=== PATIENT | male | born 1960 | race Caucasian/White ===

== ENCOUNTER 2019-09-06 10:55 | Outpatient (CLI) | payer OTHER, SELFPAY ==
--- NOTE | ~2019-09-06 | CT_ITS ---
EXAMINATION: CT lung screening DATE: 09/06/2019 11:19 INDICATION: Personal history of tobacco dependence, current smoker with 30 pack year history TECHNIQUE: Computed tomography (CT) of the chest was performed without intravenous contrast. The dose -length product (DLP) was 171.02 mGy-cm. Automated exposure control and iterative reconstruction tech mobileo were employed. COMPARISON: None FINDINGS: There is elevation of the right hemidiaphragm. A 4 mm nodule is present in the medial aspec t of the left lower lobe on image 74. There is an area of scarring in the right lower lobe. There is no pleural effusion or pneumothorax. No pathologically enlarged thoracic lymph nodes are identified. The heart size is normal. Calcified coronary artery atherosclerosis is noted. There is moderate thora cic spondylosis. IMPRESSION: 1. Lung-RADS category 2: Benign appearance or behavior. Continue annual screening with noncontrast lo w-dose chest CT in 12 months. Reviewed, dictated and finalized at location A. IMPRESSION: 1. Lung-RADS category 2: Benign appearance or behavior. Continue annual screeni ng with noncontrast low-dose chest CT in 12 months.
== END 2019-09-06 10:56 | disposition home or self-care (01) ==
LOC: ANHIMG 11:04
PROVIDERS: PCP Physician Assistant; Visit Provider Physician Assistant
DX: Z12.2 Encounter for screening for malignant neoplasm of respiratory organs (principal); Z87.891 Personal history of nicotine dependence
CPT/HCPCS: G0297

== ENCOUNTER 2020-10-23 13:46 | Outpatient (CLI) | payer MEDICARE, SELFPAY ==
--- NOTE | ~2020-10-23 | CT_ITS ---
EXAMINATION:CT lung screening DATE: 10/23/2020 14:18 INDICATION: Tobacco use. Current smoker with 30 pack year history. TECHNIQUE: Computed tomography (CT) of the chest was performed without intravenous contrast. Automate d exposure control and iterative reconstruction technique were employed. The dose-length product (DLP ) was 174.45 mGy-cm. COMPARISON: Chest CT 09/06/2019 FINDINGS: There is chronic elevation of right hemidiaphragm. There is mild atelectasis in the lungs, worst in right lower lobe. A calcified right lung nodule is consistent with old granulomatous disease . No pleural effusion. The heart size is normal. There are coronary artery calcifications. No pericar dial effusion. There are suture anchors in left humeral head. There are bridging endplate osteophytes at multiple levels in the spine, consistent with diffuse idiopathic skeletal hyperostosis (DISH). IMPRESSION: 1. Lung-RADS category 1: Negative. Continue annual screening with noncontrast low-dose chest CT in 12 months. Reviewed, dictated and finalized at location A. IMPRESSION: 1. Lung-RADS category 1: Negative. Continue annual screening with noncontrast l ow-dose chest CT in 12 months.
== END 2020-10-23 13:47 | disposition home or self-care (01) ==
PROVIDERS: PCP Physician Assistant; Visit Provider Physician Assistant
DX: Z13.6 Encounter for screening for cardiovascular disorders (principal); Z72.0 Tobacco use
CPT/HCPCS: 71271

== ENCOUNTER → 2021-11-02 10:01 | Outpatient (CLI) | payer MEDICARE, SELFPAY ==
--- NOTE | ~2021-11-02 | XR_ITS ---
XR orbits min 4V DATE: 11/02/2021 10:28 INDICATION: Right thigh swelling TECHNIQUE: AP and bilateral oblique views COMPARISON: None FINDINGS: The frontozygomatic sutures and orbital rims and floors appear intact bilaterally. No orbit al emphysema is evident. No radiopaque foreign body is identified. The frontal, ethmoid and maxillary sinuses and mastoid air cells appear normally developed and aerate d bilaterally. IMPRESSION: Negative orbits Reviewed, dictated and finalized at location B. IMPRESSION: Negative orbits
== END ==
PROVIDERS: PCP Physician Assistant; Visit Provider Physician Assistant
DX: H57.89 Other specified disorders of eye and adnexa (principal)
CPT/HCPCS: 70200

== ENCOUNTER 2021-11-15 08:23 | Outpatient (CLI) | payer MEDICARE, SELFPAY ==
--- NOTE | ~2021-11-15 | CT_ITS ---
EXAMINATION: CT lung screening DATE: 11/15/2021 08:54 INDICATION: PERS HX OF NICOTINE DEPENDENCE TECHNIQUE: Computed tomography (CT) of the chest was performed without intravenous contrast. Addition al 3D reconstructions utilizing coronal maximum intensity projection (MIP) were performed. Automated exposure control and iterative reconstruction technique were employed. The dose-length product was 15 3.12 mGy-cm. COMPARISON: 11/19/2020 FINDINGS: Chronic elevation of the right hemidiaphragm. Unchanged small calcified nodule in the right lower lob e consistent with old granulomatous disease. No other new or enlarging pulmonary nodules Unchanged sa gittally oriented linear band of discoid atelectasis/scarring extending from the superior to inferior through the right lower lobe. No pneumonia, pulmonary edema or pleural effusion. Heart size is daryn l. Atherosclerotic coronary artery calcifications. No pericardial effusion. No pathologically enlarge d thoracic lymphadenopathy. Visualized upper abdomen is unremarkable. There are bridging osteophytes at multiple levels in the spine, consistent with diffuse idiopathic skeletal hyperostosis (DISH). Sut ure anchors at the left humeral head consistent with prior rotator cuff repair. IMPRESSION: 1. . Lung-RADS category 1: Negative. Continue annual screening with noncontrast low-dose chest CT in 12 months. Reviewed, dictated and finalized at location B.
== END 2021-11-15 08:24 | disposition home or self-care (01) ==
PROVIDERS: PCP Physician Assistant; Visit Provider Physician Assistant
DX: Z12.2 Encounter for screening for malignant neoplasm of respiratory organs (principal); Z87.891 Personal history of nicotine dependence
CPT/HCPCS: 71271

== ENCOUNTER 2022-07-15 16:17 | Outpatient (CLI) | payer MEDICARE, SELFPAY ==
--- NOTE | ~2022-07-15 | MR_ITS ---
EXAMINATION: MR brain/brain stem wo/w con DATE: 07/15/2022 17:20 INDICATION: Left-sided oculomotor nerve palsy. Diplopia. TECHNIQUE: Magnetic resonance imaging (MRI) of the brain and brainstem was performed without and with 17 mL MultiHance intravenous contrast. COMPARISON: None. FINDINGS: There are scattered areas of nonspecific increased T2-weighted signal intensity in the cere bral and cerebellar white matter and ev. There is no intracranial hemorrhage, acute infarction, or abnormal intracranial mass lesion. The ventricles are normal in size. The paranasal sinuses are clear . The orbits are normal. The mastoid air cells are normal. IMPRESSION: 1. Extensive nonspecific cerebral and cerebellar white matter disease and pontine disease, which like ly represents chronic small vessel ischemic disease. Reviewed, dictated and finalized at location A. TELLER IMPRESSION: 1. Extensive nonspecific cerebral and cerebellar white matter disease and ponti ne disease, which likely represents chronic small vessel ischemic disease.
== END 2022-07-15 16:18 | disposition home or self-care (01) ==
PROVIDERS: PCP Physician Assistant
DX: H49.02 Third [oculomotor] nerve palsy, left eye (principal); R93.0 Abnormal findings on diagnostic imaging of skull and head, not elsewhere classified
CPT/HCPCS: 70553; A9577

== ENCOUNTER 2022-11-19 09:02 | Outpatient (CLI) | payer MEDICARE, SELFPAY ==
--- NOTE | ~2022-11-19 | CT_ITS ---
CT Scan of the Chest without Contrast: Clinical Indication: Lung cancer screening, personal history of nicotine dependence Technique: Contiguous sections were acquired throughout the chest without intravenous contrast. Dose reduction technique was used on this scan by utilizing automated exposure control and iterative recon struction technique. The dose-length product (DLP) was 211.46 mGy-cm. COMPARISON: 11/15/2021, 10/23/2020 Findings: There is no evidence of any significant mediastinal, hilar or axillary lymphadenopathy. The mediastin al soft tissues appear normal. There is no evidence of pleural or pericardial effusion. Stable right lower lobe scarring noted. No pulmonary nodule seen. Images through the upper abdomen reveal no abnormalities. DISH of the thoracic spine noted. Impression: Lung RADS 2: Benign appearance. 12 month follow-up screening CT advised. Reviewed, dictated and finalized at [facility]. Impression: Lung RADS 2: Benign appearance. 12 month follow-up screening CT advised.
== END 2022-11-19 09:03 | disposition home or self-care (01) ==
PROVIDERS: PCP Physician Assistant; Visit Provider Physician Assistant
DX: Z12.2 Encounter for screening for malignant neoplasm of respiratory organs (principal); Z87.891 Personal history of nicotine dependence
CPT/HCPCS: 71271

== ENCOUNTER 2023-12-19 11:46 | Outpatient (CLI) | payer MEDICARE, SELFPAY ==
--- NOTE | ~2023-12-19 | CT_ITS ---
EXAMINATION:CT lung screening DATE: 12/19/2023 12:36 INDICATION: Personal history of nicotine dependence. Current smoker with 30 pack year history. TECHNIQUE: Computed tomography (CT) of the chest was performed without intravenous contrast. Automate d exposure control and iterative reconstruction technique were employed. The dose-length product (DLP ) was 240.67 mGy-cm. COMPARISON: Chest CT 11/19/2022 FINDINGS: The lungs demonstrate mild scarring in right lower lobe. A calcified right lung nodule is c onsistent with old granulomatous disease. No pleural effusion. There is chronic elevation of right he midiaphragm. The heart size is normal. There are coronary artery calcifications. No pericardial effus ion. There are bridging endplate osteophytes at multiple levels in the spine, consistent with diffuse idiopathic skeletal hyperostosis (DISH). There is a suture anchor in right humeral head. IMPRESSION: 1. Lung-RADS category 2: Benign appearance or behavior. Continue annual screening with noncontrast lo w-dose chest CT in 12 months. Reviewed, dictated and finalized at location E. IMPRESSION: 1. Lung-RADS category 2: Benign appearance or behavior. Continue annual screeni ng with noncontrast low-dose chest CT in 12 months.
== END 2023-12-19 11:47 | disposition home or self-care (01) ==
PROVIDERS: PCP Physician Assistant; Visit Provider Physician Assistant
DX: Z12.2 Encounter for screening for malignant neoplasm of respiratory organs (principal); Z87.891 Personal history of nicotine dependence
CPT/HCPCS: 71271

== ENCOUNTER 2024-12-16 18:33 | Emergency (ER) | payer MEDICARE, SELFPAY ==
[2024-12-16 18:34] VITALS: BP 138/99; PULSE 99; RESP 18; TEMP 36.6; O2SAT 100
[2024-12-16 19:06] LABS: Basophils Absolute Auto 0.1 K/mm3 (0.0-0.1); Basophils Percent Auto 0.7 % (0.2-1.2); Eosinophils Absolute Auto 0.4 K/mm3 (0-0.3); Eosinophils Percent Auto 4.6 % (0-4.4); Hematocrit 39.3 % (42.0-52.0); Hemoglobin 11.9 g/dL (14.0-18.0); Immature Granulocyte Absolute 0.03 K/mm3 (0.00-0.031); Immature Granulocyte Percent A 0.4 % (0-0.5); Lymphocytes Absolute Auto 2.08 K/mm3 (0.9-3.2); Lymphocytes Percent Auto 24.8 % (18.3-44.2); Mean Corpuscular HGB Conc 30.3 g/dl (32-36); Mean Corpuscular Hemoglobin 24.5 pg (26-34); Mean Corpuscular Volume 80.9 fl (80-100); Mean Platelet Volume 8.5 fl (7.4-10.4); Monocytes Absolute Auto 0.7 K/mm3 (0.1-0.6); Monocytes Percent Auto 8.6 % (2.6-8.5); Neutrophils Absolute Auto 5.1 K/mm3 (1.3-6.7); Neutrophils Percent Auto 60.9 % (45.5-73.1); Platelet Count Result 250 k/mm3 (150-375); Red Blood Count 4.86 M/mm3 (4.6-6.20); Red Cell Distribution Width 16.8 % (11.5-14.5); White Blood Count 8.4 K/mm3 (4.5-10.0)
[2024-12-16 19:13] LABS: Add Urine Microscopic? YES; Appearance Urine Cloudy (Clear); Bacteria Urine None Seen /hpf; Bilirubin Urine Negative (Negative); Blood Urine 1+ (Negative); Color Urine Yellow (Yellow); Glucose Urine UA 3+ mg/dL (Negative); Ketones Urine Negative (Negative); Leukocyte Esterase Ur 3+ LEU/UL (Negative); Nitrate Urine Negative (Negative); Non Pathogenic Casts 0-2; Protein Urine 1+ mg/dL (Negative); Specific Grav Ur 1.022 (1.001-1.035); Squamous Epithelial Cell Urine None Seen /hpf (Few); Urobilinogen Urine 0.2 mg/dL (<2.0); WBC Urine >100 /hpf (0-3)
[2024-12-16 19:16] LABS: Anion Gap 10 mmol/L (4-12); Blood Urea Nitrogen 16 mg/dL (9-20); Calcium 9.4 mg/dL (8.4-10.2); Carbon Dioxide 25 mmol/L (22-30); Chloride 101 mmol/L (98-107); Estimated CRCL calculation 130 ml/min; Estimated Glomerular Filt Rate > 60; Glucose 101 mg/dL (65-110); Potassium 4.5 mmol/L (3.4-5.0); Sodium 136 mmol/L (137-145)
--- NOTE | 2024-12-16 20:30 | ED_ITS ---
HPI - Male Genitourinary General Chief complaint: Urogenital-Male Stated complaint: urinary cath problems Time Seen by Provider: 12/16/24 18:47 Source: patient Mode of arrival: EMS Limitations: no limitations History of Present Illness HPI Narrative: Patient is a 64-year-old male who presents the ED via EMS with report of suprapubic catheter issues. Patient is a resident of [facility]. He is bed-bound at baseline. Per half-way report, suprapubic catheter has not been draining appropriately today. Patient began complaining of lower abdominal pain. Sent here for further evaluation. Related Data Home Medications ?Medication ?Instructions ?Recorded ?Confirmed ?Last Taken ?Type aspirin 81 mg tablet,delayed 81 mg PO DAILY 06/01/19 01/02/21 Unknown History release cyclobenzaprine 10 mg tablet 10 mg PO ONCE PRN 06/01/19 01/02/21 Unknown History gabapentin 300 mg capsule 600 mg PO BID 06/01/19 01/02/21 Unknown History metformin 1,000 mg tablet 1,000 mg PO BID 06/01/19 01/02/21 Unknown History insulin glargine 100 unit/mL (3 25 unit subcut BID 01/05/20 01/02/21 Unknown History mL) subcutaneous pen (Lantus Solostar U-100 Insulin) lisinopril 20 mg tablet 20 mg PO DAILY 01/02/21 01/02/21 Unknown History Allergies Allergy/AdvReac Type Severity Reaction Status Date / Time codeine Allergy Unknown Unknown Verified 12/16/24 18:40 Review of Systems 2 Review of Systems: All systems reviewed & are unremarkable except as noted in HPI. All systems reviewed & are unremarkable except as noted in HPI and below PMFSH Past Medical History Medical History History of left heart catheterization Elevated lipids Diabetes Asthma Arthritis Surgical History Surgical History History of lumbosacral spine surgery Family History Family History Mother Family history of primary malignant neoplasm of liver, Onset Age: 69 Social History Social History (Reviewed 12/16/24 @ 21:21 by SHANNON Monroy Smoking status: Current every day smoker Exam 2 Narrative: GENERAL: Chronically ill-appearing, thin, non-toxic, in no acute distress. HEAD: Normocephalic, atraumatic. RESPIRATORY: Airway patent, respirations nonlabored. CARDIOVASCULAR: Regular rate and rhythm without murmurs, rubs, or gallops. ABDOMINAL: Soft, no appreciable tenderness, nondistended. Normoactive BS. Suprapubic catheter in place in lower abdomen. No drainage from stoma. MUSCULOSKELETAL: No gross deformities. SKIN: Warm, dry, normal color. NEURO: A&O X3. Speech clear. No ataxic movements. PSYCHIATRIC: Appropriate mood and affect. Normal interaction. Course Vital Signs Vital signs: Vital Signs Temperature 97.9 F 12/16/24 18:34 Pulse Rate 99 12/16/24 18:34 Respiratory Rate 18 12/16/24 18:34 Blood Pressure 138/99 H 12/16/24 18:34 Pulse Oximetry 100 12/16/24 18:34 Oxygen Delivery Room Air 12/16/24 18:34 Temperature 97.9 F 12/16/24 18:34 Pulse Rate 88 12/16/24 20:56 Respiratory Rate 14 12/16/24 20:56 Blood Pressure 90/63 L 12/16/24 20:56 Pulse Oximetry 100 12/16/24 20:56 Oxygen Delivery Room Air 12/16/24 18:34 MDM - Male Genitourinary MDM Narrative Medical decision making narrative: Patient presented to ED from local half-way facility with concern for dysfunctional suprapubic catheter. Patient bedbound at baseline. A&O x4. Vital signs are stable upon arrival. Initial bladder scan showed at least 800 mL of urine in patient's bladder. Suprapubic catheter was replaced in the ED by Austin Yancey PRIOR AUTHORIZATION TECHNICIAN. Began draining appropriately. Nearly 1 L of urine draining. Laboratory studies were obtained and reassuring. No leukocytosis. Stable kidney function. Stable electrolytes. UA does appear infectious. No records to compare to. No previous urine cultures on record. 3+ leuk esterase, greater than 100 WBC. Sent for culture here. Will treat for infection. Given dose of Rocephin in the ED. On re-evaluation, patient is feeling significantly better. He denies any abdominal or flank pain. Denies nausea, vomiting, fevers. No signs or symptoms suggest systemic infection or need for further labs or imaging at this time. Feel patient is safe for discharge back to half-way on oral antibiotics. Return precautions discussed. Discharged in stable condition. Medical Records Attestation: I reviewed the patient's medical records. Lab Data Attestation: I reviewed the patient's lab results. 12/16/24 18:58 12/16/24 18:58 Labs: Lab Results 12/16/24 Range/Units 18:58 WBC 8.4 (4.5-10.0) K/mm3 RBC 4.86 (4.6-6.20) M/mm3 Hgb 11.9 L (14.0-18.0) g/dL Hct 39.3 L (42.0-52.0) % MCV 80.9 (80-100) fl MCH 24.5 L (26-34) pg MCHC 30.3 L (32-36) g/dl RDW 16.8 H (11.5-14.5) % Plt Count 250 (150-375) k/mm3 MPV 8.5 (7.4-10.4) fl Immature Gran % (Auto) 0.4 (0-0.5) % Neut % (Auto) 60.9 (45.5-73.1) % Lymph % (Auto) 24.8 (18.3-44.2) % Evans % (Auto) 8.6 H (2.6-8.5) % Eos % (Auto) 4.6 H (0-4.4) % Baso % (Auto) 0.7 (0.2-1.2) % Lymph # (Auto) 2.08 (0.9-3.2) K/mm3 Evans # (Auto) 0.7 H (0.1-0.6) K/mm3 Eos # (Auto) 0.4 H (0-0.3) K/mm3 Baso # (Auto) 0.1 (0.0-0.1) K/mm3 Abs Immat Gran (auto) 0.03 (0.00-0.031) K/mm3 Absolute Neuts (auto) 5.1 (1.3-6.7) K/mm3 Absolute Nucleated RBC 0.000 (0.0-0.012) K/mm3 Nucleated RBC % 0.0 (0.0-0.2) % Sodium 136 L (137-145) mmol/L Potassium 4.5 (3.4-5.0) mmol/L Chloride 101 (98-107) mmol/L Carbon Dioxide 25 (22-30) mmol/L Anion Gap 10 (4-12) mmol/L BUN 16 (9-20) mg/dL Creatinine 0.38 L (0.7-1.3) mg/dL Estim Creat Clear Calc 130 ml/min Estimated GFR > 60 (59 - ) Glucose 101 (65-110) mg/dL Calcium 9.4 (8.4-10.2) mg/dL Urine Color Yellow (Yellow) Urine Appearance Cloudy H (Clear) Urine pH 7.0 (5.0-9.0) Ur Specific Perry 1.022 (1.001-1.035) Urine Protein 1+ H (Negative) mg/dL Urine Glucose (UA) 3+ H (Negative) mg/dL Urine Ketones Negative (Negative) mg/dL Ur Blood (Man) 1+ H (Negative) Urine Nitrate Negative (Negative) Urine Bilirubin Negative (Negative) Urine Urobilinogen 0.2 (<2.0) mg/dL Leukocyte Esterase Rfl 3+ H (Negative) BERTO/UL Urine RBC 11-20 H (0-2) /hpf Urine WBC >100 H (0-3) /hpf Ur Squamous Epith Cells None seen (Few) /hpf Urine Bacteria None seen /hpf Urine Casts 0-2 Discharge Plan Discharge Clinical Impression: Blocked suprapubic catheter Qualifiers: Encounter type: initial encounter Qualified Code(s): T83.090A - Other mechanical complication of cystostomy catheter, initial encounter UTI (urinary tract infection) Qualifiers: Urinary tract infection type: catheter-associated UTI Indwelling urinary catheter type: cystostomy catheter Encounter type: initial encounter Qualified Code(s): T83.510A - Infection and inflammatory reaction due to cystostomy catheter, initial encounter Patient Disposition: [facility] Nursing Home/Asst Living Condition: Stable Instructions: Antibiotic Form, Urinary Tract Infection in Men (ED), Daniels Catheter Placement and Care (ED), How to Care for Your Suprapubic Catheter (DC) Additional Instructions: Patient's suprapubic catheter was replaced in the ED. He was diagnosed with a urinary tract infection. Take antibiotics as prescribed. Follow-up with primary care doctor for urine culture results. Return to the ED for new or worsening concerns, abdominal or flank pain, fevers, unable to keep down food or drink, or any other symptoms of concern. Patient Language: Panamanian Prescriptions: New cephalexin 500 mg capsule 500 mg PO Q6H 7 Days Qty: 28 0RF cephalexin 500 mg capsule 500 mg PO Q6H 7 Days Qty: 28 0RF No Action metformin 1,000 mg tablet 1,000 mg PO BID cyclobenzaprine 10 mg tablet 10 mg PO ONCE PRN gabapentin 300 mg capsule 600 mg PO BID aspirin 81 mg tablet,delayed release (DR/EC) 81 mg PO DAILY pravastatin 10 mg tablet 10 mg PO DAILY Qty: 30 5RF Lantus Solostar U-100 Insulin 100 unit/mL (3 mL) insulin pen 25 unit SUB-Q BID lisinopril 20 mg tablet 20 mg PO DAILY Follow-up/Referrals: Arcenio,BOBBY Ordaz [Primary Care Provider] - Time of Disposition: 21:12
[2024-12-16 20:56] VITALS: BP 90/63; PULSE 88; RESP 14; O2SAT 100
--- NOTE | 2024-12-16 21:39 | PC.NURSE ---
This RN called pts facility but received no answer.
[2024-12-16] MEDS: SODIUM CHLORIDE 0.9% IV 1,000 ML 999 ML IV CONT (21:47)
[2024-12-16 22:01] VITALS: BP 123/88; PULSE 78; RESP 14; O2SAT 100
--- NOTE | 2024-12-16 23:20 | PC.NURSE ---
This RN spoke with pts nurse at [facility]. This RN updated pts RN about antibiotics and POC
[2024-12-16 23:23] VITALS: BP 123/88; PULSE 78; RESP 14; O2SAT 100
== END 2024-12-16 23:24 ==
PROVIDERS: Emergency Provider Physician Assistant; PCP Physician Assistant
DX: T83.090A Other mechanical complication of cystostomy catheter, initial encounter (principal); T83.510A Infection and inflammatory reaction due to cystostomy catheter, initial encounter; E11.9 Type 2 diabetes mellitus without complications; J45.909 Unspecified asthma, uncomplicated; M19.90 Unspecified osteoarthritis, unspecified site; F17.200 Nicotine dependence, unspecified, uncomplicated; Z74.01 Bed confinement status; Z79.84 Long term (current) use of oral hypoglycemic drugs; Z79.82 Long term (current) use of aspirin; Z79.899 Other long term (current) drug therapy; Y83.3 Surgical operation with formation of external stoma as the cause of abnormal reaction of the patient, or of later complication, without mention of misadventure at the time of the procedure
CPT/HCPCS: 36415; 51705; 80048; 81001; 85025; 87086; 96361; 96365; 99284; 99285; J0696; J7030

== ENCOUNTER 2024-12-23 21:07 | Emergency (ER) | payer MEDICARE, SELFPAY ==
[2024-12-23 21:22] VITALS: BP 104/70; PULSE 90; RESP 25; TEMP 37.2; O2SAT 99
--- NOTE | 2024-12-23 22:49 | PC.NURSE ---
2129---Patient has indwelling suprapubic catheter draining to gravity bag
[2024-12-23 22:55] VITALS: BP 92/64; PULSE 91; RESP 25; O2SAT 97
--- NOTE | 2024-12-23 23:17 | PC.NURSE ---
Bedside report to Rhianna MONROY
[2024-12-23 23:23] VITALS: PULSE 92; RESP 22; O2SAT 99
[2024-12-23 23:30] VITALS: PULSE 93; RESP 21; O2SAT 98
[2024-12-23 23:47] VITALS: PULSE 95; RESP 16; O2SAT 100
[2024-12-24] VITALS (28 sets, daily range): BP systolic 107–131; BP diastolic 69–86; PULSE 76–87; RESP 11–22; TEMP 36.6; O2SAT 94–100
--- OUTSIDE RECORDS SUMMARY | 2024-12-24 00:03 | XMS_ITS ---
Author Organization [facility] Health Address [address] [place] [address] Care Team Providers Care [employer] Deburrer Name Role Phone Bro Hernandez MD Unavailable Dong Castillo MD Primary Care Provider [phone] Active Problems Problem Noted Date Diagnosed Date Macular edema due to type 1 diabetes mellitus Abducens nerve palsy 09/09/2024 Asthma 09/09/2024 Chronic pain 09/09/2024 Contact dermatitis 09/09/2024 Diabetes mellitus 09/09/2024 Diabetic neuropathy 09/09/2024 Diabetic macular edema 09/09/2024 Muscle pain 09/09/2024 Paralytic strabismus 09/09/2024 Hyperlipidemia 09/09/2024 Essential hypertension 09/09/2024 Hypertensive disorder 09/09/2024 Impotence 09/09/2024 Male erectile dysfunction, unspecified Cervical spinal stenosis 08/24/2024 Benign essential HTN 08/24/2024 Acute hypoxic respiratory failure 08/24/2024 Infection of penile implant 08/24/2024 Anemia of chronic disease 08/24/2024 Cervical myopathy 08/20/2024 Severe protein-calorie malnutrition 08/20/2024 Type 2 diabetes mellitus, wi th long-term current use of insulin 08/19/2024 Renal cell carcinoma of left kidney 08/19/2024 Right leg numbness 08/19/2024 Neuropathy 08/19/2024 Restless leg syndrome 08/19/2024 Displacement of implanted pe nile prosthesis, initial encounter 08/18/2024 Bilateral carpal tunnel syndrome 06/10/2024 History of colonic polyps 03/26/2024 Falls frequently 02/02/2024 Fatigue 02/02/2024 PVD (peripheral vascular disease) 02/02/2024 Neuropathy 02/02/2024 Diabetes mellitus due to und erlying condition with diabetic nephropathy, with long-term current use of insulin 02/02/2024 Annual physical exam 12/07/2023 Cubital tunnel syndrome, bilateral 12/07/2023 Other dysphagia 12/07/2023 Chronic constipation 11/15/2022 History of colonoscopy with polypectomy 11/16/19 23 Cigarette smoker 11/04/2022 Tobacco abuse 11/04/2022 Myalgia 06/18/2022 Abnormal EKG 03/24/2022 Irregular heart beat 03/24/2022 Sensorineural hearing loss (SNHL) of both ears 0 11/26/2021 Tinnitus of both ears 11/26/2021 Rectal polyp 10/18/2020 Type 2 diabetes mellitus wit h established diabetic nephropathy 09/19/2020 HLD (hyperlipidemia) 09/19/2020 Vitamin D deficiency 09/19/2020 Microalbuminuria 09/27/2019 Chronic low back pain 09/05/2019 Personal history of nicotine dependence 09/05/19 Personal history of renal cell carcinoma 020 Overview (09/09/2024): 09/2018 left partial nephrectomy with Urologist Dr.Zachary Hernandez Primary hypertension 09/05/2019 Cigar smoker 08/19/2019 Overview (09/09/2024): 20 years (3-7 per day) and cigarettes beforex 10 years at 2ppd. Seasonal allergies 08/19/2019 RLS (restless legs syndrome) 08/19/2019 Type 2 diabetes mellitus wit h hypoglycemia without coma, with long-term current use of insulin 08/19/2019 Impotence due to erectile dysfunction 03/01/2019 GUEVARA (obstructive sleep apnea) 04/09/2018 Overview (09/09/2024): Mild Renal mass, left Current Treatment and Therapy Plans No current plan information found. Past Treatment and Therapy Plans No past plan information found. Lifetime Dose Tracking * Chemical Lifetime Dose Automatic Entry Manual Entr y Dose Length Product 3,127 mGy-cm 3,127 mGy-cm 0 mGy-cm
--- OUTSIDE RECORDS SUMMARY | 2024-12-24 00:03 | XMS_ITS | Clinical Summary ---
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 Name Role Phone Cassie Rg Primary Care Provider [phone]- [phone] Essence Mccloud MD Unavailable To Dominguez MD Unavailable [phone] Allergies Active Allergy Reactions Criticality Noted Date Comments Hema Cueva Medium 12/01/2017 Medications aspirin-calcium carbonate 81 mg-300 mg calcium(777 mg) tablet Take 81 mg by mouth daily Active lancets misc Use to test blood sugar 3 time per day DX E11.65 100 each 11 06/02/20 21 Active ergocalciferol (VITAMIN D) 50,000 unit capsule Take 1 capsule (50,000 Units total) by mouth once a week 12 capsule 3 11/02/19 22 Active blood pressure monitor kit 1 Device daily Check blood pressure daily after sitting for 5 minutes with both feet on the ground and the arm supports at the waist. 1 kit 1 04/17/20 22 Active senna-docusate (PERICOLACE) 8.6-50 mg Take 1-2 tabs nightly for constipation management. 60 tablet 3 11/16/19 23 Active albuterol HFA (PROVENTIL HFA,VENTOLIN HFA,PROAIR HFA) 90 mcg/actuation inhaler Inhale 2 puffs every 6 (six) hours as needed for wheezing 1 each 3 05/27/20 23 Active fluticasone propionate (FLONASE) 50 mcg/actuation nasal sprayIndications:S easonal allergies SHAKE LIQUID AND USE 2 SPRAYS IN EACH NOSTRIL DAILY 48 g 1 07/14/19 24 Active gabapentin (NEURONTIN) 600 mg tabletIndications: Type 2 diabetes mellitus with hyperglycemia, with long-term current use of insulin (HCC) TAKE 1 TABLET(600 MG) BY MOUTH THREE TIMES DAILY 270 tablet 1 08/28/19 24 Active insulin glargine-lixisenat silas (Soliqua 100/33) 100 unit-33 mcg/mL insulin penIndications:typ e 2 diabetes mellitus Inject 40 Units under the skin daily E11.65. receives from patient assistance program. Active blood-glucose meter kit Use to test blood sugar 3 time per day DX E11.65 1 kit 1 10/29/19 24 Active blood-glucose meter misc 1 Application as needed (as needed to check glucose) 1 each 02/09/20 24 Active blood glucose diagnostic (OneTouch Ultra Test) strip USE TO TEST THREE TIMES DAILY e11.65 300 strip 3 02/10/20 24 Active lisinopriL (PRINIVIL,ZESTRIL) 20 mg tablet Take 1 tablet (20 mg total) by mouth daily 04/05/20 24 Active rOPINIRole (REQUIP) 2 mg tablet Take 1 tablet (2 mg total) by mouth nightly 90 tablet 1 06/10/20 24 Active pen needle, diabetic 32 gauge x 5/32 needle Use with insulin pen nightly. (Dispense what is in formulary with the patients insurance) 100 each 3 07/09/19 25 Active atorvastatin (LIPITOR) 40 mg tabletIndications: Type 2 diabetes mellitus with hyperlipidemia (HCC) TAKE 1 TABLET BY MOUTH EVERY DAY AT NIGHT 90 tablet 1 08/02/19 25 Active metFORMIN (GLUCOPHAGE) 1,000 mg tabletIndications: Type 2 diabetes mellitus with hyperglycemia, with long-term current use of insulin (HCC) TAKE 1 TABLET BY MOUTH TWICE A DAY WITH MEALS 180 tablet 3 08/17/19 25 Active Active Problems Problem Noted Date Diagnosed Date Bilateral carpal tunnel syndrome 06/10/2024 Need for influenza vaccination 04/05/2024 Assessment & Plan (04/05/2024 5:28 AM CDT): Flu vaccine updated in the office today Encounter for screening colonoscopy 03/26/2024 History of colonic polyps 03/26/2024 PVD (peripheral vascular disease) 02/02/2024 Assessment & Plan (05/14/2024 10:17 AM ALARM ADJUSTER): ABIs falsely elevated due to noncompressibility vessels however has triphasic waveforms throughout. This would not be the cause of his pain, I suspect this is due to his history of lumbosacral spine disease and surgical intervention, recommend further evaluation by his PCP or spine surgery. Assessment & Plan (04/23/2024 10:38 AM CDT): ABIs falsely elevated due to noncompressibility of vessels, likely has underlying PVD, formal Doppler ordered for further evaluation. Overall I suspect majority of his claudication type symptoms may be neurogenic in nature or due to deconditioning as he has been minimally ambulatory since his spine procedure. Continue risk factor modification with ASA statin therapy and good blood sugar control. Assessment & Plan (04/05/2024 5:27 AM CDT): Patient has claudication symptoms. ABIs showed noncompressible vessels secondary to dense atherosclerotic plaque. Have referred to Dr. Howard. Appointment on 04/21. Will await recommendations Assessment & Plan (02/02/2024 8:01 PM CDT): Patient has providing symptoms that sound consistent with claudication. This could be vascular and or neurogenic. Will get ABIs to see if is vascular. If it is not may consider MRI lumbar spine for further evaluation. Falls frequently 02/02/2024 Assessment & Plan (02/02/2024 8:02 PM CDT): Patient is continuing to have frequent falls. Will look into claudication and try to determine the underlying cause. Offered physical therapy. Reviewed fall risk safety aspects. Continue to monitor closely Neuropathy 02/02/2024 Assessment & Plan (02/02/2024 8:02 PM CDT): Patient with known neuropathy. Continue gabapentin 600 t.i.d.. Reminded patient that this medicine can contribute to dizziness and fall risk. Vitamin D deficiency 02/02/2024 Assessment & Plan (02/02/2024 8:02 PM CDT): Supplement Fatigue 02/02/2024 Assessment & Plan (02/02/2024 8:02 PM CDT): Probably multifactorial. Check labs and followup to re-evaluate Diabetes mellitus due to und erlying condition with diabetic nephropathy, with long-term current use of insulin 02/02/2024 Assessment & Plan (04/05/2024 5:28 AM CDT): Continue diabetes management with Sakina Ramesh nurse practitioner. Has neuropathy symptoms. Is currently on gabapentin 600 mg t.i.d.. Will await recommendations from Dr. Howard as his claudication symptoms may be also contributing to leg pain. If persists may need to follow-up with radicular aspect with pain management Assessment & Plan (02/02/2024 8:02 PM CDT): Patient with known diabetes Other dysphagia 12/07/2023 Assessment & Plan (12/07/2023 9:37 PM CDT): Patient has history of dysphagia. He is also due for his colonoscopy. He is to contact GI Dr. Vee's office. He was scheduled in June but the procedure had to be canceled because he did not do the prep correctly. My staff reached out to Dr. Vee's office and was told to put a new referral and they will work on getting him scheduled promptly. I made patient aware of this Cubital tunnel syndrome, bilateral 12/07/2023 Assessment & Plan (12/07/2023 9:36 PM CDT): Patient has already worked with Dr. Bueno, in [place] and has had the hand numbness worked up. He was scheduled for surgery but had to cancel because his A1c was too high. Encouraged him to contact Dr. Ba as his A1c has improved and hopefully he can get surgery scheduled to address his symptoms. He is currently using gabapentin 1200 mg b.i.d.. Advised he should not increase this dose as he is getting close to the max dose Annual physical exam 12/07/2023 Assessment & Plan (12/07/2023 9:44 PM CDT): Encouraged healthy lifestyle, good nutrition and exercise. Encouraged Calcium and Vitamin D and weight bearing exercise for bone health. Reviewed immunizations Reviewed age appropirate screenings. Colon cancer screening 2023 Assessment & Plan (04/05/2024 5:28 AM CDT): Refer back to Dr. Vee for continued colon cancer monitoring Assessment & Plan (12/07/2023 9:41 PM CDT): Past due for colon cancer screening. Referral back to Dr. Vee as he did not prep correctly the 1st time Assessment & Plan (2023 12:24 AM ALARM ADJUSTER): Encouraged healthy lifestyle, good nutrition and exercise. Encouraged Calcium and Vitamin D and weight bearing exercise for bone health. Reviewed immunizations. Reviewed age appropirate screenings. Medicare Wellness Documentation is completed within the chart Chronic midline low back pain without sciatica 1 Assessment & Plan (12/07/2023 9:42 PM CDT): Patient with persistent low back pain. Advised him he needs to complete therapy to be able to order the MRI. Order provided Assessment & Plan (2023 12:24 AM ALARM ADJUSTER): Patient notes lower extremity weakness. Had back surgery in 1992 and 1994 at [facility] -- he isn't sure what was done. He has full control bowel and bladder. Using a cane as feeling like it could fall. Difficulty getting to therapy. Will provide order for physical therapy to see if we can assist with his symptoms History of colonoscopy with polypectomy 11/16/19 Assessment & Plan (2023 12:24 AM ALARM ADJUSTER): 06/2022 EGD and colonoscopy was scheduled but it was cancelled because he didn't prep correctly. Will need to reschedule. Chronic constipation 11/15/2022 Cigarette smoker 11/04/2022 Assessment & Plan (11/04/2022 10:40 AM CDT): Encouraged smoking cessation. Discussed 3 minutes. Reviewed options for assistance with cessation. 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 Pt declines assistance at this time but may contact the office at anytime for further help as they desire. Low-dose CT is due. Will place order at [facility]. Prostate cancer screening 11/04/2022 Assessment & Plan (11/04/2022 10:42 AM CDT): Check PSA Tobacco abuse 11/04/2022 Assessment & Plan (12/07/2023 9:37 PM CDT): Encouraged smoking cessation. Discussed 3 minutes. Reviewed options for assistance with cessation. Reviewed assisted sequela associated with smoking. Pt declines assistance at this time but may contact the office at anytime for further help as they desire. Mostly smoking cigars but still recommend cessation Assessment & Plan (2023 12:23 AM ALARM ADJUSTER): Patient continues to smoke primarily cigars Myalgia 06/18/2022 Assessment & Plan (06/19/2022 12:02 AM ALARM ADJUSTER): Patient has had acute cough and cold symptoms for the last week. Will check flu and COVID test. These were negative in the office so encouraged to continue to treat symptoms with attr-een-yhymkmq cough and cold medication. If symptoms worsen or do not resolve he is to follow up immediately. BMI 26.0-26.9,adult 03/24/2022 Assessment & Plan (04/05/2024 5:28 AM CDT): Weight/BMI is in healthy range. Continue healthy lifestyle to maintain. Assessment & Plan (02/02/2024 7:55 PM CDT): Weight/BMI is in healthy range. Continue healthy lifestyle to maintain. Assessment & Plan (03/24/2022 5:52 PM CDT): Weight/BMI is in healthy range. Continue healthy lifestyle to maintain. Irregular heart beat 03/24/2022 Assessment & Plan (03/24/2022 5:55 PM CDT): This is a significant, separately identifiable problem that was evaluated and managed on the same day as the wellness exam Irregular heartbeat was noted today on exam. EKG in the office was abnormal showing 84bpm Sinus rhythm with Premature supraventricular complexes Left axis deviation Possible inferior infarct, age undetermined. He denies any history of unknown heart attack. But with his diabetic history and hyperlipidemia hypertension and sleep apnea, recommend cardiology referral. Prefers to be seen in [place]. Will place the referral. Reminded patient if he was to have any type of chest pain intensifying chest pain shortness of breath with activity that is increasing or any syncopal activity he is to immediately go to the ER. He voices understanding. Abnormal EKG 03/24/2022 Assessment & Plan (03/24/2022 5:55 PM CDT): This is a significant, separately identifiable problem that was evaluated and managed on the same day as the wellness exam Irregular heartbeat was noted today on exam. EKG in the office was abnormal showing 84bpm Sinus rhythm with Premature supraventricular complexes Left axis deviation Possible inferior infarct, age undetermined. He denies any history of unknown heart attack. But with his diabetic history and hyperlipidemia hypertension and sleep apnea, recommend cardiology referral. Prefers to be seen in [place]. Will place the referral. Reminded patient if he was to have any type of chest pain intensifying chest pain shortness of breath with activity that is increasing or any syncopal activity he is to immediately go to the ER. He voices understanding. Sensorineural hearing loss (SNHL) of both ears 0 11/26/2021 Tinnitus of both ears 11/26/2021 Rectal polyp 10/18/2020 Assessment & Plan (04/05/2024 5:28 AM CDT): Refer back to Dr. Vee for continued colon cancer monitoring Assessment & Plan (11/13/2021 4:36 PM CDT): Patient with history of rectal polyp. He is due for repeat colonoscopy. Prefers to go to Dr. Vee up in [place]. Assessment & Plan (06/01/2021 11:11 PM ALARM ADJUSTER): Patient with history of rectal polyp per colonoscopy done in September of 2017 at [facility].. Due to have repeat colonoscopy for follow-up. Refer to Dr. Matthews Assessment & Plan (10/18/2020 10:39 PM CDT): Due to repeat colonoscopy. Will refer to Dr. Gates GUEVARA (obstructive sleep apnea) 09/27/2019 Assessment & Plan (04/05/2024 5:27 AM CDT): Patient needs to follow up with Dr. Mccloud, sleep Medicine. Provided his phone number again so he can get in and discuss his sleep apnea and difficulty with his CPAP machine Assessment & Plan (12/07/2023 9:41 PM CDT): Continue CPAP. Managed by Dr. Mccloud Assessment & Plan (2023 12:23 AM ALARM ADJUSTER): Continue per Dr. Sher sleep Medicine. Patient admits he has not seen him in awhile. He stopped the Nuvigil as he could not sleep with it but I am not sure if he was taking correctly. He also does not have his GUEVARA supplies Strongly encouraged him to follow-up as untreated undertreated sleep apnea and other sleep issues can lead to long-term sequela Assessment & Plan (11/04/2022 10:35 AM CDT): Patient with GUEVARA. States he has not been using his machine regular because he is getting a message stating he needs a filter and a mask. Dr. Mccloud, in [place], is who manages his sleep issues. His last note mentions orders for supplies provided but I can not tell where this was sent. Encouraged patient to contact Dr. Mccloud's office for further assistance so that we can get him going back on his CPAP machine. He is in agreement with the plan. If he has trouble contacting his office he is to call back to my office so I can assist him. Assessment & Plan (03/24/2022 5:50 PM CDT): Continue per Dr. Mccloud. Has CPAP and is trying to use nightly Assessment & Plan (06/01/2021 11:10 PM ALARM ADJUSTER): Patient has not been using his CPAP regularly he is unsure if the machine is working correctly. Dr. Blackburn his previous PCP is who ordered the last sleep study. Will refer to Dr. Mccloud sleep specialist in [place] for further evaluation so we can get him going with the CPAP again. Assessment & Plan (04/19/2020 9:17 PM CDT): Continue with CPAP. Will refer to Pulmonary for management assistance. Assessment & Plan (12/14/2019 10:25 PM CDT): This is a significant, separately identifiable problem that was evaluated and managed on the same day as the wellness exam Reviewed Sleep Apnea with patient including pathology, risk of untreated GUEVARA, Sleep study results and treatment options (Weight loss/CPAP/Dental Device). Encouraged weight loss. Will order CPAP device. Order to [facility] Home care Assessment & Plan (09/27/2019 10:38 AM CDT): Reviewed Sleep Apnea with patient including pathology, risk of untreated GUEVARA, Sleep study results and treatment options (Weight loss/CPAP/Dental Device). Encouraged weight loss. Will order CPAP device. SNAP study was done in Dr. Gómez office and they did not include a neck circumference so unable to get the recommended pressures. Will try to obtain so CPAP can be ordered. Pt is ok with [facility] Home Care. Microalbuminuria 09/27/2019 Assessment & Plan (04/19/2020 9:18 PM CDT): Avoid nephrotoxic drugs including NSAIDs. Monitor labs. Manage DM tightly. If continues to elevate may need to see nephrology Assessment & Plan (09/27/2019 10:39 AM CDT): Encouraged tighter control of DM to avoid assisted renal problems. Primary hypertension 09/05/2019 Assessment & Plan (05/14/2024 10:17 AM ALARM ADJUSTER): Stable continue lisinopril Assessment & Plan (04/23/2024 10:38 AM CDT): Stable continue lisinopril Assessment & Plan (04/05/2024 5:26 AM CDT): Stressed importance of continued A1c control to minimize the assisted effects of diabetes. Bring accuchecks to office when instructed to do so. Check A1c about every 3-6 months. Take medication as prescribed. Get annual eye exam. Encouraged ROSARIO/Statin if able to tolerate. Encouraged weight control and encouraged diabetic diet and exercise. Bp is stable/in acceptable range for any co-morbidities. Encouraged to limit sodium intake and exercise for weight control. Diabetes is managed by a nurse practitioner Sakina Ramesh Continue lisinopril 20 Assessment & Plan (01/01/2024 12:19 PM CDT): This is a chronic condition which is at goal. Goal is less than 140/90 Personally reviewed labs. Continue lisinopril Encouraged to monitor weight and B/P at home. Encouraged to take medications as prescribed. Assessment & Plan (12/07/2023 9:39 PM CDT): Bp is stable/in acceptable range for any co-morbidities. Encouraged to limit sodium intake and exercise for weight control. Continue lisinopril 20 Assessment & Plan (09/19/2023 10:42 AM CDT): This is a chronic condition which is at goal of less than 140/90 Personally reviewed labs. Continue lisinopril Encouraged to monitor weight and B/P at home Encouraged to take medications as prescribed. Assessment & Plan (2023 12:23 AM ALARM ADJUSTER): Bp is stable/in acceptable range for any co-morbidities. Encouraged to limit sodium intake and exercise for weight control. Continue lisinopril 20 Assessment & Plan (05/30/2023 2:26 PM ALARM ADJUSTER): This is a chronic condition which is at goal of less than 140/90 Personally reviewed labs. Continue lisinopril Encouraged to monitor weight and B/P at home Encouraged to take medications as prescribed. Explained correct way to take blood pressure. - After 5 minutes of sitting calmly with arm supported. Encouraged to void caffeine and excessive alcohol consumption as this will elevate B/P Assessment & Plan (12/02/2022 9:28 AM CDT): This is a chronic condition which is at goal of less than 140/90 Personally reviewed labs. Continue lisinopril Encouraged to void caffeine and excessive alcohol consumption as this will elevate B/P Encouraged to monitor weight and B/P at home Encouraged to take medications as prescribed. Assessment & Plan (11/04/2022 10:34 AM CDT): Bp is stable/in acceptable range for any co-morbidities. Encouraged to limit sodium intake and exercise for weight control. Continue lisinopril 20 Assessment & Plan (08/29/2022 12:54 PM ALARM ADJUSTER): This is a chronic condition which is not at goal . Personally reviewed labs. Continue lisinopril Encouraged to void caffeine and excessive alcohol consumption as this will elevate B/P Encouraged to monitor weight and B/P at home Explained correct way to take blood pressure. - After 5 minutes of sitting calmly with arm supported. Encouraged to take medications as prescribed. Assessment & Plan (05/31/2022 4:13 PM ALARM ADJUSTER): This is a chronic condition which is at goal after 5 minutes of rest. Personally reviewed labs. Continue lisinopril Encouraged to void caffeine and excessive alcohol consumption as this will elevate B/P Encouraged to monitor weight and B/P at home Explained correct way to take blood pressure. - After 5 minutes of sitting calmly with arm supported. Encouraged to take medications as prescribed. Assessment & Plan (04/17/2022 10:33 AM CDT): This is a chronic condition which is at goal Personally reviewed labs. Continue on lisinopril Encouraged to void caffeine and excessive alcohol consumption as this will elevate B/P Encouraged to monitor weight and B/P at home Explained correct way to take blood pressure. - After 5 minutes of sitting calmly with arm supported. Encouraged to take medications as prescribed. Assessment & Plan (03/24/2022 5:49 PM CDT): Bp is stable/in acceptable range for any co-morbidities. Encouraged to limit sodium intake and exercise for weight control. Continue lisinopril 20 Assessment & Plan (11/13/2021 4:35 PM CDT): Bp is stable/in acceptable range for any co-morbidities. Encouraged to limit sodium intake and exercise for weight control. Continue with lisinopril 20 Assessment & Plan (06/01/2021 11:09 PM ALARM ADJUSTER): Bp is stable/in acceptable range for any co-morbidities. Encouraged to limit sodium intake and exercise for weight control. Continue lisinopril Assessment & Plan (10/18/2020 10:39 PM CDT): Bp is stable/in acceptable range for any co-morbidities. Encouraged to limit sodium intake and exercise for weight control. Continue lisinopril Assessment & Plan (04/19/2020 9:17 PM CDT): Bp is stable/in acceptable range for any co-morbidities. Encouraged to limit sodium intake and exercise for weight control. Control DM Assessment & Plan (12/14/2019 10:22 PM CDT): Bp is stable/in acceptable range for any co-morbidities. Encouraged to limit sodium intake and exercise for weight control. Continue lisinopril Assessment & Plan (09/27/2019 10:38 AM CDT): Bp is stable/in acceptable range for any co-morbidities. Encouraged to limit sodium intake and exercise for weight control. Assessment & Plan (09/05/2019 4:37 PM CDT): Bp is stable/in acceptable range for any co-morbidities. Encouraged to limit sodium intake and exercise for weight control. Continue lisinopril. Chronic bilateral low back pain 09/05/2019 Assessment & Plan (09/05/2019 4:38 PM CDT): This is a significant, separately identifiable problem that was evaluated and managed on the same day as the wellness exam Pt has had multiple back surgeries. Requestinghydrocodone but it does look like he has been on this on a regular basis. Recommend finding alternatives to daily narcotic use. Has been on Flexeril. Offered PT and consider pain management. Personal history of renal cell carcinoma 020 Overview (09/05/2019): 09/2018 left partial nephrectomy with Urologist Dr.Zachary Hernandez Assessment & Plan (09/05/2019 4:49 PM CDT): 09/2018 left partial nephrectomy with Urologist Dr.Zachary Hernandez Personal history of nicotine dependence 09/05/19 20 Assessment & Plan (12/07/2023 9:40 PM CDT): Patient due for low-dose CT. Order placed. Assessment & Plan (11/13/2021 4:36 PM CDT): Due to repeat low-dose CT for lung cancer screening. Will place order Assessment & Plan (10/18/2020 10:41 PM CDT): Encouraged smoking cessation. Discussed 3 minutes. Reviewed options for assistance with cessation. 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 Pt declines assistance at this time but may contact the office at anytime for further help as they desire. Assessment & Plan (09/05/2019 4:51 PM CDT): Discussed with patient Lung Cancer screening options with the patient. Encouraged LowDose CT Patient is between 55 - 77 yo. Is a current smoker or quit in the last 15 years. Has a 30+pack years smoking history. Is currently without any signs or symptoms of lung cancer. Is willing to consider curative lung surgery if needed. G0296 Type 2 diabetes mellitus wit h hypoglycemia without coma, with long-term current use of insulin 08/19/2019 Assessment & Plan (05/04/2024 10:45 AM ALARM ADJUSTER): This is a chronic condition which is at goal with severe hypoglycemia . Goal is less than 7%. Personally reviewed most recent A1c - Lab Results Component Value Date HGBA1C 5.5 05/04/2024 Personally reviewed POC blood sugar- at goal of 80-180 Lab Results Component Value Date POCGLU 144 05/04/2024 Medication- decrease Soliqua 40 units daily in the am, stop glimeperide 4mg daily, continue metformin 1000mg twice daily. Monitor blood sugar continuously with rossy 3 cgm. Add a Rossy 3 reader was using his phone now he can not get back into the steven. we will order a reader for him Encouraged annual eye exam. Monofilament foot exam completed. Protective senses - not intact Continue gabapentin eGFR- greater than 90 Kidney function-at goal Urine microalbumin/creatinine ratio - elevated, not at goal. Goal is <30 Continue lisinopril Assessment & Plan (01/01/2024 12:18 PM CDT): This is a chronic condition which is improving and almost at goal . Goal is less than 7%. Personally reviewed most recent A1c - Lab Results Component Value Date HGBA1C 7.1 01/01/2024 Personally reviewed POC blood sugar- at goal of 80-180 Lab Results Component Value Date POCGLU 131 01/01/2024 Medication- continue Soliqua 50 units daily, glimeperide 4mg daily, metformin 1000mg twice daily. Monitor blood sugar 2 times a day. Encouraged annual eye exam. last dilated eye exam was [facility]. Monofilament foot exam completed. 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 Goal is <30 Continue lisinopril Assessment & Plan (12/07/2023 9:38 PM CDT): Stressed importance of continued A1c control to minimize the assisted effects of diabetes. Bring accuchecks to office when instructed to do so. Check A1c about every 3-6 months. Take medication as prescribed. Get annual eye exam. Encouraged ROSARIO/Statin if able to tolerate. Encouraged weight control and encouraged diabetic diet and exercise. Patient's A1c is beginning to improve. It was as high as 10.6. Sat down to 8.2. Still not at goal but still much better. Continue per Sakina Ramesh nurse practitioner. On insulin as well as metformin. He is out of his metformin so I will send a refill so he will not miss any doses Assessment & Plan (09/19/2023 10:48 AM CDT): This is a chronic condition which is improving but not at goal of less than 8%. Personally reviewed most recent A1c - Lab Results Component Value Date HGBA1C 8.2 09/19/2023 Personally reviewed POC blood sugar- at goal 80-180 Lab Results Component Value Date POCGLU 170 09/19/2023 Medication- continue Soliqua 50 units daily, glimeperide 4mg daily, metformin 1000mg twice daily. Monitor blood sugar 2 times a day. Encouraged annual eye exam. last dilated eye exam was [facility] in [place] Monofilament foot exam completed. loss of protective senses. Treated with Gabapentin- has ordered but has not filled due to copay. Personally reviewed CMP eGFR- 105 Kidney function- normal Urine microalbumin/creatinine ratio - not at goal <30 treated with lisinopril B/P today- at goal of <140/90. continue lisinopril Personally reviewed lipid panel. at Goal of less than 70. Continue atorvastatin. Assessment & Plan (2023 12:22 AM ALARM ADJUSTER): Stressed importance of continued A1c control to minimize the terminal system operator effects of diabetes. Bring accuchecks to office when instructed to do so. Check A1c about every 3-6 months. Take medication as prescribed. Get annual eye exam. Encouraged ROSARIO/Statin if able to tolerate. Encouraged weight control and encouraged diabetic diet and exercise. DM Follows with Sakina Ramesh NP Has been of his insulin for a week -- hasn't check his sugars since he has been off. I afraid to check my sugars. The insulin is avaiable as a partial order but hasn't wanted to fill it till it is all available. Stressed the importance of getting it ANDRÉS. A1c 05/31/2022 -- 10.6 08/29/2022 -- 8.9 11/2022 - 9.1 Lantus -- increased to 45units Metformin bid DM eye -- 06/2022 I do not have any samples of insulin to provide but strongly encouraged him to call Sakina Ramesh for assistance. Also stressed even if he can not fill full order at the pharmacy to get what he can so he can take his medication as instructed so that he can get control of his diabetes. Goal is closer to 7 and he has been at 9.1. Assessment & Plan (05/30/2023 2:25 PM ALARM ADJUSTER): This is a chronic condition which is out of control , worsening not at goal of less than 7%. Personally reviewed most recent A1c - Lab Results Component Value Date HGBA1C 10.7 05/30/2023 Personally reviewed POC blood sugar- not at goal 80-180 Lab Results Component Value Date POCGLU 198 05/30/2023 Medication- increase Lantus 52 units daily, restart glimeperide 4mg daily, continue metformin 1000mg twice daily. Was on Jardiance but could not afford copay - applied for [employer] patient assistance Was on soliqua but could not afford copay- applied for [employer] patient assistance for Soliqua Monitor blood sugar 3 times a day. Encouraged annual eye exam. Monofilament foot exam completed. protective senses intact Treated With gabapentin Has new diabetes shoes which he is really proud of care girlfriend Personally reviewed CMP eGFR- 105 Kidney function- normal Urine microalbumin/creatinine ratio - not at goal <30 treated with lisinopril B/P today- at goal of <140/90. continue lisinopril Personally reviewed lipid panel. at Goal of less than 70. Continue atorvastatin Assessment & Plan (12/02/2022 10:17 AM CDT): This is a chronic condition which is poorly controlled not at goal of less than 8%. Personally reviewed most recent A1c - Lab Results Component Value Date HGBA1C 9.1 12/02/2022 Personally reviewed POC blood sugar- not at goal 80-180 Lab Results Component Value Date POCGLU 155 12/02/2022 Medication- Continue tresiba u200 40 units daily, continue metformin 1000mg twice daily. Have tried to get him enrolled in [employer] patient assistance program but we have had complications receiving the right paperwork. Today I was able to access his security account and print off his most recent so security statement Monitor blood sugar 2x times a day. Encouraged annual eye exam. last dilated eye exam was [facility] in [place] Monofilament foot exam completed. loss of protective senses. Treated with Gabapentin but has not been taking due to increase in co-pay Personally reviewed CMP eGFR- 104 Kidney function- normal, abnormal Urine microalbumin/creatinine ratio - not at goal <30 treated with lisinopril B/P today-at goal of <140/90. continue lisinopril Personally reviewed lipid panel. at Goal of less than 70. Continue atorvastatin Assessment & Plan (11/04/2022 10:34 AM CDT): Stressed importance of continued A1c control to minimize the assisted effects of diabetes. Bring accuchecks to office when instructed to do so. Check A1c about every 3-6 months. Take medication as prescribed. Get annual eye exam. Encouraged ROSARIO/Statin if able to tolerate. Encouraged weight control and encouraged diabetic diet and exercise. Continue per Sakina Ramesh Assessment & Plan (08/29/2022 12:55 PM ALARM ADJUSTER): This is a chronic condition which is improving but not at goal of less than 7% due to not being able to afford his insulin co-pay. Insulin has been being provided per office samples so he has been getting it more consistently. He reports he has been out the last couple of days. Six samples of Tresiba were provided Personally reviewed A1c -8.9% Forms provided for [email or web address] patient assistance program . Personally reviewed blood sugar -359, not at goal 80-180 Medication- Continue Tresiba u200 46units daily. Continue metformin 1000mg twice daily. Monitor blood sugar 2 times a day. Encouraged annual eye exam. last dilated eye exam was [facility] in [place] Monofilament foot exam completed. loss of protective senses. Treated with Gabapentin has not been taking this either, the co-pay cost has risen Urine microalbumin/creatinine ratio -500, continue lisinopril , not at goal <30 Personally reviewed labs: CMP, GFR-104 Kidney function- normal B/P today-not at goal blood pressure is <140/90. Continue lisinopril Personally reviewed at goal of less than 70. continue atorvastatin . No history of macrovascular disease - CVA, MD. Assessment & Plan (05/31/2022 4:15 PM ALARM ADJUSTER): This is a chronic condition which is improving but not at goal due to not being able to afford his insulin co-pay Personally reviewed A1c -10.6 %, not at goal less than 7% Forms provided for [email or web address] patient assistance program. Personally reviewed blood sugar -295, not at goal 80-180 Medication- Continue Tresiba u200 46units daily. 5 samples of Toujeo max provided. Sampled of glucerna provided Continue metformin 1000mg twice daily. Monitor blood sugar 2 times a day. Encouraged annual eye exam. last dilated eye exam was [facility] in [place] Monofilament foot exam completed. loss of protective senses. Treated with Gabapentin has not been taking this either, the co-pay cost has risen Urine microalbumin/creatinine ratio -500, continue lisinopril , not at goal <30 Personally reviewed labs: CMP, GFR-96 Kidney function- normal B/P today- At goal blood pressure is <140/90. Continue lisinopril Personally reviewed at goal of less than 70. continue atorvastatin . No history of macrovascular disease - CVA, MD. Assessment & Plan (04/17/2022 11:05 AM CDT): This is a chronic condition which is improving but not at goal due to not being able to afford his insulin co-pay Personally reviewed A1c -11.2 %, not at goal less than 7% Personally reviewed blood sugar -203, not at goal 80-180 Medication- Continue Lantus 40 units daily- 4 samples of Tresiba u200 provided. Sampled of glucerna provided Continue metformin 1000mg twice daily. Monitor blood sugar 2 times a day. Encouraged annual eye exam. last dilated eye exam was [facility] in [place] Monofilament foot exam completed. loss of protective senses. Treated with Gabapentin has not been taking this either, the co-pay cost has risen Urine microalbumin/creatinine ratio -999, currently on lisinopril , not at goal <30 Personally reviewed labs: CMP, GFR-96 Kidney function- normal B/P today- 104/60 currently on lisinopril. At goal blood pressure is <140/90. Personally reviewed LDL -56 continue atorvastatin 40mg high intensity. at goal of less than 70 No history of macrovascular disease - CVA, MD. Assessment & Plan (03/24/2022 5:49 PM CDT): Stressed importance of continued A1c control to minimize the assisted effects of diabetes. Bring accuchecks to office when instructed to do so. Check A1c about every 3-6 months. Take medication as prescribed. Get annual eye exam. Encouraged ROSARIO/Statin if able to tolerate. Encouraged weight control and encouraged diabetic diet and exercise. He follows with Sakina Ramesh nurse practitioner in [place]. Currently states sugars have been a little high. Strongly encouraged him to get back in with her so he can have his tight control of his diabetes. Assessment & Plan (03/06/2022 9:42 AM CDT): This is a chronic condition which is worsening and not at goal due to not being able to afford his insulin co-pay Personally reviewed A1c -11.2 %, not at goal less than 7% Personally reviewed blood sugar -331, not at goal 80-180 Medication- stop Soliqua, Start Lantus 40 units daily- Hopefully this will decrease co-pay cost. For samples of Basaglar provided. Encouraged to check with insurance company for most economical option. Continue metformin 1000mg twice daily. Monitor blood sugar 2 times a day. Encouraged annual eye exam. last dilated eye exam was [facility] in [place] Monofilament foot exam completed. loss of protective senses. Treated with Gabapentin has not been taking this either due to the co-pay cost has risen Urine microalbumin/creatinine ratio -999, currently on lisinopril , not at goal <30 Personally reviewed labs: BUN- 11 , creatinine- 0.81 GFR-96 Kidney function- normal B/P today- 126/70 , currently on lisinopril. At goal blood pressure is <140/90 and as close to 120/80 as possible. Personally reviewed LDL - 91 continue atorvastatin 40mg high intensity. Repeat lipid panel. Not at goal of less than 70 No history of macrovascular disease - CVA, MD. Assessment & Plan (12/04/2021 10:49 AM CDT): This is a chronic condition which is not at goal. Personally reviewed A1c -9.6%, not at goal less than 7% Personally reviewed blood sugar -224, not at goal 80-180 Medication- Soliqua 36 units daily- did not increase as ordered due to co-pay cost. 6 samples provided. Will check with pharmacy for most economical option. Continue metformin 1000mg twice daily. Monitor blood sugar 2 times a day. Encouraged annual eye exam. last dilated eye exam was [facility] in [place] Monofilament foot exam completed. loss of protective senses. Treated with Gabapentin Urine microalbumin/creatinine ratio -999, currently on lisinopril , not at goal <30 Personally reviewed labs: BUN- 11 , creatinine- 0.81 GFR-96 Kidney function- normal B/P today- 126/70 , currently on lisinopril. At goal blood pressure is <140/90 and as close to 120/80 as possible. Personally reviewed LDL - 91 continue atorvastatin 40mg high intensity. Not at goal of less than 70 No history of macrovascular disease - CVA, MD. 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 Bring accuchecks to office when instructed to do so. Check A1c about every 3-6 months. Take medication as prescribed. Get annual eye exam. Encouraged ROSARIO/Statin if able to tolerate. Encouraged weight control and encouraged diabetic diet and exercise. Continue per Sakina Ramesh nurse practitioner in [place]. Unsure if the syncopal type event could have been a hypoglycemic event so will continue to work with her closely and work on tight control of his diabetes. Assessment & Plan (08/30/2021 1:26 PM ALARM ADJUSTER): This is a chronic condition which is not at goal. Personally reviewed A1c -9.5%, not at goal less than 7% Personally reviewed blood sugar -259 goal 80-180 Medication- Soliqua 30 units daily- increased to 34 units daily am- increase by 2 units every 4 days until at 50 units daily am. Continue metformin 1000mg twice daily. Covered on insurance plan. Monitor blood sugar 2 times a day. Encouraged annual eye exam. last dilated eye exam was [facility] in [place] Monofilament foot exam completed. loss of protective senses. Treated with Gabapentin Urine microalbumin/creatinine ratio -999, currently on lisinopril , not at goal <30 Personally reviewed labs: BUN- 11 , creatinine- 0.81 GFR-96 Kidney function- normal B/P today- 126/70 , currently on lisinopril. At goal blood pressure is <140/90 and as close to 120/80 as possible. Personally reviewed LDL - 91 changed to atorvastatin 40mg high intensity. Not at goal of less than 70 No history of macrovascular disease - CVA, MD. Assessment & Plan (06/01/2021 11:07 PM ALARM ADJUSTER): Stressed importance of continued A1c control to minimize the assisted effects of diabetes. Bring accuchecks to office when instructed to do so. Check A1c about every 3-6 months. Take medication as prescribed. Get annual eye exam. Encouraged ROSARIO/Statin if able to tolerate. Encouraged weight control and encouraged diabetic diet and exercise. Continue per Sakina Ramesh nurse practitioner Assessment & Plan (05/31/2021 2:36 PM ALARM ADJUSTER): This is a chronic condition which is not at goal. Personally reviewed A1c -8.6, not at goal less than 7% Personally reviewed blood sugar -275 goal 80-180 Medication- stop Lantus and glimeperide. Start Soliqua 30 units and will titrate up. Covered on insurance plan. Monitor blood sugar 2 times a day. Encouraged annual eye exam. last dilated eye exam was [facility] in [place] Monofilament foot exam completed. loss of protective senses. Treated with Gabapentin Urine microalbumin/creatinine ratio -1602 Currently on lisinopril , not at goal <30 Personally reviewed labs: BUN- 17 , creatinine- 0.71 GFR-101 Kidney function- normal B/P today- 138/78 , currently on lisinopril. At goal blood pressure is <140/90 and as close to 120/80 as possible. Personally reviewed LDL - 109 currently on pravastatin. Not at goal of less than 70 No history of macrovascular disease - CVA, MD. Assessment & Plan (10/18/2020 10:38 PM CDT): Stressed importance of continued A1c control to minimize the assisted effects of diabetes. Bring accuchecks to office when instructed to do so. Check A1c about every 3-6 months. Take medication as prescribed. Get annual eye exam. Encouraged ROSARIO/Statin if able to tolerate. Encouraged weight control and encouraged diabetic diet and exercise. Continue per endocrinology Mixed hyperlipidemia 08/19/2019 Assessment & Plan (05/14/2024 10:17 AM ALARM ADJUSTER): Stable continue Lipitor Assessment & Plan (05/04/2024 10:47 AM ALARM ADJUSTER): >>ASSESSMENT AND PLAN FOR MIXED HYPERLIPIDEMIA WRITTEN ON 04/23/2024 10:38 AM BY RADHA HOWARD MD Stable continue Lipitor Assessment & Plan (05/04/2024 10:45 AM ALARM ADJUSTER): This is a chronic condition which is not at goal . Goal is LDL less than 70 Continue atorvastatin Encouraged to eat healthy, include fresh fruits and vegetables daily and avoid eating fried foods more than once per week. Assessment & Plan (01/01/2024 12:18 PM CDT): This is a chronic condition which is not At goal . Goal is LDL less than 70 Continue atorvastatin Encouraged to eat healthy, include fresh fruits and vegetables daily and avoid eating fried foods more than once per week. Encouraged to take medications as prescribed. Assessment & Plan (12/07/2023 9:38 PM CDT): Encouraged patient to follow low fat/low chol diet like the Mediterranean diet. Increase good fats in the diet. Increase exercise. Monitor labs as needed. Continue statin Assessment & Plan (09/19/2023 10:41 AM CDT): This is a chronic condition which is at goal of LDL less than 70 Continue atorvastatin Encouraged to eat healthy, include fresh fruits and vegetables daily and avoid eating fried foods more than once per week. Encouraged to take medications as prescribed. Assessment & Plan (2023 12:22 AM ALARM ADJUSTER): Encouraged patient to follow low fat/low chol diet like the Mediterranean diet. Increase good fats in the diet. Increase exercise. Monitor labs as needed. Continue atorvastatin Assessment & Plan (05/30/2023 2:25 PM ALARM ADJUSTER): This is a chronic condition which is at goal of LDL less than 70 Continue atorvastatin Encouraged to eat healthy, include fresh fruits and vegetables daily and avoid eating fried foods more than once per week. Encouraged to take medications as prescribed. Assessment & Plan (12/02/2022 9:29 AM CDT): This is a chronic condition which is at goal of LDL less than 70 Continue atorvastatin Encouraged to eat healthy, include fresh fruits and vegetables daily and avoid eating fried foods more than once per week. Encouraged to take medications as prescribed. Assessment & Plan (05/04/2024 10:47 AM ALARM ADJUSTER): >>ASSESSMENT AND PLAN FOR HYPERLIPIDEMIA ASSOCIATED WITH TYPE 2 DIABETES MELLITUS (HCC) WRITTEN ON 11/04/2022 10:34 AM BY CASSIE RG, PA Encouraged patient to follow low fat/low chol diet like the Mediterranean diet. Increase good fats in the diet. Increase exercise. Monitor labs as needed. Continue atorvastatin >>ASSESSMENT AND PLAN FOR MIXED HYPERLIPIDEMIA WRITTEN ON 11/04/2022 10:42 AM BY CASSIE RG PA Encouraged patient to follow low fat/low chol diet like the Mediterranean diet. Increase good fats in the diet. Increase exercise. Monitor labs as needed. Continue atorvastatin Assessment & Plan (08/29/2022 12:54 PM ALARM ADJUSTER): This is a chronic condition which is at goal. Goal is less than 70. Personally reviewed lipid panel. continue atorvastatin Encouraged to eat healthy, include fresh fruits and vegetables daily and avoid eating fried foods more than once per week. Encouraged to take medications as prescribed. Assessment & Plan (05/31/2022 4:14 PM ALARM ADJUSTER): This is a chronic condition which is at goal. Goal is less than 70. Personally reviewed lipid panel. continue atorvastatin Encouraged to eat healthy, include fresh fruits and vegetables daily and avoid eating fried foods more than once per week. Encouraged to take medications as prescribed. Assessment & Plan (04/17/2022 11:06 AM CDT): This is a chronic condition which is at goal. Goal is less than 70. Personally reviewed lipid panel. LDL-56 continue atorvastatin Encouraged to eat healthy, include fresh fruits and vegetables daily and avoid eating fried foods more than once per week. Encouraged to take medications as prescribed. Assessment & Plan (03/24/2022 5:49 PM CDT): Encouraged patient to follow low fat/low chol diet like the Mediterranean diet. Increase good fats in the diet. Increase exercise. Monitor labs as needed. Continue pravastatin Assessment & Plan (03/06/2022 9:42 AM CDT): This is a chronic condition which is not at goal. Goal is less than 70. Lipid panel repeatedPersonally reviewed lipid panel. LDL- 91- continue atorvastatin Encouraged to eat healthy, include fresh fruits and vegetables daily and avoid eating fried foods more than once per week. Encouraged to take medications as prescribed. Assessment & Plan (12/04/2021 10:50 AM CDT): This is a chronic condition which is not at goal. Goal is less than 70. Personally reviewed lipid panel. LDL- 91- changed to atorvastatin 40mg (high intensity) Encouraged to eat healthy, include fresh fruits and vegetables daily and avoid eating fried foods more than once per week. Encouraged to take medications as prescribed. Assessment & Plan (08/30/2021 1:10 PM ALARM ADJUSTER): This is a chronic condition which is not at goal. Goal is less than 70. Personally reviewed lipid panel. LDL- 91- changed to atorvastatin 40mg (high intensity) Encouraged to eat healthy, include fresh fruits and vegetables daily and avoid eating fried foods more than once per week. Encouraged to take medications as prescribed. Assessment & Plan (06/01/2021 11:08 PM ALARM ADJUSTER): Encouraged patient to follow fat/low chol diet like the Mediterranean diet. Increase good fats in the diet. Increase exercise. Monitor labs as needed. Assessment & Plan (05/31/2021 2:29 PM ALARM ADJUSTER): This is a chronic condition which is not at goal. Goal is less than 70. Personally reviewed lipid panel. LDL- 109- continue pravastatin. Encouraged to eat healthy, include fresh fruits and vegetables daily and avoid eating fried foods more than once per week. Encouraged to take medications as prescribed. Assessment & Plan (10/18/2020 10:40 PM CDT): Encouraged patient to follow fat/low chol diet like the Mediterranean diet. Increase good fats in the diet. Increase exercise. Monitor labs as needed. Continue statin Assessment & Plan (04/19/2020 9:17 PM CDT): Encouraged patient to follow fat/low chol diet like the Mediterranean diet. Increase good fats in the diet. Increase exercise. Monitor labs as needed. Assessment & Plan (12/14/2019 10:23 PM CDT): Encouraged patient to continue low fat/low chol diet. Continue exercise. Increase good fats in the diet. Monitor labs as needed. D Continue statin Assessment & Plan (09/27/2019 10:38 AM CDT): Increase Pravastatin to 40mg daily. New rx sent Assessment & Plan (09/05/2019 4:35 PM CDT): Encouraged patient to continue low fat/low chol diet. Continue exercise. Increase good fats in the diet. Monitor labs as needed. Continue statin RLS (restless legs syndrome) 08/19/2019 Assessment & Plan (2023 12:23 AM ALARM ADJUSTER): Continue per Dr. Sher sleep Medicine. Patient admits he has not seen him in awhile. He stopped the Nuvigil as he could not sleep with it but I am not sure if he was taking correctly. He also does not have his GUEVARA supplies Strongly encouraged him to follow-up as untreated undertreated sleep apnea and other sleep issues can lead to long-term sequela Assessment & Plan (03/24/2022 5:49 PM CDT): Continue Requip Assessment & Plan (06/01/2021 11:08 PM ALARM ADJUSTER): Continue Requip Assessment & Plan (10/18/2020 10:39 PM CDT): Continue rope renal Assessment & Plan (12/14/2019 10:23 PM CDT): Stable with requip Assessment & Plan (09/27/2019 10:38 AM CDT): Continue Ropinrole Assessment & Plan (09/05/2019 4:49 PM CDT): Continue requip Cigar smoker 08/19/2019 Overview (08/19/2019): 20 years (3-7 per day) and cigarettes beforex 10 years at 2ppd. Assessment & Plan (12/07/2023 9:39 PM CDT): Encouraged complete smoking cessation. He smokes mostly cigars now Assessment & Plan (10/18/2020 10:41 PM CDT): Encouraged smoking cessation. Discussed 3 minutes. Reviewed options for assistance with cessation. Reviewed assisted sequela associated with smoking. Pt declines assistance at this time but may contact the office at anytime for further help as they desire. Assessment & Plan (12/14/2019 10:24 PM CDT): Encouraged cessation Assessment & Plan (09/27/2019 10:40 AM CDT): Encouraged smoking cessation. Discussed 3 minutes. Reviewed options for assistance with cessation. 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 Pt declines assistance at this time but may contact the office at anytime for further help as they desire. Assessment & Plan (09/05/2019 4:35 PM CDT): Encouraged smoking cessation. Discussed 3 minutes. Reviewed options for assistance with cessation. 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 Pt declines assistance at this time but may contact the office at anytime for further help as they desire. Seasonal allergies 08/19/2019 Assessment & Plan (10/18/2020 10:41 PM CDT): Continue current regimen Assessment & Plan (12/14/2019 10:24 PM CDT): contine current regimen Assessment & Plan (09/05/2019 4:36 PM CDT): Continue current regimen. Resolved Problems Problem Noted Date Diagnosed Date Resolved Date Encounter for screening colonoscopy 03/26/2024 04/05/2024 History of colonic polyps 03/26/2024 Class 1 obesity due to exces s calories with serious comorbidity and body mass index (BMI) of 30.0 to 30.9 in adult 05/27/2023 11/24/2023 Assessment & Plan (09/19/2023 10:44 AM CDT): This is a chronic condition which is worsening 10 lb weight gain since last office visit visit Encouraged healthy eating and activity as tolerate Exercise is limited due to his inability to ambulate well Assessment & Plan (05/27/2023 9:29 AM ALARM ADJUSTER): Weight/BMI is in healthy range. Continue healthy lifestyle to maintain. BMI 30.0-30.9,adult 11/04/2022 05/27/20 Assessment & Plan (11/04/2022 8:07 AM CDT): Discussed the patient's BMI. The BMI is above average. BMI management plan is completed. BMI Follow-up includes: nutrition counseling, exercise counseling and education provided. Obesity (BMI 30-39.9) 11/04/20222022 Assessment & Plan (11/04/2022 8:07 AM CDT): Discussed the patient's BMI. The BMI is above average. BMI management plan is completed. BMI Follow-up includes: nutrition counseling, exercise counseling and education provided. Fatigue 11/04/2022 11/24/2023 Assessment & Plan (11/04/2022 10:42 AM CDT): Probably multifactorial. Check labs and followup to re-evaluate Body mass index (BMI) 30.0-30.9, adult 11/04/2022 05/27/2023 Assessment & Plan (11/04/2022 10:43 AM CDT): Discussed the patient's BMI. The BMI is above average. BMI management plan is completed. BMI Follow-up includes: nutrition counseling, exercise counseling and education provided. Neck pain 06/18/2022 11/24/2023 Assessment & Plan (06/19/2022 12:01 AM ALARM ADJUSTER): This is a significant, separately identifiable problem that was evaluated and managed on the same day as the wellness exam Persistent neck pain with movement. Does have some numbness down the arm. Has EMG with Dr. Campbell in [place] and the results are still pending. He still has not done physical therapy. Recommend starting physical therapy. Will await the EMG report and if these are normal then may need an MRI of the neck C-spine to rule out radicular symptoms. Reviewed with patient that most insurances will require physical therapy before the MRI can be covered so recommend getting started with it to see if we can get him some improvement. He voices understanding. Order given to patient as he can schedule on his own Dysphagia 06/18/2022 11/24/2023 Assessment & Plan (06/19/2022 12:01 AM ALARM ADJUSTER): This is a significant, separately identifiable problem that was evaluated and managed on the same day as the wellness exam Patient is noting that food is getting stuck. He notes it especially with breads and meats. He has to drink more water to try to get it to go down. Recommend follow- up with GI. He is already seen Dr. Vee for colonoscopy. Recommend talking with him for further evaluation. Will place a referral just in case the GI prefers to have this available to do further evaluation Acute cough 06/18/2022 11/24/2023 Assessment & Plan (06/19/2022 12:02 AM ALARM ADJUSTER): Patient has had acute cough and cold symptoms for the last week. Will check flu and COVID test. These were negative in the office so encouraged to continue to treat symptoms with [id number] cough and cold medication. If symptoms worsen or do not resolve he is to follow up immediately. Cough 06/18/2022 11/24/2023 Assessment & Plan (06/19/2022 12:02 AM ALARM ADJUSTER): Patient has had acute cough and cold symptoms for the last week. Will check flu and COVID test. These were negative in the office so encouraged to continue to treat symptoms with [id number] cough and cold medication. If symptoms worsen or do not resolve he is to follow up immediately. Chest congestion 06/18/2022 11/24/2023 Assessment & Plan (06/19/2022 12:02 AM ALARM ADJUSTER): Patient has had acute cough and cold symptoms for the last week. Will check flu and COVID test. These were negative in the office so encouraged to continue to treat symptoms with [id number]-[id number] cough and cold medication. If symptoms worsen or do not resolve he is to follow up immediately. Body aches 06/18/2022 11/24/2023 Assessment & Plan (06/19/2022 12:02 AM ALARM ADJUSTER): Patient has had acute cough and cold symptoms for the last week. Will check flu and COVID test. These were negative in the office so encouraged to continue to treat symptoms with [id number] cough and cold medication. If symptoms worsen or do not resolve he is to follow up immediately. Medicare annual wellness visit, subsequent 06/18/2022 11/03/2022 Assessment & Plan (06/19/2022 12:02 AM ALARM ADJUSTER): Encouraged healthy lifestyle, good nutrition and exercise. Encouraged Calcium and Vitamin D and weight bearing exercise for bone health. Reviewed immunizations. Reviewed age appropirate screenings. Medicare Wellness Documentation is completed within the chart Annual physical exam 03/24/2022 024 Assessment & Plan (11/04/2022 10:35 AM CDT): Encouraged healthy lifestyle, good nutrition and exercise. Encouraged Calcium and Vitamin D and weight bearing exercise for bone health. Reviewed immunizations Reviewed age appropirate screenings. Assessment & Plan (03/24/2022 5:50 PM CDT): Encouraged healthy lifestyle, good nutrition and exercise. Encouraged Calcium and Vitamin D and weight bearing exercise for bone health. Reviewed immunizations Reviewed age appropirate screenings. Numbness and tingling of hand 03/21/2022 11/24/2023 Syncope 11/13/2021 11/24/2023 Assessment & Plan (11/13/2021 4:37 PM CDT): Patient with a syncopal event that occurred a few days ago. His eye is quite bruised so will get an x-ray of the orbits to rule out any type of fracture. He does not seem to have any neurologic signs that would necessitate imaging of the brain but of reviewed these with him and if they do occur he is to follow-up in the ER immediately. Reviewed with patient this could be a hypoglycemic event a cardiac related event verses vertigo versus other etiologies. Strongly encouraged him to eat and drink regularly. Monitor sugars closely. He is to follow-up with the his manager emergency department in [place] soon as possible to review his control. If this occurs again he is to go to the ER as may need a cardiac workup and he voices understanding and agreement with this plan. Swelling of right eye 11/13/20212023 Assessment & Plan (11/13/2021 4:38 PM CDT): Check or x-rays BMI 28.0-28.9,adult 11/01/2021 01/20/20 24 Assessment & Plan (12/07/2023 9:41 PM CDT): Weight/BMI is in healthy range. Continue healthy lifestyle to maintain. Assessment & Plan (11/01/2021 9:42 AM CDT): Weight/BMI is in healthy range. Continue healthy lifestyle to maintain. Obesity (BMI 30-39.9) 06/01/20212021 Assessment & Plan (06/01/2021 10:52 AM ALARM ADJUSTER): Obesity is unchanged. Discussed the patient's BMI. The BMI is above average. BMI management plan is completed. BMI Follow-up includes: nutrition counseling, exercise counseling and education provided. BMI 30.0-30.9,adult 06/01/2021 11/02/19 Assessment & Plan (06/01/2021 10:52 AM ALARM ADJUSTER): Obesity is unchanged. Discussed the patient's BMI. The BMI is above average. BMI management plan is completed. BMI Follow-up includes: nutrition counseling, exercise counseling and education provided. Medicare annual wellness visit, subsequent 06/01/2021 03/24/2022 Assessment & Plan (06/01/2021 11:12 PM ALARM ADJUSTER): Encouraged healthy lifestyle, good nutrition and exercise. Encouraged Calcium and Vitamin D and weight bearing exercise for bone health. Reviewed immunizations. Reviewed age appropirate screenings. Medicare Wellness Documentation is completed within the chart Decreased hearing of both ears 06/01/2021 11/24/2023 Assessment & Plan (11/13/2021 4:36 PM CDT): Patient has noted decreased hearing. There is open referral for Dr. Moran Assessment & Plan (06/01/2021 11:12 PM ALARM ADJUSTER): Patient has noticed decreased hearing. His ear canals are clear. Will refer to ENT/audiology for further evaluation Close exposure to COVID-19 virus 05/20/2021 06/01/2021 Assessment & Plan (05/20/2021 5:45 PM ALARM ADJUSTER): Patient to presume positive COVID until results are available and self isolate for 10 days from the onset of sxs. Check COVID test thru [facility] collection site in [place]. If positive, complete quarantine and consider monoclonal antibodies. If negative, treat sxs and observe. Currently no symptoms but if has sxs, may useTylenol, Cough/cold medication otc and add VitD 5,000IU daily and Zinc 50mg daily. Monitor sxs and call or go to the ER if has any of the following: --trouble breathing --persistent pain or pressure in the chest --new confusion --inability to wake or stay awake -- bluish lips or face If patient has been in close contact with anyone, they should be notified and instructed to quarantine per CDC guidelines for 14 days after last exposure to the positive COVID patient and monitor closely for symptoms of COVID. If they appear they should be tested. Close contact includes: --You were within 6 feet of someone who has COVID-19 for a total of 15 minutes or more --You provided care at home to someone who is sick with COVID-19 --You had direct physical contact with the person (hugged or kissed them) --You shared eating or drinking utensils --They sneezed, coughed, or somehow got respiratory droplets on you Additional Steps to avoid exposure/spread include: Avoid crowded places where close contact with others may occur, such as shopping centers, movie theaters, dormitories, or stadiums. Avoid transit where close contact with others may occur, such as planes, trains, and buses. Maintain a distance of approximately 6 feet from other people whenever possible (spacing out if you are in a line, leaving 2 seats in between others at a waiting room when possible). Wash your hands with soap and water often. If needed, use a hand drying machine tender that contains at least 60% alcohol. Clean and disinfect frequently touched surfaces such as tables, doorknobs, countertops, etc daily. Avoid touching your eyes, nose, and mouth when possible. Annual physical exam 10/18/2020 021 Assessment & Plan (10/18/2020 10:41 PM CDT): Encouraged healthy lifestyle, good nutrition and exercise. Encouraged Calcium and Vitamin D and weight bearing exercise for bone health. Reviewed immunizations Reviewed age appropirate screenings. Tobacco abuse 10/18/2020 11/04/2022 Assessment & Plan (06/01/2021 11:12 PM ALARM ADJUSTER): Encouraged smoking cessation. Discussed 3 minutes. Reviewed options for assistance with cessation. Reviewed assisted sequela associated with smoking. Pt declines assistance at this time but may contact the office at anytime for further help as they desire. Assessment & Plan (10/18/2020 10:41 PM CDT): Encouraged smoking cessation. Discussed 3 minutes. Reviewed options for assistance with cessation. Reviewed assisted sequela associated with smoking. Pt declines assistance at this time but may contact the office at anytime for further help as they desire. Encouraged to followup on LDCT Microalbuminuria 04/19/2020 04/19/2020 BMI 29.0-29.9,adult 12/14/2019 06/01/20 21 Assessment & Plan (10/18/2020 10:41 PM CDT): Weight/BMI is in healthy range. Continue healthy lifestyle to maintain. Assessment & Plan (12/14/2019 7:20 AM CDT): Obesity is unchanged. Discussed the patient's BMI. The BMI is above average. BMI management plan is completed. BMI Follow-up includes: nutrition counseling, exercise counseling and education provided. Obesity (BMI 30-39.9) 12/14/20192019 Assessment & Plan (12/14/2019 7:20 AM CDT): Obesity is unchanged. Discussed the patient's BMI. The BMI is above average. BMI management plan is completed. BMI Follow-up includes: nutrition counseling, exercise counseling and education provided. Medicare annual wellness visit, subsequent 12/14/2019 04/19/2020 Assessment & Plan (04/18/2020 10:31 PM CDT): Encouraged healthy lifestyle, good nutrition and exercise. Encouraged Calcium and Vitamin D and weight bearing exercise for bone health. Reviewed immunizations. Reviewed age appropirate screenings. Medicare Wellness Documentation is completed within the chart Type 2 diabetes mellitus wit h microalbuminuria, with long-term current use of insulin ([facility]) 09/27/2019 05/31/2021 Assessment & Plan (10/18/2020 10:39 PM CDT): Stressed importance of continued A1c control to minimize the assisted effects of diabetes. Bring accuchecks to office when instructed to do so. Check A1c about every 3-6 months. Take medication as prescribed. Get annual eye exam. Encouraged ROSARIO/Statin if able to tolerate. Encouraged weight control and encouraged diabetic diet and exercise. Continue per endocrinology Assessment & Plan (04/19/2020 9:18 PM CDT): Avoid nephrotoxic drugs including NSAIDs. Monitor labs. 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 Bring accuchecks to office when instructed to do so. Check A1c about every 3-6 months. Take medication as prescribed. Get annual eye exam. Encouraged ROSARIO/Statin if able to tolerate. Encouraged weight control and encouraged diabetic diet and exercise. Control tightly. If continues to elevate, may need nephrology referral. Assessment & Plan (12/14/2019 10:24 PM CDT): Improve DM control Continue to monitor Assessment & Plan (09/27/2019 10:41 AM CDT): Stressed importance of continued A1c control to minimize the assisted effects of diabetes. Bring accuchecks to office when instructed to do so. Check A1c about every 3-6 months. Take medication as prescribed. Get annual eye exam. Encouraged ROSARIO/Statin if able to tolerate. Encouraged weight control and encouraged diabetic diet and exercise. Encouraged tighter control. Send new glucometer to monitor readings and adjust insulin. On ROSARIO. Monitor. Erectile dysfunction due to diabetes mellitus 09/05/19 20 10/18/2020 Overview (09/05/2019): Penile prosthesis placed 2018 Assessment & Plan (09/05/2019 4:48 PM CDT): Follows with Urology Penile prosthesis placed 2018 Prostate cancer screening 09/05/2019 Assessment & Plan (09/05/2019 4:50 PM CDT): Check PSA Other fatigue 09/05/2019 09/27/2019 Assessment & Plan (09/05/2019 4:51 PM CDT): Probably multifactorial. Check labs and followup to re-evaluate Insulin use (long-term) in type 2 diabetes 08/19/2019 05/31/2021 Assessment & Plan (10/18/2020 10:40 PM CDT): Continue per endocrinology Assessment & Plan (12/14/2019 10:23 PM CDT): See DM Assessment & Plan (09/27/2019 10:39 AM CDT): Continue with insulin. Assessment & Plan (09/05/2019 4:35 PM CDT): Continue insulin use per Endocrine Annual physical exam 08/19/2019 020 Assessment & Plan (09/05/2019 4:35 PM CDT): Encouraged healthy lifestyle, good nutrition and exercise. Encouraged Calcium and Vitamin D and weight bearing exercise for bone health. Reviewed immunizations Reviewed age appropirate screenings. 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 Bring accuchecks to office when instructed to do so. Check A1c about every 3-6 months. Take medication as prescribed. Get annual eye exam. Encouraged ROSARIO/Statin if able to tolerate. Encouraged weight control and encouraged diabetic diet and exercise. Continue per endocrinology Assessment & Plan (12/14/2019 10:22 PM CDT): Stressed importance of continued A1c control to minimize the assisted effects of diabetes. Bring accuchecks to office when instructed to do so. Check A1c about every 3-6 months. Take medication as prescribed. Get annual eye exam. Encouraged ROSARIO/Statin if able to tolerate. Encouraged weight control and encouraged diabetic diet and exercise. Continue with the metformin, glimepiride, Lantus and gabapentin and requip. Assessment & Plan (09/27/2019 10:34 AM CDT): Continue with Gabapentin. Has been off the Hydrocodone and hasn't noted much change in the pain. Admits to continued sleepiness during the day. Could be GUEVARA vs gabapentin. Will start CPAP. Could try to hold am Gabapentin to see if fatigue improves but still has control of the neuropathy pain. Assessment & Plan (09/05/2019 4:33 PM CDT): This is a significant, separately identifiable problem that was evaluated and managed on the same day as the wellness exam Not well controlled. 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 Bring accuchecks to office when instructed to do so. Check A1c about every 3-6 months. Take medication as prescribed. Get annual eye exam. Encouraged ROSARIO/Statin if able to tolerate. Encouraged weight control and encouraged diabetic diet and exercise. 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 He is on Gabapentin 60mg bid for neuropathy. Encounters Date Type Department Care Team Description 12/16/2024 Orders Only [facility] Health Information Management [address] [place] [address] Scanning, Provider 12/06/2024 Telephone [facility] Accountable Care Organization [address] [place] [address] Lizabeth Loza MA Unsuccessful Phone Call 1 ([employer] DM eye exam ) 12/06/2024 Telephone [facility] [address] [place] [phone] To Dominguez MD 12/06/2024 Telephone [facility] [address] [place] [phone] To Dominguez MD 11/16/2024 Hospital Encounter [facility] [address] [place] [address] Margi Vee MD 11/03/2024 Telephone [facility] Gastroenterology at [address] [place] [address] Miley Pereyra Colonoscopy Cancel 10/25/2024 Telephone [facility] Family Medicine [address] [place] [address] Rhianna Harrington Chart Review ([employer] med adherence) 10/07/2024 Telephone [facility] Diabetes [facility] [place] [address] [place] [address] [address] [place] [address] Sakina Ramesh, VASHTI from Last 3 Months Immunizations Immunization Administration Dates Next Due Influenza, Quadrivalent, Spl it, Intramuscular 04/04/2016,04/17/2015 Influenza, Quadrivalent, Spl it, Preservative Free, Intramuscular 04/01/2023,04/03/2022,03/04/2020,03/10 Influenza, Trivalent, IM (MDV) 07/19/2014 Influenza, Trivalent, Preser vative Free, Intramuscular 03/25/2024 Influenza, Unspecified 07/24/2022(Deferr ed: Patient Refused),04/20/2021,02/29/2020, 019 Pneumococcal Conjugate, Unspecified 05/05/2019 Surgical History Surgery Date Site/Laterality Comments PARTIAL NEPHRECTOMY Left BACK SURGERY KNEE ARTHROSCOPY Bilateral SHOULDER OPEN ROTATOR CUFF REPAIR Bilater al KNEE ARTHROSCOPY W/ LATERAL RELEASE 12/05/1996 ABDOMINAL SURGERY 12/05/1972 CHOLECYSTECTOMY COLONOSCOPY 09/21/2017 - 10/20/2017 COLONOSCOPY 11/26/2022 Medical History Medical History Date Comments Diabetes mellitus (HCC) Hypertension Hyperlipidemia Arthritis Neuropathy Cancer (HCC) Insulin use (long-term) in type 2 diabetes (HCC) 08/19/2019 Type 2 diabetes mellitus wit h microalbuminuria, with long-term current use of insulin (HCC) 09/27/2019 HL (hearing loss) Tinnitus BMI 27.0-27.9,adult 03/24/2022 Neuromuscular disorder (HCC) 10/10/18 Sleep apnea 09/04/18 Poor circulation Family History Medical History Relation Name Comments Hypertension Mother Jose Gates Liver cancer Mother Jose Gates Arthritis Other Cancer Other Diabetes Other Stroke Other Relation Name Status Comments Mother Jose Gates Other Social History Tobacco Use Types Packs/Day Years Used Date Smoking Tobacco: Every Day Cigars Smokeless Tobacco: Never Tobacco Cessation:Ready to Q uit: Not Asked; Counseling Given: Not Answered Comments:4 cigars a day Alcohol Use Standard Drinks/Week Comments Never 0 (1 standard drink = 0.6 oz pur e alcohol) AUDIT-C Answer Date Recorded Q1: How often do you have a drink containing alcohol? Never 11/15/2022 Q2: How many drinks containi ng alcohol do you have on a typical day when you are drinking? Patient does not drink Q3: How often do you have si x or more drinks on one occasion? Never 11/15/2022 PHQ-2 Answer Date Recorded PHQ-2 Total Score (If total score is 3 or more points, staff should administer the PHQ-9) 0 03/25/2024 Personal Safety Answer Date Recorded Have you ever been in or are you currently in a harmful physical or emotional relationship or is someone making you feel afraid or unsafe? Denies 02/09/2024 Sex and Gender Information Value Date Recorded Sex Assigned at Not on file Legal Sex Male 1:19 PM ALARM ADJUSTER Gender Identity Not on file Sexual Orientation Not on file Occupation Industry Job Start Date Job End Date Disabled Not on file Not on file Not on file Obstetrics History Last Filed Vital Signs Vital Sign Reading Time Taken Comments Blood Pressure 150/95 06/10/2024 10:27 AM ALARM ADJUSTER Pulse 94 06/10/2024 10:27 AM ALARM ADJUSTER Temperature 36.9 C (98.5 F) 03/25/2024 11:00 AM CDT Respiratory Rate 18 02/09/2024 9:00 PM CDT Oxygen Saturation 100% 06/10/2024 10:27 AM ALARM ADJUSTER Inhaled Oxygen Concentration - - Weight 75.3 kg (166 lb) 05/12/2024 10:11 AM ALARM ADJUSTER Height 170.2 cm (5' 7.01) 06/10/2024 10:[address] Body Mass Index 26 05/12/2024 10:11 AM ALARM ADJUSTER Plan of Treatment Health Maintenance Due Date Last Done Comments DTaP/Tdap/Td Vaccine (1 - Tdap) 1970 Hepatitis B Screening 1977 Zoster Vaccine (1 of 2) 2009 Colon Cancer Screening-Colonoscopy 10/10/2020 10/10/2017 Pneumococcal vaccine 65+ (3 of 3 - PCV20 or PCV21) 05/05/2024 05/05/2019, 03/25/2019 Abdominal Aortic Aneurysm (A AA) Screen 2024 06/19/2022, 04/23/2021, 07/24/2017, Additional history exists Albumin Creatinine Ratio, Urine 09/18/2024 09/19/2023, 12/02/2022, 03/06/2022, Additional history exists Lipid Panel 09/18/2024 09/19/2023, 11/21, 03/06/2022, Additional history exists Well Visit 65+ 11/23/2024 11/24/2023, 10/2022, 11/04/2022, Additional history exists Prostate Cancer Screening-PSA 12/02/2024, 08/24/2019, 07/24/2017, Additional history exists Lung Cancer Screening 12/21/2024 12/22/2023 , 11/19/2022, 11/15/2021, Additional history exists eGFR 02/08/2025 02/09/2024, 08/22, 12/02/2022, Additional history exists Hemoglobin A1C 02/16/2025 08/19/2024, 04/23, 01/01/2024, Additional history exists Influenza Vaccine (#1) 2025 , 04/01/2023, 04/03/2022, Additional history exists Dilated Eye Exam 03/04/2025 03/04/2024, , 07/18/2022, Additional history exists Depression Screening 03/25/2025 03/25/2024, 01/20/2024, 11/24/2023, Additional history exists Fall Risk Assessment 03/25/2025 03/25/2024, 01/20/2024, 11/24/2023, Additional history exists Foot Exam 05/04/2025 05/04/2024, 12/21, 09/19/2023, Additional history exists Colon Cancer Screening-CT Colonography Discontinued 10/10/2017 Colon Cancer Screening-DNA Stool Discontinued 10/11/19 18 Colon Cancer Screening-FIT Discontinued 10/10/2017 Colon Cancer Screening-Sigmoidoscopy Discontinued 10/10/2017 Hepatitis C Screening Completed 04/08/2024 Procedures Procedure Name Priority Date/Time Associated Diagnosis Comments SCAN - LABS 12/16/2024 POCT HEMOGLOBIN A1C Routine 05/04/2024 10:28 AM ALARM ADJUSTER Type 2 diabetes mellitus with hypoglycemia without coma, with long-term current use of insulin (HCC) HEPATITIS PANEL, ACUTE Routine 04/08/2024 10:12 AM CDT Neuropathy DIABETES EYE EXAM Routine 03/04/2024 3:17 PM CDT EGFR STAT 02/09/2024 4:[address] LUNG CANCER SCREENING Schedule Routine, Read Routine (OP Routine) 12/22/2023 3:43 PM CDT Personal history of nicotine dependence LIPID PANEL Routine 09/19/2023 10:24 AM CDT Type 2 diabetes mellitus with hyperglycemia, with long-term current use of insulin (HCC) ALBUMIN CREATININE RATIO, URINE Routine 09/19/2023 10:24 AM CDT Type 2 diabetes mellitus with hyperglycemia, with long-term current use of insulin (HCC) PSA SCREEN Routine 12/02/2022 9:00 AM CDT Prostate cancer screening COLONOSCOPY Routine 10/10/2017 CT ABDOMEN PELVIS W WO CONTRAST Routine 07/24/2017 6:00 PM ALARM ADJUSTER from Last 3 Months or Most Recently Relevant to Health Maintenance Results * SCAN - LABS (12/16/2024) us Provider Scanning Final Result * POCT hemoglobin A1c (05/04/2024 10:28 AM ALARM ADJUSTER) Hemoglobin A1C, POC 5.5 4.0 - 5.6 % Blood 05/04/2024 10:2 8 AM ALARM ADJUSTER us Sakina Ramesh NP POINT OF CARE TEST ORDERABLES F inal Result * Hepatitis panel, acute Blood (04/08/2024 10:12 AM CDT) Hep A IgM Nonreactive Nonreactive Comment: Interpretive Data: If Hep A IgM Ab is reported as Equivocal, a new sample should be drawn in two weeks for testing. Current interpretive data was last revised on 19. Testing performed by: [address] [address] Hep B core IgM Nonreactive Nonreactive Naomy MEMBRENO ([place]) Comment: Interpretive Data If HepB Core IgM Ab is reported as Equivocal, a new sample should be drawn in two weeks for testing. Current interpretive data was last revised on 19. Testing performed by: [facility], [address] [place] [address]., [id number] Hep C Ab Nonreactive Nonreactive KATHY MEMBRENO ([place]) Comment: Interpretive Data Nonreactive: Antibodies to HCV not detected. Does NOT exclude the possibility of recent exposure to HCV. Equivocal: Equivocal for HCV antibodies. Supplemental molecular testing will be automatically performed to determine infection status in accordance with current CDC screening recommendations. Reactive: Positive for HCV antibodies. This may represent current or past HCV infection. Supplemental molecular testing will be automatically performed to determine current infection status in accordance with current CDC screening recommendations. Interpretive data was last revised on 2019. Testing performed by: [facility], [address] [place] [address]., [id number] HepBsAg Nonreactive Nonreactive KATHY MEMBRENO ([place]) Comment:Testing performed by : [address] [address] Blood 04/08/2024 10:1 2 AM CDT 04/08/2024 7:02 PM CDT us Cassie ROSALES LAB MICROBIOLOGY - GENERAL ORDERABLES Final Result KATHY MEMBRENO ([place]) 1 [facility] Department [place] [address] * (ABNORMAL) DIABETES EYE EXAM (03/04/2024 3:17 PM CDT) SCRIBED DIABETIC DILATED EYE EXAM Abnormal us Historical Provider HEALTH MAINTENANCE Edited Result - Final * eGFR (02/09/2024 4:13 PM CDT) eGFR >90 >=60 mL/min/1. 73 m2 Comment: Interpretive Data Reference Interval Normal >/= 90 mL/min/1.73m2 Mildly decreased* 60 - 89 mL/min/1.73m2 Mildly to moderately decreased 45 - 59 mL/min/1.73m2 Moderately to severely decreased 30 - 44 mL/min/1.73m2 Severely decreased 15 - 29 mL/min/1.73m2 Kidney Failure < 15 mL/min/1.73m2 *Relative to young adult level Estimated glomerular filtration rate is determined by the 2020 CKD-EPI equation recommended by the National Kidney Foundation (A Unifying Approach to GFR Estimation: Recommendations of the NKF-ASK Task Force on Reassessing the Inclusion of Race in Diagnosing Kidney Disease, JASN 2020). The CKD-EPI equation should not be used for patients with unstable renal function and has not been validated in children and those over 70. Current interpretive data was last reviewed 2021. Blood 02/09/2024 4:13 PM CDT 02/09/2024 5:00 PM CDT us Cornel Garcia MD LAB BLOOD ORDERABLE S Final Result KATHY [address] [facility] Department [place] [address] * CT Lung Cancer Screening (12/22/2023 3:43 PM CDT) Anatomical Region Laterality Modality Chest N/A Computed Tomogra phy us Cassie ROSALES IMG CT PROCEDURES Final Re sult * (ABNORMAL) Albumin Creatinine Ratio, Urine (09/19/2023 10:24 AM CDT) Albumin Ur 2,321.8 mg/L Comment: Interpretive Data No reference range established. Current interpretive data was last revised 2018. Testing performed by: [facility], [address] [place] [address]., [address] Creatinine Ur 301.4 mg/dL KATHY MEMBRENO ([place]) Comment: Interpretive Data No reference range established. Current interpretive data was last revised 2018. Testing performed by: [facility], [address] [place] [address]., [address] Albumin Creatinine Ratio, Ur 770(H) 1 - 29 mg/g KATHY MEMBRENO ([place]) Comment:Testing performed by : [facility], [address] [place] [address]., [id number] Urine 09/19/2023 10:2 4 AM CDT 09/19/2023 4:00 PM CDT us Sakina Ramesh CLINICAL PROJECT LEADER LAB URINE ORDERABLES Final Resu lt KATHY MEMBRENO ([place]) 1 [facility] Department of Laboratories [place], [place] [id number] * (ABNORMAL) Lipid panel (09/19/2023 10:24 AM CDT) Cholesterol 193 30 - 199 mg/dL Comment: Interpretive Data Ages < or = 19 years Acceptable: <170 mg/dL Borderline high: 170-199 mg/dL High: >or= 200 mg/dL Ages > or = 20 years Desirable: <200 mg/dL Borderline high: 200-239 mg/dL High: >or= 240 mg/dL Literature References: 1. Expert Panel on Integrated Guidelines for Cardiovascular Health and Risk Reduction in Children and Adolescents. Pediatrics 2011;128:S213 2. NCEP Expert Panel. Circulation 2004;110:227 Current Interpretive Data was last revised on 2018. Triglycerides 192(H) <=149 mg/dL KATHY MEMBRENO ([place]) Comment: Interpretive Data Ages < or = 9 years Acceptable: <75 mg/dL Borderline high: 75-99 mg/dL High: >or= 100 mg/dL Ages 10 to 20 years Acceptable: <90 mg/dL Borderline high: 90-129 mg/dL High: >or= 130 mg/dL Ages > or = 20 years Desirable: <150 mg/dL Borderline high: 150-199 mg/dL High: 200-499 mg/dL Very high: >or= 499 mg/dL Literature References: 1. Expert Panel on Integrated Guidelines for Cardiovascular Health and Risk Reduction in Children and Adolescents. Pediatrics 2011;128:S213 2. NCEP Expert Panel. Circulation 2004;110:227 Current Interpretive Data was last revised on 2018. HDL 54 >=40 mg/dL KATHY MEMBRENO ([place]) Comment: Interpretive Data Ages < or = 19 years Acceptable: >45 mg/dL Borderline low: 40-45 mg/dL Low: <40 mg/dL Ages > or = 20 years Desirable: >or= 60 mg/dL Low: <40 mg/dL Literature References: 1. Expert Panel on Integrated Guidelines for Cardiovascular Health and Risk Reduction in Children and Adolescents. Pediatrics 2011;128:S213 2. NCEP Expert Panel. Circulation 2004;110:227 Current Interpretive Data was last revised on 2018. LDL, calculated 101 <=129 mg/dL KATHY MEMBRENO ([place]) Comment: Interpretive Data Ages < or = 19 years Acceptable: <110 mg/dL Borderline high: 110-129 mg/dL High: >or= 130 mg/dL Ages > or = 20 years Optimal: <100 mg/dL Near optimal: 100-129 mg/dL Borderline high: 130-159 mg/dL High: >160 mg/dL Literature References: 1. Expert Panel on Integrated Guidelines for Cardiovascular Health and Risk Reduction in Children and Adolescents. Pediatrics 2011;128:S213 2. NCEP Expert Panel. Circulation 2004;110:227 Current Interpretive Data was last revised on 2018. Non-HDL Cholesterol 139 mg/dL KATHY MEMBRENO ([place]) Comment: Interpretive Data Ages < or = 19 years Acceptable: <120 mg/dL Borderline high: 120-144 mg/dL High: >145 mg/dL Ages > or = 20 years When triglycerides are >200 mg/dL, Non-HDL cholesterol is a secondary target of therapy with treatment goals that are 30 mg/dL greater than the LDL cholesterol target. Literature References: 1. Expert Panel on Integrated Guidelines for Cardiovascular Health and Risk Reduction in Children and Adolescents. Pediatrics 2011;128:S213 2. NCEP Expert Panel. Circulation 2004;110:227 Current Interpretive Data was last revised on 2018. Chol/HDL ratio 4 NEL MEMBRENO ([place]) Blood 09/19/2023 10:2 4 AM CDT 09/19/2023 1:29 PM CDT Narrative KATHY TEMI ([place]) - 09/19/2023 2:01 PM CDT These lab test should be done fasting. This means do not eat or drink for at least 12 hours prior to getting your blood drawn. Sakina Ramesh CLINICAL PROJECT LEADER LAB BLOOD ORDERABLES Final Resu lt Performing Organization Address City/[facility]/ZIP Co de Phone Number KATHY MEMBRENO ([place]) 1 [facility] [place] [place] [address] * PSA screen (12/02/2022 9:00 AM CDT) PSA-Total 1.09 <=5.40 ng/mL KATHY TEMI ([place]) Comment: Interpretive Data AGE SEX REFERENCE INTERVAL 0 minutes-150 years Female None 0 minutes-49 years Male None 50-59 years Male 0-3.90 60-69 years Male 0-5.40 70-79 years Male 0-6.20 80-150 years Male 0-6.20 The Lisa PSA Total assay procedure was used. Results from different manufacturers or methods may not be comparable. Serial testing should be performed using the same method. Current interpretive data last revised 21. Blood 12/02/2022 9:00 AM CDT 12/02/2022 1:16 PM CDT us Cassie ROSALES LAB BLOOD ORDERABLES Final Result KATHY MEMBRENO ([place]) 1 [facility] [place] [place] [address] * HM COLONOSCOPY (10/10/2017) HM Colonoscopy Abnormal Comment:rectal polyp us Historical Provider HEALTH MAINTENANCE Final Result * CT Abdomen Pelvis W WO Contrast (07/24/2017 6:00 PM ALARM ADJUSTER) Anatomical Region Laterality Modality Body N/A Computed Tomogra phy 07/24/2017 6:00 PM ALARM ADJUSTER Narrative 07/24/2017 6:33 PM ALARM ADJUSTER JOSE CARVALHO M.D. FINAL REPORT ACC# Date Time Exam [id number] Jul 24, 2017 12:00:[id number] Abd & Pelvis wwo cont EXAMINATION: Computed tomography of the abdomen and pelvis without and with intravenous contrast HISTORY: 57-year-old man with renal mass. TECHNIQUE: Transaxial computed tomographic images of the abdomen and pelvis were obtained without and with intravenous contrast according to the renal protocol after the uneventful administration of 125 mL Opti-Ray 350 intravenous contrast. COMPARISON: No prior study is available for comparison. FINDINGS: Right kidney: A 1.4 cm exophytic cyst is present in the right kidney interpolar region posteriorly. A 6 mm hypoattenuating lesion in the right kidney inferior pole is too small to accurately characterize. There is no hydronephrosis. No calculi are seen in the right kidney. Left kidney: A 1.9 x 2.0 cm partially exophytic enhancing mass is present in the left kidney inferior pole (image 240 series 4). A 9 mm cyst is present in the left kidney inferior pole. A 9 mm simple cyst is present in the left kidney superior pole. There is no nephrolithiasis in the left kidney. No hydronephrosis is seen. Both ureters are nondilated. The urinary bladder is distended with fluid. The prostate gland is enlarged measuring 5.5 cm in transverse dimension, and indents the base of the urinary bladder. Other findings: The liver enhances homogeneously without focal intrahepatic lesions. There is no intrahepatic or extrahepatic bile duct dilatation. The gallbladder is surgically absent. A calcified granuloma is present in the spleen. Both adrenal glands and pancreas are normal. The distal esophagus is normal. The stomach is distended with ingested material. The small and large bowel loops are normal without evidence of wall thickening or obstruction. Sigmoid diverticulosis is seen without evidence of acute diverticulitis. No ascites is seen. There is no free intraperitoneal air. The abdominal aorta is atherosclerotic and normal in course and caliber. No abdominal or pelvic lymphadenopathy is seen. Bone windows show no suspicious lytic or blastic lesions. Degenerative changes are seen in the visible spine and both hip joints. IMPRESSION: 1. Partially exophytic enhancing mass in the left kidney inferior pole concerning for renal cell carcinoma likely clear cell type. 2. Prostatomegaly. Electronically signed by: Jose Carvalho M.D. Requested By: IRWIN BOWMAN M.D. Dictated By: JOSE CARVALHO M.D. on Jul 24 2017 12:31P This document has been electronically signed by: JOSE CARVALHO M.D. on Jul 24 2017 12:31P [id number] CARVALHO M.D. FINAL REPORT Attending: BONNIE REGAN Requesting: IRWIN BOWMAN Requesting Fax: Attending Fax: Attending ID: [id number] Requesting ID: [id number] Report To 1 ID: [id number] Report To 1 Name: , Report To 1 FAX: NextGen Order #: Procedure Note Miscellaneous, Not In File - 07/24/2017 JOSE CARVALHO M.D. FINAL REPORT ACC# Date Time Exam [id number] Jul 24, 2017 12:00:[id number] Abd & Pelvis wwo cont EXAMINATION: Computed tomography of the abdomen and pelvis without and with intravenous contrast HISTORY: 57-year-old man with renal mass. TECHNIQUE: Transaxial computed tomographic images of the abdomen and pelvis were obtained without and with intravenous contrast according to the renal protocol after the uneventful administration of 125 mL Opti-Ray 350 intravenous contrast. COMPARISON: No prior study is available for comparison. FINDINGS: Right kidney: A 1.4 cm exophytic cyst is present in the right kidney interpolar region posteriorly. A 6 mm hypoattenuating lesion in the right kidney inferior pole is too small to accurately characterize. There is no hydronephrosis. No calculi are seen in the right kidney. Left kidney: A 1.9 x 2.0 cm partially exophytic enhancing mass is present in the left kidney inferior pole (image 240 series 4). A 9 mm cyst is present in the left kidney inferior pole. A 9 mm simple cyst is present in the left kidney superior pole. There is no nephrolithiasis in the left kidney. No hydronephrosis is seen. Both ureters are nondilated. The urinary bladder is distended with fluid. The prostate gland is enlarged measuring 5.5 cm in transverse dimension, and indents the base of the urinary bladder. Other findings: The liver enhances homogeneously without focal intrahepatic lesions. There is no intrahepatic or extrahepatic bile duct dilatation. The gallbladder is surgically absent. A calcified granuloma is present in the spleen. Both adrenal glands and pancreas are normal. The distal esophagus is normal. The stomach is distended with ingested material. The small and large bowel loops are normal without evidence of wall thickening or obstruction. Sigmoid diverticulosis is seen without evidence of acute diverticulitis. No ascites is seen. There is no free intraperitoneal air. The abdominal aorta is atherosclerotic and normal in course and caliber. No abdominal or pelvic lymphadenopathy is seen. Bone windows show no suspicious lytic or blastic lesions. Degenerative changes are seen in the visible spine and both hip joints. IMPRESSION: 1. Partially exophytic enhancing mass in the left kidney inferior pole concerning for renal cell carcinoma likely clear cell type. 2. Prostatomegaly. Electronically signed by: Jose Carvalho M.D. Requested By: IRWIN BOWMAN M.D. Dictated By: JOSE CARVALHO M.D. on Jul 24 2017 12:31P This document has been electronically signed by: JOSE CARVALHO M.D. on Jul 24 2017 12:31P [id number] CARVALHO M.D. FINAL REPORT Attending: BONNIE REGAN Requesting: IRWIN BOWMAN Requesting Fax: Attending Fax: Attending ID: [id number] Requesting ID: [id number] Report To 1 ID: [id number] Report To 1 Name: , Report To 1 FAX: NextGen Order #: Irwin Bowman MD IMG CT PROCEDURES Final Re sult from Last 3 Months or Most Recently Relevant to Health Maintenance Insurance [facility] MDCR HMO REF [employer] MEDICARE [facility] MEDICARE Address: [address] [place] [address] MEDICARE Advance Directives For more information, please contact: [phone] * Full Code (Latest Code Status on File) Date Activated Date Inactivated Comments 11/26/2022 10:28 AM 12/02/2022 1:56 PM * Full Code Date Activated Date Inactivated Comments 11/26/2022 10:28 AM 11/26/2022 10:28 AM Care Teams Pin Feather Machine Operator Relationship Specialty Start Date End Date Cassie Rg PA [address] [place] [address] PCP - General Internal Medicine 08/17/21 Essence Mccloud MD [address] [place] [address] Consulting Physician Neurology 11/04/22 To Dominguez MD [address] [place] [address] [address] [place] [address] Consulting Physician Neurology 11/24/23
--- OUTSIDE RECORDS SUMMARY | 2024-12-24 00:03 | XMS_ITS | Encounter Summary ---
Author Organization [facility] Healthcare Address [address] [place] [address] Care Team Providers Care Script Manager Name Role Phone Sushma Rg Primary Care Provider [phone] Essence Mccloud MD Unavailable To Dominguez MD Unavailable [phone] Encounter Details Date Type Department Care Team (Late st Contact Info) Description 07/23/2024 Orders Only [facility] Health Information Management [address] [place] [id number] Scanning, Provider Social History Tobacco Use Types Packs/Day Years Used Date Smoking Tobacco: Every Day Cigars Smokeless Tobacco: Never Comments:4 cigars a day Alcohol Use Standard [...] on file Legal Sex Male 1:19 PM [employer]LEX[employer]ANNY Gender Identity Not on file Sexual Orientation Not on file Occupation Industry Job Start Date Job End Date Disabled Not on file Not on file Not on file documented as of this encounter Plan of Treatment Not on file documented as of this encounter Procedures Procedure Name Priority Date/Time Associated Diagnosis Comments SCAN - RADIOLOGY/IMAGING 07/23/2024 documented in this encounter Results * SCAN - RADIOLOGY/IMAGING (07/23/2024) Anatomical Region Laterality Modality Other us Provider Scanning Final Result documented in this encounter Visit Diagnoses Not on filedocumented in this encounter Care Teams Script Manager Relationship Specialty Start Date End Date Sushma Rg PA [address] [facility] [address] [place] [address] PCP - General Internal Medicine 08/17/21 Essence Mccloud MD [address] [facility] [address] [place] [address] Consulting Physician Neurology 11/04/22 To Dominguez MD [address] [facility] [address] [place] [address] Consulting Physician Neurology 11/24/23 documented as of this encounter
--- OUTSIDE RECORDS SUMMARY | 2024-12-24 00:03 | XMS_ITS | Referral Summary ---
Author Organization [facility] [address] Address [address] [place] [address] Care Team Providers Care Scroll Machine Operator Name Role Phone Cassie Rg Primary Care Provider + [phone] Essence Mccloud MD Unavailable To Dominguez MD Unavailable [phone] Encounters Date Type Department Care Team Description 12/16/[address] [facility] Health Information Management [address] [place] [address] Scanning, Provider 12/06/2024 Telephone [facility] Accountable Care Organization [address] [place] [address] Lizabeth Loza MA Unsuccessful Phone Call 1 ([employer] DM eye exam ) 12/06/[address] [facility] [address] [place] [phone] To Dominguez MD 12/06/[address] [facility] [address] [place] [phone] To Dominguez MD 11/16/2024 Hospital Encounter [facility] [address] [place] [address] Margi Vee MD 11/03/2024 Telephone [facility] Gastroenterology at [address] [place] [address] Miley Pereyra Colonoscopy Cancel 10/25/2024 Telephone [facility] Family Medicine [address] [place] [address] Rhianna Harrington Chart Review ([employer] med adherence) 10/07/2024 Telephone [facility] Diabetes Endocrine [facility] at [place] [address] [place] [address] Sakina Ramesh, VASHTI from Last 3 Months Allergies Active Allergy Reactions Criticality Noted Date Comments Hema Wright 12/01/2017 Medications aspirin-calcium carbonate 81 mg-300 mg [...] 02/02/2024 Assessment & Plan (05/14/2024 10:17 AM ADULT PROBATION OFFICER): 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 Bueno, in [place] and has had the hand numbness worked [...] time Assessment & Plan (2023 12:24 AM ADULT PROBATION OFFICER): Encouraged healthy lifestyle, good nutrition and exercise. [...] provided Assessment & Plan (2023 12:24 AM ADULT PROBATION OFFICER): Patient notes lower extremity weakness. Had back [...] 11/16/19 Assessment & Plan (2023 12:24 AM ADULT PROBATION OFFICER): 06/2022 EGD and colonoscopy was scheduled but it was cancelled because he didn't prep correctly. Will need to reschedule. Chronic constipation 11/15/2022 Cigarette smoker 11/04/2022 Assessment & Plan (11/04/2022 10:40 AM CDT): Encouraged smoking cessation. Discussed 3 minutes. Reviewed options for assistance with cessation. Reviewed keno terminal operator sequela associated with smoking. Pt declines assistance at this time but may contact the office at anytime for further help as they desire. Low-dose CT is due. Will place order at [facility]. Prostate cancer screening 11/04/2022 Assessment & Plan (11/04/2022 10:42 AM CDT): Check PSA Tobacco abuse 11/04/2022 Assessment & Plan (12/07/2023 9:37 PM CDT): Encouraged smoking cessation. Discussed 3 minutes. Reviewed options for assistance with cessation. Reviewed keno terminal operator sequela associated with smoking. Pt declines assistance at this time but may contact the office at anytime for further help as they desire. Mostly smoking cigars but still recommend cessation Assessment & Plan (2023 12:23 AM ADULT PROBATION OFFICER): Patient continues to smoke primarily cigars Myalgia 06/18/2022 Assessment & Plan (06/19/2022 12:02 AM ADULT PROBATION OFFICER): Patient has had acute cough and cold symptoms for the last week. Will check flu and COVID test. These were negative in the office so encouraged to continue to treat symptoms with djqm-piq-skskfna cough and cold medication. If symptoms worsen [...] cardiology referral. Prefers to be seen in [place]. Will place the referral. Reminded patient if [...] cardiology referral. Prefers to be seen in [place]. Will place the referral. Reminded patient if [...] to go to Dr. Vee up in [place]. Assessment & Plan (06/01/2021 11:11 PM ADULT PROBATION OFFICER): Patient with history of rectal polyp per colonoscopy done in September of 2017 at [facility].. Due to have repeat colonoscopy for follow-up. [...] Mccloud Assessment & Plan (2023 12:23 AM ADULT PROBATION OFFICER): Continue per Dr. Sher sleep Medicine. Patient [...] filter and a mask. Dr. Mccloud, in [place], is who manages his sleep issues. His [...] nightly Assessment & Plan (06/01/2021 11:10 PM ADULT PROBATION OFFICER): Patient has not been using his CPAP regularly he is unsure if the machine is working correctly. Dr. Blackburn his previous PCP is who ordered the last sleep study. Will refer to Dr. Mccloud sleep specialist in [place] for further evaluation so we can get [...] loss. Will order CPAP device. Order to [facility] Home care Assessment & Plan (09/27/2019 10:38 [...] can be ordered. Pt is ok with [facility] Home Care. Microalbuminuria 09/27/2019 Assessment & Plan (04/19/2020 9:18 PM CDT): Avoid nephrotoxic drugs including NSAIDs. Monitor labs. Manage DM tightly. If continues to elevate may need to see nephrology Assessment & Plan (09/27/2019 10:39 AM CDT): Encouraged tighter control of DM to avoid keno terminal operator renal problems. Primary hypertension 09/05/2019 Assessment & Plan (05/14/2024 10:17 AM ADULT PROBATION OFFICER): Stable continue lisinopril Assessment & Plan (04/23/2024 10:38 AM CDT): Stable continue lisinopril Assessment & Plan (04/05/2024 5:26 AM CDT): Stressed importance of continued A1c control to minimize the detention effects of diabetes. Bring accuchecks to office [...] prescribed. Assessment & Plan (2023 12:23 AM ADULT PROBATION OFFICER): Bp is stable/in acceptable range for any co-morbidities. Encouraged to limit sodium intake and exercise for weight control. Continue lisinopril 20 Assessment & Plan (05/30/2023 2:26 PM ADULT PROBATION OFFICER): This is a chronic condition which is [...] 20 Assessment & Plan (08/29/2022 12:54 PM ADULT PROBATION OFFICER): This is a chronic condition which is [...] prescribed. Assessment & Plan (05/31/2022 4:13 PM ADULT PROBATION OFFICER): This is a chronic condition which is [...] 20 Assessment & Plan (06/01/2021 11:09 PM ADULT PROBATION OFFICER): Bp is stable/in acceptable range for any [...] Reviewed options for assistance with cessation. Reviewed keno terminal operator sequela associated with smoking. Pt declines [...] 08/19/2019 Assessment & Plan (05/04/2024 10:45 AM ADULT PROBATION OFFICER): This is a chronic condition which is [...] eye exam. last dilated eye exam was [facility]. Monofilament foot exam completed. 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 Goal is <30 Continue lisinopril Assessment & Plan (12/07/2023 9:38 PM CDT): Stressed importance of continued A1c control to minimize the keno terminal operator effects of diabetes. Bring accuchecks to [...] last dilated eye exam was [facility] in [place] Monofilament foot exam completed. loss of protective [...] atorvastatin. Assessment & Plan (2023 12:22 AM ADULT PROBATION OFFICER): Stressed importance of continued A1c control to minimize the keno terminal operator effects of diabetes. Bring accuchecks to [...] 9.1. Assessment & Plan (05/30/2023 2:25 PM ADULT PROBATION OFFICER): This is a chronic condition which is [...] but could not afford copay- applied for [employer] patient assistance for Soliqua Monitor blood sugar [...] Have tried to get him enrolled in [employer] patient assistance program but we have had complications receiving the right paperwork. Today I was able to access his security account and print off his most recent so security statement Monitor blood sugar 2x times a day. Encouraged annual eye exam. last dilated eye exam was [facility] in [place] Monofilament foot exam completed. loss of protective [...] of continued A1c control to minimize the keno terminal operator effects of diabetes. Bring accuchecks to office when instructed to do so. Check A1c about every 3-6 months. Take medication as prescribed. Get annual eye exam. Encouraged ROSARIO/Statin if able to tolerate. Encouraged weight control and encouraged diabetic diet and exercise. Continue per Sakina Ramesh Assessment & Plan (08/29/2022 12:55 PM ADULT PROBATION OFFICER): This is a chronic condition which is [...] Personally reviewed A1c -8.9% Forms provided for [employer] patient assistance program . Personally reviewed blood sugar -359, not at goal 80-180 Medication- Continue Tresiba u200 46units daily. Continue metformin 1000mg twice daily. Monitor blood sugar 2 times a day. Encouraged annual eye exam. last dilated eye exam was [facility] in [place] Monofilament foot exam completed. loss of protective [...] MD. Assessment & Plan (05/31/2022 4:15 PM ADULT PROBATION OFFICER): This is a chronic condition which is improving but not at goal due to not being able to afford his insulin co-pay Personally reviewed A1c -10.6 %, not at goal less than 7% Forms provided for [employer] patient assistance program. Personally reviewed blood sugar -295, not at goal 80-180 Medication- Continue Tresiba u200 46units daily. 5 samples of Toujeo max provided. Sampled of glucerna provided Continue metformin 1000mg twice daily. Monitor blood sugar 2 times a day. Encouraged annual eye exam. last dilated eye exam was [facility] in [place] Monofilament foot exam completed. loss of protective [...] last dilated eye exam was [facility] in [place] Monofilament foot exam completed. loss of protective [...] of continued A1c control to minimize the detention effects of diabetes. Bring accuchecks to office when instructed to do so. Check A1c about every 3-6 months. Take medication as prescribed. Get annual eye exam. Encouraged ROSARIO/Statin if able to tolerate. Encouraged weight control and encouraged diabetic diet and exercise. He follows with Sakina Ramesh nurse practitioner in [place]. Currently states sugars have been a little [...] last dilated eye exam was [facility] in [place] Monofilament foot exam completed. loss of protective [...] last dilated eye exam was [facility] in [place] Monofilament foot exam completed. loss of protective [...] of continued A1c control to minimize the keno terminal operator effects of diabetes. Bring accuchecks to office when instructed to do so. Check A1c about every 3-6 months. Take medication as prescribed. Get annual eye exam. Encouraged ROSARIO/Statin if able to tolerate. Encouraged weight control and encouraged diabetic diet and exercise. Continue per Sakina Ramesh nurse practitioner in [place]. Unsure if the syncopal type event could have been a hypoglycemic event so will continue to work with her closely and work on tight control of his diabetes. Assessment & Plan (08/30/2021 1:26 PM ADULT PROBATION OFFICER): This is a chronic condition which is [...] last dilated eye exam was [facility] in [place] Monofilament foot exam completed. loss of protective [...] MD. Assessment & Plan (06/01/2021 11:07 PM ADULT PROBATION OFFICER): Stressed importance of continued A1c control to minimize the detention effects of diabetes. Bring accuchecks to office when instructed to do so. Check A1c about every 3-6 months. Take medication as prescribed. Get annual eye exam. Encouraged ROSARIO/Statin if able to tolerate. Encouraged weight control and encouraged diabetic diet and exercise. Continue per Sakina Ramesh nurse practitioner Assessment & Plan (05/31/2021 2:36 PM ADULT PROBATION OFFICER): This is a chronic condition which is not at goal. Personally reviewed A1c -8.6, not at goal less than 7% Personally reviewed blood sugar -275 goal 80-180 Medication- stop Lantus and glimeperide. Start Soliqua 30 units and will titrate up. Covered on insurance plan. Monitor blood sugar 2 times a day. Encouraged annual eye exam. last dilated eye exam was [facility] in [place] Monofilament foot exam completed. loss of protective [...] of continued A1c control to minimize the keno terminal operator effects of diabetes. Bring accuchecks to office when instructed to do so. Check A1c about every 3-6 months. Take medication as prescribed. Get annual eye exam. Encouraged ROSARIO/Statin if able to tolerate. Encouraged weight control and encouraged diabetic diet and exercise. Continue per endocrinology Mixed hyperlipidemia 08/19/2019 Assessment & Plan (05/14/2024 10:17 AM ADULT PROBATION OFFICER): Stable continue Lipitor Assessment & Plan (05/04/2024 10:47 AM ADULT PROBATION OFFICER): >>ASSESSMENT AND PLAN FOR MIXED HYPERLIPIDEMIA WRITTEN ON 04/23/2024 10:38 AM BY RADHA HOWARD MD Stable continue Lipitor Assessment & Plan (05/04/2024 10:45 AM ADULT PROBATION OFFICER): This is a chronic condition which is [...] prescribed. Assessment & Plan (2023 12:22 AM ADULT PROBATION OFFICER): Encouraged patient to follow low fat/low chol diet like the Mediterranean diet. Increase good fats in the diet. Increase exercise. Monitor labs as needed. Continue atorvastatin Assessment & Plan (05/30/2023 2:25 PM ADULT PROBATION OFFICER): This is a chronic condition which is [...] prescribed. Assessment & Plan (05/04/2024 10:47 AM ADULT PROBATION OFFICER): >>ASSESSMENT AND PLAN FOR HYPERLIPIDEMIA ASSOCIATED WITH TYPE 2 DIABETES MELLITUS (HCC) WRITTEN ON 11/04/2022 10:34 AM BY CASSIE RG PA Encouraged patient [...] atorvastatin Assessment & Plan (08/29/2022 12:54 PM ADULT PROBATION OFFICER): This is a chronic condition which is at goal. Goal is less than 70. Personally reviewed lipid panel. continue atorvastatin Encouraged to eat healthy, include fresh fruits and vegetables daily and avoid eating fried foods more than once per week. Encouraged to take medications as prescribed. Assessment & Plan (05/31/2022 4:14 PM ADULT PROBATION OFFICER): This is a chronic condition which is [...] prescribed. Assessment & Plan (08/30/2021 1:10 PM ADULT PROBATION OFFICER): This is a chronic condition which is not at goal. Goal is less than 70. Personally reviewed lipid panel. LDL- 91- changed to atorvastatin 40mg (high intensity) Encouraged to eat healthy, include fresh fruits and vegetables daily and avoid eating fried foods more than once per week. Encouraged to take medications as prescribed. Assessment & Plan (06/01/2021 11:08 PM ADULT PROBATION OFFICER): Encouraged patient to follow fat/low chol diet like the Mediterranean diet. Increase good fats in the diet. Increase exercise. Monitor labs as needed. Assessment & Plan (05/31/2021 2:29 PM ADULT PROBATION OFFICER): This is a chronic condition which is [...] 08/19/2019 Assessment & Plan (2023 12:23 AM ADULT PROBATION OFFICER): Continue per Dr. Sher sleep Medicine. Patient [...] Requip Assessment & Plan (06/01/2021 11:08 PM ADULT PROBATION OFFICER): Continue Requip Assessment & Plan (10/18/2020 10:39 [...] Reviewed options for assistance with cessation. Reviewed detention sequela associated with smoking. Pt declines assistance at this time but may contact the office at anytime for further help as they desire. Assessment & Plan (12/14/2019 10:24 PM CDT): Encouraged cessation Assessment & Plan (09/27/2019 10:40 AM CDT): Encouraged smoking cessation. Discussed 3 minutes. Reviewed options for assistance with cessation. Reviewed keno terminal operator sequela associated with smoking. Pt declines assistance at this time but may contact the office at anytime for further help as they desire. Assessment & Plan (09/05/2019 4:35 PM CDT): Encouraged smoking cessation. Discussed 3 minutes. Reviewed options for assistance with cessation. Reviewed keno terminal operator sequela associated with smoking. Pt declines [...] well Assessment & Plan (05/27/2023 9:29 AM ADULT PROBATION OFFICER): Weight/BMI is in healthy range. Continue healthy [...] 11/24/2023 Assessment & Plan (06/19/2022 12:01 AM ADULT PROBATION OFFICER): This is a significant, separately identifiable problem that was evaluated and managed on the same day as the wellness exam Persistent neck pain with movement. Does have some numbness down the arm. Has EMG with Dr. Campbell in [place] and the results are still pending. He [...] 11/24/2023 Assessment & Plan (06/19/2022 12:01 AM ADULT PROBATION OFFICER): This is a significant, separately identifiable problem [...] 11/24/2023 Assessment & Plan (06/19/2022 12:02 AM ADULT PROBATION OFFICER): Patient has had acute cough and cold symptoms for the last week. Will check flu and COVID test. These were negative in the office so encouraged to continue to treat symptoms with czoo-zjg-uiotgdb cough and cold medication. If symptoms worsen or do not resolve he is to follow up immediately. Cough 06/18/2022 11/24/2023 Assessment & Plan (06/19/2022 12:02 AM ADULT PROBATION OFFICER): Patient has had acute cough and cold symptoms for the last week. Will check flu and COVID test. These were negative in the office so encouraged to continue to treat symptoms with acix-mum-vwlyjiu cough and cold medication. If symptoms worsen or do not resolve he is to follow up immediately. Chest congestion 06/18/2022 11/24/2023 Assessment & Plan (06/19/2022 12:02 AM ADULT PROBATION OFFICER): Patient has had acute cough and cold symptoms for the last week. Will check flu and COVID test. These were negative in the office so encouraged to continue to treat symptoms with anqt-wxb-cywxina cough and cold medication. If symptoms worsen or do not resolve he is to follow up immediately. Body aches 06/18/2022 11/24/2023 Assessment & Plan (06/19/2022 12:02 AM ADULT PROBATION OFFICER): Patient has had acute cough and cold symptoms for the last week. Will check flu and COVID test. These were negative in the office so encouraged to continue to treat symptoms with bdol-mhc-jsnauth cough and cold medication. If symptoms worsen or do not resolve he is to follow up immediately. Medicare annual wellness visit, subsequent 06/18/2022 11/03/2022 Assessment & Plan (06/19/2022 12:02 AM ADULT PROBATION OFFICER): Encouraged healthy lifestyle, good nutrition and exercise. [...] He is to follow-up with the his cement patcher in [place] soon as possible to review his control. [...] 06/01/20212021 Assessment & Plan (06/01/2021 10:52 AM ADULT PROBATION OFFICER): Obesity is unchanged. Discussed the patient's BMI. The BMI is above average. BMI management plan is completed. BMI Follow-up includes: nutrition counseling, exercise counseling and education provided. BMI 30.0-30.9,adult 06/01/2021 11/02/19 Assessment & Plan (06/01/2021 10:52 AM ADULT PROBATION OFFICER): Obesity is unchanged. Discussed the patient's BMI. The BMI is above average. BMI management plan is completed. BMI Follow-up includes: nutrition counseling, exercise counseling and education provided. Medicare annual wellness visit, subsequent 06/01/2021 03/24/2022 Assessment & Plan (06/01/2021 11:12 PM ADULT PROBATION OFFICER): Encouraged healthy lifestyle, good nutrition and exercise. [...] Moran Assessment & Plan (06/01/2021 11:12 PM ADULT PROBATION OFFICER): Patient has noticed decreased hearing. His ear canals are clear. Will refer to ENT/audiology for further evaluation Close exposure to COVID-19 virus 05/20/2021 06/01/2021 Assessment & Plan (05/20/2021 5:45 PM ADULT PROBATION OFFICER): Patient to presume positive COVID until results are available and self isolate for 10 days from the onset of sxs. Check COVID test thru [facility] collection site in [place]. If positive, complete quarantine and consider monoclonal [...] water often. If needed, use a hand rides supervisor that contains at least 60% alcohol. Clean [...] 11/04/2022 Assessment & Plan (06/01/2021 11:12 PM ADULT PROBATION OFFICER): Encouraged smoking cessation. Discussed 3 minutes. Reviewed options for assistance with cessation. Reviewed detention sequela associated with smoking. Pt declines assistance at this time but may contact the office at anytime for further help as they desire. Assessment & Plan (10/18/2020 10:41 PM CDT): Encouraged smoking cessation. Discussed 3 minutes. Reviewed options for assistance with cessation. Reviewed keno terminal operator sequela associated with smoking. Pt declines assistance at this time but may contact the office at anytime for further help as they desire. Encouraged to followup on LDCT Microalbuminuria 04/19/2020 04/19/2020 BMI 29.0-29.9,adult 12/14/2019 06/01/20 Assessment & Plan (10/18/2020 10:41 PM CDT): [...] microalbuminuria, with long-term current use of insulin ([facility]) 09/27/2019 05/31/2021 Assessment & Plan (10/18/2020 10:39 PM CDT): Stressed importance of continued A1c control to minimize the detention effects of diabetes. Bring accuchecks to office [...] of continued A1c control to minimize the keno terminal operator effects of diabetes. Bring accuchecks to [...] of continued A1c control to minimize the keno terminal operator effects of diabetes. Bring accuchecks to [...] of continued A1c control to minimize the keno terminal operator effects of diabetes. Bring accuchecks to office when instructed to do so. Check A1c about every 3-6 months. Take medication as prescribed. Get annual eye exam. Encouraged ROSARIO/Statin if able to tolerate. Encouraged weight control and encouraged diabetic diet and exercise. Continue per endocrinology Assessment & Plan (12/14/2019 10:22 PM CDT): Stressed importance of continued A1c control to minimize the keno terminal operator effects of diabetes. Bring accuchecks to [...] of continued A1c control to minimize the detention effects of diabetes. Bring accuchecks to office when instructed to do so. Check A1c about every 3-6 months. Take medication as prescribed. Get annual eye exam. Encouraged ROSARIO/Statin if able to tolerate. Encouraged weight control and encouraged diabetic diet and exercise. Refer back to Brokerage Office Manager to manage his DM. He is on Gabapentin 60mg bid for neuropathy. Immunizations Immunization Administration Dates Next Due Influenza, Quadrivalent, Spl it, Intramuscular 04/04/2016,04/17/2015 Influenza, Quadrivalent, Spl it, Preservative Free, Intramuscular 04/01/2023,04/03/2022,03/04/2020,03/10 Influenza, Trivalent, IM (MDV) 07/19/2014 Influenza, Trivalent, Preser vative Free, Intramuscular 03/25/2024 Influenza, Unspecified 07/24/2022(Deferr ed: Patient Refused),04/20/2021,02/29/2020, 019 Pneumococcal Conjugate, Unspecified 05/05/2019 Social History Tobacco Use Types Packs/Day Years [...] on file Legal Sex Male 1:19 PM ADULT PROBATION OFFICER Gender Identity Not on file Sexual Orientation Not on file Occupation Industry Job Start Date Job End Date Disabled Not on file Not on file Not on file Last Filed Vital Signs Vital Sign Reading Time Taken Comments Blood Pressure 150/95 06/10/2024 10:27 AM ADULT PROBATION OFFICER Pulse 94 06/10/2024 10:27 AM ADULT PROBATION OFFICER Temperature 36.9 C (98.5 F) 03/25/2024 11:00 AM CDT Respiratory Rate 18 02/09/2024 9:00 PM CDT Oxygen Saturation 100% 06/10/2024 10:27 AM ADULT PROBATION OFFICER Inhaled Oxygen Concentration - - Weight 75.3 kg (166 lb) 05/12/2024 10:11 AM ADULT PROBATION OFFICER Height 170.2 cm (5' 7.01) 06/10/2024 10:[address] Body Mass Index 26 05/12/2024 10:11 AM ADULT PROBATION OFFICER Plan of Treatment Not on file Procedures Procedure Name Priority Date/Time Associated Diagnosis Comments SCAN - LABS 12/16/2024 POCT HEMOGLOBIN A1C Routine 05/04/2024 10:28 AM ADULT PROBATION OFFICER Type 2 diabetes mellitus with hypoglycemia without coma, with long-term current use of insulin (HCC) HEPATITIS PANEL, ACUTE Routine 04/08/2024 10:12 AM CDT Neuropathy HM DIABETES EYE EXAM Routine 03/04/2024 3:17 PM [...] 12/02/2022 9:00 AM CDT Prostate cancer screening HM COLONOSCOPY Routine 10/10/2017 CT ABDOMEN PELVIS W WO CONTRAST Routine 07/24/2017 6:00 PM ADULT PROBATION OFFICER from Last 3 Months or Most Recently Relevant to Health Maintenance Results * SCAN - LABS (12/16/2024) us Provider Scanning Final Result * POCT hemoglobin A1c (05/04/2024 10:28 AM ADULT PROBATION OFFICER) Hemoglobin A1C, POC 5.5 4.0 - 5.6 % Blood 05/04/2024 10:2 8 AM ADULT PROBATION OFFICER Sakina Ramesh NP POINT OF CARE TEST ORDERABLES F inal Result * Hepatitis panel, acute Blood (04/08/2024 10:12 AM CDT) Hep A IgM Nonreactive Nonreactive Comment: Interpretive Data: If Hep A IgM Ab is reported as Equivocal, a new sample should be drawn in two weeks for testing. Current interpretive data was last revised on 19. Testing performed by: [address] [address] Hep B core IgM Nonreactive Nonreactive [facility] ([place]) Comment: Interpretive Data If HepB Core IgM Ab is reported as Equivocal, a new sample should be drawn in two weeks for testing. Current interpretive data was last revised on 19. Testing performed by: [facility], [address] [place] [address]., [id number] Hep C Ab Nonreactive Nonreactive [facility] ([place]) Comment: Interpretive Data Nonreactive: Antibodies to [...] last revised on 2019. Testing performed by: [facility], [address] [place] [address]., [address] HepBsAg Nonreactive Nonreactive KATHY MEMBR[facility] ([place]) Comment:Testing performed by : [facility], [address] [place] [address]., [id number] Blood 04/08/2024 10:1 2 AM CDT 04/08/2024 7:02 PM CDT Cassie ROSALES LAB MICROBIOLOGY - GENERAL ORDERABLES Final Result KATHY MEMBRENO ([place]) 1 [facility] [place] [address] * (ABNORMAL) DIABETES EYE EXAM (03/04/2024 3:17 PM CDT) SCRIBED DIABETIC DILATED EYE EXAM Abnormal Historical Provider HEALTH MAINTENANCE Edited Result - [...] 4:13 PM CDT 02/09/2024 5:00 PM CDT Cornel Garcia MD LAB BLOOD ORDERABLE S Final Result Performing Organization Address [facility]/ZIP Co de Phone Number KATHY [address] [facility] [place] [address] * CT Lung Cancer Screening (12/22/2023 3:43 PM CDT) Anatomical Region Laterality Modality Chest N/A Computed Tomogra phy Cassie ROSALES IMG CT PROCEDURES Final Re sult * (ABNORMAL) Albumin Creatinine Ratio, Urine (09/19/2023 10:24 AM CDT) Albumin Ur 2,321.8 mg/L Comment: Interpretive Data No reference range established. Current interpretive data was last revised 2018. Testing performed by: [address] [address] Creatinine Ur 301.4 mg/dL KATHY [facility] ([place]) Comment: Interpretive Data No reference range established. Current interpretive data was last revised 2018. Testing performed by: [address] [address] Albumin Creatinine Ratio, Ur 770(H) 1 - 29 mg/g KATHY [facility] ([place]) Comment:Testing performed by : [address] [address] Urine 09/19/2023 10:2 4 AM CDT 09/19/2023 4:00 PM CDT Sakina Ramesh NP LAB URINE ORDERABLES Final Resu lt Performing Organization Address City/[facility]/ZIP Co de Phone Number KATHY [facility] ([place]) 1 [facility] [place] [address] * (ABNORMAL) Lipid panel (09/19/2023 10:24 AM [...] CDT 09/19/2023 1:29 PM CDT Narrative KATHY MEMBRENO ([place]) - 09/19/2023 2:01 PM CDT These lab test should be done fasting. This means do not eat or drink for at least 12 hours prior to getting your blood drawn. us Sakina Ramesh NP LAB BLOOD ORDERABLES Final Resu lt KATHY [facility] ([place]) 1 [facility] [place] [address] * PSA screen (12/02/2022 9:00 AM CDT) PSA-Total 1.09 <=5.40 ng/mL KATHY MEMBR[facility] ([place]) Comment: Interpretive Data AGE SEX REFERENCE INTERVAL [...] 9:00 AM CDT 12/02/2022 1:16 PM CDT Cassie ROSALES LAB BLOOD ORDERABLES Final Result KATHY MEMBR[facility] ([place]) 1 [facility] [place] [address] * COLONOSCOPY (10/10/2017) Colonoscopy Abnormal Comment:rectal polyp Historical Provider [facility] MAINTENANCE Final Result * CT Abdomen Pelvis W WO Contrast (07/24/2017 6:00 PM ADULT PROBATION OFFICER) Anatomical Region Laterality Modality Body N/A Computed Tomogra phy 07/24/2017 6:00 PM ADULT PROBATION OFFICER Narrative 07/24/2017 6:33 PM ADULT PROBATION OFFICER JOSE CARVALHO M.D. FINAL REPORT ACC# Date Time Exam [id number] Jul 24, 2017 12:00:[id number] Abd & Pelvis wwo cont EXAMINATION: [...] CARVALHO M.D. on Jul 24 2017 12:31P [id number] CARVALHO M.D. FINAL REPORT Attending: BONNIE REGAN Requesting: IRWIN BOWMAN Requesting Fax: Attending Fax: Attending ID: [id number] Requesting ID: [id number] Report To 1 ID: [id number] Report To 1 Name: , Report To 1 FAX: NextGen Order #: Procedure Note Miscellaneous, Not In File - 07/24/2017 JOSE CARVALHO M.D. FINAL REPORT ACC# Date Time Exam [id number] Jul 24, 2017 12:00:[id number] Abd & Pelvis wwo cont EXAMINATION: [...] CARVALHO M.D. on Jul 24 2017 12:31P [id number] CARVALHO M.D. FINAL REPORT Attending: BONNIE REGAN Requesting: IRWIN BOWMAN Requesting Fax: Attending Fax: Attending ID: [id number] Requesting ID: [id number] Report To 1 ID: [id number] Report To 1 Name: , Report To 1 FAX: NextGen Order #: Irwin Bowman MD IMG CT PROCEDURES Final Re sult from Last 3 Months or Most Recently Relevant to [place] [address] [facility] Address: [facility] [address] [place] [address] [employer] MEDICARE [facility] MEDIC[facility] Address: [address] [place] [address] [place] [address] [place] [address] Advance Directives For more information, please contact: [phone] * Full Code (Latest Code Status on File) Date Activated Date Inactivated Comments 11/26/2022 10:28 AM 12/02/2022 1:56 PM * Full Code Date Activated Date Inactivated Comments 11/26/2022 10:28 AM 11/26/2022 10:28 AM Care Teams 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
--- OUTSIDE RECORDS SUMMARY | 2024-12-24 00:03 | XMS_ITS | Encounter Summary ---
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 [employer] Gender Identity Not on file Sexual Orientation Not on file Occupation Industry Job Start Date Job End Date Disabled Not on file Not on file Not on file documented as of this encounter Plan of Treatment Not on file documented as of this encounter Procedures Procedure Name Priority Date/Time Associated Diagnosis Comments SCAN - LABS 12/16/2024 documented in this encounter Results * SCAN - LABS (12/16/2024) us Provider Scanning Final Result documented in this encounter Visit Diagnoses Not on filedocumented in this encounter Care Teams Housemaid Relationship Specialty Start Date End Date Sushma Rg PA [address] [place] [address] PCP - General Internal Medicine 08/17/21 Essence Mccloud MD [address] [place] [address] Consulting Physician Neurology 11/04/22 To Dominguez MD [address] [facility] [address] [place] [address] Consulting Physician Neurology 11/24/23 documented as of this encounter
--- OUTSIDE RECORDS SUMMARY | 2024-12-24 00:03 | XMS_ITS | Clinical Summary ---
Author Organization [facility] Address [address] [place] [address] Care Team Providers Care Paymaster Of Purses Name Role Phone Bro Hernandez MD Unavailable [phone] Dong Castillo MD Primary Care Provider [phone] Source Comments [facility],non-owned Affiliates and Associated Physician Practices is amultiple site organization consisting of ambulatory clinics and hospital sitesin [place], [place], [place] and [place]. This disclosure is being madepursuant to the Care Everywhere program and may not contain all information available regarding this patient. Last updated 18.[facility] Allergies Active Allergy Reactions Criticality Noted Date Comments Codeine Urticaria,Anaphylaxis High 12/01/2017 Medications * Be aware that medications may not be up to date on this document. Alwaysverify current medications with the patient. Blood Glucose Monitoring Suppl (ONETOUCH VERIO) W/DEVICE KIT 05/27/20 18 Active ONETOUCH VERIO test strip 05/27/20 18 Active ONETOUCH DELICA LANCETS 33G MISC 05/27/20 18 Active rOPINIRole (REQUIP) 1 MG tablet Take 1 (one) tablet by mouth once daily 08/25/19 19 Active aspirin (ASPIRIN) 81 MG tablet Take 1 (one) tablet by mouth once daily Active albuterol HFA (PROVENTIL;VENT BROOKS;PROAIR) 108 (90 Base) MCG/ACT inhaler Inhale 2 (two) puffs by mouth every 6 hours as needed Active polyethylene glycol 3350 (MIRALAX) powder Take 17 g by mouth once daily as needed for Constipation 1 capful dissolved in 4-8 oz water or juice daily 1 bottles 03/02/20 19 Active fluticasone propionate (FLONASE) 50 MCG/ACT nasal spray Angie 2 (two) sprays into each nostril once daily 11/01/19 20 Active Alcohol Swabs (ALCOHOL WIPES) 70 % as directed Active empagliflozin (JARDIANCE) 25 MG tablet Take 1 (one) tablet by mouth once daily 30 tablet 4 09/20/19 21 Active insulin pen needle (BD UF III) 31G X 8 MM needle 1 (one) Each 2 times daily 100 Each 3 10/07/19 21 Active insulin lispro (HumaLOG) 100 UNIT/ML vial Inject subcutaneously 3 times daily before meals SSI 70-150 0 151-200 2 .201-250 4 251-300 6 301-350 8 351-400 10 Active Nutritional Supplement LIQD Take 1 container by mouth 3 times daily Low Calorie High Protein Supplement Examples: Ensure High Protein/Boost High Protein/Premier Protein High Calorie High Protein Supplement Examples: Ensure Enlive/Ensure Plus/Boost Plus/Equate Plus Diabetic Supplement Examples: Ensure High Protein/Glucerna/B oost Glucose Control/Enterex Diabetic 08/20/19 25 Active acetaminophen (Tylenol) 500 MG tablet Take 2 (two) tablets by mouth every 6 hours as needed for Fever or Pain Maximum allowable Acetaminophen amount = 4 Grams (4000 mg) / 24 hours. 08/31/19 25 Active Additional Information Patient taking differently: 500-1,000 mgOral EVERY 6 HOURS PRN,Fever, Pain, Headache, Maximum allowable Acetaminophen amount = 4 Grams (4000 mg) / 24 hours., Reported on 09/09/2024 pravastatin (Pravachol) 40 MG tablet Take 1 (one) tablet by mouth at bedtime for 30 days 30 tablet 08/31/19 25 Active lisinopril (Prinivil; Zestril) 30 MG tablet Take 1 (one) tablet by mouth once daily for 30 days 30 tablet 09/01/19 25 Active pantoprazole EC (Protonix) 40 MG tablet Take 1 (one) tablet by mouth once daily for 30 days 30 tablet 09/01/19 25 Active insulin glargine (Lantus/Semglee ) 100 units/mL pen Inject 20 (twenty) Units subcutaneously at bedtime for 30 days 6 mL 08/31/19 25 Active DropSafe Safety Pen [place] 31G X 6 MM MISC as directed 08/04/19 25 Active BD Pen Needle Irma 2nd Gen 32G X 4 MM MISC 1 Each as directed 24 Active metFORMIN (Glucophage) 1000 MG tablet Take 1 (one) tablet by mouth 2 times daily with morning and evening meal 08/17/19 25 Active NIFEdipine CR osmotic 24hr (Procardia-XL) 30 MG tablet Take 1 (one) tablet by mouth once daily 08/20/19 25 Active Glucagon (Baqsimi One Pack) 3 MG/DOSE POWD Angie 3 mg into the nose as directed Active amoxicillin-cla vulanate (Augmentin) 500-125 MG tablet Take 1 (one) tablet by mouth 2 times daily 09/28/19 25 Active HYDROcodone-libby taminophen (Seligman) 5-325 MG tablet 09/28/19 25 Active Santyl 250 UNIT/GM ointment 09/21/19 25 Active ciprofloxacin (Cipro) 500 MG tablet Take 1 (one) tablet by mouth 2 times daily 10/16/19 25 Active doxycycline monohydrate 100 MG capsule Take 1 (one) capsule by mouth every 12 hours 10/07/19 25 Active fluconazole (Diflucan) 100 MG tablet Take 1 (one) tablet by mouth once daily 10/19/19 25 Active Active Problems Problem Noted Date [...] 04/09/2018 Overview (09/09/2024): Mild Renal mass, left Encounters Date Type Department Care Team Description 12/09/2024 12:00 PM CDT Office Visit [facility] - Orthopedics [address] [place] [address], [place] [address] Dennis Robert MD S/P cervical spinal fusion (Primary Dx) 12/09/2024 11:57 AM CDT - 12/09/2024 11:59 PM CDT Hospital Encounter [facility] [address] [place] [address] Dennis Robert MD Discharge Disposition: Home or Self Care 11/25/2024 Orders Only [facility] - Orthopedics [address] [place] [address], [place] [address] Dennis Robert MD S/P cervical spinal fusion 09/29/2024 1:45 PM CDT Office Visit [facility] - Urology [address] [place] [address] Bro Hernandez MD Personal history of renal cell carcinoma (Primary Dx); Penile implant failure, sequela from Last 3 Months Immunizations Immunization Administration Dates Next Due INFLUENZA VACCINE, TRIV. (AF LURIA, FLUZONE TRIVALENT; 6MO+) (IIV3) 07/19/2014 FLU VACCINE QUAD IIV4 SPLIT 0.25 ML IM 04/04/2016,04/17/2015 FLU VACCINE TRI IIV3 SPLIT P F IM (FLUVIRIN) 03/25/2024 INFLUENZA VACCINE 04/20/2021,02/29/2020,05/05/20 INFLUENZA VACCINE, QUADR. (A FLURIA, FLUZONE QUADRIVALENT; 6MO+) (IIV4) 03/25/2019 INFLUENZA VACCINE, QUADR. (F LUZONE; FLULAVAL; FLUARIX; AFLURIA QUADRIVALENT; 6MO+), 0.5 ML (IIV4) 04/01/2023,04/03/2022,03/04/2020,2017 PNEUMOCOCCAL PCV VACCINE 05/05/2019 PNEUMOCOCCAL PPSV23 03/25/2019 Family History Medical History Relation Name Comments Cancer - Other Mother Relation Name Status Comments Brother 1 Alive Brother 2 Alive Brother 3 Brother 4 Father Maternal Grandfather Maternal Grandmother Mother Paternal Grandfather Paternal Grandmother Sister 1 Alive Sister 2 Alive Son 1 Alive Son 2 Alive Social History Tobacco Use Types Packs/Day Years Used Date Smoking Tobacco: Former Cigarettes Passive Smoke Exposure: Current Smokeless Tobacco: Never Comments:6- 10 cigars/day wh ile at retirement. Alcohol Use Standard Drinks/Week Comments No 0 (1 standard drink = 0.6 oz pur e alcohol) AUDIT-C Answer Date Recorded Q1: How often do you have a drink containing alcohol? Never 08/18/2024 Q2: How many drinks containi ng alcohol do you have on a typical day when you are drinking? Patient does not drink Q3: How often do you have si x or more drinks on one occasion? Never 08/18/2024 Overall Financial Resource Strain (CARDIA) Answe r Date Recorded How hard is it for you to pa y for the very basics like food, housing, medical care, and heating? Not very hard 08/19/2024 PHQ-2 Answer Date Recorded Patient Health Questionnaire-2 Score 1 12/09/2024 [facility] - Occupational Stress Questionnaire Answer Date Recorded Do you feel stress - tense, restless, nervous, or anxious, or unable to sleep at night because your mind is troubled all the time - these days? Only a little 08/19/2024 Hunger Vital Sign Answer Date Recorded Within the past 12 months, y ou worried that your food would run out before you got the money to buy more. Never true 08/19/19 25 Within the past 12 months, t he food you bought just didn't last and you didn't have money to get more. Never true 08/19/2024 PRAPARE - Transportation Answer Date Re corded In the past 12 months, has l ack of transportation kept you from medical appointments or from getting medications? No 07/25 In the past 12 months, has l ack of transportation kept you from meetings, work, or from getting things needed for daily living? No 08/19/2024 Housing Stability Vital Sign Answer Gray e Recorded In the last 12 months, was t here a time when you were not able to pay the mortgage or rent on time? No 08/19/2024 In the past 12 months, how m any times have you moved where you were living? 1 08/19/2024 At any time in the past 12 m [facility], were you homeless or living in a long term (including now)? No 08/19/2024 Sex and Gender Information Value Date Recorded Sex Assigned at Not on file Legal Sex Male 7:58 AM CDT Gender Identity Not on file Sexual Orientation Not on file Last Filed Vital Signs Vital Sign Reading Time Taken Comments Blood Pressure 98/66 09/29/2024 1:11 PM CDT Pulse 104 09/29/2024 1:11 PM CDT Temperature 36.6 C (97.9 F) 09/29/2024 1:11 PM CDT Respiratory Rate 16 08/30/2024 4:34 PM CDT Oxygen Saturation 99% 09/29/2024 1:11 PM CDT Inhaled Oxygen Concentration - - Weight 65.3 kg (144 lb) 09/29/2024 1:11 PM CDT Height 170.2 cm (5' 7) 09/29/2024 1:11 PM CDT Body Mass Index 22.55 09/29/2024 1:11 PM CDT Plan of Treatment Upcoming Encounters Date Type Department Care Team (Late st Contact Info) Description 02/23/2025 12:30 PM CDT Appointment [facility] [address] [place] [phone] Blank Javier APRN-MANUFACTURING PROJECT ENGINEER [address] [place] [address] 02/23/2025 2:45 PM CDT Office Visit [facility] - Urology [address] [place] [address] Bro Hernandez MD [address] [facility] [address] [place] [address] 03/03/2025 12:00 PM CDT Office Visit [facility] - Orthopedics [facility] [facility] [place] [phone] Dennis Robert MD [address] [facility] [place] [address] Health Maintenance Due Date Last Done Comments COLOGUARD (AGES 45-75) - COLON CA SCREENING 1959 COLON MONITORING 1959 COLONOSCOPY - COLON CA SCREENING 1959 CT COLONOGRAPHY - COLON CA SCREENING 1959 Colorectal Cancer Screening 1959 FIT - COLON CA SCREENING 1959 FLEX SIG - COLON CA SCREENING 1959 MEDICARE AWV 12 MONTHS 1959 Opioid Medication Agreement - Annual 1959 DTAP/TDAP/TD VACCINES (1 - Tdap) 1978 DIABETES-STATIN 1999 ZOSTER VACCINE (1 of 2) 2009 Respiratory Syncytial Virus (RSV) Vaccine Pt: or over 60 yrs (1 - Risk 60-74 years 1-dose series) 2019 DIABETES-FOOT EXAM WITH MONOFILAMENT 09/19/2020 DIABETES RETINOPATHY SCREENING 03/21/2021 03/21/2020, 03/09/2020, 09/26/2017, Additional history exists COVID-19 VACCINE (1 - 2023- season) 2024 PNEUMOCOCCAL VACCINE 50+ (3 of 3 - PCV20 or PCV21) 05/05/2024 05/05/2019, 03/25/2019 AAA SCREENING 2024 DIABETES - URINE PROTEIN SCREENING 06/23/2024 09/20/2020, 02/21/2020, 01/13/2019 DIABETES-HGB A1C 02/16/2025 08/19/2024, 05/2024, 01/01/2024, Additional history exists INFLUENZA VACCINE (#1) 2025 , 04/01/2023, 04/03/2022, Additional history exists DIABETES-SERUM CREATININE 08/30/20252024, 08/29/2024, 08/28/2024, Additional history exists HEPATITIS C SCREENING Completed 08/21/2024 HIV SCREENING Completed 08/21/2024 DEPRESSION SCREENING Completed 12/09/2024 HEPATITIS B VACCINE Aged Out No longe r eligible based on patient's age to complete this topic HIB VACCINE Aged Out No longer eligi ble based on patient's age to complete this topic HPV VACCINE Aged Out No longer eligi ble based on patient's age to complete this topic MENINGOCOCCAL (Group B) VACCINE SHARED DECISION-MAKING Aged Out No longer eligible based on patient's age to complete this topic MENINGOCOCCAL GROUPS A/C/Y/W VACCINE Aged Out No longer eligible based on patient's age to complete this topic Medical Devices Implanted Type Area Director Of Patient Financial Services Device Identifier Shelf Expiration Date Model / Serial / Lot Screw 4mm 18mm Ma Spne Bone Implanted:Qty: 1 on 08/24/2024 by Dennis Robert MD at [facility] N/A: Spine Cervical [employer] Inc [id number] / / Screw Set M6 Spne Oc Upr Thor Infnt Implanted:Qty: 12 on 08/24/2024 by Dennis Robert MD at [facility] N/A: Spine Cervical Medtronic Sofamor Danek Spine [id number] / / Screw 3.5mm 18mm Ma Spne Bone Implanted:Qty: 5 on 08/24/2024 by Dennis Robert MD at [facility] N/A: Spine Cervical [employer] Inc [id number] / / Screw 3.5mm 26mm Ma Spne Oc Upr Thor Implanted:Qty: 2 on 08/24/2024 by Dennis Robert MD at [facility] N/A: Spine Cervical [employer] Inc [id number] / / Screw 3.5mm 30mm Ma Spne Oc Upr Thor Implanted:Qty: 2 on 08/24/2024 by Dennis Robert MD at [facility] N/A: Spine Cervical [employer] Inc [id number] / / Screw 4mm 28mm Ma Spne Infnt Nonster Implanted:Qty: 2 on 08/24/2024 by Dennis Robert MD at [facility] N/A: Spine Cervical [employer] Inc [id number] / / Magdiel Spnl 240mm 3.5mm Std Implanted:Qty: 1 on 08/24/2024 by Dennis Robert MD at [facility] N/A: Spine Cervical [employer] Inc [id number] / / Explanted Type Area Director Of Patient Financial Services Device Identifier Shelf Expiration Date Model / Serial / Lot Kit Acc Ams 700 Penl Pros Implanted:Qty: 1 on 03/01/2019 by Reggie Gore MD at [facility] Lang-8 Scimed 01/29/2024 [id number] / / [id number] Description:PART OF TOTAL Pros Penl Ams Spctr 1cm 12mm 14mm Mlbl Implanted:Qty: 1 on 03/01/2019 by Reggie Gore MD at [facility] Lang-8 Scimed 11/24/2023 [id number] / / [id number] Pros Penl Ams 700 Ms Information Clerk Brokerage Ams Conceal Implanted:Qty: 1 on 03/01/2019 by Reggie Gore MD at [facility] Lang-8 Scimed 01/03/2021 [id number] / / [id number] Description:PART OF TOTAL Ams 700 Lgx, Ms Pump, Iz Implanted:Qty: 1 on 03/01/2019 by Reggie Gore MD at [facility] 12/26/2020 [id number] / / [id number] Description:TOTAL COST Procedures Procedure Name Priority Date/Time Associated Diagnosis Comments XR CERVICAL SPINE 2 OR 3VW Routine 12/09/2024 12:03 PM CDT S/P cervical spinal fusion BASIC METABOLIC PANEL (CALCIUM TOTAL) Routine 08/30/2024 4:50 AM CDT Displacement of implanted penile prosthesis, initial encounter HEPATITIS C AB SCREEN RFLX NAAT QUANT Routine 08/21/2024 12:06 AM NIPPLE MAKER HIV-1 HIV-2 ANTIBODY + HIV P24 AG PANEL Routine 08/21/2024 12:06 AM NIPPLE MAKER HEMOGLOBIN A1C Routine 08/19/2024 12:22 AM NIPPLE MAKER Displacement of implanted penile prosthesis, initial encounter MICROALB/CREAT RATIO URINE RANDOM PANEL 09/20/2020 6:35 AM CDT from Last 3 Months or Most Recently Relevant to Health Maintenance Results * XR Cervical Spine 2 or 3Vw (12/09/2024 12:03 PM CDT) Anatomical Region Laterality Modality Spine Computed Radiogr aphy 12/10/2024 8:21 AM CDT Impressions 12/10/2024 8:35 AM CDT IMPRESSION: Redemonstrated postsurgical changes of C2-T1 posterior instrumented spinal fusion, unchanged in alignment compared to prior exam. Report dictated by Austin Groves MD (radiology transcriptionist). I, Santhosh Lee MD have personally reviewed and interpreted this examination/study. > Interpreting Provider: Santhosh Lee MD on 12/10/2024 8:35 AM Narrative 12/10/2024 8:35 AM CDT PROCEDURE: XR CERVICAL SPINE 2 OR 3VW, DATE/TIME OF EXAM: 12/09/2024 12:03 PM, LOCATION [facility] INDICATION: Z98.1: S/P cervical spinal fusion COMPARISON: Cervical spine radiographs dated 09/16/2024 FINDINGS: Redemonstrated postsurgical changes of C2-T1 posterior instrumented spinal fusion. Orthopedic hardware is intact and osseous alignment is unchanged compared to prior exam. Unchanged mild focal kyphosis centered on C2-C3. No acute fracture. 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 The predental interval and prevertebral soft tissues are normal. Procedure Note Santhosh Lee MD - 12/10/2024 PROCEDURE: XR CERVICAL SPINE 2 OR 3VW, DATE/TIME OF EXAM: 2:03 PM, LOCATION [facility] INDICATION: Z98.1: S/P cervical spinal fusion COMPARISON: Cervical spine radiographs dated 09/16/2024 FINDINGS: Redemonstrated postsurgical changes of C2-T1 posterior instrumentedspinal fusion. Orthopedic hardware is intact and osseous alignment is unchanged compared to prior exam. Unchanged mild focal kyphosis centered on C2-C3.No acute fracture. Unchanged multilevel degenerative changes of thecervical spine with severe atlantoaxial arthritis. The predental interval and prevertebral soft tissues are normal. IMPRESSION: Redemonstrated postsurgical changes of C2-T1 posterior instrumentedspinal fusion, unchanged in alignment compared to prior exam. Report dictated by Austin Groves MD (radiology transcriptionist). I, Santhosh Lee MD have personally reviewed and interpreted this examination/study. > Interpreting Provider: Santhosh Lee MD on 12/10/2024 8:35 AM Dennis Robert MD DIAGNOSTIC IMAGING ORDERABLES Fi nal Result * (ABNORMAL) BASIC METABOLIC PANEL (CALCIUM TOTAL) (08/30/2024 4:50 AM CDT) BUN 19 7 - 26 mg/dL 08/30/2024 7:11 AM [facility] Creatinine 0.42(L) 0.71 - 1.16 mg/dL 08/30/2024 7:11 AM [facility] Sodium 138 136 - 145 mmol/L 08/30/2024 7:11 AM [facility] Potassium 3.9 3.5 - 4.5 mmol/L 08/30/2024 7:11 AM [facility] Chloride 106 98 - 107 mmol/L 08/30/2024 7:11 AM [facility] CO2 25 22 - 29 mmol/L 08/30/2024 7:11 AM [facility] Glucose 65(L) 70 - 99 mg/dL 08/30/2024 7:11 AM [facility] Calcium 9.0 8.4 - 10.2 mg/dL 08/30/2024 7:11 AM [facility] Anion Gap 7 6 - 16 08/30/2024 7:11 AM [facility] BUN/Creatinine Ratio 45(H) 7 - 23 08/30/2024 7:11 AM [facility] Osmolality Calculated 286 275 - 295 mOsm/kg 08/30/2024 7:11 AM CDT [facility] eGFR by CKD-EPI >90 >=90 mL/min/1.7 3 m2 08/30/2024 7:11 AM T [facility] Blood BLOOD SPECIMEN / Unknown Lab Venipuncture / Unknown 08/30/2024 4:50 AM CDT 08/30/2024 6:46 AM CDT Bro Hernandez MD LAB - CHEMISTRY ORDERABLES Final Result Performing Organization Address [facility] Co de Phone Number [address] [address], [facility] [phone] * HEPATITIS C AB SCREEN RFLX NAAT QUANT (08/21/2024 12:06 AM NIPPLE MAKER) Pathologist [facility] Hepatitis C Antibody Non-react sharmin Non-reac tive 08/21/2024 1:24 AM NIPPLE MAKER [facility] Comment:Hepatitis C Antibody screen indicates no serologic evidence of past or current infection with Hepatitis C Virus. Patients with unexplained liver disease who are immunocompromised or suspected of having acute Hepatitis C infection may benefit from Nucleic Acid Test (MIKE) for Hepatitis C Viral RNA to confirm Hepatitis C status. Blood BLOOD SPECIMEN / Unknown Lab Venipuncture / Unknown 08/21/2024 12:06 AM NIPPLE MAKER 08/21/2024 12:38 AM NIPPLE MAKER Jnaes Mcmillan II, MD LAB - CHEMISTRY ORDERABL ES Final Result Performing Organization Address [facility] Co de Phone Number [address] [address], [place] [phone] * HIV-1 HIV-2 ANTIBODY + HIV P24 AG PANEL (08/21/2024 12:06 AM NIPPLE MAKER) HIV Antigen/Antibod y 1 & 2 Non-reacti ve Non-react sharmin 08/21/2024 1:24 AM NIPPLE MAKER [facility] Comment:No Laboratory eviden ce of HIV infection. Blood BLOOD SPECIMEN / Unknown Lab Venipuncture / Unknown 08/21/2024 12:06 AM NIPPLE MAKER 08/21/2024 12:38 AM NIPPLE MAKER Janes Mcmillan II, MD LAB - CHEMISTRY ORDERABL ES Final Result Performing Organization Address [facility] Co de Phone Number [facility] [address] [place] [address], [facility] [phone] * (ABNORMAL) HEMOGLOBIN A1C (08/19/2024 12:22 AM NIPPLE MAKER) Hemoglobin A1c 7.2(H) <=5.6 % 08/19/2024 9:24 AM [facility] Estimated Average Glucose 160 mg/dL 08/19/2024 9:24 AM [facility] Comment: HbA1c Interpretation: Normal : < 5.7% Pre-diabetes: 5.7-6.4% Diabetes: Equal to or greater than 6.5% Test results diagnostic of diabetes should be repeated for confirmation. Treatment target values recommended by ADA and other clinical organizations should be used to evaluate metabolic control in patients. Reference: [place] [employer], Standards of Care in Diabetes -2020 In patients 70 years and older consider HbA1c target range of 7.0-7.5% (Reference: Jamison Krishnamurthy et al. JAMDA. 2012) The Sebia assay for the measurement of HbA1c is a National Glycohemoglobin Standardization Program (NGSP) certified method. Blood BLOOD SPECIMEN / Unknown Lab Venipuncture / Unknown 08/19/2024 12:22 AM NIPPLE MAKER 08/19/2024 12:37 AM NIPPLE MAKER us Bro Hernandez MD LAB - CHEMISTRY ORDERABLES Final Result Performing Organization Address City/[facility]/ZIP Co de Phone Number [facility] [address] [place] [address], [place] [phone] * (ABNORMAL) MICROALB/CREAT RATIO URINE RANDOM PANEL (09/20/2020 6:35 AM CDT) Creatinine Urine 62 20 - 320 mg/dL [facility] Microalbumin Urine 99.3 mg/dL [facility] Comment: Verified by repeat analysis. Reference Range Not established Microalbumin/Creat inine Ratio 1602(H) <30 mcg/mg creat [facility] Comment: The ADA defines abnormalities in albumin excretion as follows: Category Result (mcg/mg creatinine) Normal <30 Microalbuminuria 30-299 Clinical albuminuria > OR = 300 The ADA recommends that at least two of three specimens collected within a 3-6 month period be abnormal before considering a patient to be within a diagnostic category. 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 08/18/2024 Insurance MEDICARE Advance Directives * Full Code (Latest Code Status on File) Date Activated Date Inactivated Comments 08/18/2024 5:00 PM 08/30/2024 6:39 PM * Full Code Date Activated Date Inactivated Comments 03/01/2019 9:32 AM 03/02/2019 5:26 PM * Full Code Date Activated Date Inactivated Comments 03/01/2019 6:19 AM 03/01/2019 9:32 AM * Full Code Date Activated Date Inactivated Comments 10/01/2018 6:52 PM 10/02/2018 7:14 PM Care Teams Paymaster Of Purses Relationship Specialty Start Date End Date Dong Castillo MD [address] [address] PCP - General Family Medicine 03/07/20 Bro Hernandez MD [address] [address] Urology 01/07/19
--- OUTSIDE RECORDS SUMMARY | 2024-12-24 00:03 | XMS_ITS | Data Portability ---
Author Organization [facility] Mahamed BROWN Address [address] [place] [address] Care Team Providers Care Sock Mender Name Role Phone XENIASHANTAL Primary Care Provider Assessment Encounter Date Assessment Date Assessment LastModified by Organization Details LastModified Time 12/10/2017 12/10/2017 57 yo male with diabetes, htn, and chronic back pain is here for medication refills. NAD Vitals are stable Continue current regimen [email or web address] Not available 12/24/2017 23:19:30 01/30/2018 01/30/2018 57 yo male here w/ c/o worsening daytime sleepiness mmanderson Not available 01/30/2018 18:05:10 03/10/2018 03/10/2018 57 yo male NAD BP 140/90 Diabetes regimen: Glimepiride 4mg BID Metformin 1000mg BID Basaglar insulin 20 units at bedtime Routine labs ordered. RTC in one month mmanderson Not available 03/10/2018 13:04:11 04/09/2018 04/09/2018 57 yo male here to discuss sleep study results NAD mmanderson Not available 04/09/2018 11:52:33 05/12/2018 05/12/2018 medication refills [email or web address] Not available 05/25/2018 09:13:59 Plan of Treatment Reminders Order Date Submit Date Provider Last Modified By Organization Details Last Modified Time Details Appointments None recorded. Lab BMP, serum or plasma 2017 018 DC [facility], [address] [facility], [place], [address], 8 05:11:10 iron + total iron-bind ing capacity (TIBC), serum 2017 018 DC [facility], [address], [address], [place], [address], 8 05:11:09 ferritin, serum or plasma 2017 018 DC [facility], [address], [address], [place], [address], 8 05:11:10 PSA, total, serum or plasma 2017 018 walker [facility], [address], [address], [place], [address], 8 12:06:10 CBC w/ auto diff 2017 018 [email or web address] [facility], [address], [address], [place], [address], 8 10:28:47 CMP, serum or plasma 2017 018 DC [facility], [address], [address], [place], [address], 8 02:00:15 unlisted lab - TSH w/reflex 2017 018 walker [facility], [address], [address], [place], [address], 8 12:06:10 lipid panel, serum 2017 018 DC [facility], [address], [address], [place], [address], 8 02:00:14 HbA1c (hemoglob in A1c), blood 2017 018 walker In-Office Order, Internal Use Only DO Not Attach Compendium DO Not Attach Compendium, Do Not Delete/merge, [id number] 8 16:00:12 Referral pulmonolo gist referral 2017 018 walker Haider MD, [address] [facility], [place], [address], 8 11:16:11 sleep study referral - Reports worsening daytime sleepines s with normal sleep pattern/d uration at night 2017 [email or web address] Not available 8 17:24:45 Procedures None recorded. Surgeries None recorded. Imaging None recorded. Medication Orders Basaglar KwikPen U-100 Insulin 100 unit/mL (3 mL) subcutane ous 2017 018 [facility] [address], [address], 8 15:49:41 lisinopri l 20 mg tablet 2017 018 [facility] [address], [address], 8 10:16:16 Basaglar KwikPen U-100 Insulin 100 unit/mL (3 mL) subcutane ous 2017 018 [facility] [address], [address], 8 12:01:47 glimepiri de 4 mg tablet 2017 018 [facility] [address], [address], 8 12:01:47 lisinopri l 20 mg tablet 2017 018 [facility] [address] [place], [address], 8 12:02:45 hydrochlo rothiazid e 12.5 mg capsule 2017 018 [facility] [address], [address], 8 12:02:45 Viagra 100 mg tablet 2017 018 [facility] [address] [place] [address], [place], [id number], 8 12:03:50 glimepiri de 4 mg tablet 2017 018 [facility] [address], [address], 8 16:00:15 lisinopri l 20 mg tablet 2017 018 [facility] [address], [address], 8 16:00:14 metformin 1,000 mg tablet 2017 018 [facility] [address], [address], 8 16:00:14 Viagra 100 mg tablet 2017 018 [facility], [address] [place] [address], [place], [id number], 8 16:02:06 tramadol 50 mg tablet 2017 018 mmanderson [facility] [address], [address], 8 13:07:56 Robaxin 500 mg tablet 2017 018 [facility] [place], [address] [place], [address], 8 13:06:42 Viagra 100 mg tablet 2017 018 [facility], [address], [id number], 8 13:11:29 gabapenti n 300 mg capsule 2017 018 [facility] In [facility], [address] [place], [address], 8 13:09:26 Patient TargetsNo targets recorded. Patient Instructions Encounter Date Encounter Id Patient Instructions Last Modified By Organization Details Last Modified Time 12/10/2017 [id number] back care and preventing injuries: care instructions [email or web address] Not available 12/24/2017 23:19:04 Erection Problems: Care Instructions [email or web address] Not available 12/24/2017 23:19:04 01/30/2018 [id number] Erection Problems: Care Instructions [email or web address] Not available 01/30/2018 18:08:24 03/10/2018 [id number] influenza (flu) vaccine: care instructions [email or web address] Not available 03/10/2018 12:03:08 When You Want to Lose Weight: Care Instructions [email or web address] Not available 03/10/2018 13:04:51 high blood pressure: care instructions mmanderson Not available 03/10/2018 13:04:19 04/09/2018 [id number] sleep apnea: care instructions mmanderson Not available 04/09/2018 11:13:54 type 2 diabetes: care instructions mmanderson Not available 04/09/2018 11:15:47 learning about high blood pressure mmanderson Not available 04/09/2018 11:15:47 asthma in adults: care instructions mmanderson Not available 04/09/2018 11:52:42 Reason for Referral Sleep Study Referral for Exc essive daytime sleepiness - normal night sleep Sleep study referral Reports worsening daytime sleepiness with normal sleep pattern/duration at night Referring Physician: Shantal Cano, Family Medicine, Encounter Date: 01/30/2018 [employer] Referral for S leep apnea Mild Sleep apnea Referring Physician: Shantal Cano, Family Medicine, Encounter Date: 04/09/2018 Results Created Date Observation Date Name Description Value Unit Range Abnormal Flag Note LastModifiedBy Organization Detail LastModifiedTime 01/31/20 18 01/30/2018 HbA1c (hemo globi n A1c), blood HbA1c 8.3 Not Available In-Office Order Internal Use Only DO Not Attach Compendium DO Not Attach Compendium, Do Not Delete/merge, [id number] 01/30/2018 15:51:50 04/01/2004/02/2018 lipid panel , serum cholesterol, total 160 mg/dL <200 normal Not Available [facility] [employer]) [address], [address], 04/02/2018 03:22:38 04/01/2004/02/2018 lipid panel , serum HDL cholesterol 58 mg/dL >40 normal Not Available [facility] [address] [place], [address], 04/02/2018 03:22:38 04/01/2004/02/2018 lipid panel , serum triglyceride s 87 mg/dL <150 normal Not Available [facility] [address] [place] [address], [address], 04/02/2018 03:22:38 04/01/2004/02/2018 lipid panel , serum LDL-choleste rol 84 mg/dL _(jake c) normal Refer ence range : <100 Nirmal able range <100 mg/dL for prima ry preve ntion ; <70 mg/dL for patie nts with CHD or diabe tic patie nts with > or = 2 CHD risk facto rs. LDL-C is now calcu lated using the Tootie juares-Hop kins pop baldwin n, which is a valid ated novel lawrence garcia acy than the Fried maria fernanda equat ion in the estim ation of LDL-C . Tootie juares SS et al. ASCENCION. 2013; 310(1 9): 2061- 2068 (http ://ed ucati on.Qu estDi Rebellion Photonicss. com/f aq/FA Q164) Not Available [address] [address] [place], [address], 04/02/2018 03:22:38 04/01/20 18 04/02/2018 lipid panel , serum chol/HDLC ratio 2.8 (calc ) <5.0 normal Not Available [facility] [address] [address] [place], [address], 04/02/2018 03:22:38 04/01/20 18 04/02/2018 lipid panel , serum non HDL cholesterol 102 mg/dL _(jake c) <130 normal For patie nts with diabe sammie plus 1 major ASCVD risk facto r, treat ing to a non-H DL-C goal of <100 mg/dL (LDL- C of <70 mg/dL ) is consi arield a thera peuti c optio n. Not Available [facility] [address] [address] [place], [address], 04/02/2018 03:22:38 04/01/2004/02/2018 CMP, serum or plasm a glucose 168 mg/dL 65-99 high Fasti ng refer ence inter beena For someo ne witho ut known diabe sammie, a gluco se value >125 mg/dL indic ates that they may have diabe sammie and this shoul d be confi rmed with a follo w-up test. Not Available [address] [address] [place], [address], 04/02/2018 03:22:39 04/01/2004/02/2018 CMP, serum or plasm a urea nitrogen (BUN) 8 mg/dL 7-25 normal Not Available [address] [place], [address], 04/02/2018 03:22:39 04/01/2004/02/2018 CMP, serum or plasm a creatinine 0.70 mg/dL 0.70-1 .33 normal For patie nts >49 years of age, the refer ence limit for Creat inine is appro ximat davonte 13% highe r for peopl e ident ified as Afric an-Am faby n. Not Available [address] [address] [place], [address], 04/02/2018 03:22:39 04/01/20 18 04/02/2018 CMP, serum or plasm a eGFR non-afr. paraguayan 104 mL/mi n/1.7 3m2 > or = 60 normal Not Available [address] [address] [place], [address], 04/02/2018 03:22:39 04/01/2004/02/2018 CMP, serum or plasm a eGFR 121 mL/mi n/1.7 3m2 > or = 60 normal Not Available [address], [address], 04/02/2018 03:22:39 04/01/2004/02/2018 CMP, serum or plasm a BUN/creatini ne ratio NOT APPLIC ABLE (calc ) 6-22 Not Available [address] [address] [place], [address], 04/02/2018 03:22:39 04/01/2004/02/2018 CMP, serum or plasm a sodium 141 mmol/ L 135-14 6 normal Not Available [address] [address] [place], [address], 04/02/2018 03:22:39 04/01/2004/02/2018 CMP, serum or plasm a potassium 4.1 mmol/ L 3.5-5. 3 normal Not Available [facility] [address] [address] [place], [address], 04/02/2018 03:22:39 04/01/2004/02/2018 CMP, serum or plasm a chloride 105 mmol/ L 98-110 normal Not Available [facility] [address] [address] [place], [address], 04/02/2018 03:22:39 04/01/20 18 04/02/2018 CMP, serum or plasm a carbon dioxide 26 mmol/ L 20-32 normal Not Available [address], [address], 04/02/2018 03:22:39 04/01/20 18 04/02/2018 CMP, serum or plasm a calcium 9.8 mg/dL 8.6-10 .3 normal Not Available [address], [address], 04/02/2018 03:22:39 04/01/20 18 04/02/2018 CMP, serum or plasm a protein, total 7.6 g/dL 6.1-8. 1 normal Not Available [address], [address], 04/02/2018 03:22:39 04/01/20 18 04/02/2018 CMP, serum or plasm a albumin 4.7 g/dL 3.6-5. 1 normal Not Available [address], [address], 04/02/2018 03:22:39 04/01/20 18 04/02/2018 CMP, serum or plasm a globulin 2.9 g/dL_ (calc ) 1.9-3. 7 normal Not Available [address], [address], 04/02/2018 03:22:39 04/01/20 18 04/02/2018 CMP, serum or plasm a albumin/glob ulin ratio 1.6 (calc ) 1.0-2. 5 normal Not Available [address], [address], 04/02/2018 03:22:39 04/01/20 18 04/02/2018 CMP, serum or plasm a bilirubin, total 0.5 mg/dL 0.2-1. 2 normal Not Available [address] [place], [address], 04/02/2018 03:22:39 04/01/20 18 04/02/2018 CMP, serum or plasm a alkaline phosphatase 95 U/L 40-115 normal Not Available [facility] [address], [address], 04/02/2018 03:22:39 04/01/20 18 04/02/2018 CMP, serum or plasm a AST 28 U/L 10-35 normal Not Available [address], [address], 04/02/2018 03:22:39 04/01/2004/02/2018 CMP, serum or plasm a ALT 31 U/L 9-46 normal Not Available [address], [address], 04/02/2018 03:22:39 04/01/2004/02/2018 CBC w/ auto diff white blood cell count 5.5 thous and/u L 3.8-10 .8 normal Not Available [address], [address], 04/02/2018 02:00:15 04/01/20 18 04/02/2018 CBC w/ auto diff red blood cell count 5.42 prince on/uL 4.20-5 .80 normal Not Available [address], [address], 04/02/2018 02:00:15 04/01/20 18 04/02/2018 CBC w/ auto diff hemoglobin 16.1 g/dL 13.2-1 7.1 normal Not Available [address], [address], 04/02/2018 02:00:15 04/01/20 18 04/02/2018 CBC w/ auto diff hematocrit 46.8 % 38.5-5 0.0 normal Not Available [address] [place], [address], 04/02/2018 02:00:15 04/01/20 18 04/02/2018 CBC w/ auto diff MCV 86.3 fL 80.0-1 00.0 normal Not Available [address], [address], 04/02/2018 02:00:15 04/01/20 18 04/02/2018 CBC w/ auto diff MCH 29.7 pg 27.0-3 3.0 normal Not Available [address], [address], 04/02/2018 02:00:15 04/01/2004/02/2018 CBC w/ auto diff MCHC 34.4 g/dL 32.0-3 6.0 normal Not Available [address], [address], 04/02/2018 02:00:15 04/01/20 18 04/02/2018 CBC w/ auto diff RDW 13.1 % 11.0-1 5.0 normal Not Available [address], [address], 04/02/2018 02:00:15 04/01/20 18 04/02/2018 CBC w/ auto diff platelet count 189 thous and/u L 140-40 0 normal Not Available [address], [address], 04/02/2018 02:00:15 04/01/20 18 04/02/2018 CBC w/ auto diff MPV 10.3 fL 7.5-12 .5 normal Not Available [address], [address], 04/02/2018 02:00:15 04/01/20 18 04/02/2018 CBC w/ auto diff absolute neutrophils 2954 cells /uL 1500-7 800 normal Not Available [address], [address], 04/02/2018 02:00:15 04/01/20 18 04/02/2018 CBC w/ auto diff absolute lymphocytes 1799 cells /uL 850-39 00 normal Not Available [address] [place], [address], 04/02/2018 02:00:15 04/01/20 18 04/02/2018 CBC w/ auto diff absolute monocytes 567 cells /uL 200-95 0 normal Not Available [address] [address] [place], [address], 04/02/2018 02:00:15 04/01/2004/02/2018 CBC w/ auto diff absolute eosinophils 121 cells /uL 15-500 normal Not Available [address] [place], [address], 04/02/2018 02:00:15 04/01/20 18 04/02/2018 CBC w/ auto diff absolute basophils 61 cells /uL 0-200 normal Not Available [facility] [address] [place], [address], 04/02/2018 02:00:15 04/01/20 18 04/02/2018 CBC w/ auto diff neutrophils 53.7 % normal Not Available [address], [address], 04/02/2018 02:00:15 04/01/2004/02/2018 CBC w/ auto diff lymphocytes 32.7 % normal Not Available [facility] [address] [address] [place], [address], 04/02/2018 02:00:15 04/01/2004/02/2018 CBC w/ auto diff monocytes 10.3 % normal Not Available [facility] [address] [address] [place], [address], 04/02/2018 02:00:15 04/01/2004/02/2018 CBC w/ auto diff eosinophils 2.2 % normal Not Available [address] [address] [place], [address], 04/02/2018 02:00:15 04/01/20 18 04/02/2018 CBC w/ auto diff basophils 1.1 % normal Not Available [facility] [address] [place], [address], 04/02/2018 02:00:15 04/01/20 18 04/02/2018 PSA, serum or plasm a PSA, total 0.7 NG/mL < or = 4.0 normal The total PSA value from this assay syste m is stand ardiz ed again st the WHO stand rachel. The test resul t will be appro ximat davonte 20% lower when kashif red to the equim olar- stand ardiz ed total PSA (Haddad man Coult er). Kashif rison of seria l PSA resul ts shoul d be inter prete d with this fact in mind. This test was perfo rmed using the [employer] chemi lumin escen t metho d. Value s obtai nataly from diffe rent assay metho ds canno t be used inter parker eably . PSA level s, regar dless of value , shoul d not be inter prete d as absol homer evide nce of the prese nce or absen ce of disea se. Not Available [address], [address], 04/02/2018 03:33:20 04/01/2004/02/2018 TSH, serum or plasm a TSH w/reflex to FT4 2.46 mIU/L 0.40-4 .50 normal Not Available [facility] [address], [address], 04/02/2018 03:17:50 04/13/20 18 04/14/2018 iron + total iron- jersey ng capac ity (TIBC ), serum iron, total 75 mcg/d L 50-180 normal Not Available [facility] [place], [address], 04/14/2018 05:11:09 04/13/20 18 04/14/2018 iron + total iron- jersey ng capac ity (TIBC ), serum iron binding capacity 251 mcg/d L_(ca lc) 250-42 5 normal Not Available [address], [address], 04/14/2018 05:11:09 04/13/20 18 04/14/2018 iron + total iron- jersey ng capac ity (TIBC ), serum % saturation 30 %_(ca lc) 15-60 normal Not Available [address], [address], 04/14/2018 05:11:09 04/13/20 18 04/14/2018 BMP, serum or plasm a glucose 224 mg/dL 65-99 high Fasti ng refer ence inter beena For someo ne witho ut known diabe sammie, a gluco se value >125 mg/dL indic ates that they may have diabe sammie and this shoul d be confi rmed with a follo w-up test. Not Available [address], [address], 04/14/2018 05:11:10 04/13/20 18 04/14/2018 BMP, serum or plasm a urea nitrogen (BUN) 12 mg/dL 7-25 normal Not Available [address], [address], 04/14/2018 05:11:10 04/13/20 18 04/14/2018 BMP, serum or plasm a creatinine 0.75 mg/dL 0.70-1 .33 normal For patie nts >49 years of age, the refer ence limit for Creat inine is appro ximat davonte 13% highe r for peopl e ident ified as Afric an-Am faby n. Not Available [address], [address], 04/14/2018 05:11:10 04/13/20 18 04/14/2018 BMP, serum or plasm a eGFR non-afr. paraguayan 101 mL/mi n/1.7 3m2 > or = 60 normal Not Available [address], [address], 04/14/2018 05:11:10 04/13/20 18 04/14/2018 BMP, serum or plasm a eGFR 117 mL/mi n/1.7 3m2 > or = 60 normal Not Available [address], [address], 04/14/2018 05:11:10 04/13/20 18 04/14/2018 BMP, serum or plasm a BUN/creatini ne ratio NOT APPLIC ABLE (calc ) 6-22 Not Available [address], [address], 04/14/2018 05:11:10 04/13/20 18 04/14/2018 BMP, serum or plasm a sodium 137 mmol/ L 135-14 6 normal Not Available [address], [address], 04/14/2018 05:11:10 04/13/20 18 04/14/2018 BMP, serum or plasm a potassium 4.1 mmol/ L 3.5-5. 3 normal Not Available [address], [address], 04/14/2018 05:11:10 04/13/20 18 04/14/2018 BMP, serum or plasm a chloride 101 mmol/ L 98-110 normal Not Available [address], [address], 04/14/2018 05:11:10 04/13/20 18 04/14/2018 BMP, serum or plasm a carbon dioxide 28 mmol/ L 20-32 normal Not Available [address], [address], 04/14/2018 05:11:10 04/13/20 18 04/14/2018 BMP, serum or plasm a calcium 9.7 mg/dL 8.6-10 .3 normal Not Available [facility] [address] [place], [address], 04/14/2018 05:11:10 04/13/20 18 04/14/2018 queenie tin, serum or plasm a ferritin 362 NG/mL 20-380 normal Not Available [facility] [address] [place], [address], 04/14/2018 06:42:48 02/19/20 18 02/11/2018 sleep study , basel ine diagn ostic polys omnog hamzah* No observ ation record ed. [address] [place], [address], 03/27/2018 14:44:07 03/05/20 18 03/04/2018 CT, abdom en + pelvi s, w/ contr ast No observ ation record ed. [facility] (Imaging) [address], [place], [address], 03/23/2018 10:34:27 Result Notes None recorded. Problems Name Problem SNOMED Code Status Onset Date Resolution Date Notes Provider Name and Address Organization Details Recorded Time Sleep apnea 28861241 Active 2017 Mild AYESHA Fofana Attn: Jada lawrence,[address] [place], [address], [place] [facility] 8 11:14:25 Diabetes mellitus 25611389 Active AYESHA Fofana Attn: Jada g,[address] [place], [address], [place] [facility] 6 00:08:43 Hypertensive disorder 73690258 Active AYESHA Fofana Attn: Jada lawrence,[address] [place], [address], [place] [facility] 6 00:04:30 Asthma 231163784 Active AYESHA Fofana Attn: Accountin g,[address] [facility], [place], [address], [place] [facility] 6 00:04:30 Muscle pain 86257150 Active RITIKA FofanaC Attn: Accountin g,[address] [facility], [place], [address], [place] [facility] 6 00:04:30 Essential hypertension 88209881 Active AYESHA Fofana Attn: Accountin g,[address] [facility], [place], [address], [place] [facility] 6 00:04:30 Hyperlipidemia 64939067 AYESHA Keller Attn: Accountin g,[address] [facility], [place], [address], [place] [facility] 6 00:04:30 Chronic pain 68686607 Active AYESHA Fofana Attn: Accountin g,[address] [facility], [place], [address], [place] [facility] 6 00:08:43 Neuropathy due to diabetes mellitus 140665126 AYESHA Keller Attn: Accountin g,[address] [facility], [place], [address], [place] [facility] 6 00:04:30 Impotence Active AYESHA Fofana Attn: Accountin g,[address] 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 Procedures Surgical History Date Name Laterality Status Provider Name and Address Organization Details Recorded Time 06/23/19 03 Arthroscopic Surgery completed Mayuri Domínguez MA [facility] 04/17/2015 12:12:21 06/23/18 93 Back Surgery completed Mayuri Domínguez MA [facility] 04/17/2015 12:12:21 06/23/18 75 Cholecystectomy completed Mayuri Domínguez MA [facility] 04/17/2015 12:12:21 Imaging Results None recorded. Procedure Notes None recorded. Medical Equipment None Reported. Allergies Allergen ID Allergen Name Allergen Category Reaction Reaction Severity Criticality Documentation Date Start Date Code Code System Note Provider Name and Address Organization Details Recorded Time 96627 codeine medicatio n hives Not available Not available 04/17/2015 2670 RxNorm LILIYA Fenton, [facility] 5 12:10:59 Medications Name Sig Start Date Stop Date Status Note LastModified by Organization Details LastModified Time Singulair 10 mg tablet Take 1 tablet every day by oral route in the morning for 30 days. 05/28 completed Not Available Not Available Not Available cyclobenz aprine 10 mg tablet TAKE 1 TABLET BY MOUTH AT BEDTIME FOR MUSCLE SPASMS 09/24 completed Not Available Not Available Not Available Miralax 17 gram/dose oral powder Take 17 g every day by oral route in the morning for 30 days. 05/28 completed Not Available Not Available Not Available atorvasta tin 20 mg tablet TAKE ONE TABLET BY MOUTH AT BEDTIME TO LOWER CHOLESTE ROL active Not Available Not Available No t Available ropinirol e 1 mg tablet active Not Available Not Available Not Available ibuprofen 800 mg tablet Take 1 tablet 3 times a day by oral route as needed. 2015 active Not Available Not Available Not Avai lable hydrocodo ne 5 mg-acetam inophen 325 mg tablet Take 1 tablet twice a day by oral route as needed for 30 days. active Not Available Not Available No t Available lisinopri l 20 mg tablet TAKE ONE TABLET BY MOUTH ONCE DAILY FOR BLOOD PRESSURE active Not Available Not Available No t Available Doc-Q-Lac e 100 mg capsule Take 1 capsule twice a day by oral route as directed for 30 days. 07/25 completed Not Available Not Available Not Available metformin 850 mg tablet TAKE ONE TABLET BY MOUTH TWICE A DAY WITH MORNING AND EVENING MEALS 2014 active Not Available Not Available Not Avhannah young Lanqamarus U-100 Insulin 100 unit/mL subcutane ous solution INJECT 20 UNITS AT BEDTIME FOR DIABETES 01/30 completed Not Available Not Available Not Available tramadol 50 mg tablet Take 1 tablet(s ) 3 times a day by oral route as needed for 30 days. active Not Available Not Available No t Available glimepiri de 2 mg tablet Take 1 tablet every day by oral route. 01/30 completed Not Available Not Available Not Available tamsulosi n 0.4 mg capsule active Not Available Not Available Not Available Robaxin 500 mg tablet Take 2 tablets 3 times a day by oral route. 2017 active Not Available Not Available Not Avai lable hydrocodo ne 7.5 mg-acetam inophen 325 mg tablet active Not Available Not Available Not Available metformin 1,000 mg tablet TAKE ONE TABLET BY MOUTH TWICE A DAY FOR DIABETES active Not Available Not Available No t Available ropinirol e 0.5 mg tablet 05/28 completed Not Available Not Available Not Available glimepiri de 4 mg tablet TAKE ONE TABLET BY MOUTH TWICE A DAY FOR DIABETES active Not Available Not Available No t Available hydrochlo rothiazid e 12.5 mg capsule TAKE 1 CAPSULE BY MOUTH DAILY (FOR FLUID RETENTIO N) active Not Available Not Available No t Available nystatin- triamcino lone 100,000 unit/g-0. 1 % topical cream APPLY TO left forearm 2 TIMES PER DAY IN THE MORNING AND EVENING 2015 active Not Available Not Available Not Avai lable gabapenti n 300 mg capsule TAKE ONE CAPSULE BY MOUTH TWICE A DAY AND MAY TAKE 2 ADDITION AL CAPSULES AT BEDTIME, ONLY IF NEEDED active Not Available Not Available No t Available Alcohol Prep Swabs Apply 1 pad twice a day by topical route before meals for 30 days. 2014 active Not Available Not Available Not Avai lable hydroxyzi ne HCl 25 mg tablet Take 1 tablet 3 times a day by oral route as needed for 30 days. 2015 active Not Available Not Available Not Avai lable Viagra 100 mg tablet TAKE 1 TABLET 1 HOUR PRIOR TO ACTIVITY DIRECTED ,MUST LAST 30 DAYS 2017 active Not Available Not Available Not Avai lable fluticaso ne propionat e 50 mcg/actua tion nasal spray,asya pension USE 2 SPRAYS EACH NOSTRIL AT BEDTIME DIRECTED active Not Available Not Available No t Available naproxen 500 mg tablet Take 1 tablet twice a day by oral route with meals for 30 days. active Not Available Not Available No t Available Ventolin HFA 90 mcg/actua tion aerosol inhaler Inhale 2 puffs every 4 hours PRN for breathin g 2017 active Not Available Not Available Not Avai lable clindamyc in phosphate 1 % topical solution active Not Available Not Available Not Available Benadryl Allergy 25 mg tablet Take 1 tablet twice a day by oral route as needed for 30 days. 09/24 completed Not Available Not Available Not Available cyclobenz aprine 5 mg tablet active Not Available Not Available No t Available Lyrica 50 mg capsule Take 1 capsule 3 times a day by oral route. 12/10 completed Not Available Not Available Not Available hydrochlo rothiazid e 12.5 mg tablet Take 1 tablet every day by oral route in the morning for 30 days. 2014 active Not Available Not Available Not Avai lable OneTouch Delica Lancets 33 gauge active Not Available Not Available Not Available psyllium husk (bulk) 100 % powder Take 3.5 g every day by miscell. route in the morning. 05/28 completed Not Available Not Available Not Available Duexis 800 mg-26.6 mg tablet Take 1 tablet 3 times a day by oral route. 2015 active Dispense Qty: 18. Samples; Pt. advised not to be taken at the same time as ibuprofe n. Not Available Not Available Not Available OneTouch Verio test strips Take 1 strip 3 times a day by miscell. route as directed for 30 days. active Not Available Not Available No t Available BD Insulin Syringe Ultra-Fin e 0.5 mL 31 gauge x 5/16 DIRECTED active Not Available Not Available No t Available Safety Seal Lancets 28 gauge TEST TWO TIMES A DAY DIRECTED 2015 active Not Available Not Available Not Avai lable 1st Tier Unifine Pentips Plus 32 gauge x 5/32 needle USE ONE NEEDLE INTO THE SKIN AT BEDTIME active Not Available Not Available No t Available OneTouch Verio Meter active Not Available Not Available Not Available Basaglar KwikPen U-100 Insulin 100 unit/mL (3 mL) subcutane ous Inject 20 units every day by subcutan eous route at bedtime for 30 days. active Not Available Not Available No t Available Vitals Date Recorded Body height Body mass index (BMI) Body weight Oxygen saturation Oxygen saturation in Arterial blood by Pulse oximetry Heart rate Respiratory rate Systolic And Diastolic Provider Name and Address Organization Details Last Updated DateTime 8 172.72 cm 29.6 kg/m2 90243.5 1 g 98 % 98 % 100 /min 18 /min 120/80 mm[Hg] Mayuri Domínguez [place] [facility] 8 13:01:42 Date Recorded Body height Body mass index (BMI) Body weight Oxygen saturation Oxygen saturation in Arterial blood by Pulse oximetry Heart rate Respiratory rate Systolic And Diastolic Provider Name and Address Organization Details Last Updated DateTime 8 172.72 cm 29.3 kg/m2 61670.3 3 g 98 % 98 % 110 /min 18 /min 120/70 mm[Hg] Mayuri Domínguez MA [facility] 8 15:39:22 Date Recorded Body height Body mass index (BMI) Body weight Oxygen saturation Oxygen saturation in Arterial blood by Pulse oximetry Heart rate Respiratory rate Systolic And Diastolic Provider Name and Address Organization Details Last Updated DateTime 8 172.72 cm 29.3 kg/m2 31634.6 1 g 98 % 98 % 98 /min 18 /min 140/90 mm[Hg] Mayuri Domínguez MA [facility] 8 11:27:50 Date Recorded Body height Body mass index (BMI) Body weight Oxygen saturation Oxygen saturation in Arterial blood by Pulse oximetry Heart rate Respiratory rate Systolic And Diastolic Provider Name and Address Organization Details Last Updated DateTime 8 172.72 cm 29.2 kg/m2 79197.4 5 g 98 % 98 % 104 /min 18 /min 100/70 mm[Hg] Mayuri Domínguez MA [facility] 8 10:59:41 Date Recorded Body height Body mass index (BMI) Body weight Oxygen saturation Oxygen saturation in Arterial blood by Pulse oximetry Heart rate Respiratory rate Systolic And Diastolic Provider Name and Address Organization Details Last Updated DateTime 8 172.72 cm 29.5 kg/m2 37580.2 g 98 % 98 % 88 /min 18 /min 110/80 mm[Hg] AYESHA Fofana Attn: Jada lawrence,[address] [place], [address], [facility] 8 15:34:04 Social History Question Answer Notes LastModified by Organizat ion Details LastModified Time Tobacco Smoking Status Never Smoker Mayuri Domínguez MA null, [facility] 04/17/2015 12:10:59 Which Illicit Or Recreational Drugs Have You Used? None Information not available 09/26/2017 What Was The Date Of Your Most Recent Tobacco Screening? 09/26/2017 Information not available 01/14/2019 Difficulty Reading? No Wear Glasses (see Double From A Far) Information not available 08/29/2015 How Much Tobacco Do You Smoke? No [email or web address] Information not available 04/17/2015 Difficulty Watching TV? Yes Information not available 08/29/2015 Sex: Unknown Functional Status Question Answer Note LastModified by Organization D etails LastModified Time What is your level of alcohol consumption? None Information not available 09/26/2017 Difficulty driving at night? Yes Information not available 08/29/2015 Mental Status None recorded. Family History Nothing Reported. Medical History Condition Response Coronary Artery Disease N Other N Atrial Fibrillation N High Blood Pressure Y Depression N COPD N Blood Clots N Anxiety Disorder N Muscle, Joint, or Bone Problems Y Acid Reflux (GERD) N Cancer N Stroke N Headaches N Kidney or Bladder Problems N Skin Problems N Asthma Y Allergies N Hepatitis N High Cholesterol N Liver Disease N Thyroid Problems N GI Problems N Anemia N Heart Attack (AK) N Diabetes Y Seizures/Epilepsy N Hypertension Y Osteoporosis N Heart Failure N Immunizations Vaccine Type Date Status Note Provider Nam e and Address Organization Details Recorded Time Influenza, split virus, quadrivalent, preservative 6 completed Not Available [facility] 07/10/2019 02:32:32 Influenza, split virus, quadrivalent, PF 8 completed Not Available [facility] 07/10/2019 02:40:52 Influenza, split virus, quadrivalent, preservative 5 completed Not Available [facility] 07/10/2019 02:39:22 Past Encounters Encounter ID Performer Location Encounter Start Date Encounter Closed Date Diagnosis/Indication Diagnosis SNOMED-CT Code Diagnosis ICD10 Code Diagnosis Note [id number] Rip Beaulieu MD [address] [address] 04/17/2015 11:55:35 04/18/2015 09:37:53 Diabetes mellitus 80534087 E11.9 FS 516. NAD. Refilled meds and increased metformin Muscle pain 59617613 M79 .1 As per HPI shoulders, neck, and back...chr onic Active or passive immunization 471169992 Z23 [id number] AYESHA Fofana [address] [address] 05/29/2015 16:17:39 05/30/2015 12:16:10 Diabetes mellitus 96119031 E11.9 FS 165... Pt check BS BID...cont inue therapy... labs today w/ follow-up Asthma 226528169 J45.90 9 Muscle pain 67456300 M79 .1 As per HPI shoulders, neck, and back...chr onic...con tinue pain mgmt Essential hypertension 23774168 I10 140/84... reinforcem ent r/t medication adherence, limiting sodium, and increasing physical activity. Adult heal th examination 096150513 Z00.00 [id number] AYESHA Fofana [address] [address] 05/30/2015 10:29:41 06/08/2015 20:17:00 Adult health examination 059755347 Z00.00 [id number] AYESHA Fofana [address] [address] 06/19/2015 11:13:55 06/19/2015 15:10:40 Essential hypertension 26077175 I10 140/84... reinforcem ent r/t medication adherence, limiting sodium, and increasing physical activity. Diabetes mellitus 614686 09 E11.9 Postprandi al FS 366... Pt check BS BID...cont inue therapy... labs today w/ follow-up Hyperlipidemia 36219131 E78.5 UMX=662... discussed starting therapy, with close FU. Chronic pain 49799237 G8 9.29 Back and neck...Rep orts relief...O k to continue therapy. Screening for malignant neoplasm of colon 661707016 Z12.11 [id number] Rip Beaulieu MD [address] [address] 08/01/2015 11:13:51 08/03/2015 10:02:53 Diabetes mellitus 96178911 E11.9 BP=689...c ontinue therapy. Home fasting sugars in am per pt. meter 170-280... discussed bedtime insulin. Pt agrees to POC. Essential hypertension 39889654 I10 120/80 today. NAD...cont inue therapy. Diabetic c are education 676212893 Z46.81 Instructed pt. on new insulin regimen of lantus with demonstrat ion using stomach model and had pt. return demonstrat ion. Pt.able to verbalized understand ing on bedtime insulin regimen to include potential adverse effects, including S/S of hypoglycem ia. [id number] Rip Beaulieu MD [address] [address] 08/15/2015 10:47:56 08/18/2015 12:13:11 Diabetes mellitus 42390170 E11.9 Continue current therapy. Last A1C 10.4 will repeat in August/next visit Assisted pt. to make an appt. w. Dr. Barajas for 08/29/15 @ 1pm Essential hypertension 83613181 I10 130/80 today. NAD...cont inue therapy. Neuropathy due to diabetes mellitus 936298094 E11.41 Bilateral feet... Impotence 123109181 N52. 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 Reiterated action plan Hyperlipidemia 57892059 E78.5 Continue therapy Essential hypertension 90399381 I10 116/80. NAD...cont inue therapy. He is doing well today. Colonoscop y scheduled for 10/19. Uncontroll ed type 2 diabetes mellitus 050375932 E11.65 KF=182 Repeat A1C today [id number] AYESHA Fofana [address] [address] 11/15/2015 11:42:15 11/21/2015 17:02:59 Essential hypertension 52092809 I10 160/80 NAD...cont inue therapy. No meds yet today. Reiterated medication regimen Q AM Diabetes mellitus 529910 09 E11.9 FS= 261...Cont inue current therapy. Last A1C 8.1 down from 10.4 Noncomplia nce with treatment 6959463 Z91.19 Per pt. -Occasiona l missed med dose -Not following diabetic diet Chronic pain 44576884 G8 9.29 Back and neck...Rep orts relief...O k to continue therapy. Obtain consent for records to determine prior therapy/im aging and refer appropriat davonte [id number] AYESHA Fofana [place] [address] 3 11/24/2015 10:42:16 11/27/2015 16:23:04 Essential hypertension 82066709 I10 110/80 NAD...cont inue therapy. Diabetes mellitus 152727 E11.9 FS= 192...Cont inue current therapy. Last A1C 8.1 down from 10.4 Chronic pain 54562696 G8 9.29 Back and neck...Rep orts relief...O k to continue therapy. Obtain consent for records to determine prior therapy/im aging and refer appropriat davonte [id number] Rip Beaulieu MD [place] [address] 3 12/26/2015 10:34:57 01/03/2016 15:18:03 Essential hypertension 60186297 I10 130/70...N AD...karuan nue therapy. Diabetes mellitus 482154 E11.9 FS= 211...Cont inue current therapy. Last A1C 8.1 down from 10.4 Chronic pain 54199659 G8 9.29 Back and neck...Rep orts relief...O k to continue therapy. Obtain consent for records to determine prior therapy/im aging and refer appropriat davonte Contact dermatitis [address] forearm. Plaque...u nknown etitolgy.. .fungal appearance . [id number] AYESHA Fofana [place] [address] 02/02/2016 10:35:06 02/02/2016 11:43:47 Essential hypertension 87864965 I10 140/60...N AD...karuna nue therapy. Diabetes mellitus 032793 09 E11.9 Stable on current therapy. post prandial XN=984. Last A1C 8.1. -Repeat A1C today Chronic pain 19239815 G8 9.29 Back and neck...Rep orts relief...O k to continue therapy. Pain mgmt referral pending. Consent to secure records from Dr. Dean in [place] -Plan is continue pain mgmt until he can get into PM clinic [id number] Shantal Cano [address] [address] 03/05/2016 10:41:56 03/05/2016 13:37:50 Diabetes mellitus 65487682 E11.9 Stable on current therapy. post prandial SE=719. Last A1C 9.1. -Repeat A1C today Chronic pain 35724941 G8 9.29 Back and neck...Rep orts relief...O k to continue therapy. Pain mgmt referral pending. Consent to secure records from Dr. Dean in [place] -Plan is continue pain mgmt until he can get into PM clinic Hyperlipidemia 37425559 E78.5 No med for 1 month due to finances. Refill and routine FU Impotence 282135333 N52. 8 [id number] Shantal Harrah, [address] [address] 04/04/2016 10:00:52 04/09/2016 00:10:41 Diabetes mellitus 56692729 E11.9 Stable on current therapy. post prandial NN=144. Last A1C 9.1. Continue current treat with reinforcem ent r/t diet adherence Chronic pain 19015289 G8 9.29 Has an an appt. with Dr. [facility] on 04/18/16 hoping to explore alternativ e pain mgmt. modality, so that he can wean off of narcotics. Consent to secure records from Dr. Dean in [place] (previous Orthopedic MD) -Plan is continue pain mgmt until he can get into PM clinic Impotence 853625567 N52. 8 Stable with current therapy. Denies adverse effects Active or passive immunization 002835467 Z23 Tolerated well. VIS given. [id number] AYESHA Fofana [address] [address] 05/02/2016 11:37:58 05/02/2016 14:30:30 Diabetes mellitus 81090026 E11.9 Stable on current therapy. post prandial OX=050. Last A1C 9.1. Repeat A1C ordered today. Chronic low back pain 27 3292203 M54.5 Continue current therapy. Discussed exercise for strengthen ing. Hyperlipidemia 91640516 E78.5 Continue Screening for malignant neoplasm of colon 878372694 Z12.11 He has failed to get previous two. Constipation 69833224 K5 9.00 intermitte nt. [id number] Rip Beaulieu MD [place] [address] 3 05/31/2016 10:47:54 06/10/2016 01:22:43 Diabetes mellitus 89163772 E11.9 UU=796. Stable on current therapy. Last A1C 8.3 down from 9.1. Chronic pain 86086153 G8 9.29 Low back...Pretty n is continue pain mgmt until he can get into PM clinic Screening for disorder 511593286 Z13.9 Routine labs today Screening for malignant neoplasm of colon 627643406 Z12.11 He has failed to get previous two. [id number] Rip Beaulieu MD [address] [address] 06/26/2016 12:01:34 07/03/2016 12:27:28 Uncontrolled type 2 diabetes mellitus 477083070 E11.65 RE=834 Repeat A1C today Essential hypertension 08374887 I10 110/70-sta ble. Continue. medication Chronic low back pain 27 3375567 M54.5 Continue current therapy. Discussed exercise for strengthen ing. Reduced libido 9633200 R 68.82 Screening for disorder 107412092 Z13.9 Routine labs today [id number] Rip Beaulieu MD [address] [address] 07/12/2016 09:57:06 07/17/2016 12:39:10 Essential hypertension 85353479 I10 110/70-sta ble. Continue. medication Uncontroll ed type 2 diabetes mellitus 638714798 E11.65 UA=437 Repeat A1C today Reduced libido 3161705 R 68.82 Screening for disorder 984867971 Z13.9 Routine labs today [id number] Rip Beaulieu MD [address] [address] 07/25/2016 14:57:15 07/26/2016 17:56:34 Diabetes mellitus 77334974 E11.9 PD=859. Stable on current therapy. Last A1C 8.3 down from 9.1. Chronic low back pain 27 8826082 M54.5 Continue current therapy. Discussed exercise for strengthen ing. Drug-induc ed constipation 24562556 K59.03 Decreased pain medication with goal of weaning. Also discussed increasing fiber and drinking 8-8oz glasses of water daily. [id number] Rip Beaulieu MD [address] [address] 08/22/2016 09:50:57 08/22/2016 12:43:34 Essential hypertension 89953654 I10 100/70-sta ble. Continue. medication Hyperlipidemia 55741639 E78.5 Continue Uncontroll ed type 2 diabetes mellitus 898657341 E11.65 EU=547 Last A1C 8.0 Chronic pain 02743796 G8 9.29 Low back...Pretty n is continue pain mgmt until he can get into PM clinic Depression screening 171 540324 Z13.89 PHQ9=6...Aileen guzmán was just told that he has a cyst on his left kidney and admits to being a little worried about prognosis. Discussed coping skills and he appears to have good family support. [id number] Rip Beaulieu MD [address] [address] 09/24/2016 11:33:43 09/25/2016 09:40:52 Diabetes mellitus 74256261 E11.9 JU=691. Stable on current therapy. Last A1C 8.0 down from 9.1. Drug-induc ed constipation 74371600 K59.03 NArcotics D/C 1 month ago. Also discussed increasing fiber and drinking 8-8oz glasses of water daily. Hyperlipidemia 12565106 E78.5 Continue Chronic pain 34428092 G8 9.29 Low back...Pretty n is continue pain mgmt until he can get into PM clinic [id number] Rip Beaulieu MD [address] [address] 11/01/2016 13:33:59 11/01/2016 15:00:04 Diabetes mellitus 63206244 E11.9 JZ=187. Stable on current therapy. Last A1C 8.0 down from 9.1. Chronic pain 64678401 G8 9.29 Low back...Pretty n is continue pain mgmt until he can get into PM clinic Chronic rhinitis 8112033 6 J31.0 [id number] Rip Beaulieu MD [address] [address] 02/04/2017 10:28:12 02/04/2017 12:09:10 Diabetes mellitus 66290921 E11.9 ZS=000, post prandial. Stable on current therapy. Last A1C 8.0 down from 9.1. Essential hypertension 79826223 I10 120/70, stable. 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 using a cane that he borrowed from his friend. [id number] Rip Beaulieu MD [address] [address] 05/28/2017 09:48:21 06/02/2017 08:20:59 Drug-induced constipation 58662853 K59.03 Chronic rhinitis 8128407 6 J31.0 Diabetes mellitus 694681 09 E11.9 Chronic pain 93488812 G8 9.29 Chronic/st able, refills today Screening colonoscopy 44 9741729 Z12.11 Neuropathy due to diabetes mellitus 922449676 E11.41 Hyperlipidemia 07918509 E78.5 Continue Essential hypertension 86373210 I10 120/70, stable. Refilled medication Impotence 492159457 N52. 9 [id number] Rip Beaulieu MD [address] [address] 07/25/2017 09:39:08 07/25/2017 10:54:27 Neuropathy 794528279 G62.9 Worse at night. Increased medication to 2-300mg caps at HS PRN Chronic pain 37417723 G8 9.29 Chronic/st able, refills today Diabetes mellitus 324906 09 E11.9 Essential hypertension 17758443 I10 120/70, stable. Refilled medication Hyperlipidemia 71745103 E78.5 Continue Allergic rhinitis 083043 04 J30.9 exacerbati on. Discussed symptom treatment. [id number] Rip Beaulieu MD [address] [address] 08/26/2017 09:40:26 10/24/2017 13:02:57 Depression screening 661160924 Z13.89 Negative Neuropathy 860024260 G62 .9 Stable, continue current therapy Chronic pain 82989269 G8 9.29 Chronic/st able, refills today Diabetes mellitus 184516 09 E11.9 Sytable, continue current therapy. Essential hypertension 32521037 I10 130/80, stable. No refills needed. Continue current medication s which are working well for him. Hyperlipidemia 16952873 E78.5 Continue Impotence 630631011 N52. 9 Good symptom control with PRN use. [id number] Lion Barajas MD [facility] [address] [place] [address] 09/26/2017 10:36:27 09/29/2017 10:56:47 Macular edema due to diabetes mellitus 913661127 E11.3213 Nuclear sc lerotic cataract 899715489 H25.13 [id number] Rip Beaulieu MD [address] [address] 10/31/2017 15:08:19 11/13/2017 10:49:00 Neuropathy due to diabetes mellitus 994516423 E11.41 D/C Gabapentin . Discussed trial of lyrica with close FU. Last A1C 8.0, discussed goal of <7.0 will also help with symptom control. Essential hypertension 14187879 I10 100/70, stable. No refills needed. Continue current medication s which are working well for him. Diabetes mellitus 615305 09 E11.9 Last a1c 8.0 up from 6.3... discussed goal of <7.0 attained through medication and adherence to ADA diet. Continue current therapy, no refills needed today. Overweight 623276244 E66 .3 BMI 29.4, discussed increasing physical activity as tolerated. [id number] Rip Beaulieu MD [address] [address] 12/10/2017 12:39:55 12/25/2017 19:47:11 Chronic low back pain 225798760 M54.5 Continue current therapy. Discussed exercise for strengthen ing. Neuropathy 940062148 G62 .9 Stable, continue current therapy Impotence 416825206 N52. 9 Good symptom control with PRN use. Diabetes mellitus 051548 09 E11.9 Last a1c 8.0 up from 6.3... discussed goal of <7.0 attained through medication and adherence to ADA diet. Continue current therapy, no refills needed today. [id number] Rip Beaulieu MD [address] [address] 01/30/2018 15:24:08 02/02/2018 09:16:20 Impotence 465418967 N52.9 Good symptom control with PRN use. Uncontroll ed type 2 diabetes mellitus 260663670 E11.65 ZS=387 Last A1C 8.0, discussed continuing to follow ADA diet and increase physical activity to achieve a goal A1C of 7.5 Excessive daytime sleepiness - normal night sleep 583700873 G47.19 Normal nighttime sleep. Discussed sleep referral/w orkup [id number] Rip Beaulieu MD [address] [address] 03/10/2018 10:41:41 03/12/2018 10:26:02 Uncontrolled type 2 diabetes mellitus 927751204 E11.65 OY=370 Last A1C 8.3, postprandi al fingerstic k 202. Discussed continuing to follow ADA diet and increase physical activity to achieve a goal A1C of 7.5 Impotence 390771743 N52. 9 Good symptom control with PRN use. Essential hypertension 08145691 I10 140/90, stable. No refills needed. Continue current medication s which are working well for him. Administra tion of influenza vaccine 82734420 Z23 Informed consent obtained and VIS reviewed. Body mass index 25-29 - overweight 667492897 Z68.29 29.3 Screening for malignant neoplasm of prostate 393766097 Z12.5 [id number] Rip Beaulieu MD [address] [address] 04/09/2018 10:45:14 04/10/2018 09:41:08 Mild intermittent asthma 927691851 J45.20 -infrequen t PRN inhaler use-Smokes cigars. Discussed that still has nicotine. Sleep apnea 81061305 G47 .30 Chronic sleep disturbanc eSleep study done: Dx mild w/ recommenda tions for titration of CPAPR/o underline uremia and iron deficiency ans recommende d on sleep study report.Dis cussed pulmonolog ist referral for further evaluation Essential hypertension 62636413 I10 100/70, stable. No refills needed. Continue current medication s which are working well for him. Uncontroll ed type 2 diabetes mellitus 016399494 E11.65 OQ=553 Last A1C 8.3, postprandi al fingerstic k 155. Discussed continuing to follow ADA diet and increase physical activity to achieve a goal A1C of <7.5 [id number] Rip Beaulieu MD [address] [address] 05/12/2018 15:03:51 05/26/2018 11:55:49 Uncontrolled type 2 diabetes mellitus 683879196 E11.65 QU=210 Last A1C 8.3, postprandi al fingerstic k 155. Discussed continuing to follow ADA diet and increase physical activity to achieve a goal A1C of <7.5 Essential hypertension 72263908 I10 110/80, stable. No refills needed. Continue current medication s which are working well for him. Health Concerns Section Related Observation LastModified by Organization Detai ls LastModified Time None Recorded Concern Status LastModified by Organization Details LastModified Time None Recorded Advance Directives Directive None Recorded Payers Insurance Date Sequence Insurance Name Policy Number Policy Aparicio Covered Member ID Aparicio Member ID Guarantor Name 05/02/2016 SLIDING FEE SCHEDULE - DISCOUNT Toni Gates 05/16/2018 1 [employer] (MEDICARE REPLACEMENT/AD VANTAGE - HMO) Toni Gates [id number] Toni Gates 06/29/2017 3 [place]PPO) [id number] Toni Gates [id number] Toni Gates 07/22/2016 2 [place] Toni Gates [id number] Toni Gates 08/22/2016 1 [facility]D - CARE MANAGEMENT RESOURCES - LOCAL 5 (PPO) [id number] Toni Gates [id number] Toni Gates 07/22/2016 1 [facility] - DOS PRIOR TO 2020 (MEDICAID REPLACEMENT - HMO) Toni Gates [id number] Toni Gates 06/29/2017 1 [facility] - DOS PRIOR TO 2020 (MEDICAID REPLACEMENT - HMO) Toni Gates [id number] Toni Gates 05/02/2016 SLIDING FEE SCHEDULE - DISCOUNT Toni Gates 05/09/2018 2 [place] Toni Gates [id number] Toni Gates 08/25/2015 1 [place] [id number] Toni Gates [id number] Toni Gates 02/02/2018 3 *SELF PAY* Dunia Gates 01/28/2016 PAYMENT PLAN Toni Gates 04/13/2016 1 *SELF PAY* Dunia Gates 06/29/2017 2 [place] [id number] Toni Gates [id number] Toni Gates 04/13/2016 1 *SELF PAY* Dunia Gates 09/08/2017 1 [place] [facility] Toni Gates [id number] Toni Gates 05/02/2016 1 [facility] - CARE MANAGEMENT RESOURCES - LOCAL 655 (PPO) Toni Gates [id number] Toni Gates 07/22/2016 2 [facility] - CARE MANAGEMENT RESOURCES - LOCAL 655 (PPO) [id number] Toni Gates [id number] Toni Gates 02/06/2018 [place] Toni Gates [id number] Toni Gates 05/09/2018 [place]: [facility] Toni Gates [id number] Toni Gates 02/06/2018 2 [place] WHEN MEDICARE OR MEDICARE REPLACEMENT PRIMARY) Toni Gates [id number] Toni Gates 09/08/2017 [place] [facility] Toni Gates [id number] Toni Gates 02/06/2018 3 [place]STIT[place]AL [place] Toni Gates [id number] Toni Gates Notes Date Note Type Note Provider Name and Address Organization Details Recorded Time 01/30/2018 text/html Sleep ProblemsRe ported bypatient.General Sleep:excessive sleepiness during the day (daytime somnolence) Onset/Timing:progressi vely worse over last 3months Severity:limits daily activities Pain disturbing sleep:lower back Prescribed sleep medications:not taking medication to help sleep Reports excessive daytime sleepiness. AYESHA Fofana Attn: Accounting,[address] [place], [address], [facility] 01/30/2018 18:09:22 03/10/2018 text/html Diabetes F/URepo rted bypatient.Review finger sticks:fastins Labs:last A1C result: 8.3 Context:normal range of home blood sugars (in the low 100s); seeing eye doctor regularly; checking feet regularly Associated Symptoms:no weight gain; no weight loss; no dizziness; no sweats; no headaches; no confusion; no increased thirst; no increased appetite; no increased urination; no blurred vision; no numbness of feet; no calluses on feetHypertension F/UReported bypatient.Associated Symptoms:no dizziness; no lightheadedness; no chest pain; no shortness of breath; no palpitations; no edema; no calf pain with exertion Lifestyle:limiting/gayathri iding salt;not exercising regularly Medications:taking medications as directed; no side effects from medication AYESHA Fofana Attn: Accounting[address] [facility], [place], [address], [facility] [place] 03/10/2018 13:05:18 04/09/2018 text/html Discuss sleep st udy results AYESHA Fofana Attn: Accounting[address] [place], [address], [facility] [place] 04/09/2018 11:55:14 05/12/2018 text/html Diabetes F/URepo rted bypatient.Review finger sticks:fastin Labs:last A1C result: 8.3; down from 8.0 Context:normal range of home blood sugars (in the low 100s); seeing eye doctor regularly; checking feet regularly Associated Symptoms:no weight gain; no weight loss; no dizziness; no sweats; no headaches; no confusion; no increased thirst; no increased appetite; no increased urination; no blurred vision; no numbness of feet; no calluses on feet Seen by Dr. Hernandez at [facility] to plan removal of renal tumor. AYESHA Fofana Attn: Accounting[address] [facility], [place], [address], [facility] 05/25/2018 09:14:22
--- OUTSIDE RECORDS SUMMARY | 2024-12-24 00:04 | XMS_ITS | Encounter Summary ---
Author Organization [facility] Healthcare Address [address] [place] [address] Care Team Providers Care Odd Piece Checker Name Role Phone Sushma Rg Primary Care Provider [phone] Essence Mccloud MD Unavailable To Dominguez MD Unavailable [phone] Reason for Visit * Auth/Cert (Routine) Specialty Diagnoses / Procedures Referred By Rahul foote Referred To Contact Diagnoses Encounter for screening colonoscopy History of colonic polyps Encounter for screening colonoscopy [Z12.11] History of colonic polyps [Z86.0100] Procedures [place] COLONOSCOPY FLX DX W/COLLJ SPEC WHEN PFRMD COLONOSCOPY Referral ID Status Reason Start Date Expiration Date Visits Re quested Visits Authorized [id number] 1 1 Encounter Details Date Type Department Care Team (Late st Contact Info) Description 11/16/2024 Hospital Encounter [facility] [address] [place] [address] Margi Vee MD [address] [place] [address] Social History Tobacco Use Types Packs/Day Years [...] on file Legal Sex 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 Gender Identity Not on file Sexual Orientation Not on file Occupation Industry Job Start Date Job End Date Disabled Not on file Not on file Not on file documented as of this encounter Plan of Treatment Not on file documented as of this encounter Visit Diagnoses Diagnosis Encounter for screening colonoscopy History of colonic polyps Personal history of colonic polyps documented in this encounter Admitting Diagnoses Diagnosis Encounter for screening colonoscopy History of colonic polyps Personal history of colonic polyps documented in this encounter Care Teams Odd Piece Checker Relationship Specialty Start Date End Date Sushma Rg PA [address] [facility] [address] [place] [address] PCP - General Internal Medicine 08/17/21 Essence Mccloud MD [address] [facility] [address] [place] [address] Consulting Physician Neurology 11/04/22 To Dominguez MD [address] [place] [address] [address] [place] [address] Consulting Physician Neurology 11/24/23 documented as of this encounter
--- NOTE | 2024-12-24 00:38 | PC.NURSE ---
pt rolled for edp torossian to assess wound. wound covered with same mepilex
--- NOTE | 2024-12-24 01:02 | ED_ITS ---
HPI - Wound/Laceration General Chief Complaint: Wound/Laceration Stated Complaint: Infected wound Time Seen by Provider: 12/23/24 23:57 History of Present Illness HPI narrative: 64-year-old male presenting from intermediate facility for evaluating his sacral wounds. Patient is bedbound and has a history of coronary disease, hypertension, hyperlipidemia, diabetes. He is at [facility]. Per EMS staff they are not sure how long his sacral ulcers and bedsores are present but on chart review it appears these wounds are chronic and have been treated since September and October. Patient is not any acute distress and has no complaints. He is awake alert oriented has no complaints at this time. Was seen here recently for an indwelling Daniels catheter exchange. Wearing pressure boots on bilateral lower extremities. Denies any fever, chills, back pain, new neuropathy or weakness. He does state that the nursing staff did not change his sacral dressings often. No reported drainage or bleeding. Related Data Home Medications ?Medication ?Instructions ?Recorded ?Confirmed ?Last Taken ?Type aspirin 81 mg tablet,delayed 81 mg PO DAILY 06/01/19 01/02/21 Unknown History release cyclobenzaprine 10 mg tablet 10 mg PO ONCE PRN 06/01/19 01/02/21 Unknown History gabapentin 300 mg capsule 600 mg PO BID 06/01/19 01/02/21 Unknown History metformin 1,000 mg tablet 1,000 mg PO BID 06/01/19 01/02/21 Unknown History insulin glargine 100 unit/mL (3 25 unit subcut BID 01/05/20 01/02/21 Unknown History mL) subcutaneous pen (Lantus Solostar U-100 Insulin) lisinopril 20 mg tablet 20 mg PO DAILY 01/02/21 01/02/21 Unknown History Allergies Allergy/AdvReac Type Severity Reaction Status Date / Time codeine Allergy Unknown Unknown Verified 12/16/24 18:40 Review of Systems Review of Systems: As [facility] Past Medical History Medical History History of left heart catheterization Elevated lipids Diabetes Asthma Arthritis Surgical History Surgical History History of lumbosacral spine surgery Family History Family History Mother Family history of primary malignant neoplasm of liver, Onset Age: 69 Social History Social History Smoking status: Current every day smoker Exam Narrative: GENERAL: Chronically ill-appearing, thin, non-toxic, in no acute distress. HEAD: Normocephalic, atraumatic. RESPIRATORY: Airway patent, respirations nonlabored. CARDIOVASCULAR: Regular rate and rhythm without murmurs, rubs, or gallops. ABDOMINAL: Soft, no appreciable tenderness, nondistended. Normoactive BS. Suprapubic catheter in place in lower abdomen. No drainage from stoma. MUSCULOSKELETAL: No gross deformities. SKIN: Sacral wounds without any bleeding, purulent drainage or signs of infection. Granulation tissue in the wound margins, no exposed sacrum or bones. No pain with palpation, no purulence or fluctuance. NEURO: A&O X3. Speech clear. No new deficits. PSYCHIATRIC: Appropriate mood and affect. Course Vital Signs Vital signs: Vital Signs Temperature 37.2 C 12/23/24 21:22 Pulse Rate 90 12/23/24 21:22 Respiratory Rate 25 H 12/23/24 21:22 Blood Pressure 104/70 12/23/24 21:22 Pulse Oximetry 99 12/23/24 21:22 Oxygen Delivery Room Air 12/23/24 21:22 Temperature 37.2 C 12/23/24 21:22 Pulse Rate 79 12/24/24 05:01 Respiratory Rate 18 12/24/24 05:01 Blood Pressure 128/85 12/24/24 05:00 Pulse Oximetry 100 12/24/24 05:01 Oxygen Delivery Room Air 12/23/24 21:22 MDM - Wound/Laceration MDM Narrative Medical decision making narrative: 64-year-old male presenting from intermediate facility for evaluating his sacral wounds. Patient is bedbound and has a history of coronary disease, hypertension, hyperlipidemia, diabetes. He is at [facility]. Per EMS staff they are not sure how long his sacral ulcers and bedsores are present but on chart review it appears these wounds are chronic and have been treated since September and October. Patient is not any acute distress and has no complaints. He is awake alert oriented has no complaints at this time. Was seen here recently for an indwelling Daniels catheter exchange. Wearing pressure boots on bilateral lower extremities. Denies any fever, chills, back pain, new neuropathy or weakness. He does state that the nursing staff did not change his sacral dressings often. No reported drainage or bleeding. His sacral wounds appear well healing, no signs of any purulent drainage or foul odor, no bleeding. Good granulation tissue on the wound margins, no foreign bodies or exposed bone. He is afebrile with normal vital signs without any tachycardia, fever or significant blood pressure concerns and he is asymptomatic. No signs of infection his wound and he can be safely discharged back to his skilled nurse facility with wound care instructions. Patient comfortable with the plan as he has no concerns or symptoms. Nursing report was given to his care facility and transportation was arranged BLS. Discharge Plan Discharge Clinical Impression: Chronic ulcer of sacral region Patient Disposition: Home Condition: Stable Instructions: Antibiotic Form, Chronic Wounds (ED) Additional Instructions: Your chronic sacral wounds are well healing and do not appear infected. Follow- up with regular doctors and have your nursing staff change the dressings on them daily. Have the nursing staff change of positions frequently to avoid further pressure ulcerations on the sacral region. If you start developing purulent drainage, fevers, feeling unwell, nauseousness, abdominal pain or any developing symptoms follow-up with regular primary care provider or return to the emergency department. Patient Language: German Prescriptions: No Action metformin 1,000 mg tablet 1,000 mg PO BID cyclobenzaprine 10 mg tablet 10 mg PO ONCE PRN gabapentin 300 mg capsule 600 mg PO BID aspirin 81 mg tablet,delayed release (DR/EC) 81 mg PO DAILY pravastatin 10 mg tablet 10 mg PO DAILY Qty: 30 5RF Lantus Solostar U-100 Insulin 100 unit/mL (3 mL) insulin pen 25 unit SUB-Q BID lisinopril 20 mg tablet 20 mg PO DAILY cephalexin 500 mg capsule 500 mg PO Q6H 7 Days Qty: 28 0RF cephalexin 500 mg capsule 500 mg PO Q6H 7 Days Qty: 28 0RF Follow-up/Referrals: UNKNOWN,DOCTOR [Primary Care Provider] - Time of Disposition: 00:49
--- NOTE | 2024-12-24 07:10 | PC.NURSE ---
report to steffen hall
--- NOTE | 2024-12-24 07:12 | PC.NURSE ---
meghana at [facility] aware of patient return - nurse report given
== END 2024-12-24 07:25 ==
PROVIDERS: Emergency Provider Student in an Organized Health Care Education/Training Program
DX: L89.159 Pressure ulcer of sacral region, unspecified stage (principal); I25.10 Atherosclerotic heart disease of native coronary artery without angina pectoris; E78.5 Hyperlipidemia, unspecified; E11.9 Type 2 diabetes mellitus without complications; I10 Essential (primary) hypertension; F17.200 Nicotine dependence, unspecified, uncomplicated
CPT/HCPCS: 99282

== ENCOUNTER 2025-02-01 06:15 | Emergency (ER) | payer MEDICARE, SELFPAY ==
[2025-02-01 06:18] VITALS: BP 128/83; PULSE 87; RESP 16; TEMP 36.6; O2SAT 100
--- NOTE | 2025-02-01 06:24 | ED_ITS ---
HPI - Male Genitourinary General Chief complaint: Urogenital-Male Stated complaint: urinary catheter obstructed Time Seen by Provider: 02/01/25 06:23 History of Present Illness HPI Narrative: 64-year-old male who is a resident at a local rehab in-situ. Bed ridden at baseline with suprapubic catheter that is long indwelling. States he has not been able to urinate and the catheters block per care home that tried to flush it. Presents via EMS. He has no complaints aside from not able to urinate. No pain or back pain, no fever, chills, nausea, vomiting. Is not sure if he has an infection. Related Data Home Medications ?Medication ?Instructions ?Recorded ?Confirmed ?Last Taken ?Type aspirin 81 mg tablet,delayed 81 mg PO DAILY 06/01/19 01/02/21 Unknown History release cyclobenzaprine 10 mg tablet 10 mg PO ONCE PRN 06/01/19 01/02/21 Unknown History gabapentin 300 mg capsule 600 mg PO BID 06/01/19 01/02/21 Unknown History metformin 1,000 mg tablet 1,000 mg PO BID 06/01/19 01/02/21 Unknown History insulin glargine 100 unit/mL (3 25 unit subcut BID 01/05/20 01/02/21 Unknown History mL) subcutaneous pen (Lantus Solostar U-100 Insulin) lisinopril 20 mg tablet 20 mg PO DAILY 01/02/21 01/02/21 Unknown History Allergies Allergy/AdvReac Type Severity Reaction Status Date / Time codeine Allergy Unknown Unknown Verified 12/16/24 18:40 [facility] Past Medical History Medical History History of left heart catheterization Elevated lipids Diabetes Asthma Arthritis Surgical History Surgical History History of lumbosacral spine surgery Family History Family History Mother Family history of primary malignant neoplasm of liver, Onset Age: 69 Social History Social History Smoking status: Current every day smoker Exam Narrative: GENERAL: Chronically ill-appearing, thin, non-toxic, in no acute distress. HEAD: Normocephalic, atraumatic. RESPIRATORY: Airway patent, respirations nonlabored. CARDIOVASCULAR: Regular rate and rhythm without murmurs, rubs, or gallops. ABDOMINAL: Soft, no appreciable tenderness, nondistended. Normoactive BS. Suprapubic catheter in place in lower abdomen. Removed due to obstruction with significant drainage from the stoma site. Relief of patient's symptoms and exchanged without difficulty MUSCULOSKELETAL: No gross deformities. SKIN: Warm, dry, normal color. NEURO: A&O X3. Speech clear. No ataxic movements. PSYCHIATRIC: Appropriate mood and affect. Normal interaction. Course Vital Signs Vital signs: Vital Signs Temperature 36.6 C 02/01/25 06:18 Pulse Rate 87 02/01/25 06:18 Respiratory Rate 16 02/01/25 06:18 Blood Pressure 128/83 02/01/25 06:18 Pulse Oximetry 100 02/01/25 06:18 Oxygen Delivery Room Air 02/01/25 06:18 Temperature 36.6 C 02/01/25 06:18 Pulse Rate 87 02/01/25 06:18 Respiratory Rate 16 02/01/25 06:18 Blood Pressure 128/83 02/01/25 06:18 Pulse Oximetry 100 02/01/25 06:18 Oxygen Delivery Room Air 02/01/25 06:18 Procedures Catheter Insertion (Urinary) Urinary Catheter 1: Date of insertion: 02/01/25 Time of insertion: 06:26 Reason for placing: Yes (Obstructing suprapubic catheter) Reason for placing indwelling catheter: Urinary obstruction Patient has the following: history of catheter associated urinary tract infection Bladder scan/ultrasound used before catheterization: No Antiseptic solution prep: Povidone-Iodine Topical anesthesia used: No Catheter type/location: Suprapubic Size (American): 18 Catheter balloon size (mL): 10 Catheter balloon amount: 10 Results: successfully catheterized-immediate flow Procedure performed: without complications MDM - Male Genitourinary MDM Narrative Medical decision making narrative: 64-year-old male who is a resident at a local rehab in-situ. Bed ridden at baseline with suprapubic catheter that is long indwelling. States he has not been able to urinate and the catheters block per care home that tried to flush it. Presents via EMS. He has no complaints aside from not able to urinate. No pain or back pain, no fever, chills, nausea, vomiting. Is not sure if he has an infection. No appreciable tenderness, nondistended. Normoactive BS. Suprapubic catheter in place in lower abdomen. Removed due to obstruction with subsequent significant urinary drainage from the stoma site. Relief of patient's symptoms and exchanged without difficulty. Suprapubic cath successfully placed with drainage of clear urine. Urinalysis sent and patient will be discharged back to skilled rehab facility plus/minus antibiotics for infection based on UA. UA positive for infection. Patient started on cefdinir with prescriptions sent. We discharged back to senior living facility via BLS ambulance. Medical Records Attestation: I reviewed the patient's medical records. Lab Data Attestation: I reviewed the patient's lab results. Labs: Lab Results 02/01/25 Range/Units 06:27 Urine Color Yellow (Yellow) Urine Appearance Turbid H (Clear) Urine pH 7.5 (5.0-9.0) Ur Specific [place] 1.022 (1.001-1.035) Urine Protein 2+ H (Negative) mg/dL Urine Glucose (UA) 1+ H (Negative) mg/dL Urine Ketones Negative (Negative) mg/dL Ur Blood (Man) 3+ H (Negative) Urine Nitrate Positive H (Negative) Urine Bilirubin Negative (Negative) Urine Urobilinogen 1.0 (<2.0) mg/dL Add Ur Microanalysis Reviewed Leukocyte Esterase Rfl 3+ H (Negative) BERTO/UL Urine RBC >100 H (0-2) /hpf Urine WBC >100 H (0-3) /hpf Ur Squamous Epith Cells Moderate (Few) /hpf Urine Bacteria 4+ /hpf Urine Casts >20 Discharge Plan Discharge Clinical Impression: Blocked suprapubic catheter, Acute UTI Patient Disposition: NH Long-Term/Asst Living Condition: Stable Instructions: Antibiotic Form, Urinary Tract Infection in Men (ED) Patient Language: Chadian Prescriptions: New cefdinir 300 mg capsule 300 mg PO Q12H 7 Days Qty: 14 0RF cefdinir 300 mg capsule 300 mg PO Q12H 7 Days Qty: 14 0RF No Action metformin 1,000 mg tablet 1,000 mg PO BID cyclobenzaprine 10 mg tablet 10 mg PO ONCE PRN gabapentin 300 mg capsule 600 mg PO BID aspirin 81 mg tablet,delayed release (DR/EC) 81 mg PO DAILY pravastatin 10 mg tablet 10 mg PO DAILY Qty: 30 5RF Lantus Solostar U-100 Insulin 100 unit/mL (3 mL) insulin pen 25 unit SUB-Q BID lisinopril 20 mg tablet 20 mg PO DAILY cephalexin 500 mg capsule 500 mg PO Q6H 7 Days Qty: 28 0RF cephalexin 500 mg capsule 500 mg PO Q6H 7 Days Qty: 28 0RF Follow-up/Referrals: UNKNOWN,DOCTOR [Primary Care Provider] - Stand Alone Forms: [facility] Discharge Time of Disposition: 06:52
--- OUTSIDE RECORDS SUMMARY | 2025-02-01 06:38 | XMS_ITS | Continuity of Care Document ---
Author Organization [facility] Address [address] [place] [address] [place] [address] Phone Care Team Providers Care Spring Former Hand Name Role Phone Al Pedraza MD Unavailable Unavailable Allergies, Adverse Reactions, Alerts Substance Reaction Status Criticality codeine Active No Information Medications Medication Instructions Dosage Effective Dates (start - stop) Status Comments Valerie Hilario U-100 Insulin 100 unit/mL (3 mL) subcutaneous inject by subcutaneous route as per insulin protocol 0.00 - Active 40 units SC at night [place] 7.5 mg-325 mg tablet take 1 tablet by oral route 2 times every day as needed for pain as needed 1 tablet - Active PRN for pain, avoid driving or operate machines metformin 1,000 mg tablet take 1 tablet by oral route 2 times every day with morning and evening meals 1000 MG - Active glimepiride 4 mg tablet take 1 tablet by oral route 2 times every day 4 MG - Active Pen Needle 31 gauge x 5/16 once per day - Active e11.9 fluticasone propionate 50 mcg/actuation nasal spray,suspension inhale [...] on Encounter PREV VISIT, EST, AGE 40-64 [facility], [address] [place], [place], [address], tel:[phone] [facility] Medicine physical (chief complaint) Encounter for general adult medical exam w abnormal findingsType 2 diabetes mellitus w/ diabetic neuropathySleep apneaRestless legs syndromeEssential (primary) hypertensionCoronar y artery disease of [place] coronary artery without angina pectorisChronic pain syndrome 0 Milo Melendez. [address] [facility] [place], [address] , [place]. tel:[phone] Referring Provider: Al Pedraza, [address] [place], [address]. tel:[phone] OFFICE/OUTPA TIENT VISIT, [facility], [address] [place], [place], [address], [place] tel:[phone] [facility] Medicine DM (chief complaint) chronic pain1 (chief complaint) sleep apnea1 (chief complaint) Type 2 diabetes mellitus w/ diabetic neuropathyChronic pain syndromeSleep apnea 9 Milo Melendez. [address], [place], [place], [address] , [place]. tel:[phone] Referring Provider: Jenny [address], [place], [place], [address]. tel:[phone] OFFICE/OUTPA TIENT VISIT, [facility], [address], [place], [place], [address], [place] tel:[phone] [facility] sleep apnea1 (chief complaint) chronic pain1 (chief complaint) pain (chief complaint) RLS (chief complaint) sinus1 (chief complaint) Sleep apneaChronic pain syndromeType 2 diabetes mellitus w/ diabetic neuropathyAllergic rhinitisRestless legs syndrome 9 Milo Melendez. [address], [place], [place], [address] , [place]. tel:[phone] Referring Provider: Jenny Roblero [address], [place], [place], [address]. tel:[phone] OFFICE/OUTPA TIENT VISIT, [facility], [address], [place], [place], [address], [place] tel:[phone] [facility] DM (chief complaint) back pain1 (chief complaint) sleep apnea1 (chief complaint) Chronic pain syndromeSleep apneaType 2 diabetes mellitus w/ diabetic neuropathy 9 Milo Melendez. [address], [place], [place], [address] , [place]. tel:[phone] Referring Provider: Jenny [address], [place], [place], [address]. tel:[phone] OFFICE/OUTPA TIENT VISIT, [facility], [address], [place], [place], [address], [place] tel:[phone] [facility] Medicine CAD (chief complaint) pain1 (chief complaint) sleep apnea1 (chief complaint) colon1 (chief complaint) HTN (chief complaint) Coronary artery disease of [place] coronary artery without angina pectorisEssential (primary) hypertensionChronic pain syndromeSleep apneaPolyp of colon 9 Milo Melendez. [address], [place], [place], [address] , [place]. [phone] Referring Provider: Jenny [address], [place], [place], [address]. tel:[phone] OFFICE/OUTPA TIENT VISIT, [facility], [address] [place], [address], [place] tel:[phone] [facility] chronic pain1 (chief complaint) CAD1 (chief complaint) Coronary artery disease of [place] coronary artery without angina pectorisChronic pain syndrome 9 Milo Melendez. [address], [place], [place], [address] , [place]. [phone] Referring Provider: Jenny Roblero [address] [facility] A, [place], [place], [address]. tel:[phone] OFFICE/OUTPA TIENT VISIT, [facility], [address], [place], [place], [address], [place] tel:[phone] [facility] HTN (chief complaint) HLP (chief complaint) back pain1 (chief complaint) CAD1 (chief complaint) DM (chief complaint) Chronic pain syndromeCoronary artery disease of [place] coronary artery without angina pectorisEssential (primary) hypertensionHyperli pidemiaType 2 diabetes mellitus w/ diabetic neuropathy 9 Milo Dejesus [address], [place], [place], [address] , [place]. [phone] OFFICE/OUTPA TIENT VISIT, [facility], [address], [place], [place], [address], [place] tel:[phone] [facility] lung nodule1 (chief complaint) CAD1 (chief complaint) fatty liver1 (chief complaint) pain1 (chief complaint) Solitary lung noduleRestless legs syndromeFatty liverChronic pain syndromeCoronary artery disease of [place] coronary artery without angina pectoris 9 Milo Melendez. [address], [place], [place], [address] , [place]. tel:[phone] OFFICE/OUTPA TIENT VISIT, [facility], [address], [place], [place], [address], [place] tel:[phone] [facility] lung nodule1 (chief complaint) bakc pain1 (chief complaint) Solitary lung noduleChronic pain syndrome 9 Milo Melendez. [address], [place], [place], [address] , [place]. [phone] Referring Provider: Jenny [address], [place], [place], [address]. tel:[phone] OFFICE/OUTPA TIENT VISIT, [facility], [address], [place], [place], [address], [place] tel:[phone] [facility] chronic pain1 (chief complaint) lung nodule (chief complaint) Solitary lung noduleChronic pain syndrome 9 Milo Melendez. [address], [place], [place], [address] , [place]. [phone] Referring Provider: Jneny [address], [place], [place], [address]. tel:[phone] OFFICE/OUTPA TIENT VISIT, [facility], [address], [place], [place], [address], [place] tel:[phone] [facility] lung nodule1 (chief complaint) back pain1 (chief complaint) renal mass (chief complaint) ferritin (chief complaint) Solitary lung noduleOther spondylosis, lumbar regionKidney disorderDisorder of iron metabolism, unspecified 9 Milo Melendez. [address], [place], [place], [address] , [place]. tel:[phone] Referring Provider: Jenny [address], [place], [place], [address]. tel:[phone] OFFICE/OUTPA TIENT VISIT, [facility], [address], [place], [place], [address], [place] tel:[phone] [facility] DM (chief complaint) back pain1 (chief complaint) renal mass1 (chief complaint) HTN (chief complaint) Chronic pain syndromeType 2 diabetes mellitus with diabetic nephropathyEssentia l (primary) hypertensionKidney disorder 9 Milo Melendez. [address], [place], [place], [address] , [place]. [phone] Referring Provider: Jenny Robler[address], [place], [place], [address]. tel:[phone] OFFICE/OUTPA TIENT VISIT, [facility], [address], [place], [place], [address], [place] tel:[phone] [facility] DM (chief complaint) proteinuri a1 (chief complaint) restless leg (chief complaint) back pain1 (chief complaint) Type 2 diabetes mellitus with diabetic nephropathyRestless legs syndromeDisorder of iron metabolism, unspecifiedChronic pain syndrome 9 Milo Melendez. [address], [place], [place], [address] , [place]. [phone] Referring Provider: Jenny Rob[address], [place], [place], [address]. tel:[phone] OFFICE/OUTPA TIENT VISIT, [facility], [address], [place], [place], [address], [place] tel:[phone] [facility] DM (chief complaint) back pain1 (chief complaint) restless leg1 (chief complaint) renal CA1 (chief complaint) Type 2 diabetes mellitus w/ diabetic neuropathyRestless legs syndromeChronic pain syndromeKidney disorderEssential (primary) hypertension 9 Milo Melendez. [address], [place], [place], [address] , [place]. [phone] Referring Provider: Jenny [address], [place], [place], [address]. tel:[phone] PREV VISIT, NEW, AGE 40-64 [facility], [address], [place], [place], [address], [place] tel:[phone] [facility] Family Medicine Physical (chief complaint) Encounter for general adult medical exam w abnormal findingsEssential (primary) hypertensionType 2 diabetes mellitus w/ diabetic neuropathyChronic pain syndromeKidney disorder 8 Milo Melendez. [address], [place], [place], [address] , [place]. tel:[phone] Referring Provider: Al Pedraza, [address] [facility] [address], [place], [place], [address]. tel:[phone] Family History Family Member Type Diagnosis Age At Onset Brother Problem (finding) unknown Mother Problem (finding) of liver CA at 65 Father Problem (finding) of unknow n cause in [place] unknown age Payers Payer name Insurance type Covered libertarian ID Authoriza tion(s) No Information Social History [...] again missed his steven with endo at [facility] and he needs insulin refill. his [...] Disease (related to Coronary artery disease of [place] coronary artery without angina pectoris) ordered Referral Referred To: Reji Roberts [address] [place], [place] [id number] Ordered: Referrals: Allopathic & Osteopathic Physicians : [...] Moris Rowley [address] [place], [place] [id number] Ordered: Referrals: Allopathic & Osteopathic Physicians : [...] again missed his steven with endo at [facility] and he needs insulin refill. his BG is around 170s. pt denies any hypoglycemia pt denies any polyuria, polydipsia. Pt has CAD, Pt takes pravastatin. Pt sees cardiology Pt takes lisinopril He denies any chest pain, Pt has RLS Pt doing ok with requip pt has mild sleep apnea, pt does have fatigue Pt denies any other complaints chronic pain1 Pt has chronic l ow back pain Pt has mild sciatica and leg numbness pt failed NSAID and ultram Pt takes norco and Neurontin and doing ok. Pt denies any loss of bladder control DM Pt is on metform in and amaryl and basaglar. 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 Pt had positive sleep study one year ago. 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 Pt supposes to do split night study but he was told by sleep lab that insurance denied it. 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 his Bp is borderline colon1 pt had benign co lonoscopy last year with benign polyp. 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 Pt feels tired in the morning and rest of the day Pt had positive sleep study last year but no cpap was done?? pain1 Pt has chronic l ow back pain Pt denies any worsening pain Pt denies any loss of bladder control pt ambulate with cane pt failed NSAID and ultram CAD Pt has CAD Pt lewis s LAD occlusion. Pt denies any chest pain. Pt told me licensing specialist changed his statin from lipitor to pravastatin? Pt denies any myalgia. pt states that no stent or angioplasty was done chronic pain1 Pt has chronic l ow back pain Pt takes norco PRN for pain and neurontin and doing ok. Pt does walk with cane. Pt denies any worsening pain. Pt denies any loss of bladder control CAD1 Pt has CAD and h e will angioplasty in two days. Pt denies any chest pain. DM Pt has DM Pt taras es metformin and amaryl and basaglar. Pt states that his BG is around 150s Pt denies any polyuria, polydipsia. Pt still has not made steven with endo yet CAD1 Pt denies any ch est pain Pt has signs of CAD on CT scan. pt has not heard from cariology back pain1 Pt has chronic l ow back pain pt denies any worsening pain. pt denies any loss of bladder control. Pt takes norco PRN for pain, Pt failed NSAID and ultram HLP Pt takes lipitor . Pt denies any myalgia. Pt needs refilled His lipid profile is ok HTN Pt has HTn pt ta kes lisinopril. Pt needs refilled Pt denies any cough, chest pain, headache lung nodule1 Pt does not have any [...] so b, hemoptysis or cough .CT pending ferritin Pt has high ferr itin, liver appears ok on CT scan back pain1 Pt has chronic l ow back pain. Pt has multiple level of DDD. Pt denies any worsening pain. Pt feels stiffness around lumbar spine. Pt denies any loss of bladder control lung nodule1 Pt is a long soniya e smoker. Pt has lung nodule on chest x ray. Pt denies any sob .Pt denies any chest pain renal mass Pertinent negati ves include abdominal pain, dysuria, fever, headache, hematuria, irreg. heartbeat/palpitations, muscle weakness, nausea, visual changes, vomiting and weight loss. Additional information: Pt has left renal mass suspecting for renal carcinoma. Pt is seeing urology and he will have robotic left partial nephrectomy soon. HTN Pt takes lisinop ril and his BP is borderline today. pt denies any chest pain or headache renal mass1 Pt has renal mas s left side but unsure the nature of it. Pt denies any flank pain Pt is seeing urology and he will have CT of abdomen tomorrow back pain1 Pt has chronic l ow back pain Pt has sciatica and bilateral leg numbness and tingling. Pt walks with cane. Pt failed NSAID and ultram Pt takes norco PRN for pain and doing ok DM Pt takes basagla r 25 units and metformin and amaryl and his BG is around 200 now. Pt has not heard from endo yet. Pt has neuropathy Pt sees podiatry. Pt is on neurontin now DM Pt takes metform in and basaglar [...] l mass. Pt is seeing urology at [facility]. Pt is waiting for either partial [...] unknown nature. Pt is seeing urology at [facility]. Pt has chronic low back pain [...] bladder control Instructions Date Instruction Additional Infor mation Special diet education Related t o Body mass index (BMI) 29.0-29.9, adult Weight management Related to Ciera ruiz for [...] Related to Cor onary artery disease of [place] coronary artery without angina pectoris Special diet education Related t o Body mass index (BMI) 29.0-29.9, adult Special diet education Related t o Body mass index (BMI) 29.0-29.9, adult Increase physical activity Relat ed to Coronary artery disease of [place] coronary artery without angina pectoris Weight management Related to Cor onary artery disease of [place] coronary artery without angina pectoris Follow a low sodium diet. Relate d [...] with diabetic nephropathy Increase physical activity. Rela rubi to Type [...] hypertension assessment Coronary artery dise ase of [place] coronary artery without angina pectoris assessment Chronic pain syndrome 0 Mental Status Date Cognitive Assessment Orientation - [place] ed to time, place, person, situation.
--- OUTSIDE RECORDS SUMMARY | 2025-02-01 06:38 | XMS_ITS | Encounter Summary ---
Author Organization [facility] Healthcare Address [address] [place] [address] Care Team Providers Care Slitter Scorer Name Role Phone Sushma Rg Primary Care Provider [phone] Essence Mccloud MD Unavailable To Dominguez MD Unavailable [phone] Reason for Visit * Auth/Cert (Routine) Specialty Diagnoses / Procedures Referred By Rahul t Referred To Contact Diagnoses Encounter for screening colonoscopy History of colonic polyps Encounter for screening colonoscopy [Z12.11] History of colonic polyps [Z86.0100] Procedures WA COLONOSCOPY FLX DX W/COLLJ SPEC WHEN PFRMD COLONOSCOPY Referral ID Status Reason Start Date Expiration Date Visits Re quested Visits Authorized [id number] 1 1 Encounter Details Date Type Department Care Team (Late st Contact Info) Description 11/16/2024 Hospital Encounter [facility] [address] [place] [address] Margi Vee MD [address] [place] [id number] Social History Tobacco Use Types Packs/Day Years [...] on file 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 Gender Identity Not on file Sexual Orientation [...] polyps documented in this encounter Care Teams Slitter Scorer Relationship Specialty Start Date End Date Sushma Rg PA [address] [facility] [address] [place] [address] PCP - General Internal Medicine 08/17/21 Essence Mccloud MD [address] [facility] [address] [place] [address] Consulting Physician Neurology 11/04/22 To Dominguez MD [address] [place] [address] [address] [place] [address] Consulting Physician Neurology 11/24/23 documented as of this encounter
--- OUTSIDE RECORDS SUMMARY | 2025-02-01 06:38 | XMS_ITS | Clinical Summary ---
Author Organization [facility] [employer] Address [address] [facility] [place] [address] Care Team Providers Care Associate Relations Specialist Name Role Phone Bro Hernandez MD Unavailable [phone] Dong Castillo MD Primary Care Provider [phone] [facility],non-owned Affiliates and Associated Physician Practices is amultiple site organization consisting of ambulatory clinics and hospital sitesin [place], [place], [place] and [place]. This disclosure is being madepursuant to the Care Everywhere program and may not contain all information available regarding this patient. Last updated 18.[facility] [employer] Allergies Active Allergy Reactions Criticality Noted Date [...] fluticasone propionate (FLONASE) 50 MCG/ACT nasal spray Slaton 2 (two) sprays into each nostril once [...] mL 08/31/19 25 Active DropSafe Safety Pen Hayden 31G X 6 MM MISC as directed [...] Glucagon (Baqsimi One Pack) 3 MG/DOSE POWD Slaton 3 mg into the nose as directed Active amoxicillin-cla vulanate (Augmentin) 500-125 MG tablet Take 1 (one) tablet by mouth 2 times daily 09/28/19 25 Active HYDROcodone-libby taminophen ([place]) 5-325 MG tablet 09/28/19 25 Active Santyl [...] Description 12/09/2024 12:00 PM CDT Office Visit [facility] [facility], [place] [address] Dennis Robert MD S/P cervical spinal fusion (Primary Dx) 12/09/2024 11:57 AM CDT - 12/09/2024 11:59 PM CDT Hospital Encounter [facility] DIAGNOSTIC RAD [facility] [address]L [address] [facility]. [facility] [place] [address] Dennis Robert MD Discharge Disposition: Home or Self Care 11/25/2024 Orders Only [facility] - Orthopedics [address] [place] [address], [place] [address] Dennis Robert MD S/P cervical spinal fusion from Last 3 Months Immunizations Immunization Administration [...] Never Comments:6- 10 cigars/day wh ile at long-term. Alcohol Use Standard Drinks/Week Comments No 0 [...] Recorded Patient Health Questionnaire-2 Score 1 12/09/2024 [facility] [place] of Occupat ional Health - Occupational Stress [...] any time in the past [address] [facility], were you homeless or living in a long-term (including now)? No 08/19/2024 Sex and Gender [...] Info) Description 02/23/2025 12:30 PM CDT Appointment [facility] MRI [address] [place] [id number] Blank Javier, BRAKES INSPECTOR-ELECTRONIC SCALE ASSEMBLER AND TESTER [address] [place] [phone] 02/23/2025 2:45 PM CDT Office Visit [facility] [address] [place] [phone] Bro Hernandez MD [address] [phone] 03/03/2025 12:00 PM CDT Office Visit [facility] [address] [facility] [place] [address] Dennis Robert MD [address] [place] [address] [place] [address] Health Maintenance Due Date Last Done Comments [...] 03/09/2020, 09/26/2017, Additional history exists COVID-19 VACCINE ( - 2023- season) 2024 PNEUMOCOCCAL VACCINE 50+ [...] this topic Medical Devices Implanted Type Area Sixth Grade Teacher Device Identifier Shelf Expiration Date Model / Serial / Lot Screw 4mm 18mm Ma Spne Bone Implanted:Qty: 1 on 08/24/2024 by Dennis Robert MD at [facility] N/A: Spine Cervical [employer] Inc [id number] / / Screw Set M6 Spne Oc Upr Thor Infnt Implanted:Qty: 12 on 08/24/2024 by Dennis Robert MD at [facility] N/A: Spine Cervical Medtronic Sofamor Danek Spine [id number] / / Screw 3.5mm 18mm Ma Spne Bone Implanted:Qty: 5 on 08/24/2024 by Dennis Robert MD at [facility] N/A: Spine Cervical [employer] Inc [id number] / / Screw 3.5mm 26mm Ma Spne Oc Upr Thor Implanted:Qty: 2 on 08/24/2024 by Dennis Robert MD at [facility] N/A: Spine Cervical [employer] Inc [id number] / / Screw 3.5mm 30mm Ma Spne Oc Upr Thor Implanted:Qty: 2 on 08/24/2024 by Dennis Robert MD at [facility] N/A: Spine Cervical [employer] Inc [id number] / / Screw 4mm 28mm Ma Spne Infnt Nonster Implanted:Qty: 2 on 08/24/2024 by Dennis Robert MD at [facility] N/A: Spine Cervical Med[employer]onic Inc [id number] / / Magdile Spnl 240mm 3.5mm Std Implanted:Qty: 1 on 08/24/2024 by Dennis Robert MD at [facility] N/A: Spine Cervical Med[employer]onic Inc [id number] / / Explanted Type Area Sixth Grade Teacher Device Identifier Shelf Expiration Date Model / Serial / Lot Kit Acc Ams 700 Penl Pros Implanted:Qty: 1 on 03/01/2019 by Reggie Gore MD at [facility] [employer] 01/29/2024 [id number] / / [id number] Description:PART OF TOTAL Pros Penl Ams Spctr 1cm 12mm 14mm Mlbl Implanted:Qty: 1 on 03/01/2019 by Reggie Gore MD at [facility] [employer] 11/24/2023 [id number] / / [id number] Pros Penl Ams 700 Ms Teller Head Ams Conceal Implanted:Qty: 1 on 03/01/2019 by Reggie Gore MD at [facility] [employer] Scimed 01/03/2021 [id number] / / [id number] Description:PART OF TOTAL Ams 700 Lgx, Ms Pump, Iz Implanted:Qty: 1 on 03/01/2019 by Rgegie Gore MD at [facility] 12/26/2020 [id number] / / [id number] Description:TOTAL COST Procedures Procedure Name Priority Date/Time Associated Diagnosis Comments XR CERVICAL SPINE 2 OR 3VW Routine 12/09/2024 12:03 PM CDT S/P cervical spinal fusion BASIC METABOLIC PANEL (CALCIUM TOTAL) Routine 08/30/2024 4:50 AM CDT Displacement of implanted penile prosthesis, initial encounter HEPATITIS C AB SCREEN RFLX NAAT QUANT Routine 08/21/2024 12:06 AM THERMOSTAT MECHANIC HIV-1 HIV-2 ANTIBODY + HIV P24 AG PANEL Routine 08/21/2024 12:06 AM THERMOSTAT MECHANIC HEMOGLOBIN A1C Routine 08/19/2024 12:22 AM THERMOSTAT MECHANIC Displacement of implanted penile prosthesis, initial encounter [...] exam. Report dictated by Austin Groves MD (president ergonomic consulting). I, Santhosh Lee MD have personally reviewed and interpreted this examination/study. > Interpreting Provider: Santhosh Lee MD on 12/10/2024 8:35 AM Narrative 12/10/2024 8:35 AM CDT PROCEDURE: XR CERVICAL SPINE 2 OR 3VW, DATE/TIME OF EXAM: 12/09/2024 12:03 PM, LOCATION [facility] INDICATION: Z98.1: S/P cervical spinal [...] 3VW, DATE/TIME OF EXAM: 2:03 PM, LOCATION [facility] INDICATION: Z98.1: S/P cervical spinal [...] exam. Report dictated by Austin Groves MD (president ergonomic consulting). I, Santhosh Lee MD have personally reviewed and interpreted this examination/study. > Interpreting Provider: Santhosh Lee MD on 12/10/2024 8:35 AM Dennis Robert MD DIAGNOSTIC IMAGING ORDERABLES Fi nal Result * (ABNORMAL) BASIC METABOLIC PANEL (CALCIUM TOTAL) (08/30/2024 4:50 AM CDT) BUN 19 7 - 26 mg/dL 08/30/2024 7:11 AM [facility] Creatinine 0.42(L) 0.71 - 1.16 mg/dL 08/30/2024 7:11 AM [facility] Sodium 138 136 - 145 mmol/L 08/30/2024 7:11 AM [facility] Potassium 3.9 3.5 - 4.5 mmol/L 08/30/2024 7:11 AM [facility] Chloride 106 98 - 107 mmol/L 08/30/2024 7:11 AM [facility] CO2 25 22 - 29 mmol/L 08/30/2024 7:11 AM [facility] Glucose 65(L) 70 - 99 mg/dL 08/30/2024 7:11 AM [facility] Calcium 9.0 8.4 - 10.2 mg/dL 08/30/2024 7:11 AM [facility] Anion Gap 7 6 - 16 08/30/2024 7:11 AM [facility] BUN/Creatinine Ratio 45(H) 7 - 23 08/30/2024 7:11 AM [facility] Osmolality Calculated 286 275 - 295 mOsm/kg 08/30/2024 7:11 AM [facility] eGFR by CKD-EPI >90 >=90 mL/min/1.7 3 m2 08/30/2024 7:11 AM [facility] Blood BLOOD SPECIMEN / Unknown Lab Venipuncture / Unknown 08/30/2024 4:50 AM CDT 08/30/2024 6:46 AM CDT Bro Hernandez MD LAB - CHEMISTRY ORDERABLES Final Result Performing Organization Address [facility]/ZIP Co de Phone Number [address] [address], [place] [phone] * HEPATITIS C AB SCREEN RFLX NAAT QUANT (08/21/2024 12:06 AM THERMOSTAT MECHANIC) Hepatitis C Antibody Non-react sharmin Non-reac tive 08/21/2024 1:24 AM THERMOSTAT MECHANIC [facility] Comment:Hepatitis C Antibody screen indicates no serologic evidence of past or current infection with Hepatitis C Virus. Patients with unexplained liver disease who are immunocompromised or suspected of having acute Hepatitis C infection may benefit from Nucleic Acid Test (MIKE) for Hepatitis C Viral RNA to confirm Hepatitis C status. Blood BLOOD SPECIMEN / Unknown Lab Venipuncture / Unknown 08/21/2024 12:06 AM THERMOSTAT MECHANIC 08/21/2024 12:38 AM THERMOSTAT MECHANIC Janes Mcmillan II, MD LAB - CHEMISTRY ORDERABL ES Final Result Performing Organization Address [facility] Co de Phone Number [address] [address], [place] [phone] * HIV-1 HIV-2 ANTIBODY + HIV P24 AG PANEL (08/21/2024 12:06 AM THERMOSTAT MECHANIC) Pathologist [facility] HIV Antigen/Antibod y 1 & 2 Non-reacti ve Non-react sharmin 08/21/2024 1:24 AM THERMOSTAT MECHANIC [facility] Comment:No Laboratory eviden ce of HIV infection. Blood BLOOD SPECIMEN / Unknown Lab Venipuncture / Unknown 08/21/2024 12:06 AM THERMOSTAT MECHANIC 08/21/2024 12:38 AM THERMOSTAT MECHANIC Janes Mcmillan II, MD LAB - CHEMISTRY ORDERABL ES Final Result Performing Organization Address City/[facility]/ZIP Co de Phone Number [address] [address], [facility] [phone] * (ABNORMAL) HEMOGLOBIN A1C (08/19/2024 12:22 AM THERMOSTAT MECHANIC) Hemoglobin A1c 7.2(H) <=5.6 % 08/19/2024 9:24 AM [facility] Estimated Average Glucose 160 mg/dL 08/19/2024 9:24 AM [facility] Comment: HbA1c Interpretation: Normal : < 5.7% Pre-diabetes: 5.7-6.4% Diabetes: Equal to or greater than 6.5% Test results diagnostic of diabetes should be repeated for confirmation. Treatment target values recommended by ADA and other clinical organizations should be used to evaluate metabolic control in patients. Reference: [place] [employer], Standards of Care in Diabetes -2020 In patients 70 years and older consider HbA1c target range of 7.0-7.5% (Reference: Jamison Krishnamurthy et al. JAMDA. 2012) The Sebia assay for the measurement of HbA1c is a National Glycohemoglobin Standardization Program (NGSP) certified method. Blood BLOOD SPECIMEN / Unknown Lab Venipuncture / Unknown 08/19/2024 12:22 AM THERMOSTAT MECHANIC 08/19/2024 12:37 AM THERMOSTAT MECHANIC Bro Hernandez MD LAB - CHEMISTRY ORDERABLES Final Result [facility] [address] [place] [address], [facility] [phone] * (ABNORMAL) MICROALB/CREAT RATIO URINE RANDOM PANEL (09/20/2020 6:35 AM CDT) Creatinine Urine 62 20 - 320 mg/dL [facility] Microalbumin Urine 99.3 mg/dL [facility] Comment: Verified by repeat analysis. Reference Range Not established Microalbumin/Creat inine Ratio 1602(H) <30 mcg/mg creat [facility] Comment: The ADA defines abnormalities in albumin excretion as follows: Category Result (mcg/mg creatinine) Normal <30 Microalbuminuria 30-299 Clinical albuminuria > OR = 300 The ADA recommends that at least two of three specimens collected within a 3-6 month period be abnormal before considering a patient to be within a diagnostic category. 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
--- OUTSIDE RECORDS SUMMARY | 2025-02-01 06:38 | XMS_ITS | Encounter Summary ---
Author Organization [facility] Healthcare Address [address] [place] [address] Care Team Providers Care Hide Buyer Name Role Phone Sushma Rg Primary Care Provider [phone] Essence Mccloud MD Unavailable To Dominguez MD Unavailable [phone] Encounter Details Date Type Department Care Team (Late st Contact Info) Description 07/23/2024 Orders Only [facility] Health Information Management [address] [place] [id number] Scanning, Provider Social History Tobacco Use Types [...] on file Legal Sex Male 1:19 PM PROVIDER SCRIBE Gender Identity Not on file Sexual Orientation [...] on filedocumented in this encounter Care Teams Hide Buyer Relationship Specialty Start Date End Date Sushma Rg PA [address] [facility] [address] [place] [address] PCP - General Internal Medicine 08/17/21 Essence Mccloud MD [address] [facility] [address] [place] [address] Consulting Physician Neurology 11/04/22 To Dominguez MD [address] [facility] [address] [place] [address] Consulting Physician Neurology 11/24/23 documented as of this encounter
--- OUTSIDE RECORDS SUMMARY | 2025-02-01 06:38 | XMS_ITS | Clinical Summary ---
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 Bueno, in [place] and has had the hand numbness worked [...] time Assessment & Plan (2023 12:24 AM EDUCATIONAL DIAGNOSTICIAN): Encouraged healthy lifestyle, good nutrition and exercise. [...] provided Assessment & Plan (2023 12:24 AM EDUCATIONAL DIAGNOSTICIAN): Patient notes lower extremity weakness. Had back [...] 11/16/19 Assessment & Plan (2023 12:24 AM EDUCATIONAL DIAGNOSTICIAN): 06/2022 EGD and colonoscopy was scheduled but it was cancelled because he didn't prep correctly. Will need to reschedule. Chronic constipation 11/15/2022 Cigarette smoker 11/04/2022 Assessment & Plan (11/04/2022 10:40 AM CDT): Encouraged smoking cessation. Discussed 3 minutes. Reviewed options for assistance with cessation. Reviewed mcfp sequela associated with smoking. Pt declines assistance at this time but may contact the office at anytime for further help as they desire. Low-dose CT is due. Will place order at [facility]. Prostate cancer screening 11/04/2022 Assessment & Plan (11/04/2022 10:42 AM CDT): Check PSA Tobacco abuse 11/04/2022 Assessment & Plan (12/07/2023 9:37 PM CDT): Encouraged smoking cessation. Discussed 3 minutes. Reviewed options for assistance with cessation. Reviewed mcfp sequela associated with smoking. Pt declines assistance at this time but may contact the office at anytime for further help as they desire. Mostly smoking cigars but still recommend cessation Assessment & Plan (2023 12:23 AM EDUCATIONAL DIAGNOSTICIAN): Patient continues to smoke primarily cigars Myalgia 06/18/2022 Assessment & Plan (06/19/2022 12:02 AM EDUCATIONAL DIAGNOSTICIAN): Patient has had acute cough and cold symptoms for the last week. Will check flu and COVID test. These were negative in the office so encouraged to continue to treat symptoms with ccaw-kyi-aakinqf cough and cold medication. If symptoms worsen [...] cardiology referral. Prefers to be seen in [place]. Will place the referral. Reminded patient if [...] cardiology referral. Prefers to be seen in [place]. Will place the referral. Reminded patient if [...] to go to Dr. Vee up in [place]. Assessment & Plan (06/01/2021 11:11 PM EDUCATIONAL DIAGNOSTICIAN): Patient with history of rectal polyp per colonoscopy done in September of 2017 at [facility].. Due to have repeat colonoscopy for [...] Mccloud Assessment & Plan (2023 12:23 AM EDUCATIONAL DIAGNOSTICIAN): Continue per Dr. Sher sleep Medicine. Patient [...] filter and a mask. Dr. Mccloud, in [place], is who manages his sleep issues. His [...] nightly Assessment & Plan (06/01/2021 11:10 PM EDUCATIONAL DIAGNOSTICIAN): Patient has not been using his CPAP regularly he is unsure if the machine is working correctly. Dr. Blackburn his previous PCP is who ordered the last sleep study. Will refer to Dr. Mccloud sleep specialist in [place] for further evaluation so we can get [...] loss. Will order CPAP device. Order to [facility] Home care Assessment & Plan (09/27/2019 [...] can be ordered. Pt is ok with [facility] Home Care. Microalbuminuria 09/27/2019 Assessment & Plan (04/19/2020 9:18 PM CDT): Avoid nephrotoxic drugs including NSAIDs. Monitor labs. Manage DM tightly. If continues to elevate may need to see nephrology Assessment & Plan (09/27/2019 10:39 AM CDT): Encouraged tighter control of DM to avoid mcfp renal problems. Primary hypertension 09/05/2019 Assessment & Plan (05/14/2024 10:17 AM EDUCATIONAL DIAGNOSTICIAN): Stable continue lisinopril Assessment & Plan (04/23/2024 10:38 AM CDT): Stable continue lisinopril Assessment & Plan (04/05/2024 5:26 AM CDT): Stressed importance of continued A1c control to minimize the mcfp effects of diabetes. Bring accuchecks to office [...] prescribed. Assessment & Plan (2023 12:23 AM EDUCATIONAL DIAGNOSTICIAN): Bp is stable/in acceptable range for any co-morbidities. Encouraged to limit sodium intake and exercise for weight control. Continue lisinopril 20 Assessment & Plan (05/30/2023 2:26 PM EDUCATIONAL DIAGNOSTICIAN): This is a chronic condition which is [...] 20 Assessment & Plan (08/29/2022 12:54 PM EDUCATIONAL DIAGNOSTICIAN): This is a chronic condition which is [...] prescribed. Assessment & Plan (05/31/2022 4:13 PM EDUCATIONAL DIAGNOSTICIAN): This is a chronic condition which is [...] 20 Assessment & Plan (06/01/2021 11:09 PM EDUCATIONAL DIAGNOSTICIAN): Bp is stable/in acceptable range for any [...] Reviewed options for assistance with cessation. 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 Pt declines assistance [...] 08/19/2019 Assessment & Plan (05/04/2024 10:45 AM EDUCATIONAL DIAGNOSTICIAN): This is a chronic condition which is [...] eye exam. last dilated eye exam was [facility]. Monofilament foot exam completed. 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 Goal is <30 Continue lisinopril Assessment & Plan (12/07/2023 9:38 PM CDT): Stressed importance of continued A1c control to minimize the mcfp effects of diabetes. Bring accuchecks to office [...] last dilated eye exam was [facility] in [place] Monofilament foot exam completed. loss of protective [...] atorvastatin. Assessment & Plan (2023 12:22 AM EDUCATIONAL DIAGNOSTICIAN): Stressed importance of continued A1c control to minimize the mcfp effects of diabetes. Bring accuchecks to office [...] 9.1. Assessment & Plan (05/30/2023 2:25 PM EDUCATIONAL DIAGNOSTICIAN): This is a chronic condition which is [...] but could not afford copay- applied for [employer] patient assistance for Soliqua Monitor blood sugar [...] Have tried to get him enrolled in [employer] patient assistance program but we have had complications receiving the right paperwork. Today I was able to access his security account and print off his most recent so security statement Monitor blood sugar 2x times a day. Encouraged annual eye exam. last dilated eye exam was [facility] in [place] Monofilament foot exam completed. loss of protective [...] of continued A1c control to minimize the mcfp effects of diabetes. Bring accuchecks to office when instructed to do so. Check A1c about every 3-6 months. Take medication as prescribed. Get annual eye exam. Encouraged ROSARIO/Statin if able to tolerate. Encouraged weight control and encouraged diabetic diet and exercise. Continue per Sakina Ramesh Assessment & Plan (08/29/2022 12:55 PM EDUCATIONAL DIAGNOSTICIAN): This is a chronic condition which is [...] Personally reviewed A1c -8.9% Forms provided for [employer] patient assistance program . Personally reviewed blood sugar -359, not at goal 80-180 Medication- Continue Tresiba u200 46units daily. Continue metformin 1000mg twice daily. Monitor blood sugar 2 times a day. Encouraged annual eye exam. last dilated eye exam was [facility] in [place] Monofilament foot exam completed. loss of protective [...] No history of macrovascular disease - CVA, [place]. Assessment & Plan (05/31/2022 4:15 PM EDUCATIONAL DIAGNOSTICIAN): This is a chronic condition which is improving but not at goal due to not being able to afford his insulin co-pay Personally reviewed A1c -10.6 %, not at goal less than 7% Forms provided for [employer] patient assistance program. Personally reviewed blood sugar -295, not at goal 80-180 Medication- Continue Tresiba u200 46units daily. 5 samples of Toujeo max provided. Sampled of glucerna provided Continue metformin 1000mg twice daily. Monitor blood sugar 2 times a day. Encouraged annual eye exam. last dilated eye exam was [facility] in [place] Monofilament foot exam completed. loss of protective [...] No history of macrovascular disease - CVA, HI. Assessment & Plan (04/17/2022 11:05 AM CDT): [...] last dilated eye exam was [facility] in [place] Monofilament foot exam completed. loss of protective [...] No history of macrovascular disease - CVA, HI. Assessment & Plan (03/24/2022 5:49 PM CDT): Stressed importance of continued A1c control to minimize the mcfp effects of diabetes. Bring accuchecks to office when instructed to do so. Check A1c about every 3-6 months. Take medication as prescribed. Get annual eye exam. Encouraged ROSARIO/Statin if able to tolerate. Encouraged weight control and encouraged diabetic diet and exercise. He follows with Sakina Ramesh nurse practitioner in [place]. Currently states sugars have been a little [...] last dilated eye exam was [facility] in [place] Monofilament foot exam completed. loss of protective [...] No history of macrovascular disease - CVA, HI. Assessment & Plan (12/04/2021 10:49 AM CDT): [...] last dilated eye exam was [facility] in [place] Monofilament foot exam completed. loss of protective [...] No history of macrovascular disease - CVA, [place]. 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 Bring accuchecks to office when instructed to do so. Check A1c about every 3-6 months. Take medication as prescribed. Get annual eye exam. Encouraged ROSARIO/Statin if able to tolerate. Encouraged weight control and encouraged diabetic diet and exercise. Continue per Sakina Ramesh nurse practitioner in [place]. Unsure if the syncopal type event could have been a hypoglycemic event so will continue to work with her closely and work on tight control of his diabetes. Assessment & Plan (08/30/2021 1:26 PM EDUCATIONAL DIAGNOSTICIAN): This is a chronic condition which is [...] last dilated eye exam was [facility] in [place] Monofilament foot exam completed. loss of protective [...] No history of macrovascular disease - CVA, HI. 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 Bring accuchecks to office when instructed to do so. Check A1c about every 3-6 months. Take medication as prescribed. Get annual eye exam. Encouraged ROSARIO/Statin if able to tolerate. Encouraged weight control and encouraged diabetic diet and exercise. Continue per Sakina Ramesh nurse practitioner Assessment & Plan (05/31/2021 2:36 PM EDUCATIONAL DIAGNOSTICIAN): This is a chronic condition which is not at goal. Personally reviewed A1c -8.6, not at goal less than 7% Personally reviewed blood sugar -275 goal 80-180 Medication- stop Lantus and glimeperide. Start Soliqua 30 units and will titrate up. Covered on insurance plan. Monitor blood sugar 2 times a day. Encouraged annual eye exam. last dilated eye exam was [facility] in [place] Monofilament foot exam completed. loss of protective [...] No history of macrovascular disease - CVA, HI. Assessment & Plan (10/18/2020 10:38 PM CDT): Stressed importance of continued A1c control to minimize the mcfp effects of diabetes. Bring accuchecks to office when instructed to do so. Check A1c about every 3-6 months. Take medication as prescribed. Get annual eye exam. Encouraged ROSARIO/Statin if able to tolerate. Encouraged weight control and encouraged diabetic diet and exercise. Continue per endocrinology Mixed hyperlipidemia 08/19/2019 Assessment & Plan (05/14/2024 10:17 AM EDUCATIONAL DIAGNOSTICIAN): Stable continue Lipitor Assessment & Plan (05/04/2024 10:47 AM EDUCATIONAL DIAGNOSTICIAN): >>ASSESSMENT AND PLAN FOR MIXED HYPERLIPIDEMIA WRITTEN ON 04/23/2024 10:38 AM BY RADHA HOWARD MD Stable continue Lipitor Assessment & Plan (05/04/2024 10:45 AM EDUCATIONAL DIAGNOSTICIAN): This is a chronic condition which is [...] prescribed. Assessment & Plan (2023 12:22 AM EDUCATIONAL DIAGNOSTICIAN): Encouraged patient to follow low fat/low chol diet like the Mediterranean diet. Increase good fats in the diet. Increase exercise. Monitor labs as needed. Continue atorvastatin Assessment & Plan (05/30/2023 2:25 PM EDUCATIONAL DIAGNOSTICIAN): This is a chronic condition which is [...] prescribed. Assessment & Plan (05/04/2024 10:47 AM EDUCATIONAL DIAGNOSTICIAN): >>ASSESSMENT AND PLAN FOR HYPERLIPIDEMIA ASSOCIATED WITH [...] atorvastatin Assessment & Plan (08/29/2022 12:54 PM EDUCATIONAL DIAGNOSTICIAN): This is a chronic condition which is at goal. Goal is less than 70. Personally reviewed lipid panel. continue atorvastatin Encouraged to eat healthy, include fresh fruits and vegetables daily and avoid eating fried foods more than once per week. Encouraged to take medications as prescribed. Assessment & Plan (05/31/2022 4:14 PM EDUCATIONAL DIAGNOSTICIAN): This is a chronic condition which is [...] prescribed. Assessment & Plan (08/30/2021 1:10 PM EDUCATIONAL DIAGNOSTICIAN): This is a chronic condition which is not at goal. Goal is less than 70. Personally reviewed lipid panel. LDL- 91- changed to atorvastatin 40mg (high intensity) Encouraged to eat healthy, include fresh fruits and vegetables daily and avoid eating fried foods more than once per week. Encouraged to take medications as prescribed. Assessment & Plan (06/01/2021 11:08 PM EDUCATIONAL DIAGNOSTICIAN): Encouraged patient to follow fat/low chol diet like the Mediterranean diet. Increase good fats in the diet. Increase exercise. Monitor labs as needed. Assessment & Plan (05/31/2021 2:29 PM EDUCATIONAL DIAGNOSTICIAN): This is a chronic condition which is [...] 08/19/2019 Assessment & Plan (2023 12:23 AM EDUCATIONAL DIAGNOSTICIAN): Continue per Dr. Sher sleep Medicine. Patient [...] Requip Assessment & Plan (06/01/2021 11:08 PM EDUCATIONAL DIAGNOSTICIAN): Continue Requip Assessment & Plan (10/18/2020 10:39 [...] Reviewed options for assistance with cessation. 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 Pt declines assistance at this time but may contact the office at anytime for further help as they desire. Assessment & Plan (12/14/2019 10:24 PM CDT): Encouraged cessation Assessment & Plan (09/27/2019 10:40 AM CDT): Encouraged smoking cessation. Discussed 3 minutes. Reviewed options for assistance with cessation. 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 Pt declines assistance at this time but may contact the office at anytime for further help as they desire. Assessment & Plan (09/05/2019 4:35 PM CDT): Encouraged smoking cessation. Discussed 3 minutes. Reviewed options for assistance with cessation. Reviewed mcfp sequela associated with smoking. Pt declines assistance [...] well Assessment & Plan (05/27/2023 9:29 AM EDUCATIONAL DIAGNOSTICIAN): Weight/BMI is in healthy range. Continue healthy [...] 11/24/2023 Assessment & Plan (06/19/2022 12:01 AM EDUCATIONAL DIAGNOSTICIAN): This is a significant, separately identifiable problem that was evaluated and managed on the same day as the wellness exam Persistent neck pain with movement. Does have some numbness down the arm. Has EMG with Dr. Campbell in [place] and the results are still pending. He [...] 11/24/2023 Assessment & Plan (06/19/2022 12:01 AM EDUCATIONAL DIAGNOSTICIAN): This is a significant, separately identifiable problem [...] 11/24/2023 Assessment & Plan (06/19/2022 12:02 AM EDUCATIONAL DIAGNOSTICIAN): Patient has had acute cough and cold symptoms for the last week. Will check flu and COVID test. These were negative in the office so encouraged to continue to treat symptoms with ypon-qsw-khwufyq cough and cold medication. If symptoms worsen or do not resolve he is to follow up immediately. Cough 06/18/2022 11/24/2023 Assessment & Plan (06/19/2022 12:02 AM EDUCATIONAL DIAGNOSTICIAN): Patient has had acute cough and cold symptoms for the last week. Will check flu and COVID test. These were negative in the office so encouraged to continue to treat symptoms with hegv-qja-svmaduc cough and cold medication. If symptoms worsen or do not resolve he is to follow up immediately. Chest congestion 06/18/2022 11/24/2023 Assessment & Plan (06/19/2022 12:02 AM EDUCATIONAL DIAGNOSTICIAN): Patient has had acute cough and cold symptoms for the last week. Will check flu and COVID test. These were negative in the office so encouraged to continue to treat symptoms with ldhv-pqm-fxdgdnd cough and cold medication. If symptoms worsen or do not resolve he is to follow up immediately. Body aches 06/18/2022 11/24/2023 Assessment & Plan (06/19/2022 12:02 AM EDUCATIONAL DIAGNOSTICIAN): Patient has had acute cough and cold symptoms for the last week. Will check flu and COVID test. These were negative in the office so encouraged to continue to treat symptoms with hbhk-muz-tumgltf cough and cold medication. If symptoms worsen or do not resolve he is to follow up immediately. Medicare annual wellness visit, subsequent 06/18/2022 11/03/2022 Assessment & Plan (06/19/2022 12:02 AM EDUCATIONAL DIAGNOSTICIAN): Encouraged healthy lifestyle, good nutrition and exercise. [...] He is to follow-up with the his manufacturing software engineer in [place] soon as possible to review his control. [...] 06/01/20212021 Assessment & Plan (06/01/2021 10:52 AM EDUCATIONAL DIAGNOSTICIAN): Obesity is unchanged. Discussed the patient's BMI. The BMI is above average. BMI management plan is completed. BMI Follow-up includes: nutrition counseling, exercise counseling and education provided. BMI 30.0-30.9,adult 06/01/2021 11/02/19 Assessment & Plan (06/01/2021 10:52 AM EDUCATIONAL DIAGNOSTICIAN): Obesity is unchanged. Discussed the patient's BMI. The BMI is above average. BMI management plan is completed. BMI Follow-up includes: nutrition counseling, exercise counseling and education provided. Medicare annual wellness visit, subsequent 06/01/2021 03/24/2022 Assessment & Plan (06/01/2021 11:12 PM EDUCATIONAL DIAGNOSTICIAN): Encouraged healthy lifestyle, good nutrition and exercise. [...] Moran Assessment & Plan (06/01/2021 11:12 PM EDUCATIONAL DIAGNOSTICIAN): Patient has noticed decreased hearing. His ear canals are clear. Will refer to ENT/audiology for further evaluation Close exposure to COVID-19 virus 05/20/2021 06/01/2021 Assessment & Plan (05/20/2021 5:45 PM EDUCATIONAL DIAGNOSTICIAN): Patient to presume positive COVID until results are available and self isolate for 10 days from the onset of sxs. Check COVID test thru [facility] collection site in [place]. If positive, complete quarantine and consider monoclonal [...] water often. If needed, use a hand justice of the peace that contains at least 60% alcohol. Clean [...] 11/04/2022 Assessment & Plan (06/01/2021 11:12 PM EDUCATIONAL DIAGNOSTICIAN): Encouraged smoking cessation. Discussed 3 minutes. Reviewed options for assistance with cessation. Reviewed mcfp sequela associated with smoking. Pt declines assistance at this time but may contact the office at anytime for further help as they desire. Assessment & Plan (10/18/2020 10:41 PM CDT): Encouraged smoking cessation. Discussed 3 minutes. Reviewed options for assistance with cessation. 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 Bring accuchecks to office [...] of continued A1c control to minimize the longwall machine operator helper effects of diabetes. Bring accuchecks to office [...] of continued A1c control to minimize the longwall machine operator helper effects of diabetes. Bring accuchecks to office [...] of continued A1c control to minimize the longwall machine operator helper effects of diabetes. Bring accuchecks to office when instructed to do so. Check A1c about every 3-6 months. Take medication as prescribed. Get annual eye exam. Encouraged ROSARIO/Statin if able to tolerate. Encouraged weight control and encouraged diabetic diet and exercise. Continue per endocrinology Assessment & Plan (12/14/2019 10:22 PM CDT): Stressed importance of continued A1c control to minimize the longwall machine operator helper effects of diabetes. Bring accuchecks to office [...] of continued A1c control to minimize the mcfp effects of diabetes. Bring accuchecks to office when instructed to do so. Check A1c about every 3-6 months. Take medication as prescribed. Get annual eye exam. Encouraged ROSARIO/Statin if able to tolerate. Encouraged weight control and encouraged diabetic diet and exercise. Refer back to [facility] to manage his DM. He is on Gabapentin 60mg bid for neuropathy. Encounters Date Type Department Care Team Description 01/21/2025 Telephone [facility] Family Medicine [address] [place] [address] Cassie Rg PA 01/07/2025 Telephone [facility] [place] [address] [place] [address] [address] [place] [address] Sakina Ramesh NP 12/16/2024 Orders Only [facility] [address] [place] [address] Scanning, Provider 12/06/2024 Telephone [facility] Accountable Care Organization [address] [place] [address] Lizabeth Loza MA Unsuccessful Phone Call 1 ([employer] DM eye exam ) 12/06/2024 Telephone [facility] [address], [place] [address] To Dominguez MD 12/06/2024 Telephone [facility] [address] [place] [address] To Dominguez MD 11/16/2024 Hospital Encounter [facility] [address] [place] [address] Margi Vee MD 11/03/2024 Telephone [facility] Medical Group Gastroenterology at [address] [place] [address] Miley Pereyra Colonoscopy Cancel from Last 3 Months Immunizations Immunization Administration [...] loss) Tinnitus BMI 27.0-27.9,adult 03/24/2022 Neuromuscular disorder 10/10/18 Sleep apnea 09/04/18 Poor circulation Family [...] on file Legal Sex Male 1:19 PM EDUCATIONAL DIAGNOSTICIAN Gender Identity Not on file Sexual Orientation Not on file Occupation Industry Job Start Date Job End Date Disabled Not on file Not on file Not on file Obstetrics History Last Filed Vital Signs Vital Sign Reading Time Taken Comments Blood Pressure 150/95 06/10/2024 10:27 AM EDUCATIONAL DIAGNOSTICIAN Pulse 94 06/10/2024 10:27 AM EDUCATIONAL DIAGNOSTICIAN Temperature 36.9 C (98.5 F) 03/25/2024 11:00 AM CDT Respiratory Rate 18 02/09/2024 9:00 PM CDT Oxygen Saturation 100% 06/10/2024 10:27 AM EDUCATIONAL DIAGNOSTICIAN Inhaled Oxygen Concentration - - Weight 75.3 kg (166 lb) 05/12/2024 10:11 AM EDUCATIONAL DIAGNOSTICIAN Height 170.2 cm (5' 7.01) 06/10/2024 10:[address] Body Mass Index 26 05/12/2024 10:11 AM EDUCATIONAL DIAGNOSTICIAN Plan of Treatment Health Maintenance Due Date [...] Discontinued 10/10/2017 Colon Cancer Screening-DNA Stool Discontinued 04/20/20 18 Colon Cancer Screening-FIT Discontinued 10/10/2017 Colon Cancer Screening-Sigmoidoscopy Discontinued 10/10/2017 Hepatitis C Screening Completed 04/08/2024 Procedures Procedure Name Priority Date/Time Associated Diagnosis Comments SCAN - LABS 12/16/2024 POCT HEMOGLOBIN A1C Routine 05/04/2024 10:28 AM EDUCATIONAL DIAGNOSTICIAN Type 2 diabetes mellitus with hypoglycemia without [...] W WO CONTRAST Routine 07/24/2017 6:00 PM EDUCATIONAL DIAGNOSTICIAN from Last 3 Months or Most Recently Relevant to Health Maintenance Results * SCAN - LABS (12/16/2024) us Provider Scanning Edited Result - Final * POCT hemoglobin A1c (05/04/2024 10:28 AM EDUCATIONAL DIAGNOSTICIAN) Hemoglobin A1C, POC 5.5 4.0 - 5.6 % Blood 05/04/2024 10:2 8 AM EDUCATIONAL DIAGNOSTICIAN us Sakina Ramesh NP POINT OF CARE TEST ORDERABLES F inal Result * Hepatitis panel, acute Blood (04/08/2024 10:12 AM CDT) Hep A IgM Nonreactive Nonreactive Comment: Interpretive Data: If Hep A IgM Ab is reported as Equivocal, a new sample should be drawn in two weeks for testing. Current interpretive data was last revised on 19. Testing performed by: [address] [id number] Hep B core IgM Nonreactive Nonreactive Naomy MEMBRENO (FA[place]IO) Comment: Interpretive Data If HepB Core IgM Ab is reported as Equivocal, a new sample should be drawn in two weeks for testing. Current interpretive data was last revised on 19. Testing performed by: [facility], [address] [place] [address]., [id number] Hep C Ab Nonreactive Nonreactive KATHY MEMBRENO [...] last revised on 2019. Testing performed by: [facility], [address] [place] [address]., [id number] HepBsAg Nonreactive Nonreactive KATHY MEMBRENO ([place]) Comment:Testing performed by : [address] [id number] Blood 04/08/2024 10:1 2 AM CDT 04/08/2024 7:02 PM CDT us Cassie ROSALES LAB MICROBIOLOGY - GENERAL ORDERABLES Final Result KATHY MEMBRENO ([place]) 1 [facility] Department [place] [address] * (ABNORMAL) DIABETES EYE EXAM (03/04/2024 3:17 [...] LAB BLOOD ORDERABLE S Final Result KATHY [address] [facility] Department [place] [address] * CT Lung Cancer Screening (12/22/2023 3:43 PM CDT) Anatomical Region Laterality Modality Chest N/A Computed Tomogra phy us Cassie ROSALES IMG CT PROCEDURES Final Re sult * (ABNORMAL) Albumin Creatinine Ratio, Urine (09/19/2023 10:24 AM CDT) Albumin Ur 2,321.8 mg/L Comment: Interpretive Data No reference range established. Current interpretive data was last revised 2018. Testing performed by: [facility], [address] [place] [address]., [id number] Creatinine Ur 301.4 mg/dL KATHY MEMBRENO ([place]) Comment: Interpretive Data No reference range established. Current interpretive data was last revised 2018. Testing performed by: [facility], [address] [place] [address]., [id number] Albumin Creatinine Ratio, Ur 770(H) 1 - 29 mg/g KATHY MEMBRENO ([place]) Comment:Testing performed by : [facility], [address] [place] [address]., [address] Urine 09/19/2023 10:2 4 AM CDT 09/19/2023 4:00 PM CDT us Sakina Ramesh NP LAB URINE ORDERABLES Final Resu lt KATHY MEMBRENO ([place]) 1 [facility] Department of Laboratories [place], [place] [id number] * (ABNORMAL) Lipid panel (09/19/2023 10:24 AM [...] 09/19/2023 1:29 PM CDT Narrative KATHY MEMBRENO ([place]ANDIA) - 09/19/2023 2:01 PM CDT These lab test should be done fasting. This means do not eat or drink for at least 12 hours prior to getting your blood drawn. Sakina Ramesh PICK UP WORKER LAB BLOOD ORDERABLES Final Resu lt KATHY MEMBRENO ([place]ANDIA) 1 [facility] [employer] [place] [address] * PSA screen (12/02/2022 9:00 AM CDT) PSA-Total 1.09 <=5.40 ng/mL KATHY MEMBRENO ([place]) Comment: Interpretive Data AGE SEX REFERENCE INTERVAL [...] CDT 12/02/2022 1:16 PM CDT us Cassie Rg PA LAB BLOOD ORDERABLES Final Result KATHY MEMBRENO ([place]) 1 [facility] Department [place] [address] * HM COLONOSCOPY (10/10/2017) Colonoscopy Abnormal Comment:rectal polyp us Historical Provider HEALTH MAINTENANCE Final Result * CT Abdomen Pelvis W WO Contrast (07/24/2017 6:00 PM EDUCATIONAL DIAGNOSTICIAN) Anatomical Region Laterality Modality Body N/A Computed Tomogra phy 07/24/2017 6:00 PM EDUCATIONAL DIAGNOSTICIAN Narrative 07/24/2017 6:33 PM EDUCATIONAL DIAGNOSTICIAN JOSE CARVALHO M.D. FINAL REPORT ACC# Date Time Exam [id number] Jul 24, 2017 12:00:[id number] Abd & Pelvis wwo cont EXAMINATION: [...] CARVALHO M.D. on Jul 24 2017 12:31P [id number] CARVALHO M.D. FINAL REPORT Attending: BONNIE REGAN Requesting: IRWIN BOWMAN Requesting Fax: Attending Fax: Attending ID: [id number] Requesting ID: [id number] Report To 1 ID: [id number] Report To 1 Name: , Report To 1 FAX: NextGen Order #: Procedure Note Miscellaneous, Not In File - 07/24/2017 JOSE CARVALHO M.D. FINAL REPORT ACC# Date Time Exam [id number] Jul 24, 2017 12:00:[id number] Abd & Pelvis wwo cont EXAMINATION: [...] CARVALHO M.D. on Jul 24 2017 12:31P [id number] CARVALHO M.D. FINAL REPORT Attending: BONNIE REGAN Requesting: IRWIN BOWMAN Requesting Fax: Attending Fax: Attending ID: [id number] Requesting ID: [id number] Report To 1 ID: [id number] Report To 1 Name: , Report To 1 FAX: NextGen Order #: Irwin Bowman MD IMG CT PROCEDURES Final Re sult from Last 3 Months or Most Recently Relevant to Health [place] [id number] [facility] MDCR HMO [facility] Address: [address] [address] [place] [address] [employer] MED[employer]ARE GOLD MEDICARE Advance Directives For more information, please contact: [phone] * Full Code (Latest Code Status on File) Date Activated Date Inactivated Comments 11/26/2022 10:28 AM 12/02/2022 1:56 PM * Full Code Date Activated Date Inactivated Comments 11/26/2022 10:28 AM 11/26/2022 10:28 AM Care Teams Yeast Maker Relationship Specialty Start Date End Date Cassie Rg PA [address] [place] [address] PCP - General Internal Medicine 08/17/21 Essence Mccloud MD [address] [place] [address] Consulting Physician Neurology 11/04/22 To Dominguez MD [address] [place] [address] [address] [place] [address] Consulting Physician Neurology 11/24/23
--- OUTSIDE RECORDS SUMMARY | 2025-02-01 06:38 | XMS_ITS ---
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
[2025-02-01 06:48] LABS: Add Urine Microscopic? YES; Appearance Urine Turbid (Clear); Glucose Urine UA 1+ mg/dL (Negative); Leukocyte Esterase Ur 3+ LEU/UL (Negative); Need Manual Microscopic Reviewed; Nitrate Urine Positive (Negative); Non Pathogenic Casts >20; Specific Grav Ur 1.022 (1.001-1.035)
[2025-02-01 07:34] VITALS: BP 105/74; PULSE 87; RESP 16; O2SAT 100
== END 2025-02-01 08:41 ==
PROVIDERS: Emergency Provider Student in an Organized Health Care Education/Training Program
DX: T83.098A Other mechanical complication of other urinary catheter, initial encounter (principal); N39.0 Urinary tract infection, site not specified; E11.9 Type 2 diabetes mellitus without complications; F17.200 Nicotine dependence, unspecified, uncomplicated
CPT/HCPCS: 51705; 81001; 99283

== ENCOUNTER 2025-02-17 14:23 | Inpatient (IN) | payer MEDICARE, SELFPAY ==
--- OUTSIDE RECORDS SUMMARY | 2019-06-30 08:45 | XMS_ITS | Continuity of Care Document ---
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 Role Phone Al Pedraza MD Unavailable Unavailable Allergies, Adverse Reactions, Alerts Substance Reaction Status Criticality codeine Active No Information Medications Medication Instructions Dosage Effective Dates (start - stop) Status Comments [place] 7.5 mg-325 mg tablet take 1 tablet by oral route 2 times every day as needed for pain as needed 1 tablet - Active PRN for pain, avoid driving or operate machines Valerie Hilario U-100 Insulin 100 unit/mL (3 mL) subcutaneous inject by subcutaneous route as per insulin protocol 0.00 - Active 40 units SC at night Pen Needle 31 gauge x 5/16 once per day - Active e11.9 glimepiride 4 mg tablet take 1 tablet by oral route 2 times every day 4 MG - Active metformin 1,000 mg tablet take 1 tablet by oral route 2 times every day with morning and evening meals 1000 MG - Active fluticasone propionate 50 mcg/actuation nasal spray,suspension inhale 2 spray by intranasal route every day in each nostril 100 MCG - Active Neurontin 300 mg capsule take 1 capsule by oral route 3 times every day 300 MG - Active avoid driving or operate machines pravastatin 10 mg tablet take 1 tablet by oral route every day 10 MG - Active lisinopril 20 mg tablet take 1 tablet by oral route every day 20 MG - Active ropinirole 1 mg tablet take 1 tablet by oral route every bedtime 1 MG - Active cyclobenzaprine 10 mg tablet take 1 tablet by oral route every day as needed 10 MG - Active Procedures Procedure Date PREV VISIT, EST, AGE 40-64 OFFICE/OUTPATIENT VISIT, EST OFFICE/OUTPATIENT VISIT, EST OFFICE/OUTPATIENT VISIT, EST OFFICE/OUTPATIENT VISIT, EST OFFICE/OUTPATIENT VISIT, EST OFFICE/OUTPATIENT VISIT, EST OFFICE/OUTPATIENT VISIT, EST OFFICE/OUTPATIENT VISIT, EST OFFICE/OUTPATIENT VISIT, EST OFFICE/OUTPATIENT VISIT, EST OFFICE/OUTPATIENT VISIT, EST OFFICE/OUTPATIENT VISIT, EST OFFICE/OUTPATIENT VISIT, EST OFFICE/OUTPATIENT VISIT, EST PREV VISIT, NEW, AGE 40-64 OFFICE/OUTPATIENT VISIT, NEW Advance Directives Directive Yes / No Effective Date File Name No Information Encounters Encounter Description Practice Location Reason(s) For Visit Diagnoses Date Provider Providers Copied on Encounter PREV VISIT, EST, AGE 40-64 [facility], [address] [place], [place], [id number], tel:[phone] [facility] physical (chief complaint) Encounter for general adult medical exam w abnormal findingsType 2 diabetes mellitus w/ diabetic neuropathySleep apneaRestless legs syndromeEssential (primary) hypertensionCoronar y artery disease of [place] coronary artery without angina pectorisChronic pain syndrome 0 Milo Melendez. [address] [facility] [place], [address] , [place]. tel:[phone] Referring Provider: Al Pedraza, [address] [place], [address]. tel:[phone] OFFICE/OUTPA TIENT VISIT, [facility], [address] [place], [address], [place] tel:[phone] [facility] DM (chief complaint) chronic pain1 (chief complaint) sleep apnea1 (chief complaint) Type 2 diabetes mellitus w/ diabetic neuropathyChronic pain syndromeSleep apnea 9 Milo Melendez. [address], [place], [place], [address] , [place]. tel:[phone] Referring Provider: Jenny Roblero [address], [place], [place], [address]. tel:[phone] OFFICE/OUTPA TIENT VISIT, [facility], [address], [place], [place], [address], [place] tel:[phone] [facility] sleep apnea1 (chief complaint) chronic pain1 (chief complaint) pain (chief complaint) RLS (chief complaint) sinus1 (chief complaint) Sleep apneaChronic pain syndromeType 2 diabetes mellitus w/ diabetic neuropathyAllergic rhinitisRestless legs syndrome 9 Milo Melendez. [address], [place], [place], [address] , [place]. tel:[phone] Referring Provider: Jenny Rob[address], [place], [place], [address]. tel:[phone] OFFICE/OUTPA TIENT VISIT, [facility], [address], [place], [place], [address], [place] tel:[phone] [facility] DM (chief complaint) back pain1 (chief complaint) sleep apnea1 (chief complaint) Chronic pain syndromeSleep apneaType 2 diabetes mellitus w/ diabetic neuropathy 9 Milo Melendez. [address], [place], [place], [address] , [place]. tel:[phone] Referring Provider: Jenny Rob[address], [place], [place], [address]. tel:[phone] OFFICE/OUTPA TIENT VISIT, [facility], [address], [place], [place], [address], [place] tel:[phone] [facility] CAD (chief complaint) pain1 (chief complaint) sleep apnea1 (chief complaint) colon1 (chief complaint) HTN (chief complaint) Coronary artery disease of [place] coronary artery without angina pectorisEssential (primary) hypertensionChronic pain syndromeSleep apneaPolyp of colon 9 Milo Melendez. [address], [place], [place], [address] , [place]. [phone] Referring Provider: Jenny Robler[address], [place], [place], [address]. tel:[phone] OFFICE/OUTPA TIENT VISIT, [facility], [address] [place], [address], [place] tel:[phone] [facility] chronic pain1 (chief complaint) CAD1 (chief complaint) Coronary artery disease of [place] coronary artery without angina pectorisChronic pain syndrome 9 Milo Melendez. [address], [place], [place], [address] , [place]. [phone] Referring Provider: Jenny Roblero [address] [facility] A, [place], [place], [address]. tel:[phone] OFFICE/OUTPA TIENT VISIT, [facility], [address], [place], [place], [address], [place] tel:[phone] [facility] HTN (chief complaint) HLP (chief complaint) back pain1 (chief complaint) CAD1 (chief complaint) DM (chief complaint) Chronic pain syndromeCoronary artery disease of [place] coronary artery without angina pectorisEssential (primary) hypertensionHyperli pidemiaType 2 diabetes mellitus w/ diabetic neuropathy 9 Milo Dejesus [address], [place], [place], [address] , [place]. [phone] OFFICE/OUTPA TIENT VISIT, [facility], [address], [place], [place], [address], [place] tel:[phone] [facility] lung nodule1 (chief complaint) CAD1 (chief complaint) fatty liver1 (chief complaint) pain1 (chief complaint) Solitary lung noduleRestless legs syndromeFatty liverChronic pain syndromeCoronary artery disease of cocop[place] coronary artery without angina pectoris 9 Milo Melendez. [address], [place], [place], [address] , [place]. tel:[phone] OFFICE/OUTPA TIENT VISIT, [facility], [address], [place], [place], [address], [place] tel:[phone] [facility] lung nodule1 (chief complaint) bakc pain1 (chief complaint) Solitary lung noduleChronic pain syndrome 9 Milo Melendez. [address], [place], [place], [address] , [place]. [phone] Referring Provider: Jenny Rob[address], [place], [place], [address]. tel:[phone] OFFICE/OUTPA TIENT VISIT, [facility], [address], [place], [place], [address], [place] tel:[phone] [facility] chronic pain1 (chief complaint) lung nodule (chief complaint) Solitary lung noduleChronic pain syndrome 9 Milo Melendez. [address], [place], [place], [address] , [place]. [phone] Referring Provider: Jenny [address], [place], [place], [address]. tel:[phone] OFFICE/OUTPA TIENT VISIT, [facility], [address], [place], [place], [address], [place] tel:[phone] [facility] lung nodule1 (chief complaint) back pain1 (chief complaint) renal mass (chief complaint) ferritin (chief complaint) Solitary lung noduleOther spondylosis, lumbar regionKidney disorderDisorder of iron metabolism, unspecified 9 Milo Melendez. [address], [place], [place], [address] , [place]. tel:[phone] Referring Provider: Jenny Rob[address], [place], [place], [address]. tel:[phone] OFFICE/OUTPA TIENT VISIT, [facility], [address], [place], [place], [address], [place] tel:[phone] [facility] DM (chief complaint) back pain1 (chief complaint) renal mass1 (chief complaint) HTN (chief complaint) Chronic pain syndromeType 2 diabetes mellitus with diabetic nephropathyEssentia l (primary) hypertensionKidney disorder 9 Milo Melnedez. [address], [place], [place], [address] , [place]. [phone] Referring Provider: Jenny [address], [place], [place], [address]. tel:[phone] OFFICE/OUTPA TIENT VISIT, [facility], [address], [place], [place], [address], [place] tel:[phone] [facility] DM (chief complaint) proteinuri a1 (chief complaint) restless leg (chief complaint) back pain1 (chief complaint) Type 2 diabetes mellitus with diabetic nephropathyRestless legs syndromeDisorder of iron metabolism, unspecifiedChronic pain syndrome 9 Milo Melendez. [address], [place], [place], [address] , [place]. [phone] Referring Provider: Jenny Rob[address], [place], [place], [address]. tel:[phone] OFFICE/OUTPA TIENT VISIT, [facility], [address], [place], [address], [place] tel:[phone] [facility] DM (chief complaint) back pain1 (chief complaint) restless leg1 (chief complaint) renal CA1 (chief complaint) Type 2 diabetes mellitus w/ diabetic neuropathyRestless legs syndromeChronic pain syndromeKidney disorderEssential (primary) hypertension 9 Milo Melendez. [address], [place], [place], [address] , [place]. [phone] Referring Provider: Jenny Rob[address], [place], [place], [address]. tel:[phone] PREV VISIT, NEW, AGE 40-64 [facility], [address], [place], [place], [address], [place] tel:[phone] [facility] Physical (chief complaint) Encounter for general adult medical exam w abnormal findingsEssential (primary) hypertensionType 2 diabetes mellitus w/ diabetic neuropathyChronic pain syndromeKidney disorder 8 Milo Melendez. [address], [place], [address] , [place]. tel:[phone] Referring Provider: Al Pedraza, [address] [facility] [address], [place], [place], [address]. tel:[phone] Family History Family Member Type Diagnosis Age At Onset Brother Problem (finding) unknown Mother Problem (finding) of liver CA at 65 Father Problem (finding) of unknow n cause in [place] unknown age Payers Payer name Insurance type Covered alliance party ID Authoriza tion(s) No Information Social History Type Description Quantity Date Captured Comments Alcohol Use Details No Caffeine Use Details Unknown Tobacco Use Status Ex-cigarette smoker 020 Smoking Status Heavy tobacco smoker Smoking Tobacco Use Details Cigarette: Age Started: 27, Age Stopped: 37, Years Used 10
Cigar: Age Started: 39, Years Used 18 Cigarette: 1 Packs per day, Pack Year: 10
Cigar: 5 Cigars per day, Pack Year: 18 Sex Male Vital Signs Date / Time: Height Weight BMI Pulse Rate Blood Pressure Temperature Respiratory Rate Body Surface Area Head Circumference BMI percentile Pulse Ox Inhaled Ox 3:31 PM 68.00 in 192.40 lbs 29.2 5 kg/m eter (2) 70 /min 117/75 mm[Hg] 98.0 F 16 /min Chief Complaint And Reason For Visit From encounter dated '06/30/2019 13:45'. physical (chief complaint). Description: Pt needs annual physical pt has chronic low back pain withsciatica and leg numbness, Pt takes norco and neurontin. Pt has neuropathy symptoms Pt has DM. Pt takes metformin, amaryl and also basaglar. pt again missed his steven with endo at [facility] and he needs insulin refill. his BG is around 170s. pt denies any hypoglycemia pt denies any polyuria, polydipsia. Pt has CAD, Pt takes pravastatin. Pt sees cardiology Pt takes lisinopril He denies any chest pain, Pt has RLS Pt doing ok with requip pt has mild sleep apnea, pt does have fatigue Pt denies any other complaints Plan Of Treatment Date Type Action Status Goal Tobacco cessation counseling completed Goal Special diet education compl eted Goal Tobacco cessation counseling completed Goal Special diet education compl eted Goal Tobacco cessation counseling completed Goal Special diet education compl eted Goal Tobacco cessation counseling completed Goal Special diet education compl eted Goal Special diet education compl eted Goal Tobacco cessation counseling completed Goal Tobacco cessation counseling completed Goal Special diet education compl eted Goal Special diet education compl eted Goal Tobacco cessation counseling completed Goal Tobacco cessation counseling completed Goal Special diet education compl eted Goal Tobacco cessation counseling completed Goal Special diet education compl eted Goal Tobacco cessation counseling completed Goal Special diet education compl eted Goal Special diet education compl eted Goal Tobacco cessation counseling completed Goal Tobacco cessation counseling completed Goal Special diet education compl eted Goal Tobacco cessation counseling completed Goal Special diet education compl eted Goal Special diet education compl eted Goal Tobacco cessation counseling completed Goal Special diet education compl eted Goal Tobacco cessation counseling completed Referral Ordered: SLEEP STUDY, ATTENDED ordered Referral Ordered: Reji Roberts -[facility]opathic Physicians : Internal Medicine : Cardiovascular Disease (related to Coronary artery disease of [place] coronary artery without angina pectoris) ordered Referral Referred To: Reji Roberts [address] [place], [place] [address] Ordered: Referrals: Allopathic & Osteopathic Physicians : Internal Medicine : Cardiovascular Disease. Reji Roberts. Evaluate and treat ordered Referral Ordered: CT THORAX W/DYE ordered Referral Ordered: LUMBAR XRAY AP AND LAT ONLY ordered Referral Ordered: Moris Rowley -[facility] : Internal Medicine : Endocrinology, Diabetes & Metabolism (related to Type 2 diabetes mellitus with diabetic nephropathy) ordered Referral Referred To: Moris Rowley [address] [place], [place] [id number] Ordered: Referrals: Allopathic & Osteopathic Physicians : Internal Medicine : Endocrinology, Diabetes & Metabolism. Moris Rowley. Evaluate and treat ordered Referral Ordered: CHEST X-RAY PA/LAT TWO-VIEWS ordered History Of Present Illness Encounter Date Complaint History Of Prese nt Illness physical Pt needs annual physical pt has chronic low back pain with sciatica and leg numbness, Pt takes norco and neurontin. Pt has neuropathy symptoms Pt has DM. Pt takes metformin, amaryl and also basaglar. pt again missed his steven with endo at [facility] and he needs insulin refill. his BG is around 170s. pt denies any hypoglycemia pt denies any polyuria, polydipsia. Pt has CAD, Pt takes pravastatin. Pt sees cardiology Pt takes lisinopril He denies any chest pain, Pt has RLS Pt doing ok with requip pt has mild sleep apnea, pt does have fatigue Pt denies any other complaints sleep apnea1 Pt has sleep paper inspector ea and chronic fatigue. Pt had positive sleep study one year ago. his cpap was denied by insurance Pt does feel fatigue and epworth score is 12 DM Pt is on metform in and amaryl and basaglar. pt is on 40 units basaglar nightly now his BG is around 150s Pt denies any hypoglycemia Pt denies any polyuria, polydipsia Pt does have neuropathy and he takes neurontin chronic pain1 Pt has chronic l ow back pain Pt has mild sciatica and leg numbness pt failed NSAID and ultram Pt takes norco and Neurontin and doing ok. 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 Pt supposes to do split night study but he was told by sleep lab that insurance denied it. RLS Pt has RLs Pt ta kes requip and doing ok pt denies any leg pain at night sinus1 Pt has sinus all ergy and he uses flonase daily Pt needs refill pt denies any drainage DM Pt has DM Pt taras es metformin, amaryl and basaglar. Pt states his Bg is around 150s. Pt denies any polyuria, polydipsia. Pt takes Neurontin for neuropathy symptoms. pt has steven with endo in 3 weeks. back pain1 Pt has chronic b ack pain pt denies any worsening pain Pt denies any loss of bladder control Pt failed NSAID and ultram sleep apnea1 Pt has sleep paper inspector ea Pt has steven for cpap tonight at [place] CAD Pt has CAD Pt lewis s LAD occlusion. Pt denies any chest pain. 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 Pt denies any myalgia. pt states that no stent or angioplasty was done pain1 Pt has chronic l ow back pain Pt denies any worsening pain Pt denies any loss of bladder control pt ambulate with cane pt failed NSAID and ultram sleep apnea1 Pt has sleep paper inspector ea pt does snore and he feels tired Pt sometimes has difficulty with breathing at night. Pt feels tired in the morning and rest of the day Pt had positive sleep study last year but no cpap was done?? colon1 pt had benign co lonoscopy last year with benign polyp. Pt denies any Gi issue HTN Pt takes lisinop ril. his Bp is borderline chronic pain1 Pt has chronic l ow back pain Pt takes norco PRN for pain and neurontin and doing ok. Pt does walk with cane. Pt denies any worsening pain. Pt denies any loss of bladder control CAD1 Pt has CAD and h e will angioplasty in two days. Pt denies any chest pain. HTN Pt has HTn pt ta kes lisinopril. Pt needs refilled Pt denies any cough, chest pain, headache HLP Pt takes lipitor . Pt denies any myalgia. Pt needs refilled His lipid profile is ok back pain1 Pt has chronic l ow back pain pt denies any worsening pain. pt denies any loss of bladder control. Pt takes norco PRN for pain, Pt failed NSAID and ultram CAD1 Pt denies any ch est pain Pt has signs of CAD on CT scan. pt has not heard from cariology DM Pt has DM Pt taras es metformin and amaryl and basaglar. Pt states that his BG is around 150s Pt denies any polyuria, polydipsia. Pt still has not made steven with endo yet lung nodule1 Pt does not have any suspicious lung nodule on CT scan Pt has atelectasis vs scarring. Pt denies any hemoptysis, sob or cough CAD1 Pt has signs of coronary artery disease on Ct scan. Pt denies any chest pain fatty liver1 pt has fatty flower er on CT scan. Pt denies any abd pain or jaundice pain1 Pt has chronic l ow back pain. Pt denies any worsening pain Pt denies any loss of bladder control Pt has 6/10 pain, Pt failed NSAID and ultram lung nodule1 Pt denies any he moptysis, chest leticia, coughing, or sob. His chest CT is approved. bakc pain1 Pt has chronic l ow back pain Pt has sciatica and leg numbness pt denies any worsening pain. Pt failed NSAID and ultram chronic pain1 Pt has low back pain, pt has DDD Pt denies any sciatica or any loss of bladder control. Pt denies any worsening pain lung nodule Pt denies any so b, hemoptysis or cough .CT pending lung nodule1 Pt is a long soniya e smoker. Pt has lung nodule on chest x ray. Pt denies any sob .Pt denies any chest pain back pain1 Pt has chronic l ow back pain. Pt has multiple level of DDD. Pt denies any worsening pain. Pt feels stiffness around lumbar spine. Pt denies any loss of bladder control ferritin Pt has high ferr itin, liver appears ok on CT scan renal mass Pertinent negati ves include abdominal pain, dysuria, fever, headache, hematuria, irreg. heartbeat/palpitations, muscle weakness, nausea, visual changes, vomiting and weight loss. Additional information: Pt has left renal mass suspecting for renal carcinoma. Pt is seeing urology and he will have robotic left partial nephrectomy soon. DM Pt takes basagla r 25 units and metformin and amaryl and his BG is around 200 now. Pt has not heard from endo yet. Pt has neuropathy Pt sees podiatry. Pt is on neurontin now back pain1 Pt has chronic l ow back pain Pt has sciatica and bilateral leg numbness and tingling. Pt walks with cane. Pt failed NSAID and ultram Pt takes norco PRN for pain and doing ok renal mass1 Pt has renal mas s left side but unsure the nature of it. Pt denies any flank pain Pt is seeing urology and he will have CT of abdomen tomorrow HTN Pt takes lisinop ril and his BP is borderline today. pt denies any chest pain or headache DM Pt takes metform in and basaglar and also amaryl. his A1c is around 8.0. His BG is around 200 per patient. pt denies any polyuria polydipsia proteinuria1 Pt has proteinur ia. His renal function is ok restless leg Pt has restless leg syndrome. Pt doing ok with requip. He does not have any low iron. his ferritin is borderline high back pain1 Pt has chronic l ow back pain. Pt denies any worsening pain. Pt has right sciatica and some leg numbness. Pt walks with cane. Pt has bilateral leg weakness DM pt has DM. . Pt takes metformin, basaglar and amaryl. His BG is around 200. Pt denies any polyuria polydipsia. pt has mild neuropathy symptoms. back pain1 Pt has chronic s evere low back pain Pt has history of back surgery x 2 due to disc disease. Pt has mild sciatica and leg numbness. Pt denies any loss of bladder control. Pt states that norco helps but he has to take two at a time to help. pt also takes flexeril restless leg1 Pt has restless leg syndrome. Pt states that he has the urge to move his leg all the time. Pt told me he had negative sleep study last year. Pt used to take medication and see sleep MD but he could not anymore due to insurance change. renal CA1 Pt has left quinn l mass. Pt is seeing urology at [facility]. Pt is waiting for either partial nephrectomy or biopsy soon. Pt denies any flank pain Physical Pt needs annual physical. Pt has DM. pt takes basaglar, metformin and amaryl. Pt does not check BG. Pt told me insurance does not approve for glucometer. Pt denies any hypoglycemia. Pt takes lisinopril Pt has neuropathy. Pt takes neurontin Pt has tumor left kidney of unknown nature. Pt is seeing urology at [facility]. Pt has chronic low back pain with left sciatica and left leg numbness. pt uses cane. pt states that sometimes he fall due to left leg weakness. Pt also has left flank pain due to renal issue per pt. Pt is on ultram but does not help. her previous MD will not give him anything stronger for pain. Pt states that his pain is not well controlled. Pt denies any loss of bladder control Instructions Date Instruction Additional Infor siddharthion Weight management Related to Ciera ruiz for general adult medical exam w abnormal findings Special diet education Related t o Body mass index (BMI) 29.0-29.9, adult Special diet education Related t o Body mass index (BMI) 29.0-29.9, adult Increase physical activity. Rela rubi to Type 2 diabetes mellitus w/ diabetic neuropathy Special diet education Related t o Body mass index (BMI) 29.0-29.9, adult Weight management Related to Sle ep apnea Special diet education Related t o Body mass index (BMI) 28.0-28.9, adult Weight management Related to Sle ep apnea Weight management Related to Cor onary artery disease of [place] coronary artery without angina pectoris Special diet education Related t o Body mass index (BMI) 29.0-29.9, adult Increase physical activity Relat ed to Coronary artery disease of [place] coronary artery without angina pectoris Weight management Related to Cor onary artery disease of [place] coronary artery without angina pectoris Special diet education Related t o Body mass index (BMI) 29.0-29.9, adult Follow a low sodium diet. Relate d to Essential (primary) hypertension Special diet education Related t o Body mass index (BMI) 29.0-29.9, adult Follow a low sodium diet. Relate d to Essential (primary) hypertension Special diet education Related t o Body mass index (BMI) 29.0-29.9, adult Increase physical activity Relat ed to Restless legs syndrome Weight management Related to Res tless legs syndrome Special diet education Related t o Body mass index (BMI) 28.0-28.9, adult Increase physical activity Relat ed to Solitary lung nodule Special diet education Related t o Body mass index (BMI) 29.0-29.9, adult Increase physical activity Relat ed to Solitary lung nodule Weight management Related to Melony itary lung nodule Quit smoking Related to Solit corey lung nodule Increase physical activity Relat ed to Solitary lung nodule Special diet education Related t o Body mass index (BMI) 29.0-29.9, adult Special diet education Related t o Body mass index (BMI) 29.0-29.9, adult Increase physical activity Relat ed to Chronic pain syndrome Weight management Related to Chr onic pain syndrome Special diet education Related t o Body mass index (BMI) 29.0-29.9, adult Weight management Related to 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 Rela rbui to Type 2 diabetes mellitus w/ diabetic neuropathy Check blood sugar twice a day. 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
[2025-02-17] VITALS (32 sets, daily range): BP systolic 82–130; BP diastolic 63–78; PULSE 88–137; RESP 20–36; TEMP 36.5–37.8; O2SAT 70–100; BMI 17.9
--- NOTE | ~2025-02-17 | XR_ITS ---
XR chest port-a-cath/central 02/18/2025 08:36 Indication: Right IJ placement Procedure: AP portable chest Comparison: Comparison to multiple prior studies sequentially, with oldest reviewed study dated 02/17/2025. Findings: Persistent patchy bilateral airspace disease, compatible with pneumonia. No significant effusion. No pneumothorax. Right IJ central line tip in the SVC. Endotracheal tube tip 4 cm above the jacobo. NG tube in the stomach. Impression: 1: Right IJ central line tip in the SVC. No pneumothorax. 2: Patchy bilateral airspace disease unchanged, compatible with pneumonia. Reviewed, dictated and finalized at location O. Impression: 1: Right IJ central line tip in the SVC. No pneumothorax. 2: Patchy bilateral airspace disease unchanged, compatible with pneumonia.
--- NOTE | ~2025-02-17 | XR_ITS ---
EXAMINATION: XR chest 1V portable 02/17/2025 15:31 INDICATION: AMS TECHNIQUE:A single portable AP upright supine image of the chest was obtained. COMPARISON: CT lung screening 12/11/2023 FINDINGS: Lung volumes are low. Cervical hardware is noted. No pneumothorax. No pleural effusion. No free air under the diaphragm. Small to moderate-sized patchy opacities in the medial aspects of both lungs. IMPRESSION: 1: Small to moderate-sized patchy opacities in the medial aspects of both lungs. Differential includes but is not limited to pulmonary edema, pneumonia, atelectasis or possibly artifact from overlapping structures from low lung volumes. Correlate clinically. Consider frontal and lateral images of the chest or a chest CT for further assessment. Reviewed, dictated and finalized at location Q. IMPRESSION: 1: Small to moderate-sized patchy opacities in the medial aspects of both lung s. Differential includes but is not limited to pulmonary edema, pneumonia, atel ectasis or possibly artifact from overlapping structures from low lung volumes. Correlate clinically. Consider frontal and lateral images of the chest or a ch est CT for further assessment.
--- NOTE | ~2025-02-17 | US_ITS ---
US abdomen limited Indication: elevated LFTs Comparison: None Technique: Farias-scale and color Doppler images were obtained. Findings: LIVER: Liver limited by bowel gas. . GALLBLADDER/BILIARY: Gallbladder not visualized. CBD 3.2 mm. PANCREAS: Pancreas limited by bowel gas. Right Kidney: The right kidney was not demonstrated. Impression: Limited study. No acute process Reviewed, dictated and finalized at location A. Impression: Limited study. No acute process
--- NOTE | ~2025-02-17 | CT_ITS ---
EXAMINATION: CT chest abdomen pelvis w con DATE: 02/17/2025 17:11 CDT INDICATION: Sepsis. TECHNIQUE: Computed tomography (CT) of the chest, abdomen, and pelvis was performed with intravenous contrast. The dose-length product was 668.41 mGy-cm. COMPARISON: CT chest 12/19/2023 FINDINGS: CHEST CT: Cervical hardware is noted. No enlarged mediastinal or hilar lymph nodes. There are a few nonenlarged, nonspecific hilar and mediastinal lymph nodes. Heart is not enlarged. There are a few coronary artery calcifications. Thoracic aorta is not aneurysmal. Tracheobronchial tree is grossly patent. No pleural effusion. No pneumothorax. Moderate sized groundglass opacities scattered throughout both lungs most prominent in the lower lobes. In addition, there are small to moderate sized patchy consolidations scattered throughout both lungs most prominent in the lower lobes. Bones appear osteopenic. Multilevel degenerative change in the visualized spine. Moderate elevation of the right hemidiaphragm. ABDOMEN/PELVIS CT: Liver, spleen, adrenal glands, pancreas and gallbladder are unremarkable. Stomach is distended. Abdominal aorta is not aneurysmal. There is a Daniels catheter in the bladder. Mild concentric thickening of the calvo of the bladder. Small amount of nondependent air in the bladder which may be due to recent instrumentation or cystitis. Large amount of stool in the rectal vault. No enlarged lymph nodes identified in the abdomen and pelvis. Evaluation for lymphadenopathy is limited due to the lack of and perineal fat. Bones appear osteopenic. Extensive degenerative change throughout the visualized spine. Bones appear osteopenic. There are a few too small to characterize low-attenuation lesions in the kidneys. No hydronephrosis. Small amount of fat stranding with a few locules of air about the posterior aspect of the mid and distal sacrum. No obvious loculated fluid collection identified.. No convincing CT evidence for sacral osteomyelitis at this time. IMPRESSION: 1. Moderate sized groundglass opacities scattered throughout both lungs most prominent in the lower lobes. In addition, there are small to moderate sized patchy consolidations scattered throughout both lungs most prominent in the lower lobes. The findings are concerning for multilobar pneumonia. Other etiologies are possible but are felt to be less likely. Recommend follow-up to resolution. 2.There is a Daniels catheter in the bladder. Mild concentric thickening of the calvo of the bladder. Small amount of nondependent air in the bladder which may be due to recent instrumentation or cystitis. 3. Large amount of stool in the rectum. 4. The stomach is distended and filled with air. 5. Small amount of fat stranding with a few locules of air about the posterior aspect of the mid and distal sacrum. No obvious loculated fluid collection identified. No convincing CT evidence for sacral osteomyelitis at this time. Reviewed, dictated and finalized at location Q. IMPRESSION: 1. Moderate sized groundglass opacities scattered throughout both lungs most pr ominent in the lower lobes. In addition, there are small to moderate sized patc hy consolidations scattered throughout both lungs most prominent in the lower l obes. The findings are concerning for multilobar pneumonia. Other etiologies a re possible but are felt to be less likely. Recommend follow-up to resolution. 2.There is a Daniels catheter in the bladder. Mild concentric thickening of the w alls of the bladder. Small amount of nondependent air in the bladder which may be due to recent instrumentation or cystitis. 3. Large amount of stool in the rectum. 4. The stomach is distended and filled with air. 5. Small amount of fat stranding with a few locules of air about the posterior aspect of the mid and distal sacrum. No obvious loculated fluid collection iden tified. No convincing CT evidence for sacral osteomyelitis at this time.
--- NOTE | ~2025-02-17 | XR_ITS ---
EXAMINATION: XR chest 1V portable DATE: 02/21/2025 05:48 INDICATION: Intubated TECHNIQUE: frontal view of the chest was obtained. COMPARISON: Chest radiograph dated 02/20/2025 FINDINGS: Endotracheal tube tip 6.3 cm above the jacobo. Nasogastric tube tip in proximal side port in the body the stomach. Right internal jugular central venous catheter with distal tip at the high right atrium. Skinfolds project over the bilateral mid to lower lung zones. Pulmonary vascular congestion and increased interstitial opacities in the perihilar and lower lung zones. More patchy airspace opacities in the bilateral lower lung zones particularly on the left. No pleural effusion or pneumothorax. Heart size is normal. Partially visualized bilateral vertical beatriz and screw fixation for posterior spinal fusion in the region of the cervicothoracic junction. Suture anchors at the right humeral head likely related to prior rotator cuff repair. IMPRESSION: 1. Endotracheal tube tip 6.3 cm above the jacobo. Consider advancement by 4 cm. 2. Opacities in bilateral lower lung zones which could represent pneumonia, pulmonary edema, atelectasis or some combination thereof. Reviewed, dictated and finalized at location A. IMPRESSION: 1. Endotracheal tube tip 6.3 cm above the jacobo. Consider advancement by 4 cm. 2. Opacities in bilateral lower lung zones which could represent pneumonia, pul monary edema, atelectasis or some combination thereof.
--- NOTE | ~2025-02-17 | XR_ITS ---
EXAMINATION: XR chest 1V portable DATE: 02/26/2025 05:42 INDICATION: Respiratory failure TECHNIQUE: frontal view of the chest was obtained. COMPARISON: Chest radiograph dated 02/25/25 FINDINGS: Endotracheal tube tip 6.0 cm above the jacobo. Nasogastric tube tip in proximal side port in the body of the stomach. Right internal jugular central venous catheter with distal tip near the superior cavoatrial junction. No significant change in airspace opacities in the left lower lung zone. No pulmonary edema, pleural effusion or pneumothorax. Skinfold projects of the right mid to upper lung. Heart size is normal. Instrumented lower cervical anterior spinal fusion. IMPRESSION: 1. Persistent opacity left lower lung zone which could represent atelectasis and/or pneumonia. 2. Endotracheal tube tip 6.0 cm above the jacobo. Consider advancement by 4 cm. Reviewed, dictated and finalized at location A. IMPRESSION: 1. Persistent opacity left lower lung zone which could represent atelectasis an d/or pneumonia. 2. Endotracheal tube tip 6.0 cm above the jacobo. Consider advancement by 4 cm.
--- NOTE | ~2025-02-17 | XR_ITS ---
EXAMINATION: XR chest 1V portable, 02/19/2025 5:08 CDT HISTORY: intubated COMPARISON: No comparisons available. Technique: Single view. Findings: Scattered small airspace opacities. No pneumothorax. Heart is normal size. Mediastinal and hilar contours are within normal limits. Bony thorax no acute abnormality. ET tube terminates 3 cm above the jacobo, nasogastric tube and the tumor, right central line in the SVC. Impression: Bilateral pneumonia Reviewed, dictated and finalized at location A. Impression: Bilateral pneumonia
--- NOTE | ~2025-02-17 | XR_ITS ---
EXAMINATION: XR abdomen obstructive series DATE: 02/20/2025 09:04 INDICATION: Evaluate for obstruction TECHNIQUE: Supine and upright views of the abdomen. FINDINGS: No prior studies for comparison. The visualized lung parenchyma is normal.. There is a nonobstructive bowel gas pattern. Gas and stool are seen throughout the colon to the level of the rectum. There is no free air. NG tube in the stomach. Moderate rectal fecal loading. There is severe lumbar spondylosis. There are bibasilar infiltrates which may represent edema or pneumonia. IMPRESSION: 1. No acute abdominal abnormality. 2: Bibasilar infiltrates may represent edema or pneumonia. Reviewed, dictated and finalized at location O.
--- NOTE | ~2025-02-17 | CT_ITS ---
EXAMINATION: CT brain wo con DATE: 02/17/2025 16:54 INDICATION: Altered mental status TECHNIQUE: Computed tomography (CT) of the head was performed without intravenous contrast. The dose-length product was 681.00 mGy-cm. COMPARISON: None FINDINGS: No acute intracranial. No mass effect. No midline shift. No hydrocephalus. There are several low density regions scattered throughout the periventricular and deep white matter which are favored to represent chronic ischemic white matter change. No skull fracture. Paranasal sinuses and mastoid air cells are clear. IMPRESSION: 1. No acute intracranial hemorrhage. No mass effect. 2. Probable chronic ischemic white matter change. Reviewed, dictated and finalized at location Q.
--- NOTE | ~2025-02-17 | XR_ITS ---
XR chest 1V portable 02/20/2025 05:43 Indication: Respiratory distress Procedure: AP portable chest Comparison: Comparison to multiple prior studies sequentially, with oldest reviewed study dated 02/17/2025. Findings: Heart size normal. Right IJ central line tip in the SVC. Patchy bilateral airspace disease unchanged, compatible with pneumonia. No pneumothorax. No acute osseous abnormality. Tubes and lines in stable position. Impression: 1: Stable patchy bilateral airspace disease, compatible with pneumonia. Reviewed, dictated and finalized at location O. Impression: 1: Stable patchy bilateral airspace disease, compatible with pneumonia.
--- NOTE | ~2025-02-17 | XR_ITS ---
EXAMINATION: XR chest 1V portable DATE: 02/22/2025 05:26 INDICATION: Pneumonia. Respiratory failure. TECHNIQUE: frontal view of the chest was obtained. COMPARISON: Chest radiograph dated 02/21/25 FINDINGS: Endotracheal tube tip 5.2 cm above the jacobo. Nasogastric tube tip in proximal side port in the body the stomach. Right internal jugular central venous catheter tip at the superior cavoatrial junction. The airspace opacities in bilateral lower lung zones, left greater than right and which appear slightly improved. No pleural effusion or pneumothorax. Heart size is normal. IMPRESSION: 1. Slight decrease in opacities in the bilateral lower lung zones, left greater than right, which could represent improving pneumonia and/or atelectasis. Reviewed, dictated and finalized at location A.
--- NOTE | ~2025-02-17 | XR_ITS ---
EXAMINATION: XR chest 1V portable DATE: 02/25/2025 06:06 INDICATION: Respiratory failure TECHNIQUE: frontal view of the chest was obtained. COMPARISON: Chest radiograph dated 02/24/25 FINDINGS: Endotracheal tube tip 4 cm above the jacobo. Nasogastric tube tip in proximal side port in the body of the stomach. Right internal jugular central venous catheter with distal tip at the superior cavoatrial junction. Persistent opacities in the left lower lung zone. No new airspace opacities, pulmonary edema, pleural effusion or pneumothorax. Heart size is normal. Partially visualized beatriz and lateral mass screw fixation for lower cervical posterior spinal fusion. IMPRESSION: 1. Persistent opacity left lower lung zone which could represent atelectasis and/or pneumonia. Reviewed, dictated and finalized at location A. IMPRESSION: 1. Persistent opacity left lower lung zone which could represent atelectasis an d/or pneumonia.
--- NOTE | ~2025-02-17 | XR_ITS ---
EXAMINATION: XR chest ET placement, XR abdomen gastric tube insert DATE: 02/17/2025 20:16 INDICATION: Endotracheal tube and nasogastric tube placement TECHNIQUE: 1. Frontal view of the chest was obtained. 2. Frontal view of the abdomen was obtained. COMPARISON: Chest CT dated 02/17/2025 FINDINGS: Chest: Endotracheal tube tip 3.5 cm above the jacobo. Patchy airspace opacities in bilateral lower lungs and in the medial right mid and upper lung zones consistent with multifocal pneumonia. No pleural effusion or pneumothorax. Heart size is normal. Abdomen: Nasogastric tube tip in proximal side port in the body the stomach which is significantly distended with gas IMPRESSION: 1. Endotracheal tube and nasogastric tubes in expected position. 2. Patchy bilateral airspace opacities consistent with multifocal pneumonia. Reviewed, dictated and finalized at location A. IMPRESSION: 1. Endotracheal tube and nasogastric tubes in expected position. 2. Patchy bilateral airspace opacities consistent with multifocal pneumonia.
--- NOTE | ~2025-02-17 | US_ITS ---
EXAMINATION: US renal BI DATE: 02/20/2025 14:36 INDICATION: Elevated creatinine TECHNIQUE: Multiple ultrasound grayscale images of the kidneys were obtained. COMPARISON: CT dated 02/17/2025 FINDINGS: The right kidney measures 11.2 x 8.8 x 6.4 cm. The left kidney measures 12.1 x 6.4 x 9.3 cm. The kidneys demonstrate normal echogenicity. There is no hydronephrosis in either kidney. No stones identified. Daniels catheter within the bladder which demonstrates wall thickening with trabeculated mucosal surface suggestive of sequela chronic outlet obstruction. There is mild scattered echogenic debris within the bladder. IMPRESSION: 1. Normal kidneys without hydronephrosis. 2. Diffuse trabeculated bladder wall thickening suggestive of sequela of chronic outlet obstruction. Reviewed, dictated and finalized at location A. IMPRESSION: 1. Normal kidneys without hydronephrosis. 2. Diffuse trabeculated bladder wall thickening suggestive of sequela of chroni c outlet obstruction.
--- NOTE | ~2025-02-17 | XR_ITS ---
EXAMINATION: XR chest 1V portable DATE: 03/03/2025 05:43 INDICATION: Mechanical ventilation TECHNIQUE: frontal view of the chest was obtained. COMPARISON: Chest radiograph dated 02/28/25 FINDINGS: Endotracheal tube has been replaced with tracheostomy tube which is in expected position at the thoracic inlet. Right internal jugular central venous catheter with distal tip at the superior cavoatrial junction. Skinfolds project over the lateral aspect of the bilateral mid and lower lungs. Interval improvement in opacities at the left lung base which could represent atelectasis and/or resolving pneumonia. No new airspace opacities, pulmonary edema, pleural effusion or pneumothorax. The cardiomediastinal silhouette is normal. Lower cervical instrumented posterior spinal fusion. IMPRESSION: 1. Improving opacity left lower lung zone which could represent atelectasis and/or resolving pneumonia. Reviewed, dictated and finalized at location A. IMPRESSION: 1. Improving opacity left lower lung zone which could represent atelectasis and /or resolving pneumonia.
--- NOTE | ~2025-02-17 | XR_ITS ---
XR chest 1V portable 02/18/2025 06:04 Indication: Respiratory distress. Intubation. Procedure: AP portable chest Comparison: Comparison to multiple prior studies sequentially, with oldest reviewed study dated 02/17/2025. Findings: Endotracheal tube tip 6.2 cm above the jacobo. NG tube in the stomach. Persistent bibasilar airspace disease, compatible with pneumonia. No significant effusion. No pneumothorax. Impression: 1: Bibasilar airspace disease without significant change, compatible with pneumonia. Reviewed, dictated and finalized at location O. Impression: 1: Bibasilar airspace disease without significant change, compatible with pneum onia.
--- NOTE | ~2025-02-17 | XR_ITS ---
EXAMINATION: XR chest 1V portable DATE: 02/24/2025 05:34 INDICATION: Respiratory failure TECHNIQUE: frontal view of the chest was obtained. COMPARISON: Chest radiograph dated 02/22/2025 FINDINGS: Endotracheal tube tip 2.3 cm above the jacobo. Nasogastric tube tip in proximal side port in the body the stomach. Right internal jugular central venous catheter with distal tip near the superior cavoatrial junction. Skinfold projects over the lateral aspect of the lungs. Persistent airspace opacities in the left lower lung zone. No pleural effusion or pneumothorax. Heart size is normal. Suture anchor at the left humeral head likely for prior rotator cuff repair. Partially visualized vertical beatriz and lateral mass screw fixation for lower cervical posterior spinal fusion. IMPRESSION: 1. Persistent patchy airspace opacities in the left lower lung zone consistent with atelectasis or pneumonia. Reviewed, dictated and finalized at location A.
--- NOTE | ~2025-02-17 | XR_ITS ---
EXAMINATION: XR chest 1V portable DATE: 02/27/2025 05:43 INDICATION: Respiratory failure TECHNIQUE: frontal view of the chest was obtained. COMPARISON: Chest radiograph dated 02/26/25 FINDINGS: Endotracheal tube tip 6.4 cm above the jacobo. Nasogastric tube tip in proximal side port in the body the stomach. Right internal jugular central venous catheter with distal tip at the superior cavoatrial junction. No change in airspace opacities in the left lower lung zone. Skinfold projects over the lateral right lower lung. No pulmonary edema, pleural effusion or pneumothorax. The cardiomediastinal silhouette is normal. Partially visualized instrumented lower cervical anterior spinal fusion. She drinks of the left humeral head consistent with prior rotator cuff repair. IMPRESSION: 1. Endotracheal tube tip 6.4 cm above the jacobo. Recommend 4 cm advancement. 2. No change in airspace opacity left lower lung zone which could represent atelectasis or pneumonia. Reviewed, dictated and finalized at location A. IMPRESSION: 1. Endotracheal tube tip 6.4 cm above the jacobo. Recommend 4 cm advancement. 2. No change in airspace opacity left lower lung zone which could represent ate lectasis or pneumonia.
--- NOTE | ~2025-02-17 | XR_ITS ---
EXAMINATION: XR chest 1V portable DATE: 02/28/2025 05:27 INDICATION: Respiratory failure TECHNIQUE: frontal view of the chest was obtained. COMPARISON: Chest radiograph dated 02/27/25 FINDINGS: Endotracheal tube tip 2.6 cm above the jacobo. Nasogastric tube tip in proximal side port in the body the stomach. Right internal jugular central venous catheter with distal tip near the superior cavoatrial junction. Persistent opacities in the left lower lung zone which could represent atelectasis or pneumonia. Right lung remains clear. No pulmonary edema, pleural effusion or pneumothorax. The cardiomediastinal silhouette is normal. Partially visualized lateral mass screws for incompletely visualized lower cervical posterior spinal fusion. Suture anchors at the left humeral head consistent with prior rotator cuff repair. IMPRESSION: 1. Lines and tubes in expected positions. 2. Persistent opacity left lower lung zone which could represent atelectasis or pneumonia. Reviewed, dictated and finalized at location A.
--- NOTE | 2025-02-17 14:42 | ECG_ITS ---
Test Date: 2025-02-17 14:47:53 Measurements Intervals [place] Rate: 123 P: 73 UT: 148 QRS: 148 QRSD: 93 T: 55 QT: 320 QTc: 459 Interpretive Statements SINUS TACHYCARDIA RIGHT AXIS DEVIATION INCOMPLETE RIGHT BUNDLE BRANCH BLOCK LOW QRS VOLTAGE IN LIMB LEADS BORDERLINE R WAVE PROGRESSION, ANTERIOR LEADS BORDERLINE ST-T WAVE ABNORMALITY- INFERIOR LEADS BASELINE ARTIFACT- II, III, AVL, AVF, V1-V6 ABNORMAL ECG No previous ECG available for comparison Electronically Signed On 02-17-2025 16:05:26 CDT by Reji Roberts D.O.
--- OUTSIDE RECORDS SUMMARY | 2025-02-17 14:54 | XMS_ITS | Clinical Summary ---
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 Bueno, in [place] and has had the hand numbness worked [...] time Assessment & Plan (2023 12:24 AM VIRTUAL ASSISTANT): Encouraged healthy lifestyle, good nutrition and exercise. [...] provided Assessment & Plan (2023 12:24 AM VIRTUAL ASSISTANT): Patient notes lower extremity weakness. Had back [...] 11/16/19 Assessment & Plan (2023 12:24 AM VIRTUAL ASSISTANT): 06/2022 EGD and colonoscopy was scheduled but it was cancelled because he didn't prep correctly. Will need to reschedule. Chronic constipation 11/15/2022 Cigarette smoker 11/04/2022 Assessment & Plan (11/04/2022 10:40 AM CDT): Encouraged smoking cessation. Discussed 3 minutes. Reviewed options for assistance with cessation. Reviewed halfway sequela associated with smoking. Pt declines assistance at this time but may contact the office at anytime for further help as they desire. Low-dose CT is due. Will place order at [facility]. Prostate cancer screening 11/04/2022 Assessment & Plan (11/04/2022 10:42 AM CDT): Check PSA Tobacco abuse 11/04/2022 Assessment & Plan (12/07/2023 9:37 PM CDT): Encouraged smoking cessation. Discussed 3 minutes. Reviewed options for assistance with cessation. Reviewed halfway sequela associated with smoking. Pt declines assistance at this time but may contact the office at anytime for further help as they desire. Mostly smoking cigars but still recommend cessation Assessment & Plan (2023 12:23 AM VIRTUAL ASSISTANT): Patient continues to smoke primarily cigars Myalgia 06/18/2022 Assessment & Plan (06/19/2022 12:02 AM VIRTUAL ASSISTANT): Patient has had acute cough and cold symptoms for the last week. Will check flu and COVID test. These were negative in the office so encouraged to continue to treat symptoms with [id number] cough and cold medication. If symptoms worsen [...] cardiology referral. Prefers to be seen in [place]. Will place the referral. Reminded patient if [...] cardiology referral. Prefers to be seen in [place]. Will place the referral. Reminded patient if [...] to go to Dr. Vee up in [place]. Assessment & Plan (06/01/2021 11:11 PM VIRTUAL ASSISTANT): Patient with history of rectal polyp per colonoscopy done in September of 2017 at [facility].. Due to have repeat colonoscopy for follow-up. [...] Mccloud Assessment & Plan (2023 12:23 AM VIRTUAL ASSISTANT): Continue per Dr. Sher sleep Medicine. Patient [...] filter and a mask. Dr. Mccloud, in [place], is who manages his sleep issues. His [...] nightly Assessment & Plan (06/01/2021 11:10 PM VIRTUAL ASSISTANT): Patient has not been using his CPAP regularly he is unsure if the machine is working correctly. Dr. Blackburn his previous PCP is who ordered the last sleep study. Will refer to Dr. Mccloud sleep specialist in [place] for further evaluation so we can get [...] loss. Will order CPAP device. Order to [facility] Home care Assessment & Plan (09/27/2019 [...] can be ordered. Pt is ok with [facility] Home Care. Microalbuminuria 09/27/2019 Assessment & Plan (04/19/2020 9:18 PM CDT): Avoid nephrotoxic drugs including NSAIDs. Monitor labs. Manage DM tightly. If continues to elevate may need to see nephrology Assessment & Plan (09/27/2019 10:39 AM CDT): Encouraged tighter control of DM to avoid halfway renal problems. Primary hypertension 09/05/2019 Assessment & Plan (05/14/2024 10:17 AM VIRTUAL ASSISTANT): Stable continue lisinopril Assessment & Plan (04/23/2024 10:38 AM CDT): Stable continue lisinopril Assessment & Plan (04/05/2024 5:26 AM CDT): Stressed importance of continued A1c control to minimize the halfway effects of diabetes. Bring accuchecks to office [...] prescribed. Assessment & Plan (2023 12:23 AM VIRTUAL ASSISTANT): Bp is stable/in acceptable range for any co-morbidities. Encouraged to limit sodium intake and exercise for weight control. Continue lisinopril 20 Assessment & Plan (05/30/2023 2:26 PM VIRTUAL ASSISTANT): This is a chronic condition which is [...] 20 Assessment & Plan (08/29/2022 12:54 PM VIRTUAL ASSISTANT): This is a chronic condition which is [...] prescribed. Assessment & Plan (05/31/2022 4:13 PM VIRTUAL ASSISTANT): This is a chronic condition which is [...] 20 Assessment & Plan (06/01/2021 11:09 PM VIRTUAL ASSISTANT): Bp is stable/in acceptable range for any [...] Reviewed options for assistance with cessation. Reviewed predatory animal exterminator sequela associated with smoking. Pt declines assistance [...] 08/19/2019 Assessment & Plan (05/04/2024 10:45 AM VIRTUAL ASSISTANT): This is a chronic condition which is [...] eye exam. last dilated eye exam was [facility]. Monofilament foot exam completed. 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 Goal is <30 Continue lisinopril Assessment & Plan (12/07/2023 9:38 PM CDT): Stressed importance of continued A1c control to minimize the halfway effects of diabetes. Bring accuchecks to office [...] last dilated eye exam was [facility] in [place] Monofilament foot exam completed. loss of protective [...] atorvastatin. Assessment & Plan (2023 12:22 AM VIRTUAL ASSISTANT): Stressed importance of continued A1c control to minimize the halfway effects of diabetes. Bring accuchecks to office [...] 9.1. Assessment & Plan (05/30/2023 2:25 PM VIRTUAL ASSISTANT): This is a chronic condition which is [...] but could not afford copay- applied for [employer] patient assistance for Soliqua Monitor blood sugar [...] Have tried to get him enrolled in [employer] patient assistance program but we have had complications receiving the right paperwork. Today I was able to access his security account and print off his most recent so security statement Monitor blood sugar 2x times a day. Encouraged annual eye exam. last dilated eye exam was [facility] in [place] Monofilament foot exam completed. loss of protective [...] of continued A1c control to minimize the halfway effects of diabetes. Bring accuchecks to office when instructed to do so. Check A1c about every 3-6 months. Take medication as prescribed. Get annual eye exam. Encouraged ROSARIO/Statin if able to tolerate. Encouraged weight control and encouraged diabetic diet and exercise. Continue per Sakina Ramesh Assessment & Plan (08/29/2022 12:55 PM VIRTUAL ASSISTANT): This is a chronic condition which is [...] Personally reviewed A1c -8.9% Forms provided for [employer] patient assistance program . Personally reviewed blood sugar -359, not at goal 80-180 Medication- Continue Tresiba u200 46units daily. Continue metformin 1000mg twice daily. Monitor blood sugar 2 times a day. Encouraged annual eye exam. last dilated eye exam was [facility] in [place] Monofilament foot exam completed. loss of protective [...] No history of macrovascular disease - [place]. Assessment & Plan (05/31/2022 4:15 PM VIRTUAL ASSISTANT): This is a chronic condition which is improving but not at goal due to not being able to afford his insulin co-pay Personally reviewed A1c -10.6 %, not at goal less than 7% Forms provided for [employer] patient assistance program. Personally reviewed blood sugar -295, not at goal 80-180 Medication- Continue Tresiba u200 46units daily. 5 samples of Toujeo max provided. Sampled of glucerna provided Continue metformin 1000mg twice daily. Monitor blood sugar 2 times a day. Encouraged annual eye exam. last dilated eye exam was [facility] in [place] Monofilament foot exam completed. loss of protective [...] No history of macrovascular disease - [place]. Assessment & Plan (04/17/2022 11:05 AM CDT): [...] last dilated eye exam was [facility] in [place] Monofilament foot exam completed. loss of protective [...] No history of macrovascular disease - [place]. Assessment & Plan (03/24/2022 5:49 PM CDT): Stressed importance of continued A1c control to minimize the halfway effects of diabetes. Bring accuchecks to office when instructed to do so. Check A1c about every 3-6 months. Take medication as prescribed. Get annual eye exam. Encouraged ROSARIO/Statin if able to tolerate. Encouraged weight control and encouraged diabetic diet and exercise. He follows with Sakina Ramesh nurse practitioner in [place]. Currently states sugars have been a little [...] last dilated eye exam was [facility] in [place] Monofilament foot exam completed. loss of protective [...] No history of macrovascular disease - [place]. Assessment & Plan (12/04/2021 10:49 AM CDT): [...] last dilated eye exam was [facility] in [place] Monofilament foot exam completed. loss of protective [...] No history of macrovascular disease - [place]. Assessment & Plan (11/13/2021 4:35 PM CDT): Stressed importance of continued A1c control to minimize the predatory animal exterminator effects of diabetes. Bring accuchecks to office when instructed to do so. Check A1c about every 3-6 months. Take medication as prescribed. Get annual eye exam. Encouraged ROSARIO/Statin if able to tolerate. Encouraged weight control and encouraged diabetic diet and exercise. Continue per Sakina Ramesh nurse practitioner in [place]. Unsure if the syncopal type event could have been a hypoglycemic event so will continue to work with her closely and work on tight control of his diabetes. Assessment & Plan (08/30/2021 1:26 PM VIRTUAL ASSISTANT): This is a chronic condition which is [...] last dilated eye exam was [facility] in [place] Monofilament foot exam completed. loss of protective [...] No history of macrovascular disease - [place]. Assessment & Plan (06/01/2021 11:07 PM VIRTUAL ASSISTANT): Stressed importance of continued A1c control to minimize the predatory animal exterminator effects of diabetes. Bring accuchecks to office when instructed to do so. Check A1c about every 3-6 months. Take medication as prescribed. Get annual eye exam. Encouraged ROSARIO/Statin if able to tolerate. Encouraged weight control and encouraged diabetic diet and exercise. Continue per Sakina Ramesh nurse practitioner Assessment & Plan (05/31/2021 2:36 PM VIRTUAL ASSISTANT): This is a chronic condition which is not at goal. Personally reviewed A1c -8.6, not at goal less than 7% Personally reviewed blood sugar -275 goal 80-180 Medication- stop Lantus and glimeperide. Start Soliqua 30 units and will titrate up. Covered on insurance plan. Monitor blood sugar 2 times a day. Encouraged annual eye exam. last dilated eye exam was [facility] in [place] Monofilament foot exam completed. loss of protective [...] No history of macrovascular disease - [place]. Assessment & Plan (10/18/2020 10:38 PM CDT): Stressed importance of continued A1c control to minimize the halfway effects of diabetes. Bring accuchecks to office when instructed to do so. Check A1c about every 3-6 months. Take medication as prescribed. Get annual eye exam. Encouraged ROSARIO/Statin if able to tolerate. Encouraged weight control and encouraged diabetic diet and exercise. Continue per endocrinology Mixed hyperlipidemia 08/19/2019 Assessment & Plan (05/14/2024 10:17 AM VIRTUAL ASSISTANT): Stable continue Lipitor Assessment & Plan (05/04/2024 10:47 AM VIRTUAL ASSISTANT): >>ASSESSMENT AND PLAN FOR MIXED HYPERLIPIDEMIA WRITTEN ON 04/23/2024 10:38 AM BY RADHA HOWARD MD Stable continue Lipitor Assessment & Plan (05/04/2024 10:45 AM VIRTUAL ASSISTANT): This is a chronic condition which is [...] prescribed. Assessment & Plan (2023 12:22 AM VIRTUAL ASSISTANT): Encouraged patient to follow low fat/low chol diet like the Mediterranean diet. Increase good fats in the diet. Increase exercise. Monitor labs as needed. Continue atorvastatin Assessment & Plan (05/30/2023 2:25 PM VIRTUAL ASSISTANT): This is a chronic condition which is [...] prescribed. Assessment & Plan (05/04/2024 10:47 AM VIRTUAL ASSISTANT): >>ASSESSMENT AND PLAN FOR HYPERLIPIDEMIA ASSOCIATED WITH [...] atorvastatin Assessment & Plan (08/29/2022 12:54 PM VIRTUAL ASSISTANT): This is a chronic condition which is at goal. Goal is less than 70. Personally reviewed lipid panel. continue atorvastatin Encouraged to eat healthy, include fresh fruits and vegetables daily and avoid eating fried foods more than once per week. Encouraged to take medications as prescribed. Assessment & Plan (05/31/2022 4:14 PM VIRTUAL ASSISTANT): This is a chronic condition which is [...] prescribed. Assessment & Plan (08/30/2021 1:10 PM VIRTUAL ASSISTANT): This is a chronic condition which is not at goal. Goal is less than 70. Personally reviewed lipid panel. LDL- 91- changed to atorvastatin 40mg (high intensity) Encouraged to eat healthy, include fresh fruits and vegetables daily and avoid eating fried foods more than once per week. Encouraged to take medications as prescribed. Assessment & Plan (06/01/2021 11:08 PM VIRTUAL ASSISTANT): Encouraged patient to follow fat/low chol diet like the Mediterranean diet. Increase good fats in the diet. Increase exercise. Monitor labs as needed. Assessment & Plan (05/31/2021 2:29 PM VIRTUAL ASSISTANT): This is a chronic condition which is [...] 08/19/2019 Assessment & Plan (2023 12:23 AM VIRTUAL ASSISTANT): Continue per Dr. Sher sleep Medicine. Patient [...] Requip Assessment & Plan (06/01/2021 11:08 PM VIRTUAL ASSISTANT): Continue Requip Assessment & Plan (10/18/2020 10:39 [...] Reviewed options for assistance with cessation. Reviewed predatory animal exterminator sequela associated with smoking. Pt declines assistance at this time but may contact the office at anytime for further help as they desire. Assessment & Plan (12/14/2019 10:24 PM CDT): Encouraged cessation Assessment & Plan (09/27/2019 10:40 AM CDT): Encouraged smoking cessation. Discussed 3 minutes. Reviewed options for assistance with cessation. Reviewed predatory animal exterminator sequela associated with smoking. Pt declines assistance at this time but may contact the office at anytime for further help as they desire. Assessment & Plan (09/05/2019 4:35 PM CDT): Encouraged smoking cessation. Discussed 3 minutes. Reviewed options for assistance with cessation. Reviewed halfway sequela associated with smoking. Pt declines assistance [...] well Assessment & Plan (05/27/2023 9:29 AM VIRTUAL ASSISTANT): Weight/BMI is in healthy range. Continue healthy [...] 11/24/2023 Assessment & Plan (06/19/2022 12:01 AM VIRTUAL ASSISTANT): This is a significant, separately identifiable problem that was evaluated and managed on the same day as the wellness exam Persistent neck pain with movement. Does have some numbness down the arm. Has EMG with Dr. Campbell in [place] and the results are still pending. He [...] 11/24/2023 Assessment & Plan (06/19/2022 12:01 AM VIRTUAL ASSISTANT): This is a significant, separately identifiable problem [...] 11/24/2023 Assessment & Plan (06/19/2022 12:02 AM VIRTUAL ASSISTANT): Patient has had acute cough and cold symptoms for the last week. Will check flu and COVID test. These were negative in the office so encouraged to continue to treat symptoms with [id number]-lewadcx cough and cold medication. If symptoms worsen or do not resolve he is to follow up immediately. Cough 06/18/2022 11/24/2023 Assessment & Plan (06/19/2022 12:02 AM VIRTUAL ASSISTANT): Patient has had acute cough and cold symptoms for the last week. Will check flu and COVID test. These were negative in the office so encouraged to continue to treat symptoms with [id number]-[id number] cough and cold medication. If symptoms worsen or do not resolve he is to follow up immediately. Chest congestion 06/18/2022 11/24/2023 Assessment & Plan (06/19/2022 12:02 AM VIRTUAL ASSISTANT): Patient has had acute cough and cold symptoms for the last week. Will check flu and COVID test. These were negative in the office so encouraged to continue to treat symptoms with fhen-zyk-egykyaj cough and cold medication. If symptoms worsen or do not resolve he is to follow up immediately. Body aches 06/18/2022 11/24/2023 Assessment & Plan (06/19/2022 12:02 AM VIRTUAL ASSISTANT): Patient has had acute cough and cold symptoms for the last week. Will check flu and COVID test. These were negative in the office so encouraged to continue to treat symptoms with jpqi-rpr-bcqtfor cough and cold medication. If symptoms worsen or do not resolve he is to follow up immediately. Medicare annual wellness visit, subsequent 06/18/2022 11/03/2022 Assessment & Plan (06/19/2022 12:02 AM VIRTUAL ASSISTANT): Encouraged healthy lifestyle, good nutrition and exercise. [...] He is to follow-up with the his rn gyn in [place] soon as possible to review his control. [...] 06/01/20212021 Assessment & Plan (06/01/2021 10:52 AM VIRTUAL ASSISTANT): Obesity is unchanged. Discussed the patient's BMI. The BMI is above average. BMI management plan is completed. BMI Follow-up includes: nutrition counseling, exercise counseling and education provided. BMI 30.0-30.9,adult 06/01/2021 11/02/19 Assessment & Plan (06/01/2021 10:52 AM VIRTUAL ASSISTANT): Obesity is unchanged. Discussed the patient's BMI. The BMI is above average. BMI management plan is completed. BMI Follow-up includes: nutrition counseling, exercise counseling and education provided. Medicare annual wellness visit, subsequent 06/01/2021 03/24/2022 Assessment & Plan (06/01/2021 11:12 PM VIRTUAL ASSISTANT): Encouraged healthy lifestyle, good nutrition and exercise. [...] Moran Assessment & Plan (06/01/2021 11:12 PM VIRTUAL ASSISTANT): Patient has noticed decreased hearing. His ear canals are clear. Will refer to ENT/audiology for further evaluation Close exposure to COVID-19 virus 05/20/2021 06/01/2021 Assessment & Plan (05/20/2021 5:45 PM VIRTUAL ASSISTANT): Patient to presume positive COVID until results are available and self isolate for 10 days from the onset of sxs. Check COVID test thru [facility] collection site in [place]. If positive, complete quarantine and consider monoclonal [...] water often. If needed, use a hand flat bed knitter that contains at least 60% alcohol. Clean [...] 11/04/2022 Assessment & Plan (06/01/2021 11:12 PM VIRTUAL ASSISTANT): Encouraged smoking cessation. Discussed 3 minutes. Reviewed options for assistance with cessation. Reviewed halfway sequela associated with smoking. Pt declines assistance at this time but may contact the office at anytime for further help as they desire. Assessment & Plan (10/18/2020 10:41 PM CDT): Encouraged smoking cessation. Discussed 3 minutes. Reviewed options for assistance with cessation. Reviewed predatory animal exterminator sequela associated with smoking. Pt declines assistance [...] microalbuminuria, with long-term current use of insulin ([facility]) 09/27/2019 05/31/2021 Assessment & Plan (10/18/2020 10:39 PM CDT): Stressed importance of continued A1c control to minimize the predatory animal exterminator effects of diabetes. Bring accuchecks to office [...] of continued A1c control to minimize the predatory animal exterminator effects of diabetes. Bring accuchecks to office [...] of continued A1c control to minimize the predatory animal exterminator effects of diabetes. Bring accuchecks to office [...] of continued A1c control to minimize the predatory animal exterminator effects of diabetes. Bring accuchecks to office when instructed to do so. Check A1c about every 3-6 months. Take medication as prescribed. Get annual eye exam. Encouraged ROSARIO/Statin if able to tolerate. Encouraged weight control and encouraged diabetic diet and exercise. Continue per endocrinology Assessment & Plan (12/14/2019 10:22 PM CDT): Stressed importance of continued A1c control to minimize the predatory animal exterminator effects of diabetes. Bring accuchecks to office [...] of continued A1c control to minimize the halfway effects of diabetes. Bring accuchecks to office when instructed to do so. Check A1c about every 3-6 months. Take medication as prescribed. Get annual eye exam. Encouraged ROSARIO/Statin if able to tolerate. Encouraged weight control and encouraged diabetic diet and exercise. Refer back to [employer] to manage his DM. He is on Gabapentin 60mg bid for neuropathy. Encounters Date Type Department Care Team Description 01/21/2025 Telephone [facility] Family Medicine [address] [place] [address] Cassie Rg PA 01/07/2025 Telephone [facility] [place] [address] [place] [address] [address] [place] [address] Sakina Ramesh NP 12/16/2024 Orders Only [facility] Health Information Management [address] [place] [address] Scanning, Provider 12/06/2024 Telephone [facility] Accountable Care Organization [address] [place] [address] Lizabeth Loza MA Unsuccessful Phone Call 1 ([employer] DM eye exam ) 12/06/2024 Telephone [facility] [address] [address] To Dominguez MD 12/06/2024 Telephone [facility] [address] [place] [address] To Dominguez MD from Last 3 Months Immunizations Immunization Administration [...] on file Legal Sex Male 1:19 PM VIRTUAL ASSISTANT Gender Identity Not on file Sexual Orientation Not on file Occupation Industry Job Start Date Job End Date Disabled Not on file Not on file Not on file Obstetrics History Last Filed Vital Signs Vital Sign Reading Time Taken Comments Blood Pressure 150/95 06/10/2024 10:27 AM VIRTUAL ASSISTANT Pulse 94 06/10/2024 10:27 AM VIRTUAL ASSISTANT Temperature 36.9 C (98.5 F) 03/25/2024 11:00 AM CDT Respiratory Rate 18 02/09/2024 9:00 PM CDT Oxygen Saturation 100% 06/10/2024 10:27 AM VIRTUAL ASSISTANT Inhaled Oxygen Concentration - - Weight 75.3 kg (166 lb) 05/12/2024 10:11 AM VIRTUAL ASSISTANT Height 170.2 cm (5' 7.01) 06/10/2024 10:[address] Body Mass Index 26 05/12/2024 10:11 AM VIRTUAL ASSISTANT Plan of Treatment Health Maintenance Due Date [...] history exists Well Visit 65+ 11/23/2024 11/24/2023, 12/10/2022, 11/04/2022, Additional history exists Prostate Cancer Screening-PSA [...] POCT HEMOGLOBIN A1C Routine 05/04/2024 10:28 AM VIRTUAL ASSISTANT Type 2 diabetes mellitus with hypoglycemia without [...] W WO CONTRAST Routine 07/24/2017 6:00 PM VIRTUAL ASSISTANT from Last 3 Months or Most Recently Relevant to Health Maintenance Results * SCAN - LABS (12/16/2024) us Provider Scanning Edited Result - Final * POCT hemoglobin A1c (05/04/2024 10:28 AM VIRTUAL ASSISTANT) Hemoglobin A1C, POC 5.5 4.0 - 5.6 % Blood 05/04/2024 10:2 8 AM VIRTUAL ASSISTANT us Sakina Ramesh NP POINT OF CARE TEST ORDERABLES F inal Result * Hepatitis panel, acute Blood (04/08/2024 10:12 AM CDT) Hep A IgM Nonreactive Nonreactive Comment: Interpretive Data: If Hep A IgM Ab is reported as Equivocal, a new sample should be drawn in two weeks for testing. Current interpretive data was last revised on 19. Testing performed by: [facility], [address] [place] [address]., [id number] Hep B core IgM Nonreactive Nonreactive Naomy MEMBRENO (FAVIO) Comment: Interpretive Data If HepB Core IgM Ab is reported as Equivocal, a new sample should be drawn in two weeks for testing. Current interpretive data was last revised on 19. Testing performed by: [facility], [address] [place] [address]., [id number] Hep C Ab Nonreactive Nonreactive KATHY MEMBRENO [...] last revised on 2019. Testing performed [facility]: [facility] [facility], [address] [place] [address]., [address] HepBsAg Nonreactive Nonreactive KATHY MEMBRENO (FAVIO) Comment:Testing performed by : [address] [address] Blood 04/08/2024 10:1 2 AM CDT 04/08/2024 7:02 PM CDT Cassie ROSALES LAB MICROBIOLOGY - GENERAL ORDERABLES Final Result KATHY MEMBRENO (FAVIO) 1 [facility] Department of Laboratories [place], [place] [id number] * (ABNORMAL) DIABETES EYE EXAM (03/04/2024 3:17 PM CDT) SCRIBED DIABETIC DILATED EYE EXAM Abnormal Historical Provider MD HEALTH MAINTENANCE Edited Result - Final * [...] MD LAB BLOOD ORDERABLE S Final Result [facility] [address] [facility] Department [place] [address] * CT Lung Cancer Screening (12/22/2023 3:43 PM CDT) Anatomical Region Laterality Modality Chest N/A Computed Tomogra phy Cassie ROSALES IMG CT PROCEDURES Final Re sult * (ABNORMAL) Albumin Creatinine Ratio, Urine (09/19/2023 10:24 AM CDT) Albumin Ur 2,321.8 mg/L Comment: Interpretive Data No reference range established. Current interpretive data was last revised 2018. Testing performed by: [facility], [address] [place] [address]., [address] Creatinine Ur 301.4 mg/dL KATHY MEMBRENO (FAVIO) Comment: Interpretive Data No reference range established. Current interpretive data was last revised 2018. Testing performed by: [facility], [address] [place] [address]., [address] Albumin Creatinine Ratio, Ur 770(H) 1 - 29 mg/g KATHY MEMBRENO (FAVIO) Comment:Testing performed by : [facility], [address] [place] [address]., [address] Urine 09/19/2023 10:2 4 AM CDT 09/19/2023 4:00 PM CDT us Sakina Ramesh NP LAB URINE ORDERABLES Final Resu lt KATHY MEMBRENO (FAVIO) 1 [facility] Department [place] [address] * (ABNORMAL) Lipid panel (09/19/2023 10:24 AM [...] last revised on 2018. Chol/HDL ratio 4 YOHANNE María Elena MEMBRENO (FAVIO) Blood 09/19/2023 10:2 4 AM CDT 09/19/2023 1:29 PM CDT Narrative KATHY MEMBRENO (PEORIA) - 09/19/2023 2:01 PM CDT These lab test should be done fasting. This means do not eat or drink for at least 12 hours prior to getting your blood drawn. Sakina Ramesh HOUSECLEANER FLOOR LAB BLOOD ORDERABLES Final Resu lt Performing Organization Address City/[facility]/ZIP Co de Phone Number KATHY MEMBRENO (PEORIA) 1 [facility] [place] [address] * PSA screen (12/02/2022 9:00 AM CDT) PSA-Total 1.09 <=5.40 ng/mL KATHY MEMBRENO (PEORIA) Comment: Interpretive Data AGE SEX REFERENCE INTERVAL [...] Cassie ROSALES LAB BLOOD ORDERABLES Final Result Performing Organization Address City/[facility] Co de Phone Number KATHY MEMBRENO ([place]ORIA) 1 [place] [address] * HM COLONOSCOPY (10/10/2017) Colonoscopy Abnormal Comment:rectal polyp Historical Provider HEALTH MAINTENANCE Final Result * CT Abdomen Pelvis W WO Contrast (07/24/2017 6:00 PM VIRTUAL ASSISTANT) Anatomical Region Laterality Modality Body N/A Computed Tomogra phy 07/24/2017 6:00 PM VIRTUAL ASSISTANT Narrative 07/24/2017 6:33 PM VIRTUAL ASSISTANT JOSE CARVALHO M.D. FINAL REPORT ACC# Date Time Exam [id number] Jul 24, 2017 12:00:[id number] Abd & Pelvis wwo cont EXAMINATION: [...] CARVALHO M.D. on Jul 24 2017 12:31P [id number] CARVALHO M.D. FINAL REPORT Attending: BONNIE REGAN Requesting: IRWIN BOWMAN Requesting Fax: Attending Fax: Attending ID: [id number] Requesting ID: [id number] Report To 1 ID: [id number] Report To 1 Name: , Report To 1 FAX: NextGen Order #: Procedure Note Miscellaneous, Not In File - 07/24/2017 JOSE CARVALHO M.D. FINAL REPORT ACC# Date Time Exam [id number] Jul 24, 2017 12:00:[id number] Abd & Pelvis wwo cont EXAMINATION: [...] CARVALHO M.D. on Jul 24 2017 12:31P [id number] CARVALHO M.D. FINAL REPORT Attending: BONNIE REGAN Requesting: IRWIN BOWMAN Requesting Fax: Attending Fax: Attending ID: [id number] Requesting ID: [id number] Report To 1 ID: [id number] Report To 1 Name: , Report To 1 FAX: NextGen Order #: Irwin Bowman MD IMG CT PROCEDURES Final Re sult from Last 3 Months or Most Recently Relevant to Health [place] [address] [facility] MDCR HMO REF [employer] MEDICARE GOLD MEDICARE Advance Directives For more information, please contact: [phone] * Full Code (Latest Code Status on File) Date Activated Date Inactivated Comments 11/26/2022 10:28 AM 12/02/2022 1:56 PM * Full Code Date Activated Date Inactivated Comments 11/26/2022 10:28 AM 11/26/2022 10:28 AM Care Teams Footwear Sales Leader Relationship Specialty Start Date End Date Cassie Rg PA [address] [place] [address] PCP - General Internal Medicine 08/17/21 [place] [address] [place] [address] JO-ANN COREY [address] [place] [address] Consulting Physician Neurology 11/04/22 To Dominguez MD [address] [place] [address] [address] [place] [address] Consulting Physician Neurology 11/24/23
--- OUTSIDE RECORDS SUMMARY | 2025-02-17 14:55 | XMS_ITS | Encounter Summary ---
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
--- OUTSIDE RECORDS SUMMARY | 2025-02-17 14:55 | XMS_ITS | Encounter Summary ---
Author Organization [facility] Healthcare Address [address] [place] [address] Care Team Providers Care Flat Locker Name Role Phone Sushma Rg Primary Care Provider [phone] Essence Mccloud MD Unavailable To Dominguez MD Unavailable [phone] Reason for Visit * Auth/Cert (Routine) Specialty Diagnoses / Procedures Referred By Rahul t Referred To Contact Diagnoses Encounter for screening colonoscopy History of colonic polyps Encounter for screening colonoscopy [Z12.11] History of colonic polyps [Z86.0100] Procedures CT COLONOSCOPY FLX DX W/COLLJ SPEC WHEN PFRMD COLONOSCOPY Referral ID Status Reason Start Date Expiration Date Visits Re quested Visits Authorized [id number] 1 1 Encounter Details Date Type Department Care Team (Late st Contact Info) Description 11/16/2024 Hospital Encounter [facility] 1 [place] [address] Margi Vee MD [address] [place] [address] Social History Tobacco Use Types Packs/Day Years [...] on file 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
--- OUTSIDE RECORDS SUMMARY | 2025-02-17 14:55 | XMS_ITS | Clinical Summary ---
Author Organization [facility] Address [address] [place] [place] [address] Care Team Providers Care Purchasing Specialist Name Role Phone Bro Hernandez MD Unavailable [phone] David Saucedo MD Primary Care Provider [phone] Source Comments [facility],non-owned Affiliates and Associated Physician Practices is amultiple site organization consisting of ambulatory clinics and hospital sitesin [place], [place], [place] and [place]. This disclosure is being madepursuant to the Care Everywhere program and may not contain all information available regarding this patient. Last updated 18.[facility] Allergies Active Allergy Reactions Criticality Noted Date [...] fluticasone propionate (FLONASE) 50 MCG/ACT nasal spray [place] 2 (two) sprays into each nostril once [...] mL 08/31/19 25 Active DropSafe Safety Pen [place] 31G X 6 MM MISC as directed [...] Glucagon (Baqsimi One Pack) 3 MG/DOSE POWD [place] 3 mg into the nose as directed Active amoxicillin-cla vulanate (Augmentin) 500-125 MG tablet Take 1 (one) tablet by mouth 2 times daily 09/28/19 25 Active HYDROcodone-libby taminophen (Tuscarora) 5-325 MG tablet 09/28/19 25 Active Santyl [...] 08/19/2019 Impotence due to erectile dysfunction 03/01/2019 GUEVAAR (obstructive sleep apnea) 04/09/2018 Overview (09/09/2024): Mild Renal mass, left Encounters Date Type Department Care Team Description 12/09/2024 12:00 PM CDT Office Visit [facility] - Orthopedics [address] [place] [address], [place] [address] Dennis Robert MD S/P cervical spinal fusion (Primary Dx) 12/09/2024 11:57 AM CDT - 12/09/2024 11:59 PM CDT Hospital Encounter [facility] DIAGNOSTIC RAD CSM [address] [facility]. [facility] [place] [address] Dennis Robert MD Discharge Disposition: Home or Self Care 11/25/2024 Orders Only [facility] [address] [place] [address], [place] [address] Dennis Robert MD S/P cervical spinal fusion from Last 3 Months Immunizations Immunization Administration Dates Next Due INFLUENZA VACCINE, TRIV. (AF LURIA, FLUZONE TRIVALENT; 6MO+) (IIV3) 07/19/2014 FLU VACCINE QUAD IIV4 SPLIT 0.25 ML IM 04/04/2016,04/17/2015 FLU VACCINE TRI IIV3 SPLIT P F IM (FLUVIRIN) 03/25/2024 INFLUENZA VACCINE 04/20/2021,02/29/2020,05/05/20 19 INFLUENZA VACCINE, QUADR. (A FLURIA, FLUZONE QUADRIVALENT; [...] Never Comments:6- 10 cigars/day wh ile at [facility]. Alcohol Use Standard Drinks/Week Comments No 0 [...] Recorded Patient Health Questionnaire-2 Score 1 12/09/2024 [facility] - Occupational [...] any time in the past [address] [facility], were you homeless or living in a [facility] (including now)? No 08/19/2024 Sex and Gender [...] Care Team (Late st Contact Info) Description 03/02/2025 7:30 AM CDT Appointment [facility] [address] [place] [phone] Blank Javier, KRANTHI-CERAMIC CHEMIST [address] [place] [address] 03/03/2025 12:00 PM CDT Office Visit [facility] - Orthopedics [address] [facility], [place] [address] Dennis Robert MD [address] [facility] [place] [address] 06/03/2025 8:15 AM HEAD BANQUET WAITER/WAITRESS Office Visit [facility] - Urology [address] [place] [address] [address] [place] [address] Blank Javier, SUBSTANCE ABUSE CLINICIAN-CERAMIC CHEMIST [address] [place] [address] Bro Hernandez MD [address] [place] [address] Health Maintenance Due Date Last Done Comments [...] this topic Medical Devices Implanted Type Area Entry Level Machine Operator Device Identifier Shelf Expiration Date Model / Serial / Lot Screw 4mm 18mm Ma Spne Bone Implanted:Qty: 1 on 08/24/2024 by Dennis Robert MD at [facility] N/A: Spine Cervical [employer] [id number] / / Screw Set M6 Spne Oc Upr Thor Infnt Implanted:Qty: 12 on 08/24/2024 by Dennis Robert MD at [facility] N/A: Spine Cervical Medtronic Sofamor Danek Spine [id number] / / Screw 3.5mm 18mm Ma Spne Bone Implanted:Qty: 5 on 08/24/2024 by Dennis Robert MD at [facility] N/A: Spine Cervical [employer] Inc [id number] / / Screw 3.5mm 26mm Ma Spne Oc Upr Thor Implanted:Qty: 2 on 08/24/2024 by Dennis Robert MD at [facility] N/A: Spine Cervical [employer] Inc [id number] / / Screw 3.5mm 30mm Ma Spne Oc Upr Thor Implanted:Qty: 2 on 08/24/2024 by Dennis Robert MD at [facility] N/A: Spine Cervical [employer] Inc [id number] / / Screw 4mm 28mm Ma Spne Infnt Nonster Implanted:Qty: 2 on 08/24/2024 by Dennis Robert MD at [facility] N/A: Spine Cervical [employer] Inc [id number] / / Magdiel Spnl 240mm 3.5mm Std Implanted:Qty: 1 on 08/24/2024 by Dennis Robert MD at [facility] N/A: Spine Cervical [employer] Inc [id number] / / Explanted Type Area Entry Level Machine Operator Device Identifier Shelf Expiration Date Model / Serial / Lot Kit Acc Ams 700 Penl Pros Implanted:Qty: 1 on 03/01/2019 by Reggie Gore MD at [facility] [employer] 01/29/2024 [id number] / / [id number] Description:PART OF TOTAL Pros Penl Ams Spctr 1cm 12mm 14mm Mlbl Implanted:Qty: 1 on 03/01/2019 by Reggie Gore MD at [facility] [employer] 11/24/2023 [id number] / / [id number] Pros Penl Ams 700 Ms Social Sciences Instructor Ams Conceal Implanted:Qty: 1 on 03/01/2019 by Reggie Gore MD at [facility] [employer] 01/03/2021 [id number] / / [id number] Description:PART OF TOTAL Ams 700 Lgx, Ms Pump, Iz Implanted:Qty: 1 on 03/01/2019 by Reggie Gore MD at [facility] 12/26/2020 [id number] / / [id number] Description:TOTAL COST Procedures Procedure Name Priority Date/Time Associated Diagnosis Comments XR CERVICAL SPINE 2 OR 3VW Routine 12/09/2024 12:03 PM CDT S/P cervical spinal fusion BASIC METABOLIC PANEL (CALCIUM TOTAL) Routine 08/30/2024 4:50 AM CDT Displacement of implanted penile prosthesis, initial encounter HEPATITIS C AB SCREEN RFLX NAAT QUANT Routine 08/21/2024 12:06 AM HEAD BANQUET WAITER/WAITRESS HIV-1 HIV-2 ANTIBODY + HIV P24 AG PANEL Routine 08/21/2024 12:06 AM HEAD BANQUET WAITER/WAITRESS HEMOGLOBIN A1C Routine 08/19/2024 12:22 AM HEAD BANQUET WAITER/WAITRESS Displacement of implanted penile prosthesis, initial encounter [...] exam. Report dictated by Austin Groves MD (international affairs vice president). I, Santhosh Lee MD have personally reviewed and interpreted this examination/study. > Interpreting Provider: Santhosh Lee MD on 12/10/2024 8:35 AM Narrative 12/10/2024 8:35 AM CDT PROCEDURE: XR CERVICAL SPINE 2 OR 3VW, DATE/TIME OF EXAM: 12/09/2024 12:03 PM, LOCATION [facility] INDICATION: Z98.1: S/P cervical spinal fusion COMPARISON: [...] 3VW, DATE/TIME OF EXAM: 2:03 PM, LOCATION [facility] INDICATION: Z98.1: S/P cervical spinal fusion COMPARISON: [...] exam. Report dictated by [place] Groves MD (international affairs vice president). I, Santhosh Lee MD have personally reviewed and interpreted this examination/study. > Interpreting Provider: Santhosh Lee MD on 12/10/2024 8:35 AM us Dennis Robert MD DIAGNOSTIC IMAGING ORDERABLES Fi nal Result * (ABNORMAL) BASIC METABOLIC PANEL (CALCIUM TOTAL) (08/30/2024 4:50 AM T) BUN 19 7 - 26 mg/dL 08/30/2024 7:11 AM [facility] Creatinine 0.42(L) 0.71 - 1.16 mg/dL 08/30/2024 7:11 AM [facility] Sodium 138 136 - 145 mmol/L 08/30/2024 7:11 AM [facility] Potassium 3.9 3.5 - 4.5 mmol/L 08/30/2024 7:11 AM [facility] Chloride 106 98 - 107 mmol/L 08/30/2024 7:11 AM [facility] CO2 25 22 - 29 mmol/L 08/30/2024 7:11 AM [facility] Glucose 65(L) 70 - 99 mg/dL 08/30/2024 7:11 AM [facility] Calcium 9.0 8.4 - 10.2 mg/dL 08/30/2024 7:11 AM [facility] Anion Gap 7 6 - 16 08/30/2024 7:11 AM [facility] BUN/Creatinine Ratio 45(H) 7 - 23 08/30/2024 7:11 AM [facility] Osmolality Calculated 286 275 - 295 mOsm/kg 08/30/2024 7:11 AM [facility] eGFR by CKD-EPI >90 >=90 mL/min/1.7 3 m2 08/30/2024 7:11 AM CDT [facility] Blood BLOOD SPECIMEN / Unknown Lab Venipuncture / Unknown 08/30/2024 4:50 AM CDT 08/30/2024 6:46 AM CDT Bro Hernandez MD LAB - CHEMISTRY ORDERABLES Final Result Performing Organization Address [facility] Co de Phone Number [address] [address], [facility] [phone] * HEPATITIS C AB SCREEN RFLX NAAT QUANT (08/21/2024 12:06 AM HEAD BANQUET WAITER/WAITRESS) Hepatitis C Antibody Non-react sharmin Non-reac tive 08/21/2024 1:24 AM HEAD BANQUET WAITER/WAITRESS [facility] Comment:Hepatitis C Antibody screen indicates no serologic evidence of past or current infection with Hepatitis C Virus. Patients with unexplained liver disease who are immunocompromised or suspected of having acute Hepatitis C infection may benefit from Nucleic Acid Test (MIKE) for Hepatitis C Viral RNA to confirm Hepatitis C status. Blood BLOOD SPECIMEN / Unknown Lab Venipuncture / Unknown 08/21/2024 12:06 AM HEAD BANQUET WAITER/WAITRESS 08/21/2024 12:38 AM HEAD BANQUET WAITER/WAITRESS Result [facility] Janes Mcmillan II, MD LAB - CHEMISTRY ORDERABL ES Final Result Performing Organization Address [facility] Co de Phone Number [address] [address], [facility] [phone] * HIV-1 HIV-2 ANTIBODY + HIV P24 AG PANEL (08/21/2024 12:06 AM HEAD BANQUET WAITER/WAITRESS) HIV Antigen/Antibod y 1 & 2 Non-reacti ve Non-react sharmin 08/21/2024 1:24 AM HEAD BANQUET WAITER/WAITRESS [facility] Comment:No Laboratory eviden ce of HIV infection. Blood BLOOD SPECIMEN / Unknown Lab Venipuncture / Unknown 08/21/2024 12:06 AM HEAD BANQUET WAITER/WAITRESS 08/21/2024 12:38 AM HEAD BANQUET WAITER/WAITRESS Result [facility] us Janes Mcmillan II, MD LAB - CHEMISTRY ORDERABL ES Final Result Performing Organization Address [facility]/ZIP Co de Phone Number [address] [address], [facility] [phone] * (ABNORMAL) HEMOGLOBIN A1C (08/19/2024 12:22 AM HEAD BANQUET WAITER/WAITRESS) Hemoglobin A1c 7.2(H) <=5.6 % 08/19/2024 9:24 AM [facility] Estimated Average Glucose 160 mg/dL 08/19/2024 9:24 AM [facility] Comment: HbA1c Interpretation: Normal : < 5.7% Pre-diabetes: 5.7-6.4% Diabetes: Equal to or greater than 6.5% Test results diagnostic of diabetes should be repeated for confirmation. Treatment target values recommended by ADA and other clinical organizations should be used to evaluate metabolic control in patients. Reference: [place] Diabetes Association, Standards of Care in Diabetes -2020 In patients 70 years and older consider HbA1c target range of 7.0-7.5% (Reference: Jamison Krishnamurthy et al. JAMDA. 2012) The Sebia assay for the measurement of HbA1c is a National Glycohemoglobin Standardization Program (NGSP) certified method. Blood BLOOD SPECIMEN / Unknown Lab Venipuncture / Unknown 08/19/2024 12:22 AM HEAD BANQUET WAITER/WAITRESS 08/19/2024 12:37 AM HEAD BANQUET WAITER/WAITRESS Bro Hernandez MD LAB - CHEMISTRY ORDERABLES Final Result Performing Organization Address [facility]/ZIP Co de Phone Number [address] [address], [facility] [phone] * (ABNORMAL) MICROALB/CREAT RATIO URINE RANDOM PANEL [...] category. REPORT COMMENT: FASTING:YES Test Performed at: [employer] 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
--- OUTSIDE RECORDS SUMMARY | 2025-02-17 14:55 | XMS_ITS ---
Author Organization [facility] Address [address] [facility] [address] Care Team Providers Care Real Estate Salesperson Name Role Phone Bro Hernandez MD Unavailable David Saucedo MD Primary Care Provider [phone] Active Problems Problem Noted Date Diagnosed Date [...]
[2025-02-17 15:18] LABS: Hematocrit 40.9 % (42.0-52.0); Hemoglobin 12.9 g/dL (14.0-18.0); Immature Granulocyte Percent A 0.5 % (0-0.5); Lymphocytes Absolute Auto 0.42 K/mm3 (0.9-3.2); Mean Corpuscular HGB Conc 31.5 g/dl (32-36); Mean Corpuscular Hemoglobin 26.1 pg (26-34); Mean Corpuscular Volume 82.6 fl (80-100); Nucleated Red Blood Cells Absolute Auto 0.000 K/mm3 (0.0-0.012); Nucleated Red Blood Cells Perc 0.0 % (0.0-0.2); Platelet Count Result 351 k/mm3 (150-375); Red Blood Count 4.95 M/mm3 (4.6-6.20); White Blood Count 17.2 K/mm3 (4.5-10.0)
[2025-02-17] MEDS: SODIUM CHLORIDE 0.9% IV 1,000 ML 999 ML IV CONT ×2 (15:32→19:51)
[2025-02-17 15:36] LABS: Alanine Aminotransferase 19 U/L (6-50); Albumin Level 4.0 g/dL (3.5-5.1); Alkaline Phosphatase 136 U/L (38-126); Anion Gap 28 mmol/L (4-12); Aspartate Amino Transferase 30 U/L (17-59); Bilirubin,Total 0.6 mg/dL (0.2-1.3); Blood Urea Nitrogen 53 mg/dL (9-20); Calcium 9.7 mg/dL (8.4-10.2); Carbon Dioxide 7 mmol/L (22-30); Chloride 107 mmol/L (98-107); Estimated CRCL calculation 40 ml/min; Estimated Glomerular Filt Rate 56; Glucose 284 mg/dL (65-110); INR 1.0; Potassium 4.1 mmol/L (3.4-5.0); Prothrombin Time 13.6 Seconds (11.1-14.7); Sodium 142 mmol/L (137-145); Total Protein 8.1 g/dL (6.3-8.2)
[2025-02-17 15:37] LABS: Partial Thromboplastin Time 28.9 Seconds (22.3-36.8)
[2025-02-17 15:42] LABS: Add Urine Microscopic? YES; Appearance Urine Turbid (Clear); Glucose Urine UA 3+ mg/dL (Negative); Leukocyte Esterase Ur 3+ LEU/UL (Negative); Need Manual Microscopic Reviewed; Nitrate Urine Negative (Negative); Specific Grav Ur 1.024 (1.001-1.035)
--- NOTE | 2025-02-17 16:01 | ECG_ITS ---
Test Date: 2025-02-17 16:03:45 Measurements Intervals Bryant Rate: 130 P: 16 MT: 107 QRS: 36 QRSD: 92 T: 92 QT: 357 QTc: 525 Interpretive Statements SINUS TACHYCARDIA WITH SHORT MT INTERVAL WITH OCCASIONAL ECTOPIC PREMATURE COMPLEXES LOW QRS VOLTAGE - DIFFUSE LEADS BORDERLINE R WAVE PROGRESSION, ANTERIOR LEADS BASELINE ARTIFACT- I, II, III, AVR, AVL, AVF, V1-V6 ABNORMAL ECG Compared to ECG 02/17/2025 14:47:53 NO SIGNIFICANT CHANGE Electronically Signed On 02-17-2025 16:07:22 CDT by Reji Roberts D.O.
[2025-02-17] MEDS: CEFEPIME 1 GM in SODIUM CHLORIDE 0.9% IV 50 ML 100 ML IVPB (16:27)
--- NOTE | 2025-02-17 17:16 | P.HP_ITS ---
H&P: HPI History of Present Illness Date/Time: 02/17/25 17:16 Chief Complaint: Altered mental status Narrative: 64-year-old male with history hyperlipidemia, diabetes, presents with altered mental status and hypoxia from his shelter. Rapid response called once patient arrives to floor for being hypoxic. HPI is limited as patient is in distress. Patient states that he wishes to be intubated if needed. Patient tachypneic and tachycardia with hypoxia. Lab work in the ED shows leukocytosis at 17.2, hemoglobin of 12.9, carbon dioxide is 7, anion gap of 28, BUN of 53, creatinine of 1.29 with previous creatinine being around 1.8, GFR 56 glucose 284, lactic acid 2.8 UA is turbid with 3+ leukocyte esterase over 100 RBCs over 100 WBCs 4+ bacteria. Head CT shows no acute process. CT chest abdomen pelvis show ground-glass opacities throughout both lungs, thickening of bladder wall, large stool ball, distended stomach, and small amount of fat stranding with a few locules of air in the mid and distal sacrum. EKG shows sinus tachycardia 130. Review of Systems Review of Systems: ROS unobtainable: Yes unobtainable due to mental status [facility] Past Medical History Medical History (Updated 02/17/25 @ 23:27 by Deb Rodriguez APRN) History of left heart catheterization Elevated lipids Diabetes Asthma Arthritis Surgical History Surgical History History of lumbosacral spine surgery Family History Family History Mother Family history of primary malignant neoplasm of liver, Onset Age: 69 Social History Social History Smoking status: Current every day smoker Meds Home Medications and Allergies Home Medications ?Medication ?Instructions ?Recorded ?Confirmed ?Type aspirin 81 mg tablet,delayed 81 mg PO DAILY 06/01/19 0 01/02/21 History release cyclobenzaprine 10 mg tablet 10 mg PO ONCE PRN 9 01/02/21 History gabapentin 300 mg capsule 600 mg PO BID 06/01/1901/02 History metformin 1,000 mg tablet 1,000 mg PO BID 06/01/19 History pravastatin 10 mg tablet 10 mg PO DAILY #30 tabs 05/2301/02/21 Rx insulin glargine 100 unit/mL (3 25 unit subcut BID 01/02/21 History mL) subcutaneous pen (Lantus Solostar U-100 Insulin) lisinopril 20 mg tablet 20 mg PO DAILY 01/02/2112/21 History cephalexin 500 mg capsule 500 mg PO Q6H 7 days #28 cap s 12/16/24 Rx cephalexin 500 mg capsule 500 mg PO Q6H 7 days #28 cap s 12/16/24 Rx cefdinir 300 mg capsule 300 mg PO Q12H 7 days #14 ca ps 02/01/25 Rx cefdinir 300 mg capsule 300 mg PO Q12H 7 days #14 ca ps 02/01/25 Rx Allergies Allergy/AdvReac Type Severity Reaction Status Date / Time codeine Allergy Unknown Unknown Verified 12/16/24 18:40 Vital Signs Vital Signs - 24 hr 02/17/25 14:28 02/17/25 14:31 02/17/25 15:07 Temperature 100.1 F H Pulse Rate 136 H 129 H Respiratory Rate 33 H 35 H Blood Pressure 111/70 Pulse Oximetry 84 L 93 90 Oxygen Delivery Nasal Cannula Nasal Cannula Oxygen Flow Rate 4 4 02/17/25 15:34 02/17/25 16:00 02/17/25 16:01 Temperature Pulse Rate 126 H 134 H Respiratory Rate 28 H 30 H 28 H Blood Pressure 106/64 105/71 Pulse Oximetry 90 87 L 86 L Oxygen Delivery Oxygen Flow Rate 02/17/25 16:06 Temperature Pulse Rate Respiratory Rate Blood Pressure Pulse Oximetry 87 L Oxygen Delivery Nasal Cannula Oxygen Flow Rate 6 Exam Narrative: General: Respiratory distress, cachectic HEENT: normocephalic, atraumatic. Mucous membranes moist. EOMI, PERRLA, bilateral sclera anicteric, no conjunctival injection. Neck supple without JVD, lymphadenopathy, or bruit. Respiratory: clear to ascultation bilaterally. Tachypneic Cardiovascular: Regular rate and rhythm, normal S1-S2 upon ascultation. No murmurs, rubs, or clicks. PMI is nondisplaced, capillary refill less than 3 second. Abdomen: Soft, round, no pulsatile masses, nondistended and nontender. No rebound, no guarding. No CVA tenderness, no hepatosplenomegaly. Bowel sounds present to all four quadrants. No high pitch or tinkling sounds, resonant to percussion. Extremities: No cyanosis, clubbing, or edema present. Pulses are palpable 2/2. Active ROM to all four extremities. Neuro: Alert and orientated x 4. PERRLA. Cranial nerves 2-12 intact without focal deficit. Skin: Warm, dry, and intact, without rash, erythema, or lesion. Psych: pleasant, cooperative, normal speech, normal affect, no hallucinations, no dysarthia H&P: Results Labs Labs: Short CBC 02/17/25 Range/Units 15:08 WBC 17.2 H (4.5-10.0) K/mm3 Hgb 12.9 L (14.0-18.0) g/dL Hct 40.9 L (42.0-52.0) % Plt Count 351 (150-375) k/mm3 BMP 02/17/25 15:08 Sodium 142 Potassium 4.1 Chloride 107 Carbon Dioxide 7 L BUN 53 H D Creatinine 1.29 Glucose 284 H Calcium 9.7 Liver Function 02/17/25 Range/Units 15:08 Total Bilirubin 0.6 (0.2-1.3) mg/dL AST 30 (17-59) U/L ALT 19 (6-50) U/L Alkaline Phosphatase 136 H (38-126) U/L Albumin 4.0 (3.5-5.1) g/dL Urine 02/17/25 Range/Units 15:08 Urine Color Yellow (Yellow) Urine Appearance Turbid H (Clear) Urine pH 7.5 (5.0-9.0) Ur Specific [place] 1.024 (1.001-1.035) Urine Protein 1+ H (Negative) mg/dL Urine Glucose (UA) 3+ H (Negative) mg/dL Assessment and Plan Assessment and plan (1) Acute respiratory distress: Code(s): R06.03 - Acute respiratory distress Status: Acute Assessment and Plan: Patient arrives to the floor in respiratory distress ABG and BiPAP ordered Code status verified with family the patient would want to be intubated will take patient to ICU for intubation ICU consulted NG tube to lower intermittent suction Fentanyl Versed for sedation ABG in a.m. (2) Pneumonia: Code(s): J18.9 - Pneumonia, unspecified organism Status: Acute Assessment and Plan: Cefepime Vancomycin added IVF (3) UTI (urinary tract infection): Qualifiers: Encounter type: initial encounter Indwelling urinary catheter type: cystostomy catheter Urinary tract infection type: catheter-associated UTI Qualified Code(s): T83.510A - Infection and inflammatory reaction due to cystostomy catheter, initial encounter; N39.0 - Urinary tract infection, site not specified Code(s): N39.0 - Urinary tract infection, site not specified Status: Acute Assessment and Plan: IV cefepime and vancomycin Culture and sensitivity pending (4) Sacral ulcer: Code(s): L98.429 - Non-pressure chronic ulcer of back with unspecified severity Status: Acute Assessment and Plan: Wound care consult (5) Lactic acid acidosis: Code(s): E87.20 - Acidosis, unspecified Status: Acute Assessment and Plan: Severe sepsis due to pneumonia, UTI and sacral ulcer 2 L fluid bolus Repeat lactic in the morning (6) NAN (acute kidney injury): Code(s): N17.9 - Acute kidney failure, unspecified Status: Acute Assessment and Plan: IVF Renally dose medications BMP in the morning (7) Fecal impaction: Code(s): K56.41 - Fecal impaction Status: Acute Assessment and Plan: Stool ball Suppository Senna as per tube (8) Diabetes: Code(s): E11.9 - Type 2 diabetes mellitus without complications Status: Acute Assessment and Plan: NPO Accu-Cheks q.4 SSI Hypoglycemia protocol (9) CAD (coronary artery disease): Code(s): I25.10 - Atherosclerotic heart disease of [place] coronary artery without angina pectoris Status: Acute Assessment and Plan: Waiting for medications to be verified (10) Hypertension: Code(s): I10 - Essential (primary) hypertension Status: Acute Assessment and Plan: Patient's blood pressure is currently soft will hold antihypertensives Plan Waiting on nursing to verify medications with shelter Quality VTE Prophylaxis VTE prophylaxis: mechanical ordered Hospitalist MIPS Advance Care Plan I have confirmed that the patient's Advanced Care Plan is present, code status is documented, or surrogate decision maker is listed in patient medical record.: Yes
--- NOTE | 2025-02-17 17:42 | ED.AMS ---
HPI - Altered Mental Status General Chief Complaint: Altered Mental Status Stated Complaint: SOB AMS Time Seen by Provider: 02/17/25 14:44 Source: EMS Mode of arrival: EMS History of Present Illness HPI narrative: 64-year-old with a history of hypertension, type 2 diabetes, pressure ulcer in the sacral area stage 3 , protein calorie malnourishment was brought in from care home with the complaints of altered mental status. Since this afternoon and shortness of breath. Patient upon arrival denies having any headache, chest pain or abdominal pain. As per the nursing staff at the care home patient was alert in the morning when they went to check on him this afternoon he was found to be altered and he was having shortness of breath.., complaint: altered mental status Onset (ago): hour(s) Severity: moderate Associated symptoms: denies other symptoms Related Data Home Medications ?Medication ?Instructions ?Recorded ?Confirmed ?Last Taken ?Type aspirin 81 mg tablet,delayed 81 mg PO DAILY 06/01/19 01/02/21 Unknown History release cyclobenzaprine 10 mg tablet 10 mg PO ONCE PRN 06/01/19 01/02/21 Unknown History gabapentin 300 mg capsule 600 mg PO BID 06/01/19 01/02/21 Unknown History metformin 1,000 mg tablet 1,000 mg PO BID 06/01/19 01/02/21 Unknown History insulin glargine 100 unit/mL (3 25 unit subcut BID 01/05/20 01/02/21 Unknown History mL) subcutaneous pen (Lantus Solostar U-100 Insulin) lisinopril 20 mg tablet 20 mg PO DAILY 01/02/21 01/02/21 Unknown History Allergies Allergy/AdvReac Type Severity Reaction Status Date / Time codeine Allergy Unknown Unknown Verified 12/16/24 18:40 Review of Systems Review of Systems: All systems reviewed & are unremarkable except as noted in HPI and below Constitutional: Constitutional: Reports no additional constitutional complaints Eyes: Eyes: Reports no additional eye complaints ENT: Reports system reviewed and no additional complaints, except as documented Cardiovascular: Cardiovascular: Reports no additional cardiovascular complaints Respiratory: Respiratory: Reports no additional respiratory complaints Genitourinary: Genitourinary: Reports no additional male genitourinary complaints [facility] Past Medical History Medical History (Updated 02/17/25 @ 17:45 by Olu Gavin MD) History of left heart catheterization Elevated lipids Diabetes Asthma Arthritis Surgical History Surgical History History of lumbosacral spine surgery Family History Family History Mother Family history of primary malignant neoplasm of liver, Onset Age: 69 Social History Social History Smoking status: Current every day smoker Exam Narrative: GENERAL: ill appearing, thin and frail , and in no acute distress. HEAD: Normocephalic, atraumatic. EYES: PERRLA and EOMI. ENT: Nares clear, no rhinorrhea. Mucous membranes moist. NECK: Supple. CHEST: Tachypneic poor respiratory effort. HEART: Tachycardic No murmur heard. Normal peripheral pulses. ABDOMEN: Soft, nontender, nondistended, normal active bowel sounds. EXTREMITIES: Normal range of motion. No edema. SKIN: Warm, dry, no rash. Decubitus ulcer in the sacral area NEURO: No focal deficits. Alert .. PSYCH: Normal mood and affect. Course Course Emergency Course: Patient was given 2 L of normal saline, labs and CT were obtained IV antibiotic was started he still remained tachycardic. CT scan shows multifocal pneumonia. He is still tachycardic ,requiring 6 lts of oxygen. Patient stated that he does not want to be intubated ,but wants CPR done , i did ntify RT to start on Airvo . Vital Signs Vital signs: Vital Signs Temperature 37.8 C H 02/17/25 14:28 Pulse Rate 136 H 02/17/25 14:28 Respiratory Rate 33 H 02/17/25 14:28 Blood Pressure 111/70 02/17/25 14:28 Pulse Oximetry 84 L 02/17/25 14:28 Oxygen Delivery Nasal Cannula 02/17/25 14:28 Oxygen Flow Rate 4 02/17/25 14:28 Temperature 37.8 C H 02/17/25 14:28 Pulse Rate 134 H 02/17/25 16:00 Respiratory Rate 28 H 02/17/25 16:01 Blood Pressure 105/71 02/17/25 16:01 Pulse Oximetry 87 L 02/17/25 16:06 Oxygen Delivery Nasal Cannula 02/17/25 16:06 Oxygen Flow Rate 6 02/17/25 16:06 MDM - Altered Mental Status Differential Diagnosis Differential diagnosis: Likely altered mental status, sepsis and other (Pneumonia, CHF) Medical Records Attestation: I reviewed the patient's medical records. Lab Data Attestation: I reviewed the patient's lab results. 02/17/25 15:08 02/17/25 15:08 Labs: Lab Results 02/17/25 Range/Units 15:08 WBC 17.2 H (4.5-10.0) K/mm3 RBC 4.95 (4.6-6.20) M/mm3 Hgb 12.9 L (14.0-18.0) g/dL Hct 40.9 L (42.0-52.0) % MCV 82.6 (80-100) fl MCH 26.1 (26-34) pg MCHC 31.5 L (32-36) g/dl RDW 16.0 H (11.5-14.5) % Plt Count 351 (150-375) k/mm3 MPV 9.1 (7.4-10.4) fl Immature Gran % (Auto) 0.5 (0-0.5) % Neut % (Auto) 92.1 H (45.5-73.1) % Lymph % (Auto) 2.4 L (18.3-44.2) % [place] % (Auto) 4.4 (2.6-8.5) % Eos % (Auto) 0.4 (0-4.4) % Baso % (Auto) 0.2 (0.2-1.2) % Lymph # (Auto) 0.42 L (0.9-3.2) K/mm3 [place] # (Auto) 0.8 H (0.1-0.6) K/mm3 Eos # (Auto) 0.1 (0-0.3) K/mm3 Baso # (Auto) 0.0 (0.0-0.1) K/mm3 Abs Immat Gran (auto) 0.09 H (0.00-0.031) K/mm3 Absolute Neuts (auto) 15.8 H (1.3-6.7) K/mm3 Absolute Nucleated RBC 0.000 (0.0-0.012) K/mm3 Nucleated RBC % 0.0 (0.0-0.2) % PT 13.6 (11.1-14.7) Seconds INR 1.0 APTT 28.9 (22.3-36.8) Seconds Sodium 142 (137-145) mmol/L Potassium 4.1 (3.4-5.0) mmol/L Chloride 107 (98-107) mmol/L Carbon Dioxide 7 L (22-30) mmol/L Anion Gap 28 H (4-12) mmol/L BUN 53 H D (9-20) mg/dL Creatinine 1.29 (0.7-1.3) mg/dL Estim Creat Clear Calc 40 ml/min Estimated GFR 56 L (59 - ) Glucose 284 H (65-110) mg/dL Lactic Acid 2.8 H (0.7-2.0) mmol/L Calcium 9.7 (8.4-10.2) mg/dL Total Bilirubin 0.6 (0.2-1.3) mg/dL AST 30 (17-59) U/L ALT 19 (6-50) U/L Alkaline Phosphatase 136 H (38-126) U/L Total Protein 8.1 (6.3-8.2) g/dL Albumin 4.0 (3.5-5.1) g/dL Urine Color Yellow (Yellow) Urine Appearance Turbid H (Clear) Urine pH 7.5 (5.0-9.0) Ur Specific [place] 1.024 (1.001-1.035) Urine Protein 1+ H (Negative) mg/dL Urine Glucose (UA) 3+ H (Negative) mg/dL Urine Ketones 3+ H (Negative) mg/dL Ur Blood (Man) 3+ H (Negative) Urine Nitrate Negative (Negative) Urine Bilirubin Negative (Negative) Urine Urobilinogen 1.0 (<2.0) mg/dL Add Ur Microanalysis Reviewed Leukocyte Esterase Rfl 3+ H (Negative) BERTO/UL Urine RBC >100 H (0-2) /hpf Urine WBC >100 H (0-3) /hpf Ur Squamous Epith Cells None seen (Few) /hpf Urine Bacteria 4+ H /hpf Urine Casts 11-20 Imaging Data My impression: ITS Impressions Chest X-Ray 02/17/25 15:35 IMPRESSION: 1: Small to moderate-sized patchy opacities in the medial aspects of both lungs. Differential includes but is not limited to pulmonary edema, pneumonia, atelectasis or possibly artifact from overlapping structures from low lung volumes. Correlate clinically. Consider frontal and lateral images of the chest or a chest CT for further assessment. Head CT 02/17/25 16:55 IMPRESSION: 1. No acute intracranial hemorrhage. No mass effect. 2. Probable chronic ischemic white matter change. Chest/Abdomen/Pelvis CT 02/17/25 17:11 IMPRESSION: 1. Moderate sized groundglass opacities scattered throughout both lungs most prominent in the lower lobes. In addition, there are small to moderate sized patchy consolidations scattered throughout both lungs most prominent in the lower lobes. The findings are concerning for multilobar pneumonia. Other etiologies are possible but are felt to be less likely. Recommend follow-up to resolution. 2.There is a Daniels catheter in the bladder. Mild concentric thickening of the [place] of the bladder. Small amount of nondependent air in the bladder which may be due to recent instrumentation or cystitis. 3. Large amount of stool in the rectum. 4. The stomach is distended and filled with air. 5. Small amount of fat stranding with a few locules of air about the posterior aspect of the mid and distal sacrum. No obvious loculated fluid collection identified. No convincing CT evidence for sacral osteomyelitis at this time. ECG Data EKG #1: ECG completion date: 02/17/25 ECG completion time: 14:47 EKG Interpretation: tachycardia (123), no ectopy, normal QRS and NL axis EKG #2: ECG completion date: 02/17/25 ECG completion time: 16:03 EKG Interpretation: tachycardia (123), no ectopy, normal QRS and no acute changes Critical Care Time Critical Care Time Total Critical Care Time: 45 Discharge Plan Discharge Clinical Impression: Multifocal pneumonia, Acute UTI, Metabolic acidosis Patient Disposition: Still a Patient Condition: Stable Patient Language: Uzbek Prescriptions: No Action metformin 1,000 mg tablet 1,000 mg PO BID cyclobenzaprine 10 mg tablet 10 mg PO ONCE PRN gabapentin 300 mg capsule 600 mg PO BID aspirin 81 mg tablet,delayed release (DR/EC) 81 mg PO DAILY pravastatin 10 mg tablet 10 mg PO DAILY Qty: 30 5RF Lantus Solostar U-100 Insulin 100 unit/mL (3 mL) insulin pen 25 unit SUB-Q BID lisinopril 20 mg tablet 20 mg PO DAILY cefdinir 300 mg capsule 300 mg PO Q12H 7 Days Qty: 14 0RF cefdinir 300 mg capsule 300 mg PO Q12H 7 Days Qty: 14 0RF cephalexin 500 mg capsule 500 mg PO Q6H 7 Days Qty: 28 0RF cephalexin 500 mg capsule 500 mg PO Q6H 7 Days Qty: 28 0RF Follow-up/Referrals: UNKNOWN,DOCTOR [Primary Care Provider] Time of Disposition: 17:45
[2025-02-17] MEDS: SODIUM CHLORIDE 0.9% IV 1,000 ML 125 ML IV CONT ×2 (18:05→20:46)
--- NOTE | 2025-02-17 19:10 | ECG_ITS ---
Test Date: 2025-02-17 19:16:21 Measurements Intervals [place] Rate: 131 P: 75 RI: 147 QRS: 56 QRSD: 97 T: 67 QT: 345 QTc: 511 Interpretive Statements SINUS TACHYCARDIA WITH OCCASIONAL SUPRAVENTRICULAR PREMATURE COMPLEXES LOW QRS VOLTAGE IN LIMB LEADS PATTERN CONSISTENT WITH PULMONARY DISEASE BASELINE ARTIFACT- I, II, III, AVR, AVL, AVF, V1-V6 ABNORMAL ECG Compared to ECG 02/17/2025 16:03:45 Short RI interval no longer present Electronically Signed On 02-18-2025 09:50:16 CDT by Reji Roberts D.O.
[2025-02-17 19:23] LABS: Alveolar/Arterial O2 Gradient 562.1 mmHg; Carboxyhemoglobin 0.2 % THb (0-2.0); Fractional Inspired Oxygen 90 %; HCO3 ABG 10.9 mEq/l (22.0-26.0); Methemoglobin ABG 0.1 %THb (0-1.5); Oxygen Content ABG 16.7 %vol (16.0-22.0); PO2 ABG 56.4 mmHg (80.0-100.0); PO2 FiO2 Ratio Arterial Blood 0.63 %; Reduced Hemoglobin 14.4 %THb (0-5.0)
[2025-02-17 19:28] LABS: PCO2 ABG 22.6 mmHg (35.0-45.0)
[2025-02-17 19:29] LABS: Modified Allen's Test Pass; Oxygen Saturation ABG 87.3 % (95.0-100.0); Site Drawn RIGHT RADIAL
[2025-02-17 19:30] LABS: Liters per Minute 60.0 LPM
[2025-02-17] MEDS: MIDAZOLAM 100MG/NS 100ML(*CRX) 100 MG/100 ML BAG IV CONT (20:15)
[2025-02-17] MEDS: FENTANYL 2,500MCG/NS250ML(*CRX 2,500 MCG/250 ML BAG IV CONT (20:15)
[2025-02-17] MEDS: VANCOMYCIN 750 MG/NS 250 ML 750 MG/250 ML BAG 250 MG IVPB (20:38)
[2025-02-17] MEDS: MINERAL OIL/WHITE PETROLATUM OINTMENT 1 APPLIC EACH EYE (20:46)
[2025-02-17 21:25] LABS: Alveolar/Arterial O2 Gradient 530.5 mmHg; Fractional Inspired Oxygen 100 %; HCO3 ABG 11.8 mEq/l (22.0-26.0); Oxygen Content ABG 18.6 %vol (16.0-22.0); Oxygen Saturation ABG 98.8 % (95.0-100.0); PCO2 ABG 27.1 mmHg (35.0-45.0); PO2 ABG 155.4 mmHg (80.0-100.0); PO2 FiO2 Ratio Arterial Blood 1.55 %
[2025-02-17 21:28] LABS: Site Drawn RIGHT BRACHIAL
[2025-02-17 21:29] LABS: Arterial Blood Gas Tidal Volume 450 ml; Arterial Blood Gas Ventilator rate 18 /MIN
[2025-02-17] MEDS: SODIUM BICARBONATE 8.4% 50 MEQ/50 ML SYRINGE 100 MEQ IV PUSH (21:50)
[2025-02-17] MEDS: SENNA/DOCUSATE SODIUM TABLET 1 TAB FEED TUBE (21:55)
[2025-02-17] MEDS: SODIUM BICARBONATE 8.4% 150 MEQ in WATER, STERILE FOR INJECTION 950 ML 100 MEQ IV CONT (22:23)
[2025-02-17 23:33] LABS: MRSA (PCR) DETECTED (NOT DETECTE)
--- NOTE | 2025-02-17 23:35 | ADMGEN ---
This patient, Toni Gates, was admitted to IMU room 200 at 1855. Patient/family oriented to hospital policies and general routines including ID bracelet, bed and alarms, visiting hours, pain management, procedures, bathroom and other care routines, personal items, smoking policy, room service/diet, and visiting hours. Information on how to activate the Rapid Response Team has been discussed. Patient/Family are encouraged to report perceived risks to care and to ask questions if they do not understand what they are told or what they should do.
--- NOTE | 2025-02-17 23:44 | ADMGEN ---
This patient, Toni Gates, was admitted to Intensive Care Unit-1. Patient/family oriented to hospital policies and general routines including ID bracelet, bed and alarms, visiting hours, pain management, procedures, bathroom and other care routines, personal items, smoking policy, room service/diet, and visiting hours. Information on how to activate the Rapid Response Team has been discussed. Patient/Family are encouraged to report perceived risks to care and to ask questions if they do not understand what they are told or what they should do. Rapid Response from room 200 at 1905. Patient transferred to ICU 1 via bed and intubated at bedside per Dr. Gavin x 2 attempts. Report received from DARIEL Herbert Rn.
[2025-02-18] VITALS (72 sets, daily range): BP systolic 71–113; BP diastolic 52–77; PULSE 109–144; RESP 22–35; TEMP 35.9–38.8; O2SAT 90–98; BMI 18.2
--- NOTE | 2025-02-18 | ECHO_ITS ---
Patient Info Name: Toni Gates Age: 64 years : 1960 Gender: Male Ht: 69 in Wt: 123 lbs BSA: 1.64 m2 HR: 122 bpm BP: 75 / 57 mmHg Technical Quality: Fair Exam Date: 02/18/2025 11:33 AM Patient Status: I Admit Date: 02/17/2025 Exam Type: CA echo doppler color flow Complete two-dimensional, color flow and Doppler transthoracic echocardiogram is performed. Staff Referring Physician: David Naylor MD Sheriffs Officer: Jesus Garza III Attending Provider: Omari Peterson MD Summary 1. Pt. sedated, unable to lay in left lateral decubitus position, off-axis views, no SSN views due to bandage. 2. Complete two-dimensional, color flow and Doppler transthoracic echocardiogram is performed. 3. Left ventricular chamber dimension is normal. 4. Left ventricular systolic function is normal, estimated at 55-60. 5. Left ventricular septal wall motion is abnormal with septal motion related to bundle branch block. 6. The left ventricular diastolic function is grade I diastolic dysfunction. 7. E/e' 8 is minimally elevated. 8. Right ventricular chamber dimension is moderately enlarged. 9. Right ventricular systolic function is severely reduced and with abnormal TAPSE 1.3 cm. 10. There is mild tricuspid valve regurgitation. 11. No pulmonary hypertension, estimated pulmonary arterial systolic pressure is 33 mmHg. Left Ventricle Left ventricular chamber dimension is normal. Left ventricular systolic function is normal, estimated at 55-60. Left ventricular septal wall motion is abnormal with septal motion related to bundle branch block. The left ventricular diastolic function is grade I diastolic dysfunction. E/e' 8 is minimally elevated. Right Ventricle Right ventricular chamber dimension is moderately enlarged. Right ventricular systolic function is severely reduced and with abnormal TAPSE 1.3 cm. Left Atria Left atrial chamber dimension is normal. Right Atria Right atrial chamber dimension is normal. Aortic Valve The aortic valve is trileaflet. There is no aortic valve stenosis. There is no aortic valve regurgitation. Pulmonic Valve There is no pulmonic regurgitation. Mitral Valve There is no mitral valve stenosis. There is no mitral valve regurgitation. Tricuspid Valve There is mild tricuspid valve regurgitation. No pulmonary hypertension, estimated pulmonary arterial systolic pressure is 33 mmHg. Pericardium/Pleural There is no pericardial effusion. Inferior Vena Cava Normal inferior vena cava with >50% collapse upon inspiration consistent with normal right atrial pressure, 5 mmHg. Aorta The aortic root size at the sinus of Valsalva is normal. Left Ventricular Outflow Tract Name Value Normal LVOT 2D LVOT Diameter 2.1 cm LVOT Doppler LVOT Peak Velocity 57 cm/s LVOT Peak Gradient 1 mmHg LVOT Mean Gradient 1 mmHg LVOT VTI 8 cm LVOT VTI/AV VTI Ratio 0.9 LVOT Stroke Volume 27 ml LVOT CO 9.1 l/min LVOT CI 5.6 l/min/m2 Mitral Valve Name Value Normal MV Doppler MV Peak Gradient 3 mmHg MV Mean Gradient 1 mmHg MV Area (Cont Eq VTI) 2.2 cm2 MV Diastolic Function MV E Peak Velocity 51 cm/s MV A Peak Velocity 74 cm/s MV E/A 0.7 MV Decel Time (PW) 242 ms MV Annular TDI MV E/e' (Septal) 10.0 MV E/e' (Lateral) 7.1 MV E/e' (Average) 8.6 Tricuspid Valve Name Value Normal TV Regurgitation Doppler TR Peak Velocity 266 cm/s TR Peak Gradient 28 mmHg Estimated PAP/RSVP RA Pressure 5 mmHg <=5 PA Systolic Pressure 33 mmHg <36 RV Systolic Pressure 33 mmHg <36 TV Annular TDI TV Lateral Alina s' Velocity 9.3 cm/s >=9.5 Aortic Valve Name Value Normal AV Doppler AV Peak Velocity 74 cm/s AV Peak Gradient 2 mmHg AV Mean Gradient 1 mmHg AV VTI 8 cm AV Area (Cont Eq VTI) 3.3 cm2 >=3.0 AV Area (Cont Eq Byron) 2.7 cm2 AV DI (Byron) 0.77 AV Regurgitation 2D LVOT Area 3.5 cm2 Ventricles Name Value Normal LV Dimensions 2D/MM IVS Diastolic Thickness (2D) 0.8 cm 0.6-1.0 LVID Diastole (2D) 4.0 cm 4.2-5.8 LVIW Diastolic Thickness (2D) 0.7 cm 0.6-1.0 LVID Systole (2D) 2.9 cm 2.5-4.0 LVOT Diameter 2.1 cm LV Mass (2D Cubed) 91.62 g 88.00-224.00 LV Mass Index (2D Cubed) 56 g/m2 49-115 Relative Wall Thickness (2D) 0.37 <=0.42 LV Fractional Shortening/Ejection Fraction 2D/MM LV Fractional Shortening (2D) 29 % 25-43 LV EF (2D Teichholz) 56 % LV Diastolic Volume (4C MOD) 59 ml LV EF (4C MOD) 55 % LV Diastolic Length (4C) 6.9 cm LV Systolic Length (4C) 6.3 cm LV Stroke Volume (4C MOD) 32 ml Atria Name Value Normal RA Dimensions RA Systolic Major [place] Length (4C) 4.7 cm 2.1-2.7 RA Area (4C) 13.6 cm2 <=18.0 Report Signatures
--- NOTE | 2025-02-18 00:37 | WNDPHOTO ---
PHOTO ONLY - See Nursing Notes and/ or assessments for documentation.
--- NOTE | 2025-02-18 00:38 | WNDPHOTO ---
PHOTO ONLY - See Nursing Notes and/ or assessments for documentation.
[2025-02-18] MEDS: ALBUMIN HUMAN 25% 25 GM/100 ML 100 ML IVPB ×4 (03:28→17:32)
[2025-02-18] MEDS: PANTOPRAZOLE SODIUM IV 40 MG VIAL IV PUSH ×2 (03:31→21:13)
[2025-02-18 04:30] LABS: Hematocrit 39.0 % (42.0-52.0); Hemoglobin 12.4 g/dL (14.0-18.0); Immature Granulocyte Percent A 0.3 % (0-0.5); Lymphocytes Absolute Auto 0.36 K/mm3 (0.9-3.2); Mean Corpuscular HGB Conc 31.8 g/dl (32-36); Mean Corpuscular Hemoglobin 26.2 pg (26-34); Mean Corpuscular Volume 82.5 fl (80-100); Nucleated Red Blood Cells Absolute Auto 0.000 K/mm3 (0.0-0.012); Nucleated Red Blood Cells Perc 0.0 % (0.0-0.2); Platelet Count Result 263 k/mm3 (150-375); Red Blood Count 4.73 M/mm3 (4.6-6.20); White Blood Count 3.8 K/mm3 (4.5-10.0)
[2025-02-18 04:41] LABS: Alanine Aminotransferase 18 U/L (6-50); Albumin Level 3.3 g/dL (3.5-5.1); Alkaline Phosphatase 101 U/L (38-126); Anion Gap 15 mmol/L (4-12); Aspartate Amino Transferase 33 U/L (17-59); Bilirubin,Total 0.8 mg/dL (0.2-1.3); Blood Urea Nitrogen 47 mg/dL (9-20); Calcium 9.0 mg/dL (8.4-10.2); Carbon Dioxide 21 mmol/L (22-30); Chloride 113 mmol/L (98-107); Estimated CRCL calculation 60 ml/min; Estimated Glomerular Filt Rate > 60; Glucose 153 mg/dL (65-110); Magnesium 2.1 mg/dL (1.6-2.3); Potassium 2.9 mmol/L (3.4-5.0); Sodium 149 mmol/L (137-145); Total Protein 6.6 g/dL (6.3-8.2)
[2025-02-18] MEDS: PHENYLEPHRINE HCL INJ 50 MG in SODIUM CHLORIDE 0.9% IV 245 ML 12 ML IV CONT (05:20)
[2025-02-18 05:21] LABS: Alveolar/Arterial O2 Gradient 340.2 mmHg; Carboxyhemoglobin 0.3 % THb (0-2.0); Fractional Inspired Oxygen 60 %; HCO3 ABG 19.1 mEq/l (22.0-26.0); Methemoglobin ABG 0.0 %THb (0-1.5); Oxygen Content ABG 15.2 %vol (16.0-22.0); Oxygen Saturation ABG 90.4 % (95.0-100.0); PCO2 ABG 29.1 mmHg (35.0-45.0); PO2 ABG 55.6 mmHg (80.0-100.0); PO2 FiO2 Ratio Arterial Blood 0.93 %; Reduced Hemoglobin 10.2 %THb (0-5.0)
[2025-02-18 05:27] LABS: Band Neutrophils Percent 0 % (0-6)
[2025-02-18 05:28] LABS: Burr Cells 1+; Schistocytes None Seen
[2025-02-18 05:30] LABS: Arterial Blood Gas Tidal Volume 450 ml; Arterial Blood Gas Ventilator rate 22 /MIN; Site Drawn RIGHT BRACHIAL
[2025-02-18] MEDS: POTASSIUM CHLORIDE INJ 40 MEQ in SODIUM CHLORIDE 0.9% IV 500 ML 130 MEQ IVPB (05:31)
[2025-02-18] MEDS: POTASSIUM CHLORIDE 20 MEQ PACKET (FOR LIQUID) 40 MEQ FEED TUBE (05:42)
[2025-02-18] MEDS: CEFEPIME 2 GM in SODIUM CHLORIDE 0.9% IV 50 ML 100 ML IVPB ×2 (05:52→17:32)
[2025-02-18] MEDS: MIDAZOLAM HCL (*CRX) 2 MG/2 ML VIAL IV PUSH (08:05)
[2025-02-18] MEDS: LACTATED RINGERS 1,000 ML 999 ML IV CONT ×2 (08:35→10:24)
[2025-02-18] MEDS: NOREPINEPHRINE 8 MG/D5W 250 ML 8 MG/250 ML BAG 9.38 MG IV CONT (08:35)
[2025-02-18] MEDS: SODIUM BICARBONATE 8.4% 150 MEQ in WATER, STERILE FOR INJECTION 950 ML 100 MEQ IV CONT (09:09)
--- NOTE | 2025-02-18 09:10 | P.PCNBED_ITS ---
Procedures Central Line Placement Right IJ: Central Line Date: 02/18/25 Central Line Time: 09:10 Performed Emergently - Given emergent patient condition, temporal constraints may have precluded informed consent.: Yes Time Out Performed: Yes Patient Position: supine Patient placed on monitor/pulse ox: Yes Provider Prep: mask, sterile gown, sterile gloves, Max. sterile barrier precautions, cap and hand hygiene with conventional soap/water or alcohol based hand rub Central line prep: 2% Chlorhexidine scrub Local anesthesia used: lidocaine 1% Amount of anesthesia used (ml): 3 Sterile US Technique with sterile gel/sterile probe covers: Yes Central line lumen inserted: triple Macedonian: 7 Length (cm): 16 Depth of Insertion (cm): 16 Post Procedure: sutured in place, good blood return, all ports aspirated, flushed, capped, transparent dressing, hemostatic product, antimicrobial product, securement product and aseptic technique maintained throughout procedure Post procedure x-ray: tip of catheter in good position and no pneumothorax seen Patient tolerated procedure: well and no complications Complications: none
--- NOTE | 2025-02-18 09:11 | WPDCNINT ---
Assessment and Plan Assessment and plan (1) Septic shock: Code(s): A41.9 - Sepsis, unspecified organism; R65.21 - Severe sepsis with septic shock Status: Acute Assessment and Plan: 02/17: Patient presented from a residential with altered mental status, shortness of breath. Initially had Leukocytosis. Patient did receive 2 L IV fluid bolus in the ER, was transferred to the intermediate Unit and immediately upon arrival to the IMU, rapid response was called due to hypoxia, tachypnea, tachycardia. Patient was transferred to of the ICU -likely etiology pneumonia and UTI -lactic acid remains elevated, -will give additional 1000 mL IV LR bolus -continue Toan-Synephrine, will add Levophed, maintain MAP > 65 mm Hg or SBP > 100 mmHg -central line was inserted this morning, patient looked dry as the was literally no blood flow in the ports. -may require more IV fluids -will check echocardiogram -overnight started on albumin for intravascular volume expansion -02/17: Blood cultures obtained and pending -02/17: Urine cultures obtained and pending -02/18: Sputum culture ordered -started on cefepime and vancomycin (02/17), will add doxycycline (02/18) (2) Acute respiratory failure: Code(s): J96.00 - Acute respiratory failure, unspecified whether with hypoxia or hypercapnia Status: Acute Assessment and Plan: Patient was transferred to the ICU from intermediate Unit, 02/17: emergently intubated by ER physician likely cause multifocal pneumonia -patient is on CMV mode of ventilation, peep of 8, 60% FiO2 -chest x-ray and ABGs reviewed, remains hypoxemic, increased PEEP to 10 with improvement in O2 sats -add bronchodilators -Xopenex and Atrovent -sedated with fentanyl and Versed, will maintain RASS of 0 to -2 -daily SBT and SAT 02/17: CT chest, abdomen and pelvis IMPRESSION: 1. Moderate sized groundglass opacities scattered throughout both lungs most prominent in the lower lobes. In addition, there are small to moderate sized patchy consolidations scattered throughout both lungs most prominent in the lower lobes. The findings are concerning for multilobar pneumonia. Other etiologies are possible but are felt to be less likely. Recommend follow-up to resolution. 2.There is a Daniels catheter in the bladder. Mild concentric thickening of the calvo of the bladder. Small amount of nondependent air in the bladder which may be due to recent instrumentation or cystitis. 3. Large amount of stool in the rectum. 4. The stomach is distended and filled with air. 5. Small amount of fat stranding with a few locules of air about the posterior aspect of the mid and distal sacrum. No obvious loculated fluid collection identified. No convincing CT evidence for sacral osteomyelitis at this time. (3) Multifocal pneumonia: Code(s): J18.8 - Other pneumonia, unspecified organism Status: Acute Assessment and Plan: Multifocal pneumonia -continue treatment as above -ordered sputum cultures (4) Acute UTI: Code(s): N39.0 - Urinary tract infection, site not specified Status: Acute Assessment and Plan: UA was positive for UTI -continue antibiotics as above (5) Diabetes: Code(s): E11.9 - Type 2 diabetes mellitus without complications Status: Acute Assessment and Plan: Accu-Cheks and sliding scale insulin (6) Sacral ulcer: Code(s): L98.429 - Non-pressure chronic ulcer of back with unspecified severity Status: Acute Assessment and Plan: Patient has a sacral ulcer -will have Wound Care evaluate the patient -will discuss with wound care if surgery is required on the case 02/17: CT abdomen and pelvis: Small amount of fat stranding with a few locules of air about the posterior aspect of the mid and distal sacrum. No obvious loculated fluid collection identified. No convincing CT evidence for sacral osteomyelitis at this time. Plan DVT prophylaxis: Heparin subQ Stress ulcer prophylaxis: Protonix Nutrition: NPO Code Status: Full code Critical Care Time Spent: 55 minutes Due to a high probability of clinically significant, life threatening deterioration, the patient required my highest level of preparedness to intervene emergently and I personally spent this critical care time directly and personally managing the patient. This critical care time included obtaining a history; examining the patient; pulse oximetry; ordering and review of studies; arranging urgent treatment with development of a management plan; evaluation of patient's response to treatment; frequent reassessment; and discussions with other providers. It was exclusive of separately billable procedures and treating other patients and teaching time. Please see Assessment and Plan section and the rest of the note for further information on patient assessment and treatment This dictation may have been done utilizing a voice recognition system. Attempts have been made to correct errors. However, there may be uncorrected grammatical, spelling, and recognitions errors present. 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 Patient was awake when he arrived to the ER, was denying any headaches, chest pain, abdominal pain. According the records and nursing staff at the residential stated that the patient was alert on the morning of admission but when they went to check in the afternoon he was found to be altered and was having difficulty breathing. In the ED patient was given 2 L IV fluid bolus of normal saline, started on cefepime and vancomycin and was transferred to the intermediate Unit for further management. Upon arrival to the intermediate unit patient was tachypneic, tachycardic, hypoxic in the 80s on 15 L non-rebreather mask, rapid response was called and patient was emergently intubated by ER physician. Sedated with fentanyl and Versed infusion. Overnight patient's blood pressures dropped, started him on peripheral Toan-Synephrine. Centralized was inserted by myself morning of 02/18/2025. Patient was significantly dry upon placing the central line, I have ordered 1 L LR bolus. Patient has been maxed out on Toan-Synephrine at 180 mcg/min. Have ordered Levophed to be started to maintain a MAP> 65 mmHg. Patient this morning is on 60% FiO2 and hypoxic on the ABGs. White count dropped to 3.8 from 17.2 yesterday. Hemoglobin remains stable, potassium of 2.9 and sodium of 149. BUN is 47 creatinine 0.83. CO2 21, patient remains on sodium bicarb infusion. Lactic acid was 2.8 and repeat was 2.1. UA was positive, patient was positive for MRSA screen CT brain on admission did not show any acute intracranial hemorrhage or mass effect. Possible chronic ischemic white matter changes CT T chest abdomen and pelvis on admission: Moderate-sized down denies opacities scattered throughout both lungs most prominent lower lobes patchy consolidation scattered throughout both lungs most prominent in the lower lobe, findings are concerning for multilobar pneumonia. Large amount of stool in the rectum, Daniels catheterization and a bladder, mild concentric thickening of the calvo of the bladder small amount of nondependent air in the bladder which may be due to recent instrumentation or cystitis. The stomach is distended and filled with air. Small amount of fat stranding with few locules of a around the posterior aspect of mid and distal sacrum no obvious loculated fluid collection identified no convincing CT evidence of sacral osteomyelitis at this time Patient seen and examined this morning in the ICU, remains intubated on CMV mode of ventilation, peep of 8 and 60% FiO2, I increase the PEEP to 10 with improved O2 sats. Patient is sedated with fentanyl and Versed infusion, does not open his eyes or follow simple commands, does withdraw to pain. He remains tachypneic and tachycardic. Urine output has been good, febrile with T-max of 100? point. Remains on Toan-Synephrine at 180 mcg/min Review of Systems Review of Systems: ROS unobtainable: Yes unobtainable due to endotracheal tube, unobtainable due to medical condition and unobtainable due to mental status PMFSH Past Medical History Medical History (Updated 02/18/25 @ 09:25 by David Naylor MD) History of left heart catheterization Elevated lipids Diabetes Asthma Arthritis Surgical History Surgical History History of lumbosacral spine surgery Family History Family History Mother Family history of primary malignant neoplasm of liver, Onset Age: 69 Social History Social History Smoking status: Former smoker Meds Home Medications and Allergies Home Medications ?Medication ?Instructions ?Recorded ?Confirmed ?Type aspirin 81 mg tablet,delayed 81 mg PO DAILY 06/01/19 02/18/25 History release cyclobenzaprine 10 mg tablet 10 mg PO Q8H 06/01/19 02/18/25 History metformin 1,000 mg tablet 1,000 mg PO BID 06/01/19 02/18/25 History insulin glargine 100 unit/mL (3 20 unit subcut HS 01/05/20 02/18/25 History mL) subcutaneous pen (Lantus Solostar U-100 Insulin) acetaminophen 500 mg tablet 1,000 mg PO Q6H PRN pain 02/18/25 02/18/25 History albuterol sulfate 90 mcg/actuation 2 inh inhalation Q6H PRN shortness 02/18/25 02/18/25 History breath activated powder of breath inhaler,sensor (Proair Digihaler) ascorbic acid (vitamin C) 500 mg 500 mg PO DAILY 02/18/25 02/18/25 History tablet docusate sodium 100 mg tablet 100 mg PO BID 02/18/25 02/18/25 History docusate sodium 100 mg tablet 100 mg PO Q12H PRN constipation 02/18/25 02/18/25 History empagliflozin 25 mg tablet 25 mg PO DAILY 02/18/25 02/18/25 History (Jardiance) ergocalciferol (vitamin D2) 50 mcg 50 mcg PO DAILY 02/18/25 02/18/25 History (2,000 unit) tablet ferrous sulfate 325 mg (65 mg 325 mg PO DAILY 02/18/25 02/18/25 History iron) tablet (Xiomy-Time) fluticasone propionate 50 2 spray intranasal DAILY 02/18/25 02/18/25 History mcg/actuation nasal spray,suspension melatonin 3 mg tablet 3 mg PO HS PRN insomnia 02/18/25 02/18/25 History multivitamin with iron-mineral 1 tablet PO DAILY 02/18/25 02/18/25 History nifedipine 30 mg tablet,extended 30 mg PO .qday 02/18/25 02/18/25 History release 24 hr ropinirole 1 mg tablet 1 mg PO DAILY 02/18/25 02/18/25 History Allergies Allergy/AdvReac Type Severity Reaction Status Date / Time codeine Allergy Unknown Unknown Verified 12/16/24 18:40 Vital Signs Vital Signs - 24 hr 02/17/25 14:28 02/17/25 14:31 02/17/25 15:07 Temperature 100.1 F H Pulse Rate 136 H 129 H Respiratory Rate 33 H 35 H Blood Pressure 111/70 Pulse Oximetry 84 L 93 90 Oxygen Delivery Nasal Cannula Nasal Cannula Oxygen Flow Rate 4 4 Fraction of Inspired Oxygen 02/17/25 15:34 02/17/25 16:00 02/17/25 16:01 Temperature Pulse Rate 126 H 134 H Respiratory Rate 28 H 30 H 28 H Blood Pressure 106/64 105/71 Pulse Oximetry 90 87 L 86 L Oxygen Delivery Oxygen Flow Rate Fraction of Inspired Oxygen 02/17/25 16:06 02/17/25 16:16 02/17/25 16:31 Temperature Pulse Rate 119 H 122 H Respiratory Rate 30 H 27 H Blood Pressure 107/71 113/69 Pulse Oximetry 87 L 96 99 Oxygen Delivery Nasal Cannula Oxygen Flow Rate 6 Fraction of Inspired Oxygen 02/17/25 17:04 02/17/25 17:16 02/17/25 17:31 Temperature Pulse Rate 122 H 120 H 115 H Respiratory Rate 32 H 31 H 35 H Blood Pressure 121/72 109/67 130/69 Pulse Oximetry 95 93 90 Oxygen Delivery Oxygen Flow Rate Fraction of Inspired Oxygen 02/17/25 17:45 02/17/25 17:46 02/17/25 18:01 Temperature 97.8 F Pulse Rate 122 H 122 H 123 H Respiratory Rate 33 H 30 H 32 H Blood Pressure 106/74 110/75 Pulse Oximetry 92 Oxygen Delivery Oxygen Flow Rate Fraction of Inspired Oxygen 02/17/25 18:28 02/17/25 18:31 02/17/25 18:46 Temperature 98.5 F 97.7 F Pulse Rate 88 126 H 124 H Respiratory Rate 20 35 H 32 H Blood Pressure 110/74 106/71 Pulse Oximetry 98 92 90 Oxygen Delivery Oxygen Flow Rate Fraction of Inspired Oxygen 02/17/25 19:00 02/17/25 19:05 02/17/25 19:43 Temperature Pulse Rate 137 H 131 H 136 H Respiratory Rate 36 H Blood Pressure 103/66 Pulse Oximetry 90 70 L Oxygen Delivery High Flow Therapy with Na Nasal Cannula Oxygen Flow Rate 60 6 Fraction of Inspired Oxygen 90 02/17/25 19:45 02/17/25 20:00 02/17/25 20:00 Temperature 98.6 F 98.6 F Pulse Rate 135 H 127 H 126 H Respiratory Rate 25 H 30 H Blood Pressure 110/73 107/78 Pulse Oximetry 91 97 87 L Oxygen Delivery Mechanical Ventilation Oxygen Flow Rate Fraction of Inspired Oxygen 100 02/17/25 20:00 02/17/25 20:00 02/17/25 20:05 Temperature Pulse Rate 124 H 129 H Respiratory Rate 22 H Blood Pressure Pulse Oximetry 100 Oxygen Delivery Mechanical Ventilation Oxygen Flow Rate Fraction of Inspired Oxygen 100 100 02/17/25 20:15 02/17/25 20:15 02/17/25 20:15 Temperature Pulse Rate 120 H 120 H 128 H Respiratory Rate 33 H 33 H 34 H Blood Pressure 112/78 Pulse Oximetry 98 Oxygen Delivery Oxygen Flow Rate Fraction of Inspired Oxygen 02/17/25 20:30 02/17/25 20:49 02/17/25 20:49 Temperature Pulse Rate 123 H 120 H 120 H Respiratory Rate 29 H 25 H 25 H Blood Pressure 107/77 Pulse Oximetry 100 Oxygen Delivery Oxygen Flow Rate Fraction of Inspired Oxygen 02/17/25 21:00 02/17/25 21:15 02/17/25 21:15 Temperature Pulse Rate 119 H 118 H 118 H Respiratory Rate 26 H 27 H 27 H Blood Pressure 93/67 L Pulse Oximetry 100 Oxygen Delivery Oxygen Flow Rate Fraction of Inspired Oxygen 02/17/25 21:30 02/17/25 22:00 02/17/25 22:00 Temperature Pulse Rate 123 H 123 H Respiratory Rate 24 H 24 H Blood Pressure Pulse Oximetry Oxygen Delivery Oxygen Flow Rate Fraction of Inspired Oxygen 60 02/17/25 22:00 02/17/25 22:00 02/17/25 23:00 Temperature Pulse Rate 123 H 123 H 117 H Respiratory Rate 26 H 24 H Blood Pressure 101/70 82/63 L Pulse Oximetry 96 93 Oxygen Delivery Oxygen Flow Rate Fraction of Inspired Oxygen 02/17/25 23:10 02/18/25 00:00 02/18/25 00:00 Temperature 97.7 F Pulse Rate 117 H 117 H 118 H Respiratory Rate 22 H Blood Pressure 86/63 L Pulse Oximetry 92 93 Oxygen Delivery Mechanical Ventilation Oxygen Flow Rate Fraction of Inspired Oxygen 60 02/18/25 00:00 02/18/25 00:00 02/18/25 00:00 Temperature Pulse Rate 118 H 118 H Respiratory Rate 22 H 22 H Blood Pressure Pulse Oximetry 94 Oxygen Delivery Mechanical Ventilation Oxygen Flow Rate Fraction of Inspired Oxygen 60 02/18/25 00:00 02/18/25 01:00 02/18/25 01:00 Temperature Pulse Rate 121 H 121 H Respiratory Rate 22 H 22 H Blood Pressure 88/55 L Pulse Oximetry 94 Oxygen Delivery Oxygen Flow Rate Fraction of Inspired Oxygen 60 02/18/25 01:00 02/18/25 01:20 02/18/25 01:20 Temperature Pulse Rate 121 H 123 H 123 H Respiratory Rate 22 H 29 H 22 H Blood Pressure Pulse Oximetry Oxygen Delivery Oxygen Flow Rate Fraction of Inspired Oxygen 02/18/25 02:00 02/18/25 02:00 02/18/25 02:00 Temperature Pulse Rate 133 H 133 H 142 H Respiratory Rate 29 H 29 H Blood Pressure 108/71 Pulse Oximetry 91 Oxygen Delivery Oxygen Flow Rate Fraction of Inspired Oxygen 02/18/25 02:00 02/18/25 02:15 02/18/25 03:00 Temperature Pulse Rate 142 H 141 H 144 H Respiratory Rate 22 H Blood Pressure 74/52 L Pulse Oximetry 91 Oxygen Delivery Mechanical Ventilation Oxygen Flow Rate Fraction of Inspired Oxygen 60 02/18/25 03:00 02/18/25 03:15 02/18/25 03:15 Temperature Pulse Rate 136 H 128 H 128 H Respiratory Rate 22 H Blood Pressure 74/52 L 85/53 L 85/53 L Pulse Oximetry 94 Oxygen Delivery Oxygen Flow Rate Fraction of Inspired Oxygen 02/18/25 03:30 02/18/25 03:30 02/18/25 04:00 Temperature Pulse Rate 128 H 128 H Respiratory Rate 22 H 22 H Blood Pressure Pulse Oximetry Oxygen Delivery Oxygen Flow Rate Fraction of Inspired Oxygen 60 02/18/25 04:00 02/18/25 04:00 02/18/25 04:00 Temperature 96.6 F L Pulse Rate 127 H 127 H Respiratory Rate 31 H Blood Pressure 84/57 L Pulse Oximetry 90 91 Oxygen Delivery Mechanical Ventilation Oxygen Flow Rate Fraction of Inspired Oxygen 60 02/18/25 04:00 02/18/25 04:00 02/18/25 04:00 Temperature Pulse Rate 127 H 127 H 127 H Respiratory Rate 31 H 31 H Blood Pressure 84/57 L Pulse Oximetry Oxygen Delivery Oxygen Flow Rate Fraction of Inspired Oxygen 02/18/25 04:29 02/18/25 04:30 02/18/25 04:55 Temperature Pulse Rate 126 H 126 H 123 H Respiratory Rate 35 H 35 H Blood Pressure Pulse Oximetry 92 Oxygen Delivery Mechanical Ventilation Oxygen Flow Rate Fraction of Inspired Oxygen 60 02/18/25 05:00 02/18/25 05:20 02/18/25 05:46 Temperature Pulse Rate 121 H 122 H 118 H Respiratory Rate 30 H Blood Pressure 80/62 L 75/54 L 71/55 L Pulse Oximetry 91 Oxygen Delivery Oxygen Flow Rate Fraction of Inspired Oxygen 02/18/25 06:00 02/18/25 06:00 02/18/25 06:00 Temperature Pulse Rate 117 H 117 H 118 H Respiratory Rate 28 H 28 H Blood Pressure 76/55 L Pulse Oximetry Oxygen Delivery Oxygen Flow Rate Fraction of Inspired Oxygen 02/18/25 06:00 02/18/25 06:00 02/18/25 06:00 Temperature Pulse Rate 118 H 117 H 117 H Respiratory Rate 27 H Blood Pressure 76/55 L 81/60 L Pulse Oximetry 93 Oxygen Delivery Oxygen Flow Rate Fraction of Inspired Oxygen 02/18/25 06:15 02/18/25 07:00 02/18/25 07:24 Temperature Pulse Rate 118 H 121 H 122 H Respiratory Rate 28 H Blood Pressure 81/60 L 89/58 L 75/57 L Pulse Oximetry 95 Oxygen Delivery Oxygen Flow Rate Fraction of Inspired Oxygen 02/18/25 07:33 02/18/25 07:34 02/18/25 07:48 Temperature 100.6 F H Pulse Rate 123 H 120 H Respiratory Rate Blood Pressure 92/66 L Pulse Oximetry 93 Oxygen Delivery Mechanical Ventilation Oxygen Flow Rate Fraction of Inspired Oxygen 60 02/18/25 08:00 02/18/25 08:05 02/18/25 08:05 Temperature Pulse Rate 122 H 122 H 122 H Respiratory Rate 32 H 32 H 32 H Blood Pressure 98/65 L Pulse Oximetry 91 Oxygen Delivery Oxygen Flow Rate Fraction of Inspired Oxygen 02/18/25 09:00 Temperature 99.7 F H Pulse Rate 121 H Respiratory Rate 29 H Blood Pressure 101/71 Pulse Oximetry 95 Oxygen Delivery Oxygen Flow Rate Fraction of Inspired Oxygen Exam Narrative: General: Her intubated and sedated, in no acute distress HEENT:? Pupils equal and reactive, sclera is clear Neck:? Supple Respiratory:? Coarse breath sounds bilaterally, decreased at bases, no wheezing, adequate air entry Cardiac:? S1-S2 is normal, sinus tachycardia Abdomen:? Scaphoid abdomen, soft, nontender, hypoactive bowel sounds, patient cachectic and malnourished Extremities:? No edema, decreased pedal pulses but dopplerable Neuro:? Patient is intubated, sedated, does not open his eyes or follow simple commands, withdraws to pain Skin:? old healing ulcers on the foot bilateral Psych:? Unable to assess at this time Results Labs 02/18/25 03:48 02/18/25 03:48 Labs: Short CBC 02/17/25 02/18/25 Range/Units 15:08 03:48 WBC 17.2 H 3.8 L (4.5-10.0) K/mm3 Hgb 12.9 L 12.4 L (14.0-18.0) g/dL Hct 40.9 L 39.0 L (42.0-52.0) % Plt Count 351 263 (150-375) k/mm3 BMP 02/17/25 02/18/25 15:08 03:48 Sodium 142 149 H Potassium 4.1 2.9 L Chloride 107 113 H Carbon Dioxide 7 L 21 L BUN 53 H D 47 H Creatinine 1.29 0.83 Glucose 284 H 153 H Calcium 9.7 9.0 Liver Function 02/17/25 02/18/25 Range/Units 15:08 03:48 Total Bilirubin 0.6 0.8 (0.2-1.3) mg/dL AST 30 33 (17-59) U/L ALT 19 18 (6-50) U/L Alkaline Phosphatase 136 H 101 (38-126) U/L Albumin 4.0 3.3 L (3.5-5.1) g/dL Urine 02/17/25 Range/Units 15:08 Urine Color Yellow (Yellow) Urine Appearance Turbid H (Clear) Urine pH 7.5 (5.0-9.0) Ur Specific [place] 1.024 (1.001-1.035) Urine Protein 1+ H (Negative) mg/dL Urine Glucose (UA) 3+ H (Negative) mg/dL Quality VTE Prophylaxis VTE prophylaxis: pharmacologic ordered Hospitalist MIPS Advance Care Plan I have confirmed that the patient's Advanced Care Plan is present, code status is documented, or surrogate decision maker is listed in patient medical record.: Yes Medication Reconciliation I have utilized all available resources to obtain, update and review the patients current medications (includes all prescriptions, OTC, herbals, cannabis, and nutritional supplements).: Yes
[2025-02-18] MEDS: DOXYCYCLINE IV 100 MG in SODIUM CHLORIDE 0.9% IV 100 ML IVPB ×2 (09:19→21:13)
[2025-02-18] MEDS: MINERAL OIL/WHITE PETROLATUM OINTMENT 1 APPLIC EACH EYE ×2 (09:23→21:13)
[2025-02-18 09:50] LABS: Influenza A QL RT-PCR Negative (Negative); Influenza B QL RT-PCR Negative (Negative); RSV RNA, RT-PCR Negative (Negative); SARS-CoV-2 RNA PCR Negative (Negative)
[2025-02-18] MEDS: PHENYLEPHRINE HCL INJ 50 MG in SODIUM CHLORIDE 0.9% IV 245 ML 54 ML IV CONT ×3 (10:24→20:00)
[2025-02-18] MEDS: IPRATROPIUM BR 0.02% INH SOLN 0.5 MG/2.5 ML VIAL INHALATION ×3 (10:51→20:31)
[2025-02-18] MEDS: FOLIC ACID 1 MG/0.2 ML INJ IV PUSH (14:21)
[2025-02-18] MEDS: THIAMINE HCL 200 MG/2 ML VIAL 100 MG IV PUSH (14:21)
[2025-02-18] MEDS: VANCOMYCIN 750 MG/NS 250 ML 750 MG/250 ML BAG 250 MG IVPB (14:26)
[2025-02-18] MEDS: ACETAMINOPHEN 325 MG TABLET 650 MG FEED TUBE (14:31)
[2025-02-18 16:14] LABS: Anion Gap 15 mmol/L (4-12); Blood Urea Nitrogen 33 mg/dL (9-20); Calcium 8.5 mg/dL (8.4-10.2); Carbon Dioxide 22 mmol/L (22-30); Chloride 111 mmol/L (98-107); Estimated CRCL calculation 75 ml/min; Estimated Glomerular Filt Rate > 60; Glucose 114 mg/dL (65-110); Potassium 3.1 mmol/L (3.4-5.0); Sodium 148 mmol/L (137-145)
--- NOTE | 2025-02-18 16:45 | PC.NURSE ---
This RN notified Dr. Naylor of pt's lab results. Wendy entered
--- NOTE | 2025-02-18 17:14 | PM.IMPN ---
Progress Note: A&P Assessment and Plan (1) Septic shock: Code(s): A41.9 - Sepsis, unspecified organism; R65.21 - Severe sepsis with septic shock Status: Acute Assessment and Plan: 02/17: Patient presented from a [facility]cc with AMS and SOB. WBC 17K. Bicarb 7 (AG 28). UA consistent with UTI CT Ch/A/P showing ground-glass opacities throughout both lungs, thickening of bladder wall, large stool ball, distended stomach, and small amount of fat stranding with a few locules of air in the mid and distal sacrum. Sepsis with lactic acidosis, leukocytosis, resp failure, tachycardia, fever felt related to pneumonia and UTI +/- sacral decub Received 2L IV fluid bolus in ER and started on cefepime and vancomycin (02/17) Admitted to IMU but he decompensated and rapid response was called Patient intubated 02/17 and started on Phenylephrine for hypoxia and hypotension. BCx 02/17 - NGTD UCx 02/17 - pending Sputum Cx 02/18 - pending. Central line placed today. He is maxed on phenylephrine. Fluid bolus 1L given and Levophed added. Doxy added today (2) Acute respiratory failure: Code(s): J96.00 - Acute respiratory failure, unspecified whether with hypoxia or hypercapnia Status: Acute Assessment and Plan: Patient was transferred to the ICU from IMU for acute respiratory failure and emergently intubated (02/17) Probably related to multifocal pneumonia CXR today showing bibasilar airspace disease. ABG 7.44/ on MV Intensivsit consulted and appreciate their input Vent management per battery vent plug inserter (3) Multifocal pneumonia: Code(s): J18.8 - Other pneumonia, unspecified organism Status: Acute Assessment and Plan: Multifocal pneumonia by imaging. Abx as above. Followed on culture results (4) Acute UTI: Code(s): N39.0 - Urinary tract infection, site not specified Status: Acute Assessment and Plan: UA was positive for UTI Complicated UTI with SP catheter Continue Abx as above (5) Diabetes: Code(s): E11.9 - Type 2 diabetes mellitus without complications Status: Acute Assessment and Plan: The patient's blood glucose was reviewed on 02/18 Glucose remains well controlled. Continue AccuCheks covering with sliding scale. Hypoglycemia protocol available as needed. Continue to monitor (6) Sacral ulcer: Code(s): L98.429 - Non-pressure chronic ulcer of back with unspecified severity Status: Acute Assessment and Plan: Patient has a sacral ulcer noted present on admission. CT Abd/Pelvis showing small amount of fat stranding with a few locules of air about the posterior aspect of the mid and distal sacrum. No obvious loculated fluid collection identified. No convincing CT evidence for sacral osteomyelitis at this time. Wound Care to evaluate Plan DVT prophylaxis: Heparin subQ Stress ulcer prophylaxis: Protonix Nutrition: NPO Code Status: Full code Subjective Date/time seen: 02/18/25 17:14 Interval history: 64yo male with HLD, DM and Asthma who presents with altered mental status and hypoxia from his mcc. Rapid response called once patient arrived to floor for being hypoxic. Assuming care. Chart reviewed. Patint is intubated and sedated. Central line placed. Coccyx wound noted on admission. Amiodarone was started overnight for tachycardia but felt to be sinus mechanism so this ws stopped. Sedation increased this morning. Fluid bolus add Levophed added. Exam Narrative: Tm 101.9 98.9 101/63 112 22 97% MV Gen - intubated and sedated HEENT - NGT right nares. ETT secured. Neck - TLC right IJ Chest - coarse BS anteriorly. right flank crackles. CV - tachycardic. Tele showing sinus tachycardia Abd - Soft, scaphoid. Suprapubic site clean and dry. SP catheter secured draining clear yellow urine Ext - No pedal edema. cap refill 3-4 sec Neuro - sedated Psych - unable to assess Skin - Warm and dry Objective Data Vital Signs Vital Signs: Vital Signs - 24 hr 02/17/25 17:16 02/17/25 17:31 02/17/25 17:45 Temperature Pulse Rate 120 H 115 H 122 H Respiratory Rate 31 H 35 H 33 H Blood Pressure 109/67 130/69 Pulse Oximetry 93 90 Oxygen Delivery Oxygen Flow Rate Fraction of Inspired Oxygen 02/17/25 17:46 02/17/25 18:01 02/17/25 18:28 Temperature 97.8 F 98.5 F Pulse Rate 122 H 123 H 88 Respiratory Rate 30 H 32 H 20 Blood Pressure 106/74 110/75 Pulse Oximetry 92 98 Oxygen Delivery Oxygen Flow Rate Fraction of Inspired Oxygen 02/17/25 18:31 02/17/25 18:46 02/17/25 19:00 Temperature 97.7 F Pulse Rate 126 H 124 H 137 H Respiratory Rate 35 H 32 H 36 H Blood Pressure 110/74 106/71 Pulse Oximetry 92 90 90 Oxygen Delivery High Flow Therapy with Na Oxygen Flow Rate 60 Fraction of Inspired Oxygen 90 02/17/25 19:05 02/17/25 19:43 02/17/25 19:45 Temperature 98.6 F Pulse Rate 131 H 136 H 135 H Respiratory Rate 25 H Blood Pressure 103/66 110/73 Pulse Oximetry 70 L 91 Oxygen Delivery Nasal Cannula Oxygen Flow Rate 6 Fraction of Inspired Oxygen 02/17/25 20:00 02/17/25 20:00 02/17/25 20:00 Temperature 98.6 F Pulse Rate 127 H 126 H 124 H Respiratory Rate 30 H 22 H Blood Pressure 107/78 Pulse Oximetry 97 87 L 100 Oxygen Delivery Mechanical Ventilation Mechanical Ventilation Oxygen Flow Rate Fraction of Inspired Oxygen 100 100 02/17/25 20:00 02/17/25 20:05 02/17/25 20:15 Temperature Pulse Rate 129 H 120 H Respiratory Rate 33 H Blood Pressure Pulse Oximetry Oxygen Delivery Oxygen Flow Rate Fraction of Inspired Oxygen 100 02/17/25 20:15 02/17/25 20:15 02/17/25 20:30 Temperature Pulse Rate 120 H 128 H 123 H Respiratory Rate 33 H 34 H 29 H Blood Pressure 112/78 107/77 Pulse Oximetry 98 100 Oxygen Delivery Oxygen Flow Rate Fraction of Inspired Oxygen 02/17/25 20:49 02/17/25 20:49 02/17/25 21:00 Temperature Pulse Rate 120 H 120 H 119 H Respiratory Rate 25 H 25 H 26 H Blood Pressure 93/67 L Pulse Oximetry 100 Oxygen Delivery Oxygen Flow Rate Fraction of Inspired Oxygen 02/17/25 21:15 02/17/25 21:15 02/17/25 21:30 Temperature Pulse Rate 118 H 118 H Respiratory Rate 27 H 27 H Blood Pressure Pulse Oximetry Oxygen Delivery Oxygen Flow Rate Fraction of Inspired Oxygen 60 02/17/25 22:00 02/17/25 22:00 02/17/25 22:00 Temperature Pulse Rate 123 H 123 H 123 H Respiratory Rate 24 H 24 H 26 H Blood Pressure 101/70 Pulse Oximetry 96 Oxygen Delivery Oxygen Flow Rate Fraction of Inspired Oxygen 02/17/25 22:00 02/17/25 23:00 02/17/25 23:10 Temperature Pulse Rate 123 H 117 H 117 H Respiratory Rate 24 H Blood Pressure 82/63 L Pulse Oximetry 93 92 Oxygen Delivery Mechanical Ventilation Oxygen Flow Rate Fraction of Inspired Oxygen 60 02/18/25 00:00 02/18/25 00:00 02/18/25 00:00 Temperature 97.7 F Pulse Rate 117 H 118 H 118 H Respiratory Rate 22 H 22 H Blood Pressure 86/63 L Pulse Oximetry 93 Oxygen Delivery Oxygen Flow Rate Fraction of Inspired Oxygen 02/18/25 00:00 02/18/25 00:00 02/18/25 00:00 Temperature Pulse Rate 118 H Respiratory Rate 22 H Blood Pressure Pulse Oximetry 94 Oxygen Delivery Mechanical Ventilation Oxygen Flow Rate Fraction of Inspired Oxygen 60 60 02/18/25 01:00 02/18/25 01:00 02/18/25 01:00 Temperature Pulse Rate 121 H 121 H 121 H Respiratory Rate 22 H 22 H 22 H Blood Pressure 88/55 L Pulse Oximetry 94 Oxygen Delivery Oxygen Flow Rate Fraction of Inspired Oxygen 02/18/25 01:20 02/18/25 01:20 02/18/25 02:00 Temperature Pulse Rate 123 H 123 H 133 H Respiratory Rate 29 H 22 H 29 H Blood Pressure 108/71 Pulse Oximetry 91 Oxygen Delivery Oxygen Flow Rate Fraction of Inspired Oxygen 02/18/25 02:00 02/18/25 02:00 02/18/25 02:00 Temperature Pulse Rate 133 H 142 H 142 H Respiratory Rate 29 H 22 H Blood Pressure Pulse Oximetry Oxygen Delivery Oxygen Flow Rate Fraction of Inspired Oxygen 02/18/25 02:15 02/18/25 03:00 02/18/25 03:00 Temperature Pulse Rate 141 H 144 H 136 H Respiratory Rate 22 H Blood Pressure 74/52 L 74/52 L Pulse Oximetry 91 94 Oxygen Delivery Mechanical Ventilation Oxygen Flow Rate Fraction of Inspired Oxygen 60 02/18/25 03:15 02/18/25 03:15 02/18/25 03:30 Temperature Pulse Rate 128 H 128 H 128 H Respiratory Rate 22 H Blood Pressure 85/53 L 85/53 L Pulse Oximetry Oxygen Delivery Oxygen Flow Rate Fraction of Inspired Oxygen 02/18/25 03:30 02/18/25 04:00 02/18/25 04:00 Temperature Pulse Rate 128 H Respiratory Rate 22 H Blood Pressure Pulse Oximetry 90 Oxygen Delivery Mechanical Ventilation Oxygen Flow Rate Fraction of Inspired Oxygen 60 60 02/18/25 04:00 02/18/25 04:00 02/18/25 04:00 Temperature 96.6 F L Pulse Rate 127 H 127 H 127 H Respiratory Rate 31 H Blood Pressure 84/57 L 84/57 L Pulse Oximetry 91 Oxygen Delivery Oxygen Flow Rate Fraction of Inspired Oxygen 02/18/25 04:00 02/18/25 04:00 02/18/25 04:29 Temperature Pulse Rate 127 H 127 H 126 H Respiratory Rate 31 H 31 H 35 H Blood Pressure Pulse Oximetry Oxygen Delivery Oxygen Flow Rate Fraction of Inspired Oxygen 02/18/25 04:30 02/18/25 04:55 02/18/25 05:00 Temperature Pulse Rate 126 H 123 H 121 H Respiratory Rate 35 H 30 H Blood Pressure 80/62 L Pulse Oximetry 92 91 Oxygen Delivery Mechanical Ventilation Oxygen Flow Rate Fraction of Inspired Oxygen 60 02/18/25 05:20 02/18/25 05:46 02/18/25 06:00 Temperature Pulse Rate 122 H 118 H 117 H Respiratory Rate Blood Pressure 75/54 L 71/55 L 76/55 L Pulse Oximetry Oxygen Delivery Oxygen Flow Rate Fraction of Inspired Oxygen 02/18/25 06:00 02/18/25 06:00 02/18/25 06:00 Temperature Pulse Rate 117 H 118 H 118 H Respiratory Rate 28 H 28 H Blood Pressure 76/55 L Pulse Oximetry Oxygen Delivery Oxygen Flow Rate Fraction of Inspired Oxygen 02/18/25 06:00 02/18/25 06:00 02/18/25 06:15 Temperature Pulse Rate 117 H 117 H 118 H Respiratory Rate 27 H Blood Pressure 81/60 L 81/60 L Pulse Oximetry 93 Oxygen Delivery Oxygen Flow Rate Fraction of Inspired Oxygen 02/18/25 07:00 02/18/25 07:24 02/18/25 07:33 Temperature Pulse Rate 121 H 122 H 123 H Respiratory Rate 28 H Blood Pressure 89/58 L 75/57 L Pulse Oximetry 95 93 Oxygen Delivery Mechanical Ventilation Oxygen Flow Rate Fraction of Inspired Oxygen 60 02/18/25 07:34 02/18/25 07:48 02/18/25 08:00 Temperature 100.6 F H Pulse Rate 120 H 122 H Respiratory Rate 32 H Blood Pressure 92/66 L 98/65 L Pulse Oximetry 91 Oxygen Delivery Oxygen Flow Rate Fraction of Inspired Oxygen 02/18/25 08:00 02/18/25 08:00 02/18/25 08:00 Temperature Pulse Rate 120 H 120 H Respiratory Rate 27 H Blood Pressure 98/65 L Pulse Oximetry 96 Oxygen Delivery Mechanical Ventilation Oxygen Flow Rate Fraction of Inspired Oxygen 60 60 02/18/25 08:00 02/18/25 08:05 02/18/25 08:05 Temperature Pulse Rate 117 H 122 H 122 H Respiratory Rate 32 H 32 H Blood Pressure Pulse Oximetry Oxygen Delivery Oxygen Flow Rate Fraction of Inspired Oxygen 02/18/25 08:30 02/18/25 08:30 02/18/25 08:30 Temperature Pulse Rate 120 H 120 H Respiratory Rate 28 H 28 H Blood Pressure Pulse Oximetry Oxygen Delivery Oxygen Flow Rate Fraction of Inspired Oxygen 60 02/18/25 08:35 02/18/25 08:45 02/18/25 09:00 Temperature 99.7 F H Pulse Rate 120 H 121 H 121 H Respiratory Rate 29 H Blood Pressure 85/63 L 93/67 L 101/71 Pulse Oximetry 95 Oxygen Delivery Oxygen Flow Rate Fraction of Inspired Oxygen 02/18/25 09:00 02/18/25 09:24 02/18/25 09:30 Temperature Pulse Rate 122 H 119 H 118 H Respiratory Rate Blood Pressure 101/71 93/71 L 90/66 L Pulse Oximetry Oxygen Delivery Oxygen Flow Rate Fraction of Inspired Oxygen 02/18/25 09:46 02/18/25 10:00 02/18/25 10:00 Temperature 99.8 F H Pulse Rate 117 H 120 H 120 H Respiratory Rate 27 H Blood Pressure 91/69 L 108/75 108/75 Pulse Oximetry 96 Oxygen Delivery Oxygen Flow Rate Fraction of Inspired Oxygen 02/18/25 10:00 02/18/25 10:00 02/18/25 10:00 Temperature Pulse Rate 120 H 122 H 122 H Respiratory Rate 26 H 26 H Blood Pressure 108/75 Pulse Oximetry Oxygen Delivery Oxygen Flow Rate Fraction of Inspired Oxygen 02/18/25 10:00 02/18/25 10:24 02/18/25 10:50 Temperature Pulse Rate 120 H 121 H 119 H Respiratory Rate 26 H Blood Pressure 102/73 Pulse Oximetry Oxygen Delivery Oxygen Flow Rate Fraction of Inspired Oxygen 02/18/25 10:57 02/18/25 11:00 02/18/25 11:03 Temperature 100.1 F H Pulse Rate 118 H 118 H 118 H Respiratory Rate 24 H 26 H Blood Pressure 113/77 Pulse Oximetry 97 98 Oxygen Delivery Mechanical Ventilation Oxygen Flow Rate Fraction of Inspired Oxygen 60 02/18/25 12:00 02/18/25 12:00 02/18/25 12:00 Temperature Pulse Rate 118 H 118 H 118 H Respiratory Rate 24 H Blood Pressure 109/75 109/75 109/75 Pulse Oximetry 97 Oxygen Delivery Oxygen Flow Rate Fraction of Inspired Oxygen 02/18/25 12:00 02/18/25 12:00 02/18/25 12:00 Temperature Pulse Rate 118 H 118 H 118 H Respiratory Rate 25 H 25 H 25 H Blood Pressure Pulse Oximetry 97 Oxygen Delivery Mechanical Ventilation Oxygen Flow Rate Fraction of Inspired Oxygen 60 02/18/25 12:00 02/18/25 12:00 02/18/25 12:15 Temperature Pulse Rate 118 H 118 H Respiratory Rate Blood Pressure 107/74 Pulse Oximetry Oxygen Delivery Oxygen Flow Rate Fraction of Inspired Oxygen 60 02/18/25 12:40 02/18/25 13:00 02/18/25 13:57 Temperature 100.6 F H Pulse Rate 116 H 118 H Respiratory Rate 25 H 24 H Blood Pressure 104/75 Pulse Oximetry 96 Oxygen Delivery Oxygen Flow Rate Fraction of Inspired Oxygen 02/18/25 14:00 02/18/25 14:00 02/18/25 14:00 Temperature 101.1 F H Pulse Rate 118 H 118 H 118 H Respiratory Rate 23 H Blood Pressure 106/71 106/71 106/71 Pulse Oximetry 98 Oxygen Delivery Oxygen Flow Rate Fraction of Inspired Oxygen 02/18/25 14:00 02/18/25 14:00 02/18/25 14:00 Temperature Pulse Rate 118 H 118 H 118 H Respiratory Rate 24 H 24 H Blood Pressure Pulse Oximetry Oxygen Delivery Oxygen Flow Rate Fraction of Inspired Oxygen 02/18/25 14:05 02/18/25 14:05 02/18/25 14:05 Temperature Pulse Rate 121 H 113 H Respiratory Rate 22 H Blood Pressure Pulse Oximetry 97 97 Oxygen Delivery Mechanical Ventilation Mechanical Ventilation Oxygen Flow Rate Fraction of Inspired Oxygen 50 50 50 02/18/25 14:10 02/18/25 14:15 02/18/25 14:30 Temperature Pulse Rate 120 H 120 H 122 H Respiratory Rate 25 H Blood Pressure 102/69 102/71 Pulse Oximetry Oxygen Delivery Oxygen Flow Rate Fraction of Inspired Oxygen 02/18/25 14:31 02/18/25 14:45 02/18/25 14:57 Temperature 101.1 F H Pulse Rate 121 H 119 H Respiratory Rate Blood Pressure 98/67 L 98/67 L Pulse Oximetry Oxygen Delivery Oxygen Flow Rate Fraction of Inspired Oxygen 02/18/25 14:57 02/18/25 15:00 02/18/25 15:00 Temperature 101.9 F H Pulse Rate 119 H 119 H 119 H Respiratory Rate 23 H Blood Pressure 98/67 L 100/69 100/69 Pulse Oximetry 97 Oxygen Delivery Oxygen Flow Rate Fraction of Inspired Oxygen 02/18/25 15:15 02/18/25 15:30 02/18/25 15:31 Temperature 100.9 F H Pulse Rate 119 H 118 H Respiratory Rate Blood Pressure 88/59 L 105/65 Pulse Oximetry Oxygen Delivery Oxygen Flow Rate Fraction of Inspired Oxygen 02/18/25 15:46 02/18/25 16:00 02/18/25 16:00 Temperature Pulse Rate 116 H 113 H 113 H Respiratory Rate Blood Pressure 100/63 98/61 L 98/61 L Pulse Oximetry Oxygen Delivery Oxygen Flow Rate Fraction of Inspired Oxygen 02/18/25 16:00 02/18/25 16:01 02/18/25 16:01 Temperature 98.9 F Pulse Rate 112 H 113 H 113 H Respiratory Rate 23 H 22 H 22 H Blood Pressure 98/61 L Pulse Oximetry 98 Oxygen Delivery Oxygen Flow Rate Fraction of Inspired Oxygen 02/18/25 16:05 02/18/25 16:05 02/18/25 16:33 Temperature Pulse Rate 114 H 112 H Respiratory Rate 22 H Blood Pressure 94/62 L Pulse Oximetry 96 Oxygen Delivery Mechanical Ventilation Oxygen Flow Rate Fraction of Inspired Oxygen 50 50 02/18/25 16:33 02/18/25 16:47 Temperature Pulse Rate 111 H 112 H Respiratory Rate Blood Pressure 101/63 Pulse Oximetry 97 Oxygen Delivery Mechanical Ventilation Oxygen Flow Rate Fraction of Inspired Oxygen 50 Intake/Output Intake/Output: Intake & Output 02/15/25 02/16/25 02/17/25 02/18/25 23:59 23:59 23:59 23:59 Intake Total 2839.6 4137.7 Output Total 500 650 Balance 2339.6 3487.7 Meds/Results Medications: Active Medications Generic Name Dose Route Start Last Admin Trade Name Freq PRN Reason Stop Dose Admin Acetaminophen 650 mg 02/17/25 20:19 02/18/25 14:31 Acetaminophen 325 Mg Tablet FEED TUBE 650 mg Q4H PRN Administration Mild Pain (1-3) or Fever Bisacodyl 10 mg 02/17/25 17:48 Bisacodyl 10 Mg Suppository RECTAL ONCE PRN Constipation Dextrose 12.5 gm 02/17/25 21:35 Dextrose 50% 25 Gm/50 Ml Syringe IV PUSH PRN PRN Hypoglycemia Protocol Folic Acid 1 mg 02/19/25 09:00 Folic Acid 1 Mg/0.2 Ml Inj IV PUSH QAM KENNETH Glucagon 1 mg 02/17/25 21:35 Glucagon For Inj 1 Mg Vial IM PRN PRN Hypoglycemia Protocol Glucose 15 gm 02/17/25 21:35 Glucose Oral Gel 15 Gm Of Glucse In 37.5 Gm Tube PO PRN PRN Hypoglycemia Protocol Heparin Sodium (Porcine) 5,000 units 02/18/25 14:00 02/18/25 14:21 Heparin Sodium 5,000 Units/Ml Vial SUB-Q 5,000 units Q8HR KENNETH Administration Cefepime HCl 2 gm/ Sodium 50 mls @ 100 mls/hr 02/18/25 06:00 02/18/25 06:25 Chloride IVPB Infused Q12H KENNETH Infusion Fentanyl Citrate 2,500 mcg in 250 mls @ 7.5 mls/hr 02/17/25 20:10 02/18/25 16:01 Fentanyl 2,500 Mcg/Ns 250 Ml IV CONT 75 mcg/hr .[id number] KENNETH 7.5 mls/hr Protocol Titration 75 MCG/HR Midazolam HCl 100 mg in 100 mls @ 3 mls/hr 02/17/25 20:10 02/18/25 16:01 Versed 100 Mg/Ns 100 Ml IV CONT 3 mg/hr .[id number] KENNETH 3 mls/hr Protocol Titration 3 MG/HR Dextrose 1,000 mls @ 100 mls/hr 02/17/25 21:35 Dextrose 5% 1,000 Ml IVPB PRN PRN Hypoglycemia Protocol Albumin Human 100 mls @ 60 mls/hr 02/18/25 02:45 02/18/25 14:17 Albutein IVPB 02/18/25 19:39 Infused Q6HR KENNETH Infusion Phenylephrine HCl 50 mg/ 250 mls @ 54 mls/hr 02/18/25 05:10 02/18/25 16:00 Sodium Chloride IV CONT 180 mcg/min .[id number] KENNETH 54 mls/hr Protocol Titration 180 MCG/MIN Vancomycin HCl 750 mg in 250 mls @ 250 mls/hr 02/18/25 15:00 02/18/25 16:01 Vancomycin 750 Mg/Ns 250 Ml IVPB Infused Q18H KENNETH Infusion Doxycycline Hyclate 100 mg/ 100 mls @ 100 mls/hr 02/18/25 08:00 02/18/25 10:25 Sodium Chloride IVPB Infused Q12H KENNETH Infusion Norepinephrine Bitartrate 8 mg in 250 mls @ 5.625 mls/hr 02/18/25 08:30 02/18/25 16:47 Levophed 8 Mg/D5w 250 Ml IV CONT 3 mcg/min .Q24H KENNETH 5.63 mls/hr Protocol Titration 3 MCG/MIN Lactated Ringer's 1,000 mls @ 75 mls/hr 02/18/25 16:45 Lr - Lactated Ringers Iv IV CONT .[id number] KENNETH Potassium Chloride 100 mls @ 25 mls/hr 02/18/25 16:45 Kcl 40 Meq/Water 100 Ml IVPB 02/18/25 20:44 ONCE ONE Insulin Aspart 3 - 6 units 02/18/25 00:00 02/18/25 16:23 Insulin Aspart (*Bkc) 100 Units/Ml SUB-Q Not Given Q4HR [facility] Protocol Ipratropium [place] 0.5 mg 02/18/25 09:35 02/18/25 13:56 Ipratropium Br 0.02% Inh Soln 0.5 Mg/2.5 Ml Vial INHALATION 0.5 mg Q6HRT [facility] Administration Levalbuterol HCl 0.63 mg 02/18/25 09:35 02/18/25 13:56 Levalbuterol Neb 1.25 Mg/3 Ml INHALATION 0.63 mg Q6HRT [facility] Administration Multi-Ingred Cream/Lotion/Oil/Oint 1 applic 02/17/25 21:00 02/18/25 09:23 Mineral Oil/White Petrolatum Ointment EACH EYE 1 applic Q12HR [facility] Administration Pantoprazole Sodium 40 mg 02/18/25 09:00 02/18/25 03:31 Pantoprazole Sodium Iv 40 Mg Vial IV PUSH 40 mg Q12HR KENNETH Administration Perflutren Lipid Microsphere 0 ml 02/18/25 07:28 Perflutren Lipid Microspheres 1.5 Ml Vial Diluted To 10 Ml Total Volume IV PUSH 02/21/25 07:28 ONCE PRN adequate visualization Protocol Senna/Docusate Sodium 1 tab 02/17/25 21:00 02/17/25 21:55 Senna/Docusate Sodium Tablet FEED TUBE 1 tab HS KENNETH Administration Sodium Chloride 10 ml 02/18/25 22:00 Central Line Flush IV PUSH Q8HR KENNETH Sodium Chloride 20 ml 02/18/25 16:07 Central Line Flush IV PUSH PRN PRN after blood draws Thiamine HCl 100 mg 02/19/25 09:00 Thiamine Hcl 200 Mg/2 Ml Vial IV PUSH QAM [facility] Radiology Results: ITS Impressions Head CT 02/17/25 16:55 IMPRESSION: 1. No acute intracranial hemorrhage. No mass effect. 2. Probable chronic ischemic white matter change. Chest/Abdomen/Pelvis CT 02/17/25 17:11 IMPRESSION: 1. Moderate sized groundglass opacities scattered throughout both lungs most prominent in the lower lobes. In addition, there are small to moderate sized patchy consolidations scattered throughout both lungs most prominent in the lower lobes. The findings are concerning for multilobar pneumonia. Other etiologies are possible but are felt to be less likely. Recommend follow-up to resolution. 2.There is a Daniels catheter in the bladder. Mild concentric thickening of the calvo of the bladder. Small amount of nondependent air in the bladder which may be due to recent instrumentation or cystitis. 3. Large amount of stool in the rectum. 4. The stomach is distended and filled with air. 5. Small amount of fat stranding with a few locules of air about the posterior aspect of the mid and distal sacrum. No obvious loculated fluid collection identified. No convincing CT evidence for sacral osteomyelitis at this time. Abdomen X-Ray 02/17/25 20:22 IMPRESSION: 1. Endotracheal tube and nasogastric tubes in expected position. 2. Patchy bilateral airspace opacities consistent with multifocal pneumonia. Chest X-Ray 02/18/25 08:39 Impression: 1: Right IJ central line tip in the SVC. No pneumothorax. 2: Patchy bilateral airspace disease unchanged, compatible with pneumonia. Labs Labs: Laboratory Results - last 24 hr 02/17/25 02/17/25 02/17/25 17:41 19:08 19:18 WBC RBC Hgb Hct MCV MCH MCHC RDW Plt Count MPV Immature Gran % (Auto) Neut % (Auto) Lymph % (Auto) [place] % (Auto) Eos % (Auto) Baso % (Auto) Lymph # (Auto) [place] # (Auto) Eos # (Auto) Baso # (Auto) Abs Immat Gran (auto) Absolute Neuts (auto) Absolute Nucleated RBC Band Neutrophils % Nucleated RBC % Platelet Estimate Rishi Cells Schistocytes Puncture Site Right radial ABG pH 7.302 L ABG pCO2 22.6 L* ABG pO2 56.4 L ABG PO2/FiO2 Ratio 0.63 ABG HCO3 10.9 L ABG O2 Saturation 87.3 L* ABG O2 Content 16.7 ABG Base Excess -13.4 A-a Gradient 562.1 Oxyhemoglobin 85.3 L* Carboxyhemoglobin 0.2 Methemoglobin 0.1 Reduced Hemoglobin 14.4 H Total Hemoglobin 13.9 O2 Delivery Device High flow therapy O2 Liters/Min 60.0 Minute Volume Vent Rate Vent Mode FiO2 90 Tidal Volume PEEP Peak Inspir Pressure Pressure Support Sodium Potassium Chloride Carbon Dioxide Anion Gap BUN Creatinine Estim Creat Clear Calc Estimated GFR Glucose POC Capillary Glucose 218 H Lactic Acid 2.1 H Calcium Phosphorus Magnesium Total Bilirubin AST ALT Alkaline Phosphatase Total Protein Albumin Nasal MRSA (PCR) Influenza A (RT-PCR) Influenza B (RT-PCR) RSV (RT-PCR) SARS-CoV-2 RNA (RT-PCR) 02/17/25 02/17/25 02/18/25 21:17 22:15 00:15 WBC RBC Hgb Hct MCV MCH MCHC RDW Plt Count MPV Immature Gran % (Auto) Neut % (Auto) Lymph % (Auto) [place] % (Auto) Eos % (Auto) Baso % (Auto) Lymph # (Auto) [place] # (Auto) Eos # (Auto) Baso # (Auto) Abs Immat Gran (auto) Absolute Neuts (auto) Absolute Nucleated RBC Band Neutrophils % Nucleated RBC % Platelet Estimate Rishi Cells Schistocytes Puncture Site Right brachial ABG pH 7.256 L* ABG pCO2 27.1 L ABG pO2 155.4 H ABG PO2/FiO2 Ratio 1.55 ABG HCO3 11.8 L ABG O2 Saturation 98.8 ABG O2 Content 18.6 ABG Base Excess -13.7 A-a Gradient 530.5 Oxyhemoglobin 98.2 Carboxyhemoglobin Methemoglobin Reduced Hemoglobin Total Hemoglobin 13.3 O2 Delivery Device Ventilator O2 Liters/Min Not Reportable Minute Volume Not Reportable Vent Rate 18 Vent Mode Cmv FiO2 100 Tidal Volume 450 PEEP 8 Peak Inspir Pressure Not Reportable Pressure Support Not Reportable Sodium Potassium Chloride Carbon Dioxide Anion Gap BUN Creatinine Estim Creat Clear Calc Estimated GFR Glucose POC Capillary Glucose 160 H Lactic Acid Calcium Phosphorus Magnesium Total Bilirubin AST ALT Alkaline Phosphatase Total Protein Albumin Nasal MRSA (PCR) Detected A* Influenza A (RT-PCR) Influenza B (RT-PCR) RSV (RT-PCR) SARS-CoV-2 RNA (RT-PCR) 02/18/25 02/18/25 02/18/25 03:48 04:57 07:25 WBC 3.8 L RBC 4.73 Hgb 12.4 L Hct 39.0 L MCV 82.5 MCH 26.2 MCHC 31.8 L RDW 15.7 H Plt Count 263 MPV 9.0 Immature Gran % (Auto) 0.3 Neut % (Auto) 87.2 H Lymph % (Auto) 9.4 L [place] % (Auto) 2.6 Eos % (Auto) 0.0 Baso % (Auto) 0.5 Lymph # (Auto) 0.36 L [place] # (Auto) 0.1 Eos # (Auto) 0.0 Baso # (Auto) 0.0 Abs Immat Gran (auto) 0.01 Absolute Neuts (auto) 3.3 Absolute Nucleated RBC 0.000 Band Neutrophils % 0 Nucleated RBC % 0.0 Platelet Estimate Adequate Rishi Cells 1+ Schistocytes None seen Puncture Site Right brachial ABG pH 7.436 ABG pCO2 29.1 L ABG pO2 55.6 L ABG PO2/FiO2 Ratio 0.93 ABG HCO3 19.1 L ABG O2 Saturation 90.4 L ABG O2 Content 15.2 L ABG Base Excess -4.0 A-a Gradient 340.2 Oxyhemoglobin 89.5 L Carboxyhemoglobin 0.3 Methemoglobin 0.0 Reduced Hemoglobin 10.2 H Total Hemoglobin 12.1 O2 Delivery Device Ventilator O2 Liters/Min Not Reportable Minute Volume Not Reportable Vent Rate 22 Vent Mode Cmv FiO2 60 Tidal Volume 450 PEEP 8 Peak Inspir Pressure Not Reportable Pressure Support Not Reportable Sodium 149 H Potassium 2.9 L Chloride 113 H Carbon Dioxide 21 L Anion Gap 15 H BUN 47 H Creatinine 0.83 Estim Creat Clear Calc 60 Estimated GFR > 60 Glucose 153 H POC Capillary Glucose 149 H Lactic Acid Calcium 9.0 Phosphorus 3.1 Magnesium 2.1 Total Bilirubin 0.8 AST 33 ALT 18 Alkaline Phosphatase 101 Total Protein 6.6 Albumin 3.3 L Nasal MRSA (PCR) Influenza A (RT-PCR) Influenza B (RT-PCR) RSV (RT-PCR) SARS-CoV-2 RNA (RT-PCR) 02/18/25 02/18/25 02/18/25 07:49 09:06 10:29 WBC RBC Hgb Hct MCV MCH MCHC RDW Plt Count MPV Immature Gran % (Auto) Neut % (Auto) Lymph % (Auto) [place] % (Auto) Eos % (Auto) Baso % (Auto) Lymph # (Auto) [place] # (Auto) Eos # (Auto) Baso # (Auto) Abs Immat Gran (auto) Absolute Neuts (auto) Absolute Nucleated RBC Band Neutrophils % Nucleated RBC % Platelet Estimate Rishi Cells Schistocytes Puncture Site ABG pH ABG pCO2 ABG pO2 ABG PO2/FiO2 Ratio ABG HCO3 ABG O2 Saturation ABG O2 Content ABG Base Excess A-a Gradient Oxyhemoglobin Carboxyhemoglobin Methemoglobin Reduced Hemoglobin Total Hemoglobin O2 Delivery Device O2 Liters/Min Minute Volume Vent Rate Vent Mode FiO2 Tidal Volume PEEP Peak Inspir Pressure Pressure Support Sodium Potassium Chloride Carbon Dioxide Anion Gap BUN Creatinine Estim Creat Clear Calc Estimated GFR Glucose POC Capillary Glucose Lactic Acid 3.6 H 2.8 H Calcium Phosphorus Magnesium Total Bilirubin AST ALT Alkaline Phosphatase Total Protein Albumin Nasal MRSA (PCR) Influenza A (RT-PCR) Negative Influenza B (RT-PCR) Negative RSV (RT-PCR) Negative SARS-CoV-2 RNA (RT-PCR) Negative 02/18/25 02/18/25 02/18/25 11:30 15:52 16:15 WBC RBC Hgb Hct MCV MCH MCHC RDW Plt Count MPV Immature Gran % (Auto) Neut % (Auto) Lymph % (Auto) [place] % (Auto) Eos % (Auto) Baso % (Auto) Lymph # (Auto) [place] # (Auto) Eos # (Auto) Baso # (Auto) Abs Immat Gran (auto) Absolute Neuts (auto) Absolute Nucleated RBC Band Neutrophils % Nucleated RBC % Platelet Estimate [place] Cells Schistocytes Puncture Site ABG pH ABG pCO2 ABG pO2 ABG PO2/FiO2 Ratio ABG HCO3 ABG O2 Saturation ABG O2 Content ABG Base Excess A-a Gradient Oxyhemoglobin Carboxyhemoglobin Methemoglobin Reduced Hemoglobin Total Hemoglobin O2 Delivery Device O2 Liters/Min Minute Volume Vent Rate Vent Mode FiO2 Tidal Volume PEEP Peak Inspir Pressure Pressure Support Sodium 148 H Potassium 3.1 L Chloride 111 H Carbon Dioxide 22 Anion Gap 15 H BUN 33 H D Creatinine 0.67 L Estim Creat Clear Calc 75 Estimated GFR > 60 Glucose 114 H POC Capillary Glucose 129 H 113 H Lactic Acid 2.4 H Calcium 8.5 Phosphorus Magnesium Total Bilirubin AST ALT Alkaline Phosphatase Total Protein Albumin Nasal MRSA (PCR) Influenza A (RT-PCR) Influenza B (RT-PCR) RSV (RT-PCR) SARS-CoV-2 RNA (RT-PCR)
[2025-02-18] MEDS: KCL 40 MEQ/WATER 100 ML 100 ML 25 ML IVPB (17:30)
[2025-02-18] MEDS: LACTATED RINGERS 1,000 ML 75 ML IV CONT (17:32)
[2025-02-18] MEDS: SENNA/DOCUSATE SODIUM TABLET 1 TAB FEED TUBE (21:11)
[2025-02-18] MEDS: CENTRAL LINE FLUSH 10 ML IV PUSH (21:12)
[2025-02-19] VITALS (83 sets, daily range): BP systolic 85–125; BP diastolic 62–79; PULSE 76–124; RESP 17–26; TEMP 35.9–37.9; O2SAT 96–100
[2025-02-19] MEDS: PHENYLEPHRINE HCL INJ 50 MG in SODIUM CHLORIDE 0.9% IV 245 ML 54 ML IV CONT ×5 (00:56→20:34)
[2025-02-19] MEDS: IPRATROPIUM BR 0.02% INH SOLN 0.5 MG/2.5 ML VIAL INHALATION ×4 (02:19→19:52)
[2025-02-19 03:55] LABS: Hematocrit 29.9 % (42.0-52.0); Hemoglobin 9.6 g/dL (14.0-18.0); Mean Corpuscular HGB Conc 32.1 g/dl (32-36); Mean Corpuscular Hemoglobin 26.1 pg (26-34); Mean Corpuscular Volume 81.3 fl (80-100); Platelet Count Result 249 k/mm3 (150-375); Red Blood Count 3.68 M/mm3 (4.6-6.20); White Blood Count 23.0 K/mm3 (4.5-10.0)
[2025-02-19 04:07] LABS: INR 1.7; Prothrombin Time 20.2 Seconds (11.1-14.7)
[2025-02-19 04:08] LABS: Partial Thromboplastin Time 53.2 Seconds (22.3-36.8)
[2025-02-19 04:10] LABS: Alanine Aminotransferase 294 U/L (6-50); Albumin Level 3.4 g/dL (3.5-5.1); Alkaline Phosphatase 156 U/L (38-126); Anion Gap 17 mmol/L (4-12); Aspartate Amino Transferase 544 U/L (17-59); Bilirubin,Total 1.0 mg/dL (0.2-1.3); Blood Urea Nitrogen 26 mg/dL (9-20); Calcium 8.9 mg/dL (8.4-10.2); Carbon Dioxide 19 mmol/L (22-30); Chloride 115 mmol/L (98-107); Creatine Kinase 99 U/L (55-170); Estimated CRCL calculation 84 ml/min; Estimated Glomerular Filt Rate > 60; Glucose 93 mg/dL (65-110); Lipase 16 U/L (23-300); Magnesium 2.0 mg/dL (1.6-2.3); Potassium 3.0 mmol/L (3.4-5.0); Sodium 151 mmol/L (137-145); Total Protein 6.1 g/dL (6.3-8.2)
[2025-02-19 04:17] LABS: Anisocytosis 1+; Band Neutrophils Percent 9 % (0-6); Burr Cells 1+; Lymphocytes Absolute Manual 1.15 K/mm3 (1.1-4.5); Lymphocytes Percent Manual 5.0 % (18-44); Monocytes Absolute Manual 1.15 K/mm3 (0.1-0.90); Monocytes Percent Manual 5 % (3-9); Neutrophils Absolute Manual 20.70 K/mm3 (1.3-6.7); Neutrophils Percent Manual 81 % (46-73); Ovalocytes 1+; Schistocytes None Seen; Smudge Cells PRESENT; Total Cells Counted 100
[2025-02-19 05:22] LABS: Alveolar/Arterial O2 Gradient 248.4 mmHg; Arterial Blood Gas Ventilator rate 22 /MIN; Carboxyhemoglobin 0.3 % THb (0-2.0); Fractional Inspired Oxygen 50 %; HCO3 ABG 17.7 mEq/l (22.0-26.0); Methemoglobin ABG 0.1 %THb (0-1.5); Oxygen Content ABG 14.1 %vol (16.0-22.0); Oxygen Saturation ABG 93.5 % (95.0-100.0); PCO2 ABG 33.5 mmHg (35.0-45.0); PO2 ABG 70.4 mmHg (80.0-100.0); PO2 FiO2 Ratio Arterial Blood 1.41 %; Reduced Hemoglobin 6.4 %THb (0-5.0); Site Drawn RIGHT BRACHIAL
[2025-02-19 05:23] LABS: Arterial Blood Gas Tidal Volume 450 ml
[2025-02-19] MEDS: CEFEPIME 2 GM in SODIUM CHLORIDE 0.9% IV 50 ML 100 ML IVPB ×2 (06:13→17:14)
[2025-02-19] MEDS: CENTRAL LINE FLUSH 10 ML IV PUSH ×3 (06:14→21:10)
[2025-02-19] MEDS: LACTATED RINGERS 1,000 ML 75 ML IV CONT ×2 (07:08→21:06)
[2025-02-19] MEDS: THIAMINE HCL 200 MG/2 ML VIAL 100 MG IV PUSH (08:29)
[2025-02-19] MEDS: PANTOPRAZOLE SODIUM IV 40 MG VIAL IV PUSH ×2 (08:29→21:07)
[2025-02-19] MEDS: MINERAL OIL/WHITE PETROLATUM OINTMENT 1 APPLIC EACH EYE ×2 (08:29→21:13)
[2025-02-19] MEDS: POTASSIUM/PHOSPHORUS/SODIUM 1.5 GM PACKET 1 PACKET PO (08:30)
[2025-02-19] MEDS: FOLIC ACID 1 MG/0.2 ML INJ IV PUSH (08:30)
[2025-02-19] MEDS: DOXYCYCLINE IV 100 MG in SODIUM CHLORIDE 0.9% IV 100 ML IVPB ×2 (08:30→21:12)
[2025-02-19] MEDS: KCL 40 MEQ/WATER 100 ML 100 ML 25 ML IVPB (08:31)
[2025-02-19] MEDS: BISACODYL 10 MG SUPPOSITORY RECTAL (09:45)
[2025-02-19] MEDS: VANCOMYCIN HCL 1,000 MG in SODIUM CHLORIDE 0.9% IV 250 ML 250 MG IVPB ×2 (09:54→21:35)
[2025-02-19 10:19] LABS: Hepatitis B Surface Antigen Negative (Negative)
[2025-02-19 10:25] LABS: HAV RESULT Negative (Negative); Hepatitis B Core IgM Result Negative (Negative)
[2025-02-19] MEDS: FENTANYL 2,500MCG/NS250ML(*CRX 2,500 MCG/250 ML BAG 7.5 MCG IV CONT (11:02)
[2025-02-19] MEDS: MIDAZOLAM 100MG/NS 100ML(*CRX) 100 MG/100 ML BAG IV CONT (11:04)
--- NOTE | 2025-02-19 11:37 | WPDINTPN ---
Progress Note: A&P Assessment and Plan (1) Septic shock: Code(s): A41.9 - Sepsis, unspecified organism; R65.21 - Severe sepsis with septic shock Status: Acute Assessment and Plan: 02/17: Patient presented from a snf with altered mental status, shortness of breath. Initially had Leukocytosis. Patient did receive 2 L IV fluid bolus in the ER, was transferred to the intermediate Unit and immediately upon arrival to the IMU, rapid response was called due to hypoxia, tachypnea, tachycardia. Patient was transferred to of the ICU -likely etiology pneumonia and UTI -lactic acid normalized -adequately fluid-resuscitated in the ICU -continue Toan-Synephrine, , maintain MAP > 65 mm Hg or SBP > 100 mmHg to achieve adequate end organ perfusion -OFF Levophed -status post albumin for intravascular volume expansion -02/17: Preliminary blood cultures are negative x2 -02/17: Urine cultures growing Gram-negative bacilli -02/18: Sputum culture pending -continue cefepime, doxycycline and vancomycin (02/17), (2) Acute respiratory failure: Code(s): J96.00 - Acute respiratory failure, unspecified whether with hypoxia or hypercapnia Status: Acute Assessment and Plan: 02/17: Patient was transferred to the ICU from intermediate Unit, 02/17: emergently intubated by ER physician likely cause multifocal pneumonia -patient is on CMV mode of ventilation, peep of 10, 50% FiO2 -chest x-ray and ABGs reviewed, -continue bronchodilators - Xopenex and Atrovent -sedated with fentanyl and Versed, will maintain RASS of 0 to -2 -daily SBT and SAT 02/17: CT chest, abdomen and pelvis IMPRESSION: 1. Moderate sized groundglass opacities scattered throughout both lungs most prominent in the lower lobes. In addition, there are small to moderate sized patchy consolidations scattered throughout both lungs most prominent in the lower lobes. The findings are concerning for multilobar pneumonia. Other etiologies are possible but are felt to be less likely. Recommend follow-up to resolution. 2.There is a Daniels catheter in the bladder. Mild concentric thickening of the calvo of the bladder. Small amount of nondependent air in the bladder which may be due to recent instrumentation or cystitis. 3. Large amount of stool in the rectum. 4. The stomach is distended and filled with air. 5. Small amount of fat stranding with a few locules of air about the posterior aspect of the mid and distal sacrum. No obvious loculated fluid collection identified. No convincing CT evidence for sacral osteomyelitis at this time. (3) Multifocal pneumonia: Code(s): J18.8 - Other pneumonia, unspecified organism Status: Acute Assessment and Plan: Multifocal pneumonia -continue treatment as above -sputum cultures pending (4) Acute UTI: Code(s): N39.0 - Urinary tract infection, site not specified Status: Acute Assessment and Plan: UA was positive for UTI, urine cultures GNR -continue antibiotics as above (5) Diabetes: Code(s): E11.9 - Type 2 diabetes mellitus without complications Status: Acute Assessment and Plan: Accu-Cheks and sliding scale insulin (6) Sacral ulcer: Code(s): L98.429 - Non-pressure chronic ulcer of back with unspecified severity Status: Acute Assessment and Plan: Patient has a sacral ulcer -appreciate wound care evaluation and recommendations 02/17: CT abdomen and pelvis: Small amount of fat stranding with a few locules of air about the posterior aspect of the mid and distal sacrum. No obvious loculated fluid collection identified. No convincing CT evidence for sacral osteomyelitis at this time. (7) Severe protein-calorie malnutrition: Code(s): E43 - Unspecified severe protein-calorie malnutrition Status: Acute Assessment and Plan: According to the niece patient has lost lot of weight since August 2024, initially she stated he unable to feed himself due to his neuropathy and was not being adequately fed at the snf, after this surgery and when he was able to move his arms he stated he was not eating well because he was not hungry. -patient's BMI is 18.3, given his height, age, gender he does classify into severe protein calorie malnutrition -appreciate dietitian evaluation recommendations -will start tube feeds at 10 mL/hour with a goal of 10 mL/hour for today to avoid refeeding syndrome, will gradually increase tube feeds daily, and continue to monitor closely until we reach goal, -will also add thiamine and folic acid (8) Electrolyte imbalance: Code(s): E87.8 - Other disorders of electrolyte and fluid balance, not elsewhere classified Status: Acute Assessment and Plan: Hypernatremia: Will increase tube feed free water flushes to 100 mL /hr Hypokalemia and hypophosphatemia: Will replace potassium and phosphorus Plan DVT prophylaxis: Heparin subQ Stress ulcer prophylaxis: Protonix Nutrition: Maintain tube feeds at 10 mL/hour for now to avoid refeeding syndrome, elevated tube feed residuals, added Reglan Code Status: Full code Critical Care Time Spent: 33 minutes Discussed with patient's niece, Jocelyn who also is one of the decision makers along with patient's sister Sarah. I updated her regarding patient's condition and plan of care. She is aware of the multifocal pneumonia, urinary tract infection. She is aware that he is requiring higher support from the breathing machine at this time, that he is on antibiotics. I answered all her questions Due to a high probability of clinically significant, life threatening deterioration, the patient required my highest level of preparedness to intervene emergently and I personally spent this critical care time directly and personally managing the patient. This critical care time included obtaining a history; examining the patient; pulse oximetry; ordering and review of studies; arranging urgent treatment with development of a management plan; evaluation of patient's response to treatment; frequent reassessment; and discussions with other providers. It was exclusive of separately billable procedures and treating other patients and teaching time. Please see Assessment and Plan section and the rest of the note for further information on patient assessment and treatment This dictation may have been done utilizing a voice recognition system. Attempts have been made to correct errors. However, there may be uncorrected grammatical, spelling, and recognitions errors present. Subjective Date/time seen: 02/19/25 11:37 Interval history: Reason for consult: Septic shock, acute respiratory failure, pneumonia, UTI, lactic acidosis, altered mental status 64yo male with HLD, DM and Asthma who presents with altered mental status and hypoxia from his snf. Rapid response called once patient arrived to IMU for being hypoxic. 02/19/2025: Patient seen and examined the ICU, remains intubated on CMV mode of ventilation peep of 10, 50% FiO2. Sedated with fentanyl and Versed infusion, patient does not open his eyes or follow simple commands. Urine output has been adequate, patient is afebrile. Remains on Toan-Synephrine at 180 mcg/min. Off Levophed. Review of Systems Review of Systems: ROS unobtainable: Yes unobtainable due to endotracheal tube, unobtainable due to medical condition and unobtainable due to mental status Exam Narrative: General: Her intubated and sedated, in no acute distress HEENT:? Pupils equal and reactive, sclera is clear Neck:? Supple Respiratory:? Coarse breath sounds bilaterally, decreased at bases, no wheezing, adequate air entry Cardiac:? S1-S2 is normal, sinus tachycardia Abdomen:? Scaphoid abdomen, soft, nontender, hypoactive bowel sounds, patient cachectic and malnourished Extremities:? No edema, decreased pedal pulses but dopplerable Neuro:? Patient is intubated, sedated, does not open his eyes or follow simple commands, withdraws to pain Skin:? old healing ulcers on the foot bilateral Psych:? Unable to assess at this time Objective Data Vital Signs Vital Signs: Vital Signs - 24 hr 02/18/25 12:00 02/18/25 12:00 02/18/25 12:00 Temperature Pulse Rate 118 H 118 H 118 H Respiratory Rate 24 H Blood Pressure 109/75 109/75 109/75 Pulse Oximetry 97 Oxygen Delivery Fraction of Inspired Oxygen 02/18/25 12:00 02/18/25 12:00 02/18/25 12:00 Temperature Pulse Rate 118 H 118 H 118 H Respiratory Rate 25 H 25 H 25 H Blood Pressure Pulse Oximetry 97 Oxygen Delivery Mechanical Ventilation Fraction of Inspired Oxygen 60 02/18/25 12:00 02/18/25 12:00 02/18/25 12:15 Temperature Pulse Rate 118 H 118 H Respiratory Rate Blood Pressure 107/74 Pulse Oximetry Oxygen Delivery Fraction of Inspired Oxygen 60 02/18/25 12:40 02/18/25 13:00 02/18/25 13:57 Temperature 100.6 F H Pulse Rate 116 H 118 H Respiratory Rate 25 H 24 H Blood Pressure 104/75 Pulse Oximetry 96 Oxygen Delivery Fraction of Inspired Oxygen 02/18/25 14:00 02/18/25 14:00 02/18/25 14:00 Temperature 101.1 F H Pulse Rate 118 H 118 H 118 H Respiratory Rate 23 H Blood Pressure 106/71 106/71 106/71 Pulse Oximetry 98 Oxygen Delivery Fraction of Inspired Oxygen 02/18/25 14:00 02/18/25 14:00 02/18/25 14:00 Temperature Pulse Rate 118 H 118 H 118 H Respiratory Rate 24 H 24 H Blood Pressure Pulse Oximetry Oxygen Delivery Fraction of Inspired Oxygen 02/18/25 14:05 02/18/25 14:05 02/18/25 14:05 Temperature Pulse Rate 121 H 113 H Respiratory Rate 22 H Blood Pressure Pulse Oximetry 97 97 Oxygen Delivery Mechanical Ventilation Mechanical Ventilation Fraction of Inspired Oxygen 50 50 50 02/18/25 14:10 02/18/25 14:15 02/18/25 14:30 Temperature Pulse Rate 120 H 120 H 122 H Respiratory Rate 25 H Blood Pressure 102/69 102/71 Pulse Oximetry Oxygen Delivery Fraction of Inspired Oxygen 02/18/25 14:31 02/18/25 14:45 02/18/25 14:57 Temperature 101.1 F H Pulse Rate 121 H 119 H Respiratory Rate Blood Pressure 98/67 L 98/67 L Pulse Oximetry Oxygen Delivery Fraction of Inspired Oxygen 02/18/25 14:57 02/18/25 15:00 02/18/25 15:00 Temperature 101.9 F H Pulse Rate 119 H 119 H 119 H Respiratory Rate 23 H Blood Pressure 98/67 L 100/69 100/69 Pulse Oximetry 97 Oxygen Delivery Fraction of Inspired Oxygen 02/18/25 15:15 02/18/25 15:30 02/18/25 15:31 Temperature 100.9 F H Pulse Rate 119 H 118 H Respiratory Rate Blood Pressure 88/59 L 105/65 Pulse Oximetry Oxygen Delivery Fraction of Inspired Oxygen 02/18/25 15:46 02/18/25 16:00 02/18/25 16:00 Temperature Pulse Rate 116 H 113 H 113 H Respiratory Rate Blood Pressure 100/63 98/61 L 98/61 L Pulse Oximetry Oxygen Delivery Fraction of Inspired Oxygen 02/18/25 16:00 02/18/25 16:00 02/18/25 16:01 Temperature 98.9 F Pulse Rate 112 H 113 H 113 H Respiratory Rate 23 H 22 H Blood Pressure 98/61 L Pulse Oximetry 98 Oxygen Delivery Fraction of Inspired Oxygen 02/18/25 16:01 02/18/25 16:05 02/18/25 16:05 Temperature Pulse Rate 113 H 114 H Respiratory Rate 22 H 22 H Blood Pressure Pulse Oximetry 96 Oxygen Delivery Mechanical Ventilation Fraction of Inspired Oxygen 50 50 02/18/25 16:33 02/18/25 16:33 02/18/25 16:47 Temperature Pulse Rate 112 H 111 H 112 H Respiratory Rate Blood Pressure 94/62 L 101/63 Pulse Oximetry 97 Oxygen Delivery Mechanical Ventilation Fraction of Inspired Oxygen 50 02/18/25 17:00 02/18/25 17:00 02/18/25 18:00 Temperature Pulse Rate 111 H 111 H 109 H Respiratory Rate 22 H Blood Pressure 101/63 101/63 101/66 Pulse Oximetry 97 Oxygen Delivery Fraction of Inspired Oxygen 02/18/25 18:00 02/18/25 18:00 02/18/25 18:00 Temperature Pulse Rate 109 H 109 H 109 H Respiratory Rate 22 H 22 H Blood Pressure 101/66 Pulse Oximetry Oxygen Delivery Fraction of Inspired Oxygen 02/18/25 18:00 02/18/25 18:00 02/18/25 19:00 Temperature 99.8 F H 99.5 F Pulse Rate 109 H 109 H 109 H Respiratory Rate 22 H 22 H Blood Pressure 101/66 98/69 L Pulse Oximetry 97 97 Oxygen Delivery Fraction of Inspired Oxygen 02/18/25 20:00 02/18/25 20:00 02/18/25 20:00 Temperature 98.3 F Pulse Rate 111 H 111 H 111 H Respiratory Rate 22 H Blood Pressure 107/75 107/75 107/75 Pulse Oximetry 97 Oxygen Delivery Fraction of Inspired Oxygen 02/18/25 20:00 02/18/25 20:00 02/18/25 20:00 Temperature Pulse Rate 111 H 111 H Respiratory Rate 22 H Blood Pressure Pulse Oximetry 97 Oxygen Delivery Mechanical Ventilation Fraction of Inspired Oxygen 50 50 02/18/25 20:00 02/18/25 20:00 02/18/25 20:00 Temperature Pulse Rate 111 H 111 H 111 H Respiratory Rate 22 H 22 H Blood Pressure 107/75 Pulse Oximetry Oxygen Delivery Fraction of Inspired Oxygen 02/18/25 20:06 02/18/25 20:32 02/18/25 20:40 Temperature Pulse Rate 111 H 110 H 110 H Respiratory Rate 22 H 22 H Blood Pressure Pulse Oximetry 97 Oxygen Delivery Mechanical Ventilation Fraction of Inspired Oxygen 50 02/18/25 21:00 02/18/25 22:00 02/18/25 22:00 Temperature 98.7 F Pulse Rate 115 H 117 H 117 H Respiratory Rate 22 H 22 H Blood Pressure 100/70 113/70 Pulse Oximetry 98 98 Oxygen Delivery Fraction of Inspired Oxygen 02/18/25 22:00 02/18/25 22:00 02/18/25 22:00 Temperature Pulse Rate 117 H 117 H 117 H Respiratory Rate 22 H Blood Pressure 113/70 113/70 Pulse Oximetry Oxygen Delivery Fraction of Inspired Oxygen 02/18/25 22:00 02/18/25 23:00 02/18/25 23:12 Temperature 99.4 F Pulse Rate 117 H 113 H 113 H Respiratory Rate 22 H 22 H Blood Pressure 112/75 Pulse Oximetry 98 98 Oxygen Delivery Mechanical Ventilation Fraction of Inspired Oxygen 50 02/19/25 00:00 02/19/25 00:00 02/19/25 00:00 Temperature Pulse Rate 113 H 113 H 113 H Respiratory Rate 22 H Blood Pressure 113/69 113/69 Pulse Oximetry Oxygen Delivery Fraction of Inspired Oxygen 02/19/25 00:00 02/19/25 00:00 02/19/25 00:00 Temperature 99.4 F Pulse Rate 113 H 113 H Respiratory Rate 22 H 22 H Blood Pressure 113/69 Pulse Oximetry 97 Oxygen Delivery Fraction of Inspired Oxygen 50 02/19/25 00:00 02/19/25 00:00 02/19/25 00:15 Temperature Pulse Rate 113 H 114 H 115 H Respiratory Rate 22 H Blood Pressure 125/79 Pulse Oximetry 97 Oxygen Delivery Mechanical Ventilation Fraction of Inspired Oxygen 50 02/19/25 00:30 02/19/25 00:56 02/19/25 00:56 Temperature Pulse Rate 115 H 113 H 113 H Respiratory Rate Blood Pressure 113/72 105/71 105/71 Pulse Oximetry Oxygen Delivery Fraction of Inspired Oxygen 02/19/25 01:00 02/19/25 02:00 02/19/25 02:00 Temperature 99.4 F Pulse Rate 113 H 114 H 114 H Respiratory Rate 22 H 22 H Blood Pressure 101/69 105/69 Pulse Oximetry 96 Oxygen Delivery Fraction of Inspired Oxygen 02/19/25 02:00 02/19/25 02:00 02/19/25 02:00 Temperature Pulse Rate 114 H 114 H 114 H Respiratory Rate 22 H Blood Pressure 105/69 Pulse Oximetry Oxygen Delivery Fraction of Inspired Oxygen 02/19/25 02:00 02/19/25 02:20 02/19/25 02:20 Temperature 99.1 F Pulse Rate 114 H 116 H 116 H Respiratory Rate 22 H 23 H Blood Pressure 105/69 Pulse Oximetry 96 97 Oxygen Delivery Mechanical Ventilation Fraction of Inspired Oxygen 50 02/19/25 02:35 02/19/25 03:00 02/19/25 04:00 Temperature Pulse Rate 114 H 118 H 119 H Respiratory Rate 22 H 22 H Blood Pressure 106/68 116/72 Pulse Oximetry 97 Oxygen Delivery Fraction of Inspired Oxygen 02/19/25 04:00 02/19/25 04:00 02/19/25 04:00 Temperature Pulse Rate 119 H 119 H 114 H Respiratory Rate 22 H 22 H Blood Pressure 116/72 Pulse Oximetry Oxygen Delivery Fraction of Inspired Oxygen 02/19/25 04:00 02/19/25 04:00 02/19/25 04:00 Temperature 99.0 F Pulse Rate 119 H 118 H Respiratory Rate 22 H Blood Pressure 116/72 Pulse Oximetry 98 Oxygen Delivery Fraction of Inspired Oxygen 50 02/19/25 04:00 02/19/25 05:00 02/19/25 05:05 Temperature Pulse Rate 118 H 112 H 111 H Respiratory Rate 22 H 22 H Blood Pressure 102/66 Pulse Oximetry 97 97 96 Oxygen Delivery Mechanical Ventilation Mechanical Ventilation Fraction of Inspired Oxygen 50 50 02/19/25 06:00 02/19/25 06:00 02/19/25 06:00 Temperature Pulse Rate 111 H 111 H 111 H Respiratory Rate 22 H Blood Pressure 107/68 107/68 Pulse Oximetry Oxygen Delivery Fraction of Inspired Oxygen 02/19/25 06:00 02/19/25 06:00 02/19/25 06:00 Temperature 99 F Pulse Rate 111 H 111 H 111 H Respiratory Rate 22 H 22 H Blood Pressure 107/68 107/68 Pulse Oximetry 97 Oxygen Delivery Fraction of Inspired Oxygen 02/19/25 06:00 02/19/25 07:00 02/19/25 08:00 Temperature Pulse Rate 111 H 109 H Respiratory Rate 23 H Blood Pressure 106/66 Pulse Oximetry 97 Oxygen Delivery Fraction of Inspired Oxygen 50 02/19/25 08:00 02/19/25 08:00 02/19/25 08:00 Temperature 98.9 F Pulse Rate 111 H 111 H 111 H Respiratory Rate 23 H 23 H Blood Pressure 119/73 119/73 Pulse Oximetry 97 Oxygen Delivery Fraction of Inspired Oxygen 02/19/25 08:00 02/19/25 08:00 02/19/25 08:00 Temperature Pulse Rate 111 H 111 H Respiratory Rate 23 H Blood Pressure 119/73 Pulse Oximetry 97 Oxygen Delivery Mechanical Ventilation Fraction of Inspired Oxygen 50 02/19/25 08:00 02/19/25 08:03 02/19/25 08:07 Temperature Pulse Rate 114 H 114 H 113 H Respiratory Rate 24 H Blood Pressure Pulse Oximetry 97 Oxygen Delivery Mechanical Ventilation Fraction of Inspired Oxygen 50 02/19/25 08:12 02/19/25 08:45 02/19/25 09:00 Temperature Pulse Rate 113 H 110 H 107 H Respiratory Rate 23 H Blood Pressure 112/68 102/65 Pulse Oximetry Oxygen Delivery Fraction of Inspired Oxygen 02/19/25 09:00 02/19/25 10:00 02/19/25 10:00 Temperature 96.7 F L 98.4 F Pulse Rate 76 109 H 109 H Respiratory Rate 24 H 22 H Blood Pressure 109/66 97/62 L 97/62 L Pulse Oximetry 100 96 Oxygen Delivery Fraction of Inspired Oxygen 02/19/25 10:00 02/19/25 10:00 02/19/25 10:00 Temperature Pulse Rate 109 H 111 H 109 H Respiratory Rate 22 H Blood Pressure 97/62 L Pulse Oximetry Oxygen Delivery Fraction of Inspired Oxygen 02/19/25 10:56 02/19/25 10:58 02/19/25 11:00 Temperature Pulse Rate 106 H 106 H 106 H Respiratory Rate Blood Pressure 94/69 L 94/69 L Pulse Oximetry 97 Oxygen Delivery Mechanical Ventilation Fraction of Inspired Oxygen 50 02/19/25 11:00 02/19/25 11:02 02/19/25 11:02 Temperature Pulse Rate 106 H 106 H 106 H Respiratory Rate 22 H 22 H 22 H Blood Pressure 85/66 L Pulse Oximetry 98 Oxygen Delivery Fraction of Inspired Oxygen 02/19/25 11:04 02/19/25 11:04 02/19/25 11:15 Temperature Pulse Rate 106 H 106 H 108 H Respiratory Rate 22 H 22 H Blood Pressure 100/69 Pulse Oximetry Oxygen Delivery Fraction of Inspired Oxygen Intake/Output Intake/Output: Intake & Output 02/16/25 02/17/25 02/18/25 02/19/25 23:59 23:59 23:59 23:59 Intake Total 2839.6 7304.2 2441.1 Output Total 500 1750 800 Balance 2339.6 5554.2 1641.1 Meds/Results Medications: Active Medications Generic Name Dose Route Start Last Admin Trade Name Freq PRN Reason Stop Dose Admin Acetaminophen 650 mg 02/17/25 20:19 02/18/25 14:31 Acetaminophen 325 Mg Tablet FEED TUBE 650 mg Q4H PRN Administration Mild Pain (1-3) or Fever Bisacodyl 10 mg 02/17/25 17:48 Bisacodyl 10 Mg Suppository RECTAL ONCE PRN Constipation Dextrose 12.5 gm 02/17/25 21:35 Dextrose 50% 25 Gm/50 Ml Syringe IV PUSH PRN PRN Hypoglycemia Protocol Folic Acid 1 mg 02/19/25 09:00 02/19/25 08:30 Folic Acid 1 Mg/0.2 Ml Inj IV PUSH 1 mg QAM KENNETH Administration Glucagon 1 mg 02/17/25 21:35 Glucagon For Inj 1 Mg Vial IM PRN PRN Hypoglycemia Protocol Glucose 15 gm 02/17/25 21:35 Glucose Oral Gel 15 Gm Of Glucse In 37.5 Gm Tube PO PRN PRN Hypoglycemia Protocol Heparin Sodium (Porcine) 5,000 units 02/18/25 14:00 02/19/25 06:13 Heparin Sodium 5,000 Units/Ml Vial SUB-Q 5,000 units Q8HR KENNETH Administration Cefepime HCl 2 gm/ Sodium 50 mls @ 100 mls/hr 02/18/25 06:00 02/19/25 06:45 Chloride IVPB Infused Q12H KENNETH Infusion Fentanyl Citrate 2,500 mcg in 250 mls @ 7.5 mls/hr 02/17/25 20:10 02/19/25 11:02 Fentanyl 2,500 Mcg/Ns 250 Ml IV CONT 75 mcg/hr .[id number] KENNETH 7.5 mls/hr Protocol Administration 75 MCG/HR Midazolam HCl 100 mg in 100 mls @ 3 mls/hr 02/17/25 20:10 02/19/25 11:04 Versed 100 Mg/Ns 100 Ml IV CONT 2 mg/hr .[id number] KENNETH 2 mls/hr Protocol Administration 3 MG/HR Dextrose 1,000 mls @ 100 mls/hr 02/17/25 21:35 Dextrose 5% 1,000 Ml IVPB PRN PRN Hypoglycemia Protocol Phenylephrine HCl 50 mg/ 250 mls @ 54 mls/hr 02/18/25 05:10 02/19/25 11:15 Sodium Chloride IV CONT 180 mcg/min .[id number] KENNETH 54 mls/hr Protocol Titration 180 MCG/MIN Doxycycline Hyclate 100 mg/ 100 mls @ 100 mls/hr 02/18/25 08:00 02/19/25 09:30 Sodium Chloride IVPB Infused Q12H KENNETH Infusion Norepinephrine Bitartrate 8 mg in 250 mls @ 0 mls/hr 02/18/25 08:30 02/19/25 10:00 Levophed 8 Mg/D5w 250 Ml IV CONT 0 mcg/min .Q0M KENNETH 0 mls/hr Protocol Titration Lactated Ringer's 1,000 mls @ 75 mls/hr 02/18/25 16:45 02/19/25 07:08 Lr - Lactated Ringers Iv IV CONT 75 mls/hr .[id number] KENNETH Administration Potassium Phosphate 20 mmol/ 256.6667 mls @ 64.167 mls/hr 02/19/25 12:00 Sodium Chloride IVPB 02/19/25 15:59 ONCE ONE Vancomycin HCl 1,000 mg/ 250 mls @ 250 mls/hr 02/19/25 10:00 02/19/25 10:55 Sodium Chloride IVPB Infused Q12H KENNETH Infusion Insulin Aspart 3 - 6 units 02/18/25 00:00 02/19/25 08:30 Insulin Aspart (*Bkc) 100 Units/Ml SUB-Q Not Given Q4HR [facility] Protocol Ipratropium [place] 0.5 mg 02/18/25 09:35 02/19/25 08:01 Ipratropium Br 0.02% Inh Soln 0.5 Mg/2.5 Ml Vial INHALATION 0.5 mg Q6HRT [facility] Administration Levalbuterol HCl 0.63 mg 02/18/25 09:35 02/19/25 08:00 Levalbuterol Neb 1.25 Mg/3 Ml INHALATION 0.63 mg Q6HRT [facility] Administration Metoclopramide HCl 10 mg 02/19/25 12:00 Metoclopramide Hcl Inj 10 Mg/2 Ml Vial IV PUSH Q6HR [facility] Multi-Ingred Cream/Lotion/Oil/Oint 1 applic 02/17/25 21:00 02/19/25 08:29 Mineral Oil/White Petrolatum Ointment EACH EYE 1 applic Q12HR [facility] Administration Pantoprazole Sodium 40 mg 02/18/25 09:00 02/19/25 08:29 Pantoprazole Sodium Iv 40 Mg Vial IV PUSH 40 mg Q12HR [facility]ENNET[facility] Administration Perflutren Lipid Microsphere 0 ml 02/18/25 07:28 Perflutren Lipid Microspheres 1.5 Ml Vial Diluted To 10 Ml Total Volume IV PUSH 02/21/25 07:28 ONCE PRN adequate visualization Protocol Senna/Docusate Sodium 1 tab 02/17/25 21:00 02/18/25 21:11 Senna/Docusate Sodium Tablet FEED TUBE 1 tab HS KENNETH Administration Sodium Chloride 10 ml 02/18/25 22:00 02/19/25 06:14 Central Line Flush IV PUSH 10 ml Q8HR KENNETH Administration Sodium Chloride 20 ml 02/18/25 16:07 Central Line Flush IV PUSH PRN PRN after blood draws Thiamine HCl 100 mg 02/19/25 09:00 02/19/25 08:29 Thiamine Hcl 200 Mg/2 Ml Vial IV PUSH 100 mg QAM KENNETH Administration Radiology Results: ITS Impressions Head CT 02/17/25 16:55 IMPRESSION: 1. No acute intracranial hemorrhage. No mass effect. 2. Probable chronic ischemic white matter change. Chest/Abdomen/Pelvis CT 02/17/25 17:11 IMPRESSION: 1. Moderate sized groundglass opacities scattered throughout both lungs most prominent in the lower lobes. In addition, there are small to moderate sized patchy consolidations scattered throughout both lungs most prominent in the lower lobes. The findings are concerning for multilobar pneumonia. Other etiologies are possible but are felt to be less likely. Recommend follow-up to resolution. 2.There is a Daniels catheter in the bladder. Mild concentric thickening of the calvo of the bladder. Small amount of nondependent air in the bladder which may be due to recent instrumentation or cystitis. 3. Large amount of stool in the rectum. 4. The stomach is distended and filled with air. 5. Small amount of fat stranding with a few locules of air about the posterior aspect of the mid and distal sacrum. No obvious loculated fluid collection identified. No convincing CT evidence for sacral osteomyelitis at this time. Abdomen X-Ray 02/17/25 20:22 IMPRESSION: 1. Endotracheal tube and nasogastric tubes in expected position. 2. Patchy bilateral airspace opacities consistent with multifocal pneumonia. Labs Labs: Laboratory Results - last 24 hr 02/18/25 02/18/25 02/18/25 15:52 16:15 21:27 WBC RBC Hgb Hct MCV MCH MCHC RDW Plt Count MPV Immature Gran % (Auto) Neut % (Auto) Lymph % (Auto) [place] % (Auto) Eos % (Auto) Baso % (Auto) Lymph # (Auto) [place] # (Auto) Eos # (Auto) Baso # (Auto) Abs Immat Gran (auto) Absolute Neuts (auto) Absolute Nucleated RBC Total Counted Neutrophils % (Manual) Band Neutrophils % Lymphocytes % (Manual) Monocytes % (Manual) Nucleated RBC % Abs Neuts (Manual) Abs Lymphs (Manual) Abs Monocytes (Manual) Smudge Cells Platelet Estimate Anisocytosis Ovalocytes Rishi Cells Schistocytes PT INR APTT Puncture Site ABG pH ABG pCO2 ABG pO2 ABG PO2/FiO2 Ratio ABG HCO3 ABG O2 Saturation ABG O2 Content ABG Base Excess A-a Gradient Oxyhemoglobin Carboxyhemoglobin Methemoglobin Reduced Hemoglobin Total Hemoglobin O2 Delivery Device O2 Liters/Min Minute Volume Vent Rate Vent Mode FiO2 Tidal Volume PEEP Peak Inspir Pressure Pressure Support Sodium 148 H Potassium 3.1 L Chloride 111 H Carbon Dioxide 22 Anion Gap 15 H BUN 33 H D Creatinine 0.67 L Estim Creat Clear Calc 75 Estimated GFR > 60 Glucose 114 H POC Capillary Glucose 113 H 102 Lactic Acid 2.4 H Calcium 8.5 Phosphorus Magnesium Total Bilirubin AST ALT Alkaline Phosphatase Total Creatine Kinase Total Protein Albumin Lipase Random Vancomycin Hepatitis A IgM Ab Hep Bs Antigen Hep B Core IgM Ab Hepatitis C Ab Screen 02/19/25 02/19/25 02/19/25 00:10 03:50 05:11 WBC 23.0 H RBC 3.68 L Hgb 9.6 L Hct 29.9 L MCV 81.3 MCH 26.1 MCHC 32.1 RDW 16.3 H Plt Count 249 MPV 9.1 Immature Gran % (Auto) Not Reportable Neut % (Auto) Not Reportable Lymph % (Auto) Not Reportable [place] % (Auto) Not Reportable Eos % (Auto) Not Reportable Baso % (Auto) Not Reportable Lymph # (Auto) Not Reportable [place] # (Auto) Not Reportable Eos # (Auto) Not Reportable Baso # (Auto) Not Reportable Abs Immat Gran (auto) Not Reportable Absolute Neuts (auto) Not Reportable Absolute Nucleated RBC Not Reportable Total Counted 100 Neutrophils % (Manual) 81 H Band Neutrophils % 9 H Lymphocytes % (Manual) 5.0 L Monocytes % (Manual) 5 Nucleated RBC % Not Reportable Abs Neuts (Manual) 20.70 H Abs Lymphs (Manual) 1.15 Abs Monocytes (Manual) 1.15 H Smudge Cells Present Platelet Estimate Adequate Anisocytosis 1+ Ovalocytes 1+ Rishi Cells 1+ Schistocytes None seen PT 20.2 H D INR 1.7 APTT 53.2 H Puncture Site Right brachial ABG pH 7.341 L ABG pCO2 33.5 L ABG pO2 70.4 L ABG PO2/FiO2 Ratio 1.41 ABG HCO3 17.7 L ABG O2 Saturation 93.5 L ABG O2 Content 14.1 L ABG Base Excess -7.2 A-a Gradient 248.4 Oxyhemoglobin 93.2 Carboxyhemoglobin 0.3 Methemoglobin 0.1 Reduced Hemoglobin 6.4 H Total Hemoglobin 10.7 L O2 Delivery Device Ventilator O2 Liters/Min Not Reportable Minute Volume Not Reportable Vent Rate 22 Vent Mode Cmv FiO2 50 Tidal Volume 450 PEEP 10 Peak Inspir Pressure Not Reportable Pressure Support Not Reportable Sodium 151 H Potassium 3.0 L Chloride 115 H Carbon Dioxide 19 L Anion Gap 17 H BUN 26 H Creatinine 0.59 L Estim Creat Clear Calc 84 Estimated GFR > 60 Glucose 93 POC Capillary Glucose 91 Lactic Acid 2.0 Calcium 8.9 Phosphorus 1.3 L Magnesium 2.0 Total Bilirubin 1.0 AST 544 H ALT 294 H Alkaline Phosphatase 156 H Total Creatine Kinase 99 Total Protein 6.1 L Albumin 3.4 L Lipase 16 L Random Vancomycin Hepatitis A IgM Ab Hep Bs Antigen Hep B Core IgM Ab Hepatitis C Ab Screen 02/19/25 02/19/25 07:51 07:56 WBC RBC Hgb Hct MCV MCH MCHC RDW Plt Count MPV Immature Gran % (Auto) Neut % (Auto) Lymph % (Auto) [place] % (Auto) Eos % (Auto) Baso % (Auto) Lymph # (Auto) [place] # (Auto) Eos # (Auto) Baso # (Auto) Abs Immat Gran (auto) Absolute Neuts (auto) Absolute Nucleated RBC Total Counted Neutrophils % (Manual) Band Neutrophils % Lymphocytes % (Manual) Monocytes % (Manual) Nucleated RBC % Abs Neuts (Manual) Abs Lymphs (Manual) Abs Monocytes (Manual) Smudge Cells Platelet Estimate Anisocytosis Ovalocytes Rishi Cells Schistocytes PT INR APTT Puncture Site ABG pH ABG pCO2 ABG pO2 ABG PO2/FiO2 Ratio ABG HCO3 ABG O2 Saturation ABG O2 Content ABG Base Excess A-a Gradient Oxyhemoglobin Carboxyhemoglobin Methemoglobin Reduced Hemoglobin Total Hemoglobin O2 Delivery Device O2 Liters/Min Minute Volume Vent Rate Vent Mode FiO2 Tidal Volume PEEP Peak Inspir Pressure Pressure Support Sodium Potassium Chloride Carbon Dioxide Anion Gap BUN Creatinine Estim Creat Clear Calc Estimated GFR Glucose POC Capillary Glucose 80 Lactic Acid Calcium Phosphorus Magnesium Total Bilirubin AST ALT Alkaline Phosphatase Total Creatine Kinase Total Protein Albumin Lipase Random Vancomycin < 5.0 L Hepatitis A IgM Ab Negative Hep Bs Antigen Negative Hep B Core IgM Ab Negative Hepatitis C Ab Screen Negative Quality VTE Prophylaxis VTE prophylaxis: pharmacologic ordered
[2025-02-19] MEDS: METOCLOPRAMIDE HCL INJ 10 MG/2 ML VIAL IV PUSH ×2 (11:40→17:14)
[2025-02-19] MEDS: POTASSIUM PHOS,M-BASIC-D-BASIC 20 MMOL in SODIUM CHLORIDE 0.9% IV 250 ML 64.17 MMOL IVPB (11:40)
--- NOTE | 2025-02-19 12:12 | PCFNICU ---
ICU Rounding Note: Pt current nutrition is Vital 1.2 @ 10ml/hr. Nutrition recommendation: add reglan, continue at 10ml/hr today, will possibly increase rate tomorrow depending on tolerance Last recorded weight is 60.1 kg. Bowel Motility: No BM recorded at this time Labs Reviewed: Hgb:9.6, HCt:29.9, Alb:3.4, NA:151, K:3.0, BUN:26, Cr:0.59, Phos:1.3 Meds Noted: thiamin, folic acid, reglan, fentanyl, versed, vanc Skin: pressure ulcer to coccyx Additional Notes: Pt started on tube feedings: Vital 1.2 @ 10ml/hr, noted residuals of 170ml this AM. Reglan added and tube feedings to continue at 10ml/hr at this time. May advance as tolerated tomorrow. Following daily in ICU rounds. Will monitor weight, labs, skin, diet orders, meds every Friday and Friday. .
--- NOTE | 2025-02-19 14:48 | P.PNIM_ITS ---
Progress Note: A&P Assessment and Plan (1) Septic shock: Code(s): A41.9 - Sepsis, unspecified organism; R65.21 - Severe sepsis with septic shock Status: Acute Assessment and Plan: 02/17: Patient presented from a detention with AMS and SOB. WBC 17K. Bicarb 7 (AG 28). UA consistent with UTI CT Ch/A/P showing ground-glass opacities throughout both lungs, thickening of bladder wall, large stool ball, distended stomach, and small amount of fat stranding with a few locules of air in the mid and distal sacrum. Sepsis with lactic acidosis, leukocytosis, resp failure, tachycardia, fever felt related to pneumonia and UTI +/- sacral decub Received 2L IV fluid bolus in ER and started on cefepime and vancomycin (02/17); Doxy added 02/18 Admitted to IMU but he decompensated and rapid response was called Patient intubated 02/17 and started on Phenylephrine for hypoxia and hypotension. BCx 02/17 - NGTD UCx 02/17 - growing GNB Sputum Cx 02/18 - pending. Central line placed and Levophed added 02/18 but weaned off today. WBC higher at 23K wiht 9% bands, Remains on phenylephrine; wean off to keep MAP>65 (2) Acute respiratory failure: Code(s): J96.00 - Acute respiratory failure, unspecified whether with hypoxia or hypercapnia Status: Acute Assessment and Plan: Patient was transferred to the ICU from IMU for acute respiratory failure and emergently intubated (02/17) Probably related to multifocal pneumonia CXR today showing multifocal airspace disease. ABG 7.34/33/70 on MV Senior Staff Consultant consulted and appreciate their input Vent management per home appliance tech (3) Multifocal pneumonia: Code(s): J18.8 - Other pneumonia, unspecified organism Status: Acute Assessment and Plan: Multifocal pneumonia by imaging. Abx as above. Follow-up on culture results (4) Acute UTI: Code(s): N39.0 - Urinary tract infection, site not specified Status: Acute Assessment and Plan: UA was positive for UTI Complicated UTI with SP catheter Continue Abx as above (5) Diabetes: Code(s): E11.9 - Type 2 diabetes mellitus without complications Status: Acute Assessment and Plan: The patient's blood glucose was reviewed on 02/19 Glucose remains well controlled. Continue AccuCheks covering with sliding scale. Hypoglycemia protocol available as needed. Continue to monitor (6) Sacral ulcer: Code(s): L98.429 - Non-pressure chronic ulcer of back with unspecified severity Status: Acute Assessment and Plan: Patient has a sacral ulcer noted present on admission. CT Abd/Pelvis showing small amount of fat stranding with a few locules of air about the posterior aspect of the mid and distal sacrum. No obvious loculated fluid collection identified. No convincing CT evidence for sacral osteomyelitis at this time. Wound Care to evaluate Plan DVT prophylaxis: Heparin subQ Stress ulcer prophylaxis: Protonix Nutrition: NPO Code Status: Full code Subjective Date/time seen: 02/19/25 14:48 Interval history: 64yo male with HLD, DM and Asthma who presents with altered mental status and hypoxia from his detention. Rapid response called once patient arrived to floor for being hypoxic. Patint is intubated and sedated. Tolerating low volume TF. Weaned off Levophed around midnight. Review of Systems Review of Systems: ROS unobtainable: Yes unobtainable due to endotracheal tube Exam Narrative: Tm 101.9 98.8 117/79 116 22 97% MV Gen - intubated and sedated HEENT - NGT right nares. ETT secured. Neck - TLC right IJ Chest - coarse BS anteriorly CV - tachycardic. Tele showing sinus tachycardia Abd - Soft, scaphoid. Suprapubic site clean and dry. SP catheter secured draining clear yellow urine Ext - No pedal edema. cap refill 2-3 sec Neuro - sedated Psych - unable to assess Skin - Warm and dry Objective Data Vital Signs Vital Signs: Vital Signs - 24 hr 02/18/25 14:57 02/18/25 14:57 02/18/25 15:00 Temperature Pulse Rate 119 H 119 H 119 H Respiratory Rate Blood Pressure 98/67 L 98/67 L 100/69 Pulse Oximetry Oxygen Delivery Fraction of Inspired Oxygen 02/18/25 15:00 02/18/25 15:15 02/18/25 15:30 Temperature 101.9 F H Pulse Rate 119 H 119 H 118 H Respiratory Rate 23 H Blood Pressure 100/69 88/59 L 105/65 Pulse Oximetry 97 Oxygen Delivery Fraction of Inspired Oxygen 02/18/25 15:31 02/18/25 15:46 02/18/25 16:00 Temperature 100.9 F H Pulse Rate 116 H 113 H Respiratory Rate Blood Pressure 100/63 98/61 L Pulse Oximetry Oxygen Delivery Fraction of Inspired Oxygen 02/18/25 16:00 02/18/25 16:00 02/18/25 16:00 Temperature 98.9 F Pulse Rate 113 H 112 H 113 H Respiratory Rate 23 H Blood Pressure 98/61 L 98/61 L Pulse Oximetry 98 Oxygen Delivery Fraction of Inspired Oxygen 02/18/25 16:01 02/18/25 16:01 02/18/25 16:05 Temperature Pulse Rate 113 H 113 H 114 H Respiratory Rate 22 H 22 H 22 H Blood Pressure Pulse Oximetry 96 Oxygen Delivery Mechanical Ventilation Fraction of Inspired Oxygen 50 02/18/25 16:05 02/18/25 16:33 02/18/25 16:33 Temperature Pulse Rate 112 H 111 H Respiratory Rate Blood Pressure 94/62 L Pulse Oximetry 97 Oxygen Delivery Mechanical Ventilation Fraction of Inspired Oxygen 50 50 02/18/25 16:47 02/18/25 17:00 02/18/25 17:00 Temperature Pulse Rate 112 H 111 H 111 H Respiratory Rate 22 H Blood Pressure 101/63 101/63 101/63 Pulse Oximetry 97 Oxygen Delivery Fraction of Inspired Oxygen 02/18/25 18:00 02/18/25 18:00 02/18/25 18:00 Temperature Pulse Rate 109 H 109 H 109 H Respiratory Rate 22 H Blood Pressure 101/66 101/66 Pulse Oximetry Oxygen Delivery Fraction of Inspired Oxygen 02/18/25 18:00 02/18/25 18:00 02/18/25 18:00 Temperature 99.8 F H Pulse Rate 109 H 109 H 109 H Respiratory Rate 22 H 22 H Blood Pressure 101/66 Pulse Oximetry 97 Oxygen Delivery Fraction of Inspired Oxygen 02/18/25 19:00 02/18/25 20:00 02/18/25 20:00 Temperature 99.5 F Pulse Rate 109 H 111 H 111 H Respiratory Rate 22 H Blood Pressure 98/69 L 107/75 107/75 Pulse Oximetry 97 Oxygen Delivery Fraction of Inspired Oxygen 02/18/25 20:00 02/18/25 20:00 02/18/25 20:00 Temperature 98.3 F Pulse Rate 111 H 111 H Respiratory Rate 22 H Blood Pressure 107/75 Pulse Oximetry 97 Oxygen Delivery Fraction of Inspired Oxygen 50 02/18/25 20:00 02/18/25 20:00 02/18/25 20:00 Temperature Pulse Rate 111 H 111 H 111 H Respiratory Rate 22 H 22 H Blood Pressure 107/75 Pulse Oximetry 97 Oxygen Delivery Mechanical Ventilation Fraction of Inspired Oxygen 50 02/18/25 20:00 02/18/25 20:06 02/18/25 20:32 Temperature Pulse Rate 111 H 111 H 110 H Respiratory Rate 22 H 22 H Blood Pressure Pulse Oximetry 97 Oxygen Delivery Mechanical Ventilation Fraction of Inspired Oxygen 50 02/18/25 20:40 02/18/25 21:00 02/18/25 22:00 Temperature 98.7 F Pulse Rate 110 H 115 H 117 H Respiratory Rate 22 H 22 H 22 H Blood Pressure 100/70 113/70 Pulse Oximetry 98 98 Oxygen Delivery Fraction of Inspired Oxygen 02/18/25 22:00 02/18/25 22:00 02/18/25 22:00 Temperature Pulse Rate 117 H 117 H 117 H Respiratory Rate Blood Pressure 113/70 113/70 Pulse Oximetry Oxygen Delivery Fraction of Inspired Oxygen 02/18/25 22:00 02/18/25 22:00 02/18/25 23:00 Temperature 99.4 F Pulse Rate 117 H 117 H 113 H Respiratory Rate 22 H 22 H 22 H Blood Pressure 112/75 Pulse Oximetry 98 Oxygen Delivery Fraction of Inspired Oxygen 02/18/25 23:12 02/19/25 00:00 02/19/25 00:00 Temperature Pulse Rate 113 H 113 H 113 H Respiratory Rate Blood Pressure 113/69 113/69 Pulse Oximetry 98 Oxygen Delivery Mechanical Ventilation Fraction of Inspired Oxygen 50 02/19/25 00:00 02/19/25 00:00 02/19/25 00:00 Temperature 99.4 F Pulse Rate 113 H 113 H 113 H Respiratory Rate 22 H 22 H 22 H Blood Pressure 113/69 Pulse Oximetry 97 Oxygen Delivery Fraction of Inspired Oxygen 02/19/25 00:00 02/19/25 00:00 02/19/25 00:00 Temperature Pulse Rate 113 H 114 H Respiratory Rate 22 H Blood Pressure Pulse Oximetry 97 Oxygen Delivery Mechanical Ventilation Fraction of Inspired Oxygen 50 50 02/19/25 00:15 02/19/25 00:30 02/19/25 00:56 Temperature Pulse Rate 115 H 115 H 113 H Respiratory Rate Blood Pressure 125/79 113/72 105/71 Pulse Oximetry Oxygen Delivery Fraction of Inspired Oxygen 02/19/25 00:56 02/19/25 01:00 02/19/25 02:00 Temperature 99.4 F Pulse Rate 113 H 113 H 114 H Respiratory Rate 22 H Blood Pressure 105/71 101/69 105/69 Pulse Oximetry 96 Oxygen Delivery Fraction of Inspired Oxygen 02/19/25 02:00 02/19/25 02:00 02/19/25 02:00 Temperature Pulse Rate 114 H 114 H 114 H Respiratory Rate 22 H 22 H Blood Pressure 105/69 Pulse Oximetry Oxygen Delivery Fraction of Inspired Oxygen 02/19/25 02:00 02/19/25 02:00 02/19/25 02:20 Temperature 99.1 F Pulse Rate 114 H 114 H 116 H Respiratory Rate 22 H 23 H Blood Pressure 105/69 Pulse Oximetry 96 Oxygen Delivery Fraction of Inspired Oxygen 02/19/25 02:20 02/19/25 02:35 02/19/25 03:00 Temperature Pulse Rate 116 H 114 H 118 H Respiratory Rate 22 H 22 H Blood Pressure 106/68 Pulse Oximetry 97 97 Oxygen Delivery Mechanical Ventilation Fraction of Inspired Oxygen 50 02/19/25 04:00 02/19/25 04:00 02/19/25 04:00 Temperature Pulse Rate 119 H 119 H 119 H Respiratory Rate 22 H 22 H Blood Pressure 116/72 Pulse Oximetry Oxygen Delivery Fraction of Inspired Oxygen 02/19/25 04:00 02/19/25 04:00 02/19/25 04:00 Temperature 99.0 F Pulse Rate 114 H 119 H Respiratory Rate 22 H Blood Pressure 116/72 116/72 Pulse Oximetry 98 Oxygen Delivery Fraction of Inspired Oxygen 50 02/19/25 04:00 02/19/25 04:00 02/19/25 05:00 Temperature Pulse Rate 118 H 118 H 112 H Respiratory Rate 22 H 22 H Blood Pressure 102/66 Pulse Oximetry 97 97 Oxygen Delivery Mechanical Ventilation Fraction of Inspired Oxygen 50 02/19/25 05:05 02/19/25 06:00 02/19/25 06:00 Temperature Pulse Rate 111 H 111 H 111 H Respiratory Rate Blood Pressure 107/68 107/68 Pulse Oximetry 96 Oxygen Delivery Mechanical Ventilation Fraction of Inspired Oxygen 50 02/19/25 06:00 02/19/25 06:00 02/19/25 06:00 Temperature Pulse Rate 111 H 111 H 111 H Respiratory Rate 22 H 22 H Blood Pressure 107/68 Pulse Oximetry Oxygen Delivery Fraction of Inspired Oxygen 02/19/25 06:00 02/19/25 06:00 02/19/25 07:00 Temperature 99 F Pulse Rate 111 H 111 H 109 H Respiratory Rate 22 H 23 H Blood Pressure 107/68 106/66 Pulse Oximetry 97 97 Oxygen Delivery Fraction of Inspired Oxygen 02/19/25 08:00 02/19/25 08:00 02/19/25 08:00 Temperature 98.9 F Pulse Rate 111 H 111 H Respiratory Rate 23 H Blood Pressure 119/73 119/73 Pulse Oximetry 97 Oxygen Delivery Fraction of Inspired Oxygen 50 02/19/25 08:00 02/19/25 08:00 02/19/25 08:00 Temperature Pulse Rate 111 H 111 H 111 H Respiratory Rate 23 H 23 H Blood Pressure 119/73 Pulse Oximetry Oxygen Delivery Fraction of Inspired Oxygen 02/19/25 08:00 02/19/25 08:00 02/19/25 08:03 Temperature Pulse Rate 114 H 114 H Respiratory Rate 24 H Blood Pressure Pulse Oximetry 97 Oxygen Delivery Mechanical Ventilation Fraction of Inspired Oxygen 50 02/19/25 08:07 02/19/25 08:12 02/19/25 08:45 Temperature Pulse Rate 113 H 113 H 110 H Respiratory Rate 23 H Blood Pressure 112/68 Pulse Oximetry 97 Oxygen Delivery Mechanical Ventilation Fraction of Inspired Oxygen 50 02/19/25 09:00 02/19/25 09:00 02/19/25 10:00 Temperature 96.7 F L 98.4 F Pulse Rate 107 H 76 109 H Respiratory Rate 24 H 22 H Blood Pressure 102/65 109/66 97/62 L Pulse Oximetry 100 96 Oxygen Delivery Fraction of Inspired Oxygen 02/19/25 10:00 02/19/25 10:00 02/19/25 10:00 Temperature Pulse Rate 109 H 109 H 111 H Respiratory Rate 22 H Blood Pressure 97/62 L Pulse Oximetry Oxygen Delivery Fraction of Inspired Oxygen 02/19/25 10:00 02/19/25 10:56 02/19/25 10:58 Temperature Pulse Rate 109 H 106 H 106 H Respiratory Rate Blood Pressure 97/62 L 94/69 L Pulse Oximetry 97 Oxygen Delivery Mechanical Ventilation Fraction of Inspired Oxygen 50 02/19/25 11:00 02/19/25 11:00 02/19/25 11:02 Temperature Pulse Rate 106 H 106 H 106 H Respiratory Rate 22 H 22 H Blood Pressure 94/69 L 85/66 L Pulse Oximetry 98 Oxygen Delivery Fraction of Inspired Oxygen 02/19/25 11:02 02/19/25 11:04 02/19/25 11:04 Temperature Pulse Rate 106 H 106 H 106 H Respiratory Rate 22 H 22 H 22 H Blood Pressure Pulse Oximetry Oxygen Delivery Fraction of Inspired Oxygen 02/19/25 11:15 02/19/25 12:00 02/19/25 12:00 Temperature 98.1 F Pulse Rate 108 H 114 H Respiratory Rate 22 H Blood Pressure 100/69 98/69 L Pulse Oximetry 98 Oxygen Delivery Fraction of Inspired Oxygen 50 02/19/25 12:00 02/19/25 12:00 02/19/25 12:00 Temperature Pulse Rate 114 H 114 H Respiratory Rate 22 H Blood Pressure 98/69 L Pulse Oximetry 98 Oxygen Delivery Mechanical Ventilation Fraction of Inspired Oxygen 50 02/19/25 12:00 02/19/25 12:00 02/19/25 12:00 Temperature Pulse Rate 114 H 114 H 112 H Respiratory Rate 22 H Blood Pressure 98/69 L Pulse Oximetry Oxygen Delivery Fraction of Inspired Oxygen 02/19/25 13:00 02/19/25 13:54 02/19/25 13:58 Temperature 98.8 F Pulse Rate 116 H 114 H 119 H Respiratory Rate 21 H 22 H Blood Pressure 103/70 Pulse Oximetry 96 98 Oxygen Delivery Mechanical Ventilation Fraction of Inspired Oxygen 50 02/19/25 14:00 02/19/25 14:00 02/19/25 14:00 Temperature Pulse Rate 116 H 116 H 116 H Respiratory Rate 22 H Blood Pressure 117/79 117/79 Pulse Oximetry 97 Oxygen Delivery Fraction of Inspired Oxygen 02/19/25 14:00 02/19/25 14:03 02/19/25 14:25 Temperature Pulse Rate 116 H 119 H 116 H Respiratory Rate 22 H 23 H 22 H Blood Pressure Pulse Oximetry Oxygen Delivery Fraction of Inspired Oxygen Intake/Output Intake/Output: Intake & Output 02/16/25 02/17/25 02/18/25 02/19/25 23:59 23:59 23:59 23:59 Intake Total 2839.6 7304.2 2831.2 Output Total 500 1750 800 Balance 2339.6 5554.2 2031.2 Meds/Results Medications: Active Medications Generic Name Dose Route Start Last Admin Trade Name Freq PRN Reason Stop Dose Admin Acetaminophen 650 mg 02/17/25 20:19 02/18/25 14:31 Acetaminophen 325 Mg Tablet FEED TUBE 650 mg Q4H PRN Administration Mild Pain (1-3) or Fever Dextrose 12.5 gm 02/17/25 21:35 Dextrose 50% 25 Gm/50 Ml Syringe IV PUSH PRN PRN Hypoglycemia Protocol Folic Acid 1 mg 02/19/25 09:00 02/19/25 08:30 Folic Acid 1 Mg/0.2 Ml Inj IV PUSH 1 mg QAM KENNETH Administration Glucagon 1 mg 02/17/25 21:35 Glucagon For Inj 1 Mg Vial IM PRN PRN Hypoglycemia Protocol Glucose 15 gm 02/17/25 21:35 Glucose Oral Gel 15 Gm Of Glucse In 37.5 Gm Tube PO PRN PRN Hypoglycemia Protocol Heparin Sodium (Porcine) 5,000 units 02/18/25 14:00 02/19/25 14:14 Heparin Sodium 5,000 Units/Ml Vial SUB-Q 5,000 units Q8HR KENNETH Administration Cefepime HCl 2 gm/ Sodium 50 mls @ 100 mls/hr 02/18/25 06:00 02/19/25 06:45 Chloride IVPB Infused Q12H KENNETH Infusion Fentanyl Citrate 2,500 mcg in 250 mls @ 7.5 mls/hr 02/17/25 20:10 02/19/25 14:00 Fentanyl 2,500 Mcg/Ns 250 Ml IV CONT 75 mcg/hr .[id number] KENNETH 7.5 mls/hr Protocol Titration 75 MCG/HR Midazolam HCl 100 mg in 100 mls @ 3 mls/hr 02/17/25 20:10 02/19/25 14:25 Versed 100 Mg/Ns 100 Ml IV CONT 2 mg/hr .[id number] KENNETH 2 mls/hr Protocol Titration 3 MG/HR Dextrose 1,000 mls @ 100 mls/hr 02/17/25 21:35 Dextrose 5% 1,000 Ml IVPB PRN PRN Hypoglycemia Protocol Phenylephrine HCl 50 mg/ 250 mls @ 54 mls/hr 02/18/25 05:10 02/19/25 14:00 Sodium Chloride IV CONT 180 mcg/min .[id number] KENNETH 54 mls/hr Protocol Titration 180 MCG/MIN Doxycycline Hyclate 100 mg/ 100 mls @ 100 mls/hr 02/18/25 08:00 02/19/25 09:30 Sodium Chloride IVPB 02/23/25 07:59 Infused Q12H KENNETH Infusion Norepinephrine Bitartrate 8 mg in 250 mls @ 0 mls/hr 02/18/25 08:30 02/19/25 12:00 Levophed 8 Mg/D5w 250 Ml IV CONT Infused .Q0M KENNETH Titration Protocol Lactated Ringer's 1,000 mls @ 75 mls/hr 02/18/25 16:45 02/19/25 07:08 Lr - Lactated Ringers Iv IV CONT 75 mls/hr .[id number] KENNETH Administration Potassium Phosphate 20 mmol/ 256.6667 mls @ 64.167 mls/hr 02/19/25 12:00 02/19/25 14:00 Sodium Chloride IVPB 02/19/25 15:59 64.17 mls/hr ONCE ONE Infusion Vancomycin HCl 1,000 mg/ 250 mls @ 250 mls/hr 02/19/25 10:00 02/19/25 10:55 Sodium Chloride IVPB Infused Q12H KENNETH Infusion Insulin Aspart 3 - 6 units 02/18/25 00:00 02/19/25 12:18 Insulin Aspart (*Bkc) 100 Units/Ml SUB-Q Not Given Q4HR KENNETH Protocol Ipratropium [place] 0.5 mg 02/18/25 09:35 02/19/25 13:54 Ipratropium Br 0.02% Inh Soln 0.5 Mg/2.5 Ml Vial INHALATION 0.5 mg Q6HRT KENNETH Administration Levalbuterol HCl 0.63 mg 02/18/25 09:35 02/19/25 13:54 Levalbuterol Neb 1.25 Mg/3 Ml INHALATION 0.63 mg Q6HRT KENNETH Administration Metoclopramide HCl 10 mg 02/19/25 12:00 02/19/25 11:40 Metoclopramide Hcl Inj 10 Mg/2 Ml Vial IV PUSH 10 mg Q6HR KENNETH Administration Multi-Ingred Cream/Lotion/Oil/Oint 1 applic 02/17/25 21:00 02/19/25 08:29 Mineral Oil/White Petrolatum Ointment EACH EYE 1 applic Q12HR KENNETH Administration Pantoprazole Sodium 40 mg 02/18/25 09:00 02/19/25 08:29 Pantoprazole Sodium Iv 40 Mg Vial IV PUSH 40 mg Q12HR KENNETH Administration Perflutren Lipid Microsphere 0 ml 02/18/25 07:28 Perflutren Lipid Microspheres 1.5 Ml Vial Diluted To 10 Ml Total Volume IV PUSH 02/21/25 07:28 ONCE PRN adequate visualization Protocol Senna/Docusate Sodium 1 tab 02/17/25 21:00 02/18/25 21:11 Senna/Docusate Sodium Tablet FEED TUBE 1 tab HS KENNETH Administration Sodium Chloride 10 ml 02/18/25 22:00 02/19/25 14:14 Central Line Flush IV PUSH 10 ml Q8HR KENNETH Administration Sodium Chloride 20 ml 02/18/25 16:07 Central Line Flush IV PUSH PRN PRN after blood draws Thiamine HCl 100 mg 02/19/25 09:00 02/19/25 08:29 Thiamine Hcl 200 Mg/2 Ml Vial IV PUSH 100 mg QAM KENNETH Administration Radiology Results: ITS Impressions Head CT 02/17/25 16:55 IMPRESSION: 1. No acute intracranial hemorrhage. No mass effect. 2. Probable chronic ischemic white matter change. Chest/Abdomen/Pelvis CT 02/17/25 17:11 IMPRESSION: 1. Moderate sized groundglass opacities scattered throughout both lungs most prominent in the lower lobes. In addition, there are small to moderate sized patchy consolidations scattered throughout both lungs most prominent in the lower lobes. The findings are concerning for multilobar pneumonia. Other etiologies are possible but are felt to be less likely. Recommend follow-up to resolution. 2.There is a Daniels catheter in the bladder. Mild concentric thickening of the calvo of the bladder. Small amount of nondependent air in the bladder which may be due to recent instrumentation or cystitis. 3. Large amount of stool in the rectum. 4. The stomach is distended and filled with air. 5. Small amount of fat stranding with a few locules of air about the posterior aspect of the mid and distal sacrum. No obvious loculated fluid collection identified. No convincing CT evidence for sacral osteomyelitis at this time. Abdomen X-Ray 02/17/25 20:22 IMPRESSION: 1. Endotracheal tube and nasogastric tubes in expected position. 2. Patchy bilateral airspace opacities consistent with multifocal pneumonia. Abdomen Ultrasound 02/19/25 13:00 Impression: Limited study. No acute process Labs Labs: Laboratory Results - last 24 hr 02/18/25 02/18/25 02/18/25 15:52 16:15 21:27 WBC RBC Hgb Hct MCV MCH MCHC RDW Plt Count MPV Immature Gran % (Auto) Neut % (Auto) Lymph % (Auto) [place] % (Auto) Eos % (Auto) Baso % (Auto) Lymph # (Auto) [place] # (Auto) Eos # (Auto) Baso # (Auto) Abs Immat Gran (auto) Absolute Neuts (auto) Absolute Nucleated RBC Total Counted Neutrophils % (Manual) Band Neutrophils % Lymphocytes % (Manual) Monocytes % (Manual) Nucleated RBC % Abs Neuts (Manual) Abs Lymphs (Manual) Abs Monocytes (Manual) Smudge Cells Platelet Estimate Anisocytosis Ovalocytes [place] Cells Schistocytes PT INR APTT Puncture Site ABG pH ABG pCO2 ABG pO2 ABG PO2/FiO2 Ratio ABG HCO3 ABG O2 Saturation ABG O2 Content ABG Base Excess A-a Gradient Oxyhemoglobin Carboxyhemoglobin Methemoglobin Reduced Hemoglobin Total Hemoglobin O2 Delivery Device O2 Liters/Min Minute Volume Vent Rate Vent Mode FiO2 Tidal Volume PEEP Peak Inspir Pressure Pressure Support Sodium 148 H Potassium 3.1 L Chloride 111 H Carbon Dioxide 22 Anion Gap 15 H BUN 33 H D Creatinine 0.67 L Estim Creat Clear Calc 75 Estimated GFR > 60 Glucose 114 H POC Capillary Glucose 113 H 102 Lactic Acid 2.4 H Calcium 8.5 Phosphorus Magnesium Total Bilirubin AST ALT Alkaline Phosphatase Total Creatine Kinase Total Protein Albumin Lipase Random Vancomycin Hepatitis A IgM Ab Hep Bs Antigen Hep B Core IgM Ab Hepatitis C Ab Screen 02/19/25 02/19/25 02/19/25 00:10 03:50 05:11 WBC 23.0 H RBC 3.68 L Hgb 9.6 L Hct 29.9 L MCV 81.3 MCH 26.1 MCHC 32.1 RDW 16.3 H Plt Count 249 MPV 9.1 Immature Gran % (Auto) Not Reportable Neut % (Auto) Not Reportable Lymph % (Auto) Not Reportable [place] % (Auto) Not Reportable Eos % (Auto) Not Reportable Baso % (Auto) Not Reportable Lymph # (Auto) Not Reportable [place] # (Auto) Not Reportable Eos # (Auto) Not Reportable Baso # (Auto) Not Reportable Abs Immat Gran (auto) Not Reportable Absolute Neuts (auto) Not Reportable Absolute Nucleated RBC Not Reportable Total Counted 100 Neutrophils % (Manual) 81 H Band Neutrophils % 9 H Lymphocytes % (Manual) 5.0 L Monocytes % (Manual) 5 Nucleated RBC % Not Reportable Abs Neuts (Manual) 20.70 H Abs Lymphs (Manual) 1.15 Abs Monocytes (Manual) 1.15 H Smudge Cells Present Platelet Estimate Adequate Anisocytosis 1+ Ovalocytes 1+ [place] Cells 1+ Schistocytes None seen PT 20.2 H D INR 1.7 APTT 53.2 H Puncture Site Right brachial ABG pH 7.341 L ABG pCO2 33.5 L ABG pO2 70.4 L ABG PO2/FiO2 Ratio 1.41 ABG HCO3 17.7 L ABG O2 Saturation 93.5 L ABG O2 Content 14.1 L ABG Base Excess -7.2 A-a Gradient 248.4 Oxyhemoglobin 93.2 Carboxyhemoglobin 0.3 Methemoglobin 0.1 Reduced Hemoglobin 6.4 H Total Hemoglobin 10.7 L O2 Delivery Device Ventilator O2 Liters/Min Not Reportable Minute Volume Not Reportable Vent Rate 22 Vent Mode Cmv FiO2 50 Tidal Volume 450 PEEP 10 Peak Inspir Pressure Not Reportable Pressure Support Not Reportable Sodium 151 H Potassium 3.0 L Chloride 115 H Carbon Dioxide 19 L Anion Gap 17 H BUN 26 H Creatinine 0.59 L Estim Creat Clear Calc 84 Estimated GFR > 60 Glucose 93 POC Capillary Glucose 91 Lactic Acid 2.0 Calcium 8.9 Phosphorus 1.3 L Magnesium 2.0 Total Bilirubin 1.0 AST 544 H ALT 294 H Alkaline Phosphatase 156 H Total Creatine Kinase 99 Total Protein 6.1 L Albumin 3.4 L Lipase 16 L Random Vancomycin Hepatitis A IgM Ab Hep Bs Antigen Hep B Core IgM Ab Hepatitis C Ab Screen 02/19/25 02/19/25 02/19/25 07:51 07:56 12:17 WBC RBC Hgb Hct MCV MCH MCHC RDW Plt Count MPV Immature Gran % (Auto) Neut % (Auto) Lymph % (Auto) [place] % (Auto) Eos % (Auto) Baso % (Auto) Lymph # (Auto) [place] # (Auto) Eos # (Auto) Baso # (Auto) Abs Immat Gran (auto) Absolute Neuts (auto) Absolute Nucleated RBC Total Counted Neutrophils % (Manual) Band Neutrophils % Lymphocytes % (Manual) Monocytes % (Manual) Nucleated RBC % Abs Neuts (Manual) Abs Lymphs (Manual) Abs Monocytes (Manual) Smudge Cells Platelet Estimate Anisocytosis Ovalocytes [place] Cells Schistocytes PT INR APTT Puncture Site ABG pH ABG pCO2 ABG pO2 ABG PO2/FiO2 Ratio ABG HCO3 ABG O2 Saturation ABG O2 Content ABG Base Excess A-a Gradient Oxyhemoglobin Carboxyhemoglobin Methemoglobin Reduced Hemoglobin Total Hemoglobin O2 Delivery Device O2 Liters/Min Minute Volume Vent Rate Vent Mode FiO2 Tidal Volume PEEP Peak Inspir Pressure Pressure Support Sodium Potassium Chloride Carbon Dioxide Anion Gap BUN Creatinine Estim Creat Clear Calc Estimated GFR Glucose POC Capillary Glucose 80 82 Lactic Acid Calcium Phosphorus Magnesium Total Bilirubin AST ALT Alkaline Phosphatase Total Creatine Kinase Total Protein Albumin Lipase Random Vancomycin < 5.0 L Hepatitis A IgM Ab Negative Hep Bs Antigen Negative Hep B Core IgM Ab Negative Hepatitis C Ab Screen Negative
[2025-02-19] MEDS: SENNA/DOCUSATE SODIUM TABLET 1 TAB FEED TUBE (21:12)
[2025-02-20] VITALS (65 sets, daily range): BP systolic 89–128; BP diastolic 64–82; PULSE 84–130; RESP 16–24; TEMP 36.6–37.7; O2SAT 99–100
[2025-02-20] MEDS: METOCLOPRAMIDE HCL INJ 10 MG/2 ML VIAL IV PUSH ×4 (00:10→18:07)
[2025-02-20] MEDS: IPRATROPIUM BR 0.02% INH SOLN 0.5 MG/2.5 ML VIAL INHALATION ×4 (01:00→20:22)
[2025-02-20] MEDS: PHENYLEPHRINE HCL INJ 50 MG in SODIUM CHLORIDE 0.9% IV 245 ML 39 ML IV CONT (01:51)
[2025-02-20 05:22] LABS: Hematocrit 30.2 % (42.0-52.0); Hemoglobin 9.6 g/dL (14.0-18.0); Immature Granulocyte Percent A 1.0 % (0-0.5); Lymphocytes Absolute Auto 0.67 K/mm3 (0.9-3.2); Mean Corpuscular HGB Conc 31.8 g/dl (32-36); Mean Corpuscular Hemoglobin 26.4 pg (26-34); Mean Corpuscular Volume 83.2 fl (80-100); Nucleated Red Blood Cells Absolute Auto 0.040 K/mm3 (0.0-0.012); Nucleated Red Blood Cells Perc 0.2 % (0.0-0.2); Platelet Count Result 227 k/mm3 (150-375); Red Blood Count 3.63 M/mm3 (4.6-6.20); White Blood Count 22.8 K/mm3 (4.5-10.0)
[2025-02-20] MEDS: CEFEPIME 2 GM in SODIUM CHLORIDE 0.9% IV 50 ML 100 ML IVPB ×2 (05:31→18:07)
[2025-02-20 05:33] LABS: Alveolar/Arterial O2 Gradient 220.2 mmHg; Carboxyhemoglobin 0.0 % THb (0-2.0); Fractional Inspired Oxygen 50 %; HCO3 ABG 14.5 mEq/l (22.0-26.0); Methemoglobin ABG 0.2 %THb (0-1.5); Oxygen Content ABG 14.2 %vol (16.0-22.0); Oxygen Saturation ABG 97.1 % (95.0-100.0); PCO2 ABG 31.1 mmHg (35.0-45.0); PO2 ABG 101.3 mmHg (80.0-100.0); PO2 FiO2 Ratio Arterial Blood 2.03 %; Reduced Hemoglobin 2.5 %THb (0-5.0)
[2025-02-20] MEDS: CENTRAL LINE FLUSH 20 ML IV PUSH (05:33)
[2025-02-20] MEDS: CENTRAL LINE FLUSH 10 ML IV PUSH ×3 (05:33→22:09)
[2025-02-20 05:39] LABS: Modified Allen's Test Pass; Site Drawn RIGHT RADIAL
[2025-02-20 05:40] LABS: Arterial Blood Gas Tidal Volume 450 ml; Arterial Blood Gas Ventilator rate 22 /MIN
[2025-02-20 05:53] LABS: Alanine Aminotransferase 225 U/L (6-50); Albumin Level 3.1 g/dL (3.5-5.1); Alkaline Phosphatase 269 U/L (38-126); Anion Gap 17 mmol/L (4-12); Aspartate Amino Transferase 187 U/L (17-59); Bilirubin,Total 0.9 mg/dL (0.2-1.3); Blood Urea Nitrogen 21 mg/dL (9-20); Calcium 9.1 mg/dL (8.4-10.2); Carbon Dioxide 17 mmol/L (22-30); Chloride 120 mmol/L (98-107); Estimated CRCL calculation 87 ml/min; Estimated Glomerular Filt Rate > 60; Glucose 114 mg/dL (65-110); Magnesium 1.9 mg/dL (1.6-2.3); Potassium 2.9 mmol/L (3.4-5.0); Sodium 154 mmol/L (137-145); Total Protein 5.9 g/dL (6.3-8.2)
[2025-02-20] MEDS: SODIUM BICARBONATE 8.4% 50 MEQ/50 ML SYRINGE 100 MEQ IV PUSH (06:27)
[2025-02-20] MEDS: THIAMINE HCL 200 MG/2 ML VIAL 100 MG IV PUSH (07:44)
[2025-02-20] MEDS: PANTOPRAZOLE SODIUM IV 40 MG VIAL IV PUSH ×2 (07:44→20:16)
[2025-02-20] MEDS: POTASSIUM CHLORIDE 20 MEQ PACKET (FOR LIQUID) 40 MEQ PO (07:44)
[2025-02-20 07:46] LABS: Creatine Kinase 99 U/L (55-170)
[2025-02-20] MEDS: DOXYCYCLINE IV 100 MG in SODIUM CHLORIDE 0.9% IV 100 ML IVPB ×2 (08:12→20:15)
[2025-02-20] MEDS: MAGNESIUM SULF 2 GM/WATER 50ML 2 GM/50 ML BAG IVPB (08:13)
[2025-02-20 08:22] LABS: Urine Eos QC 2nd Tech Confirmed
--- NOTE | 2025-02-20 08:24 | WPDINTPN ---
Progress Note: A&P Assessment and Plan (1) Septic shock: Code(s): A41.9 - Sepsis, unspecified organism; R65.21 - Severe sepsis with septic shock Status: Acute Assessment and Plan: 02/17: Patient presented from a long term with altered mental status, shortness of breath. Initially had Leukocytosis. Patient did receive 2 L IV fluid bolus in the ER, was transferred to the intermediate Unit and immediately upon arrival to the IMU, rapid response was called due to hypoxia, tachypnea, tachycardia. Patient was transferred to of the ICU -likely etiology pneumonia and UTI -lactic acid normalized -adequately fluid-resuscitated in the ICU -continue Toan-Synephrine, , maintain MAP > 65 mm Hg or SBP > 100 mmHg to achieve adequate end organ perfusion -OFF Levophed -status post albumin for intravascular volume expansion -02/17: Preliminary blood cultures are negative x2 -02/17: Urine cultures growing Gram-negative bacilli -02/18: Sputum culture pending 02/17: Nasal MRSA screen is positive -continue cefepime, doxycycline and vancomycin (02/17), -DC IV fluids (2) Acute respiratory failure: Code(s): J96.00 - Acute respiratory failure, unspecified whether with hypoxia or hypercapnia Status: Acute Assessment and Plan: 02/17: Patient was transferred to the ICU from intermediate Unit, 02/17: emergently intubated by ER physician likely cause multifocal pneumonia -patient is on CMV mode of ventilation, peep of 10, 50% FiO2 -chest x-ray and ABGs reviewed, -continue bronchodilators - Xopenex and Atrovent -sedated with fentanyl and Versed, will maintain RASS of 0 to -2 -daily SBT and SAT 02/17: CT chest, abdomen and pelvis IMPRESSION: 1. Moderate sized groundglass opacities scattered throughout both lungs most prominent in the lower lobes. In addition, there are small to moderate sized patchy consolidations scattered throughout both lungs most prominent in the lower lobes. The findings are concerning for multilobar pneumonia. Other etiologies are possible but are felt to be less likely. Recommend follow-up to resolution. 2.There is a Daniels catheter in the bladder. Mild concentric thickening of the calvo of the bladder. Small amount of nondependent air in the bladder which may be due to recent instrumentation or cystitis. 3. Large amount of stool in the rectum. 4. The stomach is distended and filled with air. 5. Small amount of fat stranding with a few locules of air about the posterior aspect of the mid and distal sacrum. No obvious loculated fluid collection identified. No convincing CT evidence for sacral osteomyelitis at this time. (3) Multifocal pneumonia: Code(s): J18.8 - Other pneumonia, unspecified organism Status: Acute Assessment and Plan: Multifocal pneumonia -continue treatment as above -sputum cultures pending (4) Acute UTI: Code(s): N39.0 - Urinary tract infection, site not specified Status: Acute Assessment and Plan: UA was positive for UTI, urine cultures GNR -continue antibiotics as above (5) Diabetes: Code(s): E11.9 - Type 2 diabetes mellitus without complications Status: Acute Assessment and Plan: Accu-Cheks and sliding scale insulin (6) Sacral ulcer: Code(s): L98.429 - Non-pressure chronic ulcer of back with unspecified severity Status: Acute Assessment and Plan: Patient has a sacral ulcer -appreciate wound care evaluation and recommendations 02/17: CT abdomen and pelvis: Small amount of fat stranding with a few locules of air about the posterior aspect of the mid and distal sacrum. No obvious loculated fluid collection identified. No convincing CT evidence for sacral osteomyelitis at this time. (7) Severe protein-calorie malnutrition: Code(s): E43 - Unspecified severe protein-calorie malnutrition Status: Acute Assessment and Plan: According to the niece patient has lost lot of weight since August 2024, initially she stated he unable to feed himself due to his neuropathy and was not being adequately fed at the long term, after this surgery and when he was able to move his arms he stated he was not eating well because he was not hungry. -patient's BMI is 18.3, given his height, age, gender he does classify into severe protein calorie malnutrition -appreciate dietitian evaluation recommendations -continue tube feeds at 10 mL/hour with a goal of 10 mL/hour as patient continues to have low phosphorus, potassium and magnesium, hypernatremia. -could thiamine and folic acid (8) Electrolyte imbalance: Code(s): E87.8 - Other disorders of electrolyte and fluid balance, not elsewhere classified Status: Acute Assessment and Plan: Hypernatremia: Will increase tube feed free water flushes to 200 mL /hr -Nephrology has been consulted for anion gap metabolic acidosis and hypernatremia -discussed with Nephrology, started patient on D5 water, check serial labs Hypokalemia and hypophosphatemia: Will replace potassium and phosphorus -will also replace magnesium Plan DVT prophylaxis: Heparin subQ Stress ulcer prophylaxis: Protonix Nutrition: Maintain tube feeds at 10 mL/hour for now to avoid refeeding syndrome, continue Reglan Code Status: Full code Critical Care Time Spent: 33 minutes Discussed with patient's niece, Jocelyn who also is one of the decision makers along with patient's sister Sarah. I updated her regarding patient's condition and plan of care. She is aware of the multifocal pneumonia, urinary tract infection. She is aware that he is requiring higher support from the breathing machine at this time, that he is on antibiotics. I answered all her questions Due to a high probability of clinically significant, life threatening deterioration, the patient required my highest level of preparedness to intervene emergently and I personally spent this critical care time directly and personally managing the patient. This critical care time included obtaining a history; examining the patient; pulse oximetry; ordering and review of studies; arranging urgent treatment with development of a management plan; evaluation of patient's response to treatment; frequent reassessment; and discussions with other providers. It was exclusive of separately billable procedures and treating other patients and teaching time. Please see Assessment and Plan section and the rest of the note for further information on patient assessment and treatment This dictation may have been done utilizing a voice recognition system. Attempts have been made to correct errors. However, there may be uncorrected grammatical, spelling, and recognitions errors present. Subjective Date/time seen: 02/20/25 08:24 Interval history: Reason for consult: Septic shock, acute respiratory failure, pneumonia, UTI, lactic acidosis, altered mental status 64yo male with HLD, DM and Asthma who presents with altered mental status and hypoxia from his long term. Rapid response called once patient arrived to IMU for being hypoxic. Transferred to the ICU and emergently intubated by ER physician 02/20/2025: Patient seen examined the ICU, remains intubated on CMV mode of ventilation, peep of 10, 50% FiO2, sedated with fentanyl and Versed infusion. Does not open his eyes or follow simple commands. Urine output has been good, urine has been leaking around has suprapubic catheter. Remains on Toan-Synephrine and 80 mcg/min. Patient has been afebrile T-max of 100.3? Review of Systems Review of Systems: ROS unobtainable: Yes unobtainable due to endotracheal tube, unobtainable due to medical condition and unobtainable due to mental status Exam Narrative: General: intubated and sedated, in no acute distress HEENT:? Pupils equal and reactive, sclera is clear, ETT in place Neck:? Supple Respiratory:? Coarse breath sounds bilaterally, decreased at bases, no wheezing, adequate air entry Cardiac:? S1-S2 is normal, sinus tachycardia Abdomen:? Scaphoid abdomen, soft, nontender, hypoactive bowel sounds, patient cachectic and malnourished, patient has a sacral decubitus ulcer Extremities:? No edema, decreased pedal pulses Neuro:? Patient is intubated, sedated, does not open his eyes or follow simple commands, withdraws to pain Skin:? old healing ulcers on the foot bilateral Psych:? Unable to assess at this time Objective Data Vital Signs Vital Signs: Vital Signs - 24 hr 02/19/25 08:45 02/19/25 09:00 02/19/25 09:00 Temperature 96.7 F L Pulse Rate 110 H 107 H 76 Respiratory Rate 24 H Blood Pressure 112/68 102/65 109/66 Pulse Oximetry 100 Oxygen Delivery Fraction of Inspired Oxygen 02/19/25 10:00 02/19/25 10:00 02/19/25 10:00 Temperature 98.4 F Pulse Rate 109 H 109 H 109 H Respiratory Rate 22 H 22 H Blood Pressure 97/62 L 97/62 L Pulse Oximetry 96 Oxygen Delivery Fraction of Inspired Oxygen 02/19/25 10:00 02/19/25 10:00 02/19/25 10:56 Temperature Pulse Rate 111 H 109 H 106 H Respiratory Rate Blood Pressure 97/62 L 94/69 L Pulse Oximetry Oxygen Delivery Fraction of Inspired Oxygen 02/19/25 10:58 02/19/25 11:00 02/19/25 11:00 Temperature Pulse Rate 106 H 106 H 106 H Respiratory Rate 22 H Blood Pressure 94/69 L 85/66 L Pulse Oximetry 97 98 Oxygen Delivery Mechanical Ventilation Fraction of Inspired Oxygen 50 02/19/25 11:02 02/19/25 11:02 02/19/25 11:04 Temperature Pulse Rate 106 H 106 H 106 H Respiratory Rate 22 H 22 H 22 H Blood Pressure Pulse Oximetry Oxygen Delivery Fraction of Inspired Oxygen 02/19/25 11:04 02/19/25 11:15 02/19/25 12:00 Temperature 98.1 F Pulse Rate 106 H 108 H 114 H Respiratory Rate 22 H 22 H Blood Pressure 100/69 98/69 L Pulse Oximetry 98 Oxygen Delivery Fraction of Inspired Oxygen 02/19/25 12:00 02/19/25 12:00 02/19/25 12:00 Temperature Pulse Rate 114 H Respiratory Rate Blood Pressure 98/69 L Pulse Oximetry 98 Oxygen Delivery Mechanical Ventilation Fraction of Inspired Oxygen 50 50 02/19/25 12:00 02/19/25 12:00 02/19/25 12:00 Temperature Pulse Rate 114 H 114 H 114 H Respiratory Rate 22 H 22 H Blood Pressure 98/69 L Pulse Oximetry Oxygen Delivery Fraction of Inspired Oxygen 02/19/25 12:00 02/19/25 13:00 02/19/25 13:54 Temperature 98.8 F Pulse Rate 112 H 116 H 114 H Respiratory Rate 21 H 22 H Blood Pressure 103/70 Pulse Oximetry 96 Oxygen Delivery Fraction of Inspired Oxygen 02/19/25 13:58 02/19/25 14:00 02/19/25 14:00 Temperature Pulse Rate 119 H 116 H 116 H Respiratory Rate 22 H Blood Pressure 117/79 Pulse Oximetry 98 97 Oxygen Delivery Mechanical Ventilation Fraction of Inspired Oxygen 50 02/19/25 14:00 02/19/25 14:00 02/19/25 14:03 Temperature Pulse Rate 116 H 116 H 119 H Respiratory Rate 22 H 23 H Blood Pressure 117/79 Pulse Oximetry Oxygen Delivery Fraction of Inspired Oxygen 02/19/25 14:25 02/19/25 15:00 02/19/25 15:38 Temperature Pulse Rate 116 H 116 H 115 H Respiratory Rate 22 H 22 H Blood Pressure 102/67 101/68 Pulse Oximetry 98 Oxygen Delivery Fraction of Inspired Oxygen 02/19/25 15:50 02/19/25 15:58 02/19/25 16:00 Temperature 98.4 F Pulse Rate 115 H 115 H Respiratory Rate 23 H Blood Pressure 101/68 111/77 Pulse Oximetry 98 Oxygen Delivery Fraction of Inspired Oxygen 50 02/19/25 16:00 02/19/25 16:00 02/19/25 16:00 Temperature Pulse Rate 115 H 115 H 115 H Respiratory Rate 22 H 22 H Blood Pressure 111/77 Pulse Oximetry Oxygen Delivery Fraction of Inspired Oxygen 02/19/25 16:00 02/19/25 16:00 02/19/25 16:30 Temperature Pulse Rate 120 H 117 H Respiratory Rate Blood Pressure Pulse Oximetry 98 97 Oxygen Delivery Mechanical Ventilation Mechanical Ventilation Fraction of Inspired Oxygen 50 50 02/19/25 17:00 02/19/25 18:00 02/19/25 18:00 Temperature Pulse Rate 116 H 116 H 116 H Respiratory Rate 22 H Blood Pressure 108/72 104/65 Pulse Oximetry 98 Oxygen Delivery Fraction of Inspired Oxygen 02/19/25 18:00 02/19/25 18:00 02/19/25 18:00 Temperature Pulse Rate 116 H 116 H 116 H Respiratory Rate 24 H 24 H 23 H Blood Pressure 104/65 Pulse Oximetry 98 Oxygen Delivery Fraction of Inspired Oxygen 02/19/25 19:00 02/19/25 19:15 02/19/25 19:16 Temperature 98.6 F Pulse Rate 120 H 118 H 118 H Respiratory Rate 24 H 22 H 23 H Blood Pressure 109/77 105/72 Pulse Oximetry 98 99 99 Oxygen Delivery Fraction of Inspired Oxygen 02/19/25 19:30 02/19/25 19:31 02/19/25 19:45 Temperature Pulse Rate 117 H 117 H 119 H Respiratory Rate 23 H 24 H 25 H Blood Pressure 108/71 114/78 Pulse Oximetry 98 98 98 Oxygen Delivery Fraction of Inspired Oxygen 02/19/25 19:46 02/19/25 19:53 02/19/25 19:53 Temperature Pulse Rate 119 H 117 H 117 H Respiratory Rate 24 H 23 H Blood Pressure Pulse Oximetry 99 100 Oxygen Delivery Mechanical Ventilation Fraction of Inspired Oxygen 50 02/19/25 19:58 02/19/25 20:00 02/19/25 20:00 Temperature Pulse Rate 119 H 117 H 118 H Respiratory Rate 23 H Blood Pressure 108/69 Pulse Oximetry Oxygen Delivery Fraction of Inspired Oxygen 02/19/25 20:00 02/19/25 20:00 02/19/25 20:00 Temperature 100.3 F H Pulse Rate 117 H 117 H Respiratory Rate 22 H 25 H Blood Pressure 108/69 Pulse Oximetry 100 Oxygen Delivery Fraction of Inspired Oxygen 50 02/19/25 20:00 02/19/25 20:00 02/19/25 20:01 Temperature Pulse Rate 117 H 117 H 117 H Respiratory Rate 25 H 22 H 25 H Blood Pressure 108/69 Pulse Oximetry 99 99 Oxygen Delivery Fraction of Inspired Oxygen 02/19/25 20:15 02/19/25 20:16 02/19/25 20:28 Temperature Pulse Rate 119 H 120 H 120 H Respiratory Rate 26 H 23 H Blood Pressure 106/73 106/70 Pulse Oximetry 98 98 Oxygen Delivery Fraction of Inspired Oxygen 02/19/25 20:31 02/19/25 20:34 02/19/25 20:45 Temperature Pulse Rate 121 H 120 H 124 H Respiratory Rate 22 H 20 Blood Pressure 106/70 115/70 Pulse Oximetry 99 99 Oxygen Delivery Fraction of Inspired Oxygen 02/19/25 20:46 02/19/25 21:00 02/19/25 21:00 Temperature Pulse Rate 124 H 123 H 123 H Respiratory Rate 21 H 22 H 23 H Blood Pressure 111/72 Pulse Oximetry 99 99 99 Oxygen Delivery Mechanical Ventilation Fraction of Inspired Oxygen 50 02/19/25 21:00 02/19/25 21:01 02/19/25 21:15 Temperature Pulse Rate 123 H 122 H 124 H Respiratory Rate 21 H 26 H 26 H Blood Pressure 111/72 120/78 Pulse Oximetry 98 98 99 Oxygen Delivery Fraction of Inspired Oxygen 02/19/25 21:16 02/19/25 21:30 02/19/25 21:31 Temperature Pulse Rate 124 H 122 H 122 H Respiratory Rate 23 H 22 H 23 H Blood Pressure 111/68 Pulse Oximetry 99 99 99 Oxygen Delivery Fraction of Inspired Oxygen 02/19/25 21:45 02/19/25 21:46 02/19/25 22:00 Temperature Pulse Rate 119 H 119 H 118 H Respiratory Rate 23 H 23 H Blood Pressure 110/71 109/75 Pulse Oximetry 99 99 Oxygen Delivery Fraction of Inspired Oxygen 02/19/25 22:00 02/19/25 22:00 02/19/25 22:00 Temperature Pulse Rate 118 H 121 H 118 H Respiratory Rate 22 H 23 H Blood Pressure 117/73 Pulse Oximetry 100 Oxygen Delivery Fraction of Inspired Oxygen 02/19/25 22:00 02/19/25 22:00 02/19/25 22:01 Temperature Pulse Rate 118 H 118 H 118 H Respiratory Rate 23 H 23 H 23 H Blood Pressure 109/75 Pulse Oximetry 99 99 Oxygen Delivery Fraction of Inspired Oxygen 02/19/25 22:15 02/19/25 22:16 02/19/25 22:30 Temperature Pulse Rate 123 H 123 H 121 H Respiratory Rate 21 H 25 H Blood Pressure 125/77 117/73 Pulse Oximetry 100 100 Oxygen Delivery Fraction of Inspired Oxygen 02/19/25 22:38 02/19/25 22:45 02/19/25 22:46 Temperature Pulse Rate 121 H 119 H 119 H Respiratory Rate 26 H 22 H 23 H Blood Pressure 103/64 Pulse Oximetry 99 99 99 Oxygen Delivery Fraction of Inspired Oxygen 02/19/25 23:00 02/19/25 23:00 02/19/25 23:00 Temperature Pulse Rate 118 H 118 H 117 H Respiratory Rate 22 H 18 Blood Pressure 97/69 L 97/69 L Pulse Oximetry 99 98 99 Oxygen Delivery Mechanical Ventilation Fraction of Inspired Oxygen 50 02/19/25 23:01 02/19/25 23:17 02/19/25 23:30 Temperature Pulse Rate 117 H 116 H 116 H Respiratory Rate 17 18 18 Blood Pressure 103/69 Pulse Oximetry 99 99 99 Oxygen Delivery Fraction of Inspired Oxygen 02/19/25 23:31 02/19/25 23:45 02/19/25 23:46 Temperature Pulse Rate 116 H 115 H 115 H Respiratory Rate 17 23 H 21 H Blood Pressure 102/69 Pulse Oximetry 99 99 99 Oxygen Delivery Fraction of Inspired Oxygen 02/19/25 23:48 02/20/25 00:00 02/20/25 00:00 Temperature Pulse Rate 115 H 120 H 118 H Respiratory Rate 23 H 23 H 23 H Blood Pressure Pulse Oximetry 100 Oxygen Delivery Mechanical Ventilation Fraction of Inspired Oxygen 50 02/20/25 00:00 02/20/25 00:00 02/20/25 00:00 Temperature 98.4 F Pulse Rate 130 H 120 H Respiratory Rate 23 H Blood Pressure 118/77 Pulse Oximetry 100 Oxygen Delivery Fraction of Inspired Oxygen 50 02/20/25 00:09 02/20/25 00:15 02/20/25 00:16 Temperature Pulse Rate 118 H 117 H 117 H Respiratory Rate 16 18 17 Blood Pressure 109/68 Pulse Oximetry 100 100 100 Oxygen Delivery Fraction of Inspired Oxygen 02/20/25 00:30 02/20/25 00:31 02/20/25 00:45 Temperature Pulse Rate 115 H 114 H 114 H Respiratory Rate 18 17 17 Blood Pressure 102/69 103/69 Pulse Oximetry 100 99 100 Oxygen Delivery Fraction of Inspired Oxygen 02/20/25 00:47 02/20/25 01:00 02/20/25 01:00 Temperature Pulse Rate 114 H 113 H 113 H Respiratory Rate 16 22 H Blood Pressure 105/67 Pulse Oximetry 100 100 100 Oxygen Delivery Mechanical Ventilation Fraction of Inspired Oxygen 50 02/20/25 01:00 02/20/25 01:00 02/20/25 01:01 Temperature Pulse Rate 113 H 113 H 113 H Respiratory Rate 16 23 H 16 Blood Pressure 105/67 Pulse Oximetry 100 100 Oxygen Delivery Fraction of Inspired Oxygen 02/20/25 01:06 02/20/25 01:15 02/20/25 01:16 Temperature Pulse Rate 107 H 114 H 114 H Respiratory Rate 23 H 17 18 Blood Pressure 99/68 L Pulse Oximetry 99 99 Oxygen Delivery Fraction of Inspired Oxygen 02/20/25 01:30 02/20/25 01:31 02/20/25 01:38 Temperature Pulse Rate 115 H 115 H 120 H Respiratory Rate 16 16 Blood Pressure 104/67 118/74 Pulse Oximetry 100 100 Oxygen Delivery Fraction of Inspired Oxygen 02/20/25 01:46 02/20/25 01:51 02/20/25 02:00 Temperature Pulse Rate 119 H 120 H 117 H Respiratory Rate 18 Blood Pressure 118/74 Pulse Oximetry 100 Oxygen Delivery Fraction of Inspired Oxygen 02/20/25 02:00 02/20/25 02:02 02/20/25 02:05 Temperature Pulse Rate 117 H 118 H 118 H Respiratory Rate 23 H 18 23 H Blood Pressure 107/82 Pulse Oximetry 99 99 Oxygen Delivery Fraction of Inspired Oxygen 02/20/25 02:06 02/20/25 03:00 02/20/25 04:00 Temperature Pulse Rate 117 H 114 H 113 H Respiratory Rate 23 H 22 H Blood Pressure 104/68 Pulse Oximetry 100 Oxygen Delivery Fraction of Inspired Oxygen 02/20/25 04:00 02/20/25 04:00 02/20/25 04:00 Temperature Pulse Rate 113 H 113 H 113 H Respiratory Rate 22 H 22 H Blood Pressure 103/69 103/69 Pulse Oximetry 100 Oxygen Delivery Fraction of Inspired Oxygen 02/20/25 04:00 02/20/25 04:00 02/20/25 04:00 Temperature Pulse Rate 113 H Respiratory Rate 22 H Blood Pressure Pulse Oximetry 100 Oxygen Delivery Mechanical Ventilation Fraction of Inspired Oxygen 50 50 02/20/25 05:00 02/20/25 05:02 02/20/25 05:35 Temperature 98.3 F Pulse Rate 117 H 117 H 115 H Respiratory Rate 23 H Blood Pressure 116/74 116/74 Pulse Oximetry 100 100 Oxygen Delivery Mechanical Ventilation Fraction of Inspired Oxygen 50 02/20/25 06:00 02/20/25 06:00 02/20/25 06:00 Temperature Pulse Rate 111 H 111 H 111 H Respiratory Rate 22 H 22 H Blood Pressure 104/66 Pulse Oximetry 100 Oxygen Delivery Fraction of Inspired Oxygen 02/20/25 06:00 02/20/25 06:23 02/20/25 06:32 Temperature Pulse Rate 111 H 110 H 118 H Respiratory Rate 22 H Blood Pressure 104/66 113/77 Pulse Oximetry Oxygen Delivery Fraction of Inspired Oxygen 02/20/25 08:17 Temperature Pulse Rate 106 H Respiratory Rate 24 H Blood Pressure Pulse Oximetry Oxygen Delivery Fraction of Inspired Oxygen Intake/Output Intake/Output: Intake & Output 02/17/25 02/18/25 02/19/25 02/20/25 23:59 23:59 23:59 23:59 Intake Total 2839.6 7304.2 5459.3667 1446.3 Output Total 500 1750 1900 650 Balance 2339.6 5554.2 3559.3667 796.3 Meds/Results Medications: Active Medications Generic Name Dose Route Start Last Admin Trade Name Freq PRN Reason Stop Dose Admin Acetaminophen 650 mg 02/17/25 20:19 02/18/25 14:31 Acetaminophen 325 Mg Tablet FEED TUBE 650 mg Q4H PRN Administration Mild Pain (1-3) or Fever Dextrose 12.5 gm 02/17/25 21:35 Dextrose 50% 25 Gm/50 Ml Syringe IV PUSH PRN PRN Hypoglycemia Protocol Folic Acid 1 mg 02/19/25 09:00 02/19/25 08:30 Folic Acid 1 Mg/0.2 Ml Inj IV PUSH 1 mg QAM KENNETH Administration Glucagon 1 mg 02/17/25 21:35 Glucagon For Inj 1 Mg Vial IM PRN PRN Hypoglycemia Protocol Glucose 15 gm 02/17/25 21:35 Glucose Oral Gel 15 Gm Of Glucse In 37.5 Gm Tube PO PRN PRN Hypoglycemia Protocol Heparin Sodium (Porcine) 5,000 units 02/18/25 14:00 02/20/25 05:33 Heparin Sodium 5,000 Units/Ml Vial SUB-Q 5,000 units Q8HR KENNETH Administration Cefepime HCl 2 gm/ Sodium 50 mls @ 100 mls/hr 02/18/25 06:00 02/20/25 06:23 Chloride IVPB Infused Q12H KENNETH Infusion Fentanyl Citrate 2,500 mcg in 250 mls @ 7.5 mls/hr 02/17/25 20:10 02/20/25 06:00 Fentanyl 2,500 Mcg/Ns 250 Ml IV CONT 75 mcg/hr .[id number] KENNETH 7.5 mls/hr Protocol Titration 75 MCG/HR Midazolam HCl 100 mg in 100 mls @ 1 mls/hr 02/17/25 20:10 02/20/25 06:00 Versed 100 Mg/Ns 100 Ml IV CONT 2 mg/hr .Q72H KENNETH 2 mls/hr Protocol Titration 1 MG/HR Dextrose 1,000 mls @ 100 mls/hr 02/17/25 21:35 Dextrose 5% 1,000 Ml IVPB PRN PRN Hypoglycemia Protocol Phenylephrine HCl 50 mg/ 250 mls @ 24 mls/hr 02/18/25 05:10 02/20/25 06:32 Sodium Chloride IV CONT 80 mcg/min .[id number] KENNETH 24 mls/hr Protocol Titration 80 MCG/MIN Doxycycline Hyclate 100 mg/ 100 mls @ 100 mls/hr 02/18/25 08:00 02/20/25 08:12 Sodium Chloride IVPB 02/23/25 07:59 100 mls/hr Q12H KENNETH Administration Norepinephrine Bitartrate 8 mg in 250 mls @ 0 mls/hr 02/18/25 08:30 02/19/25 12:00 Levophed 8 Mg/D5w 250 Ml IV CONT Infused .Q0M KENNETH Titration Protocol Vancomycin HCl 1,000 mg/ 250 mls @ 250 mls/hr 02/19/25 10:00 02/19/25 23:49 Sodium Chloride IVPB Infused Q12H KENNETH Infusion Potassium Phosphate 40 mmol/ 263.3333 mls @ 43.889 mls/hr 02/20/25 07:18 Sodium Chloride IVPB 02/20/25 13:17 ONCE ONE Insulin Aspart 3 - 6 units 02/18/25 00:00 02/20/25 05:31 Insulin Aspart (*Bkc) 100 Units/Ml SUB-Q Not Given Q4HR KENNETH Protocol Ipratropium [place] 0.5 mg 02/18/25 09:35 02/20/25 08:16 Ipratropium Br 0.02% Inh Soln 0.5 Mg/2.5 Ml Vial INHALATION 0.5 mg Q6HRT KENNETH Administration Levalbuterol HCl 0.63 mg 02/18/25 09:35 02/20/25 08:17 Levalbuterol Neb 1.25 Mg/3 Ml INHALATION 0.63 mg Q6HRT KENNETH Administration Metoclopramide HCl 10 mg 02/19/25 12:00 02/20/25 05:33 Metoclopramide Hcl Inj 10 Mg/2 Ml Vial IV PUSH 10 mg Q6HR KENNETH Administration Multi-Ingred Cream/Lotion/Oil/Oint 1 applic 02/17/25 21:00 02/19/25 21:13 Mineral Oil/White Petrolatum Ointment EACH EYE 1 applic Q12HR KENNETH Administration Pantoprazole Sodium 40 mg 02/18/25 09:00 02/20/25 07:44 Pantoprazole Sodium Iv 40 Mg Vial IV PUSH 40 mg Q12HR KENNETH Administration Perflutren Lipid Microsphere 0 ml 02/18/25 07:28 Perflutren Lipid Microspheres 1.5 Ml Vial Diluted To 10 Ml Total Volume IV PUSH 02/21/25 07:28 ONCE PRN adequate visualization Protocol Senna/Docusate Sodium 1 tab 02/17/25 21:00 02/19/25 21:12 Senna/Docusate Sodium Tablet FEED TUBE 1 tab HS KENNETH Administration Sodium Chloride 10 ml 02/18/25 22:00 02/20/25 05:33 Central Line Flush IV PUSH 10 ml Q8HR KENNETH Administration Sodium Chloride 20 ml 02/18/25 16:07 02/20/25 05:33 Central Line Flush IV PUSH 20 ml PRN PRN Administration after blood draws Thiamine HCl 100 mg 02/19/25 09:00 02/20/25 07:44 Thiamine Hcl 200 Mg/2 Ml Vial IV PUSH 100 mg QAM KENNETH Administration Radiology Results: ITS Impressions Head CT 02/17/25 16:55 IMPRESSION: 1. No acute intracranial hemorrhage. No mass effect. 2. Probable chronic ischemic white matter change. Chest/Abdomen/Pelvis CT 02/17/25 17:11 IMPRESSION: 1. Moderate sized groundglass opacities scattered throughout both lungs most prominent in the lower lobes. In addition, there are small to moderate sized patchy consolidations scattered throughout both lungs most prominent in the lower lobes. The findings are concerning for multilobar pneumonia. Other etiologies are possible but are felt to be less likely. Recommend follow-up to resolution. 2.There is a Daniels catheter in the bladder. Mild concentric thickening of the calvo of the bladder. Small amount of nondependent air in the bladder which may be due to recent instrumentation or cystitis. 3. Large amount of stool in the rectum. 4. The stomach is distended and filled with air. 5. Small amount of fat stranding with a few locules of air about the posterior aspect of the mid and distal sacrum. No obvious loculated fluid collection identified. No convincing CT evidence for sacral osteomyelitis at this time. Abdomen X-Ray 02/17/25 20:22 IMPRESSION: 1. Endotracheal tube and nasogastric tubes in expected position. 2. Patchy bilateral airspace opacities consistent with multifocal pneumonia. Abdomen Ultrasound 02/19/25 13:00 Impression: Limited study. No acute process Labs Labs: Laboratory Results - last 24 hr 02/19/25 02/19/25 02/19/25 07:51 12:17 16:16 WBC RBC Hgb Hct MCV MCH MCHC RDW Plt Count MPV Immature Gran % (Auto) Neut % (Auto) Lymph % (Auto) [place] % (Auto) Eos % (Auto) Baso % (Auto) Lymph # (Auto) [place] # (Auto) Eos # (Auto) Baso # (Auto) Abs Immat Gran (auto) Absolute Neuts (auto) Absolute Nucleated RBC Nucleated RBC % Puncture Site ABG pH ABG pCO2 ABG pO2 ABG PO2/FiO2 Ratio ABG HCO3 ABG O2 Saturation ABG O2 Content ABG Base Excess A-a Gradient Oxyhemoglobin Carboxyhemoglobin Methemoglobin Reduced Hemoglobin Total Hemoglobin O2 Delivery Device O2 Liters/Min Minute Volume Vent Rate Vent Mode FiO2 Tidal Volume PEEP Peak Inspir Pressure Pressure Support Sodium Potassium Chloride Carbon Dioxide Anion Gap BUN Creatinine Estim Creat Clear Calc Estimated GFR Glucose POC Capillary Glucose 82 113 H Lactic Acid Calcium Phosphorus Magnesium Total Bilirubin AST ALT Alkaline Phosphatase Total Creatine Kinase Total Protein Albumin Urine Eosinophils Random Vancomycin < 5.0 L Hepatitis A IgM Ab Negative Hep Bs Antigen Negative Hep B Core IgM Ab Negative Hepatitis C Ab Screen Negative 02/19/25 02/20/25 02/20/25 22:07 00:09 04:41 WBC RBC Hgb Hct MCV MCH MCHC RDW Plt Count MPV Immature Gran % (Auto) Neut % (Auto) Lymph % (Auto) [place] % (Auto) Eos % (Auto) Baso % (Auto) Lymph # (Auto) [place] # (Auto) Eos # (Auto) Baso # (Auto) Abs Immat Gran (auto) Absolute Neuts (auto) Absolute Nucleated RBC Nucleated RBC % Puncture Site ABG pH ABG pCO2 ABG pO2 ABG PO2/FiO2 Ratio ABG HCO3 ABG O2 Saturation ABG O2 Content ABG Base Excess A-a Gradient Oxyhemoglobin Carboxyhemoglobin Methemoglobin Reduced Hemoglobin Total Hemoglobin O2 Delivery Device O2 Liters/Min Minute Volume Vent Rate Vent Mode FiO2 Tidal Volume PEEP Peak Inspir Pressure Pressure Support Sodium Potassium Chloride Carbon Dioxide Anion Gap BUN Creatinine Estim Creat Clear Calc Estimated GFR Glucose POC Capillary Glucose 118 H 119 H 100 Lactic Acid Calcium Phosphorus Magnesium Total Bilirubin AST ALT Alkaline Phosphatase Total Creatine Kinase Total Protein Albumin Urine Eosinophils Random Vancomycin Hepatitis A IgM Ab Hep Bs Antigen Hep B Core IgM Ab Hepatitis C Ab Screen 02/20/25 02/20/25 02/20/25 05:12 05:23 07:58 WBC 22.8 H RBC 3.63 L Hgb 9.6 L Hct 30.2 L MCV 83.2 MCH 26.4 MCHC 31.8 L RDW 17.0 H Plt Count 227 MPV 9.2 Immature Gran % (Auto) 1.0 H Neut % (Auto) 92.6 H Lymph % (Auto) 2.9 L [place] % (Auto) 2.9 Eos % (Auto) 0.0 Baso % (Auto) 0.6 Lymph # (Auto) 0.67 L [place] # (Auto) 0.7 H Eos # (Auto) 0.0 Baso # (Auto) 0.1 Abs Immat Gran (auto) 0.23 H Absolute Neuts (auto) 21.0 H Absolute Nucleated RBC 0.040 H Nucleated RBC % 0.2 Puncture Site Right radial ABG pH 7.287 L* ABG pCO2 31.1 L ABG pO2 101.3 H ABG PO2/FiO2 Ratio 2.03 ABG HCO3 14.5 L ABG O2 Saturation 97.1 ABG O2 Content 14.2 L ABG Base Excess -11.0 A-a Gradient 220.2 Oxyhemoglobin 97.3 Carboxyhemoglobin 0.0 Methemoglobin 0.2 Reduced Hemoglobin 2.5 Total Hemoglobin 10.3 L O2 Delivery Device Ventilator O2 Liters/Min Not Reportable Minute Volume Not Reportable Vent Rate 22 Vent Mode Cmv FiO2 50 Tidal Volume 450 PEEP 10 Peak Inspir Pressure Not Reportable Pressure Support Not Reportable Sodium 154 H Potassium 2.9 L Chloride 120 H Carbon Dioxide 17 L Anion Gap 17 H BUN 21 H Creatinine 0.65 L Estim Creat Clear Calc 87 Estimated GFR > 60 Glucose 114 H POC Capillary Glucose Lactic Acid 1.1 Calcium 9.1 Phosphorus 1.6 L Magnesium 1.9 Total Bilirubin 0.9 AST 187 H ALT 225 H Alkaline Phosphatase 269 H Total Creatine Kinase 99 Total Protein 5.9 L Albumin 3.1 L Urine Eosinophils Rare Random Vancomycin Hepatitis A IgM Ab Hep Bs Antigen Hep B Core IgM Ab Hepatitis C Ab Screen Quality VTE Prophylaxis VTE prophylaxis: pharmacologic ordered
[2025-02-20] MEDS: POTASSIUM PHOS,M-BASIC-D-BASIC 40 MMOL in SODIUM CHLORIDE 0.9% IV 250 ML 43.89 MMOL IVPB ×2 (08:25→18:46)
[2025-02-20] MEDS: MINERAL OIL/WHITE PETROLATUM OINTMENT 1 APPLIC EACH EYE ×2 (09:29→20:16)
[2025-02-20] MEDS: FOLIC ACID 1 MG/0.2 ML INJ IV PUSH (09:55)
[2025-02-20] MEDS: VANCOMYCIN HCL 1,000 MG in SODIUM CHLORIDE 0.9% IV 250 ML 250 MG IVPB (09:55)
--- NOTE | 2025-02-20 10:07 | WPDURCON ---
Assessment and Plan Assessment and plan (1) Suprapubic catheter: Code(s): Z93.59 - Other cystostomy status Status: Acute Assessment and Plan: Chronic s/p cahteter - changed in ER. Currently draining well and irrigates normally. I've placed more fluid in balloon put catheter on traction to see if that helps with drainage around insertion site. Urology Consult Note HPI Date Seen: 02/20/25 Requesting Physician: Remington Peterson MD Primary Care Provider: UNKNOWN,DOCTOR Consult Narrative Narrative: Toni Gates is a 64 year old male unknown to our practice, resident of long-term with apparent chronic indwelling suprapubic catheter. Now leaking urine around catheter insertion site. Admitted with mental status changes and required emergent intubation. Review of Systems Review of Systems: ROS unobtainable: Yes unobtainable due to medical condition PMFSH Past Medical History Medical History (Updated 02/20/25 @ 10:11 by José Miguel Eaton MD) History of left heart catheterization Elevated lipids Diabetes Asthma Arthritis Surgical History Surgical History History of lumbosacral spine surgery Family History Family History Mother Family history of primary malignant neoplasm of liver, Onset Age: 69 Social History Social History Smoking status: Former smoker Alcohol intake: never Substance use: never Lack of Transportation: No Lack of Food: Never True Current Housing: I Have Housing Concerned About Future Housing: No Difficulty Paying Gas/Electric Bills: No Difficulty Paying for Meds: No Currently Unemployed: No Education: Grade School Difficulty w/ Childcare or Family Care: No Spiritual care concerns: No Meds Home Medications and Allergies Home Medications ?Medication ?Instructions ?Recorded ?Confirmed ?Type aspirin 81 mg tablet,delayed 81 mg PO DAILY 06/01/19 02/18/25 History release cyclobenzaprine 10 mg tablet 10 mg PO Q8H 06/01/19 02/18/25 History metformin 1,000 mg tablet 1,000 mg PO BID 06/01/19 02/18/25 History insulin glargine 100 unit/mL (3 20 unit subcut HS 01/05/20 02/18/25 History mL) subcutaneous pen (Lantus Solostar U-100 Insulin) acetaminophen 500 mg tablet 1,000 mg PO Q6H PRN pain 02/18/25 02/18/25 History albuterol sulfate 90 mcg/actuation 2 inh inhalation Q6H PRN shortness 02/18/25 02/18/25 History breath activated powder of breath inhaler,sensor (Proair Digihaler) ascorbic acid (vitamin C) 500 mg 500 mg PO DAILY 02/18/25 02/18/25 History tablet docusate sodium 100 mg tablet 100 mg PO BID 02/18/25 02/18/25 History docusate sodium 100 mg tablet 100 mg PO Q12H PRN constipation 02/18/25 02/18/25 History empagliflozin 25 mg tablet 25 mg PO DAILY 02/18/25 02/18/25 History (Jardiance) ergocalciferol (vitamin D2) 50 mcg 50 mcg PO DAILY 02/18/25 02/18/25 History (2,000 unit) tablet ferrous sulfate 325 mg (65 mg 325 mg PO DAILY 02/18/25 02/18/25 History iron) tablet (Xiomy-Time) fluticasone propionate 50 2 spray intranasal DAILY 02/18/25 02/18/25 History mcg/actuation nasal spray,suspension melatonin 3 mg tablet 3 mg PO HS PRN insomnia 02/18/25 02/18/25 History multivitamin with iron-mineral 1 tablet PO DAILY 02/18/25 02/18/25 History nifedipine 30 mg tablet,extended 30 mg PO .qday 02/18/25 02/18/25 History release 24 hr ropinirole 1 mg tablet 1 mg PO DAILY 02/18/25 02/18/25 History Allergies Allergy/AdvReac Type Severity Reaction Status Date / Time codeine Allergy Unknown Unknown Verified 12/16/24 18:40 Vital Signs Vital Signs - 24 hr 02/19/25 10:56 02/19/25 10:58 02/19/25 11:00 Temperature Pulse Rate 106 H 106 H 106 H Respiratory Rate Blood Pressure 94/69 L 94/69 L Pulse Oximetry 97 Oxygen Delivery Mechanical Ventilation Fraction of Inspired Oxygen 50 02/19/25 11:00 02/19/25 11:02 02/19/25 11:02 Temperature Pulse Rate 106 H 106 H 106 H Respiratory Rate 22 H 22 H 22 H Blood Pressure 85/66 L Pulse Oximetry 98 Oxygen Delivery Fraction of Inspired Oxygen 02/19/25 11:04 02/19/25 11:04 02/19/25 11:15 Temperature Pulse Rate 106 H 106 H 108 H Respiratory Rate 22 H 22 H Blood Pressure 100/69 Pulse Oximetry Oxygen Delivery Fraction of Inspired Oxygen 02/19/25 12:00 02/19/25 12:00 02/19/25 12:00 Temperature 98.1 F Pulse Rate 114 H Respiratory Rate 22 H Blood Pressure 98/69 L Pulse Oximetry 98 98 Oxygen Delivery Mechanical Ventilation Fraction of Inspired Oxygen 50 50 02/19/25 12:00 02/19/25 12:00 02/19/25 12:00 Temperature Pulse Rate 114 H 114 H 114 H Respiratory Rate 22 H 22 H Blood Pressure 98/69 L Pulse Oximetry Oxygen Delivery Fraction of Inspired Oxygen 02/19/25 12:00 02/19/25 12:00 02/19/25 13:00 Temperature 98.8 F Pulse Rate 114 H 112 H 116 H Respiratory Rate 21 H Blood Pressure 98/69 L 103/70 Pulse Oximetry 96 Oxygen Delivery Fraction of Inspired Oxygen 02/19/25 13:54 02/19/25 13:58 02/19/25 14:00 Temperature Pulse Rate 114 H 119 H 116 H Respiratory Rate 22 H Blood Pressure Pulse Oximetry 98 Oxygen Delivery Mechanical Ventilation Fraction of Inspired Oxygen 50 02/19/25 14:00 02/19/25 14:00 02/19/25 14:00 Temperature Pulse Rate 116 H 116 H 116 H Respiratory Rate 22 H 22 H Blood Pressure 117/79 117/79 Pulse Oximetry 97 Oxygen Delivery Fraction of Inspired Oxygen 02/19/25 14:03 02/19/25 14:25 02/19/25 15:00 Temperature Pulse Rate 119 H 116 H 116 H Respiratory Rate 23 H 22 H 22 H Blood Pressure 102/67 Pulse Oximetry 98 Oxygen Delivery Fraction of Inspired Oxygen 02/19/25 15:38 02/19/25 15:50 02/19/25 15:58 Temperature Pulse Rate 115 H 115 H Respiratory Rate Blood Pressure 101/68 101/68 Pulse Oximetry Oxygen Delivery Fraction of Inspired Oxygen 50 02/19/25 16:00 02/19/25 16:00 02/19/25 16:00 Temperature 98.4 F Pulse Rate 115 H 115 H 115 H Respiratory Rate 23 H 22 H Blood Pressure 111/77 111/77 Pulse Oximetry 98 Oxygen Delivery Fraction of Inspired Oxygen 02/19/25 16:00 02/19/25 16:00 02/19/25 16:00 Temperature Pulse Rate 115 H 120 H Respiratory Rate 22 H Blood Pressure Pulse Oximetry 98 Oxygen Delivery Mechanical Ventilation Fraction of Inspired Oxygen 50 02/19/25 16:30 02/19/25 17:00 02/19/25 18:00 Temperature Pulse Rate 117 H 116 H 116 H Respiratory Rate 22 H Blood Pressure 108/72 Pulse Oximetry 97 98 Oxygen Delivery Mechanical Ventilation Fraction of Inspired Oxygen 50 02/19/25 18:00 02/19/25 18:00 02/19/25 18:00 Temperature Pulse Rate 116 H 116 H 116 H Respiratory Rate 24 H 24 H Blood Pressure 104/65 Pulse Oximetry Oxygen Delivery Fraction of Inspired Oxygen 02/19/25 18:00 02/19/25 19:00 02/19/25 19:15 Temperature 98.6 F Pulse Rate 116 H 120 H 118 H Respiratory Rate 23 H 24 H 22 H Blood Pressure 104/65 109/77 105/72 Pulse Oximetry 98 98 99 Oxygen Delivery Fraction of Inspired Oxygen 02/19/25 19:16 02/19/25 19:30 02/19/25 19:31 Temperature Pulse Rate 118 H 117 H 117 H Respiratory Rate 23 H 23 H 24 H Blood Pressure 108/71 Pulse Oximetry 99 98 98 Oxygen Delivery Fraction of Inspired Oxygen 02/19/25 19:45 02/19/25 19:46 02/19/25 19:53 Temperature Pulse Rate 119 H 119 H 117 H Respiratory Rate 25 H 24 H Blood Pressure 114/78 Pulse Oximetry 98 99 100 Oxygen Delivery Mechanical Ventilation Fraction of Inspired Oxygen 50 02/19/25 19:53 02/19/25 19:58 02/19/25 20:00 Temperature Pulse Rate 117 H 119 H 117 H Respiratory Rate 23 H 23 H Blood Pressure 108/69 Pulse Oximetry Oxygen Delivery Fraction of Inspired Oxygen 02/19/25 20:00 02/19/25 20:00 02/19/25 20:00 Temperature 100.3 F H Pulse Rate 118 H 117 H Respiratory Rate 22 H Blood Pressure 108/69 Pulse Oximetry 100 Oxygen Delivery Fraction of Inspired Oxygen 50 02/19/25 20:00 02/19/25 20:00 02/19/25 20:00 Temperature Pulse Rate 117 H 117 H 117 H Respiratory Rate 25 H 25 H 22 H Blood Pressure 108/69 Pulse Oximetry 99 Oxygen Delivery Fraction of Inspired Oxygen 02/19/25 20:01 02/19/25 20:15 02/19/25 20:16 Temperature Pulse Rate 117 H 119 H 120 H Respiratory Rate 25 H 26 H 23 H Blood Pressure 106/73 Pulse Oximetry 99 98 98 Oxygen Delivery Fraction of Inspired Oxygen 02/19/25 20:28 02/19/25 20:31 02/19/25 20:34 Temperature Pulse Rate 120 H 121 H 120 H Respiratory Rate 22 H Blood Pressure 106/70 106/70 Pulse Oximetry 99 Oxygen Delivery Fraction of Inspired Oxygen 02/19/25 20:45 02/19/25 20:46 02/19/25 21:00 Temperature Pulse Rate 124 H 124 H 123 H Respiratory Rate 20 21 H 22 H Blood Pressure 115/70 111/72 Pulse Oximetry 99 99 99 Oxygen Delivery Fraction of Inspired Oxygen 02/19/25 21:00 02/19/25 21:00 02/19/25 21:01 Temperature Pulse Rate 123 H 123 H 122 H Respiratory Rate 23 H 21 H 26 H Blood Pressure 111/72 Pulse Oximetry 99 98 98 Oxygen Delivery Mechanical Ventilation Fraction of Inspired Oxygen 50 02/19/25 21:15 02/19/25 21:16 02/19/25 21:30 Temperature Pulse Rate 124 H 124 H 122 H Respiratory Rate 26 H 23 H 22 H Blood Pressure 120/78 111/68 Pulse Oximetry 99 99 99 Oxygen Delivery Fraction of Inspired Oxygen 02/19/25 21:31 02/19/25 21:45 02/19/25 21:46 Temperature Pulse Rate 122 H 119 H 119 H Respiratory Rate 23 H 23 H 23 H Blood Pressure 110/71 Pulse Oximetry 99 99 99 Oxygen Delivery Fraction of Inspired Oxygen 02/19/25 22:00 02/19/25 22:00 02/19/25 22:00 Temperature Pulse Rate 118 H 118 H 121 H Respiratory Rate 22 H Blood Pressure 109/75 117/73 Pulse Oximetry 100 Oxygen Delivery Fraction of Inspired Oxygen 02/19/25 22:00 02/19/25 22:00 02/19/25 22:00 Temperature Pulse Rate 118 H 118 H 118 H Respiratory Rate 23 H 23 H 23 H Blood Pressure 109/75 Pulse Oximetry 99 Oxygen Delivery Fraction of Inspired Oxygen 02/19/25 22:01 02/19/25 22:15 02/19/25 22:16 Temperature Pulse Rate 118 H 123 H 123 H Respiratory Rate 23 H 21 H 25 H Blood Pressure 125/77 Pulse Oximetry 99 100 100 Oxygen Delivery Fraction of Inspired Oxygen 02/19/25 22:30 02/19/25 22:38 02/19/25 22:45 Temperature Pulse Rate 121 H 121 H 119 H Respiratory Rate 26 H 22 H Blood Pressure 117/73 103/64 Pulse Oximetry 99 99 Oxygen Delivery Fraction of Inspired Oxygen 02/19/25 22:46 02/19/25 23:00 02/19/25 23:00 Temperature Pulse Rate 119 H 118 H 118 H Respiratory Rate 23 H 22 H Blood Pressure 97/69 L Pulse Oximetry 99 99 98 Oxygen Delivery Mechanical Ventilation Fraction of Inspired Oxygen 50 02/19/25 23:00 02/19/25 23:01 02/19/25 23:17 Temperature Pulse Rate 117 H 117 H 116 H Respiratory Rate 18 17 18 Blood Pressure 97/69 L Pulse Oximetry 99 99 99 Oxygen Delivery Fraction of Inspired Oxygen 02/19/25 23:30 02/19/25 23:31 02/19/25 23:45 Temperature Pulse Rate 116 H 116 H 115 H Respiratory Rate 18 17 23 H Blood Pressure 103/69 102/69 Pulse Oximetry 99 99 99 Oxygen Delivery Fraction of Inspired Oxygen 02/19/25 23:46 02/19/25 23:48 02/20/25 00:00 Temperature Pulse Rate 115 H 115 H 120 H Respiratory Rate 21 H 23 H 23 H Blood Pressure Pulse Oximetry 99 Oxygen Delivery Fraction of Inspired Oxygen 02/20/25 00:00 02/20/25 00:00 02/20/25 00:00 Temperature Pulse Rate 118 H 130 H Respiratory Rate 23 H Blood Pressure Pulse Oximetry 100 Oxygen Delivery Mechanical Ventilation Fraction of Inspired Oxygen 50 50 02/20/25 00:00 02/20/25 00:09 02/20/25 00:15 Temperature 98.4 F Pulse Rate 120 H 118 H 117 H Respiratory Rate 23 H 16 18 Blood Pressure 118/77 109/68 Pulse Oximetry 100 100 100 Oxygen Delivery Fraction of Inspired Oxygen 02/20/25 00:16 02/20/25 00:30 02/20/25 00:31 Temperature Pulse Rate 117 H 115 H 114 H Respiratory Rate 17 18 17 Blood Pressure 102/69 Pulse Oximetry 100 100 99 Oxygen Delivery Fraction of Inspired Oxygen 02/20/25 00:45 02/20/25 00:47 02/20/25 01:00 Temperature Pulse Rate 114 H 114 H 113 H Respiratory Rate 17 16 22 H Blood Pressure 103/69 105/67 Pulse Oximetry 100 100 100 Oxygen Delivery Fraction of Inspired Oxygen 02/20/25 01:00 02/20/25 01:00 02/20/25 01:00 Temperature Pulse Rate 113 H 113 H 113 H Respiratory Rate 16 23 H Blood Pressure 105/67 Pulse Oximetry 100 100 Oxygen Delivery Mechanical Ventilation Fraction of Inspired Oxygen 50 02/20/25 01:01 02/20/25 01:06 02/20/25 01:15 Temperature Pulse Rate 113 H 107 H 114 H Respiratory Rate 16 23 H 17 Blood Pressure 99/68 L Pulse Oximetry 100 99 Oxygen Delivery Fraction of Inspired Oxygen 02/20/25 01:16 02/20/25 01:30 02/20/25 01:31 Temperature Pulse Rate 114 H 115 H 115 H Respiratory Rate 18 16 16 Blood Pressure 104/67 Pulse Oximetry 99 100 100 Oxygen Delivery Fraction of Inspired Oxygen 02/20/25 01:38 02/20/25 01:46 02/20/25 01:51 Temperature Pulse Rate 120 H 119 H 120 H Respiratory Rate 18 Blood Pressure 118/74 118/74 Pulse Oximetry 100 Oxygen Delivery Fraction of Inspired Oxygen 02/20/25 02:00 02/20/25 02:00 02/20/25 02:02 Temperature Pulse Rate 117 H 117 H 118 H Respiratory Rate 23 H 18 Blood Pressure 107/82 Pulse Oximetry 99 99 Oxygen Delivery Fraction of Inspired Oxygen 02/20/25 02:05 02/20/25 02:06 02/20/25 03:00 Temperature Pulse Rate 118 H 117 H 114 H Respiratory Rate 23 H 23 H 22 H Blood Pressure 104/68 Pulse Oximetry 100 Oxygen Delivery Fraction of Inspired Oxygen 02/20/25 04:00 02/20/25 04:00 02/20/25 04:00 Temperature Pulse Rate 113 H 113 H 113 H Respiratory Rate 22 H 22 H Blood Pressure 103/69 Pulse Oximetry 100 Oxygen Delivery Fraction of Inspired Oxygen 02/20/25 04:00 02/20/25 04:00 02/20/25 04:00 Temperature Pulse Rate 113 H 113 H Respiratory Rate 22 H Blood Pressure 103/69 Pulse Oximetry 100 Oxygen Delivery Mechanical Ventilation Fraction of Inspired Oxygen 50 02/20/25 04:00 02/20/25 05:00 02/20/25 05:02 Temperature 98.3 F Pulse Rate 117 H 117 H Respiratory Rate 23 H Blood Pressure 116/74 116/74 Pulse Oximetry 100 Oxygen Delivery Fraction of Inspired Oxygen 50 02/20/25 05:35 02/20/25 06:00 02/20/25 06:00 Temperature Pulse Rate 115 H 111 H 111 H Respiratory Rate 22 H Blood Pressure 104/66 Pulse Oximetry 100 100 Oxygen Delivery Mechanical Ventilation Fraction of Inspired Oxygen 50 02/20/25 06:00 02/20/25 06:00 02/20/25 06:23 Temperature Pulse Rate 111 H 111 H 110 H Respiratory Rate 22 H 22 H Blood Pressure 104/66 Pulse Oximetry Oxygen Delivery Fraction of Inspired Oxygen 02/20/25 06:32 02/20/25 08:00 02/20/25 08:00 Temperature Pulse Rate 118 H 107 H 107 H Respiratory Rate 24 H Blood Pressure 113/77 Pulse Oximetry 99 Oxygen Delivery Mechanical Ventilation Fraction of Inspired Oxygen 45 02/20/25 08:00 02/20/25 08:00 02/20/25 08:00 Temperature Pulse Rate 106 H 106 H Respiratory Rate 24 H Blood Pressure 97/65 L Pulse Oximetry Oxygen Delivery Fraction of Inspired Oxygen 45 02/20/25 08:00 02/20/25 08:17 02/20/25 08:26 Temperature Pulse Rate 106 H 106 H 107 H Respiratory Rate 24 H 24 H Blood Pressure Pulse Oximetry 99 Oxygen Delivery Mechanical Ventilation Fraction of Inspired Oxygen 40 Exam Const: General: no acute distress Resp: Effort & Inspection: normal respiratory effort GI: Inspection: non-distended GI Palp: No abdominal tenderness and No Guarding due to palpation present (GI) Auscultation: normal bowel sounds Urinary Catheter: Urinary Catheter: patent and draining and urine clear Results Labs 02/20/25 05:12 02/20/25 05:12 Labs: Short CBC 02/20/25 Range/Units 05:12 WBC 22.8 H (4.5-10.0) K/mm3 Hgb 9.6 L (14.0-18.0) g/dL Hct 30.2 L (42.0-52.0) % Plt Count 227 (150-375) k/mm3 BMP 02/20/25 05:12 Sodium 154 H Potassium 2.9 L Chloride 120 H Carbon Dioxide 17 L BUN 21 H Creatinine 0.65 L Glucose 114 H Calcium 9.1 Cardiac Enzymes 02/20/25 Range/Units 05:12 Total Creatine Kinase 99 (55-170) U/L Liver Function 02/20/25 Range/Units 05:12 Total Bilirubin 0.9 (0.2-1.3) mg/dL AST 187 H (17-59) U/L ALT 225 H (6-50) U/L Alkaline Phosphatase 269 H (38-126) U/L Albumin 3.1 L (3.5-5.1) g/dL
[2025-02-20] MEDS: DEXTROSE 5% 1,000 ML 1,000 ML 125 ML IV CONT ×2 (10:18→18:34)
--- NOTE | 2025-02-20 10:24 | PM.CNNEP ---
Assessment and Plan Assessment and plan (1) Polyuria: Code(s): R35.89 - Other polyuria Status: Acute Assessment and Plan: the patient has polyuria. Typically 1 would expect urine output to be low and hypotensive. The fact that he maintain his large urine output suggests some sort of diuretic affect. Osmolar diuresis would be included in the differential. However his BUN is okay, and patient is not getting TPN. He is getting some tube feedings but these are at very low levels. He was on empagliflozin before admission and his urine had glucose in it and he may have had high sugars before admission which all could contribute to polyuria but the medicine was stopped and his sugars have been well controlled in the hospital so I doubt if he still has sugar in the urine. We can recheck a UA just to be sure. diabetes insipidus could be the case. It could be central if he had a very strategic small stroke ( he already had a head CT really get a larger stroke or large mass) and an MRI of the brain would be indicated when he is in better shape. We can check a urine sodium and osmolality now to look at this once these have been drawn then consider a trial of vasopressin. I want to be sure that the urinalysis is negative first. if he responded to the vasopressin then that would make us lean toward central diabetes insipidus. in the meantime his sodium level is quite high. So will give him D5W to bring the sodium level down. He a has a 3.8L free water deficit so will give him 125cc an hour. Because he does have a high urine output he may need a higher rate but just because he is somewhat delicate right now will start with 125 an hour. long discussion with his nurse and with Dr. Naylor (2) Metabolic acidosis: Code(s): E87.20 - Acidosis, unspecified Status: Acute Assessment and Plan: The patient has metabolic acidosis. His anion gap is 17. Back in November his anion gap was 10 which I assume is his baseline. He started out with a very high anion gap of 28 and therefor a delta anion gap of 18, and at that point his lactic acid level was 2 point so that I explained to some not all of the delta anion gap. his lactic acid level has improved to normal but his anion gap still is at 17, far above his baseline anion gap. His bicarbonate level was 7 on admission for a delta bicarb of 18 which was the same as his anion gap so this was a pure high anion gap metabolic acidosis now his bicarb level is 17 and so the delta anion gap is still equal to the delta bicarb. His blood gases show an appropriate response of his ventilation the anion gap as the last 2 digits of his pH is about equal to the pCO2 ( whether he is driving this or if it is the vent settings is unclear but at least it is appropriate.) The cause of the anion gap is unclear. It is unlikely he has a toxic alcohol and obviously did not receive paraldahyde. Lactic acid is now normal. we can check a beta hydroxybutyrate but I think this is going to be normal as well. Notably he did have 3+ ketones in his urine on admission but this was more likely starvation ketosis rather than DKA, because his sugars were not very high. Starvation ketosis generally only contributes a small amount to the anion gap). I think it is possible that he had renal failure. His baseline creatinine is only 0.39. His muscle mass is very poor and so his serum creatinine probably far underestimates his kidney function. On admission his creatinine was quadruple his baseline and so he might have had an anion gap of from his renal insufficiency. This has improved management of his sepsis hypotension and dehydration. will check a 24hour urine creatinine to evaluate this. (3) Hypernatremia: Code(s): E87.0 - Hyperosmolality and hypernatremia Status: Acute Assessment and Plan: Sodium level has crept up during the hospital stay. It is possible that he has diabetes insipidus as above. Sometimes people can have a mild form of this for a long period of time and they just drink water to keep their sodium level normal, thirst threshold. Then when sick the free water intake decreases in the sodium rises. (4) Septic shock: Code(s): A41.9 - Sepsis, unspecified organism; R65.21 - Severe sepsis with septic shock Status: Acute (5) Hypokalemia: Code(s): E87.6 - Hypokalemia Status: Acute Assessment and Plan: Patient's potassium and phosphorus are both low. I agree that this is likely from refeeding. These need to be corrected before we actively correct the metabolic acidosis as the latter issue is less important at this point. Once they are corrected we can add some bicarbonate to the mix. (6) Glucosuria: Code(s): R81 - Glycosuria Status: Acute Assessment and Plan: he was on empagliflozin. Will see if his urinary sugars are better off of this medicine. (7) Diabetes: Code(s): E11.9 - Type 2 diabetes mellitus without complications Status: Acute Assessment and Plan: control per cancer genetic counselor/hospitalist. It might be prudent to stay off of metformin going forward (8) Elevated lipids: Code(s): E78.5 - Hyperlipidemia, unspecified Status: Acute Assessment and Plan: the patient is not on a statin (9) Hypertension: Code(s): I10 - Essential (primary) hypertension Status: Acute Assessment and Plan: blood pressure meds have been held (10) Anemia: Code(s): D64.9 - Anemia, unspecified Status: Acute Assessment and Plan: Will follow this. Consider Epogen if his hemoglobin drops too much History of Present Illness Reason for Consult Consult date: 02/20/25 Chief Complaint Chief complaint: Multifocal Pneumonia History of Present Illness Narrative: Toni is a unfortunate 64-year-old gentleman who lives in a nursing, and has multiple medical issues including hyperlipidemia, diabetes, asthma, arthritis, COPD, vitamin-D deficiency, anemia, hypertension, and restless legs. The patient came into the hospital because of altered mental status. He was found by [facility] staff to have change in mental status but also to be short of breath. He was sent to the ER. In the ER he was evaluated and found to be more short of breath. He was intubated and sent to the ICU. His blood pressure was low. He did not have IV access so he was placed on Toan-Synephrine peripheral and then when a central line was placed this was continued. he was also given IV fluid such that his intake/ output was positive.His blood pressure has been better since then , and his Toan-Synephrine dose has been gradually reduced. he is assumed to have sepsis. He did have a temperature of a 101.9 at one point. His white cell count was high on admission and has improved. His blood cultures are negative. His urine culture did show Gram-negative bacilli but he has a suprapubic catheter and so this could be colonization. Sputum cultures are pending. He is on antibiotics. His fever has come down, his white cell count has improved and hemodynamically he is better. He has been making lots of urine. He has a suprapubic catheter which sometimes is labeled Daniels and sometimes abdominal drain but certainly all of the urine comes from the bladder. His urine output was 2400 3 days ago, 5L 2 days ago, 3500 yesterday and 913 today so far. That is all without diuretics. He was also while he was hypotensive and on pressors. his sugars have been okay. His BUN has not been very high. He is not getting any mannitol or TPN. He has no history of lithium intake. He was on Jardiance before admission but this has not been continued. He had 3+ glucose in his urine on admission and his blood sugar was 284 but it has been well controlled since then. He has no history of lithium use in the past documented in the records. His creatinine In 2020 was 0.87. However he has lost a massive amount of weight and is severely malnourished. In November of this year his creatinine was down to 0.38. On admission this time his creatinine was 1.29 and has improved to 0.65. his bicarbonate was very low and he was admitted at 7. It improved to the mid teens and has stalled there. His anion gap was very high at admission as well. His lactic acid level was high on admit at 2.8. His sodium level has risen. It was normal on admission at 1:40 a.m. to in his gradually increased over the last 3 days Review of Systems Review of Systems: ROS unobtainable: Yes unobtainable due to endotracheal tube, unobtainable due to medical condition and unobtainable due to mental status [facility] Past Medical History Medical History History of left heart catheterization Elevated lipids Diabetes Asthma Arthritis Surgical History Surgical History History of lumbosacral spine surgery Family History Family History Mother Family history of primary malignant neoplasm of liver, Onset Age: 69 Social History Social History Smoking status: Former smoker Alcohol intake: never Substance use: never Lack of Transportation: No Lack of Food: Never True Current Housing: I Have Housing Concerned About Future Housing: No Difficulty Paying Gas/Electric Bills: No Difficulty Paying for Meds: No Currently Unemployed: No Education: Grade School Difficulty w/ Childcare or Family Care: No Spiritual care concerns: No Meds Home Medications and Allergies Home Medications ?Medication ?Instructions ?Recorded ?Confirmed ?Type aspirin 81 mg tablet,delayed 81 mg PO DAILY 06/01/19 02/18/25 History release cyclobenzaprine 10 mg tablet 10 mg PO Q8H 06/01/19 02/18/25 History metformin 1,000 mg tablet 1,000 mg PO BID 06/01/19 02/18/25 History insulin glargine 100 unit/mL (3 20 unit subcut HS 01/05/20 02/18/25 History mL) subcutaneous pen (Lantus Solostar U-100 Insulin) acetaminophen 500 mg tablet 1,000 mg PO Q6H PRN pain 02/18/25 02/18/25 History albuterol sulfate 90 mcg/actuation 2 inh inhalation Q6H PRN shortness 02/18/25 02/18/25 History breath activated powder of breath inhaler,sensor (Proair Digihaler) ascorbic acid (vitamin C) 500 mg 500 mg PO DAILY 02/18/25 02/18/25 History tablet docusate sodium 100 mg tablet 100 mg PO BID 02/18/25 02/18/25 History docusate sodium 100 mg tablet 100 mg PO Q12H PRN constipation 02/18/25 02/18/25 History empagliflozin 25 mg tablet 25 mg PO DAILY 02/18/25 02/18/25 History (Jardiance) ergocalciferol (vitamin D2) 50 mcg 50 mcg PO DAILY 02/18/25 02/18/25 History (2,000 unit) tablet ferrous sulfate 325 mg (65 mg 325 mg PO DAILY 02/18/25 02/18/25 History iron) tablet (Xiomy-Time) fluticasone propionate 50 2 spray intranasal DAILY 02/18/25 02/18/25 History mcg/actuation nasal spray,suspension melatonin 3 mg tablet 3 mg PO HS PRN insomnia 02/18/25 02/18/25 History multivitamin with iron-mineral 1 tablet PO DAILY 02/18/25 02/18/25 History nifedipine 30 mg tablet,extended 30 mg PO .qday 02/18/25 02/18/25 History release 24 hr ropinirole 1 mg tablet 1 mg PO DAILY 02/18/25 02/18/25 History Allergies Allergy/AdvReac Type Severity Reaction Status Date / Time codeine Allergy Unknown Unknown Verified 12/16/24 18:40 Vital Signs Vital Signs - 24 hr 02/19/25 10:56 02/19/25 10:58 02/19/25 11:00 Temperature Pulse Rate 106 H 106 H 106 H Respiratory Rate Blood Pressure 94/69 L 94/69 L Pulse Oximetry 97 Oxygen Delivery Mechanical Ventilation Fraction of Inspired Oxygen 50 02/19/25 11:00 02/19/25 11:02 02/19/25 11:02 Temperature Pulse Rate 106 H 106 H 106 H Respiratory Rate 22 H 22 H 22 H Blood Pressure 85/66 L Pulse Oximetry 98 Oxygen Delivery Fraction of Inspired Oxygen 02/19/25 11:04 02/19/25 11:04 02/19/25 11:15 Temperature Pulse Rate 106 H 106 H 108 H Respiratory Rate 22 H 22 H Blood Pressure 100/69 Pulse Oximetry Oxygen Delivery Fraction of Inspired Oxygen 02/19/25 12:00 02/19/25 12:00 02/19/25 12:00 Temperature 98.1 F Pulse Rate 114 H Respiratory Rate 22 H Blood Pressure 98/69 L Pulse Oximetry 98 98 Oxygen Delivery Mechanical Ventilation Fraction of Inspired Oxygen 50 50 02/19/25 12:00 02/19/25 12:00 02/19/25 12:00 Temperature Pulse Rate 114 H 114 H 114 H Respiratory Rate 22 H 22 H Blood Pressure 98/69 L Pulse Oximetry Oxygen Delivery Fraction of Inspired Oxygen 02/19/25 12:00 02/19/25 12:00 02/19/25 13:00 Temperature 98.8 F Pulse Rate 114 H 112 H 116 H Respiratory Rate 21 H Blood Pressure 98/69 L 103/70 Pulse Oximetry 96 Oxygen Delivery Fraction of Inspired Oxygen 02/19/25 13:54 02/19/25 13:58 02/19/25 14:00 Temperature Pulse Rate 114 H 119 H 116 H Respiratory Rate 22 H Blood Pressure Pulse Oximetry 98 Oxygen Delivery Mechanical Ventilation Fraction of Inspired Oxygen 50 02/19/25 14:00 02/19/25 14:00 02/19/25 14:00 Temperature Pulse Rate 116 H 116 H 116 H Respiratory Rate 22 H 22 H Blood Pressure 117/79 117/79 Pulse Oximetry 97 Oxygen Delivery Fraction of Inspired Oxygen 02/19/25 14:03 02/19/25 14:25 02/19/25 15:00 Temperature Pulse Rate 119 H 116 H 116 H Respiratory Rate 23 H 22 H 22 H Blood Pressure 102/67 Pulse Oximetry 98 Oxygen Delivery Fraction of Inspired Oxygen 02/19/25 15:38 02/19/25 15:50 02/19/25 15:58 Temperature Pulse Rate 115 H 115 H Respiratory Rate Blood Pressure 101/68 101/68 Pulse Oximetry Oxygen Delivery Fraction of Inspired Oxygen 50 02/19/25 16:00 02/19/25 16:00 02/19/25 16:00 Temperature 98.4 F Pulse Rate 115 H 115 H 115 H Respiratory Rate 23 H 22 H Blood Pressure 111/77 111/77 Pulse Oximetry 98 Oxygen Delivery Fraction of Inspired Oxygen 02/19/25 16:00 02/19/25 16:00 02/19/25 16:00 Temperature Pulse Rate 115 H 120 H Respiratory Rate 22 H Blood Pressure Pulse Oximetry 98 Oxygen Delivery Mechanical Ventilation Fraction of Inspired Oxygen 50 02/19/25 16:30 02/19/25 17:00 02/19/25 18:00 Temperature Pulse Rate 117 H 116 H 116 H Respiratory Rate 22 H Blood Pressure 108/72 Pulse Oximetry 97 98 Oxygen Delivery Mechanical Ventilation Fraction of Inspired Oxygen 50 02/19/25 18:00 02/19/25 18:00 02/19/25 18:00 Temperature Pulse Rate 116 H 116 H 116 H Respiratory Rate 24 H 24 H Blood Pressure 104/65 Pulse Oximetry Oxygen Delivery Fraction of Inspired Oxygen 02/19/25 18:00 02/19/25 19:00 02/19/25 19:15 Temperature 98.6 F Pulse Rate 116 H 120 H 118 H Respiratory Rate 23 H 24 H 22 H Blood Pressure 104/65 109/77 105/72 Pulse Oximetry 98 98 99 Oxygen Delivery Fraction of Inspired Oxygen 02/19/25 19:16 02/19/25 19:30 02/19/25 19:31 Temperature Pulse Rate 118 H 117 H 117 H Respiratory Rate 23 H 23 H 24 H Blood Pressure 108/71 Pulse Oximetry 99 98 98 Oxygen Delivery Fraction of Inspired Oxygen 02/19/25 19:45 02/19/25 19:46 02/19/25 19:53 Temperature Pulse Rate 119 H 119 H 117 H Respiratory Rate 25 H 24 H Blood Pressure 114/78 Pulse Oximetry 98 99 100 Oxygen Delivery Mechanical Ventilation Fraction of Inspired Oxygen 50 02/19/25 19:53 02/19/25 19:58 02/19/25 20:00 Temperature Pulse Rate 117 H 119 H 117 H Respiratory Rate 23 H 23 H Blood Pressure 108/69 Pulse Oximetry Oxygen Delivery Fraction of Inspired Oxygen 02/19/25 20:00 02/19/25 20:00 02/19/25 20:00 Temperature 100.3 F H Pulse Rate 118 H 117 H Respiratory Rate 22 H Blood Pressure 108/69 Pulse Oximetry 100 Oxygen Delivery Fraction of Inspired Oxygen 50 02/19/25 20:00 02/19/25 20:00 02/19/25 20:00 Temperature Pulse Rate 117 H 117 H 117 H Respiratory Rate 25 H 25 H 22 H Blood Pressure 108/69 Pulse Oximetry 99 Oxygen Delivery Fraction of Inspired Oxygen 02/19/25 20:01 02/19/25 20:15 02/19/25 20:16 Temperature Pulse Rate 117 H 119 H 120 H Respiratory Rate 25 H 26 H 23 H Blood Pressure 106/73 Pulse Oximetry 99 98 98 Oxygen Delivery Fraction of Inspired Oxygen 02/19/25 20:28 02/19/25 20:31 02/19/25 20:34 Temperature Pulse Rate 120 H 121 H 120 H Respiratory Rate 22 H Blood Pressure 106/70 106/70 Pulse Oximetry 99 Oxygen Delivery Fraction of Inspired Oxygen 02/19/25 20:45 02/19/25 20:46 02/19/25 21:00 Temperature Pulse Rate 124 H 124 H 123 H Respiratory Rate 20 21 H 22 H Blood Pressure 115/70 111/72 Pulse Oximetry 99 99 99 Oxygen Delivery Fraction of Inspired Oxygen 02/19/25 21:00 02/19/25 21:00 02/19/25 21:01 Temperature Pulse Rate 123 H 123 H 122 H Respiratory Rate 23 H 21 H 26 H Blood Pressure 111/72 Pulse Oximetry 99 98 98 Oxygen Delivery Mechanical Ventilation Fraction of Inspired Oxygen 50 02/19/25 21:15 02/19/25 21:16 02/19/25 21:30 Temperature Pulse Rate 124 H 124 H 122 H Respiratory Rate 26 H 23 H 22 H Blood Pressure 120/78 111/68 Pulse Oximetry 99 99 99 Oxygen Delivery Fraction of Inspired Oxygen 02/19/25 21:31 02/19/25 21:45 02/19/25 21:46 Temperature Pulse Rate 122 H 119 H 119 H Respiratory Rate 23 H 23 H 23 H Blood Pressure 110/71 Pulse Oximetry 99 99 99 Oxygen Delivery Fraction of Inspired Oxygen 02/19/25 22:00 02/19/25 22:00 02/19/25 22:00 Temperature Pulse Rate 118 H 118 H 121 H Respiratory Rate 22 H Blood Pressure 109/75 117/73 Pulse Oximetry 100 Oxygen Delivery Fraction of Inspired Oxygen 02/19/25 22:00 02/19/25 22:00 02/19/25 22:00 Temperature Pulse Rate 118 H 118 H 118 H Respiratory Rate 23 H 23 H 23 H Blood Pressure 109/75 Pulse Oximetry 99 Oxygen Delivery Fraction of Inspired Oxygen 02/19/25 22:01 02/19/25 22:15 02/19/25 22:16 Temperature Pulse Rate 118 H 123 H 123 H Respiratory Rate 23 H 21 H 25 H Blood Pressure 125/77 Pulse Oximetry 99 100 100 Oxygen Delivery Fraction of Inspired Oxygen 02/19/25 22:30 02/19/25 22:38 02/19/25 22:45 Temperature Pulse Rate 121 H 121 H 119 H Respiratory Rate 26 H 22 H Blood Pressure 117/73 103/64 Pulse Oximetry 99 99 Oxygen Delivery Fraction of Inspired Oxygen 02/19/25 22:46 02/19/25 23:00 02/19/25 23:00 Temperature Pulse Rate 119 H 118 H 118 H Respiratory Rate 23 H 22 H Blood Pressure 97/69 L Pulse Oximetry 99 99 98 Oxygen Delivery Mechanical Ventilation Fraction of Inspired Oxygen 50 02/19/25 23:00 02/19/25 23:01 02/19/25 23:17 Temperature Pulse Rate 117 H 117 H 116 H Respiratory Rate 18 17 18 Blood Pressure 97/69 L Pulse Oximetry 99 99 99 Oxygen Delivery Fraction of Inspired Oxygen 02/19/25 23:30 02/19/25 23:31 02/19/25 23:45 Temperature Pulse Rate 116 H 116 H 115 H Respiratory Rate 18 17 23 H Blood Pressure 103/69 102/69 Pulse Oximetry 99 99 99 Oxygen Delivery Fraction of Inspired Oxygen 02/19/25 23:46 02/19/25 23:48 02/20/25 00:00 Temperature Pulse Rate 115 H 115 H 120 H Respiratory Rate 21 H 23 H 23 H Blood Pressure Pulse Oximetry 99 Oxygen Delivery Fraction of Inspired Oxygen 02/20/25 00:00 02/20/25 00:00 02/20/25 00:00 Temperature Pulse Rate 118 H 130 H Respiratory Rate 23 H Blood Pressure Pulse Oximetry 100 Oxygen Delivery Mechanical Ventilation Fraction of Inspired Oxygen 50 50 02/20/25 00:00 02/20/25 00:09 02/20/25 00:15 Temperature 98.4 F Pulse Rate 120 H 118 H 117 H Respiratory Rate 23 H 16 18 Blood Pressure 118/77 109/68 Pulse Oximetry 100 100 100 Oxygen Delivery Fraction of Inspired Oxygen 02/20/25 00:16 02/20/25 00:30 02/20/25 00:31 Temperature Pulse Rate 117 H 115 H 114 H Respiratory Rate 17 18 17 Blood Pressure 102/69 Pulse Oximetry 100 100 99 Oxygen Delivery Fraction of Inspired Oxygen 02/20/25 00:45 02/20/25 00:47 02/20/25 01:00 Temperature Pulse Rate 114 H 114 H 113 H Respiratory Rate 17 16 22 H Blood Pressure 103/69 105/67 Pulse Oximetry 100 100 100 Oxygen Delivery Fraction of Inspired Oxygen 02/20/25 01:00 02/20/25 01:00 02/20/25 01:00 Temperature Pulse Rate 113 H 113 H 113 H Respiratory Rate 16 23 H Blood Pressure 105/67 Pulse Oximetry 100 100 Oxygen Delivery Mechanical Ventilation Fraction of Inspired Oxygen 50 02/20/25 01:01 02/20/25 01:06 02/20/25 01:15 Temperature Pulse Rate 113 H 107 H 114 H Respiratory Rate 16 23 H 17 Blood Pressure 99/68 L Pulse Oximetry 100 99 Oxygen Delivery Fraction of Inspired Oxygen 02/20/25 01:16 02/20/25 01:30 02/20/25 01:31 Temperature Pulse Rate 114 H 115 H 115 H Respiratory Rate 18 16 16 Blood Pressure 104/67 Pulse Oximetry 99 100 100 Oxygen Delivery Fraction of Inspired Oxygen 02/20/25 01:38 02/20/25 01:46 02/20/25 01:51 Temperature Pulse Rate 120 H 119 H 120 H Respiratory Rate 18 Blood Pressure 118/74 118/74 Pulse Oximetry 100 Oxygen Delivery Fraction of Inspired Oxygen 02/20/25 02:00 02/20/25 02:00 02/20/25 02:02 Temperature Pulse Rate 117 H 117 H 118 H Respiratory Rate 23 H 18 Blood Pressure 107/82 Pulse Oximetry 99 99 Oxygen Delivery Fraction of Inspired Oxygen 02/20/25 02:05 02/20/25 02:06 02/20/25 03:00 Temperature Pulse Rate 118 H 117 H 114 H Respiratory Rate 23 H 23 H 22 H Blood Pressure 104/68 Pulse Oximetry 100 Oxygen Delivery Fraction of Inspired Oxygen 02/20/25 04:00 02/20/25 04:00 02/20/25 04:00 Temperature Pulse Rate 113 H 113 H 113 H Respiratory Rate 22 H 22 H Blood Pressure 103/69 Pulse Oximetry 100 Oxygen Delivery Fraction of Inspired Oxygen 02/20/25 04:00 02/20/25 04:00 02/20/25 04:00 Temperature Pulse Rate 113 H 113 H Respiratory Rate 22 H Blood Pressure 103/69 Pulse Oximetry 100 Oxygen Delivery Mechanical Ventilation Fraction of Inspired Oxygen 50 02/20/25 04:00 02/20/25 05:00 02/20/25 05:02 Temperature 98.3 F Pulse Rate 117 H 117 H Respiratory Rate 23 H Blood Pressure 116/74 116/74 Pulse Oximetry 100 Oxygen Delivery Fraction of Inspired Oxygen 50 02/20/25 05:35 02/20/25 06:00 02/20/25 06:00 Temperature Pulse Rate 115 H 111 H 111 H Respiratory Rate 22 H Blood Pressure 104/66 Pulse Oximetry 100 100 Oxygen Delivery Mechanical Ventilation Fraction of Inspired Oxygen 50 02/20/25 06:00 02/20/25 06:00 02/20/25 06:23 Temperature Pulse Rate 111 H 111 H 110 H Respiratory Rate 22 H 22 H Blood Pressure 104/66 Pulse Oximetry Oxygen Delivery Fraction of Inspired Oxygen 02/20/25 06:32 02/20/25 08:00 02/20/25 08:00 Temperature Pulse Rate 118 H 107 H 107 H Respiratory Rate 24 H Blood Pressure 113/77 Pulse Oximetry 99 Oxygen Delivery Mechanical Ventilation Fraction of Inspired Oxygen 45 02/20/25 08:00 02/20/25 08:00 02/20/25 08:00 Temperature Pulse Rate 106 H 106 H Respiratory Rate 24 H Blood Pressure 97/65 L Pulse Oximetry Oxygen Delivery Fraction of Inspired Oxygen 45 02/20/25 08:00 02/20/25 08:17 02/20/25 08:26 Temperature Pulse Rate 106 H 106 H 107 H Respiratory Rate 24 H 24 H Blood Pressure Pulse Oximetry 99 Oxygen Delivery Mechanical Ventilation Fraction of Inspired Oxygen 40 Exam Narrative: Exam Narrative: Well developed very thin male on the ventilator and pressors and sedated in no acute distress Skin is warm and dry without rash Head normocephalic atraumatic Eyes normal sclerae and conjunctivae Mouth normal lips teeth and gums as far as I can see but he is orally intubated. Neck no nodes no thyromegaly no carotid bruits Axillae no nodes Back no CVA tenderness Lungs symmetric and Bilateral coarse upper airway noise to auscultation and normal to percussion Heart regular rate and rhythm without rub or gallop Abdomen bowel sounds positive soft nontender, no HSM, masses, or bruits. a suprapubic tube is present Extremities no cyanosis, clubbing, or edema Pulses 2+ equal in radial arteries Psychological not anxious or depressed Neuro sedated. motor Tone is normal cranial nerves 5,7-12 intact passively and eyes are conjugate 1 a lift is lids; reflexes 2+ and equal in the biceps and patellar tendons cerebellar no tremor, seizure, or myoclonus Results Lab Results 02/20/25 05:12 02/20/25 05:12 Lab results: Most recent lab results ABG pH 7.287 (7.350-7.450) L* 02/20/25 05:23 ABG pCO2 31.1 mmHg (35.0-45.0) L 02/20/25 05:23 ABG pO2 101.3 mmHg (80.0-100.0) H 02/20/25 05:23 ABG HCO3 14.5 mEq/l (22.0-26.0) L 02/20/25 05:23 ABG O2 Saturation 97.1 % (95.0-100.0) 02/20/25 05:23 Calcium 9.1 mg/dL (8.4-10.2) 02/20/25 05:12 Phosphorus 1.6 mg/dL (2.5-4.5) L 02/20/25 05:12 Magnesium 1.9 mg/dL (1.6-2.3) 02/20/25 05:12 Urine Creatinine 21.5 mg/dL 02/20/25 07:58
[2025-02-20] MEDS: PHENYLEPHRINE HCL INJ 50 MG in SODIUM CHLORIDE 0.9% IV 245 ML 24 ML IV CONT (10:32)
--- NOTE | 2025-02-20 10:41 | P.PNIM_ITS ---
Progress Note: A&P Assessment and Plan (1) Septic shock: Code(s): A41.9 - Sepsis, unspecified organism; R65.21 - Severe sepsis with septic shock Status: Acute Assessment and Plan: 02/17: Patient presented from a shelter with AMS and SOB. WBC 17K. Bicarb 7 (AG 28). UA consistent with UTI. Lactic to 3.6 CT Ch/A/P showing ground-glass opacities throughout both lungs, thickening of bladder wall, large stool ball, distended stomach, and small amount of fat stranding with a few locules of air in the mid and distal sacrum. Sepsis with lactic acidosis, leukocytosis, resp failure, tachycardia, fever felt related to pneumonia and UTI +/- sacral decub Received 2L IV fluid bolus in ER and started on cefepime and vancomycin (02/17); Doxy added 02/18 Admitted to IMU but he decompensated and rapid response was called Patient intubated 02/17 and started on Phenylephrine for hypoxia and hypotension. BCx 02/17 - NGTD UCx 02/17 - growing GNB Sputum Cx 02/18 - pending. Central line placed and Levophed added 02/18. WBC at 23K without change. Fever curve better. More acidotic today with AG 17. Levophed weaned off 02/19. Remains on phenylephrine but able to wean; wean off to keep MAP>65 (2) Acute respiratory failure: Code(s): J96.00 - Acute respiratory failure, unspecified whether with hypoxia or hypercapnia Status: Acute Assessment and Plan: Patient was transferred to the ICU from IMU for acute respiratory failure and emergently intubated (02/17) Probably related to multifocal pneumonia CXR reviewed personally today showing multifocal airspace disease. ABG 7. on MV [employer]er Operator consulted and appreciate their input Vent management per emergency spill response technician (3) Multifocal pneumonia: Code(s): J18.8 - Other pneumonia, unspecified organism Status: Acute Assessment and Plan: Multifocal pneumonia by imaging. Abx as above. Follow-up on culture results (4) Acute UTI: Code(s): N39.0 - Urinary tract infection, site not specified Status: Acute Assessment and Plan: UA was positive for UTI Complicated UTI with SP catheter UCx growing GNB Continue Abx as above (5) Electrolyte imbalance: Code(s): E87.8 - Other disorders of electrolyte and fluid balance, not elsewhere classified Status: Acute Assessment and Plan: Patient with multiple electrolyte abnormalities Elevated sodium related to insensible fluid loss and is curently on free water flushes as tolerated Hypokalemia and hypophos noted and currntly being replaced Continue to follow and replace as needed (6) Elevated LFTs: Code(s): R79.89 - Other specified abnormal findings of blood chemistry Status: Acute Assessment and Plan: LFTs elevated yesterday felt related to shock liver Abd US was limited but showing no acute hepatic disease. Levels peaked and are trending down now Follow (7) Fecal impaction: Code(s): K56.41 - Fecal impaction Status: Acute Assessment and Plan: CT showing large stool ball on admission. Senna started. No BMs documented since admission. Add Miralax once he is toelrating TF better. On trickle feedings and currently on Reglan Dulcolax suppository once (8) Diabetes: Code(s): E11.9 - Type 2 diabetes mellitus without complications Status: Acute Assessment and Plan: The patient's blood glucose was reviewed on 02/20 Glucose remains well controlled. Continue AccuCheks covering with sliding scale. Hypoglycemia protocol available as needed. Continue to monitor (9) Sacral ulcer: Code(s): L98.429 - Non-pressure chronic ulcer of back with unspecified severity Status: Acute Assessment and Plan: Patient has a sacral ulcer noted present on admission. CT Abd/Pelvis showing small amount of fat stranding with a few locules of air about the posterior aspect of the mid and distal sacrum. No obvious loculated fluid collection identified. No convincing CT evidence for sacral osteomyelitis at this time. Wound Care to evaluate. Continue abx. Plan DVT prophylaxis: Heparin subQ Stress ulcer prophylaxis: Protonix Code Status: Full code Subjective Date/time seen: 02/20/25 10:41 Interval history: 64yo male with HLD, DM and Asthma who presents with altered mental status and hypoxia from his shelter. Rapid response called once patient arrived to floor for being hypoxic. Patint is intubated and sedated. Not tolerating TF well with 100ml residual. TF only running at 10ml/hr. Remains off Levophed and able to decrease Phenylephrine. No issues overnight. Exam Narrative: Tm 100.3 99.9 100/66 107 24 100% MV Gen - intubated and sedated HEENT - NGT right nares. ETT secured. Neck - TLC right IJ Chest - clear anteriorly. CV - tachycardic. Tele showing sinus tachycardia but no significant dysrhytmias Abd - Soft, scaphoid. +BS. Suprapubic dressing clean and dry. SP catheter secured draining clear yellow urine Ext - No pedal edema. cap refill 2-3 sec Neuro - sedated Psych - unable to assess Skin - Warm and dry Objective Data Vital Signs Vital Signs: Vital Signs - 24 hr 02/19/25 10:56 02/19/25 10:58 02/19/25 11:00 Temperature Pulse Rate 106 H 106 H 106 H Respiratory Rate Blood Pressure 94/69 L 94/69 L Pulse Oximetry 97 Oxygen Delivery Mechanical Ventilation Fraction of Inspired Oxygen 50 02/19/25 11:00 02/19/25 11:02 02/19/25 11:02 Temperature Pulse Rate 106 H 106 H 106 H Respiratory Rate 22 H 22 H 22 H Blood Pressure 85/66 L Pulse Oximetry 98 Oxygen Delivery Fraction of Inspired Oxygen 02/19/25 11:04 02/19/25 11:04 02/19/25 11:15 Temperature Pulse Rate 106 H 106 H 108 H Respiratory Rate 22 H 22 H Blood Pressure 100/69 Pulse Oximetry Oxygen Delivery Fraction of Inspired Oxygen 02/19/25 12:00 02/19/25 12:00 02/19/25 12:00 Temperature 98.1 F Pulse Rate 114 H Respiratory Rate 22 H Blood Pressure 98/69 L Pulse Oximetry 98 98 Oxygen Delivery Mechanical Ventilation Fraction of Inspired Oxygen 50 50 02/19/25 12:00 02/19/25 12:00 02/19/25 12:00 Temperature Pulse Rate 114 H 114 H 114 H Respiratory Rate 22 H 22 H Blood Pressure 98/69 L Pulse Oximetry Oxygen Delivery Fraction of Inspired Oxygen 02/19/25 12:00 02/19/25 12:00 02/19/25 13:00 Temperature 98.8 F Pulse Rate 114 H 112 H 116 H Respiratory Rate 21 H Blood Pressure 98/69 L 103/70 Pulse Oximetry 96 Oxygen Delivery Fraction of Inspired Oxygen 02/19/25 13:54 02/19/25 13:58 02/19/25 14:00 Temperature Pulse Rate 114 H 119 H 116 H Respiratory Rate 22 H Blood Pressure Pulse Oximetry 98 Oxygen Delivery Mechanical Ventilation Fraction of Inspired Oxygen 50 02/19/25 14:00 02/19/25 14:00 02/19/25 14:00 Temperature Pulse Rate 116 H 116 H 116 H Respiratory Rate 22 H 22 H Blood Pressure 117/79 117/79 Pulse Oximetry 97 Oxygen Delivery Fraction of Inspired Oxygen 02/19/25 14:03 02/19/25 14:25 02/19/25 15:00 Temperature Pulse Rate 119 H 116 H 116 H Respiratory Rate 23 H 22 H 22 H Blood Pressure 102/67 Pulse Oximetry 98 Oxygen Delivery Fraction of Inspired Oxygen 02/19/25 15:38 02/19/25 15:50 02/19/25 15:58 Temperature Pulse Rate 115 H 115 H Respiratory Rate Blood Pressure 101/68 101/68 Pulse Oximetry Oxygen Delivery Fraction of Inspired Oxygen 50 02/19/25 16:00 02/19/25 16:00 02/19/25 16:00 Temperature 98.4 F Pulse Rate 115 H 115 H 115 H Respiratory Rate 23 H 22 H Blood Pressure 111/77 111/77 Pulse Oximetry 98 Oxygen Delivery Fraction of Inspired Oxygen 02/19/25 16:00 02/19/25 16:00 02/19/25 16:00 Temperature Pulse Rate 115 H 120 H Respiratory Rate 22 H Blood Pressure Pulse Oximetry 98 Oxygen Delivery Mechanical Ventilation Fraction of Inspired Oxygen 50 02/19/25 16:30 02/19/25 17:00 02/19/25 18:00 Temperature Pulse Rate 117 H 116 H 116 H Respiratory Rate 22 H Blood Pressure 108/72 Pulse Oximetry 97 98 Oxygen Delivery Mechanical Ventilation Fraction of Inspired Oxygen 50 02/19/25 18:00 02/19/25 18:00 02/19/25 18:00 Temperature Pulse Rate 116 H 116 H 116 H Respiratory Rate 24 H 24 H Blood Pressure 104/65 Pulse Oximetry Oxygen Delivery Fraction of Inspired Oxygen 02/19/25 18:00 02/19/25 19:00 02/19/25 19:15 Temperature 98.6 F Pulse Rate 116 H 120 H 118 H Respiratory Rate 23 H 24 H 22 H Blood Pressure 104/65 109/77 105/72 Pulse Oximetry 98 98 99 Oxygen Delivery Fraction of Inspired Oxygen 02/19/25 19:16 02/19/25 19:30 02/19/25 19:31 Temperature Pulse Rate 118 H 117 H 117 H Respiratory Rate 23 H 23 H 24 H Blood Pressure 108/71 Pulse Oximetry 99 98 98 Oxygen Delivery Fraction of Inspired Oxygen 02/19/25 19:45 02/19/25 19:46 02/19/25 19:53 Temperature Pulse Rate 119 H 119 H 117 H Respiratory Rate 25 H 24 H Blood Pressure 114/78 Pulse Oximetry 98 99 100 Oxygen Delivery Mechanical Ventilation Fraction of Inspired Oxygen 50 02/19/25 19:53 02/19/25 19:58 02/19/25 20:00 Temperature Pulse Rate 117 H 119 H 117 H Respiratory Rate 23 H 23 H Blood Pressure 108/69 Pulse Oximetry Oxygen Delivery Fraction of Inspired Oxygen 02/19/25 20:00 02/19/25 20:00 02/19/25 20:00 Temperature 100.3 F H Pulse Rate 118 H 117 H Respiratory Rate 22 H Blood Pressure 108/69 Pulse Oximetry 100 Oxygen Delivery Fraction of Inspired Oxygen 50 02/19/25 20:00 02/19/25 20:00 02/19/25 20:00 Temperature Pulse Rate 117 H 117 H 117 H Respiratory Rate 25 H 25 H 22 H Blood Pressure 108/69 Pulse Oximetry 99 Oxygen Delivery Fraction of Inspired Oxygen 02/19/25 20:01 02/19/25 20:15 02/19/25 20:16 Temperature Pulse Rate 117 H 119 H 120 H Respiratory Rate 25 H 26 H 23 H Blood Pressure 106/73 Pulse Oximetry 99 98 98 Oxygen Delivery Fraction of Inspired Oxygen 02/19/25 20:28 02/19/25 20:31 02/19/25 20:34 Temperature Pulse Rate 120 H 121 H 120 H Respiratory Rate 22 H Blood Pressure 106/70 106/70 Pulse Oximetry 99 Oxygen Delivery Fraction of Inspired Oxygen 02/19/25 20:45 02/19/25 20:46 02/19/25 21:00 Temperature Pulse Rate 124 H 124 H 123 H Respiratory Rate 20 21 H 22 H Blood Pressure 115/70 111/72 Pulse Oximetry 99 99 99 Oxygen Delivery Fraction of Inspired Oxygen 02/19/25 21:00 02/19/25 21:00 02/19/25 21:01 Temperature Pulse Rate 123 H 123 H 122 H Respiratory Rate 23 H 21 H 26 H Blood Pressure 111/72 Pulse Oximetry 99 98 98 Oxygen Delivery Mechanical Ventilation Fraction of Inspired Oxygen 50 02/19/25 21:15 02/19/25 21:16 02/19/25 21:30 Temperature Pulse Rate 124 H 124 H 122 H Respiratory Rate 26 H 23 H 22 H Blood Pressure 120/78 111/68 Pulse Oximetry 99 99 99 Oxygen Delivery Fraction of Inspired Oxygen 02/19/25 21:31 02/19/25 21:45 02/19/25 21:46 Temperature Pulse Rate 122 H 119 H 119 H Respiratory Rate 23 H 23 H 23 H Blood Pressure 110/71 Pulse Oximetry 99 99 99 Oxygen Delivery Fraction of Inspired Oxygen 02/19/25 22:00 02/19/25 22:00 02/19/25 22:00 Temperature Pulse Rate 118 H 118 H 121 H Respiratory Rate 22 H Blood Pressure 109/75 117/73 Pulse Oximetry 100 Oxygen Delivery Fraction of Inspired Oxygen 02/19/25 22:00 02/19/25 22:00 02/19/25 22:00 Temperature Pulse Rate 118 H 118 H 118 H Respiratory Rate 23 H 23 H 23 H Blood Pressure 109/75 Pulse Oximetry 99 Oxygen Delivery Fraction of Inspired Oxygen 02/19/25 22:01 02/19/25 22:15 02/19/25 22:16 Temperature Pulse Rate 118 H 123 H 123 H Respiratory Rate 23 H 21 H 25 H Blood Pressure 125/77 Pulse Oximetry 99 100 100 Oxygen Delivery Fraction of Inspired Oxygen 02/19/25 22:30 02/19/25 22:38 02/19/25 22:45 Temperature Pulse Rate 121 H 121 H 119 H Respiratory Rate 26 H 22 H Blood Pressure 117/73 103/64 Pulse Oximetry 99 99 Oxygen Delivery Fraction of Inspired Oxygen 02/19/25 22:46 02/19/25 23:00 02/19/25 23:00 Temperature Pulse Rate 119 H 118 H 118 H Respiratory Rate 23 H 22 H Blood Pressure 97/69 L Pulse Oximetry 99 99 98 Oxygen Delivery Mechanical Ventilation Fraction of Inspired Oxygen 50 02/19/25 23:00 02/19/25 23:01 02/19/25 23:17 Temperature Pulse Rate 117 H 117 H 116 H Respiratory Rate 18 17 18 Blood Pressure 97/69 L Pulse Oximetry 99 99 99 Oxygen Delivery Fraction of Inspired Oxygen 02/19/25 23:30 02/19/25 23:31 02/19/25 23:45 Temperature Pulse Rate 116 H 116 H 115 H Respiratory Rate 18 17 23 H Blood Pressure 103/69 102/69 Pulse Oximetry 99 99 99 Oxygen Delivery Fraction of Inspired Oxygen 02/19/25 23:46 02/19/25 23:48 02/20/25 00:00 Temperature Pulse Rate 115 H 115 H 120 H Respiratory Rate 21 H 23 H 23 H Blood Pressure Pulse Oximetry 99 Oxygen Delivery Fraction of Inspired Oxygen 02/20/25 00:00 02/20/25 00:00 02/20/25 00:00 Temperature Pulse Rate 118 H 130 H Respiratory Rate 23 H Blood Pressure Pulse Oximetry 100 Oxygen Delivery Mechanical Ventilation Fraction of Inspired Oxygen 50 50 02/20/25 00:00 02/20/25 00:09 02/20/25 00:15 Temperature 98.4 F Pulse Rate 120 H 118 H 117 H Respiratory Rate 23 H 16 18 Blood Pressure 118/77 109/68 Pulse Oximetry 100 100 100 Oxygen Delivery Fraction of Inspired Oxygen 02/20/25 00:16 02/20/25 00:30 02/20/25 00:31 Temperature Pulse Rate 117 H 115 H 114 H Respiratory Rate 17 18 17 Blood Pressure 102/69 Pulse Oximetry 100 100 99 Oxygen Delivery Fraction of Inspired Oxygen 02/20/25 00:45 02/20/25 00:47 02/20/25 01:00 Temperature Pulse Rate 114 H 114 H 113 H Respiratory Rate 17 16 22 H Blood Pressure 103/69 105/67 Pulse Oximetry 100 100 100 Oxygen Delivery Fraction of Inspired Oxygen 02/20/25 01:00 02/20/25 01:00 02/20/25 01:00 Temperature Pulse Rate 113 H 113 H 113 H Respiratory Rate 16 23 H Blood Pressure 105/67 Pulse Oximetry 100 100 Oxygen Delivery Mechanical Ventilation Fraction of Inspired Oxygen 50 02/20/25 01:01 02/20/25 01:06 02/20/25 01:15 Temperature Pulse Rate 113 H 107 H 114 H Respiratory Rate 16 23 H 17 Blood Pressure 99/68 L Pulse Oximetry 100 99 Oxygen Delivery Fraction of Inspired Oxygen 02/20/25 01:16 02/20/25 01:30 02/20/25 01:31 Temperature Pulse Rate 114 H 115 H 115 H Respiratory Rate 18 16 16 Blood Pressure 104/67 Pulse Oximetry 99 100 100 Oxygen Delivery Fraction of Inspired Oxygen 02/20/25 01:38 02/20/25 01:46 02/20/25 01:51 Temperature Pulse Rate 120 H 119 H 120 H Respiratory Rate 18 Blood Pressure 118/74 118/74 Pulse Oximetry 100 Oxygen Delivery Fraction of Inspired Oxygen 02/20/25 02:00 02/20/25 02:00 02/20/25 02:02 Temperature Pulse Rate 117 H 117 H 118 H Respiratory Rate 23 H 18 Blood Pressure 107/82 Pulse Oximetry 99 99 Oxygen Delivery Fraction of Inspired Oxygen 02/20/25 02:05 02/20/25 02:06 02/20/25 03:00 Temperature Pulse Rate 118 H 117 H 114 H Respiratory Rate 23 H 23 H 22 H Blood Pressure 104/68 Pulse Oximetry 100 Oxygen Delivery Fraction of Inspired Oxygen 02/20/25 04:00 02/20/25 04:00 02/20/25 04:00 Temperature Pulse Rate 113 H 113 H 113 H Respiratory Rate 22 H 22 H Blood Pressure 103/69 Pulse Oximetry 100 Oxygen Delivery Fraction of Inspired Oxygen 02/20/25 04:00 02/20/25 04:00 02/20/25 04:00 Temperature Pulse Rate 113 H 113 H Respiratory Rate 22 H Blood Pressure 103/69 Pulse Oximetry 100 Oxygen Delivery Mechanical Ventilation Fraction of Inspired Oxygen 50 02/20/25 04:00 02/20/25 05:00 02/20/25 05:02 Temperature 98.3 F Pulse Rate 117 H 117 H Respiratory Rate 23 H Blood Pressure 116/74 116/74 Pulse Oximetry 100 Oxygen Delivery Fraction of Inspired Oxygen 50 02/20/25 05:35 02/20/25 06:00 02/20/25 06:00 Temperature Pulse Rate 115 H 111 H 111 H Respiratory Rate 22 H Blood Pressure 104/66 Pulse Oximetry 100 100 Oxygen Delivery Mechanical Ventilation Fraction of Inspired Oxygen 50 02/20/25 06:00 02/20/25 06:00 02/20/25 06:23 Temperature Pulse Rate 111 H 111 H 110 H Respiratory Rate 22 H 22 H Blood Pressure 104/66 Pulse Oximetry Oxygen Delivery Fraction of Inspired Oxygen 02/20/25 06:32 02/20/25 08:00 02/20/25 08:00 Temperature Pulse Rate 118 H 107 H 107 H Respiratory Rate 24 H Blood Pressure 113/77 Pulse Oximetry 99 Oxygen Delivery Mechanical Ventilation Fraction of Inspired Oxygen 45 02/20/25 08:00 02/20/25 08:00 02/20/25 08:00 Temperature Pulse Rate 106 H 106 H Respiratory Rate 24 H Blood Pressure 97/65 L Pulse Oximetry Oxygen Delivery Fraction of Inspired Oxygen 45 02/20/25 08:00 02/20/25 08:17 02/20/25 08:26 Temperature Pulse Rate 106 H 106 H 107 H Respiratory Rate 24 H 24 H Blood Pressure Pulse Oximetry 99 Oxygen Delivery Mechanical Ventilation Fraction of Inspired Oxygen 40 02/20/25 10:00 02/20/25 10:00 02/20/25 10:00 Temperature Pulse Rate 113 H 113 H 113 H Respiratory Rate 24 H 24 H Blood Pressure 103/69 Pulse Oximetry Oxygen Delivery Fraction of Inspired Oxygen 02/20/25 10:00 02/20/25 10:00 02/20/25 10:32 Temperature 99.9 F H Pulse Rate 107 H 106 H 107 H Respiratory Rate 24 H Blood Pressure 103/64 100/66 Pulse Oximetry 100 Oxygen Delivery Fraction of Inspired Oxygen Intake/Output Intake/Output: Intake & Output 02/17/25 02/18/25 02/19/25 02/20/25 23:59 23:59 23:59 23:59 Intake Total 2839.6 7304.2 5459.3667 1562.9 Output Total 500 1750 1900 650 Balance 2339.6 5554.2 3559.3667 912.9 Meds/Results Medications: Active Medications Generic Name Dose Route Start Last Admin Trade Name Freq PRN Reason Stop Dose Admin Acetaminophen 650 mg 02/17/25 20:19 02/18/25 14:31 Acetaminophen 325 Mg Tablet FEED TUBE 650 mg Q4H PRN Administration Mild Pain (1-3) or Fever Dextrose 12.5 gm 02/17/25 21:35 Dextrose 50% 25 Gm/50 Ml Syringe IV PUSH PRN PRN Hypoglycemia Protocol Folic Acid 1 mg 02/19/25 09:00 02/20/25 09:55 Folic Acid 1 Mg/0.2 Ml Inj IV PUSH 1 mg QAM KENNETH Administration Glucagon 1 mg 02/17/25 21:35 Glucagon For Inj 1 Mg Vial IM PRN PRN Hypoglycemia Protocol Glucose 15 gm 02/17/25 21:35 Glucose Oral Gel 15 Gm Of Glucse In 37.5 Gm Tube PO PRN PRN Hypoglycemia Protocol Heparin Sodium (Porcine) 5,000 units 02/18/25 14:00 02/20/25 05:33 Heparin Sodium 5,000 Units/Ml Vial SUB-Q 5,000 units Q8HR KENNETH Administration Cefepime HCl 2 gm/ Sodium 50 mls @ 100 mls/hr 02/18/25 06:00 02/20/25 06:23 Chloride IVPB Infused Q12H KENNETH Infusion Fentanyl Citrate 2,500 mcg in 250 mls @ 7.5 mls/hr 02/17/25 20:10 02/20/25 10:00 Fentanyl 2,500 Mcg/Ns 250 Ml IV CONT 75 mcg/hr .[id number] KENNETH 7.5 mls/hr Protocol Titration 75 MCG/HR Midazolam HCl 100 mg in 100 mls @ 1 mls/hr 02/17/25 20:10 02/20/25 10:00 Versed 100 Mg/Ns 100 Ml IV CONT 2 mg/hr .Q72H KENNETH 2 mls/hr Protocol Titration 1 MG/HR Dextrose 1,000 mls @ 100 mls/hr 02/17/25 21:35 Dextrose 5% 1,000 Ml IVPB PRN PRN Hypoglycemia Protocol Phenylephrine HCl 50 mg/ 250 mls @ 24 mls/hr 02/18/25 05:10 02/20/25 10:32 Sodium Chloride IV CONT 80 mcg/min .[id number] KENNETH 24 mls/hr Protocol Administration 80 MCG/MIN Doxycycline Hyclate 100 mg/ 100 mls @ 100 mls/hr 02/18/25 08:00 02/20/25 08:12 Sodium Chloride IVPB 02/23/25 07:59 100 mls/hr Q12H KENNETH Administration Vancomycin HCl 1,000 mg/ 250 mls @ 250 mls/hr 02/19/25 10:00 02/20/25 09:55 Sodium Chloride IVPB 250 mls/hr Q12H KENNETH Administration Potassium Phosphate 40 mmol/ 263.3333 mls @ 43.889 mls/hr 02/20/25 07:18 02/20/25 08:25 Sodium Chloride IVPB 02/20/25 13:17 43.89 mls/hr ONCE ONE Administration Dextrose 1,000 mls @ 125 mls/hr 02/20/25 10:05 02/20/25 10:18 Dextrose 5% 1,000 Ml IV CONT 125 mls/hr .Q8H KENNETH Administration Insulin Aspart 3 - 6 units 02/18/25 00:00 02/20/25 09:28 Insulin Aspart (*Bkc) 100 Units/Ml SUB-Q Not Given Q4HR [facility] Protocol Ipratropium [place] 0.5 mg 02/18/25 09:35 02/20/25 08:16 Ipratropium Br 0.02% Inh Soln 0.5 Mg/2.5 Ml Vial INHALATION 0.5 mg Q6HRT KENNETH Administration Levalbuterol HCl 0.63 mg 02/18/25 09:35 02/20/25 08:17 Levalbuterol Neb 1.25 Mg/3 Ml INHALATION 0.63 mg Q6HRT KENNETH Administration Metoclopramide HCl 10 mg 02/19/25 12:00 02/20/25 05:33 Metoclopramide Hcl Inj 10 Mg/2 Ml Vial IV PUSH 10 mg Q6HR KENNETH Administration Multi-Ingred Cream/Lotion/Oil/Oint 1 applic 02/17/25 21:00 02/20/25 09:29 Mineral Oil/White Petrolatum Ointment EACH EYE 1 applic Q12HR KENNETH Administration Pantoprazole Sodium 40 mg 02/18/25 09:00 02/20/25 07:44 Pantoprazole Sodium Iv 40 Mg Vial IV PUSH 40 mg Q12HR KENNETH Administration Perflutren Lipid Microsphere 0 ml 02/18/25 07:28 Perflutren Lipid Microspheres 1.5 Ml Vial Diluted To 10 Ml Total Volume IV PUSH 02/21/25 07:28 ONCE PRN adequate visualization Protocol Senna/Docusate Sodium 1 tab 02/17/25 21:00 02/19/25 21:12 Senna/Docusate Sodium Tablet FEED TUBE 1 tab HS KENNETH Administration Sodium Chloride 10 ml 02/18/25 22:00 02/20/25 05:33 Central Line Flush IV PUSH 10 ml Q8HR KENNETH Administration Sodium Chloride 20 ml 02/18/25 16:07 02/20/25 05:33 Central Line Flush IV PUSH 20 ml PRN PRN Administration after blood draws Thiamine HCl 100 mg 02/19/25 09:00 02/20/25 07:44 Thiamine Hcl 200 Mg/2 Ml Vial IV PUSH 100 mg QAM KENNETH Administration Radiology Results: ITS Impressions Head CT 02/17/25 16:55 IMPRESSION: 1. No acute intracranial hemorrhage. No mass effect. 2. Probable chronic ischemic white matter change. Chest/Abdomen/Pelvis CT 02/17/25 17:11 IMPRESSION: 1. Moderate sized groundglass opacities scattered throughout both lungs most prominent in the lower lobes. In addition, there are small to moderate sized patchy consolidations scattered throughout both lungs most prominent in the lower lobes. The findings are concerning for multilobar pneumonia. Other etiologies are possible but are felt to be less likely. Recommend follow-up to resolution. 2.There is a Daniels catheter in the bladder. Mild concentric thickening of the calvo of the bladder. Small amount of nondependent air in the bladder which may be due to recent instrumentation or cystitis. 3. Large amount of stool in the rectum. 4. The stomach is distended and filled with air. 5. Small amount of fat stranding with a few locules of air about the posterior aspect of the mid and distal sacrum. No obvious loculated fluid collection identified. No convincing CT evidence for sacral osteomyelitis at this time. Abdomen Ultrasound 02/19/25 13:00 Impression: Limited study. No acute process Chest X-Ray 02/20/25 10:19 Impression: 1: Stable patchy bilateral airspace disease, compatible with pneumonia. Labs Labs: Laboratory Results - last 24 hr 02/19/25 02/19/25 02/19/25 12:17 16:16 22:07 WBC RBC Hgb Hct MCV MCH MCHC RDW Plt Count MPV Immature Gran % (Auto) Neut % (Auto) Lymph % (Auto) Castro % (Auto) Eos % (Auto) Baso % (Auto) Lymph # (Auto) [place] # (Auto) Eos # (Auto) Baso # (Auto) Abs Immat Gran (auto) Absolute Neuts (auto) Absolute Nucleated RBC Nucleated RBC % Puncture Site ABG pH ABG pCO2 ABG pO2 ABG PO2/FiO2 Ratio ABG HCO3 ABG O2 Saturation ABG O2 Content ABG Base Excess A-a Gradient Oxyhemoglobin Carboxyhemoglobin Methemoglobin Reduced Hemoglobin Total Hemoglobin O2 Delivery Device O2 Liters/Min Minute Volume Vent Rate Vent Mode FiO2 Tidal Volume PEEP Peak Inspir Pressure Pressure Support Sodium Potassium Chloride Carbon Dioxide Anion Gap BUN Creatinine Estim Creat Clear Calc Estimated GFR Glucose POC Capillary Glucose 82 113 H 118 H Lactic Acid Calcium Phosphorus Magnesium Total Bilirubin AST ALT Alkaline Phosphatase Total Creatine Kinase Total Protein Albumin Urine Eosinophils Ur Random Sodium Ur Random Potassium Urine Creatinine 02/20/25 02/20/25 02/20/25 00:09 04:41 05:12 WBC 22.8 H RBC 3.63 L Hgb 9.6 L Hct 30.2 L MCV 83.2 MCH 26.4 MCHC 31.8 L RDW 17.0 H Plt Count 227 MPV 9.2 Immature Gran % (Auto) 1.0 H Neut % (Auto) 92.6 H Lymph % (Auto) 2.9 L Castro % (Auto) 2.9 Eos % (Auto) 0.0 Baso % (Auto) 0.6 Lymph # (Auto) 0.67 L [place] # (Auto) 0.7 H Eos # (Auto) 0.0 Baso # (Auto) 0.1 Abs Immat Gran (auto) 0.23 H Absolute Neuts (auto) 21.0 H Absolute Nucleated RBC 0.040 H Nucleated RBC % 0.2 Puncture Site ABG pH ABG pCO2 ABG pO2 ABG PO2/FiO2 Ratio ABG HCO3 ABG O2 Saturation ABG O2 Content ABG Base Excess A-a Gradient Oxyhemoglobin Carboxyhemoglobin Methemoglobin Reduced Hemoglobin Total Hemoglobin O2 Delivery Device O2 Liters/Min Minute Volume Vent Rate Vent Mode FiO2 Tidal Volume PEEP Peak Inspir Pressure Pressure Support Sodium 154 H Potassium 2.9 L Chloride 120 H Carbon Dioxide 17 L Anion Gap 17 H BUN 21 H Creatinine 0.65 L Estim Creat Clear Calc 87 Estimated GFR > 60 Glucose 114 H POC Capillary Glucose 119 H 100 Lactic Acid 1.1 Calcium 9.1 Phosphorus 1.6 L Magnesium 1.9 Total Bilirubin 0.9 AST 187 H ALT 225 H Alkaline Phosphatase 269 H Total Creatine Kinase 99 Total Protein 5.9 L Albumin 3.1 L Urine Eosinophils Ur Random Sodium Ur Random Potassium Urine Creatinine 02/20/25 02/20/25 05:23 07:58 WBC RBC Hgb Hct MCV MCH MCHC RDW Plt Count MPV Immature Gran % (Auto) Neut % (Auto) Lymph % (Auto) [place] % (Auto) Eos % (Auto) Baso % (Auto) Lymph # (Auto) [place] # (Auto) Eos # (Auto) Baso # (Auto) Abs Immat Gran (auto) Absolute Neuts (auto) Absolute Nucleated RBC Nucleated RBC % Puncture Site Right radial ABG pH 7.287 L* ABG pCO2 31.1 L ABG pO2 101.3 H ABG PO2/FiO2 Ratio 2.03 ABG HCO3 14.5 L ABG O2 Saturation 97.1 ABG O2 Content 14.2 L ABG Base Excess -11.0 A-a Gradient 220.2 Oxyhemoglobin 97.3 Carboxyhemoglobin 0.0 Methemoglobin 0.2 Reduced Hemoglobin 2.5 Total Hemoglobin 10.3 L O2 Delivery Device Ventilator O2 Liters/Min Not Reportable Minute Volume Not Reportable Vent Rate 22 Vent Mode Cmv FiO2 50 Tidal Volume 450 PEEP 10 Peak Inspir Pressure Not Reportable Pressure Support Not Reportable Sodium Potassium Chloride Carbon Dioxide Anion Gap BUN Creatinine Estim Creat Clear Calc Estimated GFR Glucose POC Capillary Glucose Lactic Acid Calcium Phosphorus Magnesium Total Bilirubin AST ALT Alkaline Phosphatase Total Creatine Kinase Total Protein Albumin Urine Eosinophils Rare Ur Random Sodium 41 Ur Random Potassium 39.5 Urine Creatinine 21.5
[2025-02-20 11:40] LABS: Anion Gap 17 mmol/L (4-12); Blood Urea Nitrogen 21 mg/dL (9-20); Calcium 8.9 mg/dL (8.4-10.2); Carbon Dioxide 17 mmol/L (22-30); Chloride 123 mmol/L (98-107); Estimated CRCL calculation 95 ml/min; Estimated Glomerular Filt Rate > 60; Glucose 130 mg/dL (65-110); Potassium 3.5 mmol/L (3.4-5.0); Sodium 157 mmol/L (137-145)
[2025-02-20 12:15] LABS: Add Urine Microscopic? YES; Appearance Urine Cloudy (Clear); Glucose Urine UA 3+ mg/dL (Negative); Leukocyte Esterase Ur Negative LEU/UL (Negative); Need Manual Microscopic Reviewed; Nitrate Urine Negative (Negative); Specific Grav Ur 1.025 (1.001-1.035)
[2025-02-20 12:24] LABS: Beta-Hydroxybutyrate/Acetoace. 7.15 mmol/L (0.02-0.27)
[2025-02-20] MEDS: BISACODYL 10 MG SUPPOSITORY RECTAL (12:58)
[2025-02-20 18:07] LABS: Albumin Level 2.8 g/dL (3.5-5.1); Anion Gap 14 mmol/L (4-12); Blood Urea Nitrogen 21 mg/dL (9-20); Calcium 8.7 mg/dL (8.4-10.2); Carbon Dioxide 17 mmol/L (22-30); Chloride 121 mmol/L (98-107); Estimated CRCL calculation 94 ml/min; Estimated Glomerular Filt Rate > 60; Glucose 179 mg/dL (65-110); Magnesium 2.1 mg/dL (1.6-2.3); Potassium 3.2 mmol/L (3.4-5.0); Sodium 152 mmol/L (137-145)
[2025-02-20] MEDS: POTASSIUM CHLORIDE 20 MEQ PACKET (FOR LIQUID) 60 MEQ FEED TUBE (18:47)
[2025-02-20] MEDS: SENNA/DOCUSATE SODIUM TABLET 1 TAB FEED TUBE (20:15)
[2025-02-20] MEDS: FENTANYL 2,500MCG/NS250ML(*CRX 2,500 MCG/250 ML BAG 7.5 MCG IV CONT (20:34)
[2025-02-20] MEDS: PHENYLEPHRINE HCL INJ 50 MG in SODIUM CHLORIDE 0.9% IV 245 ML 19.5 ML IV CONT (21:22)
[2025-02-20] MEDS: VANCOMYCIN 2,000 MG/NS 500 ML 2,000 MG/500 ML BAG 250 MG IVPB (22:51)
[2025-02-21] VITALS (42 sets, daily range): BP systolic 83–149; BP diastolic 62–94; PULSE 90–121; RESP 18–100; TEMP 36.4–36.8; O2SAT 100
[2025-02-21] MEDS: METOCLOPRAMIDE HCL INJ 10 MG/2 ML VIAL IV PUSH ×4 (00:22→18:49)
[2025-02-21] MEDS: IPRATROPIUM BR 0.02% INH SOLN 0.5 MG/2.5 ML VIAL INHALATION ×4 (01:40→20:16)
[2025-02-21] MEDS: DEXTROSE 5% 1,000 ML 1,000 ML 125 ML IV CONT ×3 (02:30→21:50)
[2025-02-21 05:19] LABS: Hematocrit 28.1 % (42.0-52.0); Hemoglobin 8.9 g/dL (14.0-18.0); Immature Granulocyte Percent A 1.3 % (0-0.5); Lymphocytes Absolute Auto 0.84 K/mm3 (0.9-3.2); Mean Corpuscular HGB Conc 31.7 g/dl (32-36); Mean Corpuscular Hemoglobin 25.9 pg (26-34); Mean Corpuscular Volume 81.9 fl (80-100); Nucleated Red Blood Cells Absolute Auto 0.030 K/mm3 (0.0-0.012); Nucleated Red Blood Cells Perc 0.2 % (0.0-0.2); Platelet Count Result 173 k/mm3 (150-375); Red Blood Count 3.43 M/mm3 (4.6-6.20); White Blood Count 15.8 K/mm3 (4.5-10.0)
[2025-02-21 05:21] LABS: Alveolar/Arterial O2 Gradient 206.4 mmHg; Carboxyhemoglobin 0.3 % THb (0-2.0); Fractional Inspired Oxygen 40 %; HCO3 ABG 17.8 mEq/l (22.0-26.0); Methemoglobin ABG 0.2 %THb (0-1.5); Oxygen Content ABG 10.1 %vol (16.0-22.0); PCO2 ABG 31.8 mmHg (35.0-45.0); PO2 FiO2 Ratio Arterial Blood 1.06 %; Reduced Hemoglobin 22.1 %THb (0-5.0)
[2025-02-21 05:27] LABS: PO2 ABG 42.2 mmHg (80.0-100.0)
[2025-02-21 05:28] LABS: Modified Allen's Test Pass; Oxygen Saturation ABG 77.0 % (95.0-100.0); Site Drawn RIGHT RADIAL
[2025-02-21 05:29] LABS: Arterial Blood Gas Minute Volume 7.3 LPM; Arterial Blood Gas Pressure Support 40 cmH2O; Arterial Blood Gas Ventilator rate 24 /MIN
[2025-02-21 05:38] LABS: Alanine Aminotransferase 229 U/L (6-50); Albumin Level 2.7 g/dL (3.5-5.1); Alkaline Phosphatase 236 U/L (38-126); Anion Gap 9 mmol/L (4-12); Aspartate Amino Transferase 164 U/L (17-59); Bilirubin,Total 0.6 mg/dL (0.2-1.3); Blood Urea Nitrogen 20 mg/dL (9-20); Calcium 8.4 mg/dL (8.4-10.2); Carbon Dioxide 20 mmol/L (22-30); Chloride 120 mmol/L (98-107); Estimated CRCL calculation 132 ml/min; Estimated Glomerular Filt Rate > 60; Glucose 205 mg/dL (65-110); Magnesium 1.9 mg/dL (1.6-2.3); Potassium 3.6 mmol/L (3.4-5.0); Sodium 149 mmol/L (137-145); Total Protein 5.5 g/dL (6.3-8.2)
[2025-02-21 05:47] LABS: Anisocytosis 1+; Hypochromasia 1+; Ovalocytes 1+; Schistocytes None Seen
[2025-02-21] MEDS: CEFEPIME 2 GM in SODIUM CHLORIDE 0.9% IV 50 ML 100 ML IVPB ×2 (06:23→18:49)
[2025-02-21] MEDS: CENTRAL LINE FLUSH 10 ML IV PUSH ×3 (06:25→23:51)
--- NOTE | 2025-02-21 08:07 | WPDINTPN ---
Progress Note: A&P Assessment and Plan (1) Septic shock: Code(s): A41.9 - Sepsis, unspecified organism; R65.21 - Severe sepsis with septic shock Status: Acute Assessment and Plan: 02/17: Patient presented from a shelter with altered mental status, shortness of breath. Initially had Leukocytosis. Patient did receive 2 L IV fluid bolus in the ER, was transferred to the intermediate Unit and immediately upon arrival to the IMU, rapid response was called due to hypoxia, tachypnea, tachycardia. Patient was transferred to of the ICU -likely etiology pneumonia and UTI -lactic acid normalized -adequately fluid-resuscitated in the ICU -OFF Toan-Synephrine, , maintain MAP > 65 mm Hg or SBP > 100 mmHg to achieve adequate end organ perfusion -OFF Levophed -status post albumin for intravascular volume expansion -02/17: Preliminary blood cultures are negative x2 -02/17: Urine cultures growing Gram-negative bacilli -02/18: Sputum culture growing Gram negative bacilli 02/17: Nasal MRSA screen is positive -continue cefepime, doxycycline and vancomycin (02/17), -DC IV fluids (2) Acute respiratory failure: Code(s): J96.00 - Acute respiratory failure, unspecified whether with hypoxia or hypercapnia Status: Acute Assessment and Plan: 02/17: Patient was transferred to the ICU from intermediate Unit, 02/17: emergently intubated by ER physician likely cause multifocal pneumonia -patient is on CMV mode of ventilation, peep of 10, 50% FiO2 -chest x-ray and ABGs reviewed, -continue bronchodilators - Xopenex and Atrovent -patient fentanyl and Versed for sedation, have asked the bedside RN to pause sedation,, once he is awake will place him on PSV/SBT -daily SBT and SAT 02/17: CT chest, abdomen and pelvis IMPRESSION: 1. Moderate sized groundglass opacities scattered throughout both lungs most prominent in the lower lobes. In addition, there are small to moderate sized patchy consolidations scattered throughout both lungs most prominent in the lower lobes. The findings are concerning for multilobar pneumonia. Other etiologies are possible but are felt to be less likely. Recommend follow-up to resolution. 2.There is a Daniels catheter in the bladder. Mild concentric thickening of the calvo of the bladder. Small amount of nondependent air in the bladder which may be due to recent instrumentation or cystitis. 3. Large amount of stool in the rectum. 4. The stomach is distended and filled with air. 5. Small amount of fat stranding with a few locules of air about the posterior aspect of the mid and distal sacrum. No obvious loculated fluid collection identified. No convincing CT evidence for sacral osteomyelitis at this time. (3) Multifocal pneumonia: Code(s): J18.8 - Other pneumonia, unspecified organism Status: Acute Assessment and Plan: Multifocal pneumonia -continue treatment as above -sputum cultures growing GNR (4) Acute UTI: Code(s): N39.0 - Urinary tract infection, site not specified Status: Acute Assessment and Plan: UA was positive for UTI, urine cultures GNR -continue antibiotics as above (5) Diabetes: Code(s): E11.9 - Type 2 diabetes mellitus without complications Status: Acute Assessment and Plan: Accu-Cheks and sliding scale insulin (6) Sacral ulcer: Code(s): L98.429 - Non-pressure chronic ulcer of back with unspecified severity Status: Acute Assessment and Plan: Patient has a sacral ulcer -appreciate wound care evaluation and recommendations 02/17: CT abdomen and pelvis: Small amount of fat stranding with a few locules of air about the posterior aspect of the mid and distal sacrum. No obvious loculated fluid collection identified. No convincing CT evidence for sacral osteomyelitis at this time. (7) Metabolic acidosis: Code(s): E87.20 - Acidosis, unspecified Status: Acute Assessment and Plan: Patient with metabolic acidosis, hypernatremia, hypophosphatemia, hypokalemia -elevated beta hydroxybutyrate, urine positive for protein, glucose and ketones -most likely related to starvation ketoacidosis causing metabolic acidosis -patient on D5 water infusion, anion gap metabolic acidosis has resolved (8) Severe protein-calorie malnutrition: Code(s): E43 - Unspecified severe protein-calorie malnutrition Status: Acute Assessment and Plan: According to the niece patient has lost lot of weight since August 2024, initially she stated he unable to feed himself due to his neuropathy and was not being adequately fed at the shelter, after this surgery and when he was able to move his arms he stated he was not eating well because he was not hungry. -patient's BMI is 18.3, given his height, age, gender he does classify into severe protein calorie malnutrition -appreciate dietitian evaluation recommendations -continue tube feeds at 10 mL/hour with a goal of 10 mL/hour as patient continues to have low phosphorus, potassium and magnesium, hypernatremia. -could thiamine and folic acid -will try and increase tube feeds to 20 mL/hour -continue Reglan (9) Electrolyte imbalance: Code(s): E87.8 - Other disorders of electrolyte and fluid balance, not elsewhere classified Status: Acute Assessment and Plan: Hypernatremia: Will increase tube feed free water flushes to 200 mL /hr -Nephrology has been consulted for anion gap metabolic acidosis and hypernatremia -discussed with Nephrology, started patient on D5 water, check serial labs -appreciate nephrology following the patient Hypokalemia and hypophosphatemia: Will again replace potassium, magnesium and phosphorus. Most likely related to ketoacidosis (10) Constipation: Code(s): K59.00 - Constipation, unspecified Status: Acute Assessment and Plan: Large amount of stool in the rectal vault as seen on the CT scan of the abdomen and pelvis -patient has not had a bowel movement -02/20: Soapsuds enema was given without much improved -will give lactulose enema today -continue MiraLax and senna S Plan DVT prophylaxis: Heparin subQ Stress ulcer prophylaxis: Protonix Nutrition: Maintain tube feeds at 10 mL/hour for now to avoid refeeding syndrome, continue Reglan Code Status: Full code Critical Care Time Spent: 32 minutes Discussed with Jocelyn and Sarah during rounds and updated them with patient's condition and plan of care. I discussed with them regarding his UTI, pneumonia, electrolyte imbalance and severe malnutrition. I explained to them regarding each of his problems and answered all their questions Due to a high probability of clinically significant, life threatening deterioration, the patient required my highest level of preparedness to intervene emergently and I personally spent this critical care time directly and personally managing the patient. This critical care time included obtaining a history; examining the patient; pulse oximetry; ordering and review of studies; arranging urgent treatment with development of a management plan; evaluation of patient's response to treatment; frequent reassessment; and discussions with other providers. It was exclusive of separately billable procedures and treating other patients and teaching time. Please see Assessment and Plan section and the rest of the note for further information on patient assessment and treatment This dictation may have been done utilizing a voice recognition system. Attempts have been made to correct errors. However, there may be uncorrected grammatical, spelling, and recognitions errors present. Subjective Date/time seen: 02/21/25 08:07 Interval history: Reason for consult: Septic shock, acute respiratory failure, pneumonia, UTI, lactic acidosis, altered mental status 64yo male with HLD, DM and Asthma who presents with altered mental status and hypoxia from his shelter. Rapid response called once patient arrived to IMU for being hypoxic. Transferred to the ICU and emergently intubated by ER physician 02/21/2025: Patient seen examined the ICU, remains intubated on CMV mode of ventilation, peep of 10, 40% FiO2, sedated with fentanyl and Versed infusion. Opens his eyes but does not follow simple commands, withdraws to pain stimulus. Urine output has been good, afebrile, hemodynamically stable. OFF Toan-Synephrine Patient on D5 water infusion, sodium levels 149 this morning. Phosphorus is low Review of Systems Review of Systems: ROS unobtainable: Yes unobtainable due to endotracheal tube, unobtainable due to medical condition and unobtainable due to mental status Exam Narrative: General: intubated and sedated, in no acute distress HEENT:? Pupils equal and reactive, sclera is clear, ETT in place Neck:? Supple Respiratory:? Coarse breath sounds bilaterally, decreased at bases, no wheezing, adequate air entry Cardiac:? S1-S2 is normal, sinus tachycardia Abdomen:? Scaphoid abdomen, soft, nontender, hypoactive bowel sounds, patient cachectic and malnourished, patient has a sacral decubitus ulcer Extremities:? No edema, decreased pedal pulses Neuro:? Patient is intubated, sedated, opens his eyes to name but does not follow simple commands, withdraws to pain Skin:? old healing ulcers on the feet bilaterally Psych:? Unable to assess at this time Objective Data Vital Signs Vital Signs: Vital Signs - 24 hr 02/20/25 08:17 02/20/25 08:26 02/20/25 10:00 Temperature Pulse Rate 106 H 107 H 113 H Respiratory Rate 24 H 24 H Blood Pressure Pulse Oximetry 99 Oxygen Delivery Mechanical Ventilation Fraction of Inspired Oxygen 40 02/20/25 10:00 02/20/25 10:00 02/20/25 10:00 Temperature Pulse Rate 113 H 113 H 107 H Respiratory Rate 24 H Blood Pressure 103/69 Pulse Oximetry Oxygen Delivery Fraction of Inspired Oxygen 02/20/25 10:00 02/20/25 10:32 02/20/25 11:52 Temperature 99.9 F H Pulse Rate 106 H 107 H 103 H Respiratory Rate 24 H Blood Pressure 103/64 100/66 Pulse Oximetry 100 100 Oxygen Delivery Mechanical Ventilation Fraction of Inspired Oxygen 40 02/20/25 12:00 02/20/25 12:00 02/20/25 12:00 Temperature Pulse Rate 104 H 104 H Respiratory Rate 24 H Blood Pressure Pulse Oximetry 99 Oxygen Delivery Mechanical Ventilation Fraction of Inspired Oxygen 40 40 02/20/25 12:00 02/20/25 12:00 02/20/25 12:00 Temperature 99 F Pulse Rate 104 H 104 H 104 H Respiratory Rate 24 H 24 H Blood Pressure 103/70 103/70 Pulse Oximetry 99 Oxygen Delivery Fraction of Inspired Oxygen 02/20/25 12:00 02/20/25 14:00 02/20/25 14:00 Temperature Pulse Rate 104 H 99 99 Respiratory Rate 24 H 24 H Blood Pressure 104/74 Pulse Oximetry 100 Oxygen Delivery Fraction of Inspired Oxygen 02/20/25 14:00 02/20/25 14:00 02/20/25 14:00 Temperature Pulse Rate 99 99 99 Respiratory Rate 24 H 24 H Blood Pressure 97/72 L Pulse Oximetry Oxygen Delivery Fraction of Inspired Oxygen 02/20/25 14:06 02/20/25 14:12 02/20/25 14:15 Temperature Pulse Rate 99 99 102 H Respiratory Rate 24 H 24 H Blood Pressure Pulse Oximetry 100 Oxygen Delivery Mechanical Ventilation Fraction of Inspired Oxygen 40 02/20/25 16:00 02/20/25 16:00 02/20/25 16:00 Temperature Pulse Rate 96 96 Respiratory Rate 24 H Blood Pressure Pulse Oximetry 100 Oxygen Delivery Mechanical Ventilation Fraction of Inspired Oxygen 40 40 02/20/25 16:00 02/20/25 16:00 02/20/25 16:00 Temperature 98.1 F Pulse Rate 96 96 96 Respiratory Rate 24 H 24 H Blood Pressure 102/74 102/74 Pulse Oximetry 100 Oxygen Delivery Fraction of Inspired Oxygen 02/20/25 16:00 02/20/25 17:05 02/20/25 18:00 Temperature Pulse Rate 96 98 84 Respiratory Rate 24 H Blood Pressure Pulse Oximetry 100 Oxygen Delivery Mechanical Ventilation Fraction of Inspired Oxygen 40 02/20/25 18:00 02/20/25 20:00 02/20/25 20:00 Temperature 98.1 F Pulse Rate 84 92 92 Respiratory Rate 24 H 24 H Blood Pressure 106/77 127/82 Pulse Oximetry 100 Oxygen Delivery Fraction of Inspired Oxygen 02/20/25 20:00 02/20/25 20:00 02/20/25 20:00 Temperature Pulse Rate 92 94 Respiratory Rate 24 H 24 H Blood Pressure Pulse Oximetry 100 Oxygen Delivery Mechanical Ventilation Fraction of Inspired Oxygen 40 40 02/20/25 20:00 02/20/25 20:00 02/20/25 20:22 Temperature 98 F Pulse Rate 94 94 93 Respiratory Rate 24 H 24 H Blood Pressure 127/82 Pulse Oximetry 100 Oxygen Delivery Fraction of Inspired Oxygen 02/20/25 20:24 02/20/25 20:32 02/20/25 20:34 Temperature Pulse Rate 93 93 92 Respiratory Rate 24 H 24 H Blood Pressure Pulse Oximetry 100 Oxygen Delivery Mechanical Ventilation Fraction of Inspired Oxygen 40 02/20/25 20:34 02/20/25 20:45 02/20/25 20:48 Temperature Pulse Rate 92 97 99 Respiratory Rate 24 H 24 H Blood Pressure 128/79 128/79 Pulse Oximetry 100 Oxygen Delivery Fraction of Inspired Oxygen 02/20/25 21:00 02/20/25 21:16 02/20/25 21:22 Temperature Pulse Rate 96 96 96 Respiratory Rate 24 H 24 H Blood Pressure 101/71 97/73 L 97/73 L Pulse Oximetry 100 100 Oxygen Delivery Fraction of Inspired Oxygen 02/20/25 21:22 02/20/25 21:31 02/20/25 21:47 Temperature Pulse Rate 96 96 95 Respiratory Rate 24 H 24 H Blood Pressure 97/73 L 103/76 100/73 Pulse Oximetry 100 100 Oxygen Delivery Fraction of Inspired Oxygen 02/20/25 22:00 02/20/25 22:00 02/20/25 22:00 Temperature Pulse Rate 95 95 95 Respiratory Rate 24 H 24 H Blood Pressure 102/76 Pulse Oximetry Oxygen Delivery Fraction of Inspired Oxygen 02/20/25 22:00 02/20/25 22:01 02/20/25 22:16 Temperature Pulse Rate 95 95 94 Respiratory Rate 24 H 24 H Blood Pressure 102/76 107/76 Pulse Oximetry 100 100 Oxygen Delivery Fraction of Inspired Oxygen 02/20/25 22:31 02/20/25 22:45 02/20/25 22:45 Temperature Pulse Rate 94 94 94 Respiratory Rate 24 H 24 H Blood Pressure 108/82 107/81 107/81 Pulse Oximetry 100 100 Oxygen Delivery Fraction of Inspired Oxygen 02/20/25 23:00 02/20/25 23:15 02/20/25 23:30 Temperature Pulse Rate 93 92 92 Respiratory Rate 24 H 24 H Blood Pressure 91/67 L 93/73 L Pulse Oximetry 100 100 100 Oxygen Delivery Mechanical Ventilation Fraction of Inspired Oxygen 40 02/20/25 23:30 02/20/25 23:45 02/21/25 00:00 Temperature Pulse Rate 92 91 90 Respiratory Rate 24 H 24 H Blood Pressure 89/71 L 96/71 L 97/73 L Pulse Oximetry 100 100 Oxygen Delivery Fraction of Inspired Oxygen 02/21/25 00:00 02/21/25 00:00 02/21/25 00:00 Temperature Pulse Rate 90 90 90 Respiratory Rate 24 H 24 H 24 H Blood Pressure Pulse Oximetry 100 Oxygen Delivery Mechanical Ventilation Fraction of Inspired Oxygen 40 02/21/25 00:00 02/21/25 00:00 02/21/25 00:00 Temperature Pulse Rate 90 90 Respiratory Rate 24 H Blood Pressure 97/73 L Pulse Oximetry 100 Oxygen Delivery Fraction of Inspired Oxygen 40 02/21/25 00:15 02/21/25 00:23 02/21/25 00:30 Temperature Pulse Rate 96 94 92 Respiratory Rate 21 H 24 H Blood Pressure 109/82 109/82 97/70 L Pulse Oximetry 100 100 Oxygen Delivery Fraction of Inspired Oxygen 02/21/25 00:45 02/21/25 01:00 02/21/25 01:15 Temperature Pulse Rate 93 94 94 Respiratory Rate 24 H 24 H 24 H Blood Pressure 102/76 86/68 L 105/76 Pulse Oximetry 100 100 100 Oxygen Delivery Fraction of Inspired Oxygen 02/21/25 01:30 02/21/25 01:40 02/21/25 01:44 Temperature Pulse Rate 90 90 90 Respiratory Rate 24 H 24 H Blood Pressure 83/64 L Pulse Oximetry 100 100 Oxygen Delivery Mechanical Ventilation Fraction of Inspired Oxygen 40 02/21/25 01:46 02/21/25 01:50 02/21/25 02:00 Temperature Pulse Rate 90 90 91 Respiratory Rate 24 H 24 H 24 H Blood Pressure 89/69 L Pulse Oximetry 100 Oxygen Delivery Fraction of Inspired Oxygen 02/21/25 02:00 02/21/25 02:00 02/21/25 02:00 Temperature Pulse Rate 91 91 91 Respiratory Rate 24 H Blood Pressure 84/62 L Pulse Oximetry Oxygen Delivery Fraction of Inspired Oxygen 02/21/25 02:00 02/21/25 02:01 02/21/25 02:15 Temperature Pulse Rate 92 91 95 Respiratory Rate 24 H 24 H 24 H Blood Pressure 84/62 L 97/73 L Pulse Oximetry 100 100 100 Oxygen Delivery Fraction of Inspired Oxygen 02/21/25 04:00 02/21/25 04:00 02/21/25 04:00 Temperature 97.7 F Pulse Rate 96 Respiratory Rate 24 H Blood Pressure 115/83 Pulse Oximetry 100 Oxygen Delivery Mechanical Ventilation Fraction of Inspired Oxygen 40 40 02/21/25 04:00 02/21/25 04:00 02/21/25 04:00 Temperature Pulse Rate 96 96 96 Respiratory Rate 24 H 24 H Blood Pressure 115/83 Pulse Oximetry Oxygen Delivery Fraction of Inspired Oxygen 02/21/25 04:00 02/21/25 05:30 02/21/25 06:00 Temperature Pulse Rate 98 90 91 Respiratory Rate Blood Pressure 101/76 Pulse Oximetry 100 Oxygen Delivery Mechanical Ventilation Fraction of Inspired Oxygen 40 02/21/25 06:00 02/21/25 06:00 02/21/25 06:00 Temperature Pulse Rate 91 91 91 Respiratory Rate 24 H 24 H 24 H Blood Pressure 101/76 Pulse Oximetry 100 Oxygen Delivery Fraction of Inspired Oxygen 02/21/25 06:00 02/21/25 06:39 02/21/25 07:19 Temperature 97.6 F Pulse Rate 91 90 91 Respiratory Rate 24 H Blood Pressure 107/77 96/63 L Pulse Oximetry 100 Oxygen Delivery Fraction of Inspired Oxygen 02/21/25 07:43 02/21/25 07:43 Temperature Pulse Rate 95 95 Respiratory Rate 24 H Blood Pressure Pulse Oximetry 100 Oxygen Delivery Mechanical Ventilation Fraction of Inspired Oxygen 40 Intake/Output Intake/Output: Intake & Output 02/18/25 02/19/25 02/20/25 02/21/25 23:59 23:59 23:59 23:59 Intake Total 7304.2 5459.3667 3881.1 2440.3 Output Total 1750 1900 1600 1200 Balance 5554.2 3559.3667 2281.1 1240.3 Meds/Results Medications: Active Medications Generic Name Dose Route Start Last Admin Trade Name Freq PRN Reason Stop Dose Admin Acetaminophen 650 mg 02/17/25 20:19 02/18/25 14:31 Acetaminophen 325 Mg Tablet FEED TUBE 650 mg Q4H PRN Administration Mild Pain (1-3) or Fever Bisacodyl 10 mg 02/20/25 11:01 Bisacodyl 10 Mg Suppository RECTAL QAM PRN Constipation Dextrose 12.5 gm 02/17/25 21:35 Dextrose 50% 25 Gm/50 Ml Syringe IV PUSH PRN PRN Hypoglycemia Protocol Folic Acid 1 mg 02/19/25 09:00 02/20/25 09:55 Folic Acid 1 Mg/0.2 Ml Inj IV PUSH 1 mg QAM KENNETH Administration Glucagon 1 mg 02/17/25 21:35 Glucagon For Inj 1 Mg Vial IM PRN PRN Hypoglycemia Protocol Glucose 15 gm 02/17/25 21:35 Glucose Oral Gel 15 Gm Of Glucse In 37.5 Gm Tube PO PRN PRN Hypoglycemia Protocol Heparin Sodium (Porcine) 5,000 units 02/18/25 14:00 02/21/25 06:23 Heparin Sodium 5,000 Units/Ml Vial SUB-Q 5,000 units Q8HR KENNETH Administration Cefepime HCl 2 gm/ Sodium 50 mls @ 100 mls/hr 02/18/25 06:00 02/21/25 06:23 Chloride IVPB 100 mls/hr Q12H KENNETH Administration Fentanyl Citrate 2,500 mcg in 250 mls @ 7.5 mls/hr 02/17/25 20:10 02/21/25 06:00 Fentanyl 2,500 Mcg/Ns 250 Ml IV CONT 75 mcg/hr .[id number] KENNETH 7.5 mls/hr Protocol Titration 75 MCG/HR Midazolam HCl 100 mg in 100 mls @ 1 mls/hr 02/17/25 20:10 02/21/25 06:00 Versed 100 Mg/Ns 100 Ml IV CONT 2 mg/hr .Q72H KENNETH 2 mls/hr Protocol Titration 1 MG/HR Dextrose 1,000 mls @ 100 mls/hr 02/17/25 21:35 Dextrose 5% 1,000 Ml IVPB PRN PRN Hypoglycemia Protocol Phenylephrine HCl 50 mg/ 250 mls @ 0 mls/hr 02/18/25 05:10 02/21/25 06:39 Sodium Chloride IV CONT 0 mcg/min .Q0M KENNETH 0 mls/hr Protocol Titration Doxycycline Hyclate 100 mg/ 100 mls @ 100 mls/hr 02/18/25 08:00 02/20/25 21:15 Sodium Chloride IVPB 02/23/25 07:59 Infused Q12H KENNETH Infusion Dextrose 1,000 mls @ 125 mls/hr 02/20/25 10:05 02/21/25 02:30 Dextrose 5% 1,000 Ml IV CONT 125 mls/hr .Q8H KENNETH Administration Vancomycin HCl 2,000 mg in 500 mls @ 250 mls/hr 02/20/25 23:00 02/21/25 00:51 Vancomycin 2,000 Mg/Ns 500 Ml IVPB Infused Q12H KENNETH Infusion Potassium Phosphate 40 mmol/ 263.3333 mls @ 43.889 mls/hr 02/21/25 07:07 Sodium Chloride IVPB 02/21/25 13:06 ONCE ONE Magnesium Sulfate 2 gm in 50 mls @ 50 mls/hr 02/21/25 07:16 Magnesium Sulf 2 Gm/Water 50ml IVPB 02/21/25 08:15 ONCE ONE Insulin Aspart 3 - 6 units 02/18/25 00:00 02/21/25 05:19 Insulin Aspart (*Bkc) 100 Units/Ml SUB-Q Not Given Q4HR KENNETH Protocol Ipratropium [place] 0.5 mg 02/18/25 09:35 02/21/25 07:40 Ipratropium Br 0.02% Inh Soln 0.5 Mg/2.5 Ml Vial INHALATION 0.5 mg Q6HRT KENNETH Administration Levalbuterol HCl 0.63 mg 02/18/25 09:35 02/21/25 07:41 Levalbuterol Neb 1.25 Mg/3 Ml INHALATION 0.63 mg Q6HRT KENNETH Administration Metoclopramide HCl 10 mg 02/19/25 12:00 02/21/25 06:23 Metoclopramide Hcl Inj 10 Mg/2 Ml Vial IV PUSH 10 mg Q6HR KENNETH Administration Multi-Ingred Cream/Lotion/Oil/Oint 1 applic 02/17/25 21:00 02/20/25 20:16 Mineral Oil/White Petrolatum Ointment EACH EYE 1 applic Q12HR KENNETH Administration Pantoprazole Sodium 40 mg 02/18/25 09:00 02/20/25 20:16 Pantoprazole Sodium Iv 40 Mg Vial IV PUSH 40 mg Q12HR KENNETH Administration Senna/Docusate Sodium 1 tab 02/17/25 21:00 02/20/25 20:15 Senna/Docusate Sodium Tablet FEED TUBE 1 tab HS KENNETH Administration Sodium Chloride 10 ml 02/18/25 22:00 02/21/25 06:25 Central Line Flush IV PUSH 10 ml Q8HR KENNETH Administration Sodium Chloride 20 ml 02/18/25 16:07 02/20/25 05:33 Central Line Flush IV PUSH 20 ml PRN PRN Administration after blood draws Thiamine HCl 100 mg 02/19/25 09:00 02/20/25 07:44 Thiamine Hcl 200 Mg/2 Ml Vial IV PUSH 100 mg QAM KENNETH Administration Radiology Results: ITS Impressions Head CT 02/17/25 16:55 IMPRESSION: 1. No acute intracranial hemorrhage. No mass effect. 2. Probable chronic ischemic white matter change. Chest/Abdomen/Pelvis CT 02/17/25 17:11 IMPRESSION: 1. Moderate sized groundglass opacities scattered throughout both lungs most prominent in the lower lobes. In addition, there are small to moderate sized patchy consolidations scattered throughout both lungs most prominent in the lower lobes. The findings are concerning for multilobar pneumonia. Other etiologies are possible but are felt to be less likely. Recommend follow-up to resolution. 2.There is a Daniels catheter in the bladder. Mild concentric thickening of the calvo of the bladder. Small amount of nondependent air in the bladder which may be due to recent instrumentation or cystitis. 3. Large amount of stool in the rectum. 4. The stomach is distended and filled with air. 5. Small amount of fat stranding with a few locules of air about the posterior aspect of the mid and distal sacrum. No obvious loculated fluid collection identified. No convincing CT evidence for sacral osteomyelitis at this time. Abdomen Ultrasound 02/19/25 13:00 Impression: Limited study. No acute process Abdomen X-Ray 02/20/25 10:54 IMPRESSION: 1. No acute abdominal abnormality. 2: Bibasilar infiltrates may represent edema or pneumonia. Renal Ultrasound 02/20/25 17:18 IMPRESSION: 1. Normal kidneys without hydronephrosis. 2. Diffuse trabeculated bladder wall thickening suggestive of sequela of chronic outlet obstruction. Labs Labs: Laboratory Results - last 24 hr 02/20/25 02/20/25 02/20/25 07:58 11:16 11:20 WBC RBC Hgb Hct MCV MCH MCHC RDW Plt Count MPV Immature Gran % (Auto) Neut % (Auto) Lymph % (Auto) [place] % (Auto) Eos % (Auto) Baso % (Auto) Lymph # (Auto) [place] # (Auto) Eos # (Auto) Baso # (Auto) Abs Immat Gran (auto) Absolute Neuts (auto) Absolute Nucleated RBC Band Neutrophils % Nucleated RBC % Platelet Estimate Clumped Platelets Hypochromasia Anisocytosis Ovalocytes Schistocytes Puncture Site ABG pH ABG pCO2 ABG pO2 ABG PO2/FiO2 Ratio ABG HCO3 ABG O2 Saturation ABG O2 Content ABG Base Excess A-a Gradient Oxyhemoglobin Carboxyhemoglobin Methemoglobin Reduced Hemoglobin Total Hemoglobin O2 Delivery Device O2 Liters/Min Minute Volume Vent Rate Vent Mode FiO2 Tidal Volume PEEP Peak Inspir Pressure Pressure Support Sodium 157 H Potassium 3.5 Chloride 123 H Carbon Dioxide 17 L Anion Gap 17 H BUN 21 H Creatinine 0.59 L Estim Creat Clear Calc 95 Estimated GFR > 60 Glucose 130 H POC Capillary Glucose Lactic Acid Calcium 8.9 Phosphorus Magnesium Total Bilirubin AST ALT Alkaline Phosphatase Total Protein Albumin Beta-Hydroxybutyrate/Acetoacetate 7.15 H Urine Color Urine Appearance Urine pH Ur Specific [place] Urine Protein Urine Glucose (UA) Urine Ketones Ur Blood (Man) Urine Nitrate Urine Bilirubin Urine Urobilinogen Ur Leukocyte Esterase Add Ur Microanalysis Urine RBC Urine WBC Ur Squamous Epith Cells Urine Bacteria Urine Casts Granular Casts Urine Eosinophils Rare Ur Random Sodium 41 Ur Random Potassium 39.5 Urine Creatinine 21.5 Vancomycin Trough 02/20/25 02/20/25 02/20/25 11:50 11:58 17:12 WBC RBC Hgb Hct MCV MCH MCHC RDW Plt Count MPV Immature Gran % (Auto) Neut % (Auto) Lymph % (Auto) [place] % (Auto) Eos % (Auto) Baso % (Auto) Lymph # (Auto) [place] # (Auto) Eos # (Auto) Baso # (Auto) Abs Immat Gran (auto) Absolute Neuts (auto) Absolute Nucleated RBC Band Neutrophils % Nucleated RBC % Platelet Estimate Clumped Platelets Hypochromasia Anisocytosis Ovalocytes Schistocytes Puncture Site ABG pH ABG pCO2 ABG pO2 ABG PO2/FiO2 Ratio ABG HCO3 ABG O2 Saturation ABG O2 Content ABG Base Excess A-a Gradient Oxyhemoglobin Carboxyhemoglobin Methemoglobin Reduced Hemoglobin Total Hemoglobin O2 Delivery Device O2 Liters/Min Minute Volume Vent Rate Vent Mode FiO2 Tidal Volume PEEP Peak Inspir Pressure Pressure Support Sodium Potassium Chloride Carbon Dioxide Anion Gap BUN Creatinine Estim Creat Clear Calc Estimated GFR Glucose POC Capillary Glucose 135 H 159 H Lactic Acid Calcium Phosphorus Magnesium Total Bilirubin AST ALT Alkaline Phosphatase Total Protein Albumin Beta-Hydroxybutyrate/Acetoacetate Urine Color Yellow Urine Appearance Cloudy H Urine pH 5.5 Ur Specific [place] 1.025 Urine Protein 1+ H Urine Glucose (UA) 3+ H Urine Ketones 4+ H Ur Blood (Man) Negative Urine Nitrate Negative Urine Bilirubin Negative Urine Urobilinogen 1.0 Ur Leukocyte Esterase Negative Add Ur Microanalysis Reviewed Urine RBC 0-2 Urine WBC 0-5 Ur Squamous Epith Cells Occasional Urine Bacteria None seen Urine Casts 6-10 Granular Casts Present Urine Eosinophils Ur Random Sodium Ur Random Potassium Urine Creatinine Vancomycin Trough 02/20/25 02/20/25 02/20/25 17:47 20:09 21:41 WBC RBC Hgb Hct MCV MCH MCHC RDW Plt Count MPV Immature Gran % (Auto) Neut % (Auto) Lymph % (Auto) [place] % (Auto) Eos % (Auto) Baso % (Auto) Lymph # (Auto) [place] # (Auto) Eos # (Auto) Baso # (Auto) Abs Immat Gran (auto) Absolute Neuts (auto) Absolute Nucleated RBC Band Neutrophils % Nucleated RBC % Platelet Estimate Clumped Platelets Hypochromasia Anisocytosis Ovalocytes Schistocytes Puncture Site ABG pH ABG pCO2 ABG pO2 ABG PO2/FiO2 Ratio ABG HCO3 ABG O2 Saturation ABG O2 Content ABG Base Excess A-a Gradient Oxyhemoglobin Carboxyhemoglobin Methemoglobin Reduced Hemoglobin Total Hemoglobin O2 Delivery Device O2 Liters/Min Minute Volume Vent Rate Vent Mode FiO2 Tidal Volume PEEP Peak Inspir Pressure Pressure Support Sodium 152 H Potassium 3.2 L Chloride 121 H Carbon Dioxide 17 L Anion Gap 14 H BUN 21 H Creatinine 0.60 L Estim Creat Clear Calc 94 Estimated GFR > 60 Glucose 179 H POC Capillary Glucose 145 H Lactic Acid Calcium 8.7 Phosphorus 2.1 L Magnesium 2.1 Total Bilirubin AST ALT Alkaline Phosphatase Total Protein Albumin 2.8 L Beta-Hydroxybutyrate/Acetoacetate Urine Color Urine Appearance Urine pH Ur Specific [place] Urine Protein Urine Glucose (UA) Urine Ketones Ur Blood (Man) Urine Nitrate Urine Bilirubin Urine Urobilinogen Ur Leukocyte Esterase Add Ur Microanalysis Urine RBC Urine WBC Ur Squamous Epith Cells Urine Bacteria Urine Casts Granular Casts Urine Eosinophils Ur Random Sodium Ur Random Potassium Urine Creatinine Vancomycin Trough 8.8 L 02/21/25 02/21/25 02/21/25 00:14 05:06 05:08 WBC RBC Hgb Hct MCV MCH MCHC RDW Plt Count MPV Immature Gran % (Auto) Neut % (Auto) Lymph % (Auto) [place] % (Auto) Eos % (Auto) Baso % (Auto) Lymph # (Auto) [place] # (Auto) Eos # (Auto) Baso # (Auto) Abs Immat Gran (auto) Absolute Neuts (auto) Absolute Nucleated RBC Band Neutrophils % Nucleated RBC % Platelet Estimate Clumped Platelets Hypochromasia Anisocytosis Ovalocytes Schistocytes Puncture Site Right radial ABG pH 7.365 ABG pCO2 31.8 L ABG pO2 42.2 L* ABG PO2/FiO2 Ratio 1.06 ABG HCO3 17.8 L ABG O2 Saturation 77.0 L* ABG O2 Content 10.1 L ABG Base Excess -6.8 A-a Gradient 206.4 Oxyhemoglobin 77.4 L* Carboxyhemoglobin 0.3 Methemoglobin 0.2 Reduced Hemoglobin 22.1 H Total Hemoglobin 9.3 L O2 Delivery Device Ventilator O2 Liters/Min Not Reportable Minute Volume 7.3 Vent Rate 24 Vent Mode Cmv FiO2 40 Tidal Volume Not Reportable PEEP 10 Peak Inspir Pressure Not Reportable Pressure Support 40 Sodium Potassium Chloride Carbon Dioxide Anion Gap BUN Creatinine Estim Creat Clear Calc Estimated GFR Glucose POC Capillary Glucose 172 H 193 H Lactic Acid Calcium Phosphorus Magnesium Total Bilirubin AST ALT Alkaline Phosphatase Total Protein Albumin Beta-Hydroxybutyrate/Acetoacetate Urine Color Urine Appearance Urine pH Ur Specific [place] Urine Protein Urine Glucose (UA) Urine Ketones Ur Blood (Man) Urine Nitrate Urine Bilirubin Urine Urobilinogen Ur Leukocyte Esterase Add Ur Microanalysis Urine RBC Urine WBC Ur Squamous Epith Cells Urine Bacteria Urine Casts Granular Casts Urine Eosinophils Ur Random Sodium Ur Random Potassium Urine Creatinine Vancomycin Trough 02/21/25 02/21/25 05:09 07:10 WBC 15.8 H RBC 3.43 L Hgb 8.9 L Hct 28.1 L MCV 81.9 MCH 25.9 L MCHC 31.7 L RDW 17.3 H Plt Count 173 MPV 9.3 Immature Gran % (Auto) 1.3 H Neut % (Auto) 89.0 H Lymph % (Auto) 5.3 L [place] % (Auto) 3.9 Eos % (Auto) 0.3 Baso % (Auto) 0.2 Lymph # (Auto) 0.84 L [place] # (Auto) 0.6 Eos # (Auto) 0.0 Baso # (Auto) 0.0 Abs Immat Gran (auto) 0.20 H Absolute Neuts (auto) 14.1 H Absolute Nucleated RBC 0.030 H Band Neutrophils % Not Reportable Nucleated RBC % 0.2 Platelet Estimate Slightly decreased Clumped Platelets Present Hypochromasia 1+ Anisocytosis 1+ Ovalocytes 1+ Schistocytes None seen Puncture Site ABG pH ABG pCO2 ABG pO2 ABG PO2/FiO2 Ratio ABG HCO3 ABG O2 Saturation ABG O2 Content ABG Base Excess A-a Gradient Oxyhemoglobin Carboxyhemoglobin Methemoglobin Reduced Hemoglobin Total Hemoglobin O2 Delivery Device O2 Liters/Min Minute Volume Vent Rate Vent Mode FiO2 Tidal Volume PEEP Peak Inspir Pressure Pressure Support Sodium 149 H Potassium 3.6 Chloride 120 H Carbon Dioxide 20 L Anion Gap 9 BUN 20 Creatinine 0.41 L Estim Creat Clear Calc 132 Estimated GFR > 60 Glucose 205 H POC Capillary Glucose 178 H Lactic Acid 1.2 Calcium 8.4 Phosphorus 2.0 L Magnesium 1.9 Total Bilirubin 0.6 AST 164 H ALT 229 H Alkaline Phosphatase 236 H Total Protein 5.5 L Albumin 2.7 L Beta-Hydroxybutyrate/Acetoacetate Urine Color Urine Appearance Urine pH Ur Specific [place] Urine Protein Urine Glucose (UA) Urine Ketones Ur Blood (Man) Urine Nitrate Urine Bilirubin Urine Urobilinogen Ur Leukocyte Esterase Add Ur Microanalysis Urine RBC Urine WBC Ur Squamous Epith Cells Urine Bacteria Urine Casts Granular Casts Urine Eosinophils Ur Random Sodium Ur Random Potassium Urine Creatinine Vancomycin Trough Quality VTE Prophylaxis VTE prophylaxis: pharmacologic ordered
[2025-02-21] MEDS: DOXYCYCLINE IV 100 MG in SODIUM CHLORIDE 0.9% IV 100 ML IVPB ×2 (08:49→20:26)
[2025-02-21] MEDS: THIAMINE HCL 200 MG/2 ML VIAL 100 MG IV PUSH (08:51)
[2025-02-21] MEDS: PANTOPRAZOLE SODIUM IV 40 MG VIAL IV PUSH ×2 (08:51→20:22)
[2025-02-21] MEDS: POTASSIUM PHOS,M-BASIC-D-BASIC 40 MMOL in SODIUM CHLORIDE 0.9% IV 250 ML 43.89 MMOL IVPB ×2 (08:52→17:37)
[2025-02-21] MEDS: MAGNESIUM SULF 2 GM/WATER 50ML 2 GM/50 ML BAG IVPB (08:52)
[2025-02-21] MEDS: POTASSIUM CHLORIDE 20 MEQ PACKET (FOR LIQUID) PO (08:52)
[2025-02-21] MEDS: MINERAL OIL/WHITE PETROLATUM OINTMENT 1 APPLIC EACH EYE ×2 (08:53→20:22)
[2025-02-21] MEDS: FOLIC ACID 1 MG/0.2 ML INJ IV PUSH (09:03)
--- NOTE | 2025-02-21 09:56 | P.PNNP_ITS ---
Progress Note: A&P Assessment and Plan (1) Polyuria: Code(s): R35.89 - Other polyuria Status: Acute Assessment and Plan: the patient has polyuria. this has improved over the last day or so. U.O. was lower yesterday. 1900 2d ago, 1600 yesterday. He does have sugar in his urine. his blood sugars have been good. He has been off the empagliflozin since admission. Since he was unable to eat at all I wonder if he was even getting his medications before he came in. The glucosuria can last 2-3 days after stopping the empagliflozin. diabetes insipidus could be the case. however, his Urine SG is 1.025, making DI likely not an issue. osmolality values are send out so it will be a few days before these come back. Sodium level is high because of the free water deficit. He is getting D5W and his sodium level has improved to 149. We can continue this. long discussion with Dr. Naylor (2) Metabolic acidosis: Code(s): E87.20 - Acidosis, unspecified Status: Acute Assessment and Plan: The patient has metabolic acidosis. His anion gap is 17. Back in November his anion gap was 10 which I assume is his baseline. This started out as a lactic acidosis and possibly ketoacidosis from starvation. now the lactic acid is normal But the ketones are still high. He received D5W and his anion gap is better, likely because the ketosis is improved from the sugar. Will continue D5W. The CO2 level has come probably because he is metabolizing the ketones. (3) Hypernatremia: Code(s): E87.0 - Hyperosmolality and hypernatremia Status: Acute Assessment and Plan: Sodium level has crept up during the hospital stay. This is from free water deficit. Will continue hypotonic fluid resuscitation (4) Septic shock: Code(s): A41.9 - Sepsis, unspecified organism; R65.21 - Severe sepsis with septic shock Status: Acute Assessment and Plan: his blood pressure is better. He is off the pressors now. (5) Hypokalemia: Code(s): E87.6 - Hypokalemia Status: Acute Assessment and Plan: Patient's potassium and phosphorus are both low. I agree that this is likely from refeeding. Continuing resuscitation of these electrolytes. (6) Glucosuria: Code(s): R81 - Glycosuria Status: Acute Assessment and Plan: he was on empagliflozin. Glucosuria from this medication come last for 2 or 3 days after the medicines stopped. 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 It might be prudent to stay off of metformin going forward (8) Elevated lipids: Code(s): E78.5 - Hyperlipidemia, unspecified Status: Acute Assessment and Plan: the patient is not on a statin (9) Hypertension: Code(s): I10 - Essential (primary) hypertension Status: Acute Assessment and Plan: blood pressure meds have been held (10) Anemia: Code(s): D64.9 - Anemia, unspecified Status: Acute Assessment and Plan: Will follow this. Hemoglobin is lower. Some of this is likely due to dilution and some due to the renal failure. His creatinine has improved. Will see how the number is tomorrow. Consider Epogen if still lower Subjective Date/time seen: 02/21/25 09:57 Interval history: Patient looks better overall. Pressors are off. Still sedated and on the ventilator Review of Systems Cardiovascular: Cardiovascular: Reports no additional cardiovascular complaints Respiratory: Respiratory: Reports no additional respiratory complaints Gastrointestinal: Gastrointestinal: Reports no additional gastrointestinal complaints Genitourinary: Genitourinary: Reports no additional male genitourinary complaints Exam Narrative: WDWN in NAD skin no rash head ncat lungs clear cor reg no rub abd BS+ nontender and soft ext no edema. Objective Data Vital Signs Vital Signs: Vital Signs - 24 hr 02/20/25 10:02/20/25 10:02/20/25 10:00 Temperature Pulse Rate 113 H 113 H 113 H Respiratory Rate 24 H 24 H Blood Pressure 103/69 Pulse Oximetry Oxygen Delivery Fraction of Inspired Oxygen 02/20/25 10:02/20/25 10:00 02/20/25 10:32 Temperature 99.9 F H Pulse Rate 107 H 106 H 107 H Respiratory Rate 24 H Blood Pressure 103/64 100/66 Pulse Oximetry 100 Oxygen Delivery Fraction of Inspired Oxygen 02/20/25 11:52 02/20/25 12:00 02/20/25 12:00 Temperature Pulse Rate 103 H 104 H 104 H Respiratory Rate 24 H Blood Pressure Pulse Oximetry 100 99 Oxygen Delivery Mechanical Ventilation Mechanical Ventilation Fraction of Inspired Oxygen 40 40 02/20/25 12:00 02/20/25 12:00 02/20/25 12:00 Temperature 99 F Pulse Rate 104 H 104 H Respiratory Rate 24 H 24 H Blood Pressure 103/70 Pulse Oximetry 99 Oxygen Delivery Fraction of Inspired Oxygen 40 02/20/25 12:00 02/20/25 12:00 02/20/25 14:00 Temperature Pulse Rate 104 H 104 H 99 Respiratory Rate 24 H Blood Pressure 103/70 Pulse Oximetry Oxygen Delivery Fraction of Inspired Oxygen 02/20/25 14:00 02/20/25 14:00 02/20/25 14:00 Temperature Pulse Rate 99 99 99 Respiratory Rate 24 H 24 H Blood Pressure 104/74 97/72 L Pulse Oximetry 100 Oxygen Delivery Fraction of Inspired Oxygen 02/20/25 14:00 02/20/25 14:06 02/20/25 14:12 Temperature Pulse Rate 99 99 99 Respiratory Rate 24 H 24 H Blood Pressure Pulse Oximetry 100 Oxygen Delivery Mechanical Ventilation Fraction of Inspired Oxygen 40 02/20/25 14:15 02/20/25 16:00 02/20/25 16:00 Temperature Pulse Rate 102 H 96 96 Respiratory Rate 24 H 24 H Blood Pressure Pulse Oximetry 100 Oxygen Delivery Mechanical Ventilation Fraction of Inspired Oxygen 40 02/20/25 16:00 02/20/25 16:00 02/20/25 16:00 Temperature 98.1 F Pulse Rate 96 96 Respiratory Rate 24 H 24 H Blood Pressure 102/74 Pulse Oximetry 100 Oxygen Delivery Fraction of Inspired Oxygen 40 02/20/25 16:00 02/20/25 16:00 02/20/25 17:05 Temperature Pulse Rate 96 96 98 Respiratory Rate 24 H Blood Pressure 102/74 Pulse Oximetry 100 Oxygen Delivery Mechanical Ventilation Fraction of Inspired Oxygen 40 02/20/25 18:00 02/20/25 18:00 02/20/25 20:00 Temperature 98.1 F Pulse Rate 84 84 92 Respiratory Rate 24 H 24 H Blood Pressure 106/77 Pulse Oximetry 100 Oxygen Delivery Fraction of Inspired Oxygen 02/20/25 20:00 02/20/25 20:00 02/20/25 20:00 Temperature Pulse Rate 92 92 94 Respiratory Rate 24 H 24 H Blood Pressure 127/82 Pulse Oximetry 100 Oxygen Delivery Mechanical Ventilation Fraction of Inspired Oxygen 40 02/20/25 20:00 02/20/25 20:00 02/20/25 20:00 Temperature 98 F Pulse Rate 94 94 Respiratory Rate 24 H Blood Pressure 127/82 Pulse Oximetry 100 Oxygen Delivery Fraction of Inspired Oxygen 40 02/20/25 20:22 02/20/25 20:24 02/20/25 20:32 Temperature Pulse Rate 93 93 93 Respiratory Rate 24 H 24 H Blood Pressure Pulse Oximetry 100 Oxygen Delivery Mechanical Ventilation Fraction of Inspired Oxygen 40 02/20/25 20:34 02/20/25 20:34 02/20/25 20:45 Temperature Pulse Rate 92 92 97 Respiratory Rate 24 H 24 H 24 H Blood Pressure 128/79 Pulse Oximetry 100 Oxygen Delivery Fraction of Inspired Oxygen 02/20/25 20:48 02/20/25 21:00 02/20/25 21:16 Temperature Pulse Rate 99 96 96 Respiratory Rate 24 H 24 H Blood Pressure 128/79 101/71 97/73 L Pulse Oximetry 100 100 Oxygen Delivery Fraction of Inspired Oxygen 02/20/25 21:22 02/20/25 21:22 02/20/25 21:31 Temperature Pulse Rate 96 96 96 Respiratory Rate 24 H Blood Pressure 97/73 L 97/73 L 103/76 Pulse Oximetry 100 Oxygen Delivery Fraction of Inspired Oxygen 02/20/25 21:47 02/20/25 22:00 02/20/25 22:00 Temperature Pulse Rate 95 95 95 Respiratory Rate 24 H 24 H Blood Pressure 100/73 102/76 Pulse Oximetry 100 Oxygen Delivery Fraction of Inspired Oxygen 02/20/25 22:00 02/20/25 22:00 02/20/25 22:01 Temperature Pulse Rate 95 95 95 Respiratory Rate 24 H 24 H Blood Pressure 102/76 Pulse Oximetry 100 Oxygen Delivery Fraction of Inspired Oxygen 02/20/25 22:16 02/20/25 22:31 02/20/25 22:45 Temperature Pulse Rate 94 94 94 Respiratory Rate 24 H 24 H Blood Pressure 107/76 108/82 107/81 Pulse Oximetry 100 100 Oxygen Delivery Fraction of Inspired Oxygen 02/20/25 22:45 02/20/25 23:00 02/20/25 23:15 Temperature Pulse Rate 94 93 92 Respiratory Rate 24 H 24 H 24 H Blood Pressure 107/81 91/67 L 93/73 L Pulse Oximetry 100 100 100 Oxygen Delivery Fraction of Inspired Oxygen 02/20/25 23:30 02/20/25 23:30 02/20/25 23:45 Temperature Pulse Rate 92 92 91 Respiratory Rate 24 H 24 H Blood Pressure 89/71 L 96/71 L Pulse Oximetry 100 100 100 Oxygen Delivery Mechanical Ventilation Fraction of Inspired Oxygen 40 02/21/25 00:00 02/21/25 00:00 02/21/25 00:00 Temperature Pulse Rate 90 90 90 Respiratory Rate 24 H 24 H Blood Pressure 97/73 L Pulse Oximetry Oxygen Delivery Fraction of Inspired Oxygen 02/21/25 00:00 02/21/25 00:00 02/21/25 00:00 Temperature Pulse Rate 90 90 Respiratory Rate 24 H Blood Pressure Pulse Oximetry 100 Oxygen Delivery Mechanical Ventilation Fraction of Inspired Oxygen 40 40 02/21/25 00:00 02/21/25 00:15 02/21/25 00:23 Temperature Pulse Rate 90 96 94 Respiratory Rate 24 H 21 H Blood Pressure 97/73 L 109/82 109/82 Pulse Oximetry 100 100 Oxygen Delivery Fraction of Inspired Oxygen 02/21/25 00:30 02/21/25 00:45 02/21/25 01:00 Temperature Pulse Rate 92 93 94 Respiratory Rate 24 H 24 H 24 H Blood Pressure 97/70 L 102/76 86/68 L Pulse Oximetry 100 100 100 Oxygen Delivery Fraction of Inspired Oxygen 02/21/25 01:15 02/21/25 01:30 02/21/25 01:40 Temperature Pulse Rate 94 90 90 Respiratory Rate 24 H 24 H 24 H Blood Pressure 105/76 83/64 L Pulse Oximetry 100 100 Oxygen Delivery Fraction of Inspired Oxygen 02/21/25 01:44 02/21/25 01:46 02/21/25 01:50 Temperature Pulse Rate 90 90 90 Respiratory Rate 24 H 24 H Blood Pressure 89/69 L Pulse Oximetry 100 100 Oxygen Delivery Mechanical Ventilation Fraction of Inspired Oxygen 40 02/21/25 02:00 02/21/25 02:00 02/21/25 02:00 Temperature Pulse Rate 91 91 91 Respiratory Rate 24 H 24 H Blood Pressure 84/62 L Pulse Oximetry Oxygen Delivery Fraction of Inspired Oxygen 02/21/25 02:00 02/21/25 02:00 02/21/25 02:01 Temperature Pulse Rate 91 92 91 Respiratory Rate 24 H 24 H Blood Pressure 84/62 L Pulse Oximetry 100 100 Oxygen Delivery Fraction of Inspired Oxygen 02/21/25 02:15 02/21/25 04:00 02/21/25 04:00 Temperature Pulse Rate 95 Respiratory Rate 24 H Blood Pressure 97/73 L Pulse Oximetry 100 Oxygen Delivery Mechanical Ventilation Fraction of Inspired Oxygen 40 40 02/21/25 04:00 02/21/25 04:00 02/21/25 04:00 Temperature 97.7 F Pulse Rate 96 96 96 Respiratory Rate 24 H 24 H Blood Pressure 115/83 115/83 Pulse Oximetry 100 Oxygen Delivery Fraction of Inspired Oxygen 02/21/25 04:00 02/21/25 04:00 02/21/25 05:30 Temperature Pulse Rate 96 98 90 Respiratory Rate 24 H Blood Pressure Pulse Oximetry 100 Oxygen Delivery Mechanical Ventilation Fraction of Inspired Oxygen 40 02/21/25 06:00 02/21/25 06:00 02/21/25 06:00 Temperature Pulse Rate 91 91 91 Respiratory Rate 24 H 24 H Blood Pressure 101/76 Pulse Oximetry Oxygen Delivery Fraction of Inspired Oxygen 02/21/25 06:00 02/21/25 06:00 02/21/25 06:39 Temperature Pulse Rate 91 91 90 Respiratory Rate 24 H Blood Pressure 101/76 107/77 Pulse Oximetry 100 Oxygen Delivery Fraction of Inspired Oxygen 02/21/25 07:19 02/21/25 07:43 02/21/25 07:43 Temperature 97.6 F Pulse Rate 91 95 95 Respiratory Rate 24 H 24 H Blood Pressure 96/63 L Pulse Oximetry 100 100 Oxygen Delivery Mechanical Ventilation Fraction of Inspired Oxygen 40 02/21/25 07:55 02/21/25 08:00 02/21/25 08:00 Temperature Pulse Rate 98 Respiratory Rate 24 H Blood Pressure Pulse Oximetry Oxygen Delivery Mechanical Ventilation Fraction of Inspired Oxygen 40 40 02/21/25 08:18 02/21/25 08:18 Temperature Pulse Rate 95 95 Respiratory Rate 24 H 24 H Blood Pressure Pulse Oximetry Oxygen Delivery Fraction of Inspired Oxygen Intake/Output Intake/Output: Intake & Output 02/18/25 02/19/25 02/20/25 02/21/25 23:59 23:59 23:59 23:59 Intake Total 7304.2 5459.3667 3881.1 2462.2 Output Total 1750 1900 1600 1200 Balance 5554.2 3559.3667 2281.1 1262.2 Meds/Results Medications: Active Medications Generic Name Dose Route Start Last Admin Trade Name Freq PRN Reason Stop Dose Admin Acetaminophen 650 mg 02/17/25 20:19 02/18/25 14:31 Acetaminophen 325 Mg Tablet FEED TUBE 650 mg Q4H PRN Administration Mild Pain (1-3) or Fever Bisacodyl 10 mg 02/20/25 11:01 Bisacodyl 10 Mg Suppository RECTAL QAM PRN Constipation Dextrose 12.5 gm 02/17/25 21:35 Dextrose 50% 25 Gm/50 Ml Syringe IV PUSH PRN PRN Hypoglycemia Protocol Folic Acid 1 mg 02/19/25 09:00 02/21/25 09:03 Folic Acid 1 Mg/0.2 Ml Inj IV PUSH 1 mg QAM KENNETH Administration Glucagon 1 mg 02/17/25 21:35 Glucagon For Inj 1 Mg Vial IM PRN PRN Hypoglycemia Protocol Glucose 15 gm 02/17/25 21:35 Glucose Oral Gel 15 Gm Of Glucse In 37.5 Gm Tube PO PRN PRN Hypoglycemia Protocol Heparin Sodium (Porcine) 5,000 units 02/18/25 14:00 02/21/25 06:23 Heparin Sodium 5,000 Units/Ml Vial SUB-Q 5,000 units Q8HR KENNETH Administration Cefepime HCl 2 gm/ Sodium 50 mls @ 100 mls/hr 02/18/25 06:00 02/21/25 06:23 Chloride IVPB 100 mls/hr Q12H KENNETH Administration Fentanyl Citrate 2,500 mcg in 250 mls @ 0 mls/hr 02/17/25 20:10 02/21/25 08:18 Fentanyl 2,500 Mcg/Ns 250 Ml IV CONT 0 mcg/hr .Q0M KENNETH 0 mls/hr Protocol Titration Midazolam HCl 100 mg in 100 mls @ 0 mls/hr 02/17/25 20:10 02/21/25 08:18 Versed 100 Mg/Ns 100 Ml IV CONT 0 mg/hr .Q0M KENNETH 0 mls/hr Protocol Titration Dextrose 1,000 mls @ 100 mls/hr 02/17/25 21:35 Dextrose 5% 1,000 Ml IVPB PRN PRN Hypoglycemia Protocol Phenylephrine HCl 50 mg/ 250 mls @ 0 mls/hr 02/18/25 05:10 02/21/25 06:39 Sodium Chloride IV CONT 0 mcg/min .Q0M KENNETH 0 mls/hr Protocol Titration Doxycycline Hyclate 100 mg/ 100 mls @ 100 mls/hr 02/18/25 08:00 02/21/25 08:49 Sodium Chloride IVPB 02/23/25 07:59 100 mls/hr Q12H KENNETH Administration Dextrose 1,000 mls @ 125 mls/hr 02/20/25 10:05 02/21/25 02:30 Dextrose 5% 1,000 Ml IV CONT 125 mls/hr .Q8H KENNETH Administration Vancomycin HCl 2,000 mg in 500 mls @ 250 mls/hr 02/20/25 23:00 02/21/25 00:51 Vancomycin 2,000 Mg/Ns 500 Ml IVPB Infused Q12H KENNETH Infusion Potassium Phosphate 40 mmol/ 263.3333 mls @ 43.889 mls/hr 02/21/25 07:07 02/21/25 08:52 Sodium Chloride IVPB 02/21/25 13:06 43.89 mls/hr ONCE ONE Administration Insulin Aspart 3 - 6 units 02/18/25 00:00 02/21/25 08:51 Insulin Aspart (*Bkc) 100 Units/Ml SUB-Q Not Given Q4HR KENNETH Protocol Ipratropium [place] 0.5 mg 02/18/25 09:35 02/21/25 07:40 Ipratropium Br 0.02% Inh Soln 0.5 Mg/2.5 Ml Vial INHALATION 0.5 mg Q6HRT KENNETH Administration Levalbuterol HCl 0.63 mg 02/18/25 09:35 02/21/25 07:41 Levalbuterol Neb 1.25 Mg/3 Ml INHALATION 0.63 mg Q6HRT KENNETH Administration Metoclopramide HCl 10 mg 02/19/25 12:00 02/21/25 06:23 Metoclopramide Hcl Inj 10 Mg/2 Ml Vial IV PUSH 10 mg Q6HR KENNETH Administration Multi-Ingred Cream/Lotion/Oil/Oint 1 applic 02/17/25 21:00 02/21/25 08:53 Mineral Oil/White Petrolatum Ointment EACH EYE 1 applic Q12HR KENNETH Administration Pantoprazole Sodium 40 mg 02/18/25 09:00 02/21/25 08:51 Pantoprazole Sodium Iv 40 Mg Vial IV PUSH 40 mg Q12HR KENNETH Administration Polyethylene Glycol 17 gm 02/21/25 09:00 02/21/25 08:51 Polyethylene Glycol 3350 17 Gm Powd.Pack PO 17 gm QAM KENNETH Administration Senna/Docusate Sodium 1 tab 02/17/25 21:00 02/20/25 20:15 Senna/Docusate Sodium Tablet FEED TUBE 1 tab HS KENNETH Administration Sodium Chloride 10 ml 02/18/25 22:00 02/21/25 06:25 Central Line Flush IV PUSH 10 ml Q8HR KENNETH Administration Sodium Chloride 20 ml 02/18/25 16:07 02/20/25 05:33 Central Line Flush IV PUSH 20 ml PRN PRN Administration after blood draws Thiamine HCl 100 mg 02/19/25 09:00 02/21/25 08:51 Thiamine Hcl 200 Mg/2 Ml Vial IV PUSH 100 mg QAM KENNETH Administration Radiology Results: ITS Impressions Head CT 02/17/25 16:55 IMPRESSION: 1. No acute intracranial hemorrhage. No mass effect. 2. Probable chronic ischemic white matter change. Chest/Abdomen/Pelvis CT 02/17/25 17:11 IMPRESSION: 1. Moderate sized groundglass opacities scattered throughout both lungs most prominent in the lower lobes. In addition, there are small to moderate sized patchy consolidations scattered throughout both lungs most prominent in the lower lobes. The findings are concerning for multilobar pneumonia. Other etiologies are possible but are felt to be less likely. Recommend follow-up to resolution. 2.There is a Daniels catheter in the bladder. Mild concentric thickening of the calvo of the bladder. Small amount of nondependent air in the bladder which may be due to recent instrumentation or cystitis. 3. Large amount of stool in the rectum. 4. The stomach is distended and filled with air. 5. Small amount of fat stranding with a few locules of air about the posterior aspect of the mid and distal sacrum. No obvious loculated fluid collection identified. No convincing CT evidence for sacral osteomyelitis at this time. Abdomen Ultrasound 02/19/25 13:00 Impression: Limited study. No acute process Abdomen X-Ray 02/20/25 10:54 IMPRESSION: 1. No acute abdominal abnormality. 2: Bibasilar infiltrates may represent edema or pneumonia. Renal Ultrasound 02/20/25 17:18 IMPRESSION: 1. Normal kidneys without hydronephrosis. 2. Diffuse trabeculated bladder wall thickening suggestive of sequela of chronic outlet obstruction. Labs Labs: Laboratory Results - last 24 hr 02/20/25 02/20/25 02/20/25 11:16 11:20 11:50 WBC RBC Hgb Hct MCV MCH MCHC RDW Plt Count MPV Immature Gran % (Auto) Neut % (Auto) Lymph % (Auto) [place] % (Auto) Eos % (Auto) Baso % (Auto) Lymph # (Auto) [place] # (Auto) Eos # (Auto) Baso # (Auto) Abs Immat Gran (auto) Absolute Neuts (auto) Absolute Nucleated RBC Band Neutrophils % Nucleated RBC % Platelet Estimate Clumped Platelets Hypochromasia Anisocytosis Ovalocytes Schistocytes Puncture Site ABG pH ABG pCO2 ABG pO2 ABG PO2/FiO2 Ratio ABG HCO3 ABG O2 Saturation ABG O2 Content ABG Base Excess A-a Gradient Oxyhemoglobin Carboxyhemoglobin Methemoglobin Reduced Hemoglobin Total Hemoglobin O2 Delivery Device O2 Liters/Min Minute Volume Vent Rate Vent Mode FiO2 Tidal Volume PEEP Peak Inspir Pressure Pressure Support Sodium 157 H Potassium 3.5 Chloride 123 H Carbon Dioxide 17 L Anion Gap 17 H BUN 21 H Creatinine 0.59 L Estim Creat Clear Calc 95 Estimated GFR > 60 Glucose 130 H POC Capillary Glucose Lactic Acid Calcium 8.9 Phosphorus Magnesium Total Bilirubin AST ALT Alkaline Phosphatase Total Protein Albumin Beta-Hydroxybutyrate/Acetoacetate 7.15 H Urine Color Yellow Urine Appearance Cloudy H Urine pH 5.5 Ur Specific [place] 1.025 Urine Protein 1+ H Urine Glucose (UA) 3+ H Urine Ketones 4+ H Ur Blood (Man) Negative Urine Nitrate Negative Urine Bilirubin Negative Urine Urobilinogen 1.0 Ur Leukocyte Esterase Negative Add Ur Microanalysis Reviewed Urine RBC 0-2 Urine WBC 0-5 Ur Squamous Epith Cells Occasional Urine Bacteria None seen Urine Casts 6-10 Granular Casts Present Vancomycin Trough 02/20/25 02/20/25 02/20/25 11:58 17:12 17:47 WBC RBC Hgb Hct MCV MCH MCHC RDW Plt Count MPV Immature Gran % (Auto) Neut % (Auto) Lymph % (Auto) [place] % (Auto) Eos % (Auto) Baso % (Auto) Lymph # (Auto) [place] # (Auto) Eos # (Auto) Baso # (Auto) Abs Immat Gran (auto) Absolute Neuts (auto) Absolute Nucleated RBC Band Neutrophils % Nucleated RBC % Platelet Estimate Clumped Platelets Hypochromasia Anisocytosis Ovalocytes Schistocytes Puncture Site ABG pH ABG pCO2 ABG pO2 ABG PO2/FiO2 Ratio ABG HCO3 ABG O2 Saturation ABG O2 Content ABG Base Excess A-a Gradient Oxyhemoglobin Carboxyhemoglobin Methemoglobin Reduced Hemoglobin Total Hemoglobin O2 Delivery Device O2 Liters/Min Minute Volume Vent Rate Vent Mode FiO2 Tidal Volume PEEP Peak Inspir Pressure Pressure Support Sodium 152 H Potassium 3.2 L Chloride 121 H Carbon Dioxide 17 L Anion Gap 14 H BUN 21 H Creatinine 0.60 L Estim Creat Clear Calc 94 Estimated GFR > 60 Glucose 179 H POC Capillary Glucose 135 H 159 H Lactic Acid Calcium 8.7 Phosphorus 2.1 L Magnesium 2.1 Total Bilirubin AST ALT Alkaline Phosphatase Total Protein Albumin 2.8 L Beta-Hydroxybutyrate/Acetoacetate Urine Color Urine Appearance Urine pH Ur Specific [place] Urine Protein Urine Glucose (UA) Urine Ketones Ur Blood (Man) Urine Nitrate Urine Bilirubin Urine Urobilinogen Ur Leukocyte Esterase Add Ur Microanalysis Urine RBC Urine WBC Ur Squamous Epith Cells Urine Bacteria Urine Casts Granular Casts Vancomycin Trough 02/20/25 02/20/25 02/21/25 20:09 21:41 00:14 WBC RBC Hgb Hct MCV MCH MCHC RDW Plt Count MPV Immature Gran % (Auto) Neut % (Auto) Lymph % (Auto) [place] % (Auto) Eos % (Auto) Baso % (Auto) Lymph # (Auto) [place] # (Auto) Eos # (Auto) Baso # (Auto) Abs Immat Gran (auto) Absolute Neuts (auto) Absolute Nucleated RBC Band Neutrophils % Nucleated RBC % Platelet Estimate Clumped Platelets Hypochromasia Anisocytosis Ovalocytes Schistocytes Puncture Site ABG pH ABG pCO2 ABG pO2 ABG PO2/FiO2 Ratio ABG HCO3 ABG O2 Saturation ABG O2 Content ABG Base Excess A-a Gradient Oxyhemoglobin Carboxyhemoglobin Methemoglobin Reduced Hemoglobin Total Hemoglobin O2 Delivery Device O2 Liters/Min Minute Volume Vent Rate Vent Mode FiO2 Tidal Volume PEEP Peak Inspir Pressure Pressure Support Sodium Potassium Chloride Carbon Dioxide Anion Gap BUN Creatinine Estim Creat Clear Calc Estimated GFR Glucose POC Capillary Glucose 145 H 172 H Lactic Acid Calcium Phosphorus Magnesium Total Bilirubin AST ALT Alkaline Phosphatase Total Protein Albumin Beta-Hydroxybutyrate/Acetoacetate Urine Color Urine Appearance Urine pH Ur Specific [place] Urine Protein Urine Glucose (UA) Urine Ketones Ur Blood (Man) Urine Nitrate Urine Bilirubin Urine Urobilinogen Ur Leukocyte Esterase Add Ur Microanalysis Urine RBC Urine WBC Ur Squamous Epith Cells Urine Bacteria Urine Casts Granular Casts Vancomycin Trough 8.8 L 02/21/25 02/21/25 02/21/25 05:06 05:08 05:09 WBC 15.8 H RBC 3.43 L Hgb 8.9 L Hct 28.1 L MCV 81.9 MCH 25.9 L MCHC 31.7 L RDW 17.3 H Plt Count 173 MPV 9.3 Immature Gran % (Auto) 1.3 H Neut % (Auto) 89.0 H Lymph % (Auto) 5.3 L [place] % (Auto) 3.9 Eos % (Auto) 0.3 Baso % (Auto) 0.2 Lymph # (Auto) 0.84 L [place] # (Auto) 0.6 Eos # (Auto) 0.0 Baso # (Auto) 0.0 Abs Immat Gran (auto) 0.20 H Absolute Neuts (auto) 14.1 H Absolute Nucleated RBC 0.030 H Band Neutrophils % Not Reportable Nucleated RBC % 0.2 Platelet Estimate Slightly decreased Clumped Platelets Present Hypochromasia 1+ Anisocytosis 1+ Ovalocytes 1+ Schistocytes None seen Puncture Site Right radial ABG pH 7.365 ABG pCO2 31.8 L ABG pO2 42.2 L* ABG PO2/FiO2 Ratio 1.06 ABG HCO3 17.8 L ABG O2 Saturation 77.0 L* ABG O2 Content 10.1 L ABG Base Excess -6.8 A-a Gradient 206.4 Oxyhemoglobin 77.4 L* Carboxyhemoglobin 0.3 Methemoglobin 0.2 Reduced Hemoglobin 22.1 H Total Hemoglobin 9.3 L O2 Delivery Device Ventilator O2 Liters/Min Not Reportable Minute Volume 7.3 Vent Rate 24 Vent Mode Cmv FiO2 40 Tidal Volume Not Reportable PEEP 10 Peak Inspir Pressure Not Reportable Pressure Support 40 Sodium 149 H Potassium 3.6 Chloride 120 H Carbon Dioxide 20 L Anion Gap 9 BUN 20 Creatinine 0.41 L Estim Creat Clear Calc 132 Estimated GFR > 60 Glucose 205 H POC Capillary Glucose 193 H Lactic Acid 1.2 Calcium 8.4 Phosphorus 2.0 L Magnesium 1.9 Total Bilirubin 0.6 AST 164 H ALT 229 H Alkaline Phosphatase 236 H Total Protein 5.5 L Albumin 2.7 L Beta-Hydroxybutyrate/Acetoacetate Urine Color Urine Appearance Urine pH Ur Specific [place] Urine Protein Urine Glucose (UA) Urine Ketones Ur Blood (Man) Urine Nitrate Urine Bilirubin Urine Urobilinogen Ur Leukocyte Esterase Add Ur Microanalysis Urine RBC Urine WBC Ur Squamous Epith Cells Urine Bacteria Urine Casts Granular Casts Vancomycin Trough 02/21/25 07:10 WBC RBC Hgb Hct MCV MCH MCHC RDW Plt Count MPV Immature Gran % (Auto) Neut % (Auto) Lymph % (Auto) [place] % (Auto) Eos % (Auto) Baso % (Auto) Lymph # (Auto) [place] # (Auto) Eos # (Auto) Baso # (Auto) Abs Immat Gran (auto) Absolute Neuts (auto) Absolute Nucleated RBC Band Neutrophils % Nucleated RBC % Platelet Estimate Clumped Platelets Hypochromasia Anisocytosis Ovalocytes Schistocytes Puncture Site ABG pH ABG pCO2 ABG pO2 ABG PO2/FiO2 Ratio ABG HCO3 ABG O2 Saturation ABG O2 Content ABG Base Excess A-a Gradient Oxyhemoglobin Carboxyhemoglobin Methemoglobin Reduced Hemoglobin Total Hemoglobin O2 Delivery Device O2 Liters/Min Minute Volume Vent Rate Vent Mode FiO2 Tidal Volume PEEP Peak Inspir Pressure Pressure Support Sodium Potassium Chloride Carbon Dioxide Anion Gap BUN Creatinine Estim Creat Clear Calc Estimated GFR Glucose POC Capillary Glucose 178 H Lactic Acid Calcium Phosphorus Magnesium Total Bilirubin AST ALT Alkaline Phosphatase Total Protein Albumin Beta-Hydroxybutyrate/Acetoacetate Urine Color Urine Appearance Urine pH Ur Specific [place] Urine Protein Urine Glucose (UA) Urine Ketones Ur Blood (Man) Urine Nitrate Urine Bilirubin Urine Urobilinogen Ur Leukocyte Esterase Add Ur Microanalysis Urine RBC Urine WBC Ur Squamous Epith Cells Urine Bacteria Urine Casts Granular Casts Vancomycin Trough
--- NOTE | 2025-02-21 10:57 | P.PNUR_ITS ---
Progress Note: A&P Assessment and Plan (1) Suprapubic catheter: Code(s): Z93.59 - Other cystostomy status Status: Acute Assessment and Plan: * No more leakage around suprapubic catheter Subjective Subjective Date/Time Seen: 02/21/25 10:57 Interval history: Intubated Review of Systems Review of Systems: ROS unobtainable: Yes unobtainable due to endotracheal tube Exam Const: General: no acute distress Resp: Effort & Inspection: normal respiratory effort GI: Inspection: non-distended GI Palp: No abdominal tenderness and No Guarding due to palpation present (GI) Auscultation: normal bowel sounds Urinary Catheter: Urinary Catheter: patent and draining and urine clear Objective Data Vital Signs Vital Signs: Vital Signs - 24 hr 02/20/25 11:52 02/20/25 12:00 02/20/25 12:00 Temperature Pulse Rate 103 H 104 H 104 H Respiratory Rate 24 H Blood Pressure Pulse Oximetry 100 99 Oxygen Delivery Mechanical Ventilation Mechanical Ventilation Fraction of Inspired Oxygen 40 40 02/20/25 12:00 02/20/25 12:00 02/20/25 12:00 Temperature 99 F Pulse Rate 104 H 104 H Respiratory Rate 24 H 24 H Blood Pressure 103/70 Pulse Oximetry 99 Oxygen Delivery Fraction of Inspired Oxygen 40 02/20/25 12:00 02/20/25 12:00 02/20/25 14:00 Temperature Pulse Rate 104 H 104 H 99 Respiratory Rate 24 H Blood Pressure 103/70 Pulse Oximetry Oxygen Delivery Fraction of Inspired Oxygen 02/20/25 14:00 02/20/25 14:00 02/20/25 14:00 Temperature Pulse Rate 99 99 99 Respiratory Rate 24 H 24 H Blood Pressure 104/74 97/72 L Pulse Oximetry 100 Oxygen Delivery Fraction of Inspired Oxygen 02/20/25 14:00 02/20/25 14:06 02/20/25 14:12 Temperature Pulse Rate 99 99 99 Respiratory Rate 24 H 24 H Blood Pressure Pulse Oximetry 100 Oxygen Delivery Mechanical Ventilation Fraction of Inspired Oxygen 40 02/20/25 14:15 02/20/25 16:00 02/20/25 16:00 Temperature Pulse Rate 102 H 96 96 Respiratory Rate 24 H 24 H Blood Pressure Pulse Oximetry 100 Oxygen Delivery Mechanical Ventilation Fraction of Inspired Oxygen 40 02/20/25 16:00 02/20/25 16:00 02/20/25 16:00 Temperature 98.1 F Pulse Rate 96 96 Respiratory Rate 24 H 24 H Blood Pressure 102/74 Pulse Oximetry 100 Oxygen Delivery Fraction of Inspired Oxygen 40 02/20/25 16:00 02/20/25 16:00 02/20/25 17:05 Temperature Pulse Rate 96 96 98 Respiratory Rate 24 H Blood Pressure 102/74 Pulse Oximetry 100 Oxygen Delivery Mechanical Ventilation Fraction of Inspired Oxygen 40 02/20/25 18:00 02/20/25 18:00 02/20/25 20:00 Temperature 98.1 F Pulse Rate 84 84 92 Respiratory Rate 24 H 24 H Blood Pressure 106/77 Pulse Oximetry 100 Oxygen Delivery Fraction of Inspired Oxygen 02/20/25 20:00 02/20/25 20:00 02/20/25 20:00 Temperature Pulse Rate 92 92 94 Respiratory Rate 24 H 24 H Blood Pressure 127/82 Pulse Oximetry 100 Oxygen Delivery Mechanical Ventilation Fraction of Inspired Oxygen 40 02/20/25 20:00 02/20/25 20:00 02/20/25 20:00 Temperature 98 F Pulse Rate 94 94 Respiratory Rate 24 H Blood Pressure 127/82 Pulse Oximetry 100 Oxygen Delivery Fraction of Inspired Oxygen 40 02/20/25 20:22 02/20/25 20:24 02/20/25 20:32 Temperature Pulse Rate 93 93 93 Respiratory Rate 24 H 24 H Blood Pressure Pulse Oximetry 100 Oxygen Delivery Mechanical Ventilation Fraction of Inspired Oxygen 40 02/20/25 20:34 02/20/25 20:34 02/20/25 20:45 Temperature Pulse Rate 92 92 97 Respiratory Rate 24 H 24 H 24 H Blood Pressure 128/79 Pulse Oximetry 100 Oxygen Delivery Fraction of Inspired Oxygen 02/20/25 20:48 02/20/25 21:00 02/20/25 21:16 Temperature Pulse Rate 99 96 96 Respiratory Rate 24 H 24 H Blood Pressure 128/79 101/71 97/73 L Pulse Oximetry 100 100 Oxygen Delivery Fraction of Inspired Oxygen 02/20/25 21:22 02/20/25 21:22 02/20/25 21:31 Temperature Pulse Rate 96 96 96 Respiratory Rate 24 H Blood Pressure 97/73 L 97/73 L 103/76 Pulse Oximetry 100 Oxygen Delivery Fraction of Inspired Oxygen 02/20/25 21:47 02/20/25 22:00 02/20/25 22:00 Temperature Pulse Rate 95 95 95 Respiratory Rate 24 H 24 H Blood Pressure 100/73 102/76 Pulse Oximetry 100 Oxygen Delivery Fraction of Inspired Oxygen 02/20/25 22:00 02/20/25 22:00 02/20/25 22:01 Temperature Pulse Rate 95 95 95 Respiratory Rate 24 H 24 H Blood Pressure 102/76 Pulse Oximetry 100 Oxygen Delivery Fraction of Inspired Oxygen 02/20/25 22:16 02/20/25 22:31 02/20/25 22:45 Temperature Pulse Rate 94 94 94 Respiratory Rate 24 H 24 H Blood Pressure 107/76 108/82 107/81 Pulse Oximetry 100 100 Oxygen Delivery Fraction of Inspired Oxygen 02/20/25 22:45 02/20/25 23:00 02/20/25 23:15 Temperature Pulse Rate 94 93 92 Respiratory Rate 24 H 24 H 24 H Blood Pressure 107/81 91/67 L 93/73 L Pulse Oximetry 100 100 100 Oxygen Delivery Fraction of Inspired Oxygen 02/20/25 23:30 02/20/25 23:30 02/20/25 23:45 Temperature Pulse Rate 92 92 91 Respiratory Rate 24 H 24 H Blood Pressure 89/71 L 96/71 L Pulse Oximetry 100 100 100 Oxygen Delivery Mechanical Ventilation Fraction of Inspired Oxygen 40 02/21/25 00:00 02/21/25 00:00 02/21/25 00:00 Temperature Pulse Rate 90 90 90 Respiratory Rate 24 H 24 H Blood Pressure 97/73 L Pulse Oximetry Oxygen Delivery Fraction of Inspired Oxygen 02/21/25 00:00 02/21/25 00:00 02/21/25 00:00 Temperature Pulse Rate 90 90 Respiratory Rate 24 H Blood Pressure Pulse Oximetry 100 Oxygen Delivery Mechanical Ventilation Fraction of Inspired Oxygen 40 40 02/21/25 00:00 02/21/25 00:15 02/21/25 00:23 Temperature Pulse Rate 90 96 94 Respiratory Rate 24 H 21 H Blood Pressure 97/73 L 109/82 109/82 Pulse Oximetry 100 100 Oxygen Delivery Fraction of Inspired Oxygen 02/21/25 00:30 02/21/25 00:45 02/21/25 01:00 Temperature Pulse Rate 92 93 94 Respiratory Rate 24 H 24 H 24 H Blood Pressure 97/70 L 102/76 86/68 L Pulse Oximetry 100 100 100 Oxygen Delivery Fraction of Inspired Oxygen 02/21/25 01:15 02/21/25 01:30 02/21/25 01:40 Temperature Pulse Rate 94 90 90 Respiratory Rate 24 H 24 H 24 H Blood Pressure 105/76 83/64 L Pulse Oximetry 100 100 Oxygen Delivery Fraction of Inspired Oxygen 02/21/25 01:44 02/21/25 01:46 02/21/25 01:50 Temperature Pulse Rate 90 90 90 Respiratory Rate 24 H 24 H Blood Pressure 89/69 L Pulse Oximetry 100 100 Oxygen Delivery Mechanical Ventilation Fraction of Inspired Oxygen 40 02/21/25 02:00 02/21/25 02:00 02/21/25 02:00 Temperature Pulse Rate 91 91 91 Respiratory Rate 24 H 24 H Blood Pressure 84/62 L Pulse Oximetry Oxygen Delivery Fraction of Inspired Oxygen 02/21/25 02:00 02/21/25 02:00 02/21/25 02:01 Temperature Pulse Rate 91 92 91 Respiratory Rate 24 H 24 H Blood Pressure 84/62 L Pulse Oximetry 100 100 Oxygen Delivery Fraction of Inspired Oxygen 02/21/25 02:15 02/21/25 04:00 02/21/25 04:00 Temperature Pulse Rate 95 Respiratory Rate 24 H Blood Pressure 97/73 L Pulse Oximetry 100 Oxygen Delivery Mechanical Ventilation Fraction of Inspired Oxygen 40 40 02/21/25 04:00 02/21/25 04:00 02/21/25 04:00 Temperature 97.7 F Pulse Rate 96 96 96 Respiratory Rate 24 H 24 H Blood Pressure 115/83 115/83 Pulse Oximetry 100 Oxygen Delivery Fraction of Inspired Oxygen 02/21/25 04:00 02/21/25 04:00 02/21/25 05:30 Temperature Pulse Rate 96 98 90 Respiratory Rate 24 H Blood Pressure Pulse Oximetry 100 Oxygen Delivery Mechanical Ventilation Fraction of Inspired Oxygen 40 02/21/25 06:00 02/21/25 06:00 02/21/25 06:00 Temperature Pulse Rate 91 91 91 Respiratory Rate 24 H 24 H Blood Pressure 101/76 Pulse Oximetry Oxygen Delivery Fraction of Inspired Oxygen 02/21/25 06:00 02/21/25 06:00 02/21/25 06:39 Temperature Pulse Rate 91 91 90 Respiratory Rate 24 H Blood Pressure 101/76 107/77 Pulse Oximetry 100 Oxygen Delivery Fraction of Inspired Oxygen 02/21/25 07:19 02/21/25 07:43 02/21/25 07:43 Temperature 97.6 F Pulse Rate 91 95 95 Respiratory Rate 24 H 24 H Blood Pressure 96/63 L Pulse Oximetry 100 100 Oxygen Delivery Mechanical Ventilation Fraction of Inspired Oxygen 40 02/21/25 07:55 02/21/25 08:00 02/21/25 08:00 Temperature Pulse Rate 98 Respiratory Rate 24 H Blood Pressure Pulse Oximetry Oxygen Delivery Mechanical Ventilation Fraction of Inspired Oxygen 40 40 02/21/25 08:18 02/21/25 08:18 02/21/25 10:48 Temperature Pulse Rate 95 95 105 H Respiratory Rate 24 H 24 H Blood Pressure Pulse Oximetry 100 Oxygen Delivery Mechanical Ventilation Fraction of Inspired Oxygen 40 Intake/Output Intake/Output: Intake & Output 02/18/25 02/19/25 02/20/25 02/21/25 23:59 23:59 23:59 23:59 Intake Total 7304.2 5459.3667 3881.1 2462.2 Output Total 1750 1900 1600 1200 Balance 5554.2 3559.3667 2281.1 1262.2 Meds/Results Medications: Active Medications Generic Name Dose Route Start Last Admin Trade Name Freq PRN Reason Stop Dose Admin Acetaminophen 650 mg 02/17/25 20:19 02/18/25 14:31 Acetaminophen 325 Mg Tablet FEED TUBE 650 mg Q4H PRN Administration Mild Pain (1-3) or Fever Bisacodyl 10 mg 02/20/25 11:01 Bisacodyl 10 Mg Suppository RECTAL QAM PRN Constipation Dextrose 12.5 gm 02/17/25 21:35 Dextrose 50% 25 Gm/50 Ml Syringe IV PUSH PRN PRN Hypoglycemia Protocol Folic Acid 1 mg 02/19/25 09:00 02/21/25 09:03 Folic Acid 1 Mg/0.2 Ml Inj IV PUSH 1 mg QAM KENNETH Administration Glucagon 1 mg 02/17/25 21:35 Glucagon For Inj 1 Mg Vial IM PRN PRN Hypoglycemia Protocol Glucose 15 gm 02/17/25 21:35 Glucose Oral Gel 15 Gm Of Glucse In 37.5 Gm Tube PO PRN PRN Hypoglycemia Protocol Heparin Sodium (Porcine) 5,000 units 02/18/25 14:00 02/21/25 06:23 Heparin Sodium 5,000 Units/Ml Vial SUB-Q 5,000 units Q8HR KENNETH Administration Cefepime HCl 2 gm/ Sodium 50 mls @ 100 mls/hr 02/18/25 06:00 02/21/25 06:23 Chloride IVPB 100 mls/hr Q12H KENNETH Administration Fentanyl Citrate 2,500 mcg in 250 mls @ 0 mls/hr 02/17/25 20:10 02/21/25 08:18 Fentanyl 2,500 Mcg/Ns 250 Ml IV CONT 0 mcg/hr .Q0M KENNETH 0 mls/hr Protocol Titration Midazolam HCl 100 mg in 100 mls @ 0 mls/hr 02/17/25 20:10 02/21/25 08:18 Versed 100 Mg/Ns 100 Ml IV CONT 0 mg/hr .Q0M KENNETH 0 mls/hr Protocol Titration Dextrose 1,000 mls @ 100 mls/hr 02/17/25 21:35 Dextrose 5% 1,000 Ml IVPB PRN PRN Hypoglycemia Protocol Phenylephrine HCl 50 mg/ 250 mls @ 0 mls/hr 02/18/25 05:10 02/21/25 06:39 Sodium Chloride IV CONT 0 mcg/min .Q0M KENNETH 0 mls/hr Protocol Titration Doxycycline Hyclate 100 mg/ 100 mls @ 100 mls/hr 02/18/25 08:00 02/21/25 08:49 Sodium Chloride IVPB 02/23/25 07:59 100 mls/hr Q12H KENNETH Administration Dextrose 1,000 mls @ 125 mls/hr 02/20/25 10:05 02/21/25 02:30 Dextrose 5% 1,000 Ml IV CONT 125 mls/hr .Q8H KENNETH Administration Vancomycin HCl 2,000 mg in 500 mls @ 250 mls/hr 02/20/25 23:00 02/21/25 00:51 Vancomycin 2,000 Mg/Ns 500 Ml IVPB Infused Q12H KENNETH Infusion Potassium Phosphate 40 mmol/ 263.3333 mls @ 43.889 mls/hr 02/21/25 07:07 02/21/25 08:52 Sodium Chloride IVPB 02/21/25 13:06 43.89 mls/hr ONCE ONE Administration Insulin Aspart 3 - 6 units 02/18/25 00:00 02/21/25 08:51 Insulin Aspart (*Bkc) 100 Units/Ml SUB-Q Not Given Q4HR KENNETH Protocol Ipratropium [place] 0.5 mg 02/18/25 09:35 02/21/25 07:40 Ipratropium Br 0.02% Inh Soln 0.5 Mg/2.5 Ml Vial INHALATION 0.5 mg Q6HRT KENNETH Administration Levalbuterol HCl 0.63 mg 02/18/25 09:35 02/21/25 07:41 Levalbuterol Neb 1.25 Mg/3 Ml INHALATION 0.63 mg Q6HRT KENNETH Administration Metoclopramide HCl 10 mg 02/19/25 12:00 02/21/25 06:23 Metoclopramide Hcl Inj 10 Mg/2 Ml Vial IV PUSH 10 mg Q6HR KENNETH Administration Multi-Ingred Cream/Lotion/Oil/Oint 1 applic 02/17/25 21:00 02/21/25 08:53 Mineral Oil/White Petrolatum Ointment EACH EYE 1 applic Q12HR KENNETH Administration Pantoprazole Sodium 40 mg 02/18/25 09:00 02/21/25 08:51 Pantoprazole Sodium Iv 40 Mg Vial IV PUSH 40 mg Q12HR KENNETH Administration Polyethylene Glycol 17 gm 02/21/25 09:00 02/21/25 08:51 Polyethylene Glycol 3350 17 Gm Powd.Pack PO 17 gm QAM KENNETH Administration Senna/Docusate Sodium 1 tab 02/17/25 21:00 02/20/25 20:15 Senna/Docusate Sodium Tablet FEED TUBE 1 tab HS KENNETH Administration Sodium Chloride 10 ml 02/18/25 22:00 02/21/25 06:25 Central Line Flush IV PUSH 10 ml Q8HR KENNETH Administration Sodium Chloride 20 ml 02/18/25 16:07 02/20/25 05:33 Central Line Flush IV PUSH 20 ml PRN PRN Administration after blood draws Thiamine HCl 100 mg 02/19/25 09:00 02/21/25 08:51 Thiamine Hcl 200 Mg/2 Ml Vial IV PUSH 100 mg QAM KENNETH Administration Radiology Results: ITS Impressions Head CT 02/17/25 16:55 IMPRESSION: 1. No acute intracranial hemorrhage. No mass effect. 2. Probable chronic ischemic white matter change. Chest/Abdomen/Pelvis CT 02/17/25 17:11 IMPRESSION: 1. Moderate sized groundglass opacities scattered throughout both lungs most prominent in the lower lobes. In addition, there are small to moderate sized patchy consolidations scattered throughout both lungs most prominent in the lower lobes. The findings are concerning for multilobar pneumonia. Other etiologies are possible but are felt to be less likely. Recommend follow-up to resolution. 2.There is a Daniels catheter in the bladder. Mild concentric thickening of the calvo of the bladder. Small amount of nondependent air in the bladder which may be due to recent instrumentation or cystitis. 3. Large amount of stool in the rectum. 4. The stomach is distended and filled with air. 5. Small amount of fat stranding with a few locules of air about the posterior aspect of the mid and distal sacrum. No obvious loculated fluid collection identified. No convincing CT evidence for sacral osteomyelitis at this time. Abdomen Ultrasound 02/19/25 13:00 Impression: Limited study. No acute process Abdomen X-Ray 02/20/25 10:54 IMPRESSION: 1. No acute abdominal abnormality. 2: Bibasilar infiltrates may represent edema or pneumonia. Renal Ultrasound 02/20/25 17:18 IMPRESSION: 1. Normal kidneys without hydronephrosis. 2. Diffuse trabeculated bladder wall thickening suggestive of sequela of chronic outlet obstruction. Labs Labs: Laboratory Results - last 24 hr 02/20/25 02/20/25 02/20/25 11:16 11:20 11:50 WBC RBC Hgb Hct MCV MCH MCHC RDW Plt Count MPV Immature Gran % (Auto) Neut % (Auto) Lymph % (Auto) [place] % (Auto) Eos % (Auto) Baso % (Auto) Lymph # (Auto) [place] # (Auto) Eos # (Auto) Baso # (Auto) Abs Immat Gran (auto) Absolute Neuts (auto) Absolute Nucleated RBC Band Neutrophils % Nucleated RBC % Platelet Estimate Clumped Platelets Hypochromasia Anisocytosis Ovalocytes Schistocytes Puncture Site ABG pH ABG pCO2 ABG pO2 ABG PO2/FiO2 Ratio ABG HCO3 ABG O2 Saturation ABG O2 Content ABG Base Excess A-a Gradient Oxyhemoglobin Carboxyhemoglobin Methemoglobin Reduced Hemoglobin Total Hemoglobin O2 Delivery Device O2 Liters/Min Minute Volume Vent Rate Vent Mode FiO2 Tidal Volume PEEP Peak Inspir Pressure Pressure Support Sodium 157 H Potassium 3.5 Chloride 123 H Carbon Dioxide 17 L Anion Gap 17 H BUN 21 H Creatinine 0.59 L Estim Creat Clear Calc 95 Estimated GFR > 60 Glucose 130 H POC Capillary Glucose Lactic Acid Calcium 8.9 Phosphorus Magnesium Total Bilirubin AST ALT Alkaline Phosphatase Total Protein Albumin Beta-Hydroxybutyrate/Acetoacetate 7.15 H Urine Color Yellow Urine Appearance Cloudy H Urine pH 5.5 Ur Specific [place] 1.025 Urine Protein 1+ H Urine Glucose (UA) 3+ H Urine Ketones 4+ H Ur Blood (Man) Negative Urine Nitrate Negative Urine Bilirubin Negative Urine Urobilinogen 1.0 Ur Leukocyte Esterase Negative Add Ur Microanalysis Reviewed Urine RBC 0-2 Urine WBC 0-5 Ur Squamous Epith Cells Occasional Urine Bacteria None seen Urine Casts 6-10 Granular Casts Present Vancomycin Trough 02/20/25 02/20/25 02/20/25 11:58 17:12 17:47 WBC RBC Hgb Hct MCV MCH MCHC RDW Plt Count MPV Immature Gran % (Auto) Neut % (Auto) Lymph % (Auto) [place] % (Auto) Eos % (Auto) Baso % (Auto) Lymph # (Auto) [place] # (Auto) Eos # (Auto) Baso # (Auto) Abs Immat Gran (auto) Absolute Neuts (auto) Absolute Nucleated RBC Band Neutrophils % Nucleated RBC % Platelet Estimate Clumped Platelets Hypochromasia Anisocytosis Ovalocytes Schistocytes Puncture Site ABG pH ABG pCO2 ABG pO2 ABG PO2/FiO2 Ratio ABG HCO3 ABG O2 Saturation ABG O2 Content ABG Base Excess A-a Gradient Oxyhemoglobin Carboxyhemoglobin Methemoglobin Reduced Hemoglobin Total Hemoglobin O2 Delivery Device O2 Liters/Min Minute Volume Vent Rate Vent Mode FiO2 Tidal Volume PEEP Peak Inspir Pressure Pressure Support Sodium 152 H Potassium 3.2 L Chloride 121 H Carbon Dioxide 17 L Anion Gap 14 H BUN 21 H Creatinine 0.60 L Estim Creat Clear Calc 94 Estimated GFR > 60 Glucose 179 H POC Capillary Glucose 135 H 159 H Lactic Acid Calcium 8.7 Phosphorus 2.1 L Magnesium 2.1 Total Bilirubin AST ALT Alkaline Phosphatase Total Protein Albumin 2.8 L Beta-Hydroxybutyrate/Acetoacetate Urine Color Urine Appearance Urine pH Ur Specific [place] Urine Protein Urine Glucose (UA) Urine Ketones Ur Blood (Man) Urine Nitrate Urine Bilirubin Urine Urobilinogen Ur Leukocyte Esterase Add Ur Microanalysis Urine RBC Urine WBC Ur Squamous Epith Cells Urine Bacteria Urine Casts Granular Casts Vancomycin Trough 02/20/25 02/20/25 02/21/25 20:09 21:41 00:14 WBC RBC Hgb Hct MCV MCH MCHC RDW Plt Count MPV Immature Gran % (Auto) Neut % (Auto) Lymph % (Auto) [place] % (Auto) Eos % (Auto) Baso % (Auto) Lymph # (Auto) [place] # (Auto) Eos # (Auto) Baso # (Auto) Abs Immat Gran (auto) Absolute Neuts (auto) Absolute Nucleated RBC Band Neutrophils % Nucleated RBC % Platelet Estimate Clumped Platelets Hypochromasia Anisocytosis Ovalocytes Schistocytes Puncture Site ABG pH ABG pCO2 ABG pO2 ABG PO2/FiO2 Ratio ABG HCO3 ABG O2 Saturation ABG O2 Content ABG Base Excess A-a Gradient Oxyhemoglobin Carboxyhemoglobin Methemoglobin Reduced Hemoglobin Total Hemoglobin O2 Delivery Device O2 Liters/Min Minute Volume Vent Rate Vent Mode FiO2 Tidal Volume PEEP Peak Inspir Pressure Pressure Support Sodium Potassium Chloride Carbon Dioxide Anion Gap BUN Creatinine Estim Creat Clear Calc Estimated GFR Glucose POC Capillary Glucose 145 H 172 H Lactic Acid Calcium Phosphorus Magnesium Total Bilirubin AST ALT Alkaline Phosphatase Total Protein Albumin Beta-Hydroxybutyrate/Acetoacetate Urine Color Urine Appearance Urine pH Ur Specific [place] Urine Protein Urine Glucose (UA) Urine Ketones Ur Blood (Man) Urine Nitrate Urine Bilirubin Urine Urobilinogen Ur Leukocyte Esterase Add Ur Microanalysis Urine RBC Urine WBC Ur Squamous Epith Cells Urine Bacteria Urine Casts Granular Casts Vancomycin Trough 8.8 L 02/21/25 02/21/25 02/21/25 05:06 05:08 05:09 WBC 15.8 H RBC 3.43 L Hgb 8.9 L Hct 28.1 L MCV 81.9 MCH 25.9 L MCHC 31.7 L RDW 17.3 H Plt Count 173 MPV 9.3 Immature Gran % (Auto) 1.3 H Neut % (Auto) 89.0 H Lymph % (Auto) 5.3 L [place] % (Auto) 3.9 Eos % (Auto) 0.3 Baso % (Auto) 0.2 Lymph # (Auto) 0.84 L [place] # (Auto) 0.6 Eos # (Auto) 0.0 Baso # (Auto) 0.0 Abs Immat Gran (auto) 0.20 H Absolute Neuts (auto) 14.1 H Absolute Nucleated RBC 0.030 H Band Neutrophils % Not Reportable Nucleated RBC % 0.2 Platelet Estimate Slightly decreased Clumped Platelets Present Hypochromasia 1+ Anisocytosis 1+ Ovalocytes 1+ Schistocytes None seen Puncture Site Right radial ABG pH 7.365 ABG pCO2 31.8 L ABG pO2 42.2 L* ABG PO2/FiO2 Ratio 1.06 ABG HCO3 17.8 L ABG O2 Saturation 77.0 L* ABG O2 Content 10.1 L ABG Base Excess -6.8 A-a Gradient 206.4 Oxyhemoglobin 77.4 L* Carboxyhemoglobin 0.3 Methemoglobin 0.2 Reduced Hemoglobin 22.1 H Total Hemoglobin 9.3 L O2 Delivery Device Ventilator O2 Liters/Min Not Reportable Minute Volume 7.3 Vent Rate 24 Vent Mode Cmv FiO2 40 Tidal Volume Not Reportable PEEP 10 Peak Inspir Pressure Not Reportable Pressure Support 40 Sodium 149 H Potassium 3.6 Chloride 120 H Carbon Dioxide 20 L Anion Gap 9 BUN 20 Creatinine 0.41 L Estim Creat Clear Calc 132 Estimated GFR > 60 Glucose 205 H POC Capillary Glucose 193 H Lactic Acid 1.2 Calcium 8.4 Phosphorus 2.0 L Magnesium 1.9 Total Bilirubin 0.6 AST 164 H ALT 229 H Alkaline Phosphatase 236 H Total Protein 5.5 L Albumin 2.7 L Beta-Hydroxybutyrate/Acetoacetate Urine Color Urine Appearance Urine pH Ur Specific [place] Urine Protein Urine Glucose (UA) Urine Ketones Ur Blood (Man) Urine Nitrate Urine Bilirubin Urine Urobilinogen Ur Leukocyte Esterase Add Ur Microanalysis Urine RBC Urine WBC Ur Squamous Epith Cells Urine Bacteria Urine Casts Granular Casts Vancomycin Trough 02/21/25 07:10 WBC RBC Hgb Hct MCV MCH MCHC RDW Plt Count MPV Immature Gran % (Auto) Neut % (Auto) Lymph % (Auto) [place] % (Auto) Eos % (Auto) Baso % (Auto) Lymph # (Auto) [place] # (Auto) Eos # (Auto) Baso # (Auto) Abs Immat Gran (auto) Absolute Neuts (auto) Absolute Nucleated RBC Band Neutrophils % Nucleated RBC % Platelet Estimate Clumped Platelets Hypochromasia Anisocytosis Ovalocytes Schistocytes Puncture Site ABG pH ABG pCO2 ABG pO2 ABG PO2/FiO2 Ratio ABG HCO3 ABG O2 Saturation ABG O2 Content ABG Base Excess A-a Gradient Oxyhemoglobin Carboxyhemoglobin Methemoglobin Reduced Hemoglobin Total Hemoglobin O2 Delivery Device O2 Liters/Min Minute Volume Vent Rate Vent Mode FiO2 Tidal Volume PEEP Peak Inspir Pressure Pressure Support Sodium Potassium Chloride Carbon Dioxide Anion Gap BUN Creatinine Estim Creat Clear Calc Estimated GFR Glucose POC Capillary Glucose 178 H Lactic Acid Calcium Phosphorus Magnesium Total Bilirubin AST ALT Alkaline Phosphatase Total Protein Albumin Beta-Hydroxybutyrate/Acetoacetate Urine Color Urine Appearance Urine pH Ur Specific [place] Urine Protein Urine Glucose (UA) Urine Ketones Ur Blood (Man) Urine Nitrate Urine Bilirubin Urine Urobilinogen Ur Leukocyte Esterase Add Ur Microanalysis Urine RBC Urine WBC Ur Squamous Epith Cells Urine Bacteria Urine Casts Granular Casts Vancomycin Trough
[2025-02-21] MEDS: LACTULOSE ENEMA 200 GM/1,000 ML ENEMA RECTAL (11:10)
[2025-02-21] MEDS: VANCOMYCIN 2,000 MG/NS 500 ML 2,000 MG/500 ML BAG 250 MG IVPB (12:00)
[2025-02-21 14:13] LABS: Creatinine 24 Hour Urine 0.4 gm/24 (1.0-2.0); Total Volume 24 Hour Urine 2600 ml
--- NOTE | 2025-02-21 15:12 | P.PNIM_ITS ---
Progress Note: A&P Assessment and Plan (1) Septic shock: Code(s): A41.9 - Sepsis, unspecified organism; R65.21 - Severe sepsis with septic shock Status: Acute Assessment and Plan: 02/17: Patient presented from a halfway with AMS and SOB. WBC 17K. Bicarb 7 (AG 28). UA consistent with UTI. Lactic to 3.6 CT Ch/A/P showing ground-glass opacities throughout both lungs, thickening of bladder wall, large stool ball, distended stomach, and small amount of fat stranding with a few locules of air in the mid and distal sacrum. Sepsis with lactic acidosis, leukocytosis, resp failure, tachycardia, fever felt related to pneumonia and UTI +/- sacral decub Received 2L IV fluid bolus in ER and started on cefepime and vancomycin (02/17); Doxy added 02/18 Admitted to IMU but he decompensated and rapid response was called Patient intubated 02/17 and started on Phenylephrine for hypoxia and hypotension. BCx 02/17 - NGTD UCx 02/17 - growing GNB -> greater than 2 organisms of >100K colonies but not grown Sputum Cx 02/18 - Klebsiella pneumonia, Dolores tropicalis Central line placed and Levophed added 02/18. WBC down to 16K. Fever curve better. Acidosis better. Suspect related to Klebsiella PNA. Levophed weaned off 02/19 and phenylephrine 02/20. Monitor BP. Follow up cultures. Will see if UCx can be grown out. (2) Acute respiratory failure: Code(s): J96.00 - Acute respiratory failure, unspecified whether with hypoxia or hypercapnia Status: Acute Assessment and Plan: Patient was transferred to the ICU from IMU for acute respiratory failure and emergently intubated (02/17) Probably related to multifocal Klebsiella pneumonia CXR reviewed personally today showing multifocal airspace disease but consider he is becoming fluid overloaded. ABG 7.36/32/42 on MV - probably mixed venous gas Feed Adviser consulted and appreciate their input Vent management per clinical rehabilitation specialist (3) Multifocal pneumonia: Code(s): J18.8 - Other pneumonia, unspecified organism Status: Acute Assessment and Plan: Multifocal pneumonia by imaging. Abx as above. Follow-up on culture results (4) Acute UTI: Code(s): N39.0 - Urinary tract infection, site not specified Status: Acute Assessment and Plan: UA was positive for UTI Complicated UTI with SP catheter UCx growing GNB but 2 organisms. Continue Abx as above. Try to have Lab grow out bacteria. (5) Electrolyte imbalance: Code(s): E87.8 - Other disorders of electrolyte and fluid balance, not elsewhere classified Status: Acute Assessment and Plan: Patient with multiple electrolyte abnormalities Elevated sodium related to insensible fluid loss and was treated appropriately. Na better. Hypokalemia and hypophos noted and currently being replaced Continue to follow and replace as needed (6) Elevated LFTs: Code(s): R79.89 - Other specified abnormal findings of blood chemistry Status: Acute Assessment and Plan: LFTs elevated yesterday felt related to shock liver Abd US was limited but showing no acute hepatic disease. Levels peaked and are trending down now Follow (7) Fecal impaction: Code(s): K56.41 - Fecal impaction Status: Acute Assessment and Plan: CT showing large stool ball on admission. Senna started. No BMs documented since admission. Add Miralax once he is toelrating TF better. On trickle feedings and currently on Reglan Lactulose enema ordered (8) Diabetes: Code(s): E11.9 - Type 2 diabetes mellitus without complications Status: Acute Assessment and Plan: The patient's blood glucose was reviewed on 02/21 Glucose remains well controlled. Continue AccuCheks covering with sliding scale. Hypoglycemia protocol available as needed. Continue to monitor (9) Sacral ulcer: Code(s): L98.429 - Non-pressure chronic ulcer of back with unspecified severity Status: Acute Assessment and Plan: Patient has a sacral ulcer noted present on admission. CT Abd/Pelvis showing small amount of fat stranding with a few locules of air about the posterior aspect of the mid and distal sacrum. No obvious loculated fluid collection identified. No convincing CT evidence for sacral osteomyelitis at this time. Wound Care to evaluate. Continue abx. Plan DVT prophylaxis: Heparin subQ Stress ulcer prophylaxis: Protonix Code Status: Full code Subjective Date/time seen: 02/21/25 15:12 Interval history: 64yo male with HLD, DM and Asthma who presents with altered mental status and hypoxia from his halfway. Rapid response called once patient arrived to floor for being hypoxic. Patient remains intubated and sedated. Not tolerating TF well with 200ml residual overnight per RN. TF only running at 10ml/hr. Remains off Levophed. Weaned off Phenylephrine yesterday. No issues overnight. Good UOP. Review of Systems Review of Systems: ROS unobtainable: Yes unobtainable due to endotracheal tube Exam Narrative: AF 97.7 129/83 110 24 100% MV Gen - intubated and sedated HEENT - NGT right nares. ETT secured. PERRL Neck - TLC right IJ Chest - clear anteriorly. CV - tachycardic, regular. Tele showing no significant dysrhythmias Abd - Soft, scaphoid. +BS. Suprapubic dressing clean and dry. SP catheter secured draining clear yellow urine Ext - No pedal edema. Neuro - sedated Psych - unable to assess Skin - Warm and dry Objective Data Vital Signs Vital Signs: Vital Signs - 24 hr 02/20/25 16:00 02/20/25 16:00 02/20/25 16:00 Temperature Pulse Rate 96 96 Respiratory Rate 24 H Blood Pressure Pulse Oximetry 100 Oxygen Delivery Mechanical Ventilation Fraction of Inspired Oxygen 40 40 02/20/25 16:00 02/20/25 16:00 02/20/25 16:00 Temperature 98.1 F Pulse Rate 96 96 96 Respiratory Rate 24 H 24 H Blood Pressure 102/74 102/74 Pulse Oximetry 100 Oxygen Delivery Fraction of Inspired Oxygen 02/20/25 16:00 02/20/25 17:05 02/20/25 18:00 Temperature Pulse Rate 96 98 84 Respiratory Rate 24 H Blood Pressure Pulse Oximetry 100 Oxygen Delivery Mechanical Ventilation Fraction of Inspired Oxygen 40 02/20/25 18:00 02/20/25 20:00 02/20/25 20:00 Temperature 98.1 F Pulse Rate 84 92 92 Respiratory Rate 24 H 24 H Blood Pressure 106/77 127/82 Pulse Oximetry 100 Oxygen Delivery Fraction of Inspired Oxygen 02/20/25 20:00 02/20/25 20:00 02/20/25 20:00 Temperature Pulse Rate 92 94 Respiratory Rate 24 H 24 H Blood Pressure Pulse Oximetry 100 Oxygen Delivery Mechanical Ventilation Fraction of Inspired Oxygen 40 40 02/20/25 20:00 02/20/25 20:00 02/20/25 20:22 Temperature 98 F Pulse Rate 94 94 93 Respiratory Rate 24 H 24 H Blood Pressure 127/82 Pulse Oximetry 100 Oxygen Delivery Fraction of Inspired Oxygen 02/20/25 20:24 02/20/25 20:32 02/20/25 20:34 Temperature Pulse Rate 93 93 92 Respiratory Rate 24 H 24 H Blood Pressure Pulse Oximetry 100 Oxygen Delivery Mechanical Ventilation Fraction of Inspired Oxygen 40 02/20/25 20:34 02/20/25 20:45 02/20/25 20:48 Temperature Pulse Rate 92 97 99 Respiratory Rate 24 H 24 H Blood Pressure 128/79 128/79 Pulse Oximetry 100 Oxygen Delivery Fraction of Inspired Oxygen 02/20/25 21:00 02/20/25 21:16 02/20/25 21:22 Temperature Pulse Rate 96 96 96 Respiratory Rate 24 H 24 H Blood Pressure 101/71 97/73 L 97/73 L Pulse Oximetry 100 100 Oxygen Delivery Fraction of Inspired Oxygen 02/20/25 21:22 02/20/25 21:31 02/20/25 21:47 Temperature Pulse Rate 96 96 95 Respiratory Rate 24 H 24 H Blood Pressure 97/73 L 103/76 100/73 Pulse Oximetry 100 100 Oxygen Delivery Fraction of Inspired Oxygen 02/20/25 22:00 02/20/25 22:00 02/20/25 22:00 Temperature Pulse Rate 95 95 95 Respiratory Rate 24 H 24 H Blood Pressure 102/76 Pulse Oximetry Oxygen Delivery Fraction of Inspired Oxygen 02/20/25 22:00 02/20/25 22:01 02/20/25 22:16 Temperature Pulse Rate 95 95 94 Respiratory Rate 24 H 24 H Blood Pressure 102/76 107/76 Pulse Oximetry 100 100 Oxygen Delivery Fraction of Inspired Oxygen 02/20/25 22:31 02/20/25 22:45 02/20/25 22:45 Temperature Pulse Rate 94 94 94 Respiratory Rate 24 H 24 H Blood Pressure 108/82 107/81 107/81 Pulse Oximetry 100 100 Oxygen Delivery Fraction of Inspired Oxygen 02/20/25 23:00 02/20/25 23:15 02/20/25 23:30 Temperature Pulse Rate 93 92 92 Respiratory Rate 24 H 24 H Blood Pressure 91/67 L 93/73 L Pulse Oximetry 100 100 100 Oxygen Delivery Mechanical Ventilation Fraction of Inspired Oxygen 40 02/20/25 23:30 02/20/25 23:45 02/21/25 00:00 Temperature Pulse Rate 92 91 90 Respiratory Rate 24 H 24 H Blood Pressure 89/71 L 96/71 L 97/73 L Pulse Oximetry 100 100 Oxygen Delivery Fraction of Inspired Oxygen 02/21/25 00:00 02/21/25 00:00 02/21/25 00:00 Temperature Pulse Rate 90 90 90 Respiratory Rate 24 H 24 H 24 H Blood Pressure Pulse Oximetry 100 Oxygen Delivery Mechanical Ventilation Fraction of Inspired Oxygen 40 02/21/25 00:00 02/21/25 00:00 02/21/25 00:00 Temperature Pulse Rate 90 90 Respiratory Rate 24 H Blood Pressure 97/73 L Pulse Oximetry 100 Oxygen Delivery Fraction of Inspired Oxygen 40 02/21/25 00:15 02/21/25 00:23 02/21/25 00:30 Temperature Pulse Rate 96 94 92 Respiratory Rate 21 H 24 H Blood Pressure 109/82 109/82 97/70 L Pulse Oximetry 100 100 Oxygen Delivery Fraction of Inspired Oxygen 02/21/25 00:45 02/21/25 01:00 02/21/25 01:15 Temperature Pulse Rate 93 94 94 Respiratory Rate 24 H 24 H 24 H Blood Pressure 102/76 86/68 L 105/76 Pulse Oximetry 100 100 100 Oxygen Delivery Fraction of Inspired Oxygen 02/21/25 01:30 02/21/25 01:40 02/21/25 01:44 Temperature Pulse Rate 90 90 90 Respiratory Rate 24 H 24 H Blood Pressure 83/64 L Pulse Oximetry 100 100 Oxygen Delivery Mechanical Ventilation Fraction of Inspired Oxygen 40 02/21/25 01:46 02/21/25 01:50 02/21/25 02:00 Temperature Pulse Rate 90 90 91 Respiratory Rate 24 H 24 H 24 H Blood Pressure 89/69 L Pulse Oximetry 100 Oxygen Delivery Fraction of Inspired Oxygen 02/21/25 02:00 02/21/25 02:00 02/21/25 02:00 Temperature Pulse Rate 91 91 91 Respiratory Rate 24 H Blood Pressure 84/62 L Pulse Oximetry Oxygen Delivery Fraction of Inspired Oxygen 02/21/25 02:00 02/21/25 02:01 02/21/25 02:15 Temperature Pulse Rate 92 91 95 Respiratory Rate 24 H 24 H 24 H Blood Pressure 84/62 L 97/73 L Pulse Oximetry 100 100 100 Oxygen Delivery Fraction of Inspired Oxygen 02/21/25 04:00 02/21/25 04:00 02/21/25 04:00 Temperature 97.7 F Pulse Rate 96 Respiratory Rate 24 H Blood Pressure 115/83 Pulse Oximetry 100 Oxygen Delivery Mechanical Ventilation Fraction of Inspired Oxygen 40 40 02/21/25 04:00 02/21/25 04:00 02/21/25 04:00 Temperature Pulse Rate 96 96 96 Respiratory Rate 24 H 24 H Blood Pressure 115/83 Pulse Oximetry Oxygen Delivery Fraction of Inspired Oxygen 02/21/25 04:00 02/21/25 05:30 02/21/25 06:00 Temperature Pulse Rate 98 90 91 Respiratory Rate Blood Pressure 101/76 Pulse Oximetry 100 Oxygen Delivery Mechanical Ventilation Fraction of Inspired Oxygen 40 02/21/25 06:00 02/21/25 06:00 02/21/25 06:00 Temperature Pulse Rate 91 91 91 Respiratory Rate 24 H 24 H 24 H Blood Pressure 101/76 Pulse Oximetry 100 Oxygen Delivery Fraction of Inspired Oxygen 02/21/25 06:00 02/21/25 06:39 02/21/25 07:19 Temperature 97.6 F Pulse Rate 91 90 91 Respiratory Rate 24 H Blood Pressure 107/77 96/63 L Pulse Oximetry 100 Oxygen Delivery Fraction of Inspired Oxygen 02/21/25 07:43 02/21/25 07:43 02/21/25 07:55 Temperature Pulse Rate 95 95 98 Respiratory Rate 24 H 24 H Blood Pressure Pulse Oximetry 100 Oxygen Delivery Mechanical Ventilation Fraction of Inspired Oxygen 40 02/21/25 08:00 02/21/25 08:00 02/21/25 08:00 Temperature Pulse Rate 97 Respiratory Rate Blood Pressure Pulse Oximetry Oxygen Delivery Mechanical Ventilation Fraction of Inspired Oxygen 40 40 02/21/25 08:18 02/21/25 08:18 02/21/25 10:00 Temperature Pulse Rate 95 95 100 Respiratory Rate 24 H 24 H Blood Pressure Pulse Oximetry Oxygen Delivery Fraction of Inspired Oxygen 02/21/25 10:00 02/21/25 10:48 02/21/25 12:00 Temperature Pulse Rate 102 H 105 H Respiratory Rate 24 H Blood Pressure 109/92 H Pulse Oximetry 100 100 Oxygen Delivery Mechanical Ventilation Fraction of Inspired Oxygen 40 40 02/21/25 12:00 02/21/25 12:00 02/21/25 12:00 Temperature 97.7 F Pulse Rate 110 H 108 H Respiratory Rate 24 H Blood Pressure 129/83 Pulse Oximetry 100 Oxygen Delivery Mechanical Ventilation Fraction of Inspired Oxygen 40 02/21/25 13:29 02/21/25 13:29 02/21/25 13:42 Temperature Pulse Rate 108 H 108 H 110 H Respiratory Rate 24 H 24 H Blood Pressure Pulse Oximetry 100 Oxygen Delivery Mechanical Ventilation Fraction of Inspired Oxygen 40 Intake/Output Intake/Output: Intake & Output 02/18/25 02/19/25 02/20/25 02/21/25 23:59 23:59 23:59 23:59 Intake Total 7304.2 5459.3667 3881.1 2462.2 Output Total 1750 1900 1600 1200 Balance 5554.2 3559.3667 2281.1 1262.2 Meds/Results Medications: Active Medications Generic Name Dose Route Start Last Admin Trade Name Freq PRN Reason Stop Dose Admin Acetaminophen 650 mg 02/17/25 20:19 02/18/25 14:31 Acetaminophen 325 Mg Tablet FEED TUBE 650 mg Q4H PRN Administration Mild Pain (1-3) or Fever Bisacodyl 10 mg 02/20/25 11:01 Bisacodyl 10 Mg Suppository RECTAL QAM PRN Constipation Dextrose 12.5 gm 02/17/25 21:35 Dextrose 50% 25 Gm/50 Ml Syringe IV PUSH PRN PRN Hypoglycemia Protocol Folic Acid 1 mg 02/19/25 09:00 02/21/25 09:03 Folic Acid 1 Mg/0.2 Ml Inj IV PUSH 1 mg QAM KENNETH Administration Glucagon 1 mg 02/17/25 21:35 Glucagon For Inj 1 Mg Vial IM PRN PRN Hypoglycemia Protocol Glucose 15 gm 02/17/25 21:35 Glucose Oral Gel 15 Gm Of Glucse In 37.5 Gm Tube PO PRN PRN Hypoglycemia Protocol Heparin Sodium (Porcine) 5,000 units 02/18/25 14:00 02/21/25 06:23 Heparin Sodium 5,000 Units/Ml Vial SUB-Q 5,000 units Q8HR KENNETH Administration Cefepime HCl 2 gm/ Sodium 50 mls @ 100 mls/hr 02/18/25 06:00 02/21/25 06:23 Chloride IVPB 100 mls/hr Q12H KENNETH Administration Fentanyl Citrate 2,500 mcg in 250 mls @ 0 mls/hr 02/17/25 20:10 02/21/25 08:18 Fentanyl 2,500 Mcg/Ns 250 Ml IV CONT 0 mcg/hr .Q0M KENNETH 0 mls/hr Protocol Titration Midazolam HCl 100 mg in 100 mls @ 0 mls/hr 02/17/25 20:10 02/21/25 08:18 Versed 100 Mg/Ns 100 Ml IV CONT 0 mg/hr .Q0M KENNETH 0 mls/hr Protocol Titration Dextrose 1,000 mls @ 100 mls/hr 02/17/25 21:35 Dextrose 5% 1,000 Ml IVPB PRN PRN Hypoglycemia Protocol Phenylephrine HCl 50 mg/ 250 mls @ 0 mls/hr 02/18/25 05:10 02/21/25 06:39 Sodium Chloride IV CONT 0 mcg/min .Q0M KENNETH 0 mls/hr Protocol Titration Doxycycline Hyclate 100 mg/ 100 mls @ 100 mls/hr 02/18/25 08:00 02/21/25 08:49 Sodium Chloride IVPB 02/23/25 07:59 100 mls/hr Q12H KENNETH Administration Dextrose 1,000 mls @ 125 mls/hr 02/20/25 10:05 02/21/25 02:30 Dextrose 5% 1,000 Ml IV CONT 125 mls/hr .Q8H KENNETH Administration Vancomycin HCl 2,000 mg in 500 mls @ 250 mls/hr 02/20/25 23:00 02/21/25 00:51 Vancomycin 2,000 Mg/Ns 500 Ml IVPB Infused Q12H KENNETH Infusion Insulin Aspart 3 - 6 units 02/18/25 00:00 02/21/25 08:51 Insulin Aspart (*Bkc) 100 Units/Ml SUB-Q Not Given Q4HR [facility] Protocol Ipratropium Spraggs 0.5 mg 02/18/25 09:35 02/21/25 13:28 Ipratropium Br 0.02% Inh Soln 0.5 Mg/2.5 Ml Vial INHALATION 0.5 mg Q6HRT KENNETH Administration Levalbuterol HCl 0.63 mg 02/18/25 09:35 02/21/25 13:28 Levalbuterol Neb 1.25 Mg/3 Ml INHALATION 0.63 mg Q6HRT KENNETH Administration Metoclopramide HCl 10 mg 02/19/25 12:00 02/21/25 06:23 Metoclopramide Hcl Inj 10 Mg/2 Ml Vial IV PUSH 10 mg Q6HR KENNETH Administration Multi-Ingred Cream/Lotion/Oil/Oint 1 applic 02/17/25 21:00 02/21/25 08:53 Mineral Oil/White Petrolatum Ointment EACH EYE 1 applic Q12HR KENNETH Administration Pantoprazole Sodium 40 mg 02/18/25 09:00 02/21/25 08:51 Pantoprazole Sodium Iv 40 Mg Vial IV PUSH 40 mg Q12HR KENNETH Administration Polyethylene Glycol 17 gm 02/21/25 09:00 02/21/25 08:51 Polyethylene Glycol 3350 17 Gm Powd.Pack PO 17 gm QAM KENNETH Administration Senna/Docusate Sodium 1 tab 02/17/25 21:00 02/20/25 20:15 Senna/Docusate Sodium Tablet FEED TUBE 1 tab HS KENNETH Administration Sodium Chloride 10 ml 02/18/25 22:00 02/21/25 06:25 Central Line Flush IV PUSH 10 ml Q8HR KENNETH Administration Sodium Chloride 20 ml 02/18/25 16:07 02/20/25 05:33 Central Line Flush IV PUSH 20 ml PRN PRN Administration after blood draws Thiamine HCl 100 mg 02/19/25 09:00 02/21/25 08:51 Thiamine Hcl 200 Mg/2 Ml Vial IV PUSH 100 mg QAM KENNETH Administration Radiology Results: ITS Impressions Head CT 02/17/25 16:55 IMPRESSION: 1. No acute intracranial hemorrhage. No mass effect. 2. Probable chronic ischemic white matter change. Chest/Abdomen/Pelvis CT 02/17/25 17:11 IMPRESSION: 1. Moderate sized groundglass opacities scattered throughout both lungs most prominent in the lower lobes. In addition, there are small to moderate sized patchy consolidations scattered throughout both lungs most prominent in the lower lobes. The findings are concerning for multilobar pneumonia. Other etiologies are possible but are felt to be less likely. Recommend follow-up to resolution. 2.There is a Daniels catheter in the bladder. Mild concentric thickening of the calvo of the bladder. Small amount of nondependent air in the bladder which may be due to recent instrumentation or cystitis. 3. Large amount of stool in the rectum. 4. The stomach is distended and filled with air. 5. Small amount of fat stranding with a few locules of air about the posterior aspect of the mid and distal sacrum. No obvious loculated fluid collection identified. No convincing CT evidence for sacral osteomyelitis at this time. Abdomen Ultrasound 02/19/25 13:00 Impression: Limited study. No acute process Abdomen X-Ray 02/20/25 10:54 IMPRESSION: 1. No acute abdominal abnormality. 2: Bibasilar infiltrates may represent edema or pneumonia. Renal Ultrasound 02/20/25 17:18 IMPRESSION: 1. Normal kidneys without hydronephrosis. 2. Diffuse trabeculated bladder wall thickening suggestive of sequela of chronic outlet obstruction. Chest X-Ray 02/21/25 11:32 IMPRESSION: 1. Endotracheal tube tip 6.3 cm above the jacobo. Consider advancement by 4 cm. 2. Opacities in bilateral lower lung zones which could represent pneumonia, pulmonary edema, atelectasis or some combination thereof. Labs Labs: Laboratory Results - last 24 hr 02/20/25 02/20/25 02/20/25 12:00 17:12 17:47 WBC RBC Hgb Hct MCV MCH MCHC RDW Plt Count MPV Immature Gran % (Auto) Neut % (Auto) Lymph % (Auto) [place] % (Auto) Eos % (Auto) Baso % (Auto) Lymph # (Auto) [place] # (Auto) Eos # (Auto) Baso # (Auto) Abs Immat Gran (auto) Absolute Neuts (auto) Absolute Nucleated RBC Band Neutrophils % Nucleated RBC % Platelet Estimate Clumped Platelets Hypochromasia Anisocytosis Ovalocytes Schistocytes Puncture Site ABG pH ABG pCO2 ABG pO2 ABG PO2/FiO2 Ratio ABG HCO3 ABG O2 Saturation ABG O2 Content ABG Base Excess A-a Gradient Oxyhemoglobin Carboxyhemoglobin Methemoglobin Reduced Hemoglobin Total Hemoglobin O2 Delivery Device O2 Liters/Min Minute Volume Vent Rate Vent Mode FiO2 Tidal Volume PEEP Peak Inspir Pressure Pressure Support Sodium 152 H Potassium 3.2 L Chloride 121 H Carbon Dioxide 17 L Anion Gap 14 H BUN 21 H Creatinine 0.60 L Estim Creat Clear Calc 94 Estimated GFR > 60 Glucose 179 H POC Capillary Glucose 159 H Lactic Acid Calcium 8.7 Phosphorus 2.1 L Magnesium 2.1 Total Bilirubin AST ALT Alkaline Phosphatase Total Protein Albumin 2.8 L Ur 24 Hour Volume 2600 Urine Creatinine 17.0 Ur Creatinine 24 Hour 0.4 L Vancomycin Trough 02/20/25 02/20/25 02/21/25 20:09 21:41 00:14 WBC RBC Hgb Hct MCV MCH MCHC RDW Plt Count MPV Immature Gran % (Auto) Neut % (Auto) Lymph % (Auto) [place] % (Auto) Eos % (Auto) Baso % (Auto) Lymph # (Auto) [place] # (Auto) Eos # (Auto) Baso # (Auto) Abs Immat Gran (auto) Absolute Neuts (auto) Absolute Nucleated RBC Band Neutrophils % Nucleated RBC % Platelet Estimate Clumped Platelets Hypochromasia Anisocytosis Ovalocytes Schistocytes Puncture Site ABG pH ABG pCO2 ABG pO2 ABG PO2/FiO2 Ratio ABG HCO3 ABG O2 Saturation ABG O2 Content ABG Base Excess A-a Gradient Oxyhemoglobin Carboxyhemoglobin Methemoglobin Reduced Hemoglobin Total Hemoglobin O2 Delivery Device O2 Liters/Min Minute Volume Vent Rate Vent Mode FiO2 Tidal Volume PEEP Peak Inspir Pressure Pressure Support Sodium Potassium Chloride Carbon Dioxide Anion Gap BUN Creatinine Estim Creat Clear Calc Estimated GFR Glucose POC Capillary Glucose 145 H 172 H Lactic Acid Calcium Phosphorus Magnesium Total Bilirubin AST ALT Alkaline Phosphatase Total Protein Albumin Ur 24 Hour Volume Urine Creatinine Ur Creatinine 24 Hour Vancomycin Trough 8.8 L 02/21/25 02/21/25 02/21/25 05:06 05:08 05:09 WBC 15.8 H RBC 3.43 L Hgb 8.9 L Hct 28.1 L MCV 81.9 MCH 25.9 L MCHC 31.7 L RDW 17.3 H Plt Count 173 MPV 9.3 Immature Gran % (Auto) 1.3 H Neut % (Auto) 89.0 H Lymph % (Auto) 5.3 L [place] % (Auto) 3.9 Eos % (Auto) 0.3 Baso % (Auto) 0.2 Lymph # (Auto) 0.84 L [place] # (Auto) 0.6 Eos # (Auto) 0.0 Baso # (Auto) 0.0 Abs Immat Gran (auto) 0.20 H Absolute Neuts (auto) 14.1 H Absolute Nucleated RBC 0.030 H Band Neutrophils % Not Reportable Nucleated RBC % 0.2 Platelet Estimate Slightly decreased Clumped Platelets Present Hypochromasia 1+ Anisocytosis 1+ Ovalocytes 1+ Schistocytes None seen Puncture Site Right radial ABG pH 7.365 ABG pCO2 31.8 L ABG pO2 42.2 L* ABG PO2/FiO2 Ratio 1.06 ABG HCO3 17.8 L ABG O2 Saturation 77.0 L* ABG O2 Content 10.1 L ABG Base Excess -6.8 A-a Gradient 206.4 Oxyhemoglobin 77.4 L* Carboxyhemoglobin 0.3 Methemoglobin 0.2 Reduced Hemoglobin 22.1 H Total Hemoglobin 9.3 L O2 Delivery Device Ventilator O2 Liters/Min Not Reportable Minute Volume 7.3 Vent Rate 24 Vent Mode Cmv FiO2 40 Tidal Volume Not Reportable PEEP 10 Peak Inspir Pressure Not Reportable Pressure Support 40 Sodium 149 H Potassium 3.6 Chloride 120 H Carbon Dioxide 20 L Anion Gap 9 BUN 20 Creatinine 0.41 L Estim Creat Clear Calc 132 Estimated GFR > 60 Glucose 205 H POC Capillary Glucose 193 H Lactic Acid 1.2 Calcium 8.4 Phosphorus 2.0 L Magnesium 1.9 Total Bilirubin 0.6 AST 164 H ALT 229 H Alkaline Phosphatase 236 H Total Protein 5.5 L Albumin 2.7 L Ur 24 Hour Volume Urine Creatinine Ur Creatinine 24 Hour Vancomycin Trough 02/21/25 02/21/25 07:10 11:29 WBC RBC Hgb Hct MCV MCH MCHC RDW Plt Count MPV Immature Gran % (Auto) Neut % (Auto) Lymph % (Auto) [place] % (Auto) Eos % (Auto) Baso % (Auto) Lymph # (Auto) [place] # (Auto) Eos # (Auto) Baso # (Auto) Abs Immat Gran (auto) Absolute Neuts (auto) Absolute Nucleated RBC Band Neutrophils % Nucleated RBC % Platelet Estimate Clumped Platelets Hypochromasia Anisocytosis Ovalocytes Schistocytes Puncture Site ABG pH ABG pCO2 ABG pO2 ABG PO2/FiO2 Ratio ABG HCO3 ABG O2 Saturation ABG O2 Content ABG Base Excess A-a Gradient Oxyhemoglobin Carboxyhemoglobin Methemoglobin Reduced Hemoglobin Total Hemoglobin O2 Delivery Device O2 Liters/Min Minute Volume Vent Rate Vent Mode FiO2 Tidal Volume PEEP Peak Inspir Pressure Pressure Support Sodium Potassium Chloride Carbon Dioxide Anion Gap BUN Creatinine Estim Creat Clear Calc Estimated GFR Glucose POC Capillary Glucose 178 H 177 H Lactic Acid Calcium Phosphorus Magnesium Total Bilirubin AST ALT Alkaline Phosphatase Total Protein Albumin Ur 24 Hour Volume Urine Creatinine Ur Creatinine 24 Hour Vancomycin Trough
[2025-02-21 16:59] LABS: Albumin Level 2.8 g/dL (3.5-5.1); Anion Gap 7 mmol/L (4-12); Blood Urea Nitrogen 16 mg/dL (9-20); Calcium 8.5 mg/dL (8.4-10.2); Carbon Dioxide 22 mmol/L (22-30); Chloride 120 mmol/L (98-107); Estimated CRCL calculation 161 ml/min; Estimated Glomerular Filt Rate > 60; Glucose 175 mg/dL (65-110); Potassium 3.7 mmol/L (3.4-5.0); Sodium 149 mmol/L (137-145)
[2025-02-21 17:00] LABS: Magnesium 2.0 mg/dL (1.6-2.3)
[2025-02-21] MEDS: SENNA/DOCUSATE SODIUM TABLET 1 TAB FEED TUBE (20:22)
[2025-02-21] MEDS: ALTEPLASE 2 MG VIAL (CATHFLO) IV PUSH (23:00)
[2025-02-22] VITALS (28 sets, daily range): BP systolic 98–163; BP diastolic 57–112; PULSE 83–122; RESP 22–36; TEMP 36.4–37.7; O2SAT 88–100
[2025-02-22] MEDS: METOCLOPRAMIDE HCL INJ 10 MG/2 ML VIAL IV PUSH ×5 (00:20→23:32)
[2025-02-22] MEDS: VANCOMYCIN 2,000 MG/NS 500 ML 2,000 MG/500 ML BAG 250 MG IVPB ×3 (00:51→23:31)
[2025-02-22] MEDS: IPRATROPIUM BR 0.02% INH SOLN 0.5 MG/2.5 ML VIAL INHALATION ×2 (01:49→07:33)
[2025-02-22 05:12] LABS: Alveolar/Arterial O2 Gradient 130.6 mmHg; Carboxyhemoglobin 0.3 % THb (0-2.0); Fractional Inspired Oxygen 40 %; HCO3 ABG 18.7 mEq/l (22.0-26.0); Methemoglobin ABG 0.0 %THb (0-1.5); Oxygen Content ABG 13.9 %vol (16.0-22.0); Oxygen Saturation ABG 98.8 % (95.0-100.0); PCO2 ABG 24.7 mmHg (35.0-45.0); PO2 ABG 126.2 mmHg (80.0-100.0); PO2 FiO2 Ratio Arterial Blood 3.15 %; Reduced Hemoglobin 1.4 %THb (0-5.0)
[2025-02-22 05:14] LABS: Site Drawn RIGHT BRACHIAL
[2025-02-22 05:15] LABS: Arterial Blood Gas Ventilator rate 24 /MIN; Modified Allen's Test Pass
[2025-02-22 05:16] LABS: Arterial Blood Gas Tidal Volume 450 ml
[2025-02-22 06:25] LABS: Hematocrit 28.0 % (42.0-52.0); Hemoglobin 9.2 g/dL (14.0-18.0); Immature Granulocyte Percent A 2.3 % (0-0.5); Lymphocytes Absolute Auto 0.62 K/mm3 (0.9-3.2); Mean Corpuscular HGB Conc 32.9 g/dl (32-36); Mean Corpuscular Hemoglobin 26.6 pg (26-34); Mean Corpuscular Volume 80.9 fl (80-100); Nucleated Red Blood Cells Absolute Auto 0.040 K/mm3 (0.0-0.012); Nucleated Red Blood Cells Perc 0.4 % (0.0-0.2); Platelet Count Result 146 k/mm3 (150-375); Red Blood Count 3.46 M/mm3 (4.6-6.20); White Blood Count 9.2 K/mm3 (4.5-10.0)
[2025-02-22] MEDS: DEXTROSE 5% 1,000 ML 1,000 ML 125 ML IV CONT (06:31)
[2025-02-22] MEDS: CEFEPIME 2 GM in SODIUM CHLORIDE 0.9% IV 50 ML 100 ML IVPB ×2 (06:32→17:37)
[2025-02-22] MEDS: CENTRAL LINE FLUSH 10 ML IV PUSH ×3 (06:32→20:27)
[2025-02-22 06:48] LABS: Alanine Aminotransferase 154 U/L (6-50); Albumin Level 2.7 g/dL (3.5-5.1); Alkaline Phosphatase 275 U/L (38-126); Anion Gap 8 mmol/L (4-12); Aspartate Amino Transferase 93 U/L (17-59); Bilirubin,Total 0.7 mg/dL (0.2-1.3); Blood Urea Nitrogen 13 mg/dL (9-20); Calcium 8.4 mg/dL (8.4-10.2); Carbon Dioxide 22 mmol/L (22-30); Chloride 115 mmol/L (98-107); Estimated CRCL calculation 168 ml/min; Estimated Glomerular Filt Rate > 60; Glucose 162 mg/dL (65-110); Magnesium 1.8 mg/dL (1.6-2.3); Potassium 3.5 mmol/L (3.4-5.0); Sodium 145 mmol/L (137-145); Total Protein 5.8 g/dL (6.3-8.2)
--- NOTE | 2025-02-22 07:00 | P.CDI_ITS ---
CDI Query Clarification Request BMI: 21.4 Nutritional Diagnostic Statement: Please refer to the comprehensive nutrition assessment for further information. If you agree with diagnosis of Severe Protein Calorie Malnutrition as related to inadequate protein-energy intake with increased protein-energy needs in setting of chronic disease as evidenced by minimal oral intake for > 1-2 months; severe muscle wasting (temporalis/clavicile) and severe subcutaneous fat loss (orbital fat pads). Please specify severity if known: * Mild * Moderate * Severe * Other/Unknown
[2025-02-22] MEDS: dexmedeTOMIDine 400 MCG/100 ML 400 MCG/100 ML BAG 8.21 MCG IV CONT (07:53)
[2025-02-22] MEDS: DOXYCYCLINE IV 100 MG in SODIUM CHLORIDE 0.9% IV 100 ML IVPB ×2 (07:53→20:26)
[2025-02-22] MEDS: THIAMINE HCL 200 MG/2 ML VIAL 100 MG IV PUSH (08:01)
[2025-02-22] MEDS: PANTOPRAZOLE SODIUM IV 40 MG VIAL IV PUSH ×2 (08:01→20:27)
[2025-02-22] MEDS: POTASSIUM CHLORIDE 20 MEQ PACKET (FOR LIQUID) 40 MEQ PO (08:01)
[2025-02-22] MEDS: MAGNESIUM SULF 2 GM/WATER 50ML 2 GM/50 ML BAG IVPB (08:02)
[2025-02-22] MEDS: POTASSIUM PHOS,M-BASIC-D-BASIC 20 MMOL in SODIUM CHLORIDE 0.9% IV 250 ML 64.17 MMOL IVPB (08:02)
[2025-02-22] MEDS: MINERAL OIL/WHITE PETROLATUM OINTMENT 1 APPLIC EACH EYE ×2 (08:04→20:27)
--- NOTE | 2025-02-22 09:16 | P.PNINT_ITS ---
Progress Note: A&P Assessment and Plan (1) Septic shock: Code(s): A41.9 - Sepsis, unspecified organism; R65.21 - Severe sepsis with septic shock Status: Acute Assessment and Plan: 02/17: Patient presented from a retirement with altered mental status, shortness of breath. Initially had Leukocytosis. Patient did receive 2 L IV fluid bolus in the ER, was transferred to the intermediate Unit and immediately upon arrival to the IMU, rapid response was called due to hypoxia, tachypnea, tachycardia. Patient was transferred to of the ICU -likely etiology pneumonia and UTI -lactic acid normalized in patient is now off of vasopressors -adequately fluid-resuscitated in the ICU -02/17: Preliminary blood cultures are negative x2 -02/17: Urine cultures grew superficial organisms -02/18: Sputum culture growing Klebsiella and Dolores tropicalis 02/17: Nasal MRSA screen was positive Continue cefepime and vancomycin (02/17), completed course of doxycycline -DC IV fluids (2) Acute respiratory failure: Code(s): J96.00 - Acute respiratory failure, unspecified whether with hypoxia or hypercapnia Status: Acute Assessment and Plan: 02/17: Patient was transferred to the ICU from intermediate Unit. He was emergently intubated by ER physician likely cause multifocal pneumonia Patient is on CMV mode of ventilation, peep of 10, 40% FiO2. Decrease PEEP to 8 Chest x-ray and ABGs reviewed, Continue bronchodilators - Xopenex and Atrovent but change to p.r.n. Patient awake and following commands but tachypneic with rate in high 30s. When I placed patient on PSV 01/28 patient's respiratory rate was up to 40s. I was start Precedex infusion for anxiolysis Will give Lasix 20 mg IV for diuresis Continue daily assessment for SBT Treatment of pneumonia as above 02/17: CT chest, abdomen and pelvis IMPRESSION: 1. Moderate sized groundglass opacities scattered throughout both lungs most prominent in the lower lobes. In addition, there are small to moderate sized pat tyrese consolidations scattered throughout both lungs most prominent in the lower lobes. The findings are concerning for multilobar pneumonia. Other etiologies are possible but are felt to be less likely. Recommend follow-up to resolution. 2.There is a Daniels catheter in the bladder. Mild concentric thickening of the calvo of the bladder. Small amount of nondependent air in the bladder which may be due to recent instrumentation or cystitis. 3. Large amount of stool in the rectum. 4. The stomach is distended and filled with air. 5. Small amount of fat stranding with a few locules of air about the posterior aspect of the mid and distal sacrum. No obvious loculated fluid collection identified. No convincing CT evidence for sacral osteomyelitis at this time. (3) Multifocal pneumonia: Code(s): J18.8 - Other pneumonia, unspecified organism Status: Acute Assessment and Plan: Multifocal pneumonia Continue treatment as above (4) Acute UTI: Code(s): N39.0 - Urinary tract infection, site not specified Status: Acute Assessment and Plan: UA was positive for UTI, -continue antibiotics as above (5) Diabetes: Code(s): E11.9 - Type 2 diabetes mellitus without complications Status: Acute Assessment and Plan: Accu-Cheks and sliding scale insulin (6) Sacral ulcer: Code(s): L98.429 - Non-pressure chronic ulcer of back with unspecified severity Status: Acute Assessment and Plan: Patient has a sacral ulcer -appreciate wound care evaluation and recommendations 02/17: CT abdomen and pelvis: Small amount of fat stranding with a few locules of air about the posterior aspect of the mid and distal sacrum. No obvious loculated fluid collection identified. No convincing CT evidence for sacral osteomyelitis at this time. (7) Metabolic acidosis: Code(s): E87.20 - Acidosis, unspecified Status: Acute Assessment and Plan: Patient with metabolic acidosis, hypernatremia, hypophosphatemia, hypokalemia -elevated beta hydroxybutyrate, urine positive for protein, glucose and ketones -most likely related to starvation ketoacidosis causing metabolic acidosis -improved (8) Severe protein-calorie malnutrition: Code(s): E43 - Unspecified severe protein-calorie malnutrition Status: Acute Assessment and Plan: According to the niece patient has lost lot of weight since August 2024, initially she stated he unable to feed himself due to his neuropathy and was not being adequately fed at the retirement, after this surgery and when he was able to move his arms he stated he was not eating well because he was not hungry. -patient's BMI is 18.3, given his height, age, gender he does classify into severe protein calorie malnutrition -appreciate dietitian evaluation recommendations -continue tube feeds. Increase rate to 30 mL/hour -continue thiamine and folic acid. Add MVI -continue Reglan (9) Electrolyte imbalance: Code(s): E87.8 - Other disorders of electrolyte and fluid balance, not elsewhere classified Status: Acute Assessment and Plan: Hypernatremia improved. Will discontinue D5 water. Continue free water flushes Replace low phosphate magnesium and potassium Nephrology following (10) Constipation: Code(s): K59.00 - Constipation, unspecified Status: Acute Assessment and Plan: Large amount of stool in the rectal vault as seen on the CT scan of the abdomen and pelvis -patient has not had a bowel movement -02/20: Soapsuds enema was given without much improved -patient was given lactulose enema -continue MiraLax and senna S Plan DVT prophylaxis: Heparin subQ Stress ulcer prophylaxis: Protonix Nutrition: Advance tube feeds to 30 mL/hour Code Status: Full code Critical Care Time Spent: 30 minutes Due to a high probability of clinically significant, life threatening deterioration, the patient required my highest level of preparedness to intervene emergently and I personally spent this critical care time directly and personally managing the patient. This critical care time included obtaining a history; examining the patient; pulse oximetry; ordering and review of studies; arranging urgent treatment with development of a management plan; evaluation of patient's response to treatment; frequent reassessment; and discussions with other providers. It was exclusive of separately billable procedures and treating other patients and teaching time. Please see Assessment and Plan section and the rest of the note for further information on patient assessment and treatment This dictation may have been done utilizing a voice recognition system. Attempts have been made to correct errors. However, there may be uncorrected grammatical, spelling, and recognitions errors present. Subjective Date/time seen: 02/22/25 Overnight events reviewed. Afebrile Continues to be on mechanical ventilation 40% FiO2 and 10 of PEEP Off continue sedation He is awake and follows commands. Nodes head appropriately to questions. Noted no to pain but yes to shortness of breath. Tachypneic on exam Other Vitals acceptable Tolerating tube feeds at 20 mL/hour Interval history: Reason for consult: Septic shock, acute respiratory failure, pneumonia, UTI, lactic acidosis, altered mental status 64yo male with HLD, DM and Asthma who presents with altered mental status and hypoxia from his retirement. Rapid response called once patient arrived to IMU for being hypoxic. Transferred to the ICU and emergently intubated by ER physician Review of Systems Review of Systems: ROS unobtainable: Yes unobtainable due to endotracheal tube, unobtainable due to medical condition and unobtainable due to mental status Exam Narrative: General: intubated and sedated, in no acute distress HEENT:? Pupils equal and reactive, sclera is clear, ETT in place Neck:? Supple Respiratory:? Coarse breath sounds bilaterally, decreased at bases, no wheezing, adequate air entry Cardiac:? S1-S2 is normal, sinus tachycardia Abdomen:? Scaphoid abdomen, soft, nontender, hypoactive bowel sounds, patient cachectic and malnourished, patient has a sacral decubitus ulcer Extremities:? No edema, decreased pedal pulses Neuro:? Patient is intubated, off sedation, opens his eyes to name and follows simple commands with all 4 extremities, PERRL Skin:? old healing ulcers on the feet bilaterally Psych:? Unable to assess at this time Objective Data Vital Signs Vital Signs: Vital Signs - 24 hr 02/21/25 10:00 02/21/25 10:00 02/21/25 10:00 Temperature Pulse Rate 100 102 H 108 H Respiratory Rate 24 H 24 H Blood Pressure 109/92 H Pulse Oximetry 100 Oxygen Delivery Fraction of Inspired Oxygen 02/21/25 10:00 02/21/25 10:48 02/21/25 12:00 Temperature Pulse Rate 108 H 105 H Respiratory Rate 24 H Blood Pressure Pulse Oximetry 100 Oxygen Delivery Mechanical Ventilation Fraction of Inspired Oxygen 40 40 02/21/25 12:00 02/21/25 12:00 02/21/25 12:00 Temperature 36.5 C Pulse Rate 110 H 108 H Respiratory Rate 24 H Blood Pressure 129/83 Pulse Oximetry 100 Oxygen Delivery Mechanical Ventilation Fraction of Inspired Oxygen 40 02/21/25 12:00 02/21/25 12:00 02/21/25 13:29 Temperature Pulse Rate 110 H 110 H 108 H Respiratory Rate 25 H 25 H Blood Pressure Pulse Oximetry 100 Oxygen Delivery Mechanical Ventilation Fraction of Inspired Oxygen 40 02/21/25 13:29 02/21/25 13:42 02/21/25 14:00 Temperature Pulse Rate 108 H 110 H 112 H Respiratory Rate 24 H 24 H 18 Blood Pressure 132/91 H Pulse Oximetry 100 Oxygen Delivery Fraction of Inspired Oxygen 02/21/25 14:00 02/21/25 14:00 02/21/25 14:00 Temperature Pulse Rate 110 H 110 H 110 H Respiratory Rate 25 H 25 H Blood Pressure Pulse Oximetry Oxygen Delivery Fraction of Inspired Oxygen 02/21/25 15:49 02/21/25 15:59 02/21/25 16:00 Temperature 36.4 C L Pulse Rate 110 H 107 H Respiratory Rate 24 H 24 H Blood Pressure 130/81 Pulse Oximetry 100 100 Oxygen Delivery Mechanical Ventilation Fraction of Inspired Oxygen 40 40 02/21/25 16:00 02/21/25 17:18 02/21/25 18:00 Temperature Pulse Rate 108 H 107 H 110 H Respiratory Rate 24 H Blood Pressure 138/94 H Pulse Oximetry 100 100 Oxygen Delivery Mechanical Ventilation Fraction of Inspired Oxygen 40 02/21/25 18:00 02/21/25 19:55 02/21/25 20:00 Temperature Pulse Rate 113 H 113 H 113 H Respiratory Rate 24 H Blood Pressure Pulse Oximetry 100 Oxygen Delivery Mechanical Ventilation Fraction of Inspired Oxygen 40 02/21/25 20:00 02/21/25 20:00 02/21/25 20:17 Temperature 36.8 C Pulse Rate 113 H 121 H Respiratory Rate 25 H 100 H Blood Pressure 149/89 H Pulse Oximetry 100 Oxygen Delivery Fraction of Inspired Oxygen 40 02/21/25 20:20 02/21/25 22:00 02/21/25 22:00 Temperature Pulse Rate 115 H 117 H 117 H Respiratory Rate 26 H Blood Pressure 114/89 Pulse Oximetry 100 100 Oxygen Delivery Mechanical Ventilation Fraction of Inspired Oxygen 40 02/21/25 23:15 02/21/25 23:36 02/21/25 23:37 Temperature Pulse Rate 114 H 114 H 117 H Respiratory Rate 26 H Blood Pressure Pulse Oximetry 100 100 Oxygen Delivery Mechanical Ventilation Mechanical Ventilation Fraction of Inspired Oxygen 40 40 02/21/25 23:38 02/22/25 00:00 02/22/25 01:50 Temperature 36.8 C Pulse Rate 116 H 119 H Respiratory Rate 27 H 30 H Blood Pressure 163/106 H Pulse Oximetry 100 Oxygen Delivery Fraction of Inspired Oxygen 40 02/22/25 01:52 02/22/25 02:00 02/22/25 02:00 Temperature 37.0 C Pulse Rate 118 H 118 H 118 H Respiratory Rate 28 H Blood Pressure 124/112 H Pulse Oximetry 100 100 Oxygen Delivery Mechanical Ventilation Fraction of Inspired Oxygen 40 02/22/25 03:38 02/22/25 04:00 02/22/25 04:00 Temperature Pulse Rate 118 H 120 H Respiratory Rate 28 H Blood Pressure Pulse Oximetry 100 Oxygen Delivery Mechanical Ventilation Fraction of Inspired Oxygen 40 40 02/22/25 04:00 02/22/25 05:17 02/22/25 06:00 Temperature 36.8 C 36.4 C Pulse Rate 120 H 120 H 119 H Respiratory Rate 28 H 36 H Blood Pressure 141/81 H 140/88 Pulse Oximetry 100 100 100 Oxygen Delivery Mechanical Ventilation Fraction of Inspired Oxygen 40 02/22/25 07:40 02/22/25 07:41 02/22/25 07:53 Temperature Pulse Rate 122 H 120 H Respiratory Rate 30 H 33 H Blood Pressure Pulse Oximetry Oxygen Delivery Mechanical Ventilation Fraction of Inspired Oxygen 40 02/22/25 07:58 Temperature Pulse Rate 120 H Respiratory Rate 31 H Blood Pressure Pulse Oximetry Oxygen Delivery Fraction of Inspired Oxygen Intake/Output Intake/Output: Intake & Output 02/19/25 02/20/25 02/21/25 02/22/25 23:59 23:59 23:59 23:59 Intake Total 5459.3667 3881.1 4762.2 1624 Output Total 1900 1600 2450 1875 Balance 3559.3667 2281.1 2312.2 -251 Meds/Results Medications: Active Medications Generic Name Dose Route Start Last Admin Trade Name Freq PRN Reason Stop Dose Admin Acetaminophen 650 mg 02/17/25 20:19 02/18/25 14:31 Acetaminophen 325 Mg Tablet FEED TUBE 650 mg Q4H PRN Administration Mild Pain (1-3) or Fever Alteplase, Recombinant 2 mg 02/21/25 22:45 02/21/25 23:00 Alteplase 2 Mg Vial (Cathflo) IV PUSH 2 mg ONCE PRN Administration Line Occlusion Bisacodyl 10 mg 02/20/25 11:01 Bisacodyl 10 Mg Suppository RECTAL QAM PRN Constipation Dextrose 12.5 gm 02/17/25 21:35 Dextrose 50% 25 Gm/50 Ml Syringe IV PUSH PRN PRN Hypoglycemia Protocol Folic Acid 1 mg 02/19/25 09:00 02/21/25 09:03 Folic Acid 1 Mg/0.2 Ml Inj IV PUSH 1 mg QAM KENNETH Administration Furosemide 20 mg 02/22/25 12:00 Furosemide Inj 40 Mg/4 Ml Vial IV PUSH 02/22/25 12:01 ONCE ONE Glucagon 1 mg 02/17/25 21:35 Glucagon For Inj 1 Mg Vial IM PRN PRN Hypoglycemia Protocol Glucose 15 gm 02/17/25 21:35 Glucose Oral Gel 15 Gm Of Glucse In 37.5 Gm Tube PO PRN PRN Hypoglycemia Protocol Heparin Sodium (Porcine) 5,000 units 02/18/25 14:00 02/22/25 06:32 Heparin Sodium 5,000 Units/Ml Vial SUB-Q 5,000 units Q8HR KENNETH Administration Hydralazine HCl 10 mg 02/21/25 19:36 02/22/25 00:00 Hydralazine Hcl 20 Mg/Ml Vial IV PUSH 10 mg Q6H PRN Administration Blood Pressure - High Cefepime HCl 2 gm/ Sodium 50 mls @ 100 mls/hr 02/18/25 06:00 02/22/25 06:32 Chloride IVPB 100 mls/hr Q12H KENNETH Administration Dextrose 1,000 mls @ 100 mls/hr 02/17/25 21:35 Dextrose 5% 1,000 Ml IVPB PRN PRN Hypoglycemia Protocol Doxycycline Hyclate 100 mg/ 100 mls @ 100 mls/hr 02/18/25 08:00 02/22/25 07:53 Sodium Chloride IVPB 02/23/25 07:59 100 mls/hr Q12H KENNETH Administration Vancomycin HCl 2,000 mg in 500 mls @ 250 mls/hr 02/22/25 00:00 02/22/25 00:51 Vancomycin 2,000 Mg/Ns 500 Ml IVPB 250 mls/hr Q12H KENNETH Administration Potassium Phosphate 20 mmol/ 256.6667 mls @ 64.167 mls/hr 02/22/25 08:00 02/22/25 08:02 Sodium Chloride IVPB 02/22/25 11:59 64.17 mls/hr ONCE ONE Administration Dexmedetomidine HCl 400 mcg in 100 mls @ 3.285 mls/hr 02/22/25 07:40 02/22/25 07:53 Precedex 400 Mcg/100 Ml IV CONT 0.5 mcg/kg/hr .[id number] KENNETH 8.21 mls/hr Protocol Administration 0.2 MCG/KG/HR Magnesium Sulfate 2 gm in 50 mls @ 25 mls/hr 02/22/25 07:39 02/22/25 08:02 Magnesium Sulf 2 Gm/Water 50ml IVPB 02/22/25 09:38 25 mls/hr ONCE ONE Administration Insulin Aspart 3 - 6 units 02/18/25 00:00 02/22/25 08:04 Insulin Aspart (*Bkc) 100 Units/Ml SUB-Q Not Given Q4HR [facility] Protocol Ipratropium [place] 0.5 mg 02/22/25 07:33 Ipratropium Br 0.02% Inh Soln 0.5 Mg/2.5 Ml Vial INHALATION Q6HRT PRN Wheezing Levalbuterol HCl 0.63 mg 02/22/25 07:33 Levalbuterol Neb 1.25 Mg/3 Ml INHALATION Q6HRT PRN Wheezing Metoclopramide HCl 10 mg 02/19/25 12:00 02/22/25 06:32 Metoclopramide Hcl Inj 10 Mg/2 Ml Vial IV PUSH 10 mg Q6HR KENNETH Administration Multi-Ingred Cream/Lotion/Oil/Oint 1 applic 02/17/25 21:00 02/22/25 08:04 Mineral Oil/White Petrolatum Ointment EACH EYE 1 applic Q12HR KENNETH Administration Pantoprazole Sodium 40 mg 02/18/25 09:00 02/22/25 08:01 Pantoprazole Sodium Iv 40 Mg Vial IV PUSH 40 mg Q12HR KENNETH Administration Polyethylene Glycol 17 gm 02/21/25 09:00 02/22/25 08:01 Polyethylene Glycol 3350 17 Gm Powd.Pack PO 17 gm QAM KENNETH Administration Senna/Docusate Sodium 1 tab 02/17/25 21:00 02/21/25 20:22 Senna/Docusate Sodium Tablet FEED TUBE 1 tab HS KENNETH Administration Sodium Chloride 10 ml 02/18/25 22:00 02/22/25 06:32 Central Line Flush IV PUSH 10 ml Q8HR KENNETH Administration Sodium Chloride 20 ml 02/18/25 16:07 02/20/25 05:33 Central Line Flush IV PUSH 20 ml PRN PRN Administration after blood draws Thiamine HCl 100 mg 02/19/25 09:00 02/22/25 08:01 Thiamine Hcl 200 Mg/2 Ml Vial IV PUSH 100 mg QAM KENNETH Administration Radiology Results: ITS Impressions Head CT 02/17/25 16:55 IMPRESSION: 1. No acute intracranial hemorrhage. No mass effect. 2. Probable chronic ischemic white matter change. Chest/Abdomen/Pelvis CT 02/17/25 17:11 IMPRESSION: 1. Moderate sized groundglass opacities scattered throughout both lungs most prominent in the lower lobes. In addition, there are small to moderate sized patchy consolidations scattered throughout both lungs most prominent in the lower lobes. The findings are concerning for multilobar pneumonia. Other etiologies are possible but are felt to be less likely. Recommend follow-up to resolution. 2.There is a Daniels catheter in the bladder. Mild concentric thickening of the calvo of the bladder. Small amount of nondependent air in the bladder which may be due to recent instrumentation or cystitis. 3. Large amount of stool in the rectum. 4. The stomach is distended and filled with air. 5. Small amount of fat stranding with a few locules of air about the posterior aspect of the mid and distal sacrum. No obvious loculated fluid collection identified. No convincing CT evidence for sacral osteomyelitis at this time. Abdomen Ultrasound 02/19/25 13:00 Impression: Limited study. No acute process Abdomen X-Ray 02/20/25 10:54 IMPRESSION: 1. No acute abdominal abnormality. 2: Bibasilar infiltrates may represent edema or pneumonia. Renal Ultrasound 02/20/25 17:18 IMPRESSION: 1. Normal kidneys without hydronephrosis. 2. Diffuse trabeculated bladder wall thickening suggestive of sequela of chronic outlet obstruction. Chest X-Ray 02/22/25 07:28 IMPRESSION: 1. Slight decrease in opacities in the bilateral lower lung zones, left greater than right, which could represent improving pneumonia and/or atelectasis. Labs Labs: Laboratory Results - last 24 hr 02/20/25 02/21/25 02/21/25 12:00 11:29 16:05 WBC RBC Hgb Hct MCV MCH MCHC RDW Plt Count MPV Immature Gran % (Auto) Neut % (Auto) Lymph % (Auto) [place] % (Auto) Eos % (Auto) Baso % (Auto) Lymph # (Auto) [place] # (Auto) Eos # (Auto) Baso # (Auto) Abs Immat Gran (auto) Absolute Neuts (auto) Absolute Nucleated RBC Nucleated RBC % Puncture Site ABG pH ABG pCO2 ABG pO2 ABG PO2/FiO2 Ratio ABG HCO3 ABG O2 Saturation ABG O2 Content ABG Base Excess A-a Gradient Oxyhemoglobin Carboxyhemoglobin Methemoglobin Reduced Hemoglobin Total Hemoglobin O2 Delivery Device O2 Liters/Min Minute Volume Vent Rate Vent Mode FiO2 Tidal Volume PEEP Peak Inspir Pressure Pressure Support Sodium Potassium Chloride Carbon Dioxide Anion Gap BUN Creatinine Estim Creat Clear Calc Estimated GFR Glucose POC Capillary Glucose 177 H 179 H Calcium Phosphorus Magnesium Total Bilirubin AST ALT Alkaline Phosphatase Total Protein Albumin Ur 24 Hour Volume 2600 Urine Creatinine 17.0 Ur Creatinine 24 Hour 0.4 L Vancomycin Trough 02/21/25 02/21/25 02/21/25 16:44 16:44 16:44 WBC RBC Hgb Hct MCV MCH MCHC RDW Plt Count MPV Immature Gran % (Auto) Neut % (Auto) Lymph % (Auto) [place] % (Auto) Eos % (Auto) Baso % (Auto) Lymph # (Auto) [place] # (Auto) Eos # (Auto) Baso # (Auto) Abs Immat Gran (auto) Absolute Neuts (auto) Absolute Nucleated RBC Nucleated RBC % Puncture Site ABG pH ABG pCO2 ABG pO2 ABG PO2/FiO2 Ratio ABG HCO3 ABG O2 Saturation ABG O2 Content ABG Base Excess A-a Gradient Oxyhemoglobin Carboxyhemoglobin Methemoglobin Reduced Hemoglobin Total Hemoglobin O2 Delivery Device O2 Liters/Min Minute Volume Vent Rate Vent Mode FiO2 Tidal Volume PEEP Peak Inspir Pressure Pressure Support Sodium 149 H Cancelled Potassium 3.7 Cancelled Chloride 120 H Carbon Dioxide Anion Gap BUN Creatinine Estim Creat Clear Calc Estimated GFR Glucose POC Capillary Glucose Calcium Phosphorus Magnesium Total Bilirubin AST ALT Alkaline Phosphatase Total Protein Albumin Ur 24 Hour Volume Urine Creatinine Ur Creatinine 24 Hour Vancomycin Trough 02/21/25 02/21/25 02/21/25 16:44 16:44 16:44 WBC RBC Hgb Hct MCV MCH MCHC RDW Plt Count MPV Immature Gran % (Auto) Neut % (Auto) Lymph % (Auto) [place] % (Auto) Eos % (Auto) Baso % (Auto) Lymph # (Auto) [place] # (Auto) Eos # (Auto) Baso # (Auto) Abs Immat Gran (auto) Absolute Neuts (auto) Absolute Nucleated RBC Nucleated RBC % Puncture Site ABG pH ABG pCO2 ABG pO2 ABG PO2/FiO2 Ratio ABG HCO3 ABG O2 Saturation ABG O2 Content ABG Base Excess A-a Gradient Oxyhemoglobin Carboxyhemoglobin Methemoglobin Reduced Hemoglobin Total Hemoglobin O2 Delivery Device O2 Liters/Min Minute Volume Vent Rate Vent Mode FiO2 Tidal Volume PEEP Peak Inspir Pressure Pressure Support Sodium Potassium Chloride Cancelled Carbon Dioxide 22 Cancelled Anion Gap 7 Cancelled BUN 16 Creatinine Estim Creat Clear Calc Estimated GFR Glucose POC Capillary Glucose Calcium Phosphorus Magnesium Total Bilirubin AST ALT Alkaline Phosphatase Total Protein Albumin Ur 24 Hour Volume Urine Creatinine Ur Creatinine 24 Hour Vancomycin Trough 02/21/25 02/21/25 02/21/25 16:44 16:44 16:44 WBC RBC Hgb Hct MCV MCH MCHC RDW Plt Count MPV Immature Gran % (Auto) Neut % (Auto) Lymph % (Auto) [place] % (Auto) Eos % (Auto) Baso % (Auto) Lymph # (Auto) [place] # (Auto) Eos # (Auto) Baso # (Auto) Abs Immat Gran (auto) Absolute Neuts (auto) Absolute Nucleated RBC Nucleated RBC % Puncture Site ABG pH ABG pCO2 ABG pO2 ABG PO2/FiO2 Ratio ABG HCO3 ABG O2 Saturation ABG O2 Content ABG Base Excess A-a Gradient Oxyhemoglobin Carboxyhemoglobin Methemoglobin Reduced Hemoglobin Total Hemoglobin O2 Delivery Device O2 Liters/Min Minute Volume Vent Rate Vent Mode FiO2 Tidal Volume PEEP Peak Inspir Pressure Pressure Support Sodium Potassium Chloride Carbon Dioxide Anion Gap BUN Cancelled Creatinine 0.33 L Cancelled Estim Creat Clear Calc 161 Cancelled Estimated GFR > 60 Glucose POC Capillary Glucose Calcium Phosphorus Magnesium Total Bilirubin AST ALT Alkaline Phosphatase Total Protein Albumin Ur 24 Hour Volume Urine Creatinine Ur Creatinine 24 Hour Vancomycin Trough 02/21/25 02/21/25 02/21/25 16:44 16:44 16:44 WBC RBC Hgb Hct MCV MCH MCHC RDW Plt Count MPV Immature Gran % (Auto) Neut % (Auto) Lymph % (Auto) [place] % (Auto) Eos % (Auto) Baso % (Auto) Lymph # (Auto) [place] # (Auto) Eos # (Auto) Baso # (Auto) Abs Immat Gran (auto) Absolute Neuts (auto) Absolute Nucleated RBC Nucleated RBC % Puncture Site ABG pH ABG pCO2 ABG pO2 ABG PO2/FiO2 Ratio ABG HCO3 ABG O2 Saturation ABG O2 Content ABG Base Excess A-a Gradient Oxyhemoglobin Carboxyhemoglobin Methemoglobin Reduced Hemoglobin Total Hemoglobin O2 Delivery Device O2 Liters/Min Minute Volume Vent Rate Vent Mode FiO2 Tidal Volume PEEP Peak Inspir Pressure Pressure Support Sodium Potassium Chloride Carbon Dioxide Anion Gap BUN Creatinine Estim Creat Clear Calc Estimated GFR Cancelled Glucose 175 H Cancelled POC Capillary Glucose Calcium 8.5 Cancelled Phosphorus 2.1 L Magnesium Total Bilirubin AST ALT Alkaline Phosphatase Total Protein Albumin Ur 24 Hour Volume Urine Creatinine Ur Creatinine 24 Hour Vancomycin Trough 02/21/25 02/21/25 02/21/25 16:44 20:25 22:59 WBC RBC Hgb Hct MCV MCH MCHC RDW Plt Count MPV Immature Gran % (Auto) Neut % (Auto) Lymph % (Auto) [place] % (Auto) Eos % (Auto) Baso % (Auto) Lymph # (Auto) [place] # (Auto) Eos # (Auto) Baso # (Auto) Abs Immat Gran (auto) Absolute Neuts (auto) Absolute Nucleated RBC Nucleated RBC % Puncture Site ABG pH ABG pCO2 ABG pO2 ABG PO2/FiO2 Ratio ABG HCO3 ABG O2 Saturation ABG O2 Content ABG Base Excess A-a Gradient Oxyhemoglobin Carboxyhemoglobin Methemoglobin Reduced Hemoglobin Total Hemoglobin O2 Delivery Device O2 Liters/Min Minute Volume Vent Rate Vent Mode FiO2 Tidal Volume PEEP Peak Inspir Pressure Pressure Support Sodium Potassium Chloride Carbon Dioxide Anion Gap BUN Creatinine Estim Creat Clear Calc Estimated GFR Glucose POC Capillary Glucose 162 H Calcium Phosphorus Cancelled Magnesium 2.0 Total Bilirubin AST ALT Alkaline Phosphatase Total Protein Albumin 2.8 L Ur 24 Hour Volume Urine Creatinine Ur Creatinine 24 Hour Vancomycin Trough 15.2 02/22/25 02/22/25 02/22/25 05:03 06:21 07:07 WBC 9.2 RBC 3.46 L Hgb 9.2 L Hct 28.0 L MCV 80.9 MCH 26.6 MCHC 32.9 RDW 17.2 H Plt Count 146 L MPV 9.4 Immature Gran % (Auto) 2.3 H Neut % (Auto) 83.6 H Lymph % (Auto) 6.7 L Taliaferro % (Auto) 6.5 Eos % (Auto) 0.4 Baso % (Auto) 0.5 Lymph # (Auto) 0.62 L Taliaferro # (Auto) 0.6 Eos # (Auto) 0.0 Baso # (Auto) 0.1 Abs Immat Gran (auto) 0.21 H Absolute Neuts (auto) 7.7 H Absolute Nucleated RBC 0.040 H Nucleated RBC % 0.4 H Puncture Site Right brachial ABG pH 7.496 H ABG pCO2 24.7 L ABG pO2 126.2 H ABG PO2/FiO2 Ratio 3.15 ABG HCO3 18.7 L ABG O2 Saturation 98.8 ABG O2 Content 13.9 L ABG Base Excess -3.5 A-a Gradient 130.6 Oxyhemoglobin 98.3 Carboxyhemoglobin 0.3 Methemoglobin 0.0 Reduced Hemoglobin 1.4 Total Hemoglobin 9.9 L O2 Delivery Device Ventilator O2 Liters/Min Not Reportable Minute Volume Not Reportable Vent Rate 24 Vent Mode Cmv FiO2 40 Tidal Volume 450 PEEP 10 Peak Inspir Pressure Not Reportable Pressure Support Not Reportable Sodium 145 Potassium 3.5 Chloride 115 H Carbon Dioxide 22 Anion Gap 8 BUN 13 Creatinine 0.32 L Estim Creat Clear Calc 168 Estimated GFR > 60 Glucose 162 H POC Capillary Glucose 172 H Calcium 8.4 Phosphorus 2.3 L Magnesium 1.8 Total Bilirubin 0.7 AST 93 H ALT 154 H Alkaline Phosphatase 275 H Total Protein 5.8 L Albumin 2.7 L Ur 24 Hour Volume Urine Creatinine Ur Creatinine 24 Hour Vancomycin Trough Quality VTE Prophylaxis VTE prophylaxis: pharmacologic ordered
[2025-02-22] MEDS: FOLIC ACID 1 MG/0.2 ML INJ IV PUSH (10:10)
--- NOTE | 2025-02-22 10:58 | PCNFU ---
Nutrition Follow-Up Complete: Severe Protein Calorie Malnutrition as related to inadequate protein-energy intake with increased protein-energy needs in setting of chronic disease as evidenced by minimal oral intake for > 1-2 months; severe muscle wasting (temporalis/clavicile) and severe subcutaneous fat loss (orbital fat pads). Goal: Meet estimated nutritional needs Patient is progressing towards goal. We will continue current goal. Pt current nutrition is Vital AF 1.2 at 30 ml/hr. Nutrition recommendation: goal rate at 70 ml/hr Last recorded weight is 65.7 kg, up from 56 kg on admit. Bowel Motility: No BM reported. Labs Reviewed: PO4 2.3, Alb 2.7, Glu 162, Cr 0.32 Meds Noted: Thiamine, Folic Acid, Precedex, Reglan. Skin: No pressure ulcers reported. Additional Notes: Patient remains on mechanical vent. Tube tube feedings are being tolerated of Vital AF 1.2 at 20 ml/hr. MD order to increase to 30 ml/hr today. Recommend goal rate at 70 ml/hr providing 1848 kcal/116 gm protein/1249 ml water. Flush at 200 ml q 4 hours. Na WNL would recommend decreasing flushes to 100 ml q 4 hours. Will monitor weight, labs, skin, diet orders, meds every Friday and Friday.
--- NOTE | 2025-02-22 11:05 | P.PNNP_ITS ---
Progress Note: A&P Assessment and Plan (1) Metabolic acidosis: Code(s): E87.20 - Acidosis, unspecified Status: Acute Assessment and Plan: * due to a combination of lactic acidosis and starvation ketoacidosis * slow and steady improvement noted * continue current therapy (2) Hypernatremia: Code(s): E87.0 - Hyperosmolality and hypernatremia Status: Acute Assessment and Plan: * slow improvement noted * due to free water deficit * improvement noted with D5W IVFs * discontinued today * use D5W IVFs as needed * continue free water flushes and titrate as needed (3) Electrolyte imbalance: Code(s): E87.8 - Other disorders of electrolyte and fluid balance, not elsewhere classified Status: Acute Assessment and Plan: * noted issues with hypokalemia and hypophosphatemia... * probably related to poor oral intake with a component of re-feeding syndrome * overall, continue to slowly improve * replete as needed * follow magnesium as well (4) Septic shock: Code(s): A41.9 - Sepsis, unspecified organism; R65.21 - Severe sepsis with septic shock Status: Acute Assessment and Plan: * as noted on presentation - AMS, tachypnea, hypoxia, leukocytosis and subsequent hypotension * suspect secondary to pneumonia and possible UTI * s/p IVF resuscitation * was on vasopressor therapy but has since been weaned off * culture data noted: * blood culture negative to date * urine culture with superficial organisms * sputum culture with Klebsiella, MRSA, and Dolores tropicalis * on antibiotics * follow hemodynamics (5) Acute respiratory failure: Code(s): J96.00 - Acute respiratory failure, unspecified whether with hypoxia or hypercapnia Status: Acute Assessment and Plan: * presumable due to pneumonia and sepsis * intubated on 02/17 * gentle diuresis as tolerated * on antibiotics for pneumonia * ventilator weaning as tolerated (6) Anemia: Code(s): D64.9 - Anemia, unspecified Status: Acute Assessment and Plan: * likely secondary to acute illness * follow trend of H/H * PRBC transfusion per protocol (7) Severe protein-calorie malnutrition: Code(s): E43 - Unspecified severe protein-calorie malnutrition Status: Acute Assessment and Plan: * poor oral intake/nutrion prior to admission * on tube feeds * pharmacist helper recommendations noted * on supplemental vitamins as well (8) Diabetes: Code(s): E11.9 - Type 2 diabetes mellitus without complications Status: Acute Assessment and Plan: * follow accu-cheks * glycemic control per intensivisit/hospitalist Will continue to follow. L Subjective Date/time seen: 02/22/25 11:05 Interval history: Follow-up for hypernatremia, hypokalemia, hypophosphatemia, and acidosis Chart reviewed -- assuming care from Dr. Hassan; remains intubated and on mechanical ventilation; off sedation and able to follow simple commands and nod head to simple yes/no questions; tolerating tube feeds with relative stability in electrolytes and acidosis. Exam 2 Narrative: General: cachectic male intubated and on mechanical ventilation Heart: normal S1 and S2; no rub Lungs: coarse breath sounds Abdomen: soft, nontender, nondistended, positive bowel sounds Extremities: no cyanosis or clubbing; no edema Skin: warm and dry Objective Data Vital Signs Vital Signs: Vital Signs Temp Pulse Resp BP Pulse Ox O2 Del Method FiO2 02/22/25 11:00 97.7 F 101 H 26 H 98/79 L 98 02/22/25 10:38 94 100 Mechanical Ventilation 30 02/22/25 10:00 117 H 31 H 02/22/25 10:00 114 H 02/22/25 10:00 97.8 F 105 H 26 H 111/80 99 02/22/25 08:00 118 H 02/22/25 08:00 97.6 F 118 H 27 H 129/80 100 02/22/25 08:00 40 02/22/25 07:58 120 H 31 H 02/22/25 07:53 120 H 33 H 02/22/25 07:41 Mechanical Ventilation 40 02/22/25 07:40 122 H 30 H 02/22/25 06:00 97.6 F 119 H 36 H 140/88 100 02/22/25 05:17 120 H 100 Mechanical Ventilation 02/22/25 04:00 98.3 F 120 H 28 H 141/81 H 100 02/22/25 04:00 40 02/22/25 04:00 120 H 02/22/25 03:38 118 H 28 H 100 Mechanical Ventilation 02/22/25 02:00 98.6 F 118 H 28 H 124/112 H 100 02/22/25 02:00 118 H 02/22/25 01:52 118 H 100 Mechanical Ventilation 40 02/22/25 01:50 119 H 30 H 02/22/25 00:00 98.3 F 116 H 27 H 163/106 H 100 02/21/25 23:38 40 02/21/25 23:37 117 H 02/21/25 23:36 114 H 26 H 100 Mechanical Ventilation 40 02/21/25 23:15 114 H 100 Mechanical Ventilation 40 02/21/25 22:00 117 H 26 H 114/89 100 02/21/25 22:00 117 H 02/21/25 20:20 115 H 100 Mechanical Ventilation 40 02/21/25 20:17 121 H 100 H 02/21/25 20:00 98.3 F 113 H 25 H 149/89 H 100 02/21/25 20:00 40 02/21/25 20:00 113 H 02/21/25 19:55 113 H 24 H 100 Mechanical Ventilation 40 Intake/Output Intake/Output: Intake & Output 02/19/25 02/20/25 02/21/25 02/22/25 23:59 23:59 23:59 23:59 Intake Total 5459.3667 3881.1 4762.2 2256.5 Output Total 1900 1600 2450 1875 Balance 3559.3667 2281.1 2312.2 381.5 Meds/Results Medications: Active Medications Generic Name Dose Route Start Last Admin Trade Name Freq PRN Reason Stop Dose Admin Acetaminophen 650 mg 02/17/25 20:19 02/22/25 17:37 Acetaminophen 325 Mg Tablet FEED TUBE 650 mg Q4H PRN Administration Mild Pain (1-3) or Fever Alteplase, Recombinant 2 mg 02/21/25 22:45 02/21/25 23:00 Alteplase 2 Mg Vial (Cathflo) IV PUSH 2 mg ONCE PRN Administration Line Occlusion Bisacodyl 10 mg 02/20/25 11:01 Bisacodyl 10 Mg Suppository RECTAL QAM PRN Constipation Dextrose 12.5 gm 02/17/25 21:35 Dextrose 50% 25 Gm/50 Ml Syringe IV PUSH PRN PRN Hypoglycemia Protocol Folic Acid 1 mg 02/19/25 09:00 02/22/25 10:10 Folic Acid 1 Mg/0.2 Ml Inj IV PUSH 1 mg QAM KENNTEH Administration Glucagon 1 mg 02/17/25 21:35 Glucagon For Inj 1 Mg Vial IM PRN PRN Hypoglycemia Protocol Glucose 15 gm 02/17/25 21:35 Glucose Oral Gel 15 Gm Of Glucse In 37.5 Gm Tube PO PRN PRN Hypoglycemia Protocol Heparin Sodium (Porcine) 5,000 units 02/18/25 14:00 02/22/25 15:12 Heparin Sodium 5,000 Units/Ml Vial SUB-Q 5,000 units Q8HR KENNETH Administration Hydralazine HCl 10 mg 02/21/25 19:36 02/22/25 00:00 Hydralazine Hcl 20 Mg/Ml Vial IV PUSH 10 mg Q6H PRN Administration Blood Pressure - High Cefepime HCl 2 gm/ Sodium 50 mls @ 100 mls/hr 02/18/25 06:00 02/22/25 17:37 Chloride IVPB 100 mls/hr Q12H KENNETH Administration Dextrose 1,000 mls @ 100 mls/hr 02/17/25 21:35 Dextrose 5% 1,000 Ml IVPB PRN PRN Hypoglycemia Protocol Doxycycline Hyclate 100 mg/ 100 mls @ 100 mls/hr 02/18/25 08:00 02/22/25 07:53 Sodium Chloride IVPB 02/23/25 07:59 100 mls/hr Q12H KENNETH Administration Vancomycin HCl 2,000 mg in 500 mls @ 250 mls/hr 02/22/25 00:00 02/22/25 15:11 Vancomycin 2,000 Mg/Ns 500 Ml IVPB 250 mls/hr Q12H KENNETH Administration Dexmedetomidine HCl 400 mcg in 100 mls @ 13.14 mls/hr 02/22/25 07:40 02/22/25 16:36 Precedex 400 Mcg/100 Ml IV CONT 0.8 mcg/kg/hr .Q7H37M KENNETH 13.14 mls/hr Protocol Titration 0.8 MCG/KG/HR Insulin Aspart 3 - 6 units 02/18/25 00:00 02/22/25 17:58 Insulin Aspart (*Bkc) 100 Units/Ml SUB-Q Not Given Q4HR KENNETH Protocol Ipratropium Galt 0.5 mg 02/22/25 07:33 Ipratropium Br 0.02% Inh Soln 0.5 Mg/2.5 Ml Vial INHALATION Q6HRT PRN Wheezing Levalbuterol HCl 0.63 mg 02/22/25 07:33 Levalbuterol Neb 1.25 Mg/3 Ml INHALATION Q6HRT PRN Wheezing Metoclopramide HCl 10 mg 02/19/25 12:00 02/22/25 17:37 Metoclopramide Hcl Inj 10 Mg/2 Ml Vial IV PUSH 10 mg Q6HR KENNETH Administration Multi-Ingred Cream/Lotion/Oil/Oint 1 applic 02/17/25 21:00 02/22/25 08:04 Mineral Oil/White Petrolatum Ointment EACH EYE 1 applic Q12HR KENNETH Administration Multivitamins Therapeutic 1 tablet 02/23/25 10:00 Multivitamins Therapeutic Tab (*Bkc) FEED TUBE QAM KENNETH Pantoprazole Sodium 40 mg 02/18/25 09:00 02/22/25 08:01 Pantoprazole Sodium Iv 40 Mg Vial IV PUSH 40 mg Q12HR KENNETH Administration Polyethylene Glycol 17 gm 02/21/25 09:00 02/22/25 08:01 Polyethylene Glycol 3350 17 Gm Powd.Pack PO 17 gm QAM KENNETH Administration Senna/Docusate Sodium 1 tab 02/17/25 21:00 02/21/25 20:22 Senna/Docusate Sodium Tablet FEED TUBE 1 tab HS KENNETH Administration Sodium Chloride 10 ml 02/18/25 22:00 02/22/25 15:12 Central Line Flush IV PUSH 10 ml Q8HR KENNETH Administration Sodium Chloride 20 ml 02/18/25 16:07 02/20/25 05:33 Central Line Flush IV PUSH 20 ml PRN PRN Administration after blood draws Thiamine HCl 100 mg 02/19/25 09:00 02/22/25 08:01 Thiamine Hcl 200 Mg/2 Ml Vial IV PUSH 100 mg QAM KENNETH Administration Radiology Results: ITS Impressions Head CT 02/17/25 16:55 IMPRESSION: 1. No acute intracranial hemorrhage. No mass effect. 2. Probable chronic ischemic white matter change. Chest/Abdomen/Pelvis CT 02/17/25 17:11 IMPRESSION: 1. Moderate sized groundglass opacities scattered throughout both lungs most prominent in the lower lobes. In addition, there are small to moderate sized patchy consolidations scattered throughout both lungs most prominent in the lower lobes. The findings are concerning for multilobar pneumonia. Other etiologies are possible but are felt to be less likely. Recommend follow-up to resolution. 2.There is a Daniels catheter in the bladder. Mild concentric thickening of the calvo of the bladder. Small amount of nondependent air in the bladder which may be due to recent instrumentation or cystitis. 3. Large amount of stool in the rectum. 4. The stomach is distended and filled with air. 5. Small amount of fat stranding with a few locules of air about the posterior aspect of the mid and distal sacrum. No obvious loculated fluid collection identified. No convincing CT evidence for sacral osteomyelitis at this time. Abdomen Ultrasound 02/19/25 13:00 Impression: Limited study. No acute process Abdomen X-Ray 02/20/25 10:54 IMPRESSION: 1. No acute abdominal abnormality. 2: Bibasilar infiltrates may represent edema or pneumonia. Renal Ultrasound 02/20/25 17:18 IMPRESSION: 1. Normal kidneys without hydronephrosis. 2. Diffuse trabeculated bladder wall thickening suggestive of sequela of chronic outlet obstruction. Chest X-Ray 02/22/25 07:28 IMPRESSION: 1. Slight decrease in opacities in the bilateral lower lung zones, left greater than right, which could represent improving pneumonia and/or atelectasis. Labs Labs: Laboratory Tests 02/22/25 06:21 02/22/25 06:21 Calcium 8.4 Phosphorus 2.3 L Magnesium 1.8 Total Bilirubin 0.7 AST 93 H ALT 154 H Alkaline Phosphatase 275 H Total Protein 5.8 L Albumin 2.7 L Microbiology 02/18/25 11:29 Sputum Sputum White Blood Cells - Final 02/18/25 11:29 Sputum Sputum Epithelial Cells - Final 02/18/25 11:29 Sputum Gram Stain Sputum Result 1 - Final 02/18/25 11:29 Sputum Gram Stain Sputum Result 2 - Final 02/18/25 11:29 Sputum Gram Stain Sputum Result 3 - Final 02/18/25 11:29 Sputum Gram Stain Sputum Result 4 - Final 02/18/25 11:29 Sputum Gram Stain Evaluation - Final 02/18/25 11:29 Sputum Sputum Culture - Final Klebsiella pneumoniae Methicillin Resis Staph Aureus Dolores tropicalis
[2025-02-22] MEDS: dexmedeTOMIDine 400 MCG/100 ML 400 MCG/100 ML BAG 9.86 MCG IV CONT (15:14)
[2025-02-22] MEDS: FUROSEMIDE INJ 40 MG/4 ML VIAL 20 MG IV PUSH (15:16)
--- NOTE | 2025-02-22 15:50 | P.PNIM_ITS ---
Progress Note: A&P Assessment and Plan (1) Septic shock: Code(s): A41.9 - Sepsis, unspecified organism; R65.21 - Severe sepsis with septic shock Status: Acute Assessment and Plan: 02/17: Patient presented from a alf with AMS and SOB. WBC 17K. Bicarb 7 (AG 28). UA consistent with UTI. Lactic to 3.6 CT Ch/A/P showing ground-glass opacities throughout both lungs, thickening of bladder wall, large stool ball, distended stomach, and small amount of fat stranding with a few locules of air in the mid and distal sacrum. Sepsis with lactic acidosis, leukocytosis, resp failure, tachycardia, fever felt related to pneumonia and UTI +/- sacral decub Received 2L IV fluid bolus in ER and started on cefepime and vancomycin (02/17); Doxy added 02/18 Admitted to IMU but he decompensated and rapid response was called Patient intubated 02/17 and started on Phenylephrine for hypoxia and hypotension. BCx 02/17 - NGTD UCx 02/17 - growing GNB -> greater than 2 organisms of >100K colonies but not grown Sputum Cx 02/18 - MRSA, Klebsiella pneumonia, Dolores tropicalis Central line placed and Levophed added 02/18. WBC normal now. Fever curve better. Acidosis better. Suspect related to Klebs iella PNA. Levophed weaned off 02/19 and phenylephrine 02/20. Continue Cefepime, Vanco and Doxy. Monitor BP. Follow up cultures. Asked to have UCx grown out. (2) Acute respiratory failure: Code(s): J96.00 - Acute respiratory failure, unspecified whether with hypoxia or hypercapnia Status: Acute Assessment and Plan: Patient was transferred to the ICU from IMU for acute respiratory failure and emergently intubated (02/17) Probably related to Klebsiella pneumonia CXR reviewed personally today showing improved findings of multilobar airspace disease. ABG 7.49/25/126 on MV. Director [employer]ing [employer] consulted and appreciate their input Patient became tachypneic with vent trial today. Fluid positive so Lasix given. Vent management per master control technician (3) Multifocal pneumonia: Code(s): J18.8 - Other pneumonia, unspecified organism Status: Acute Assessment and Plan: Multifocal pneumonia by imaging. Abx as above. Follow-up on culture results (4) Acute UTI: Code(s): N39.0 - Urinary tract infection, site not specified Status: Acute Assessment and Plan: UA was concerning for UTI Complicated UTI with SP catheter UCx initially growing GNB but now saying 2 organisms of >100K colonies. Continue Abx as above. Try to have Lab grow out bacteria. (5) Electrolyte imbalance: Code(s): E87.8 - Other disorders of electrolyte and fluid balance, not elsewhere classified Status: Acute Assessment and Plan: Patient with multiple electrolyte abnormalities Elevated sodium related to insensible fluid loss and was treated appropriately. Na better. Hypokalemia and hypophos noted and currently being replaced Continue to follow and replace as needed (6) Elevated LFTs: Code(s): R79.89 - Other specified abnormal findings of blood chemistry Status: Acute Assessment and Plan: LFTs elevated felt related to shock liver Abd US was limited but showing no acute hepatic disease. Levels peaked and are trending down now Follow (7) Fecal impaction: Code(s): K56.41 - Fecal impaction Status: Acute Assessment and Plan: CT showing large stool ball on admission. Senna started. Miralax added. Tolerating TF better Remains on Reglan. Having BMs. Follow (8) Diabetes: Code(s): E11.9 - Type 2 diabetes mellitus without complications Status: Acute Assessment and Plan: The patient's blood glucose was reviewed on 02/22 Glucose remains well controlled. Continue AccuCheks covering with sliding scale. Hypoglycemia protocol available as needed. Continue to monitor (9) Sacral ulcer: Code(s): L98.429 - Non-pressure chronic ulcer of back with unspecified severity Status: Acute Assessment and Plan: Patient has a sacral ulcer noted present on admission. CT Abd/Pelvis showing small amount of fat stranding with a few locules of air about the posterior aspect of the mid and distal sacrum. No obvious loculated fluid collection identified. No convincing CT evidence for sacral osteomyelitis at this time. Wound Care to evaluate. Continue abx. Plan DVT prophylaxis: Heparin subQ Stress ulcer prophylaxis: Protonix Code Status: Full code Subjective Date/time seen: 02/22/25 15:50 Interval history: 64yo male with HLD, DM and Asthma who presents with altered mental status and hypoxia from his alf. Rapid response called once patient arrived to floor for being hypoxic. Patient remains intubated. Off sedation but Precedex was added. Patient following commands. Tolerating TF. +BMs. He is alert and denies chest pain or abd pain. Review of Systems Review of Systems: ROS unobtainable: Yes unobtainable due to endotracheal tube Exam Narrative: AF 97.7 122/75 95 30 100% MV Gen - intubated and mildly sedated HEENT - NGT right nares. ETT secured. Neck - TLC right IJ Chest - clear anteriorly but coarse BS in the flanks. CV - RRR S1/S2. Tele showing no significant dysrhythmias Abd - Soft, scaphoid. +BS. Suprapubic dressing clean and dry. SP catheter secured draining clear yellow urine Ext - No pedal edema. Neuro - follows commands, remains calm. Psych - unable to assess Skin - Warm and dry Objective Data Vital Signs Vital Signs: Vital Signs - 24 hr 02/21/25 15:59 02/21/25 16:00 02/21/25 16:00 Temperature 97.5 F L Pulse Rate 110 H 107 H 108 H Respiratory Rate 24 H 24 H Blood Pressure 130/81 Pulse Oximetry 100 100 Oxygen Delivery Mechanical Ventilation Fraction of Inspired Oxygen 40 02/21/25 17:18 02/21/25 18:00 02/21/25 18:00 Temperature Pulse Rate 107 H 110 H 113 H Respiratory Rate 24 H Blood Pressure 138/94 H Pulse Oximetry 100 100 Oxygen Delivery Mechanical Ventilation Fraction of Inspired Oxygen 40 02/21/25 19:55 02/21/25 20:00 02/21/25 20:00 Temperature Pulse Rate 113 H 113 H Respiratory Rate 24 H Blood Pressure Pulse Oximetry 100 Oxygen Delivery Mechanical Ventilation Fraction of Inspired Oxygen 40 40 02/21/25 20:00 02/21/25 20:17 02/21/25 20:20 Temperature 98.3 F Pulse Rate 113 H 121 H 115 H Respiratory Rate 25 H 100 H Blood Pressure 149/89 H Pulse Oximetry 100 100 Oxygen Delivery Mechanical Ventilation Fraction of Inspired Oxygen 40 02/21/25 22:00 02/21/25 22:00 02/21/25 23:15 Temperature Pulse Rate 117 H 117 H 114 H Respiratory Rate 26 H Blood Pressure 114/89 Pulse Oximetry 100 100 Oxygen Delivery Mechanical Ventilation Fraction of Inspired Oxygen 40 02/21/25 23:36 02/21/25 23:37 02/21/25 23:38 Temperature Pulse Rate 114 H 117 H Respiratory Rate 26 H Blood Pressure Pulse Oximetry 100 Oxygen Delivery Mechanical Ventilation Fraction of Inspired Oxygen 40 40 02/22/25 00:00 02/22/25 01:50 02/22/25 01:52 Temperature 98.3 F Pulse Rate 116 H 119 H 118 H Respiratory Rate 27 H 30 H Blood Pressure 163/106 H Pulse Oximetry 100 100 Oxygen Delivery Mechanical Ventilation Fraction of Inspired Oxygen 40 02/22/25 02:00 02/22/25 02:00 02/22/25 03:38 Temperature 98.6 F Pulse Rate 118 H 118 H 118 H Respiratory Rate 28 H 28 H Blood Pressure 124/112 H Pulse Oximetry 100 100 Oxygen Delivery Mechanical Ventilation Fraction of Inspired Oxygen 40 02/22/25 04:00 02/22/25 04:00 02/22/25 04:00 Temperature 98.3 F Pulse Rate 120 H 120 H Respiratory Rate 28 H Blood Pressure 141/81 H Pulse Oximetry 100 Oxygen Delivery Fraction of Inspired Oxygen 40 02/22/25 05:17 02/22/25 06:00 02/22/25 07:40 Temperature 97.6 F Pulse Rate 120 H 119 H 122 H Respiratory Rate 36 H 30 H Blood Pressure 140/88 Pulse Oximetry 100 100 Oxygen Delivery Mechanical Ventilation Fraction of Inspired Oxygen 40 02/22/25 07:41 02/22/25 07:53 02/22/25 07:58 Temperature Pulse Rate 120 H 120 H Respiratory Rate 33 H 31 H Blood Pressure Pulse Oximetry Oxygen Delivery Mechanical Ventilation Fraction of Inspired Oxygen 40 02/22/25 08:00 02/22/25 08:00 02/22/25 08:00 Temperature 97.6 F Pulse Rate 118 H 118 H Respiratory Rate 27 H Blood Pressure 129/80 Pulse Oximetry 100 Oxygen Delivery Fraction of Inspired Oxygen 40 02/22/25 10:00 02/22/25 10:00 02/22/25 10:00 Temperature 97.8 F Pulse Rate 105 H 114 H 117 H Respiratory Rate 26 H 31 H Blood Pressure 111/80 Pulse Oximetry 99 Oxygen Delivery Fraction of Inspired Oxygen 02/22/25 10:38 02/22/25 12:00 02/22/25 12:00 Temperature 97.7 F Pulse Rate 94 101 H Respiratory Rate 26 H Blood Pressure 98/79 L Pulse Oximetry 100 98 Oxygen Delivery Mechanical Ventilation Fraction of Inspired Oxygen 30 30 02/22/25 12:00 02/22/25 12:00 02/22/25 14:00 Temperature 97.7 F Pulse Rate 97 95 101 H Respiratory Rate 28 H 25 H Blood Pressure 122/75 Pulse Oximetry 98 Oxygen Delivery Fraction of Inspired Oxygen 02/22/25 14:00 02/22/25 14:00 02/22/25 14:03 Temperature Pulse Rate 98 104 H 94 Respiratory Rate 26 H Blood Pressure Pulse Oximetry 100 Oxygen Delivery Mechanical Ventilation Fraction of Inspired Oxygen 30 02/22/25 15:14 02/22/25 15:14 Temperature Pulse Rate 95 95 Respiratory Rate 30 H 30 H Blood Pressure Pulse Oximetry Oxygen Delivery Fraction of Inspired Oxygen Intake/Output Intake/Output: Intake & Output 02/19/25 02/20/25 02/21/25 02/22/25 23:59 23:59 23:59 23:59 Intake Total 5459.3667 3881.1 4762.2 2193.0 Output Total 1900 1600 2450 1875 Balance 3559.3667 2281.1 2312.2 318.0 Meds/Results Medications: Active Medications Generic Name Dose Route Start Last Admin Trade Name Freq PRN Reason Stop Dose Admin Acetaminophen 650 mg 02/17/25 20:19 02/18/25 14:31 Acetaminophen 325 Mg Tablet FEED TUBE 650 mg Q4H PRN Administration Mild Pain (1-3) or Fever Alteplase, Recombinant 2 mg 02/21/25 22:45 02/21/25 23:00 Alteplase 2 Mg Vial (Cathflo) IV PUSH 2 mg ONCE PRN Administration Line Occlusion Bisacodyl 10 mg 02/20/25 11:01 Bisacodyl 10 Mg Suppository RECTAL QAM PRN Constipation Dextrose 12.5 gm 02/17/25 21:35 Dextrose 50% 25 Gm/50 Ml Syringe IV PUSH PRN PRN Hypoglycemia Protocol Folic Acid 1 mg 02/19/25 09:00 02/22/25 10:10 Folic Acid 1 Mg/0.2 Ml Inj IV PUSH 1 mg QAM KENNETH Administration Glucagon 1 mg 02/17/25 21:35 Glucagon For Inj 1 Mg Vial IM PRN PRN Hypoglycemia Protocol Glucose 15 gm 02/17/25 21:35 Glucose Oral Gel 15 Gm Of Glucse In 37.5 Gm Tube PO PRN PRN Hypoglycemia Protocol Heparin Sodium (Porcine) 5,000 units 02/18/25 14:00 02/22/25 15:12 Heparin Sodium 5,000 Units/Ml Vial SUB-Q 5,000 units Q8HR KENNETH Administration Hydralazine HCl 10 mg 02/21/25 19:36 02/22/25 00:00 Hydralazine Hcl 20 Mg/Ml Vial IV PUSH 10 mg Q6H PRN Administration Blood Pressure - High Cefepime HCl 2 gm/ Sodium 50 mls @ 100 mls/hr 02/18/25 06:00 02/22/25 06:32 Chloride IVPB 100 mls/hr Q12H KENNETH Administration Dextrose 1,000 mls @ 100 mls/hr 02/17/25 21:35 Dextrose 5% 1,000 Ml IVPB PRN PRN Hypoglycemia Protocol Doxycycline Hyclate 100 mg/ 100 mls @ 100 mls/hr 02/18/25 08:00 02/22/25 07:53 Sodium Chloride IVPB 02/23/25 07:59 100 mls/hr Q12H KENNETH Administration Vancomycin HCl 2,000 mg in 500 mls @ 250 mls/hr 02/22/25 00:00 02/22/25 15:11 Vancomycin 2,000 Mg/Ns 500 Ml IVPB 250 mls/hr Q12H KENNETH Administration Dexmedetomidine HCl 400 mcg in 100 mls @ 9.855 mls/hr 02/22/25 07:40 02/22/25 15:14 Precedex 400 Mcg/100 Ml IV CONT 0.6 mcg/kg/hr .Q10H9M KENNETH 9.86 mls/hr Protocol Administration 0.6 MCG/KG/HR Insulin Aspart 3 - 6 units 02/18/25 00:00 02/22/25 15:11 Insulin Aspart (*Bkc) 100 Units/Ml SUB-Q Not Given Q4HR KENNETH Protocol Ipratropium [place] 0.5 mg 02/22/25 07:33 Ipratropium Br 0.02% Inh Soln 0.5 Mg/2.5 Ml Vial INHALATION Q6HRT PRN Wheezing Levalbuterol HCl 0.63 mg 02/22/25 07:33 Levalbuterol Neb 1.25 Mg/3 Ml INHALATION Q6HRT PRN Wheezing Metoclopramide HCl 10 mg 02/19/25 12:00 02/22/25 15:11 Metoclopramide Hcl Inj 10 Mg/2 Ml Vial IV PUSH 10 mg Q6HR KENNETH Administration Multi-Ingred Cream/Lotion/Oil/Oint 1 applic 02/17/25 21:00 02/22/25 08:04 Mineral Oil/White Petrolatum Ointment EACH EYE 1 applic Q12HR KENNETH Administration Multivitamins Therapeutic 1 tablet 02/23/25 10:00 Multivitamins Therapeutic Tab (*Bkc) FEED TUBE QAM KENNETH Pantoprazole Sodium 40 mg 02/18/25 09:00 02/22/25 08:01 Pantoprazole Sodium Iv 40 Mg Vial IV PUSH 40 mg Q12HR KENNETH Administration Polyethylene Glycol 17 gm 02/21/25 09:00 02/22/25 08:01 Polyethylene Glycol 3350 17 Gm Powd.Pack PO 17 gm QAM KENNETH Administration Senna/Docusate Sodium 1 tab 02/17/25 21:00 02/21/25 20:22 Senna/Docusate Sodium Tablet FEED TUBE 1 tab HS KENNETH Administration Sodium Chloride 10 ml 02/18/25 22:00 02/22/25 15:12 Central Line Flush IV PUSH 10 ml Q8HR KENNETH Administration Sodium Chloride 20 ml 02/18/25 16:07 02/20/25 05:33 Central Line Flush IV PUSH 20 ml PRN PRN Administration after blood draws Thiamine HCl 100 mg 02/19/25 09:00 02/22/25 08:01 Thiamine Hcl 200 Mg/2 Ml Vial IV PUSH 100 mg QAM KENNETH Administration Radiology Results: ITS Impressions Head CT 02/17/25 16:55 IMPRESSION: 1. No acute intracranial hemorrhage. No mass effect. 2. Probable chronic ischemic white matter change. Chest/Abdomen/Pelvis CT 02/17/25 17:11 IMPRESSION: 1. Moderate sized groundglass opacities scattered throughout both lungs most prominent in the lower lobes. In addition, there are small to moderate sized patchy consolidations scattered throughout both lungs most prominent in the lower lobes. The findings are concerning for multilobar pneumonia. Other etiologies are possible but are felt to be less likely. Recommend follow-up to resolution. 2.There is a Daniels catheter in the bladder. Mild concentric thickening of the calvo of the bladder. Small amount of nondependent air in the bladder which may be due to recent instrumentation or cystitis. 3. Large amount of stool in the rectum. 4. The stomach is distended and filled with air. 5. Small amount of fat stranding with a few locules of air about the posterior aspect of the mid and distal sacrum. No obvious loculated fluid collection identified. No convincing CT evidence for sacral osteomyelitis at this time. Abdomen Ultrasound 02/19/25 13:00 Impression: Limited study. No acute process Abdomen X-Ray 02/20/25 10:54 IMPRESSION: 1. No acute abdominal abnormality. 2: Bibasilar infiltrates may represent edema or pneumonia. Renal Ultrasound 02/20/25 17:18 IMPRESSION: 1. Normal kidneys without hydronephrosis. 2. Diffuse trabeculated bladder wall thickening suggestive of sequela of chronic outlet obstruction. Chest X-Ray 02/22/25 07:28 IMPRESSION: 1. Slight decrease in opacities in the bilateral lower lung zones, left greater than right, which could represent improving pneumonia and/or atelectasis. Labs Labs: Laboratory Results - last 24 hr 02/20/25 02/21/25 02/21/25 11:20 16:05 16:44 WBC RBC Hgb Hct MCV MCH MCHC RDW Plt Count MPV Immature Gran % (Auto) Neut % (Auto) Lymph % (Auto) [place] % (Auto) Eos % (Auto) Baso % (Auto) Lymph # (Auto) [place] # (Auto) Eos # (Auto) Baso # (Auto) Abs Immat Gran (auto) Absolute Neuts (auto) Absolute Nucleated RBC Nucleated RBC % Puncture Site ABG pH ABG pCO2 ABG pO2 ABG PO2/FiO2 Ratio ABG HCO3 ABG O2 Saturation ABG O2 Content ABG Base Excess A-a Gradient Oxyhemoglobin Carboxyhemoglobin Methemoglobin Reduced Hemoglobin Total Hemoglobin O2 Delivery Device O2 Liters/Min Minute Volume Vent Rate Vent Mode FiO2 Tidal Volume PEEP Peak Inspir Pressure Pressure Support Sodium 149 H Potassium Chloride Carbon Dioxide Anion Gap BUN Creatinine Estim Creat Clear Calc Estimated GFR Glucose POC Capillary Glucose 179 H Serum Osmolality Cancelled Calcium Phosphorus Magnesium Total Bilirubin AST ALT Alkaline Phosphatase Total Protein Albumin Vancomycin Trough 02/21/25 02/21/25 02/21/25 16:44 16:44 16:44 WBC RBC Hgb Hct MCV MCH MCHC RDW Plt Count MPV Immature Gran % (Auto) Neut % (Auto) Lymph % (Auto) [place] % (Auto) Eos % (Auto) Baso % (Auto) Lymph # (Auto) [place] # (Auto) Eos # (Auto) Baso # (Auto) Abs Immat Gran (auto) Absolute Neuts (auto) Absolute Nucleated RBC Nucleated RBC % Puncture Site ABG pH ABG pCO2 ABG pO2 ABG PO2/FiO2 Ratio ABG HCO3 ABG O2 Saturation ABG O2 Content ABG Base Excess A-a Gradient Oxyhemoglobin Carboxyhemoglobin Methemoglobin Reduced Hemoglobin Total Hemoglobin O2 Delivery Device O2 Liters/Min Minute Volume Vent Rate Vent Mode FiO2 Tidal Volume PEEP Peak Inspir Pressure Pressure Support Sodium Cancelled Potassium 3.7 Cancelled Chloride 120 H Cancelled Carbon Dioxide 22 Anion Gap BUN Creatinine Estim Creat Clear Calc Estimated GFR Glucose POC Capillary Glucose Serum Osmolality Calcium Phosphorus Magnesium Total Bilirubin AST ALT Alkaline Phosphatase Total Protein Albumin Vancomycin Trough 02/21/25 02/21/25 02/21/25 16:44 16:44 16:44 WBC RBC Hgb Hct MCV MCH MCHC RDW Plt Count MPV Immature Gran % (Auto) Neut % (Auto) Lymph % (Auto) [place] % (Auto) Eos % (Auto) Baso % (Auto) Lymph # (Auto) [place] # (Auto) Eos # (Auto) Baso # (Auto) Abs Immat Gran (auto) Absolute Neuts (auto) Absolute Nucleated RBC Nucleated RBC % Puncture Site ABG pH ABG pCO2 ABG pO2 ABG PO2/FiO2 Ratio ABG HCO3 ABG O2 Saturation ABG O2 Content ABG Base Excess A-a Gradient Oxyhemoglobin Carboxyhemoglobin Methemoglobin Reduced Hemoglobin Total Hemoglobin O2 Delivery Device O2 Liters/Min Minute Volume Vent Rate Vent Mode FiO2 Tidal Volume PEEP Peak Inspir Pressure Pressure Support Sodium Potassium Chloride Carbon Dioxide Cancelled Anion Gap 7 Cancelled BUN 16 Cancelled Creatinine 0.33 L Estim Creat Clear Calc Estimated GFR Glucose POC Capillary Glucose Serum Osmolality Calcium Phosphorus Magnesium Total Bilirubin AST ALT Alkaline Phosphatase Total Protein Albumin Vancomycin Trough 02/21/25 02/21/25 02/21/25 16:44 16:44 16:44 WBC RBC Hgb Hct MCV MCH MCHC RDW Plt Count MPV Immature Gran % (Auto) Neut % (Auto) Lymph % (Auto) [place] % (Auto) Eos % (Auto) Baso % (Auto) Lymph # (Auto) [place] # (Auto) Eos # (Auto) Baso # (Auto) Abs Immat Gran (auto) Absolute Neuts (auto) Absolute Nucleated RBC Nucleated RBC % Puncture Site ABG pH ABG pCO2 ABG pO2 ABG PO2/FiO2 Ratio ABG HCO3 ABG O2 Saturation ABG O2 Content ABG Base Excess A-a Gradient Oxyhemoglobin Carboxyhemoglobin Methemoglobin Reduced Hemoglobin Total Hemoglobin O2 Delivery Device O2 Liters/Min Minute Volume Vent Rate Vent Mode FiO2 Tidal Volume PEEP Peak Inspir Pressure Pressure Support Sodium Potassium Chloride Carbon Dioxide Anion Gap BUN Creatinine Cancelled Estim Creat Clear Calc 161 Cancelled Estimated GFR > 60 Cancelled Glucose 175 H POC Capillary Glucose Serum Osmolality Calcium Phosphorus Magnesium Total Bilirubin AST ALT Alkaline Phosphatase Total Protein Albumin Vancomycin Trough 02/21/25 02/21/25 02/21/25 16:44 16:44 16:44 WBC RBC Hgb Hct MCV MCH MCHC RDW Plt Count MPV Immature Gran % (Auto) Neut % (Auto) Lymph % (Auto) [place] % (Auto) Eos % (Auto) Baso % (Auto) Lymph # (Auto) [place] # (Auto) Eos # (Auto) Baso # (Auto) Abs Immat Gran (auto) Absolute Neuts (auto) Absolute Nucleated RBC Nucleated RBC % Puncture Site ABG pH ABG pCO2 ABG pO2 ABG PO2/FiO2 Ratio ABG HCO3 ABG O2 Saturation ABG O2 Content ABG Base Excess A-a Gradient Oxyhemoglobin Carboxyhemoglobin Methemoglobin Reduced Hemoglobin Total Hemoglobin O2 Delivery Device O2 Liters/Min Minute Volume Vent Rate Vent Mode FiO2 Tidal Volume PEEP Peak Inspir Pressure Pressure Support Sodium Potassium Chloride Carbon Dioxide Anion Gap BUN Creatinine Estim Creat Clear Calc Estimated GFR Glucose Cancelled POC Capillary Glucose Serum Osmolality Calcium 8.5 Cancelled Phosphorus 2.1 L Cancelled Magnesium 2.0 Total Bilirubin AST ALT Alkaline Phosphatase Total Protein Albumin 2.8 L Vancomycin Trough 02/21/25 02/21/25 02/22/25 20:25 22:59 05:03 WBC RBC Hgb Hct MCV MCH MCHC RDW Plt Count MPV Immature Gran % (Auto) Neut % (Auto) Lymph % (Auto) [place] % (Auto) Eos % (Auto) Baso % (Auto) Lymph # (Auto) [place] # (Auto) Eos # (Auto) Baso # (Auto) Abs Immat Gran (auto) Absolute Neuts (auto) Absolute Nucleated RBC Nucleated RBC % Puncture Site Right brachial ABG pH 7.496 H ABG pCO2 24.7 L ABG pO2 126.2 H ABG PO2/FiO2 Ratio 3.15 ABG HCO3 18.7 L ABG O2 Saturation 98.8 ABG O2 Content 13.9 L ABG Base Excess -3.5 A-a Gradient 130.6 Oxyhemoglobin 98.3 Carboxyhemoglobin 0.3 Methemoglobin 0.0 Reduced Hemoglobin 1.4 Total Hemoglobin 9.9 L O2 Delivery Device Ventilator O2 Liters/Min Not Reportable Minute Volume Not Reportable Vent Rate 24 Vent Mode Cmv FiO2 40 Tidal Volume 450 PEEP 10 Peak Inspir Pressure Not Reportable Pressure Support Not Reportable Sodium Potassium Chloride Carbon Dioxide Anion Gap BUN Creatinine Estim Creat Clear Calc Estimated GFR Glucose POC Capillary Glucose 162 H Serum Osmolality Calcium Phosphorus Magnesium Total Bilirubin AST ALT Alkaline Phosphatase Total Protein Albumin Vancomycin Trough 15.2 02/22/25 02/22/25 06:21 07:07 WBC 9.2 RBC 3.46 L Hgb 9.2 L Hct 28.0 L MCV 80.9 MCH 26.6 MCHC 32.9 RDW 17.2 H Plt Count 146 L MPV 9.4 Immature Gran % (Auto) 2.3 H Neut % (Auto) 83.6 H Lymph % (Auto) 6.7 L [place] % (Auto) 6.5 Eos % (Auto) 0.4 Baso % (Auto) 0.5 Lymph # (Auto) 0.62 L [place] # (Auto) 0.6 Eos # (Auto) 0.0 Baso # (Auto) 0.1 Abs Immat Gran (auto) 0.21 H Absolute Neuts (auto) 7.7 H Absolute Nucleated RBC 0.040 H Nucleated RBC % 0.4 H Puncture Site ABG pH ABG pCO2 ABG pO2 ABG PO2/FiO2 Ratio ABG HCO3 ABG O2 Saturation ABG O2 Content ABG Base Excess A-a Gradient Oxyhemoglobin Carboxyhemoglobin Methemoglobin Reduced Hemoglobin Total Hemoglobin O2 Delivery Device O2 Liters/Min Minute Volume Vent Rate Vent Mode FiO2 Tidal Volume PEEP Peak Inspir Pressure Pressure Support Sodium 145 Potassium 3.5 Chloride 115 H Carbon Dioxide 22 Anion Gap 8 BUN 13 Creatinine 0.32 L Estim Creat Clear Calc 168 Estimated GFR > 60 Glucose 162 H POC Capillary Glucose 172 H Serum Osmolality Calcium 8.4 Phosphorus 2.3 L Magnesium 1.8 Total Bilirubin 0.7 AST 93 H ALT 154 H Alkaline Phosphatase 275 H Total Protein 5.8 L Albumin 2.7 L Vancomycin Trough
[2025-02-22] MEDS: ACETAMINOPHEN 325 MG TABLET 650 MG FEED TUBE (17:37)
[2025-02-22 17:55] LABS: Anion Gap 10 mmol/L (4-12); Blood Urea Nitrogen 15 mg/dL (9-20); Calcium 8.1 mg/dL (8.4-10.2); Carbon Dioxide 19 mmol/L (22-30); Chloride 116 mmol/L (98-107); Estimated CRCL calculation 145 ml/min; Estimated Glomerular Filt Rate > 60; Glucose 189 mg/dL (65-110); Potassium 4.0 mmol/L (3.4-5.0); Sodium 145 mmol/L (137-145)
[2025-02-22] MEDS: SENNA/DOCUSATE SODIUM TABLET 1 TAB FEED TUBE (20:26)
[2025-02-22] MEDS: dexmedeTOMIDine 400 MCG/100 ML 400 MCG/100 ML BAG 13.14 MCG IV CONT (22:36)
[2025-02-23] VITALS (27 sets, daily range): BP systolic 87–127; BP diastolic 54–86; PULSE 74–99; RESP 16–31; TEMP 36.8–37.9; O2SAT 25–99
[2025-02-23 04:09] LABS: Hematocrit 25.5 % (42.0-52.0); Hemoglobin 8.2 g/dL (14.0-18.0); Immature Granulocyte Percent A 1.8 % (0-0.5); Lymphocytes Absolute Auto 0.75 K/mm3 (0.9-3.2); Mean Corpuscular HGB Conc 32.2 g/dl (32-36); Mean Corpuscular Hemoglobin 26.3 pg (26-34); Mean Corpuscular Volume 81.7 fl (80-100); Nucleated Red Blood Cells Absolute Auto 0.030 K/mm3 (0.0-0.012); Nucleated Red Blood Cells Perc 0.3 % (0.0-0.2); Platelet Count Result 116 k/mm3 (150-375); Red Blood Count 3.12 M/mm3 (4.6-6.20); White Blood Count 9.0 K/mm3 (4.5-10.0)
[2025-02-23 04:21] LABS: Alanine Aminotransferase 117 U/L (6-50); Albumin Level 2.2 g/dL (3.5-5.1); Alkaline Phosphatase 195 U/L (38-126); Anion Gap 8 mmol/L (4-12); Aspartate Amino Transferase 45 U/L (17-59); Bilirubin,Total 0.5 mg/dL (0.2-1.3); Blood Urea Nitrogen 20 mg/dL (9-20); Calcium 8.1 mg/dL (8.4-10.2); Carbon Dioxide 20 mmol/L (22-30); Chloride 117 mmol/L (98-107); Estimated CRCL calculation 139 ml/min; Estimated Glomerular Filt Rate > 60; Glucose 194 mg/dL (65-110); Potassium 4.2 mmol/L (3.4-5.0); Sodium 145 mmol/L (137-145); Total Protein 5.0 g/dL (6.3-8.2)
[2025-02-23] MEDS: dexmedeTOMIDine 400 MCG/100 ML 400 MCG/100 ML BAG 13.14 MCG IV CONT ×3 (05:21→20:07)
[2025-02-23 05:22] LABS: Add Urine Microscopic? YES; Appearance Urine Turbid (Clear); Glucose Urine UA 2+ mg/dL (Negative); Leukocyte Esterase Ur 1+ LEU/UL (Negative); Need Manual Microscopic Reviewed; Nitrate Urine Negative (Negative); Specific Grav Ur 1.038 (1.001-1.035)
[2025-02-23] MEDS: CEFEPIME 2 GM in SODIUM CHLORIDE 0.9% IV 50 ML 100 ML IVPB ×2 (05:25→17:57)
[2025-02-23] MEDS: CENTRAL LINE FLUSH 10 ML IV PUSH ×3 (05:26→20:02)
[2025-02-23] MEDS: METOCLOPRAMIDE HCL INJ 10 MG/2 ML VIAL IV PUSH ×3 (05:26→17:55)
[2025-02-23 05:44] LABS: Alveolar/Arterial O2 Gradient 100.5 mmHg; Carboxyhemoglobin 0.2 % THb (0-2.0); Fractional Inspired Oxygen 30 %; HCO3 ABG 17.7 mEq/l (22.0-26.0); Methemoglobin ABG 0.3 %THb (0-1.5); Oxygen Content ABG 12.9 %vol (16.0-22.0); Oxygen Saturation ABG 97.2 % (95.0-100.0); PCO2 ABG 24.3 mmHg (35.0-45.0); PO2 ABG 84.9 mmHg (80.0-100.0); PO2 FiO2 Ratio Arterial Blood 2.83 %; Reduced Hemoglobin 3.9 %THb (0-5.0)
[2025-02-23 05:45] LABS: Arterial Blood Gas Ventilator rate 24 /MIN; Modified Allen's Test Pass; Site Drawn RIGHT RADIAL
[2025-02-23] MEDS: THIAMINE HCL 200 MG/2 ML VIAL 100 MG IV PUSH (09:03)
[2025-02-23] MEDS: FUROSEMIDE INJ 40 MG/4 ML VIAL IV PUSH (09:03)
[2025-02-23] MEDS: MINERAL OIL/WHITE PETROLATUM OINTMENT 1 APPLIC EACH EYE ×2 (09:04→20:01)
[2025-02-23] MEDS: FOLIC ACID 1 MG/0.2 ML INJ IV PUSH (09:04)
[2025-02-23] MEDS: PANTOPRAZOLE SODIUM IV 40 MG VIAL IV PUSH ×2 (09:04→20:01)
[2025-02-23] MEDS: MULTIVITAMINS THERAPEUTIC TAB (*BKC) 1 TABLET FEED TUBE (09:05)
--- NOTE | 2025-02-23 09:11 | P.PNINT_ITS ---
Progress Note: A&P Assessment and Plan (1) Septic shock: Code(s): A41.9 - Sepsis, unspecified organism; R65.21 - Severe sepsis with septic shock Status: Acute Assessment and Plan: 02/17: Patient presented from a senior living with altered mental status, shortness of breath. Initially had Leukocytosis. Patient did receive 2 L IV fluid bolus in the ER, was transferred to the intermediate Unit and immediately upon arrival to the IMU, rapid response was called due to hypoxia, tachypnea, tachycardia. Patient was transferred to of the ICU -likely etiology pneumonia and UTI -lactic acid normalized in patient is now off of vasopressors -adequately fluid-resuscitated in the ICU -02/17: Preliminary blood cultures are negative x2 -02/17: Urine cultures grew superficial organisms -02/18: Sputum culture growing Klebsiella friend, MRSA and Dolores tropicalis 02/17: Nasal MRSA screen was positive Continue cefepime and vancomycin (02/17), completed course of doxycycline Off IV fluids (2) Acute respiratory failure: Code(s): J96.00 - Acute respiratory failure, unspecified whether with hypoxia or hypercapnia Status: Acute Assessment and Plan: 02/17: Patient was transferred to the ICU from intermediate Unit. He was emergently intubated by ER physician likely cause multifocal pneumonia Patient is on CMV mode of ventilation, peep of 10, 40% FiO2. Decrease PEEP to 8 Chest x-ray and ABGs reviewed, Continue bronchodilators - Xopenex and Atrovent but change to p.r.n. 02/22 Patient awake and following commands but tachypneic with rate in high 30s. When I placed patient on PSV 01/28 patient's respiratory rate was up to 40s. Patient was started on Precedex infusion for anxiolysis and given Lasix 02/23 10/28 PSV done again today. RSBI borderline. Patient with increased work of breathing. Will increase pressure support and continue as long as patient tolerates. Will give another dose of Lasix today Continue daily assessment for SBT Treatment of pneumonia as above 02/17: CT chest, abdomen and pelvis IMPRESSION: 1. Moderate sized groundglass opacities scattered throughout both lungs most prominent in the lower lobes. In addition, there are small to moderate sized patchy consolidations scattered throughout both lungs most prominent in the lower lobes. The findings are concerning for multilobar pneumonia. Other etiologies are possible but are felt to be less likely. Recommend follow-up to resolution. 2.There is a Daniels catheter in the bladder. Mild concentric thickening of the calvo of the bladder. Small amount of nondependent air in the bladder which may be due to recent instrumentation or cystitis. 3. Large amount of stool in the rectum. 4. The stomach is distended and filled with air. 5. Small amount of fat stranding with a few locules of air about the posterior aspect of the mid and distal sacrum. No obvious loculated fluid collection identified. No convincing CT evidence for sacral osteomyelitis at this time. (3) Multifocal pneumonia: Code(s): J18.8 - Other pneumonia, unspecified organism Status: Acute Assessment and Plan: Multifocal pneumonia Continue treatment as above (4) Acute UTI: Code(s): N39.0 - Urinary tract infection, site not specified Status: Acute Assessment and Plan: UA was positive for UTI, -continue antibiotics as above (5) Diabetes: Code(s): E11.9 - Type 2 diabetes mellitus without complications Status: Acute Assessment and Plan: Accu-Cheks and sliding scale insulin (6) Sacral ulcer: Code(s): L98.429 - Non-pressure chronic ulcer of back with unspecified severity Status: Acute Assessment and Plan: Patient has a sacral ulcer -appreciate wound care evaluation and recommendations 02/17: CT abdomen and pelvis: Small amount of fat stranding with a few locules of air about the posterior aspect of the mid and distal sacrum. No obvious loculated fluid collection identified. No convincing CT evidence for sacral osteomyelitis at this time. (7) Metabolic acidosis: Code(s): E87.20 - Acidosis, unspecified Status: Acute Assessment and Plan: Patient with metabolic acidosis, hypernatremia, hypophosphatemia, hypokalemia -elevated beta hydroxybutyrate, urine positive for protein, glucose and ketones -most likely related to starvation ketoacidosis causing metabolic acidosis -improved (8) Severe protein-calorie malnutrition: Code(s): E43 - Unspecified severe protein-calorie malnutrition Status: Acute Assessment and Plan: According to the niece patient has lost lot of weight since August 2024, initially she stated he unable to feed himself due to his neuropathy and was not being adequately fed at the senior living, after this surgery and when he was able to move his arms he stated he was not eating well because he was not hungry. -patient's BMI is 18.3, given his height, age, gender he does classify into severe protein calorie malnutrition -appreciate dietitian evaluation recommendations -continue tube feeds. Advance to goal today -continue thiamine and folic acid. Add MVI -continue Reglan (9) Electrolyte imbalance: Code(s): E87.8 - Other disorders of electrolyte and fluid balance, not elsewhere classified Status: Acute Assessment and Plan: Hypernatremia improved. Will discontinue D5 water. Continue free water flushes Other electrolytes also improved after placement Nephrology following (10) Constipation: Code(s): K59.00 - Constipation, unspecified Status: Acute Assessment and Plan: Large amount of stool in the rectal vault as seen on the CT scan of the abdomen and pelvis -patient has not had a bowel movement -02/20: Soapsuds enema was given without much improved -patient was given lactulose enema -continue MiraLax and senna S Plan DVT prophylaxis: Heparin subQ Stress ulcer prophylaxis: Protonix Nutrition: Advance tube feeds to goal Code Status: Full code Critical Care Time Spent: 30 minutes Due to a high probability of clinically significant, life threatening deterioration, the patient required my highest level of preparedness to intervene emergently and I personally spent this critical care time directly and personally managing the patient. This critical care time included obtaining a history; examining the patient; pulse oximetry; ordering and review of studies; arranging urgent treatment with development of a management plan; evaluation of patient's response to treatment; frequent reassessment; and discussions with other providers. It was exclusive of separately billable procedures and treating other patients and teaching time. Please see Assessment and Plan section and the rest of the note for further information on patient assessment and treatment This dictation may have been done utilizing a voice recognition system. Attempts have been made to correct errors. However, there may be uncorrected grammatical, spelling, and recognitions errors present. Subjective Date/time seen: 02/23/25 Overnight events reviewed. Low-grade fever overnight Continues to be on mechanical ventilation 30% FiO2 and 8 of PEEP Was hold urine output Continues to be sedated with Precedex Tolerating tube feeds. One bowel movement. Vitals acceptable Review of Systems Review of Systems: ROS unobtainable: Yes unobtainable due to endotracheal tube, unobtainable due to medical condition and unobtainable due to mental status Exam Narrative: General: intubated and sedated, in no acute distress HEENT:? Pupils equal and reactive, sclera is clear, ETT in place Neck:? Supple Respiratory:? Coarse breath sounds bilaterally, decreased at bases, no wheezing, adequate air entry Cardiac:? S1-S2 is normal, sinus tachycardia Abdomen:? Scaphoid abdomen, soft, nontender, hypoactive bowel sounds, patient cachectic and malnourished, patient has a sacral decubitus ulcer Extremities:? No edema, decreased pedal pulses Neuro:? Patient is intubated, off sedation, opens his eyes to name and follows simple commands with all 4 extremities, PERRL Skin:? old healing ulcers on the feet bilaterally Psych:? Unable to assess at this time Objective Data Vital Signs Vital Signs: Vital Signs - 24 hr 02/22/25 10:00 02/22/25 10:00 02/22/25 10:00 Temperature 36.6 C Pulse Rate 105 H 114 H 117 H Respiratory Rate 26 H 31 H Blood Pressure 111/80 Pulse Oximetry 99 Oxygen Delivery Fraction of Inspired Oxygen 02/22/25 10:38 02/22/25 12:00 02/22/25 12:00 Temperature 36.5 C Pulse Rate 94 101 H Respiratory Rate 26 H Blood Pressure 98/79 L Pulse Oximetry 100 98 Oxygen Delivery Mechanical Ventilation Fraction of Inspired Oxygen 30 30 02/22/25 12:00 02/22/25 12:00 02/22/25 14:00 Temperature 36.5 C Pulse Rate 97 95 101 H Respiratory Rate 28 H 25 H Blood Pressure 122/75 Pulse Oximetry 98 Oxygen Delivery Fraction of Inspired Oxygen 02/22/25 14:00 02/22/25 14:00 02/22/25 14:03 Temperature Pulse Rate 98 104 H 94 Respiratory Rate 26 H Blood Pressure Pulse Oximetry 100 Oxygen Delivery Mechanical Ventilation Fraction of Inspired Oxygen 30 02/22/25 15:14 02/22/25 15:14 02/22/25 16:00 Temperature Pulse Rate 95 95 Respiratory Rate 30 H 30 H Blood Pressure Pulse Oximetry Oxygen Delivery Fraction of Inspired Oxygen 30 02/22/25 16:00 02/22/25 16:00 02/22/25 16:36 Temperature 36.9 C Pulse Rate 99 99 110 H Respiratory Rate 23 H 28 H Blood Pressure 103/64 Pulse Oximetry 98 Oxygen Delivery Fraction of Inspired Oxygen 02/22/25 17:16 02/22/25 18:00 02/22/25 18:00 Temperature Pulse Rate 94 105 H 89 Respiratory Rate 22 H Blood Pressure 105/57 L Pulse Oximetry 98 99 Oxygen Delivery Mechanical Ventilation Fraction of Inspired Oxygen 30 02/22/25 18:00 02/22/25 19:58 02/22/25 20:00 Temperature Pulse Rate 89 87 Respiratory Rate 27 H Blood Pressure Pulse Oximetry 97 99 Oxygen Delivery Mechanical Ventilation Mechanical Ventilation Fraction of Inspired Oxygen 30 30 02/22/25 20:00 02/22/25 20:00 02/22/25 20:00 Temperature Pulse Rate 84 89 Respiratory Rate 23 H Blood Pressure Pulse Oximetry Oxygen Delivery Fraction of Inspired Oxygen 30 02/22/25 20:00 02/22/25 22:00 02/22/25 22:00 Temperature 37.7 C H Pulse Rate 89 85 85 Respiratory Rate 26 H 22 H Blood Pressure 99/64 L 100/65 Pulse Oximetry 88 L 99 Oxygen Delivery Fraction of Inspired Oxygen 02/22/25 22:02 02/22/25 22:36 02/22/25 22:36 Temperature Pulse Rate 84 83 83 Respiratory Rate 29 H 22 H 22 H Blood Pressure Pulse Oximetry Oxygen Delivery Fraction of Inspired Oxygen 02/22/25 22:49 02/23/25 00:00 02/23/25 00:00 Temperature Pulse Rate 84 Respiratory Rate Blood Pressure Pulse Oximetry 97 97 Oxygen Delivery Mechanical Ventilation Mechanical Ventilation Fraction of Inspired Oxygen 30 30 30 02/23/25 00:00 02/23/25 00:00 02/23/25 00:00 Temperature 37.7 C H Pulse Rate 84 84 82 Respiratory Rate 16 20 Blood Pressure 112/69 Pulse Oximetry 99 Oxygen Delivery Fraction of Inspired Oxygen 02/23/25 01:38 02/23/25 02:00 02/23/25 02:00 Temperature Pulse Rate 79 78 99 Respiratory Rate 24 H Blood Pressure Pulse Oximetry 98 Oxygen Delivery Mechanical Ventilation Fraction of Inspired Oxygen 30 02/23/25 02:00 02/23/25 04:00 02/23/25 04:00 Temperature Pulse Rate 80 78 Respiratory Rate 18 26 H Blood Pressure 100/65 Pulse Oximetry 98 98 Oxygen Delivery Mechanical Ventilation Fraction of Inspired Oxygen 30 02/23/25 04:00 02/23/25 04:00 02/23/25 04:00 Temperature 37.7 C H Pulse Rate 78 78 Respiratory Rate 25 H Blood Pressure 97/63 L Pulse Oximetry 98 Oxygen Delivery Fraction of Inspired Oxygen 30 02/23/25 05:17 02/23/25 05:21 02/23/25 05:21 Temperature Pulse Rate 77 84 85 Respiratory Rate 29 H 28 H Blood Pressure Pulse Oximetry 98 Oxygen Delivery Mechanical Ventilation Fraction of Inspired Oxygen 30 02/23/25 06:00 02/23/25 06:00 02/23/25 06:03 Temperature 37.1 C Pulse Rate 87 84 85 Respiratory Rate 26 H 24 H Blood Pressure 127/86 Pulse Oximetry 96 Oxygen Delivery Fraction of Inspired Oxygen 02/23/25 08:00 02/23/25 08:06 02/23/25 08:08 Temperature 36.8 C Pulse Rate 91 87 91 Respiratory Rate 31 H Blood Pressure 110/71 Pulse Oximetry 98 98 97 Oxygen Delivery Mechanical Ventilation Mechanical Ventilation Fraction of Inspired Oxygen 30 30 Intake/Output Intake/Output: Intake & Output 02/20/25 02/21/25 02/22/25 02/23/25 23:59 23:59 23:59 23:59 Intake Total 3881.1 4762.2 3963.3 1514.9 Output Total 1600 2450 3875 Balance 2281.1 2312.2 88.3 1514.9 Meds/Results Medications: Active Medications Generic Name Dose Route Start Last Admin Trade Name Freq PRN Reason Stop Dose Admin Acetaminophen 650 mg 02/17/25 20:19 02/22/25 17:37 Acetaminophen 325 Mg Tablet FEED TUBE 650 mg Q4H PRN Administration Mild Pain (1-3) or Fever Alteplase, Recombinant 2 mg 02/21/25 22:45 02/21/25 23:00 Alteplase 2 Mg Vial (Cathflo) IV PUSH 2 mg ONCE PRN Administration Line Occlusion Bisacodyl 10 mg 02/20/25 11:01 Bisacodyl 10 Mg Suppository RECTAL QAM PRN Constipation Dextrose 12.5 gm 02/17/25 21:35 Dextrose 50% 25 Gm/50 Ml Syringe IV PUSH PRN PRN Hypoglycemia Protocol Folic Acid 1 mg 02/19/25 09:00 02/23/25 09:04 Folic Acid 1 Mg/0.2 Ml Inj IV PUSH 1 mg QAM KENNETH Administration Glucagon 1 mg 02/17/25 21:35 Glucagon For Inj 1 Mg Vial IM PRN PRN Hypoglycemia Protocol Glucose 15 gm 02/17/25 21:35 Glucose Oral Gel 15 Gm Of Glucse In 37.5 Gm Tube PO PRN PRN Hypoglycemia Protocol Heparin Sodium (Porcine) 5,000 units 02/18/25 14:00 02/23/25 05:25 Heparin Sodium 5,000 Units/Ml Vial SUB-Q 5,000 units Q8HR KENNETH Administration Hydralazine HCl 10 mg 02/21/25 19:36 02/22/25 00:00 Hydralazine Hcl 20 Mg/Ml Vial IV PUSH 10 mg Q6H PRN Administration Blood Pressure - High Cefepime HCl 2 gm/ Sodium 50 mls @ 100 mls/hr 02/18/25 06:00 02/23/25 05:55 Chloride IVPB Infused Q12H KENNETH Infusion Dextrose 1,000 mls @ 100 mls/hr 02/17/25 21:35 Dextrose 5% 1,000 Ml IVPB PRN PRN Hypoglycemia Protocol Vancomycin HCl 2,000 mg in 500 mls @ 250 mls/hr 02/22/25 00:00 02/23/25 01:31 Vancomycin 2,000 Mg/Ns 500 Ml IVPB Infused Q12H KENNETH Infusion Dexmedetomidine HCl 400 mcg in 100 mls @ 13.14 mls/hr 02/22/25 07:40 02/23/25 06:03 Precedex 400 Mcg/100 Ml IV CONT 0.8 mcg/kg/hr .Q7H37M KENNETH 13.14 mls/hr Protocol Titration 0.8 MCG/KG/HR Insulin Aspart 3 - 6 units 02/18/25 00:00 02/23/25 08:54 Insulin Aspart (*Bkc) 100 Units/Ml SUB-Q Not Given Q4HR EKNNETH Protocol Ipratropium Sheridan 0.5 mg 02/22/25 07:33 Ipratropium Br 0.02% Inh Soln 0.5 Mg/2.5 Ml Vial INHALATION Q6HRT PRN Wheezing Levalbuterol HCl 0.63 mg 02/22/25 07:33 Levalbuterol Neb 1.25 Mg/3 Ml INHALATION Q6HRT PRN Wheezing Metoclopramide HCl 10 mg 02/19/25 12:00 02/23/25 05:26 Metoclopramide Hcl Inj 10 Mg/2 Ml Vial IV PUSH 10 mg Q6HR KENNETH Administration Multi-Ingred Cream/Lotion/Oil/Oint 1 applic 02/17/25 21:00 02/23/25 09:04 Mineral Oil/White Petrolatum Ointment EACH EYE 1 applic Q12HR KENNETH Administration Multivitamins Therapeutic 1 tablet 02/23/25 10:00 02/23/25 09:05 Multivitamins Therapeutic Tab (*Bkc) FEED TUBE 1 tablet QAM KENNETH Administration Pantoprazole Sodium 40 mg 02/18/25 09:00 02/23/25 09:04 Pantoprazole Sodium Iv 40 Mg Vial IV PUSH 40 mg Q12HR KENNETH Administration Polyethylene Glycol 17 gm 02/21/25 09:00 02/23/25 09:09 Polyethylene Glycol 3350 17 Gm Powd.Pack PO 17 gm QAM KENNETH Administration Senna/Docusate Sodium 1 tab 02/17/25 21:00 02/22/25 20:26 Senna/Docusate Sodium Tablet FEED TUBE 1 tab HS KENNETH Administration Sodium Chloride 10 ml 02/18/25 22:00 02/23/25 05:26 Central Line Flush IV PUSH 10 ml Q8HR KENNETH Administration Sodium Chloride 20 ml 02/18/25 16:07 02/20/25 05:33 Central Line Flush IV PUSH 20 ml PRN PRN Administration after blood draws Thiamine HCl 100 mg 02/19/25 09:00 02/23/25 09:03 Thiamine Hcl 200 Mg/2 Ml Vial IV PUSH 100 mg QAM KENNETH Administration Radiology Results: ITS Impressions Head CT 02/17/25 16:55 IMPRESSION: 1. No acute intracranial hemorrhage. No mass effect. 2. Probable chronic ischemic white matter change. Chest/Abdomen/Pelvis CT 02/17/25 17:11 IMPRESSION: 1. Moderate sized groundglass opacities scattered throughout both lungs most prominent in the lower lobes. In addition, there are small to moderate sized patchy consolidations scattered throughout both lungs most prominent in the lower lobes. The findings are concerning for multilobar pneumonia. Other etiologies are possible but are felt to be less likely. Recommend follow-up to resolution. 2.There is a Daniels catheter in the bladder. Mild concentric thickening of the calvo of the bladder. Small amount of nondependent air in the bladder which may be due to recent instrumentation or cystitis. 3. Large amount of stool in the rectum. 4. The stomach is distended and filled with air. 5. Small amount of fat stranding with a few locules of air about the posterior aspect of the mid and distal sacrum. No obvious loculated fluid collection identified. No convincing CT evidence for sacral osteomyelitis at this time. Abdomen Ultrasound 02/19/25 13:00 Impression: Limited study. No acute process Abdomen X-Ray 02/20/25 10:54 IMPRESSION: 1. No acute abdominal abnormality. 2: Bibasilar infiltrates may represent edema or pneumonia. Renal Ultrasound 02/20/25 17:18 IMPRESSION: 1. Normal kidneys without hydronephrosis. 2. Diffuse trabeculated bladder wall thickening suggestive of sequela of chronic outlet obstruction. Chest X-Ray 02/22/25 07:28 IMPRESSION: 1. Slight decrease in opacities in the bilateral lower lung zones, left greater than right, which could represent improving pneumonia and/or atelectasis. Labs Labs: Laboratory Results - last 24 hr 02/20/25 02/22/25 02/22/25 11:20 16:23 17:36 WBC RBC Hgb Hct MCV MCH MCHC RDW Plt Count MPV Immature Gran % (Auto) Neut % (Auto) Lymph % (Auto) Lipscomb % (Auto) Eos % (Auto) Baso % (Auto) Lymph # (Auto) Lipscomb # (Auto) Eos # (Auto) Baso # (Auto) Abs Immat Gran (auto) Absolute Neuts (auto) Absolute Nucleated RBC Nucleated RBC % Puncture Site ABG pH ABG pCO2 ABG pO2 ABG PO2/FiO2 Ratio ABG HCO3 ABG O2 Saturation ABG O2 Content ABG Base Excess A-a Gradient Oxyhemoglobin Carboxyhemoglobin Methemoglobin Reduced Hemoglobin Total Hemoglobin O2 Delivery Device O2 Liters/Min Vent Rate Vent Mode FiO2 PEEP Peak Inspir Pressure Sodium 145 Potassium 4.0 Chloride 116 H Carbon Dioxide 19 L Anion Gap 10 BUN 15 Creatinine 0.38 L Estim Creat Clear Calc 145 Estimated GFR > 60 Glucose 189 H POC Capillary Glucose 175 H Serum Osmolality Cancelled Calcium 8.1 L Total Bilirubin AST ALT Alkaline Phosphatase Total Protein Albumin Urine Color Urine Appearance Urine pH Ur Specific Goodman Urine Protein Urine Glucose (UA) Urine Ketones Ur Blood (Man) Urine Nitrate Urine Bilirubin Urine Urobilinogen Ur Leukocyte Esterase Add Ur Microanalysis Urine RBC Urine WBC Ur Squamous Epith Cells Urine Bacteria Urine Casts 02/22/25 02/22/25 02/23/25 20:31 23:27 04:03 WBC 9.0 RBC 3.12 L Hgb 8.2 L Hct 25.5 L MCV 81.7 MCH 26.3 MCHC 32.2 RDW 17.2 H Plt Count 116 L MPV 9.8 Immature Gran % (Auto) 1.8 H Neut % (Auto) 82.6 H Lymph % (Auto) 8.4 L Lipscomb % (Auto) 6.8 Eos % (Auto) 0.1 Baso % (Auto) 0.3 Lymph # (Auto) 0.75 L Lipscomb # (Auto) 0.6 Eos # (Auto) 0.0 Baso # (Auto) 0.0 Abs Immat Gran (auto) 0.16 H Absolute Neuts (auto) 7.4 H Absolute Nucleated RBC 0.030 H Nucleated RBC % 0.3 H Puncture Site ABG pH ABG pCO2 ABG pO2 ABG PO2/FiO2 Ratio ABG HCO3 ABG O2 Saturation ABG O2 Content ABG Base Excess A-a Gradient Oxyhemoglobin Carboxyhemoglobin Methemoglobin Reduced Hemoglobin Total Hemoglobin O2 Delivery Device O2 Liters/Min Vent Rate Vent Mode FiO2 PEEP Peak Inspir Pressure Sodium 145 Potassium 4.2 Chloride 117 H Carbon Dioxide 20 L Anion Gap 8 BUN 20 Creatinine 0.40 L Estim Creat Clear Calc 139 Estimated GFR > 60 Glucose 194 H POC Capillary Glucose 179 H 172 H Serum Osmolality Calcium 8.1 L Total Bilirubin 0.5 AST 45 ALT 117 H Alkaline Phosphatase 195 H Total Protein 5.0 L Albumin 2.2 L Urine Color Urine Appearance Urine pH Ur Specific Goodman Urine Protein Urine Glucose (UA) Urine Ketones Ur Blood (Man) Urine Nitrate Urine Bilirubin Urine Urobilinogen Ur Leukocyte Esterase Add Ur Microanalysis Urine RBC Urine WBC Ur Squamous Epith Cells Urine Bacteria Urine Casts 02/23/25 02/23/25 02/23/25 04:40 05:24 07:39 WBC RBC Hgb Hct MCV MCH MCHC RDW Plt Count MPV Immature Gran % (Auto) Neut % (Auto) Lymph % (Auto) Lipscomb % (Auto) Eos % (Auto) Baso % (Auto) Lymph # (Auto) Lipscomb # (Auto) Eos # (Auto) Baso # (Auto) Abs Immat Gran (auto) Absolute Neuts (auto) Absolute Nucleated RBC Nucleated RBC % Puncture Site Right radial ABG pH 7.480 H ABG pCO2 24.3 L ABG pO2 84.9 ABG PO2/FiO2 Ratio 2.83 ABG HCO3 17.7 L ABG O2 Saturation 97.2 ABG O2 Content 12.9 L ABG Base Excess -4.7 A-a Gradient 100.5 Oxyhemoglobin 95.6 Carboxyhemoglobin 0.2 Methemoglobin 0.3 Reduced Hemoglobin 3.9 Total Hemoglobin 9.5 L O2 Delivery Device Ventilator O2 Liters/Min Not Reportable Vent Rate 24 Vent Mode Cmv FiO2 30 PEEP 8 Peak Inspir Pressure Not Reportable Sodium Potassium Chloride Carbon Dioxide Anion Gap BUN Creatinine Estim Creat Clear Calc Estimated GFR Glucose POC Capillary Glucose 164 H Serum Osmolality Calcium Total Bilirubin AST ALT Alkaline Phosphatase Total Protein Albumin Urine Color Yellow Urine Appearance Turbid H Urine pH 6.5 Ur Specific Goodman 1.038 H Urine Protein 1+ H Urine Glucose (UA) 2+ H Urine Ketones 3+ H Ur Blood (Man) Non-hemolyzed trace Urine Nitrate Negative Urine Bilirubin Negative Urine Urobilinogen 1.0 Ur Leukocyte Esterase 1+ H Add Ur Microanalysis Reviewed Urine RBC 11-20 H Urine WBC 0-5 Ur Squamous Epith Cells None seen Urine Bacteria Trace Urine Casts 3-5 Quality VTE Prophylaxis VTE prophylaxis: pharmacologic ordered
[2025-02-23] MEDS: VANCOMYCIN 2,000 MG/NS 500 ML 2,000 MG/500 ML BAG 250 MG IVPB (11:27)
--- NOTE | 2025-02-23 11:55 | P.PNNP_ITS ---
Progress Note: A&P Assessment and Plan (1) Metabolic acidosis: Code(s): E87.20 - Acidosis, unspecified Status: Acute Assessment and Plan: * due to a combination of lactic acidosis and starvation ketoacidosis * slow and steady improvement noted * continue current therapy (2) Hypernatremia: Code(s): E87.0 - Hyperosmolality and hypernatremia Status: Acute Assessment and Plan: * slow improvement noted * due to free water deficit * improvement noted with D5W IVFs * discontinued today * use D5W IVFs as needed * continue free water flushes and titrate as needed (3) Electrolyte imbalance: Code(s): E87.8 - Other disorders of electrolyte and fluid balance, not elsewhere classified Status: Acute Assessment and Plan: * noted issues with hypokalemia and hypophosphatemia... * probably related to poor oral intake with a component of re-feeding syndrome * overall, continue to slowly improve * replete as needed * follow magnesium as well (4) Septic shock: Code(s): A41.9 - Sepsis, unspecified organism; R65.21 - Severe sepsis with septic shock Status: Acute Assessment and Plan: * as noted on presentation - AMS, tachypnea, hypoxia, leukocytosis and subsequent hypotension * suspect secondary to pneumonia and possible UTI * s/p IVF resuscitation * was on vasopressor therapy but has since been weaned off * culture data noted: * blood culture negative to date * urine culture with superficial organisms * sputum culture with Klebsiella, MRSA, and Dolores tropicalis * on antibiotics * follow hemodynamics (5) Acute respiratory failure: Code(s): J96.00 - Acute respiratory failure, unspecified whether with hypoxia or hypercapnia Status: Acute Assessment and Plan: * presumable due to pneumonia and sepsis * intubated on 02/17 * gentle diuresis as tolerated * on antibiotics for pneumonia * ventilator weaning as tolerated (6) Anemia: Code(s): D64.9 - Anemia, unspecified Status: Acute Assessment and Plan: * likely secondary to acute illness * follow trend of H/H * PRBC transfusion per protocol (7) Severe protein-calorie malnutrition: Code(s): E43 - Unspecified severe protein-calorie malnutrition Status: Acute Assessment and Plan: * poor oral intake/nutrion prior to admission * on tube feeds * education liaison recommendations noted * on supplemental vitamins as well (8) Diabetes: Code(s): E11.9 - Type 2 diabetes mellitus without complications Status: Acute Assessment and Plan: * follow accu-cheks * glycemic control per intensivisit/hospitalist Will continue to follow intermittently L Subjective Date/time seen: 02/23/25 11:55 Interval history: Follow-up for hypernatremia, hypokalemia, hypophosphatemia, and acidosis Remains intubated/sedated and on mechanical ventilation at the time of my visit; electrolytes and acidosis appear relatively stable at this time; low grade fevers noted overnight; tolerating tube feeds; remains hemodynamically stable. Exam 2 Narrative: General: cachectic male intubated and on mechanical ventilation Heart: normal S1 and S2; no rub Lungs: coarse breath sounds Abdomen: soft, nontender, nondistended, positive bowel sounds Extremities: no cyanosis or clubbing; no edema Skin: warm and intact Objective Data Vital Signs Vital Signs: Vital Signs Temp Pulse Resp BP Pulse Ox O2 Del Method FiO2 02/23/25 11:28 94 95 Mechanical Ventilation 02/23/25 10:00 88 24 H 02/23/25 10:00 92 98 Mechanical Ventilation 02/23/25 10:00 82 02/23/25 10:00 98.4 F 87 26 H 119/71 94 02/23/25 09:57 94 95 Mechanical Ventilation 02/23/25 09:09 Mechanical Ventilation 02/23/25 08:08 91 97 Mechanical Ventilation 02/23/25 08:06 87 98 Mechanical Ventilation 02/23/25 08:00 92 24 H 02/23/25 08:00 40 02/23/25 08:00 77 25 H 96 Mechanical Ventilation 02/23/25 08:00 98.3 F 91 31 H 110/71 98 02/23/25 06:03 85 24 H 02/23/25 06:00 98.8 F 84 26 H 127/86 96 02/23/25 06:00 87 02/23/25 05:21 85 28 H 02/23/25 05:21 84 29 H 02/23/25 05:17 77 98 Mechanical Ventilation 02/23/25 04:00 99.9 F H 78 25 H 97/63 L 98 02/23/25 04:00 78 02/23/25 04:00 30 02/23/25 04:00 98 Mechanical Ventilation 30 02/23/25 04:00 78 26 H 02/23/25 02:00 80 18 100/65 98 02/23/25 02:00 99 02/23/25 02:00 78 24 H 02/23/25 01:38 79 98 Mechanical Ventilation 02/23/25 00:00 82 20 02/23/25 00:00 99.8 F H 84 16 112/69 99 02/23/25 00:00 84 02/23/25 00:00 30 02/23/25 00:00 97 Mechanical Ventilation 02/22/25 22:49 84 97 Mechanical Ventilation 02/22/25 22:36 83 22 H 02/22/25 22:36 83 22 H 02/22/25 22:02 84 29 H 02/22/25 22:00 99.9 F H 85 22 H 100/65 99 02/22/25 22:00 85 02/22/25 20:00 89 26 H 99/64 L 88 L 02/22/25 20:00 89 02/22/25 20:00 84 23 H 02/22/25 20:00 30 02/22/25 20:00 99 Mechanical Ventilation 02/22/25 19:58 87 97 Mechanical Ventilation 02/22/25 18:00 89 27 H 02/22/25 18:00 89 22 H 105/57 L 99 02/22/25 18:00 105 H 02/22/25 17:16 94 98 Mechanical Ventilation 02/22/25 16:36 110 H 28 H Intake/Output Intake/Output: Intake & Output 02/20/25 02/21/25 02/22/25 02/23/25 23:59 23:59 23:59 23:59 Intake Total 3881.1 4762.2 3963.3 1602.1 Output Total 1600 2450 3875 1200 Balance 2281.1 2312.2 88.3 402.1 Meds/Results Medications: Active Medications Generic Name Dose Route Start Last Admin Trade Name Freq PRN Reason Stop Dose Admin Acetaminophen 650 mg 02/17/25 20:19 02/22/25 17:37 Acetaminophen 325 Mg Tablet FEED TUBE 650 mg Q4H PRN Administration Mild Pain (1-3) or Fever Alteplase, Recombinant 2 mg 02/21/25 22:45 02/21/25 23:00 Alteplase 2 Mg Vial (Cathflo) IV PUSH 2 mg ONCE PRN Administration Line Occlusion Bisacodyl 10 mg 02/20/25 11:01 Bisacodyl 10 Mg Suppository RECTAL QAM PRN Constipation Dextrose 12.5 gm 02/17/25 21:35 Dextrose 50% 25 Gm/50 Ml Syringe IV PUSH PRN PRN Hypoglycemia Protocol Folic Acid 1 mg 02/19/25 09:00 02/23/25 09:04 Folic Acid 1 Mg/0.2 Ml Inj IV PUSH 1 mg QAM KENNETH Administration Glucagon 1 mg 02/17/25 21:35 Glucagon For Inj 1 Mg Vial IM PRN PRN Hypoglycemia Protocol Glucose 15 gm 02/17/25 21:35 Glucose Oral Gel 15 Gm Of Glucse In 37.5 Gm Tube PO PRN PRN Hypoglycemia Protocol Heparin Sodium (Porcine) 5,000 units 02/18/25 14:00 02/23/25 15:39 Heparin Sodium 5,000 Units/Ml Vial SUB-Q 5,000 units Q8HR KENNETH Administration Hydralazine HCl 10 mg 02/21/25 19:36 02/22/25 00:00 Hydralazine Hcl 20 Mg/Ml Vial IV PUSH 10 mg Q6H PRN Administration Blood Pressure - High Cefepime HCl 2 gm/ Sodium 50 mls @ 100 mls/hr 02/18/25 06:00 02/23/25 05:55 Chloride IVPB 02/27/25 06:29 Infused Q12H KENNETH Infusion Dextrose 1,000 mls @ 100 mls/hr 02/17/25 21:35 Dextrose 5% 1,000 Ml IVPB PRN PRN Hypoglycemia Protocol Vancomycin HCl 2,000 mg in 500 mls @ 250 mls/hr 02/22/25 00:00 02/23/25 11:27 Vancomycin 2,000 Mg/Ns 500 Ml IVPB 02/26/25 23:59 250 mls/hr Q12H KENNETH Administration Dexmedetomidine HCl 400 mcg in 100 mls @ 13.14 mls/hr 02/22/25 07:40 02/23/25 12:41 Precedex 400 Mcg/100 Ml IV CONT 0.8 mcg/kg/hr .Q7H37M KENNETH 13.14 mls/hr Protocol Administration 0.8 MCG/KG/HR Insulin Aspart 3 - 6 units 02/18/25 00:00 02/23/25 12:10 Insulin Aspart (*Bkc) 100 Units/Ml SUB-Q Not Given Q4HR KENNETH Protocol Ipratropium [place] 0.5 mg 02/22/25 07:33 Ipratropium Br 0.02% Inh Soln 0.5 Mg/2.5 Ml Vial INHALATION Q6HRT PRN Wheezing Levalbuterol HCl 0.63 mg 02/22/25 07:33 Levalbuterol Neb 1.25 Mg/3 Ml INHALATION Q6HRT PRN Wheezing Metoclopramide HCl 10 mg 02/19/25 12:00 02/23/25 11:26 Metoclopramide Hcl Inj 10 Mg/2 Ml Vial IV PUSH 10 mg Q6HR KENNETH Administration Multi-Ingred Cream/Lotion/Oil/Oint 1 applic 02/17/25 21:00 02/23/25 09:04 Mineral Oil/White Petrolatum Ointment EACH EYE 1 applic Q12HR KENNETH Administration Multivitamins Therapeutic 1 tablet 02/23/25 10:00 02/23/25 09:05 Multivitamins Therapeutic Tab (*Bkc) FEED TUBE 1 tablet QAM KENNETH Administration Pantoprazole Sodium 40 mg 02/18/25 09:00 02/23/25 09:04 Pantoprazole Sodium Iv 40 Mg Vial IV PUSH 40 mg Q12HR KENNETH Administration Polyethylene Glycol 17 gm 02/21/25 09:00 02/23/25 09:09 Polyethylene Glycol 3350 17 Gm Powd.Pack PO 17 gm QAM KENNETH Administration Senna/Docusate Sodium 1 tab 02/17/25 21:00 02/22/25 20:26 Senna/Docusate Sodium Tablet FEED TUBE 1 tab HS KENNETH Administration Sodium Chloride 10 ml 02/18/25 22:00 02/23/25 14:25 Central Line Flush IV PUSH 10 ml Q8HR KENNETH Administration Sodium Chloride 20 ml 02/18/25 16:07 02/20/25 05:33 Central Line Flush IV PUSH 20 ml PRN PRN Administration after blood draws Thiamine HCl 100 mg 02/19/25 09:00 02/23/25 09:03 Thiamine Hcl 200 Mg/2 Ml Vial IV PUSH 100 mg QAM KENNETH Administration Radiology Results: ITS Impressions Head CT 02/17/25 16:55 IMPRESSION: 1. No acute intracranial hemorrhage. No mass effect. 2. Probable chronic ischemic white matter change. Chest/Abdomen/Pelvis CT 02/17/25 17:11 IMPRESSION: 1. Moderate sized groundglass opacities scattered throughout both lungs most prominent in the lower lobes. In addition, there are small to moderate sized patchy consolidations scattered throughout both lungs most prominent in the lower lobes. The findings are concerning for multilobar pneumonia. Other etiologies are possible but are felt to be less likely. Recommend follow-up to resolution. 2.There is a Daniels catheter in the bladder. Mild concentric thickening of the calvo of the bladder. Small amount of nondependent air in the bladder which may be due to recent instrumentation or cystitis. 3. Large amount of stool in the rectum. 4. The stomach is distended and filled with air. 5. Small amount of fat stranding with a few locules of air about the posterior aspect of the mid and distal sacrum. No obvious loculated fluid collection identified. No convincing CT evidence for sacral osteomyelitis at this time. Abdomen Ultrasound 02/19/25 13:00 Impression: Limited study. No acute process Abdomen X-Ray 02/20/25 10:54 IMPRESSION: 1. No acute abdominal abnormality. 2: Bibasilar infiltrates may represent edema or pneumonia. Renal Ultrasound 02/20/25 17:18 IMPRESSION: 1. Normal kidneys without hydronephrosis. 2. Diffuse trabeculated bladder wall thickening suggestive of sequela of chronic outlet obstruction. Chest X-Ray 02/22/25 07:28 IMPRESSION: 1. Slight decrease in opacities in the bilateral lower lung zones, left greater than right, which could represent improving pneumonia and/or atelectasis. Labs Labs: Laboratory Tests 02/23/25 04:03 02/23/25 04:03 Calcium 8.1 L Total Bilirubin 0.5 AST 45 ALT 117 H Alkaline Phosphatase 195 H Total Protein 5.0 L Albumin 2.2 L Microbiology 02/17/25 15:18 Blood Blood Culture - Final 02/17/25 15:18 Blood Blood Culture - Final 02/18/25 11:29 Sputum Sputum White Blood Cells - Final 02/18/25 11:29 Sputum Sputum Epithelial Cells - Final 02/18/25 11:29 Sputum Gram Stain Sputum Result 1 - Final 02/18/25 11:29 Sputum Gram Stain Sputum Result 2 - Final 02/18/25 11:29 Sputum Gram Stain Sputum Result 3 - Final 02/18/25 11:29 Sputum Gram Stain Sputum Result 4 - Final 02/18/25 11:29 Sputum Gram Stain Evaluation - Final 02/18/25 11:29 Sputum Sputum Culture - Final Klebsiella pneumoniae Methicillin Resis Staph Aureus Dolores tropicalis
--- NOTE | 2025-02-23 12:06 | PCFNICU ---
ICU Rounding Note: Pt current nutrition is Vital AF 1.2 at 30 ml/hr. Nutrition recommendation: Goal rate at 70 ml/hr. Last recorded weight is 70.7 kg, up from 56.1 kg on admit Bowel Motility: No BM reported-Senokot and Miralax started. Labs Reviewed: PO4 2.3, Alb 2.2, Glu 194, Hct 25.5, Hgb 8.2 Meds Noted: MVI, Reglan, Thiamine, Folic Acid, Miralax, Senokot, Precedex Skin: no pressure ulcers reported. Additional Notes: Patient remains on mechanical vent. Tube feeding is being tolerated of Vital AF 1.2 at 30 ml/hr. Spoke with Tubing Assembler today, plans to advance tube feedings to 50 ml/hr today. Goal rate recommended at 70 ml/hr when advancing. Flush remains at 200 ml q 4 hours. Following daily in ICU rounds. Will monitor weight, labs, skin, diet orders, meds every Friday and Friday.
[2025-02-23] MEDS: INSULIN ASPART (*BKC) 100 UNITS/ML SUB-Q ×2 (18:11→20:10)
[2025-02-23 18:24] LABS: Anion Gap 10 mmol/L (4-12); Blood Urea Nitrogen 24 mg/dL (9-20); Calcium 8.2 mg/dL (8.4-10.2); Carbon Dioxide 20 mmol/L (22-30); Chloride 117 mmol/L (98-107); Estimated CRCL calculation 140 ml/min; Estimated Glomerular Filt Rate > 60; Glucose 224 mg/dL (65-110); Potassium 3.9 mmol/L (3.4-5.0); Sodium 147 mmol/L (137-145)
[2025-02-23] MEDS: SENNA/DOCUSATE SODIUM TABLET 1 TAB FEED TUBE (20:02)
[2025-02-23] MEDS: ACETAMINOPHEN 325 MG TABLET 650 MG FEED TUBE (20:05)
[2025-02-24] VITALS (25 sets, daily range): BP systolic 94–128; BP diastolic 54–72; PULSE 79–102; RESP 19–35; TEMP 36.9–38.4; O2SAT 94–97
[2025-02-24] MEDS: VANCOMYCIN 2,000 MG/NS 500 ML 2,000 MG/500 ML BAG 250 MG IVPB ×2 (00:14→12:06)
[2025-02-24] MEDS: METOCLOPRAMIDE HCL INJ 10 MG/2 ML VIAL IV PUSH ×4 (00:16→18:13)
[2025-02-24] MEDS: dexmedeTOMIDine 400 MCG/100 ML 400 MCG/100 ML BAG 13.14 MCG IV CONT (02:56)
[2025-02-24 04:14] LABS: Hematocrit 26.4 % (42.0-52.0); Hemoglobin 8.3 g/dL (14.0-18.0); Mean Corpuscular HGB Conc 31.4 g/dl (32-36); Mean Corpuscular Hemoglobin 25.8 pg (26-34); Mean Corpuscular Volume 82.0 fl (80-100); Platelet Count Result 140 k/mm3 (150-375); Red Blood Count 3.22 M/mm3 (4.6-6.20); White Blood Count 11.3 K/mm3 (4.5-10.0)
[2025-02-24 04:39] LABS: Alanine Aminotransferase 82 U/L (6-50); Albumin Level 2.1 g/dL (3.5-5.1); Alkaline Phosphatase 196 U/L (38-126); Anion Gap 5 mmol/L (4-12); Aspartate Amino Transferase 34 U/L (17-59); Bilirubin,Total 0.4 mg/dL (0.2-1.3); Blood Urea Nitrogen 24 mg/dL (9-20); Calcium 8.0 mg/dL (8.4-10.2); Carbon Dioxide 23 mmol/L (22-30); Chloride 119 mmol/L (98-107); Estimated CRCL calculation 164 ml/min; Estimated Glomerular Filt Rate > 60; Glucose 206 mg/dL (65-110); Magnesium 1.9 mg/dL (1.6-2.3); Potassium 3.4 mmol/L (3.4-5.0); Sodium 147 mmol/L (137-145); Total Protein 4.9 g/dL (6.3-8.2)
[2025-02-24 05:12] LABS: Alveolar/Arterial O2 Gradient 105.0 mmHg; Carboxyhemoglobin 0.6 % THb (0-2.0); Fractional Inspired Oxygen 30 %; HCO3 ABG 20.8 mEq/l (22.0-26.0); Methemoglobin ABG 0.3 %THb (0-1.5); Oxygen Content ABG 12.2 %vol (16.0-22.0); Oxygen Saturation ABG 96.7 % (95.0-100.0); PCO2 ABG 26.9 mmHg (35.0-45.0); PO2 ABG 77.3 mmHg (80.0-100.0); PO2 FiO2 Ratio Arterial Blood 2.58 %; Reduced Hemoglobin 4.5 %THb (0-5.0)
[2025-02-24 05:14] LABS: Modified Allen's Test Pass; Site Drawn RIGHT RADIAL
[2025-02-24 05:15] LABS: Arterial Blood Gas Tidal Volume 420 ml; Arterial Blood Gas Ventilator rate 20 /MIN
[2025-02-24] MEDS: CEFEPIME 2 GM in SODIUM CHLORIDE 0.9% IV 50 ML 100 ML IVPB ×2 (05:58→17:56)
[2025-02-24] MEDS: CENTRAL LINE FLUSH 10 ML IV PUSH ×3 (05:58→20:21)
[2025-02-24 07:09] LABS: Osmolality, Urine 615 mOsmol/kg (.)
[2025-02-24] MEDS: POTASSIUM BICARBONATE 25 MEQ TABEF 50 MEQ FEED TUBE (07:46)
[2025-02-24] MEDS: FUROSEMIDE INJ 100 MG/10 ML VIAL 80 MG IV PUSH (07:46)
--- NOTE | 2025-02-24 08:28 | P.PNINT_ITS ---
Progress Note: A&P Assessment and Plan (1) Septic shock: Code(s): A41.9 - Sepsis, unspecified organism; R65.21 - Severe sepsis with septic shock Status: Acute Assessment and Plan: 02/17: Patient presented from a [facility] with altered mental status, shortness of breath. Initially had Leukocytosis. Patient did receive 2 L IV fluid bolus in the ER, was transferred to the intermediate Unit and immediately upon arrival to the IMU, rapid response was called due to hypoxia, tachypnea, tachycardia. Patient was transferred to of the ICU -likely etiology pneumonia and UTI -lactic acid normalized in patient is now off of vasopressors -adequately fluid-resuscitated in the ICU -02/17: Preliminary blood cultures are negative x2 -02/17: Urine cultures grew superficial organisms -02/18: Sputum culture growing Klebsiella friend, MRSA and Dolores tropicalis 02/17: Nasal MRSA screen was positive Continue cefepime and vancomycin (02/17), completed course of doxycycline Off IV fluids (2) Acute respiratory failure: Code(s): J96.00 - Acute respiratory failure, unspecified whether with hypoxia or hypercapnia Status: Acute Assessment and Plan: 02/17: Patient was transferred to the ICU from intermediate Unit. He was emergently intubated by ER physician likely cause multifocal pneumonia Patient is on CMV mode of ventilation, peep of 10, 40% FiO2. Decrease PEEP to 8 Chest x-ray and ABGs reviewed, Continue bronchodilators - Xopenex and Atrovent but change to p.r.n. / Patient awake and following commands but tachypneic with rate in high 30s. When I placed patient on PSV 01/28 patient's respiratory rate was up to 40s. Patient was started on Precedex infusion for anxiolysis and given Lasix 02/23 5/8 PSV done again today. RSBI borderline. Patient with increased work of breathing. Will increase pressure support and continue as long as patient tolerates. Will give another dose of Lasix today 02/24 PSV weaning trial was again attempted this morning. High RSBI and re spiratory rate. Patient needed pressure support of 15/8 for adequate RSBI. Will continue as tolerated. Patient appears very weak and debilitated. Weaning is going to be difficult and long. Patient may very well need tracheostomy. Will continue working with him daily Continue daily assessment for SBT Treatment of pneumonia as above 02/17: CT chest, abdomen and pelvis IMPRESSION: 1. Moderate sized groundglass opacities scattered throughout both lungs most prominent in the lower lobes. In addition, there are small to moderate sized patchy consolidations scattered throughout both lungs most prominent in the lower lobes. The findings are concerning for multilobar pneumonia. Other etiologies are possible but are felt to be less likely. Recommend follow-up to resolution. 2.There is a Daniels catheter in the bladder. Mild concentric thickening of the calvo of the bladder. Small amount of nondependent air in the bladder which may be due to recent instrumentation or cystitis. 3. Large amount of stool in the rectum. 4. The stomach is distended and filled with air. 5. Small amount of fat stranding with a few locules of air about the posterior aspect of the mid and distal sacrum. No obvious loculated fluid collection identified. No convincing CT evidence for sacral osteomyelitis at this time. (3) Multifocal pneumonia: Code(s): J18.8 - Other pneumonia, unspecified organism Status: Acute Assessment and Plan: Multifocal pneumonia Continue treatment as above (4) Acute UTI: Code(s): N39.0 - Urinary tract infection, site not specified Status: Acute Assessment and Plan: UA was positive for UTI, -continue antibiotics as above (5) Diabetes: Code(s): E11.9 - Type 2 diabetes mellitus without complications Status: Acute Assessment and Plan: Accu-Cheks and sliding scale insulin (6) Sacral ulcer: Code(s): L98.429 - Non-pressure chronic ulcer of back with unspecified severity Status: Acute Assessment and Plan: Patient has a sacral ulcer -appreciate wound care evaluation and recommendations 02/17: CT abdomen and pelvis: Small amount of fat stranding with a few locules of air about the posterior aspect of the mid and distal sacrum. No obvious loculated fluid collection identified. No convincing CT evidence for sacral osteomyelitis at this time. (7) Metabolic acidosis: Code(s): E87.20 - Acidosis, unspecified Status: Acute Assessment and Plan: Patient with metabolic acidosis, hypernatremia, hypophosphatemia, hypokalemia -elevated beta hydroxybutyrate, urine positive for protein, glucose and ketones -most likely related to starvation ketoacidosis causing metabolic acidosis -improved (8) Severe protein-calorie malnutrition: Code(s): E43 - Unspecified severe protein-calorie malnutrition Status: Acute Assessment and Plan: According to the niece patient has lost lot of weight since August 2024, initially she stated he unable to feed himself due to his neuropathy and was not being adequately fed at the [facility], after this surgery and when he was able to move his arms he stated he was not eating well because he was not hungr y. -patient's BMI is 18.3, given his height, age, gender he does classify into severe protein calorie malnutrition -appreciate dietitian evaluation recommendations -continue tube feeds. Advance to goal today -continue thiamine and folic acid. Contain MVI -continue Reglan (9) Electrolyte imbalance: Code(s): E87.8 - Other disorders of electrolyte and fluid balance, not elsewhere classified Status: Acute Assessment and Plan: Hypernatremia improved. Off D5 water. Will increase free water flushes Replace low potassium Nephrology following (10) Constipation: Code(s): K59.00 - Constipation, unspecified Status: Acute Assessment and Plan: Large amount of stool in the rectal vault as seen on the CT scan of the abdomen and pelvis -patient has not had a bowel movement -02/20: Soapsuds enema was given without much improved -patient was given lactulose enema -continue MiraLax, bisacodyl and senna S Plan DVT prophylaxis: Heparin subQ Stress ulcer prophylaxis: Protonix Nutrition: Advance tube feeds to goal of 70 mL/hour Code Status: Full code Critical Care Time Spent: 30 minutes Due to a high probability of clinically significant, life threatening deterioration, the patient required my highest level of preparedness to interven e emergently and I personally spent this critical care time directly and personally managing the patient. This critical care time included obtaining a history; examining the patient; pulse oximetry; ordering and review of studies; arranging urgent treatment with development of a management plan; evaluation of patient's response to treatment; frequent reassessment; and discussions with other providers. It was exclusive of separately billable procedures and treating other patients and teaching time. Please see Assessment and Plan section and the rest of the note for further information on patient assessment and treatment This dictation may have been done utilizing a voice recognition system. Attempts have been made to correct errors. However, there may be uncorrected grammatical, spelling, and recognitions errors present. Subjective Date/time seen: 02/24/25 Overnight events reviewed. Low-grade fever Continues to be on mechanical ventilation 30% FiO2 Off all other infusions Continues to be sedated with Precedex Tolerating tube feeds Good urine output Other Vitals acceptable Review of Systems Review of Systems: ROS unobtainable: Yes unobtainable due to endotracheal tube, unobtainable due to medical condition and unobtainable due to mental status Exam Narrative: General: intubated and sedated, in no acute distress HEENT:? Pupils equal and reactive, sclera is clear, ETT in place Neck:? Supple Respiratory:? Coarse breath sounds bilaterally, decreased at bases, no wheezing, adequate air entry Cardiac:? S1-S2 is normal, sinus tachycardia Abdomen:? Scaphoid abdomen, soft, nontender, hypoactive bowel sounds, patient cachectic and malnourished, patient has a sacral decubitus ulcer Extremities:? No edema, decreased pedal pulses Neuro:? Patient is intubated, off sedation, opens his eyes to name and follows simple commands with all 4 extremities, PERRL Skin:? old healing ulcers on the feet bilaterally Psych:? Unable to assess at this time Objective Data Vital Signs Vital Signs: Vital Signs - 24 hr 02/23/25 09:09 02/23/25 09:57 02/23/25 10:00 Temperature 36.9 C Pulse Rate 94 87 Respiratory Rate 26 H Blood Pressure 119/71 Pulse Oximetry 95 94 Oxygen Delivery Mechanical Ventilation Mechanical Ventilation Fraction of Inspired Oxygen 30 02/23/25 10:00 02/23/25 10:00 02/23/25 10:00 Temperature Pulse Rate 82 92 88 Respiratory Rate 24 H Blood Pressure Pulse Oximetry 98 Oxygen Delivery Mechanical Ventilation Fraction of Inspired Oxygen 02/23/25 11:28 02/23/25 12:00 02/23/25 12:00 Temperature 36.9 C Pulse Rate 94 77 75 Respiratory Rate 26 H 23 H Blood Pressure 87/54 L Pulse Oximetry 95 97 Oxygen Delivery Mechanical Ventilation Fraction of Inspired Oxygen 02/23/25 12:00 02/23/25 12:00 02/23/25 12:00 Temperature Pulse Rate 92 76 Respiratory Rate 27 H Blood Pressure Pulse Oximetry 96 Oxygen Delivery Mechanical Ventilation Fraction of Inspired Oxygen 30 02/23/25 12:41 02/23/25 12:41 02/23/25 14:00 Temperature Pulse Rate 74 74 92 Respiratory Rate 24 H 24 H 26 H Blood Pressure 109/63 Pulse Oximetry 26 L Oxygen Delivery Fraction of Inspired Oxygen 02/23/25 14:00 02/23/25 14:00 02/23/25 14:41 Temperature Pulse Rate 91 93 88 Respiratory Rate 31 H Blood Pressure Pulse Oximetry 95 Oxygen Delivery Mechanical Ventilation Fraction of Inspired Oxygen 30 02/23/25 16:00 02/23/25 16:00 02/23/25 16:00 Temperature Pulse Rate 80 80 Respiratory Rate 25 H Blood Pressure 101/63 Pulse Oximetry 25 L Oxygen Delivery Fraction of Inspired Oxygen 30 02/23/25 16:00 02/23/25 16:00 02/23/25 16:48 Temperature Pulse Rate 80 84 78 Respiratory Rate 25 H 25 H Blood Pressure Pulse Oximetry 96 99 Oxygen Delivery Mechanical Ventilation Mechanical Ventilation Fraction of Inspired Oxygen 30 30 02/23/25 18:00 02/23/25 18:00 02/23/25 18:00 Temperature Pulse Rate 90 89 86 Respiratory Rate 29 H 24 H Blood Pressure 95/61 L Pulse Oximetry 29 L Oxygen Delivery Fraction of Inspired Oxygen 02/23/25 19:17 02/23/25 19:17 02/23/25 20:00 Temperature Pulse Rate 84 84 Respiratory Rate 27 H Blood Pressure Pulse Oximetry 96 96 Oxygen Delivery Mechanical Ventilation Mechanical Ventilation Fraction of Inspired Oxygen 30 30 30 02/23/25 20:00 02/23/25 20:00 02/23/25 20:00 Temperature 37.7 C H Pulse Rate 81 81 81 Respiratory Rate 30 H 21 H Blood Pressure 92/60 L Pulse Oximetry 96 97 Oxygen Delivery Mechanical Ventilation Fraction of Inspired Oxygen 30 02/23/25 20:05 02/23/25 20:07 02/23/25 20:07 Temperature 37.7 C H Pulse Rate 80 81 Respiratory Rate 28 H 30 H Blood Pressure Pulse Oximetry Oxygen Delivery Fraction of Inspired Oxygen 02/23/25 22:00 02/23/25 22:00 02/23/25 22:00 Temperature 37.9 C H Pulse Rate 81 81 80 Respiratory Rate 28 H 28 H Blood Pressure 96/63 L Pulse Oximetry 97 Oxygen Delivery Fraction of Inspired Oxygen 02/23/25 22:45 02/24/25 00:00 02/24/25 00:00 Temperature Pulse Rate 79 79 Respiratory Rate 28 H Blood Pressure Pulse Oximetry 97 97 Oxygen Delivery Mechanical Ventilation Mechanical Ventilation Fraction of Inspired Oxygen 30 30 30 02/24/25 00:00 02/24/25 00:00 02/24/25 01:52 Temperature 37.7 C H Pulse Rate 87 87 83 Respiratory Rate 25 H Blood Pressure 113/60 Pulse Oximetry 96 97 Oxygen Delivery Mechanical Ventilation Fraction of Inspired Oxygen 30 02/24/25 02:00 02/24/25 02:00 02/24/25 02:56 Temperature 37.6 C Pulse Rate 85 82 85 Respiratory Rate 25 H 31 H Blood Pressure 112/63 Pulse Oximetry 97 Oxygen Delivery Fraction of Inspired Oxygen 02/24/25 02:56 02/24/25 04:00 02/24/25 04:00 Temperature Pulse Rate 85 83 Respiratory Rate 31 H Blood Pressure Pulse Oximetry 96 Oxygen Delivery Mechanical Ventilation Fraction of Inspired Oxygen 30 30 02/24/25 04:00 02/24/25 04:00 02/24/25 04:00 Temperature 37.4 C Pulse Rate 87 87 87 Respiratory Rate 23 H 29 H Blood Pressure 120/67 Pulse Oximetry 97 Oxygen Delivery Fraction of Inspired Oxygen 02/24/25 05:00 02/24/25 06:00 02/24/25 06:00 Temperature Pulse Rate 85 88 89 Respiratory Rate 22 H Blood Pressure Pulse Oximetry 97 Oxygen Delivery Mechanical Ventilation Fraction of Inspired Oxygen 30 02/24/25 06:00 02/24/25 08:00 Temperature 38.1 C H Pulse Rate 88 96 Respiratory Rate 32 H 30 H Blood Pressure Pulse Oximetry 96 Oxygen Delivery Fraction of Inspired Oxygen Intake/Output Intake/Output: Intake & Output 02/21/25 02/22/25 02/23/25 02/24/25 23:59 23:59 23:59 23:59 Intake Total 4762.2 3963.3 2927.5 1685.4 Output Total 2450 3875 1750 950 Balance 2312.2 88.3 1177.5 735.4 Meds/Results Medications: Active Medications Generic Name Dose Route Start Last Admin Trade Name Freq PRN Reason Stop Dose Admin Acetaminophen 650 mg 02/17/25 20:19 02/23/25 20:05 Acetaminophen 325 Mg Tablet FEED TUBE 650 mg Q4H PRN Administration Mild Pain (1-3) or Fever Alteplase, Recombinant 2 mg 02/21/25 22:45 02/21/25 23:00 Alteplase 2 Mg Vial (Cathflo) IV PUSH 2 mg ONCE PRN Administration Line Occlusion Bisacodyl 10 mg 02/24/25 09:00 Bisacodyl 10 Mg Suppository RECTAL QAM KENNETH Dextrose 12.5 gm 02/17/25 21:35 Dextrose 50% 25 Gm/50 Ml Syringe IV PUSH PRN PRN Hypoglycemia Protocol Folic Acid 1 mg 02/19/25 09:00 02/23/25 09:04 Folic Acid 1 Mg/0.2 Ml Inj IV PUSH 1 mg QAM KENNETH Administration Glucagon 1 mg 02/17/25 21:35 Glucagon For Inj 1 Mg Vial IM PRN PRN Hypoglycemia Protocol Glucose 15 gm 02/17/25 21:35 Glucose Oral Gel 15 Gm Of Glucse In 37.5 Gm Tube PO PRN PRN Hypoglycemia Protocol Heparin Sodium (Porcine) 5,000 units 02/18/25 14:00 02/24/25 05:58 Heparin Sodium 5,000 Units/Ml Vial SUB-Q 5,000 units Q8HR KENNETH Administration Hydralazine HCl 10 mg 02/21/25 19:36 02/22/25 00:00 Hydralazine Hcl 20 Mg/Ml Vial IV PUSH 10 mg Q6H PRN Administration Blood Pressure - High Cefepime HCl 2 gm/ Sodium 50 mls @ 100 mls/hr 02/18/25 06:00 02/24/25 05:58 Chloride IVPB 02/27/25 06:29 100 mls/hr Q12H KENNETH Administration Dextrose 1,000 mls @ 100 mls/hr 02/17/25 21:35 Dextrose 5% 1,000 Ml IVPB PRN PRN Hypoglycemia Protocol Vancomycin HCl 2,000 mg in 500 mls @ 250 mls/hr 02/22/25 00:00 02/24/25 00:14 Vancomycin 2,000 Mg/Ns 500 Ml IVPB 02/26/25 23:59 250 mls/hr Q12H KENNETH Administration Dexmedetomidine HCl 400 mcg in 100 mls @ 13.14 mls/hr 02/22/25 07:40 02/24/25 08:00 Precedex 400 Mcg/100 Ml IV CONT 0.8 mcg/kg/hr .Q7H37M KENNETH 13.14 mls/hr Protocol Titration 0.8 MCG/KG/HR Insulin Aspart 3 - 6 units 02/18/25 00:00 02/24/25 05:49 Insulin Aspart (*Bkc) 100 Units/Ml SUB-Q Not Given Q4HR [facility] Protocol Insulin Glargine 10 units 02/24/25 09:00 Insulin Glargine (*Bkc) 100 Units/Ml SUB-Q QAM KENNETH Ipratropium [place] 0.5 mg 02/22/25 07:33 Ipratropium Br 0.02% Inh Soln 0.5 Mg/2.5 Ml Vial INHALATION Q6HRT PRN Wheezing Levalbuterol HCl 0.63 mg 02/22/25 07:33 Levalbuterol Neb 1.25 Mg/3 Ml INHALATION Q6HRT PRN Wheezing Metoclopramide HCl 10 mg 02/19/25 12:00 02/24/25 05:58 Metoclopramide Hcl Inj 10 Mg/2 Ml Vial IV PUSH 10 mg Q6HR KENNETH Administration Multi-Ingred Cream/Lotion/Oil/Oint 1 applic 02/17/25 21:00 02/23/25 20:01 Mineral Oil/White Petrolatum Ointment EACH EYE 1 applic Q12HR KENNETH Administration Multivitamins Therapeutic 1 tablet 02/23/25 10:00 02/23/25 09:05 Multivitamins Therapeutic Tab (*Bkc) FEED TUBE 1 tablet QAM KENNETH Administration Pantoprazole Sodium 40 mg 02/18/25 09:00 02/23/25 20:01 Pantoprazole Sodium Iv 40 Mg Vial IV PUSH 40 mg Q12HR KENNETH Administration Polyethylene Glycol 17 gm 02/21/25 09:00 02/23/25 09:09 Polyethylene Glycol 3350 17 Gm Powd.Pack PO 17 gm QAM KENNETH Administration Senna/Docusate Sodium 1 tab 02/17/25 21:00 02/23/25 20:02 Senna/Docusate Sodium Tablet FEED TUBE 1 tab HS KENNETH Administration Sodium Chloride 10 ml 02/18/25 22:00 02/24/25 05:58 Central Line Flush IV PUSH 10 ml Q8HR KENNETH Administration Sodium Chloride 20 ml 02/18/25 16:07 02/20/25 05:33 Central Line Flush IV PUSH 20 ml PRN PRN Administration after blood draws Thiamine HCl 100 mg 02/19/25 09:00 02/23/25 09:03 Thiamine Hcl 200 Mg/2 Ml Vial IV PUSH 100 mg QAM KENNETH Administration Radiology Results: ITS Impressions Head CT 02/17/25 16:55 IMPRESSION: 1. No acute intracranial hemorrhage. No mass effect. 2. Probable chronic ischemic white matter change. Chest/Abdomen/Pelvis CT 02/17/25 17:11 IMPRESSION: 1. Moderate sized groundglass opacities scattered throughout both lungs most prominent in the lower lobes. In addition, there are small to moderate sized patchy consolidations scattered throughout both lungs most prominent in the lower lobes. The findings are concerning for multilobar pneumonia. Other etiologies are possible but are felt to be less likely. Recommend follow-up to resolution. 2.There is a Daniels catheter in the bladder. Mild concentric thickening of the calvo of the bladder. Small amount of nondependent air in the bladder which may be due to recent instrumentation or cystitis. 3. Large amount of stool in the rectum. 4. The stomach is distended and filled with air. 5. Small amount of fat stranding with a few locules of air about the posterior aspect of the mid and distal sacrum. No obvious loculated fluid collection identified. No convincing CT evidence for sacral osteomyelitis at this time. Abdomen Ultrasound 02/19/25 13:00 Impression: Limited study. No acute process Abdomen X-Ray 02/20/25 10:54 IMPRESSION: 1. No acute abdominal abnormality. 2: Bibasilar infiltrates may represent edema or pneumonia. Renal Ultrasound 02/20/25 17:18 IMPRESSION: 1. Normal kidneys without hydronephrosis. 2. Diffuse trabeculated bladder wall thickening suggestive of sequela of chronic outlet obstruction. Chest X-Ray 02/24/25 07:55 IMPRESSION: 1. Persistent patchy airspace opacities in the left lower lung zone consistent with atelectasis or pneumonia. Labs Labs: Laboratory Results - last 24 hr 02/20/25 02/23/25 02/23/25 11:50 11:50 17:48 WBC RBC Hgb Hct MCV MCH MCHC RDW Plt Count MPV Puncture Site ABG pH ABG pCO2 ABG pO2 ABG PO2/FiO2 Ratio ABG HCO3 ABG O2 Saturation ABG O2 Content ABG Base Excess A-a Gradient Oxyhemoglobin Carboxyhemoglobin Methemoglobin Reduced Hemoglobin Total Hemoglobin O2 Delivery Device O2 Liters/Min Minute Volume Vent Rate Vent Mode FiO2 Tidal Volume PEEP Peak Inspir Pressure Pressure Support Sodium Potassium Chloride Carbon Dioxide Anion Gap BUN Creatinine Estim Creat Clear Calc Estimated GFR Glucose POC Capillary Glucose 189 H 210 H Calcium Phosphorus Magnesium Total Bilirubin AST ALT Alkaline Phosphatase Total Protein Albumin Urine Osmolality 615 Vancomycin Trough 02/23/25 02/23/25 02/23/25 18:04 20:08 22:55 WBC RBC Hgb Hct MCV MCH MCHC RDW Plt Count MPV Puncture Site ABG pH ABG pCO2 ABG pO2 ABG PO2/FiO2 Ratio ABG HCO3 ABG O2 Saturation ABG O2 Content ABG Base Excess A-a Gradient Oxyhemoglobin Carboxyhemoglobin Methemoglobin Reduced Hemoglobin Total Hemoglobin O2 Delivery Device O2 Liters/Min Minute Volume Vent Rate Vent Mode FiO2 Tidal Volume PEEP Peak Inspir Pressure Pressure Support Sodium 147 H Potassium 3.9 Chloride 117 H Carbon Dioxide 20 L Anion Gap 10 BUN 24 H Creatinine 0.43 L Estim Creat Clear Calc 140 Estimated GFR > 60 Glucose 224 H POC Capillary Glucose 201 H Calcium 8.2 L Phosphorus Magnesium Total Bilirubin AST ALT Alkaline Phosphatase Total Protein Albumin Urine Osmolality Vancomycin Trough 18.2 02/24/25 02/24/25 02/24/25 00:19 04:08 05:02 WBC 11.3 H RBC 3.22 L Hgb 8.3 L Hct 26.4 L MCV 82.0 MCH 25.8 L MCHC 31.4 L RDW 16.6 H Plt Count 140 L MPV 9.9 Puncture Site Right radial ABG pH 7.507 H* ABG pCO2 26.9 L ABG pO2 77.3 L ABG PO2/FiO2 Ratio 2.58 ABG HCO3 20.8 L ABG O2 Saturation 96.7 ABG O2 Content 12.2 L ABG Base Excess -1.5 A-a Gradient 105.0 Oxyhemoglobin 94.6 Carboxyhemoglobin 0.6 Methemoglobin 0.3 Reduced Hemoglobin 4.5 Total Hemoglobin 9.1 L O2 Delivery Device Ventilator O2 Liters/Min Not Reportable Minute Volume Not Reportable Vent Rate 20 Vent Mode Cmv FiO2 30 Tidal Volume 420 PEEP 8 Peak Inspir Pressure Not Reportable Pressure Support Not Reportable Sodium 147 H Potassium 3.4 Chloride 119 H Carbon Dioxide 23 Anion Gap 5 BUN 24 H Creatinine 0.36 L Estim Creat Clear Calc 164 Estimated GFR > 60 Glucose 206 H POC Capillary Glucose 169 H Calcium 8.0 L Phosphorus 2.6 Magnesium 1.9 Total Bilirubin 0.4 AST 34 ALT 82 H Alkaline Phosphatase 196 H Total Protein 4.9 L Albumin 2.1 L Urine Osmolality Vancomycin Trough Quality VTE Prophylaxis VTE prophylaxis: pharmacologic ordered
[2025-02-24] MEDS: MINERAL OIL/WHITE PETROLATUM OINTMENT 1 APPLIC EACH EYE ×2 (09:32→20:13)
[2025-02-24] MEDS: FOLIC ACID 1 MG/0.2 ML INJ IV PUSH (09:32)
[2025-02-24] MEDS: MULTIVITAMINS THERAPEUTIC TAB (*BKC) 1 TABLET FEED TUBE (09:32)
[2025-02-24] MEDS: BISACODYL 10 MG SUPPOSITORY RECTAL (09:33)
[2025-02-24] MEDS: THIAMINE HCL 200 MG/2 ML VIAL 100 MG IV PUSH (09:33)
[2025-02-24] MEDS: PANTOPRAZOLE SODIUM IV 40 MG VIAL IV PUSH ×2 (09:33→20:13)
[2025-02-24] MEDS: INSULIN ASPART (*BKC) 100 UNITS/ML SUB-Q ×3 (09:38→20:19)
[2025-02-24] MEDS: INSULIN GLARGINE (*BKC) 100 UNITS/ML 10 UNITS SUB-Q (09:38)
[2025-02-24] MEDS: dexmedeTOMIDine 400 MCG/100 ML 400 MCG/100 ML BAG 11.5 MCG IV CONT ×2 (10:13→18:12)
--- NOTE | 2025-02-24 11:12 | PCFNICU ---
ICU Rounding Note: Pt current nutrition is Vital AF 1.2 at 60 ml/hr. Nutrition recommendation: goal rate 70 ml/hr. Last recorded weight is 72.4 kg, up from 56.1 kg on admit. Bowel Motility: No BM reported-suppository given today per nursing. Labs Reviewed: Glu 206, Na 147, Jct 26.4. Hgb 8.3 Meds Noted:MVI, Thiamine, Folic Acid, Miralax, Precedex, Reglan Skin: WNL Additional Notes: Patient remains on mechanical vent, tube feedings are being tolerated of Vital AF 1.2 with plans for goal rate today. Flush increased today to 300 ml q 4 hours 2/2 to Na 147 today. Agree with diet orders at this time. Following daily in ICU rounds. Will monitor weight, labs, skin, diet orders, meds every Friday and Friday.
--- NOTE | 2025-02-24 17:06 | PM.IMPN ---
Progress Note: A&P Assessment and Plan (1) Severe protein-calorie malnutrition: Code(s): E43 - Unspecified severe protein-calorie malnutrition Status: Acute (2) Septic shock: Code(s): A41.9 - Sepsis, unspecified organism; R65.21 - Severe sepsis with septic shock Status: Acute (3) Pneumonia: Code(s): J18.9 - Pneumonia, unspecified organism Status: Acute (4) Acute respiratory failure: Code(s): J96.00 - Acute respiratory failure, unspecified whether with hypoxia or hypercapnia Status: Acute (5) Acute UTI: Code(s): N39.0 - Urinary tract infection, site not specified Status: Acute Plan He had low-grade fever overnight. None during the day, continue to monitor. Continues to be on mechanical ventilation and daily SBT. Sedated with Precedex only. Tolerating tube feeds. Daily glargine has been added. Septic shock has improved. Blood pressure acceptable. Follow urine cultures, sputum culture, blood cultures. Currently on cefepime and vancomycin, completed doxycycline. On 03/16/2025 he still has a high RSBI score. Tracheostomy is a consideration. Nephrology following, acidosis improved. Continue bowel regimen and monitor for bowel movement. Patient is full code. Tube feeds, heparin subQ 5000 units q.8 hours, critical but stable condition. Subjective Date/time seen: 02/24/25 17:06 Interval history: Patient wake up to voice and physical touch. Does not follow simple commands but blinks his eyes. Does not appear to be in any pain/agitation. Review of Systems Review of Systems: All systems reviewed & are unremarkable except as noted in HPI and below (Subjective) Exam Const: General: comfortable Eyes: Pupils: Equal, round and reactive pupils present Resp: Other: No Adventitious sounds, mechanical breathing Cardio: Rate: regular rate Rhythm: regular rhythm GI: Inspection: non-distended GI Palp: Yes Soft to palpation Extrem: Other: Edema of the bilateral hands Objective Data Vital Signs Vital Signs: Vital Signs - 24 hr 02/23/25 18:00 02/23/25 18:00 02/23/25 18:00 Temperature Pulse Rate 90 89 86 Respiratory Rate 29 H 24 H Blood Pressure 95/61 L Pulse Oximetry 29 L Oxygen Delivery Fraction of Inspired Oxygen 02/23/25 19:17 02/23/25 19:17 02/23/25 20:00 Temperature Pulse Rate 84 84 Respiratory Rate 27 H Blood Pressure Pulse Oximetry 96 96 Oxygen Delivery Mechanical Ventilation Mechanical Ventilation Fraction of Inspired Oxygen 30 30 30 02/23/25 20:00 02/23/25 20:00 02/23/25 20:00 Temperature 100 F H Pulse Rate 81 81 81 Respiratory Rate 30 H 21 H Blood Pressure 92/60 L Pulse Oximetry 96 97 Oxygen Delivery Mechanical Ventilation Fraction of Inspired Oxygen 30 02/23/25 20:05 02/23/25 20:07 02/23/25 20:07 Temperature 100 F H Pulse Rate 80 81 Respiratory Rate 28 H 30 H Blood Pressure Pulse Oximetry Oxygen Delivery Fraction of Inspired Oxygen 02/23/25 22:00 02/23/25 22:00 02/23/25 22:00 Temperature 100.2 F H Pulse Rate 81 81 80 Respiratory Rate 28 H 28 H Blood Pressure 96/63 L Pulse Oximetry 97 Oxygen Delivery Fraction of Inspired Oxygen 02/23/25 22:45 02/24/25 00:00 02/24/25 00:00 Temperature Pulse Rate 79 79 Respiratory Rate 28 H Blood Pressure Pulse Oximetry 97 97 Oxygen Delivery Mechanical Ventilation Mechanical Ventilation Fraction of Inspired Oxygen 30 30 30 02/24/25 00:00 02/24/25 00:00 02/24/25 01:52 Temperature 100 F H Pulse Rate 87 87 83 Respiratory Rate 25 H Blood Pressure 113/60 Pulse Oximetry 96 97 Oxygen Delivery Mechanical Ventilation Fraction of Inspired Oxygen 30 02/24/25 02:00 02/24/25 02:00 02/24/25 02:56 Temperature 99.6 F Pulse Rate 85 82 85 Respiratory Rate 25 H 31 H Blood Pressure 112/63 Pulse Oximetry 97 Oxygen Delivery Fraction of Inspired Oxygen 02/24/25 02:56 02/24/25 04:00 02/24/25 04:00 Temperature Pulse Rate 85 83 Respiratory Rate 31 H Blood Pressure Pulse Oximetry 96 Oxygen Delivery Mechanical Ventilation Fraction of Inspired Oxygen 30 30 02/24/25 04:00 02/24/25 04:00 02/24/25 04:00 Temperature 99.4 F Pulse Rate 87 87 87 Respiratory Rate 23 H 29 H Blood Pressure 120/67 Pulse Oximetry 97 Oxygen Delivery Fraction of Inspired Oxygen 02/24/25 05:00 02/24/25 06:00 02/24/25 06:00 Temperature Pulse Rate 85 88 89 Respiratory Rate 22 H Blood Pressure Pulse Oximetry 97 Oxygen Delivery Mechanical Ventilation Fraction of Inspired Oxygen 30 02/24/25 06:00 02/24/25 07:45 02/24/25 08:00 Temperature 100.5 F H Pulse Rate 88 84 96 Respiratory Rate 32 H 30 H Blood Pressure Pulse Oximetry 96 97 Oxygen Delivery Mechanical Ventilation Fraction of Inspired Oxygen 30 02/24/25 08:00 02/24/25 08:00 02/24/25 08:00 Temperature Pulse Rate 102 H 102 H Respiratory Rate 35 H Blood Pressure Pulse Oximetry 94 Oxygen Delivery Mechanical Ventilation Fraction of Inspired Oxygen 30 30 02/24/25 08:00 02/24/25 09:25 02/24/25 10:00 Temperature 100.1 F H Pulse Rate 102 H 85 Respiratory Rate 35 H 19 Blood Pressure 128/72 Pulse Oximetry 94 Oxygen Delivery Mechanical Ventilation Fraction of Inspired Oxygen 30 02/24/25 10:00 02/24/25 10:00 02/24/25 10:13 Temperature 100.2 F H Pulse Rate 88 88 85 Respiratory Rate 22 H 19 Blood Pressure 96/58 L Pulse Oximetry 95 Oxygen Delivery Fraction of Inspired Oxygen 02/24/25 11:06 02/24/25 12:00 02/24/25 12:00 Temperature Pulse Rate 84 83 83 Respiratory Rate 27 H 24 H Blood Pressure Pulse Oximetry 95 97 Oxygen Delivery Mechanical Ventilation Mechanical Ventilation Fraction of Inspired Oxygen 30 30 02/24/25 12:00 02/24/25 12:00 02/24/25 12:00 Temperature 99.1 F Pulse Rate 83 82 Respiratory Rate 24 H Blood Pressure 94/55 L Pulse Oximetry 97 Oxygen Delivery Fraction of Inspired Oxygen 30 02/24/25 14:00 02/24/25 14:00 02/24/25 14:00 Temperature 99.6 F Pulse Rate 86 88 88 Respiratory Rate 25 H 21 H Blood Pressure 103/54 L Pulse Oximetry 97 Oxygen Delivery Fraction of Inspired Oxygen 02/24/25 14:11 02/24/25 16:00 02/24/25 16:00 Temperature Pulse Rate 84 80 80 Respiratory Rate 21 H Blood Pressure Pulse Oximetry 96 97 Oxygen Delivery Mechanical Ventilation Mechanical Ventilation Fraction of Inspired Oxygen 30 30 02/24/25 16:00 02/24/25 16:00 02/24/25 16:00 Temperature 101.2 F H Pulse Rate 80 80 Respiratory Rate 21 H 21 H Blood Pressure 95/54 L Pulse Oximetry 97 Oxygen Delivery Fraction of Inspired Oxygen 30 02/24/25 16:29 Temperature Pulse Rate 84 Respiratory Rate Blood Pressure Pulse Oximetry 97 Oxygen Delivery Mechanical Ventilation Fraction of Inspired Oxygen 30 Intake/Output Intake/Output: Intake & Output 02/21/25 02/22/25 02/23/25 02/24/25 23:59 23:59 23:59 23:59 Intake Total 4762.2 3963.3 2927.5 2328.2 Output Total 2450 3875 1750 950 Balance 2312.2 88.3 1177.5 1378.2 Meds/Results Medications: Active Medications Generic Name Dose Route Start Last Admin Trade Name Freq PRN Reason Stop Dose Admin Acetaminophen 650 mg 02/17/25 20:19 02/23/25 20:05 Acetaminophen 325 Mg Tablet FEED TUBE 650 mg Q4H PRN Administration Mild Pain (1-3) or Fever Alteplase, Recombinant 2 mg 02/21/25 22:45 02/21/25 23:00 Alteplase 2 Mg Vial (Cathflo) IV PUSH 2 mg ONCE PRN Administration Line Occlusion Bisacodyl 10 mg 02/24/25 09:00 02/24/25 09:33 Bisacodyl 10 Mg Suppository RECTAL 10 mg QAM KENNETH Administration Dextrose 12.5 gm 02/17/25 21:35 Dextrose 50% 25 Gm/50 Ml Syringe IV PUSH PRN PRN Hypoglycemia Protocol Folic Acid 1 mg 02/19/25 09:00 02/24/25 09:32 Folic Acid 1 Mg/0.2 Ml Inj IV PUSH 1 mg QAM KENNETH Administration Glucagon 1 mg 02/17/25 21:35 Glucagon For Inj 1 Mg Vial IM PRN PRN Hypoglycemia Protocol Glucose 15 gm 02/17/25 21:35 Glucose Oral Gel 15 Gm Of Glucse In 37.5 Gm Tube PO PRN PRN Hypoglycemia Protocol Heparin Sodium (Porcine) 5,000 units 02/18/25 14:00 02/24/25 14:14 Heparin Sodium 5,000 Units/Ml Vial SUB-Q 5,000 units Q8HR KENNETH Administration Hydralazine HCl 10 mg 02/21/25 19:36 02/22/25 00:00 Hydralazine Hcl 20 Mg/Ml Vial IV PUSH 10 mg Q6H PRN Administration Blood Pressure - High Cefepime HCl 2 gm/ Sodium 50 mls @ 100 mls/hr 02/18/25 06:00 02/24/25 06:28 Chloride IVPB 02/27/25 06:29 Infused Q12H KENNETH Infusion Dextrose 1,000 mls @ 100 mls/hr 02/17/25 21:35 Dextrose 5% 1,000 Ml IVPB PRN PRN Hypoglycemia Protocol Vancomycin HCl 2,000 mg in 500 mls @ 250 mls/hr 02/22/25 00:00 02/24/25 12:06 Vancomycin 2,000 Mg/Ns 500 Ml IVPB 02/26/25 23:59 250 mls/hr Q12H KENNETH Administration Dexmedetomidine HCl 400 mcg in 100 mls @ 11.498 mls/hr 02/22/25 07:40 02/24/25 16:00 Precedex 400 Mcg/100 Ml IV CONT 0.7 mcg/kg/hr .Q8H42M KENNETH 11.5 mls/hr Protocol Titration 0.7 MCG/KG/HR Insulin Aspart 3 - 6 units 02/18/25 00:00 02/24/25 12:56 Insulin Aspart (*Bkc) 100 Units/Ml SUB-Q 3 units Q4HR KENNETH Administration Protocol Insulin Glargine 10 units 02/24/25 09:00 02/24/25 09:38 Insulin Glargine (*Bkc) 100 Units/Ml SUB-Q 10 units QAM KENNETH Administration Ipratropium [place] 0.5 mg 02/22/25 07:33 Ipratropium Br 0.02% Inh Soln 0.5 Mg/2.5 Ml Vial INHALATION Q6HRT PRN Wheezing Levalbuterol HCl 0.63 mg 02/22/25 07:33 Levalbuterol Neb 1.25 Mg/3 Ml INHALATION Q6HRT PRN Wheezing Metoclopramide HCl 10 mg 02/19/25 12:00 02/24/25 12:06 Metoclopramide Hcl Inj 10 Mg/2 Ml Vial IV PUSH 10 mg Q6HR KENNETH Administration Multi-Ingred Cream/Lotion/Oil/Oint 1 applic 02/17/25 21:00 02/24/25 09:32 Mineral Oil/White Petrolatum Ointment EACH EYE 1 applic Q12HR KENNETH Administration Multivitamins Therapeutic 1 tablet 02/23/25 10:00 02/24/25 09:32 Multivitamins Therapeutic Tab (*Bkc) FEED TUBE 1 tablet QAM KENNETH Administration Pantoprazole Sodium 40 mg 02/18/25 09:00 02/24/25 09:33 Pantoprazole Sodium Iv 40 Mg Vial IV PUSH 40 mg Q12HR KENNETH Administration Polyethylene Glycol 17 gm 02/21/25 09:00 02/24/25 09:33 Polyethylene Glycol 3350 17 Gm Powd.Pack PO 17 gm QAM KENNETH Administration Senna/Docusate Sodium 1 tab 02/17/25 21:00 02/23/25 20:02 Senna/Docusate Sodium Tablet FEED TUBE 1 tab HS KENNETH Administration Sodium Chloride 10 ml 02/18/25 22:00 02/24/25 14:51 Central Line Flush IV PUSH 10 ml Q8HR KENNETH Administration Sodium Chloride 20 ml 02/18/25 16:07 02/20/25 05:33 Central Line Flush IV PUSH 20 ml PRN PRN Administration after blood draws Thiamine HCl 100 mg 02/19/25 09:00 02/24/25 09:33 Thiamine Hcl 200 Mg/2 Ml Vial IV PUSH 100 mg QAM KENNETH Administration Radiology Results: ITS Impressions Head CT 02/17/25 16:55 IMPRESSION: 1. No acute intracranial hemorrhage. No mass effect. 2. Probable chronic ischemic white matter change. Chest/Abdomen/Pelvis CT 02/17/25 17:11 IMPRESSION: 1. Moderate sized groundglass opacities scattered throughout both lungs most prominent in the lower lobes. In addition, there are small to moderate sized patchy consolidations scattered throughout both lungs most prominent in the lower lobes. The findings are concerning for multilobar pneumonia. Other etiologies are possible but are felt to be less likely. Recommend follow-up to resolution. 2.There is a Daniels catheter in the bladder. Mild concentric thickening of the calvo of the bladder. Small amount of nondependent air in the bladder which may be due to recent instrumentation or cystitis. 3. Large amount of stool in the rectum. 4. The stomach is distended and filled with air. 5. Small amount of fat stranding with a few locules of air about the posterior aspect of the mid and distal sacrum. No obvious loculated fluid collection identified. No convincing CT evidence for sacral osteomyelitis at this time. Abdomen Ultrasound 02/19/25 13:00 Impression: Limited study. No acute process Abdomen X-Ray 02/20/25 10:54 IMPRESSION: 1. No acute abdominal abnormality. 2: Bibasilar infiltrates may represent edema or pneumonia. Renal Ultrasound 02/20/25 17:18 IMPRESSION: 1. Normal kidneys without hydronephrosis. 2. Diffuse trabeculated bladder wall thickening suggestive of sequela of chronic outlet obstruction. Chest X-Ray 02/24/25 07:55 IMPRESSION: 1. Persistent patchy airspace opacities in the left lower lung zone consistent with atelectasis or pneumonia. Labs Labs: Laboratory Results - last 24 hr 02/20/25 02/23/25 02/23/25 11:50 17:48 18:04 WBC RBC Hgb Hct MCV MCH MCHC RDW Plt Count MPV Puncture Site ABG pH ABG pCO2 ABG pO2 ABG PO2/FiO2 Ratio ABG HCO3 ABG O2 Saturation ABG O2 Content ABG Base Excess A-a Gradient Oxyhemoglobin Carboxyhemoglobin Methemoglobin Reduced Hemoglobin Total Hemoglobin O2 Delivery Device O2 Liters/Min Minute Volume Vent Rate Vent Mode FiO2 Tidal Volume PEEP Peak Inspir Pressure Pressure Support Sodium 147 H Potassium 3.9 Chloride 117 H Carbon Dioxide 20 L Anion Gap 10 BUN 24 H Creatinine 0.43 L Estim Creat Clear Calc 140 Estimated GFR > 60 Glucose 224 H POC Capillary Glucose 210 H Calcium 8.2 L Phosphorus Magnesium Total Bilirubin AST ALT Alkaline Phosphatase Total Protein Albumin Urine Osmolality 615 Vancomycin Trough 02/23/25 02/23/25 02/24/25 20:08 22:55 00:19 WBC RBC Hgb Hct MCV MCH MCHC RDW Plt Count MPV Puncture Site ABG pH ABG pCO2 ABG pO2 ABG PO2/FiO2 Ratio ABG HCO3 ABG O2 Saturation ABG O2 Content ABG Base Excess A-a Gradient Oxyhemoglobin Carboxyhemoglobin Methemoglobin Reduced Hemoglobin Total Hemoglobin O2 Delivery Device O2 Liters/Min Minute Volume Vent Rate Vent Mode FiO2 Tidal Volume PEEP Peak Inspir Pressure Pressure Support Sodium Potassium Chloride Carbon Dioxide Anion Gap BUN Creatinine Estim Creat Clear Calc Estimated GFR Glucose POC Capillary Glucose 201 H 169 H Calcium Phosphorus Magnesium Total Bilirubin AST ALT Alkaline Phosphatase Total Protein Albumin Urine Osmolality Vancomycin Trough 18.2 02/24/25 02/24/25 02/24/25 04:08 05:02 08:56 WBC 11.3 H RBC 3.22 L Hgb 8.3 L Hct 26.4 L MCV 82.0 MCH 25.8 L MCHC 31.4 L RDW 16.6 H Plt Count 140 L MPV 9.9 Puncture Site Right radial ABG pH 7.507 H* ABG pCO2 26.9 L ABG pO2 77.3 L ABG PO2/FiO2 Ratio 2.58 ABG HCO3 20.8 L ABG O2 Saturation 96.7 ABG O2 Content 12.2 L ABG Base Excess -1.5 A-a Gradient 105.0 Oxyhemoglobin 94.6 Carboxyhemoglobin 0.6 Methemoglobin 0.3 Reduced Hemoglobin 4.5 Total Hemoglobin 9.1 L O2 Delivery Device Ventilator O2 Liters/Min Not Reportable Minute Volume Not Reportable Vent Rate 20 Vent Mode Cmv FiO2 30 Tidal Volume 420 PEEP 8 Peak Inspir Pressure Not Reportable Pressure Support Not Reportable Sodium 147 H Potassium 3.4 Chloride 119 H Carbon Dioxide 23 Anion Gap 5 BUN 24 H Creatinine 0.36 L Estim Creat Clear Calc 164 Estimated GFR > 60 Glucose 206 H POC Capillary Glucose 240 H Calcium 8.0 L Phosphorus 2.6 Magnesium 1.9 Total Bilirubin 0.4 AST 34 ALT 82 H Alkaline Phosphatase 196 H Total Protein 4.9 L Albumin 2.1 L Urine Osmolality Vancomycin Trough 02/24/25 12:50 WBC RBC Hgb Hct MCV MCH MCHC RDW Plt Count MPV Puncture Site ABG pH ABG pCO2 ABG pO2 ABG PO2/FiO2 Ratio ABG HCO3 ABG O2 Saturation ABG O2 Content ABG Base Excess A-a Gradient Oxyhemoglobin Carboxyhemoglobin Methemoglobin Reduced Hemoglobin Total Hemoglobin O2 Delivery Device O2 Liters/Min Minute Volume Vent Rate Vent Mode FiO2 Tidal Volume PEEP Peak Inspir Pressure Pressure Support Sodium Potassium Chloride Carbon Dioxide Anion Gap BUN Creatinine Estim Creat Clear Calc Estimated GFR Glucose POC Capillary Glucose 234 H Calcium Phosphorus Magnesium Total Bilirubin AST ALT Alkaline Phosphatase Total Protein Albumin Urine Osmolality Vancomycin Trough
[2025-02-24] MEDS: ACETAMINOPHEN 325 MG TABLET 650 MG FEED TUBE (18:13)
[2025-02-24] MEDS: SENNA/DOCUSATE SODIUM TABLET 1 TAB FEED TUBE (20:13)
[2025-02-24 23:08] LABS: Osmolality, Serum 336 mOsmol/kg (280-301)
[2025-02-25] VITALS (27 sets, daily range): BP systolic 85–132; BP diastolic 56–75; PULSE 79–119; RESP 11–39; TEMP 36.7–37.2; O2SAT 95–98
[2025-02-25] MEDS: VANCOMYCIN 2,000 MG/NS 500 ML 2,000 MG/500 ML BAG 250 MG IVPB ×2 (00:29→12:18)
[2025-02-25] MEDS: INSULIN ASPART (*BKC) 100 UNITS/ML SUB-Q ×3 (00:30→08:13)
[2025-02-25] MEDS: METOCLOPRAMIDE HCL INJ 10 MG/2 ML VIAL IV PUSH ×4 (00:30→17:17)
[2025-02-25] MEDS: dexmedeTOMIDine 400 MCG/100 ML 400 MCG/100 ML BAG 11.5 MCG IV CONT (02:41)
[2025-02-25 05:05] LABS: Hematocrit 25.4 % (42.0-52.0); Hemoglobin 8.0 g/dL (14.0-18.0); Mean Corpuscular HGB Conc 31.5 g/dl (32-36); Mean Corpuscular Hemoglobin 26.4 pg (26-34); Mean Corpuscular Volume 83.8 fl (80-100); Platelet Count Result 153 k/mm3 (150-375); Red Blood Count 3.03 M/mm3 (4.6-6.20); White Blood Count 11.0 K/mm3 (4.5-10.0)
[2025-02-25 05:13] LABS: Alanine Aminotransferase 64 U/L (6-50); Albumin Level 2.2 g/dL (3.5-5.1); Alkaline Phosphatase 171 U/L (38-126); Anion Gap 1 mmol/L (4-12); Aspartate Amino Transferase 37 U/L (17-59); Bilirubin,Total 0.3 mg/dL (0.2-1.3); Blood Urea Nitrogen 25 mg/dL (9-20); Calcium 7.8 mg/dL (8.4-10.2); Carbon Dioxide 28 mmol/L (22-30); Chloride 118 mmol/L (98-107); Estimated CRCL calculation 176 ml/min; Estimated Glomerular Filt Rate > 60; Glucose 211 mg/dL (65-110); Magnesium 1.9 mg/dL (1.6-2.3); Potassium 3.2 mmol/L (3.4-5.0); Sodium 147 mmol/L (137-145); Total Protein 5.2 g/dL (6.3-8.2)
[2025-02-25] MEDS: CEFEPIME 2 GM in SODIUM CHLORIDE 0.9% IV 50 ML 100 ML IVPB ×2 (05:27→17:16)
[2025-02-25] MEDS: CENTRAL LINE FLUSH 10 ML IV PUSH ×3 (05:28→22:06)
[2025-02-25 05:29] LABS: Alveolar/Arterial O2 Gradient 101.0 mmHg; Carboxyhemoglobin 1.0 % THb (0-2.0); Fractional Inspired Oxygen 30 %; HCO3 ABG 23.3 mEq/l (22.0-26.0); Methemoglobin ABG 0.3 %THb (0-1.5); Oxygen Content ABG 11.2 %vol (16.0-22.0); Oxygen Saturation ABG 96.7 % (95.0-100.0); PCO2 ABG 30.0 mmHg (35.0-45.0); PO2 ABG 77.7 mmHg (80.0-100.0); PO2 FiO2 Ratio Arterial Blood 2.59 %; Reduced Hemoglobin 4.9 %THb (0-5.0)
[2025-02-25 05:30] LABS: Arterial Blood Gas Tidal Volume 400 ml; Arterial Blood Gas Ventilator rate 16 /MIN; Site Drawn RIGHT BRACHIAL
[2025-02-25] MEDS: POTASSIUM BICARBONATE 25 MEQ TABEF 50 MEQ FEED TUBE (08:12)
[2025-02-25] MEDS: KCL 40 MEQ/WATER 100 ML 100 ML 25 ML IVPB (08:12)
[2025-02-25] MEDS: FOLIC ACID 1 MG/0.2 ML INJ IV PUSH (08:13)
[2025-02-25] MEDS: PANTOPRAZOLE SODIUM IV 40 MG VIAL IV PUSH ×2 (08:13→20:05)
[2025-02-25] MEDS: THIAMINE HCL 200 MG/2 ML VIAL 100 MG IV PUSH (08:13)
[2025-02-25] MEDS: MULTIVITAMINS THERAPEUTIC TAB (*BKC) 1 TABLET FEED TUBE (08:13)
[2025-02-25] MEDS: INSULIN GLARGINE (*BKC) 100 UNITS/ML 10 UNITS SUB-Q (08:13)
[2025-02-25] MEDS: BISACODYL 10 MG SUPPOSITORY RECTAL (08:13)
--- NOTE | 2025-02-25 08:18 | P.PNINT_ITS ---
Progress Note: A&P Assessment and Plan (1) Septic shock: Code(s): A41.9 - Sepsis, unspecified organism; R65.21 - Severe sepsis with septic shock Status: Acute Assessment and Plan: 02/17: Patient presented from a skilled nursing with altered mental status, shortness of breath. Initially had Leukocytosis. Patient did receive 2 L IV fluid bolus in the ER, was transferred to the intermediate Unit and immediately upon arrival to the IMU, rapid response was called due to hypoxia, tachypnea, tachycardia. Patient was transferred to of the ICU -likely etiology pneumonia and UTI -lactic acid normalized in patient is now off of vasopressors -adequately fluid-resuscitated in the ICU -02/17: Preliminary blood cultures are negative x2 -02/17: Urine cultures grew superficial organisms -02/18: Sputum culture growing Klebsiella friend, MRSA and Dolores tropicalis 02/17: Nasal MRSA screen was positive Continue cefepime and vancomycin (02/17), completed course of doxycycline Off IV fluids (2) Acute respiratory failure: Code(s): J96.00 - Acute respiratory failure, unspecified whether with hypoxia or hypercapnia Status: Acute Assessment and Plan: 02/17: Patient was transferred to the ICU from intermediate Unit. He was emergently intubated by ER physician likely cause multifocal pneumonia Patient is on CMV mode of ventilation, peep of 10, 40% FiO2. Decrease PEEP to 8 Chest x-ray and ABGs reviewed, Continue bronchodilators - Xopenex and Atrovent but change to p.r.n. 02/22 Patient awake and following commands but tachypneic with rate in high 30s. When I placed patient on PSV 01/28 patient's respiratory rate was up to 40s. Patient was started on Precedex infusion for anxiolysis and given Lasix 02/238 PSV done again today. RSBI borderline. Patient with increased work of breathing. Will increase pressure support and continue as long as patient tolerates. Will give another dose of Lasix today 02/24 PSV weaning trial was again attempted this morning. High RSBI and re spiratory rate. Patient needed pressure support of 15/8 for adequate RSBI. Patient was then placed on ASV at 80%. It was continued through the day. Patient appears very weak and debilitated. Weaning is going to be difficult and long. Patient may very well need tracheostomy. Will continue working with him daily 02/25 will try PSV again today. Patient has history of high cervical myelopathy they could be component of diaphragmatic weakness. Continue daily assessment for SBT Treatment of pneumonia as above 02/17: CT chest, abdomen and pelvis IMPRESSION: 1. Moderate sized groundglass opacities scattered throughout both lungs most prominent in the lower lobes. In addition, there are small to moderate sized patchy consolidations scattered throughout both lungs most prominent in the lower lobes. The findings are concerning for multilobar pneumonia. Other etiologies are possible but are felt to be less likely. Recommend follow-up to resolution. 2.There is a Daniels catheter in the bladder. Mild concentric thickening of the calvo of the bladder. Small amount of nondependent air in the bladder which may be due to recent instrumentation or cystitis. 3. Large amount of stool in the rectum. 4. The stomach is distended and filled with air. 5. Small amount of fat stranding with a few locules of air about the posterior aspect of the mid and distal sacrum. No obvious loculated fluid collection identified. No convincing CT evidence for sacral osteomyelitis at this time. (3) Multifocal pneumonia: Code(s): J18.8 - Other pneumonia, unspecified organism Status: Acute Assessment and Plan: Multifocal pneumonia Continue treatment as above (4) Acute UTI: Code(s): N39.0 - Urinary tract infection, site not specified Status: Acute Assessment and Plan: UA was positive for UTI, -continue antibiotics as above (5) Diabetes: Code(s): E11.9 - Type 2 diabetes mellitus without complications Status: Acute Assessment and Plan: Accu-Cheks and sliding scale insulin (6) Sacral ulcer: Code(s): L98.429 - Non-pressure chronic ulcer of back with unspecified severity Status: Acute Assessment and Plan: Patient has a sacral ulcer -appreciate wound care evaluation and recommendations 02/17: CT abdomen and pelvis: Small amount of fat stranding with a few locules of air about the posterior aspect of the mid and distal sacrum. No obvious loculated fluid collection identified. No convincing CT evidence for sacral osteomyelitis at this time. (7) Metabolic acidosis: Code(s): E87.20 - Acidosis, unspecified Status: Acute Assessment and Plan: Patient with metabolic acidosis, hypernatremia, hypophosphatemia, hypokalemia -elevated beta hydroxybutyrate, urine positive for protein, glucose and ketones -most likely related to starvation ketoacidosis causing metabolic acidosis -improved (8) Severe protein-calorie malnutrition: Code(s): E43 - Unspecified severe protein-calorie malnutrition Status: Acute Assessment and Plan: According to the niece patient has lost lot of weight since August 2024, initially she stated he unable to feed himself due to his neuropathy and was not being adequately fed at the skilled nursing, after this surgery and when he was able to move his arms he stated he was not eating well because he was not hungry. -patient's BMI is 18.3, given his height, age, gender he does classify into severe protein calorie malnutrition -appreciate dietitian evaluation recommendations -continue tube feeds. Advance to goal today -continue thiamine and folic acid. Contain MVI -continue Reglan (9) Electrolyte imbalance: Code(s): E87.8 - Other disorders of electrolyte and fluid balance, not elsewhere classified Status: Acute Assessment and Plan: Hypernatremia improved. Off D5 water. Will increase free water flushes Replace low potassium Nephrology following (10) Constipation: Code(s): K59.00 - Constipation, unspecified Status: Acute Assessment and Plan: Large amount of stool in the rectal vault as seen on the CT scan of the abdomen and pelvis -patient has not had a bowel movement -02/20: Soapsuds enema was given without much improved -patient was given lactulose enema -continue MiraLax, bisacodyl and senna S -patient is having bowel movements now (11) Weakness: Code(s): R53.1 - Weakness Status: Acute Assessment and Plan: Patient had cervical myelopathy and had some ankle surgery with fusion and instrumentation early this year since then patient has been mostly bedbound. Family states the patient was already seen in skilled nursing in the bed and few times a wheelchair. He has significant weakness in both arms and legs. They also state that he had poor p.o. intake and had trouble and difficulty with the eating. Plan DVT prophylaxis: Heparin subQ Stress ulcer prophylaxis: Protonix Nutrition: Continue tube feeds at goal of 70 mL/hour Code Status: Full code Critical Care Time Spent: 30 minutes Due to a high probability of clinically significant, life threatening deterioration, the patient required my highest level of preparedness to intervene emergently and I personally spent this critical care time directly and personally managing the patient. This critical care time included obtaining a history; examining the patient; pulse oximetry; ordering and review of studies; arranging urgent treatment with development of a management plan; evaluation of patient's response to treatment; frequent reassessment; and discussions with other providers. It was exclusive of separately billable procedures and treating other patients and teaching time. Please see Assessment and Plan section and the rest of the note for further information on patient assessment and treatment This dictation may have been done utilizing a voice recognition system. Attempts have been made to correct errors. However, there may be uncorrected grammatical, spelling, and recognitions errors present. Subjective Date/time seen: 02/25/25 Overnight events reviewed. Afebrile Continues to be on mechanical ventilation 30% FiO2 Tolerating tube feed Continues to be sedated with Precedex Acceptable urine output Awake and follows commands. Very weak Review of Systems Review of Systems: ROS unobtainable: Yes unobtainable due to endotracheal tube, unobtainable due to medical condition and unobtainable due to mental status Exam Narrative: General: intubated and sedated, in no acute distress HEENT:? Pupils equal and reactive, sclera is clear, ETT in place Neck:? Supple Respiratory:? Coarse breath sounds bilaterally, decreased at bases, no wheezing, adequate air entry Cardiac:? S1-S2 is normal, sinus tachycardia Abdomen:? Scaphoid abdomen, soft, nontender, hypoactive bowel sounds, patient cachectic and malnourished, patient has a sacral decubitus ulcer Extremities:? No edema, decreased pedal pulses Neuro:? Patient is intubated, off sedation, opens his eyes to name and follows simple commands with all 4 extremities but appears to be very weak, PERRL Skin:? old healing ulcers on the feet bilaterally Psych:? Unable to assess at this time Objective Data Vital Signs Vital Signs: Vital Signs - 24 hr 02/24/25 09:25 02/24/25 10:00 02/24/25 10:00 Temperature Pulse Rate 85 88 Respiratory Rate 19 Blood Pressure Pulse Oximetry Oxygen Delivery Mechanical Ventilation Fraction of Inspired Oxygen 30 02/24/25 10:00 02/24/25 10:13 02/24/25 11:06 Temperature 37.9 C H Pulse Rate 88 85 84 Respiratory Rate 22 H 19 Blood Pressure 96/58 L Pulse Oximetry 95 95 Oxygen Delivery Mechanical Ventilation Fraction of Inspired Oxygen 30 02/24/25 12:00 02/24/25 12:00 02/24/25 12:00 Temperature Pulse Rate 83 83 83 Respiratory Rate 27 H 24 H Blood Pressure Pulse Oximetry 97 Oxygen Delivery Mechanical Ventilation Fraction of Inspired Oxygen 30 02/24/25 12:00 02/24/25 12:00 02/24/25 14:00 Temperature 37.3 C Pulse Rate 82 86 Respiratory Rate 24 H 25 H Blood Pressure 94/55 L Pulse Oximetry 97 Oxygen Delivery Fraction of Inspired Oxygen 30 02/24/25 14:00 02/24/25 14:00 02/24/25 14:11 Temperature 37.6 C Pulse Rate 88 88 84 Respiratory Rate 21 H Blood Pressure 103/54 L Pulse Oximetry 97 96 Oxygen Delivery Mechanical Ventilation Fraction of Inspired Oxygen 30 02/24/25 16:00 02/24/25 16:00 02/24/25 16:00 Temperature Pulse Rate 80 80 Respiratory Rate 21 H Blood Pressure Pulse Oximetry 97 Oxygen Delivery Mechanical Ventilation Fraction of Inspired Oxygen 30 30 02/24/25 16:00 02/24/25 16:00 02/24/25 16:29 Temperature 38.4 C H Pulse Rate 80 80 84 Respiratory Rate 21 H 21 H Blood Pressure 95/54 L Pulse Oximetry 97 97 Oxygen Delivery Mechanical Ventilation Fraction of Inspired Oxygen 30 02/24/25 18:00 02/24/25 18:00 02/24/25 18:12 Temperature 38.4 C H Pulse Rate 100 100 81 Respiratory Rate 26 H 28 H Blood Pressure 108/63 Pulse Oximetry 94 Oxygen Delivery Fraction of Inspired Oxygen 02/24/25 18:12 02/24/25 18:13 02/24/25 20:00 Temperature 38.4 C H Pulse Rate 81 94 Respiratory Rate 28 H 25 H Blood Pressure Pulse Oximetry Oxygen Delivery Fraction of Inspired Oxygen 02/24/25 20:00 02/24/25 20:00 02/24/25 20:00 Temperature 36.9 C Pulse Rate 96 Respiratory Rate 25 H Blood Pressure 111/61 Pulse Oximetry 95 95 Oxygen Delivery Mechanical Ventilation Fraction of Inspired Oxygen 30 30 02/24/25 20:00 02/24/25 20:02 02/24/25 20:17 Temperature 36.9 C Pulse Rate 97 94 Respiratory Rate Blood Pressure Pulse Oximetry 95 Oxygen Delivery Mechanical Ventilation Fraction of Inspired Oxygen 30 02/24/25 22:00 02/24/25 22:00 02/24/25 22:00 Temperature Pulse Rate 86 86 86 Respiratory Rate 27 H 27 H Blood Pressure 99/58 L Pulse Oximetry 95 Oxygen Delivery Fraction of Inspired Oxygen 02/24/25 23:01 02/25/25 00:00 02/25/25 00:00 Temperature Pulse Rate 86 Respiratory Rate Blood Pressure Pulse Oximetry 97 96 Oxygen Delivery Mechanical Ventilation Mechanical Ventilation Fraction of Inspired Oxygen 30 30 30 02/25/25 00:00 02/25/25 00:00 02/25/25 00:00 Temperature 36.7 C Pulse Rate 89 85 85 Respiratory Rate 26 H 26 H Blood Pressure 85/59 L Pulse Oximetry 97 Oxygen Delivery Fraction of Inspired Oxygen 02/25/25 00:27 02/25/25 01:57 02/25/25 02:00 Temperature Pulse Rate 84 79 Respiratory Rate Blood Pressure 124/64 Pulse Oximetry 97 Oxygen Delivery Mechanical Ventilation Fraction of Inspired Oxygen 30 02/25/25 02:00 02/25/25 02:00 02/25/25 02:41 Temperature Pulse Rate 79 79 82 Respiratory Rate 25 H 25 H 27 H Blood Pressure 94/56 L Pulse Oximetry 97 Oxygen Delivery Fraction of Inspired Oxygen 02/25/25 02:41 02/25/25 04:00 02/25/25 04:00 Temperature Pulse Rate 82 Respiratory Rate 27 H Blood Pressure Pulse Oximetry 98 Oxygen Delivery Mechanical Ventilation Fraction of Inspired Oxygen 30 30 02/25/25 04:00 02/25/25 04:00 02/25/25 04:00 Temperature 36.7 C Pulse Rate 83 85 83 Respiratory Rate 24 H 24 H Blood Pressure 121/70 Pulse Oximetry 98 Oxygen Delivery Fraction of Inspired Oxygen 02/25/25 05:05 02/25/25 06:00 02/25/25 06:00 Temperature Pulse Rate 83 95 95 Respiratory Rate 23 H Blood Pressure 130/64 Pulse Oximetry 98 95 Oxygen Delivery Mechanical Ventilation Fraction of Inspired Oxygen 30 02/25/25 06:00 Temperature Pulse Rate 95 Respiratory Rate 23 H Blood Pressure Pulse Oximetry Oxygen Delivery Fraction of Inspired Oxygen Intake/Output Intake/Output: Intake & Output 02/22/25 02/23/25 02/24/25 02/25/25 23:59 23:59 23:59 23:59 Intake Total 3963.3 2927.5 4311.2 2284.0 Output Total 3875 1750 3600 1150 Balance 88.3 1177.5 711.2 1134.0 Meds/Results Medications: Active Medications Generic Name Dose Route Start Last Admin Trade Name Freq PRN Reason Stop Dose Admin Acetaminophen 650 mg 02/17/25 20:19 02/24/25 18:13 Acetaminophen 325 Mg Tablet FEED TUBE 650 mg Q4H PRN Administration Mild Pain (1-3) or Fever Alteplase, Recombinant 2 mg 02/21/25 22:45 02/21/25 23:00 Alteplase 2 Mg Vial (Cathflo) IV PUSH 2 mg ONCE PRN Administration Line Occlusion Bisacodyl 10 mg 02/24/25 09:00 02/25/25 08:13 Bisacodyl 10 Mg Suppository RECTAL 10 mg QAM KENNETH Administration Dextrose 12.5 gm 02/17/25 21:35 Dextrose 50% 25 Gm/50 Ml Syringe IV PUSH PRN PRN Hypoglycemia Protocol Folic Acid 1 mg 02/19/25 09:00 02/25/25 08:13 Folic Acid 1 Mg/0.2 Ml Inj IV PUSH 1 mg QAM KENNETH Administration Furosemide 80 mg 02/25/25 12:00 Furosemide Inj 100 Mg/10 Ml Vial IV PUSH 02/25/25 12:01 ONCE ONE Glucagon 1 mg 02/17/25 21:35 Glucagon For Inj 1 Mg Vial IM PRN PRN Hypoglycemia Protocol Glucose 15 gm 02/17/25 21:35 Glucose Oral Gel 15 Gm Of Glucse In 37.5 Gm Tube PO PRN PRN Hypoglycemia Protocol Heparin Sodium (Porcine) 5,000 units 02/18/25 14:00 02/25/25 05:27 Heparin Sodium 5,000 Units/Ml Vial SUB-Q 5,000 units Q8HR KENNETH Administration Hydralazine HCl 10 mg 02/21/25 19:36 02/22/25 00:00 Hydralazine Hcl 20 Mg/Ml Vial IV PUSH 10 mg Q6H PRN Administration Blood Pressure - High Cefepime HCl 2 gm/ Sodium 50 mls @ 100 mls/hr 02/18/25 06:00 02/25/25 06:13 Chloride IVPB 02/27/25 06:29 Infused Q12H KENNETH Infusion Dextrose 1,000 mls @ 100 mls/hr 02/17/25 21:35 Dextrose 5% 1,000 Ml IVPB PRN PRN Hypoglycemia Protocol Vancomycin HCl 2,000 mg in 500 mls @ 250 mls/hr 02/22/25 00:00 02/25/25 02:42 Vancomycin 2,000 Mg/Ns 500 Ml IVPB 02/26/25 23:59 Infused Q12H KENNETH Infusion Dexmedetomidine HCl 400 mcg in 100 mls @ 9.855 mls/hr 02/22/25 07:40 02/25/25 06:00 Precedex 400 Mcg/100 Ml IV CONT 0.6 mcg/kg/hr .Q10H9M KENNETH 9.86 mls/hr Protocol Titration 0.6 MCG/KG/HR Potassium Chloride 100 mls @ 25 mls/hr 02/25/25 07:34 02/25/25 08:12 Kcl 40 Meq/Water 100 Ml IVPB 02/25/25 11:33 25 mls/hr ONCE ONE Administration Insulin Aspart 3 - 6 units 02/18/25 00:00 02/25/25 08:13 Insulin Aspart (*Bkc) 100 Units/Ml SUB-Q 3 units Q4HR KENNETH Administration Protocol Insulin Glargine 10 units 02/24/25 09:00 02/25/25 08:13 Insulin Glargine (*Bkc) 100 Units/Ml SUB-Q 10 units QAM KENNETH Administration Ipratropium [place] 0.5 mg 02/22/25 07:33 Ipratropium Br 0.02% Inh Soln 0.5 Mg/2.5 Ml Vial INHALATION Q6HRT PRN Wheezing Levalbuterol HCl 0.63 mg 02/22/25 07:33 Levalbuterol Neb 1.25 Mg/3 Ml INHALATION Q6HRT PRN Wheezing Metoclopramide HCl 10 mg 02/19/25 12:00 02/25/25 05:27 Metoclopramide Hcl Inj 10 Mg/2 Ml Vial IV PUSH 10 mg Q6HR KENNETH Administration Multi-Ingred Cream/Lotion/Oil/Oint 1 applic 02/17/25 21:00 02/24/25 20:13 Mineral Oil/White Petrolatum Ointment EACH EYE 1 applic Q12HR KENNETH Administration Multivitamins Therapeutic 1 tablet 02/23/25 10:00 02/25/25 08:13 Multivitamins Therapeutic Tab (*Bkc) FEED TUBE 1 tablet QAM KENNETH Administration Pantoprazole Sodium 40 mg 02/18/25 09:00 02/25/25 08:13 Pantoprazole Sodium Iv 40 Mg Vial IV PUSH 40 mg Q12HR KENNETH Administration Polyethylene Glycol 17 gm 02/21/25 09:00 02/25/25 08:13 Polyethylene Glycol 3350 17 Gm Powd.Pack PO 17 gm QAM KENNETH Administration Senna/Docusate Sodium 1 tab 02/17/25 21:00 02/24/25 20:13 Senna/Docusate Sodium Tablet FEED TUBE 1 tab HS KENNETH Administration Sodium Chloride 10 ml 02/18/25 22:00 02/25/25 05:28 Central Line Flush IV PUSH 10 ml Q8HR KENNETH Administration Sodium Chloride 20 ml 02/18/25 16:07 02/20/25 05:33 Central Line Flush IV PUSH 20 ml PRN PRN Administration after blood draws Thiamine HCl 100 mg 02/19/25 09:00 02/25/25 08:13 Thiamine Hcl 200 Mg/2 Ml Vial IV PUSH 100 mg QAM KENNETH Administration Radiology Results: ITS Impressions Head CT 02/17/25 16:55 IMPRESSION: 1. No acute intracranial hemorrhage. No mass effect. 2. Probable chronic ischemic white matter change. Chest/Abdomen/Pelvis CT 02/17/25 17:11 IMPRESSION: 1. Moderate sized groundglass opacities scattered throughout both lungs most prominent in the lower lobes. In addition, there are small to moderate sized patchy consolidations scattered throughout both lungs most prominent in the lower lobes. The findings are concerning for multilobar pneumonia. Other etiologies are possible but are felt to be less likely. Recommend follow-up to resolution. 2.There is a Daniels catheter in the bladder. Mild concentric thickening of the calvo of the bladder. Small amount of nondependent air in the bladder which may be due to recent instrumentation or cystitis. 3. Large amount of stool in the rectum. 4. The stomach is distended and filled with air. 5. Small amount of fat stranding with a few locules of air about the posterior a spect of the mid and distal sacrum. No obvious loculated fluid collection identified. No convincing CT evidence for sacral osteomyelitis at this time. Abdomen Ultrasound 02/19/25 13:00 Impression: Limited study. No acute process Abdomen X-Ray 02/20/25 10:54 IMPRESSION: 1. No acute abdominal abnormality. 2: Bibasilar infiltrates may represent edema or pneumonia. Renal Ultrasound 02/20/25 17:18 IMPRESSION: 1. Normal kidneys without hydronephrosis. 2. Diffuse trabeculated bladder wall thickening suggestive of sequela of chronic outlet obstruction. Chest X-Ray 02/25/25 07:39 IMPRESSION: 1. Persistent opacity left lower lung zone which could represent atelectasis and/or pneumonia. Labs Labs: Laboratory Results - last 24 hr 02/20/25 02/24/25 02/24/25 12:48 08:56 12:50 WBC RBC Hgb Hct MCV MCH MCHC RDW Plt Count MPV Puncture Site ABG pH ABG pCO2 ABG pO2 ABG PO2/FiO2 Ratio ABG HCO3 ABG O2 Saturation ABG O2 Content ABG Base Excess A-a Gradient Oxyhemoglobin Carboxyhemoglobin Methemoglobin Reduced Hemoglobin Total Hemoglobin O2 Delivery Device O2 Liters/Min Minute Volume Vent Rate Vent Mode FiO2 Tidal Volume PEEP Peak Inspir Pressure Pressure Support Sodium Potassium Chloride Carbon Dioxide Anion Gap BUN Creatinine Estim Creat Clear Calc Estimated GFR Glucose POC Capillary Glucose 240 H 234 H Serum Osmolality 336 H Calcium Phosphorus Magnesium Total Bilirubin AST ALT Alkaline Phosphatase Total Protein Albumin 02/24/25 02/24/25 02/25/25 17:18 20:12 00:26 WBC RBC Hgb Hct MCV MCH MCHC RDW Plt Count MPV Puncture Site ABG pH ABG pCO2 ABG pO2 ABG PO2/FiO2 Ratio ABG HCO3 ABG O2 Saturation ABG O2 Content ABG Base Excess A-a Gradient Oxyhemoglobin Carboxyhemoglobin Methemoglobin Reduced Hemoglobin Total Hemoglobin O2 Delivery Device O2 Liters/Min Minute Volume Vent Rate Vent Mode FiO2 Tidal Volume PEEP Peak Inspir Pressure Pressure Support Sodium Potassium Chloride Carbon Dioxide Anion Gap BUN Creatinine Estim Creat Clear Calc Estimated GFR Glucose POC Capillary Glucose 156 H 236 H 216 H Serum Osmolality Calcium Phosphorus Magnesium Total Bilirubin AST ALT Alkaline Phosphatase Total Protein Albumin 02/25/25 02/25/25 02/25/25 04:52 05:17 07:37 WBC 11.0 H RBC 3.03 L Hgb 8.0 L Hct 25.4 L MCV 83.8 MCH 26.4 MCHC 31.5 L RDW 16.5 H Plt Count 153 MPV 10.1 Puncture Site Right brachial ABG pH 7.508 H* ABG pCO2 30.0 L ABG pO2 77.7 L ABG PO2/FiO2 Ratio 2.59 ABG HCO3 23.3 ABG O2 Saturation 96.7 ABG O2 Content 11.2 L ABG Base Excess 0.6 A-a Gradient 101.0 Oxyhemoglobin 93.8 Carboxyhemoglobin 1.0 Methemoglobin 0.3 Reduced Hemoglobin 4.9 Total Hemoglobin 8.4 L O2 Delivery Device Ventilator O2 Liters/Min Not Reportable Minute Volume Not Reportable Vent Rate 16 Vent Mode Cmv FiO2 30 Tidal Volume 400 PEEP 8 Peak Inspir Pressure Not Reportable Pressure Support Not Reportable Sodium 147 H Potassium 3.2 L Chloride 118 H Carbon Dioxide 28 Anion Gap 1 L BUN 25 H Creatinine 0.33 L Estim Creat Clear Calc 176 Estimated GFR > 60 Glucose 211 H POC Capillary Glucose 203 H Serum Osmolality Calcium 7.8 L Phosphorus 2.7 Magnesium 1.9 Total Bilirubin 0.3 AST 37 ALT 64 H Alkaline Phosphatase 171 H Total Protein 5.2 L Albumin 2.2 L Quality VTE Prophylaxis VTE prophylaxis: pharmacologic ordered
[2025-02-25] MEDS: MINERAL OIL/WHITE PETROLATUM OINTMENT 1 APPLIC EACH EYE ×2 (08:26→20:06)
--- NOTE | 2025-02-25 09:01 | P.PNNP_ITS ---
Progress Note: A&P Assessment and Plan (1) Metabolic acidosis: Code(s): E87.20 - Acidosis, unspecified Status: Acute Assessment and Plan: * resolved * due to a combination of lactic acidosis and starvation ketoacidosis * slow and steady improvement noted * continue current therapy (2) Hypernatremia: Code(s): E87.0 - Hyperosmolality and hypernatremia Status: Acute Assessment and Plan: * slow improvement noted * due to free water deficit * improvement noted with D5W IVFs * discontinued today * use D5W IVFs as needed * continue free water flushes and titrate as needed (3) Electrolyte imbalance: Code(s): E87.8 - Other disorders of electrolyte and fluid balance, not elsewhere classified Status: Acute Assessment and Plan: * noted issues with hypokalemia and hypophosphatemia... * probably related to poor oral intake with a component of re-feeding syndrome * overall, continue to slowly improve * replete as needed * follow magnesium as well (4) Septic shock: Code(s): A41.9 - Sepsis, unspecified organism; R65.21 - Severe sepsis with septic shock Status: Acute Assessment and Plan: * as noted on presentation - AMS, tachypnea, hypoxia, leukocytosis and subsequ ent hypotension * suspect secondary to pneumonia and possible UTI * s/p IVF resuscitation * was on vasopressor therapy but has since been weaned off * culture data noted: * blood culture negative to date * urine culture with superficial organisms * sputum culture with Klebsiella, MRSA, and Dolores tropicalis * on antibiotics * follow hemodynamics (5) Acute respiratory failure: Code(s): J96.00 - Acute respiratory failure, unspecified whether with hypoxia or hypercapnia Status: Acute Assessment and Plan: * presumable due to pneumonia and sepsis * intubated on 02/17 * gentle diuresis as tolerated * on antibiotics for pneumonia * ventilator weaning as tolerated (6) Anemia: Code(s): D64.9 - Anemia, unspecified Status: Acute Assessment and Plan: * likely secondary to acute illness * follow trend of H/H * PRBC transfusion per protocol (7) Severe protein-calorie malnutrition: Code(s): E43 - Unspecified severe protein-calorie malnutrition Status: Acute Assessment and Plan: * poor oral intake/nutrion prior to admission * on tube feeds * 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 Marques Not much else to add -- will continue to follow from a distance. Subjective Date/time seen: 02/25/25 09:01 Interval history: Follow-up for hypernatremia, hypokalemia, hypophosphatemia, and acidosis Fluctuating sodium levels and potassium levels noted (due to PRN diuresis) but acidosis not an issues at this time; remains intubated/sedated and on mechanical ventilation; stable hemodynamics noted with good urine output. Exam Narrative: General: cachectic male intubated and on mechanical ventilation Heart: normal S1 and S2; no rub Lungs: coarse breath sounds Abdomen: soft, nontender, nondistended, positive bowel sounds Extremities: no cyanosis or clubbing; no edema Skin: no rash or nodules Objective Data Vital Signs Vital Signs: Vital Signs Temp Pulse Resp BP Pulse Ox O2 Del Method FiO2 02/25/25 08:06 97 97 Mechanical Ventilation 02/25/25 08:05 02/25/25 08:00 95 02/25/25 08:00 98.7 F 119 H 37 H 130/73 97 02/25/25 08:00 119 H 39 H 97 Mechanical Ventilation 02/25/25 08:00 100 33 H 02/25/25 06:00 95 23 H 02/25/25 06:00 95 23 H 130/64 95 02/25/25 06:00 95 02/25/25 05:05 83 98 Mechanical Ventilation 02/25/25 04:00 83 24 H 02/25/25 04:00 85 02/25/25 04:00 98.1 F 83 24 H 121/70 98 02/25/25 04:00 02/25/25 04:00 98 Mechanical Ventilation 30 02/25/25 02:41 82 27 H 02/25/25 02:41 82 27 H 02/25/25 02:00 79 25 H 02/25/25 02:00 79 25 H 94/56 L 97 02/25/25 02:00 79 02/25/25 01:57 84 97 Mechanical Ventilation 02/25/25 00:27 124/64 02/25/25 00:00 85 26 H 02/25/25 00:00 98.1 F 85 26 H 85/59 L 97 02/25/25 00:00 89 02/25/25 00:00 30 02/25/25 00:00 96 Mechanical Ventilation 02/24/25 23:01 86 97 Mechanical Ventilation 02/24/25 22:00 86 27 H 02/24/25 22:00 86 27 H 99/58 L 95 02/24/25 22:00 86 02/24/25 20:17 98.4 F 02/24/25 20:02 94 95 Mechanical Ventilation 02/24/25 20:00 97 02/24/25 20:00 98.4 F 96 25 H 111/61 95 02/24/25 20:00 30 02/24/25 20:00 95 Mechanical Ventilation 02/24/25 20:00 94 25 H 02/24/25 18:13 101.2 F H 02/24/25 18:12 81 28 H 02/24/25 18:12 81 28 H 02/24/25 18:00 101.2 F H 100 26 H 108/63 94 02/24/25 18:00 100 02/24/25 16:29 84 97 Mechanical Ventilation 30 Intake/Output Intake/Output: Intake & Output 02/22/25 02/23/25 02/24/25 02/25/25 23:59 23:59 23:59 23:59 Intake Total 3963.3 2927.5 4311.2 2956.2 Output Total 3875 1750 3600 1150 Balance 88.3 1177.5 711.2 1806.2 Meds/Results Medications: Active Medications Generic Name Dose Route Start Last Admin Trade Name Freq PRN Reason Stop Dose Admin Acetaminophen 650 mg 02/17/25 20:19 02/24/25 18:13 Acetaminophen 325 Mg Tablet FEED TUBE 650 mg Q4H PRN Administration Mild Pain (1-3) or Fever Alteplase, Recombinant 2 mg 02/21/25 22:45 02/21/25 23:00 Alteplase 2 Mg Vial (Cathflo) IV PUSH 2 mg ONCE PRN Administration Line Occlusion Bisacodyl 10 mg 02/24/25 09:00 02/25/25 08:13 Bisacodyl 10 Mg Suppository RECTAL 10 mg QAM KENNETH Administration Dextrose 12.5 gm 02/17/25 21:35 Dextrose 50% 25 Gm/50 Ml Syringe IV PUSH PRN PRN Hypoglycemia Protocol Folic Acid 1 mg 02/19/25 09:00 02/25/25 08:13 Folic Acid 1 Mg/0.2 Ml Inj IV PUSH 1 mg QAM KENNETH Administration Glucagon 1 mg 02/17/25 21:35 Glucagon For Inj 1 Mg Vial IM PRN PRN Hypoglycemia Protocol Glucose 15 gm 02/17/25 21:35 Glucose Oral Gel 15 Gm Of Glucse In 37.5 Gm Tube PO PRN PRN Hypoglycemia Protocol Heparin Sodium (Porcine) 5,000 units 02/18/25 14:00 02/25/25 13:31 Heparin Sodium 5,000 Units/Ml Vial SUB-Q 5,000 units Q8HR KENNETH Administration Hydralazine HCl 10 mg 02/21/25 19:36 02/22/25 00:00 Hydralazine Hcl 20 Mg/Ml Vial IV PUSH 10 mg Q6H PRN Administration Blood Pressure - High Cefepime HCl 2 gm/ Sodium 50 mls @ 100 mls/hr 02/18/25 06:00 02/25/25 06:13 Chloride IVPB 02/27/25 06:29 Infused Q12H KENNETH Infusion Dextrose 1,000 mls @ 100 mls/hr 02/17/25 21:35 Dextrose 5% 1,000 Ml IVPB PRN PRN Hypoglycemia Protocol Vancomycin HCl 2,000 mg in 500 mls @ 250 mls/hr 02/22/25 00:00 02/25/25 14:06 Vancomycin 2,000 Mg/Ns 500 Ml IVPB 02/26/25 23:59 Infused Q12H KENNETH Infusion Dexmedetomidine HCl 400 mcg in 100 mls @ 6.57 mls/hr 02/22/25 07:40 02/25/25 14:00 Precedex 400 Mcg/100 Ml IV CONT 0.4 mcg/kg/hr .[id number] KENNETH 6.57 mls/hr Protocol Titration 0.4 MCG/KG/HR Insulin Aspart 3 - 6 units 02/18/25 00:00 02/25/25 11:59 Insulin Aspart (*Bkc) 100 Units/Ml SUB-Q Not Given Q4HR KENNETH Protocol Insulin Glargine 10 units 02/24/25 09:00 02/25/25 08:13 Insulin Glargine (*Bkc) 100 Units/Ml SUB-Q 10 units QAM KENNETH Administration Ipratropium [place] 0.5 mg 02/22/25 07:33 Ipratropium Br 0.02% Inh Soln 0.5 Mg/2.5 Ml Vial INHALATION Q6HRT PRN Wheezing Levalbuterol HCl 0.63 mg 02/22/25 07:33 Levalbuterol Neb 1.25 Mg/3 Ml INHALATION Q6HRT PRN Wheezing Metoclopramide HCl 10 mg 02/19/25 12:00 02/25/25 12:12 Metoclopramide Hcl Inj 10 Mg/2 Ml Vial IV PUSH 10 mg Q6HR KENNETH Administration Multi-Ingred Cream/Lotion/Oil/Oint 1 applic 02/17/25 21:00 02/25/25 08:26 Mineral Oil/White Petrolatum Ointment EACH EYE 1 applic Q12HR KENNETH Administration Multivitamins Therapeutic 1 tablet 02/23/25 10:00 02/25/25 08:13 Multivitamins Therapeutic Tab (*Bkc) FEED TUBE 1 tablet QAM KENNETH Administration Pantoprazole Sodium 40 mg 02/18/25 09:00 02/25/25 08:13 Pantoprazole Sodium Iv 40 Mg Vial IV PUSH 40 mg Q12HR KENNETH Administration Polyethylene Glycol 17 gm 02/21/25 09:00 02/25/25 08:13 Polyethylene Glycol 3350 17 Gm Powd.Pack PO 17 gm QAM KENNETH Administration Senna/Docusate Sodium 1 tab 02/17/25 21:00 02/24/25 20:13 Senna/Docusate Sodium Tablet FEED TUBE 1 tab HS KENNETH Administration Sodium Chloride 10 ml 02/18/25 22:00 02/25/25 13:31 Central Line Flush IV PUSH 10 ml Q8HR KENNETH Administration Sodium Chloride 20 ml 02/18/25 16:07 02/20/25 05:33 Central Line Flush IV PUSH 20 ml PRN PRN Administration after blood draws Thiamine HCl 100 mg 02/19/25 09:00 02/25/25 08:13 Thiamine Hcl 200 Mg/2 Ml Vial IV PUSH 100 mg QAM KENNETH Administration Radiology Results: ITS Impressions Head CT 02/17/25 16:55 IMPRESSION: 1. No acute intracranial hemorrhage. No mass effect. 2. Probable chronic ischemic white matter change. Chest/Abdomen/Pelvis CT 02/17/25 17:11 IMPRESSION: 1. Moderate sized groundglass opacities scattered throughout both lungs most prominent in the lower lobes. In addition, there are small to moderate sized patchy consolidations scattered throughout both lungs most prominent in the lower lobes. The findings are concerning for multilobar pneumonia. Other etiologies are possible but are felt to be less likely. Recommend follow-up to resolution. 2.There is a Daniels catheter in the bladder. Mild concentric thickening of the calvo of the bladder. Small amount of nondependent air in the bladder which may be due to recent instrumentation or cystitis. 3. Large amount of stool in the rectum. 4. The stomach is distended and filled with air. 5. Small amount of fat stranding with a few locules of air about the posterior aspect of the mid and distal sacrum. No obvious loculated fluid collection identified. No convincing CT evidence for sacral osteomyelitis at this time. Abdomen Ultrasound 02/19/25 13:00 Impression: Limited study. No acute process Abdomen X-Ray 02/20/25 10:54 IMPRESSION: 1. No acute abdominal abnormality. 2: Bibasilar infiltrates may represent edema or pneumonia. Renal Ultrasound 02/20/25 17:18 IMPRESSION: 1. Normal kidneys without hydronephrosis. 2. Diffuse trabeculated bladder wall thickening suggestive of sequela of chronic outlet obstruction. Chest X-Ray 02/25/25 07:39 IMPRESSION: 1. Persistent opacity left lower lung zone which could represent atelectasis and/or pneumonia. Labs Labs: Laboratory Results - last 24 hr 02/25/25 04:52 WBC 11.0 H Hgb 8.0 L Hct 25.4 L Plt Count 153 Sodium 147 H Potassium 3.2 L Chloride 118 H Carbon Dioxide 28 Anion Gap 1 L BUN 25 H Creatinine 0.33 L Estim Creat Clear Calc 176 Estimated GFR > 60 Glucose 211 H Calcium 7.8 L Phosphorus 2.7 Magnesium 1.9 Total Bilirubin 0.3 AST 37 ALT 64 H Alkaline Phosphatase 171 H Total Protein 5.2 L Albumin 2.2 L
[2025-02-25 10:35] LABS: Arterial Blood Gas Tidal Volume 450 ml
--- NOTE | 2025-02-25 11:08 | PCNFU ---
Nutrition Follow-Up Complete: Severe Protein Calorie Malnutrition as related to inadequate protein-energy intake with increased protein-energy needs in setting of chronic disease as evidenced by minimal oral intake for > 1-2 months; severe muscle wasting (temporalis/clavicile) and severe subcutaneous fat loss (orbital fat pads). Goal: Meet estimated nutritional needs Patient will continue current goal. Pt current nutrition is Vital AF 1.2 at 70 ml/hr. Last recorded weight is 69.4 kg, up from 56.1 kg on admit. Bowel Motility: +BM reported 02/25 Labs Reviewed:Na 147, BUN 25, Cr 0.33, Glu 211, Alb 2.2 Meds Noted:Thiamine, Folic Acid, MVI, Miralax, Reglan, Precedex Skin: WNL Additional Notes:Patient remans on a mechanical vent. Tube feedings are being tolerated at goal rate of 70 ml/hr of Vital AF 1.2 at 70 ml/hr. Total Nutrition: 1848/116 gm protein/1249 ml water. Flush 300 ml q 4 hours due to elevated Na 147 today. Will continue to monitor flush and Na for further recommendations. Will monitor weight, labs, skin, diet orders, meds every Friday and Friday.
[2025-02-25] MEDS: dexmedeTOMIDine 400 MCG/100 ML 400 MCG/100 ML BAG 6.57 MCG IV CONT (12:11)
[2025-02-25] MEDS: FUROSEMIDE INJ 100 MG/10 ML VIAL 80 MG IV PUSH (12:12)
--- NOTE | 2025-02-25 13:48 | P.PNIM_ITS ---
Progress Note: A&P Assessment and Plan (1) Severe protein-calorie malnutrition: Code(s): E43 - Unspecified severe protein-calorie malnutrition Status: Acute (2) Septic shock: Code(s): A41.9 - Sepsis, unspecified organism; R65.21 - Severe sepsis with septic shock Status: Acute (3) Pneumonia: Code(s): J18.9 - Pneumonia, unspecified organism Status: Acute (4) Acute respiratory failure: Code(s): J96.00 - Acute respiratory failure, unspecified whether with hypoxia or hypercapnia Status: Acute (5) Acute UTI: Code(s): N39.0 - Urinary tract infection, site not specified Status: Acute Plan Patient presented with altered mental status shortness of breath. Initially had leukocytosis received IV fluid resuscitation and was transferred to IMU however immediately upon arrival to IMU rapid response was called due to hypoxia tachypnea tachycardia was transferred to ICU. Septic shock requiring vasopressors which now off. Preliminary blood cultures negative x2. Urine culture grew use superficial organisms. Sputum culture grew Klebsiella MRSA and Dolores tropicalis. Nasal MRSA was positive. On cefepime and vancomycin since 02/17. Completed course of doxycycline Acute respiratory failure emergently intubated likely secondary to multifocal pneumonia. Daily SBT trial CT chest abdomen pelvis with moderate size ground-glass opacities scattered throughout both lungs prominent in lower lobes. Small to moderate-sized patchy consultation scattered throughout both lungs most prominent in the lower lobes. Finding concerning for multi low over pneumonia. Multifocal pneumonia as noted above UTI Type 2 diabetes SSI Sacral decubitus ulcer continue wound care. CT negative for osteomyelitis Metabolic acidosis Protein calorie mild nutrition on tube feeds MVI thiamine folic acid Electrolyte imbalance continue to monitor Constipation large amount of stool in rectal vault S in the CT of the abdomen pelvis. Needed enema now resolved Generalized weakness History of cervical myelopathy DVT prophylaxis heparin subQ Nutrition tube feed Code status full code Subjective Date/time seen: 02/25/25 13:48 Interval history: Chart reviewed. Patient remains intubated and sedated Review of Systems Review of Systems: ROS unobtainable: Yes unobtainable due to mental status Exam Narrative: General: intubated and sedated, in no acute distress HEENT:? Pupils equal and reactive, sclera is clear, ETT in place Neck:? Supple Respiratory:? Coarse breath sounds bilaterally, decreased at bases, no wheezing, adequate air entry Cardiac:? S1-S2 is normal Abdomen:? Scaphoid abdomen, soft, nontender, hypoactive bowel sounds, patient cachectic and malnourished, patient has a sacral decubitus ulcer Extremities:? No edema, decreased pedal pulses Neuro:? Patient is intubated Skin:? old healing ulcers on the feet bilaterally Psych:? Unable to assess at this time Objective Data Vital Signs Vital Signs: Vital Signs - 24 hr 02/24/25 14:00 02/24/25 14:00 02/24/25 14:00 Temperature 99.6 F Pulse Rate 86 88 88 Respiratory Rate 25 H 21 H Blood Pressure 103/54 L Pulse Oximetry 97 Oxygen Delivery Fraction of Inspired Oxygen 02/24/25 14:11 02/24/25 16:00 02/24/25 16:00 Temperature Pulse Rate 84 80 80 Respiratory Rate 21 H Blood Pressure Pulse Oximetry 96 97 Oxygen Delivery Mechanical Ventilation Mechanical Ventilation Fraction of Inspired Oxygen 30 30 02/24/25 16:00 02/24/25 16:00 02/24/25 16:00 Temperature 101.2 F H Pulse Rate 80 80 Respiratory Rate 21 H 21 H Blood Pressure 95/54 L Pulse Oximetry 97 Oxygen Delivery Fraction of Inspired Oxygen 30 02/24/25 16:29 02/24/25 18:00 02/24/25 18:00 Temperature 101.2 F H Pulse Rate 84 100 100 Respiratory Rate 26 H Blood Pressure 108/63 Pulse Oximetry 97 94 Oxygen Delivery Mechanical Ventilation Fraction of Inspired Oxygen 30 02/24/25 18:12 02/24/25 18:12 02/24/25 18:13 Temperature 101.2 F H Pulse Rate 81 81 Respiratory Rate 28 H 28 H Blood Pressure Pulse Oximetry Oxygen Delivery Fraction of Inspired Oxygen 02/24/25 20:00 02/24/25 20:00 02/24/25 20:00 Temperature Pulse Rate 94 Respiratory Rate 25 H Blood Pressure Pulse Oximetry 95 Oxygen Delivery Mechanical Ventilation Fraction of Inspired Oxygen 30 30 02/24/25 20:00 02/24/25 20:00 02/24/25 20:02 Temperature 98.4 F Pulse Rate 96 97 94 Respiratory Rate 25 H Blood Pressure 111/61 Pulse Oximetry 95 95 Oxygen Delivery Mechanical Ventilation Fraction of Inspired Oxygen 30 02/24/25 20:17 02/24/25 22:00 02/24/25 22:00 Temperature 98.4 F Pulse Rate 86 86 Respiratory Rate 27 H Blood Pressure 99/58 L Pulse Oximetry 95 Oxygen Delivery Fraction of Inspired Oxygen 02/24/25 22:00 02/24/25 23:01 02/25/25 00:00 Temperature Pulse Rate 86 86 Respiratory Rate 27 H Blood Pressure Pulse Oximetry 97 96 Oxygen Delivery Mechanical Ventilation Mechanical Ventilation Fraction of Inspired Oxygen 30 30 02/25/25 00:00 02/25/25 00:00 02/25/25 00:00 Temperature 98.1 F Pulse Rate 89 85 Respiratory Rate 26 H Blood Pressure 85/59 L Pulse Oximetry 97 Oxygen Delivery Fraction of Inspired Oxygen 30 02/25/25 00:00 02/25/25 00:27 02/25/25 01:57 Temperature Pulse Rate 85 84 Respiratory Rate 26 H Blood Pressure 124/64 Pulse Oximetry 97 Oxygen Delivery Mechanical Ventilation Fraction of Inspired Oxygen 30 02/25/25 02:00 02/25/25 02:00 02/25/25 02:00 Temperature Pulse Rate 79 79 79 Respiratory Rate 25 H 25 H Blood Pressure 94/56 L Pulse Oximetry 97 Oxygen Delivery Fraction of Inspired Oxygen 02/25/25 02:41 02/25/25 02:41 02/25/25 04:00 Temperature Pulse Rate 82 82 Respiratory Rate 27 H 27 H Blood Pressure Pulse Oximetry 98 Oxygen Delivery Mechanical Ventilation Fraction of Inspired Oxygen 30 02/25/25 04:00 02/25/25 04:00 02/25/25 04:00 Temperature 98.1 F Pulse Rate 83 85 Respiratory Rate 24 H Blood Pressure 121/70 Pulse Oximetry 98 Oxygen Delivery Fraction of Inspired Oxygen 30 02/25/25 04:00 02/25/25 05:05 02/25/25 06:00 Temperature Pulse Rate 83 83 95 Respiratory Rate 24 H Blood Pressure Pulse Oximetry 98 Oxygen Delivery Mechanical Ventilation Fraction of Inspired Oxygen 30 02/25/25 06:00 02/25/25 06:00 02/25/25 08:00 Temperature Pulse Rate 95 95 100 Respiratory Rate 23 H 23 H 33 H Blood Pressure 130/64 Pulse Oximetry 95 Oxygen Delivery Fraction of Inspired Oxygen 02/25/25 08:00 02/25/25 08:00 02/25/25 08:00 Temperature 98.7 F Pulse Rate 119 H 119 H 95 Respiratory Rate 39 H 37 H Blood Pressure 130/73 Pulse Oximetry 97 97 Oxygen Delivery Mechanical Ventilation Fraction of Inspired Oxygen 30 02/25/25 08:05 02/25/25 08:06 02/25/25 09:52 Temperature Pulse Rate 97 Respiratory Rate Blood Pressure Pulse Oximetry 97 Oxygen Delivery Mechanical Ventilation Fraction of Inspired Oxygen 30 30 30 02/25/25 09:54 02/25/25 10:00 02/25/25 10:00 Temperature Pulse Rate 95 92 90 Respiratory Rate 35 H Blood Pressure Pulse Oximetry 98 Oxygen Delivery Mechanical Ventilation Fraction of Inspired Oxygen 30 02/25/25 10:00 02/25/25 10:13 02/25/25 10:27 Temperature Pulse Rate 92 88 Respiratory Rate 35 H Blood Pressure 93/56 L Pulse Oximetry 95 97 Oxygen Delivery Mechanical Ventilation Fraction of Inspired Oxygen 30 30 02/25/25 11:48 02/25/25 12:00 02/25/25 12:00 Temperature 98.8 F Pulse Rate 86 90 90 Respiratory Rate 20 17 22 H Blood Pressure 130/75 Pulse Oximetry 97 98 Oxygen Delivery Mechanical Ventilation Fraction of Inspired Oxygen 30 02/25/25 12:00 02/25/25 12:00 02/25/25 12:11 Temperature Pulse Rate 85 85 Respiratory Rate 17 Blood Pressure Pulse Oximetry Oxygen Delivery Fraction of Inspired Oxygen 30 02/25/25 12:11 02/25/25 12:12 Temperature Pulse Rate 85 94 Respiratory Rate 17 Blood Pressure Pulse Oximetry 98 Oxygen Delivery Mechanical Ventilation Fraction of Inspired Oxygen 30 Intake/Output Intake/Output: Intake & Output 02/22/25 02/23/25 02/24/25 02/25/25 23:59 23:59 23:59 23:59 Intake Total 3963.3 2927.5 4311.2 2344.3 Output Total 3875 1750 3600 1150 Balance 88.3 1177.5 711.2 1194.3 Meds/Results Medications: Active Medications Generic Name Dose Route Start Last Admin Trade Name Freq PRN Reason Stop Dose Admin Acetaminophen 650 mg 02/17/25 20:19 02/24/25 18:13 Acetaminophen 325 Mg Tablet FEED TUBE 650 mg Q4H PRN Administration Mild Pain (1-3) or Fever Alteplase, Recombinant 2 mg 02/21/25 22:45 02/21/25 23:00 Alteplase 2 Mg Vial (Cathflo) IV PUSH 2 mg ONCE PRN Administration Line Occlusion Bisacodyl 10 mg 02/24/25 09:00 02/25/25 08:13 Bisacodyl 10 Mg Suppository RECTAL 10 mg QAM KENNETH Administration Dextrose 12.5 gm 02/17/25 21:35 Dextrose 50% 25 Gm/50 Ml Syringe IV PUSH PRN PRN Hypoglycemia Protocol Folic Acid 1 mg 02/19/25 09:00 02/25/25 08:13 Folic Acid 1 Mg/0.2 Ml Inj IV PUSH 1 mg QAM KENNETH Administration Glucagon 1 mg 02/17/25 21:35 Glucagon For Inj 1 Mg Vial IM PRN PRN Hypoglycemia Protocol Glucose 15 gm 02/17/25 21:35 Glucose Oral Gel 15 Gm Of Glucse In 37.5 Gm Tube PO PRN PRN Hypoglycemia Protocol Heparin Sodium (Porcine) 5,000 units 02/18/25 14:00 02/25/25 13:31 Heparin Sodium 5,000 Units/Ml Vial SUB-Q 5,000 units Q8HR KENNETH Administration Hydralazine HCl 10 mg 02/21/25 19:36 02/22/25 00:00 Hydralazine Hcl 20 Mg/Ml Vial IV PUSH 10 mg Q6H PRN Administration Blood Pressure - High Cefepime HCl 2 gm/ Sodium 50 mls @ 100 mls/hr 02/18/25 06:00 02/25/25 06:13 Chloride IVPB 02/27/25 06:29 Infused Q12H KENNETH Infusion Dextrose 1,000 mls @ 100 mls/hr 02/17/25 21:35 Dextrose 5% 1,000 Ml IVPB PRN PRN Hypoglycemia Protocol Vancomycin HCl 2,000 mg in 500 mls @ 250 mls/hr 02/22/25 00:00 02/25/25 12:18 Vancomycin 2,000 Mg/Ns 500 Ml IVPB 02/26/25 23:59 250 mls/hr Q12H KENNETH Administration Dexmedetomidine HCl 400 mcg in 100 mls @ 6.57 mls/hr 02/22/25 07:40 02/25/25 12:42 Precedex 400 Mcg/100 Ml IV CONT Not Given .[id number] KENNETH Protocol 0.4 MCG/KG/HR Insulin Aspart 3 - 6 units 02/18/25 00:00 02/25/25 11:59 Insulin Aspart (*Bkc) 100 Units/Ml SUB-Q Not Given Q4HR KENNETH Protocol Insulin Glargine 10 units 02/24/25 09:00 02/25/25 08:13 Insulin Glargine (*Bkc) 100 Units/Ml SUB-Q 10 units QAM KENNETH Administration Ipratropium [place] 0.5 mg 02/22/25 07:33 Ipratropium Br 0.02% Inh Soln 0.5 Mg/2.5 Ml Vial INHALATION Q6HRT PRN Wheezing Levalbuterol HCl 0.63 mg 02/22/25 07:33 Levalbuterol Neb 1.25 Mg/3 Ml INHALATION Q6HRT PRN Wheezing Metoclopramide HCl 10 mg 02/19/25 12:00 02/25/25 12:12 Metoclopramide Hcl Inj 10 Mg/2 Ml Vial IV PUSH 10 mg Q6HR KENNETH Administration Multi-Ingred Cream/Lotion/Oil/Oint 1 applic 02/17/25 21:00 02/25/25 08:26 Mineral Oil/White Petrolatum Ointment EACH EYE 1 applic Q12HR KENNETH Administration Multivitamins Therapeutic 1 tablet 02/23/25 10:00 02/25/25 08:13 Multivitamins Therapeutic Tab (*Bkc) FEED TUBE 1 tablet QAM KENNETH Administration Pantoprazole Sodium 40 mg 02/18/25 09:00 02/25/25 08:13 Pantoprazole Sodium Iv 40 Mg Vial IV PUSH 40 mg Q12HR KENNETH Administration Polyethylene Glycol 17 gm 02/21/25 09:00 02/25/25 08:13 Polyethylene Glycol 3350 17 Gm Powd.Pack PO 17 gm QAM KENNETH Administration Senna/Docusate Sodium 1 tab 02/17/25 21:00 02/24/25 20:13 Senna/Docusate Sodium Tablet FEED TUBE 1 tab HS KENNETH Administration Sodium Chloride 10 ml 02/18/25 22:00 02/25/25 13:31 Central Line Flush IV PUSH 10 ml Q8HR KENNETH Administration Sodium Chloride 20 ml 02/18/25 16:07 02/20/25 05:33 Central Line Flush IV PUSH 20 ml PRN PRN Administration after blood draws Thiamine HCl 100 mg 02/19/25 09:00 02/25/25 08:13 Thiamine Hcl 200 Mg/2 Ml Vial IV PUSH 100 mg QAM KENNETH Administration Radiology Results: ITS Impressions Head CT 02/17/25 16:55 IMPRESSION: 1. No acute intracranial hemorrhage. No mass effect. 2. Probable chronic ischemic white matter change. Chest/Abdomen/Pelvis CT 02/17/25 17:11 IMPRESSION: 1. Moderate sized groundglass opacities scattered throughout both lungs most prominent in the lower lobes. In addition, there are small to moderate sized patchy consolidations scattered throughout both lungs most prominent in the lower lobes. The findings are concerning for multilobar pneumonia. Other etiologies are possible but are felt to be less likely. Recommend follow-up to resolution. 2.There is a Daniels catheter in the bladder. Mild concentric thickening of the calvo of the bladder. Small amount of nondependent air in the bladder which may be due to recent instrumentation or cystitis. 3. Large amount of stool in the rectum. 4. The stomach is distended and filled with air. 5. Small amount of fat stranding with a few locules of air about the posterior aspect of the mid and distal sacrum. No obvious loculated fluid collection identified. No convincing CT evidence for sacral osteomyelitis at this time. Abdomen Ultrasound 02/19/25 13:00 Impression: Limited study. No acute process Abdomen X-Ray 02/20/25 10:54 IMPRESSION: 1. No acute abdominal abnormality. 2: Bibasilar infiltrates may represent edema or pneumonia. Renal Ultrasound 02/20/25 17:18 IMPRESSION: 1. Normal kidneys without hydronephrosis. 2. Diffuse trabeculated bladder wall thickening suggestive of sequela of chronic outlet obstruction. Chest X-Ray 02/25/25 07:39 IMPRESSION: 1. Persistent opacity left lower lung zone which could represent atelectasis and/or pneumonia. Labs Labs: Laboratory Results - last 24 hr 02/20/25 02/23/25 02/24/25 12:48 05:24 17:18 WBC RBC Hgb Hct MCV MCH MCHC RDW Plt Count MPV Puncture Site ABG pH ABG pCO2 ABG pO2 ABG PO2/FiO2 Ratio ABG HCO3 ABG O2 Saturation ABG O2 Content ABG Base Excess A-a Gradient Oxyhemoglobin Carboxyhemoglobin Methemoglobin Reduced Hemoglobin Total Hemoglobin O2 Delivery Device O2 Liters/Min Minute Volume Not Reportable Vent Rate Vent Mode FiO2 Tidal Volume 450 PEEP Peak Inspir Pressure Pressure Support Not Reportable Sodium Potassium Chloride Carbon Dioxide Anion Gap BUN Creatinine Estim Creat Clear Calc Estimated GFR Glucose POC Capillary Glucose 156 H Serum Osmolality 336 H Calcium Phosphorus Magnesium Total Bilirubin AST ALT Alkaline Phosphatase Total Protein Albumin Vancomycin Trough 02/24/25 02/25/25 02/25/25 20:12 00:26 04:52 WBC 11.0 H RBC 3.03 L Hgb 8.0 L Hct 25.4 L MCV 83.8 MCH 26.4 MCHC 31.5 L RDW 16.5 H Plt Count 153 MPV 10.1 Puncture Site ABG pH ABG pCO2 ABG pO2 ABG PO2/FiO2 Ratio ABG HCO3 ABG O2 Saturation ABG O2 Content ABG Base Excess A-a Gradient Oxyhemoglobin Carboxyhemoglobin Methemoglobin Reduced Hemoglobin Total Hemoglobin O2 Delivery Device O2 Liters/Min Minute Volume Vent Rate Vent Mode FiO2 Tidal Volume PEEP Peak Inspir Pressure Pressure Support Sodium 147 H Potassium 3.2 L Chloride 118 H Carbon Dioxide 28 Anion Gap 1 L BUN 25 H Creatinine 0.33 L Estim Creat Clear Calc 176 Estimated GFR > 60 Glucose 211 H POC Capillary Glucose 236 H 216 H Serum Osmolality Calcium 7.8 L Phosphorus 2.7 Magnesium 1.9 Total Bilirubin 0.3 AST 37 ALT 64 H Alkaline Phosphatase 171 H Total Protein 5.2 L Albumin 2.2 L Vancomycin Trough 02/25/25 02/25/25 02/25/25 05:17 07:37 10:52 WBC RBC Hgb Hct MCV MCH MCHC RDW Plt Count MPV Puncture Site Right brachial ABG pH 7.508 H* ABG pCO2 30.0 L ABG pO2 77.7 L ABG PO2/FiO2 Ratio 2.59 ABG HCO3 23.3 ABG O2 Saturation 96.7 ABG O2 Content 11.2 L ABG Base Excess 0.6 A-a Gradient 101.0 Oxyhemoglobin 93.8 Carboxyhemoglobin 1.0 Methemoglobin 0.3 Reduced Hemoglobin 4.9 Total Hemoglobin 8.4 L O2 Delivery Device Ventilator O2 Liters/Min Not Reportable Minute Volume Not Reportable Vent Rate 16 Vent Mode Cmv FiO2 30 Tidal Volume 400 PEEP 8 Peak Inspir Pressure Not Reportable Pressure Support Not Reportable Sodium Potassium Chloride Carbon Dioxide Anion Gap BUN Creatinine Estim Creat Clear Calc Estimated GFR Glucose POC Capillary Glucose 203 H Serum Osmolality Calcium Phosphorus Magnesium Total Bilirubin AST ALT Alkaline Phosphatase Total Protein Albumin Vancomycin Trough 18.4 02/25/25 11:56 WBC RBC Hgb Hct MCV MCH MCHC RDW Plt Count MPV Puncture Site ABG pH ABG pCO2 ABG pO2 ABG PO2/FiO2 Ratio ABG HCO3 ABG O2 Saturation ABG O2 Content ABG Base Excess A-a Gradient Oxyhemoglobin Carboxyhemoglobin Methemoglobin Reduced Hemoglobin Total Hemoglobin O2 Delivery Device O2 Liters/Min Minute Volume Vent Rate Vent Mode FiO2 Tidal Volume PEEP Peak Inspir Pressure Pressure Support Sodium Potassium Chloride Carbon Dioxide Anion Gap BUN Creatinine Estim Creat Clear Calc Estimated GFR Glucose POC Capillary Glucose 166 H Serum Osmolality Calcium Phosphorus Magnesium Total Bilirubin AST ALT Alkaline Phosphatase Total Protein Albumin Vancomycin Trough
[2025-02-25 14:23] LABS: Anion Gap 1 mmol/L (4-12); Blood Urea Nitrogen 22 mg/dL (9-20); Calcium 7.8 mg/dL (8.4-10.2); Carbon Dioxide 31 mmol/L (22-30); Chloride 116 mmol/L (98-107); Estimated CRCL calculation 161 ml/min; Estimated Glomerular Filt Rate > 60; Glucose 207 mg/dL (65-110); Potassium 3.4 mmol/L (3.4-5.0); Sodium 148 mmol/L (137-145)
[2025-02-25] MEDS: SENNA/DOCUSATE SODIUM TABLET 1 TAB FEED TUBE (20:06)
[2025-02-25] MEDS: HYOSCYAMINE SULFATE SOLN 0.125 MG/ML ORAL SYRINGE PO (22:40)
[2025-02-26] VITALS (24 sets, daily range): BP systolic 90–161; BP diastolic 49–95; PULSE 75–107; RESP 20–29; TEMP 36.8–37.3; O2SAT 80–100
[2025-02-26] MEDS: VANCOMYCIN 2,000 MG/NS 500 ML 2,000 MG/500 ML BAG 250 MG IVPB ×2 (00:13→12:44)
[2025-02-26] MEDS: METOCLOPRAMIDE HCL INJ 10 MG/2 ML VIAL IV PUSH ×5 (00:13→23:59)
[2025-02-26] MEDS: ACETAMINOPHEN 325 MG TABLET 650 MG FEED TUBE (00:28)
[2025-02-26] MEDS: INSULIN ASPART (*BKC) 100 UNITS/ML SUB-Q ×4 (00:39→16:53)
[2025-02-26] MEDS: dexmedeTOMIDine 400 MCG/100 ML 400 MCG/100 ML BAG 6.57 MCG IV CONT ×2 (02:16→16:22)
[2025-02-26 05:06] LABS: Hematocrit 24.7 % (42.0-52.0); Hemoglobin 7.6 g/dL (14.0-18.0); Mean Corpuscular HGB Conc 30.8 g/dl (32-36); Mean Corpuscular Hemoglobin 26.4 pg (26-34); Mean Corpuscular Volume 85.8 fl (80-100); Platelet Count Result 176 k/mm3 (150-375); Red Blood Count 2.88 M/mm3 (4.6-6.20); White Blood Count 9.6 K/mm3 (4.5-10.0)
[2025-02-26 05:16] LABS: Alveolar/Arterial O2 Gradient 86.3 mmHg; Arterial Blood Gas Tidal Volume 400 ml; Arterial Blood Gas Ventilator rate 16 /MIN; Carboxyhemoglobin 1.1 % THb (0-2.0); Fractional Inspired Oxygen 30 %; HCO3 ABG 26.5 mEq/l (22.0-26.0); Methemoglobin ABG 0.1 %THb (0-1.5); Oxygen Content ABG 11.1 %vol (16.0-22.0); Oxygen Saturation ABG 97.2 % (95.0-100.0); PCO2 ABG 35.7 mmHg (35.0-45.0); PO2 ABG 85.7 mmHg (80.0-100.0); PO2 FiO2 Ratio Arterial Blood 2.86 %; Reduced Hemoglobin 3.7 %THb (0-5.0); Site Drawn RIGHT BRACHIAL
[2025-02-26 05:29] LABS: Alanine Aminotransferase 54 U/L (6-50); Albumin Level 2.1 g/dL (3.5-5.1); Alkaline Phosphatase 168 U/L (38-126); Anion Gap 0 mmol/L (4-12); Aspartate Amino Transferase 42 U/L (17-59); Bilirubin,Total 0.3 mg/dL (0.2-1.3); Blood Urea Nitrogen 22 mg/dL (9-20); Calcium 7.8 mg/dL (8.4-10.2); Carbon Dioxide 30 mmol/L (22-30); Chloride 115 mmol/L (98-107); Estimated CRCL calculation 183 ml/min; Estimated Glomerular Filt Rate > 60; Glucose 223 mg/dL (65-110); Magnesium 1.9 mg/dL (1.6-2.3); Potassium 3.1 mmol/L (3.4-5.0); Sodium 145 mmol/L (137-145); Total Protein 5.2 g/dL (6.3-8.2)
[2025-02-26] MEDS: CENTRAL LINE FLUSH 10 ML IV PUSH ×3 (05:39→20:58)
[2025-02-26] MEDS: CEFEPIME 2 GM in SODIUM CHLORIDE 0.9% IV 50 ML 100 ML IVPB ×2 (06:34→16:53)
[2025-02-26] MEDS: CALCIUM GLUC 2,000 MG/NS 100ML 2,000 MG/100 ML BAG 100 MG IVPB (08:14)
[2025-02-26] MEDS: BISACODYL 10 MG SUPPOSITORY RECTAL (08:15)
[2025-02-26] MEDS: FOLIC ACID 1 MG/0.2 ML INJ IV PUSH (08:15)
[2025-02-26] MEDS: POTASSIUM BICARBONATE 25 MEQ TABEF 50 MEQ PO ×2 (08:15→12:43)
[2025-02-26] MEDS: THIAMINE HCL 200 MG/2 ML VIAL 100 MG IV PUSH (08:16)
[2025-02-26] MEDS: PANTOPRAZOLE SODIUM IV 40 MG VIAL IV PUSH ×2 (08:16→20:52)
[2025-02-26] MEDS: MULTIVITAMINS THERAPEUTIC TAB (*BKC) 1 TABLET FEED TUBE (08:16)
[2025-02-26] MEDS: INSULIN GLARGINE (*BKC) 100 UNITS/ML 10 UNITS SUB-Q (08:18)
--- NOTE | 2025-02-26 08:32 | P.PNINT_ITS ---
Progress Note: A&P Assessment and Plan (1) Septic shock: Code(s): A41.9 - Sepsis, unspecified organism; R65.21 - Severe sepsis with septic shock Status: Acute Assessment and Plan: 02/17: Patient presented from a prison with altered mental status, shortness of breath. Initially had Leukocytosis. Patient did receive 2 L IV fluid bolus in the ER, was transferred to the intermediate Unit and immediately upon arrival to the IMU, rapid response was called due to hypoxia, tachypnea, tachycardia. Patient was transferred to of the ICU -likely etiology pneumonia and UTI -lactic acid normalized in patient is now off of vasopressors -adequately fluid-resuscitated in the ICU -02/17: Preliminary blood cultures are negative x2 -02/17: Urine cultures grew superficial organisms -02/18: Sputum culture growing Klebsiella friend, MRSA and Dolores tropicalis 02/17: Nasal MRSA screen was positive Continue cefepime and vancomycin (02/17), completed course of doxycycline Off IV fluids (2) Acute respiratory failure: Code(s): J96.00 - Acute respiratory failure, unspecified whether with hypoxia or hypercapnia Status: Acute Assessment and Plan: 02/17: Patient was transferred to the ICU from intermediate Unit. He was emergently intubated by ER physician likely cause multifocal pneumonia Patient is on CMV mode of ventilation, peep of 10, 40% FiO2. Decrease PEEP to 8 Chest x-ray and ABGs reviewed, Continue bronchodilators - Xopenex and Atrovent but change to p.r.n. 02/22 Patient awake and following commands but tachypneic with rate in high 30s. When I placed patient on PSV 01/28 patient's respiratory rate was up to 40s. Patient was started on Precedex infusion for anxiolysis and given Lasix 02/238 PSV done again today. RSBI borderline. Patient with increased work of breathing. Will increase pressure support and continue as long as patient tolerates. Will give another dose of Lasix today 02/24 PSV weaning trial was again attempted this morning. High RSBI and re spiratory rate. Patient needed pressure support of 15/8 for adequate RSBI. Patient was then placed on ASV at 80%. It was continued through the day. Patient appears very weak and debilitated. Weaning is going to be difficult and long. Patient may very well need tracheostomy. Will continue working with him daily 02/26 patient placed on PSV again. His tidal volumes are in 200s. She is debilitated and weak. Patient has history of high cervical myelopathy they could be component of diaphragmatic weakness. Even if he is extubated he will not be able to use BiPAP considering he can not even lift his hands off the bed. I anticipate patient will need tracheostomy. Will continue working through the weekend and revisit this with patient's family. Continue daily assessment for SBT Treatment of pneumonia as above 02/17: CT chest, abdomen and pelvis IMPRESSION: 1. Moderate sized groundglass opacities scattered throughout both lungs most prominent in the lower lobes. In addition, there are small to moderate sized patchy consolidations scattered throughout both lungs most prominent in the lower lobes. The findings are concerning for multilobar pneumonia. Other etiologies are possible but are felt to be less likely. Recommend follow-up to resolution. 2.There is a Daniels catheter in the bladder. Mild concentric thickening of the calvo of the bladder. Small amount of nondependent air in the bladder which may be due to recent instrumentation or cystitis. 3. Large amount of stool in the rectum. 4. The stomach is distended and filled with air. 5. Small amount of fat stranding with a few locules of air about the posterior aspect of the mid and distal sacrum. No obvious loculated fluid collection identified. No convincing CT evidence for sacral osteomyelitis at this time. (3) Multifocal pneumonia: Code(s): J18.8 - Other pneumonia, unspecified organism Status: Acute Assessment and Plan: Multifocal pneumonia Continue treatment as above (4) Acute UTI: Code(s): N39.0 - Urinary tract infection, site not specified Status: Acute Assessment and Plan: UA was positive for UTI, -continue antibiotics as above (5) Diabetes: Code(s): E11.9 - Type 2 diabetes mellitus without complications Status: Acute Assessment and Plan: Accu-Cheks and sliding scale insulin (6) Sacral ulcer: Code(s): L98.429 - Non-pressure chronic ulcer of back with unspecified severity Status: Acute Assessment and Plan: Patient has a sacral ulcer -appreciate wound care evaluation and recommendations 02/17: CT abdomen and pelvis: Small amount of fat stranding with a few locules of air about the posterior aspect of the mid and distal sacrum. No obvious loculated fluid collection identified. No convincing CT evidence for sacral osteomyelitis at this time. (7) Metabolic acidosis: Code(s): E87.20 - Acidosis, unspecified Status: Acute Assessment and Plan: Patient with metabolic acidosis, hypernatremia, hypophosphatemia, hypokalemia -elevated beta hydroxybutyrate, urine positive for protein, glucose and ketones -most likely related to starvation ketoacidosis causing metabolic acidosis -improved (8) Severe protein-calorie malnutrition: Code(s): E43 - Unspecified severe protein-calorie malnutrition Status: Acute Assessment and Plan: According to the niece patient has lost lot of weight since August 2024, initially she stated he unable to feed himself due to his neuropathy and was not being adequately fed at the prison, after this surgery and when he was able to move his arms he stated he was not eating well because he was not hungry. -patient's BMI is 18.3, given his height, age, gender he does classify into severe protein calorie malnutrition -appreciate dietitian evaluation recommendations -continue tube feeds. Advance to goal today -continue thiamine and folic acid. Contain MVI -continue Reglan (9) Electrolyte imbalance: Code(s): E87.8 - Other disorders of electrolyte and fluid balance, not elsewhere classified Status: Acute Assessment and Plan: Hypernatremia improved. Off D5 water. Continue increased free water flushes Replace low potassium Nephrology following (10) Constipation: Code(s): K59.00 - Constipation, unspecified Status: Acute Assessment and Plan: Large amount of stool in the rectal vault as seen on the CT scan of the abdomen and pelvis -patient has not had a bowel movement -02/20: Soapsuds enema was given without much improved -patient was given lactulose enema -continue MiraLax, bisacodyl and senna S -patient is having bowel movements now (11) Weakness: Code(s): R53.1 - Weakness Status: Acute Assessment and Plan: Patient had cervical myelopathy and had some ankle surgery with fusion and instrumentation early this year since then patient has been mostly bedbound. Family states the patient was already seen in prison in the bed and few times a wheelchair. He has significant weakness in both arms and legs. They also state that he had poor p.o. intake and had trouble and difficulty with the eating. Plan DVT prophylaxis: Heparin subQ Stress ulcer prophylaxis: Protonix Nutrition: Continue tube feeds at goal of 70 mL/hour Code Status: Full code Critical Care Time Spent: 30 minutes Due to a high probability of clinically significant, life threatening deterioration, the patient required my highest level of preparedness to intervene emergently and I personally spent this critical care time directly and personally managing the patient. This critical care time included obtaining a history; examining the patient; pulse oximetry; ordering and review of studies; arranging urgent treatment with development of a management plan; evaluation of patient's response to treatment; frequent reassessment; and discussions with other providers. It was exclusive of separately billable procedures and treating other patients and teaching time. Please see Assessment and Plan section and the rest of the note for further information on patient assessment and treatment This dictation may have been done utilizing a voice recognition system. Attempts have been made to correct errors. However, there may be uncorrected grammatical, spelling, and recognitions errors present. Subjective Date/time seen: 02/26/25 Overnight events reviewed. Afebrile Continues to be on mechanical ventilation 35% FiO2 Continues to be sedated with low-dose Precedex Tolerating tube feeds at goal. Other Vitals acceptable Interval history: Reason for consult: Septic shock, acute respiratory failure, pneumonia, UTI, lactic acidosis, altered mental status 64yo male with HLD, DM and Asthma who presents with altered mental status and hypoxia from his prison. Rapid response called once patient arrived to IMU for being hypoxic. Transferred to the ICU and emergently intubated by ER physician Review of Systems Review of Systems: ROS unobtainable: Yes unobtainable due to endotracheal tube, unobtainable due to medical condition and unobtainable due to mental sta tus Exam Narrative: General: intubated and sedated, in no acute distress HEENT:? Pupils equal and reactive, sclera is clear, ETT in place Neck:? Supple Respiratory:? Coarse breath sounds bilaterally, decreased at bases, no wheezing, adequate air entry Cardiac:? S1-S2 is normal, sinus tachycardia Abdomen:? Scaphoid abdomen, soft, nontender, hypoactive bowel sounds, patient cachectic and malnourished, patient has a sacral decubitus ulcer Extremities:? No edema, decreased pedal pulses Neuro:? Patient is intubated, off sedation, opens his eyes to name and follows simple commands with all 4 extremities but appears to be very weak, PERRL Skin:? old healing ulcers on the feet bilaterally Psych:? Unable to assess at this time Objective Data Vital Signs Vital Signs: Vital Signs - 24 hr 02/25/25 09:52 02/25/25 09:54 02/25/25 10:00 Temperature Pulse Rate 95 92 Respiratory Rate 35 H Blood Pressure Pulse Oximetry 98 Oxygen Delivery Mechanical Ventilation Fraction of Inspired Oxygen 30 30 02/25/25 10:00 02/25/25 10:00 02/25/25 10:13 Temperature Pulse Rate 90 92 Respiratory Rate 35 H Blood Pressure 93/56 L Pulse Oximetry 95 Oxygen Delivery Fraction of Inspired Oxygen 30 02/25/25 10:27 02/25/25 11:48 02/25/25 12:00 Temperature Pulse Rate 88 86 90 Respiratory Rate 20 17 Blood Pressure Pulse Oximetry 97 97 Oxygen Delivery Mechanical Ventilation Mechanical Ventilation Fraction of Inspired Oxygen 30 30 02/25/25 12:00 02/25/25 12:00 02/25/25 12:00 Temperature 37.1 C Pulse Rate 90 85 Respiratory Rate 22 H Blood Pressure 130/75 Pulse Oximetry 98 Oxygen Delivery Fraction of Inspired Oxygen 30 02/25/25 12:11 02/25/25 12:11 02/25/25 12:12 Temperature Pulse Rate 85 85 94 Respiratory Rate 17 17 Blood Pressure Pulse Oximetry 98 Oxygen Delivery Mechanical Ventilation Fraction of Inspired Oxygen 30 02/25/25 14:00 02/25/25 14:00 02/25/25 14:00 Temperature Pulse Rate 88 90 88 Respiratory Rate 11 L 11 L Blood Pressure 104/63 Pulse Oximetry 97 Oxygen Delivery Fraction of Inspired Oxygen 02/25/25 14:46 02/25/25 16:00 02/25/25 16:00 Temperature Pulse Rate 80 86 Respiratory Rate 19 Blood Pressure Pulse Oximetry 98 97 Oxygen Delivery Mechanical Ventilation Mechanical Ventilation Fraction of Inspired Oxygen 30 30 30 02/25/25 16:00 02/25/25 16:00 02/25/25 17:29 Temperature 37.2 C Pulse Rate 86 84 89 Respiratory Rate 22 H Blood Pressure 98/61 L Pulse Oximetry 97 97 Oxygen Delivery Mechanical Ventilation Fraction of Inspired Oxygen 30 02/25/25 18:00 02/25/25 18:00 02/25/25 18:00 Temperature Pulse Rate 87 87 87 Respiratory Rate 19 21 H Blood Pressure 129/65 Pulse Oximetry 97 Oxygen Delivery Fraction of Inspired Oxygen 02/25/25 19:44 02/25/25 20:00 02/25/25 20:00 Temperature 36.8 C Pulse Rate 83 83 Respiratory Rate 15 17 Blood Pressure 132/72 Pulse Oximetry 96 Oxygen Delivery Fraction of Inspired Oxygen 30 02/25/25 20:00 02/25/25 20:08 02/25/25 22:00 Temperature Pulse Rate 87 86 89 Respiratory Rate 22 H Blood Pressure Pulse Oximetry 97 Oxygen Delivery Mechanical Ventilation Fraction of Inspired Oxygen 30 02/25/25 22:00 02/25/25 22:00 02/25/25 23:25 Temperature 36.7 C Pulse Rate 89 89 89 Respiratory Rate 23 H Blood Pressure 109/59 L Pulse Oximetry 98 98 Oxygen Delivery Mechanical Ventilation Fraction of Inspired Oxygen 30 02/26/25 00:00 02/26/25 00:00 02/26/25 00:00 Temperature 37.2 C Pulse Rate 85 85 Respiratory Rate 25 H 25 H Blood Pressure 110/61 Pulse Oximetry 96 Oxygen Delivery Fraction of Inspired Oxygen 30 02/26/25 00:00 02/26/25 00:28 02/26/25 02:00 Temperature 37.2 C Pulse Rate 84 81 Respiratory Rate Blood Pressure Pulse Oximetry Oxygen Delivery Fraction of Inspired Oxygen 02/26/25 02:00 02/26/25 02:00 02/26/25 02:16 Temperature 36.9 C Pulse Rate 81 81 85 Respiratory Rate 24 H 24 H 24 H Blood Pressure 112/63 Pulse Oximetry 98 Oxygen Delivery Fraction of Inspired Oxygen 02/26/25 02:16 02/26/25 02:24 02/26/25 02:30 Temperature Pulse Rate 85 84 Respiratory Rate 24 H Blood Pressure Pulse Oximetry 99 Oxygen Delivery Mechanical Ventilation Fraction of Inspired Oxygen 30 30 02/26/25 04:00 02/26/25 04:00 02/26/25 04:00 Temperature 37.0 C Pulse Rate 76 76 Respiratory Rate 24 H Blood Pressure 106/61 Pulse Oximetry 98 Oxygen Delivery Fraction of Inspired Oxygen 30 02/26/25 04:00 02/26/25 05:05 02/26/25 06:00 Temperature Pulse Rate 76 81 81 Respiratory Rate 24 H Blood Pressure Pulse Oximetry 97 Oxygen Delivery Mechanical Ventilation Fraction of Inspired Oxygen 30 02/26/25 06:00 02/26/25 06:00 02/26/25 07:22 Temperature 36.8 C Pulse Rate 81 81 83 Respiratory Rate 22 H 22 H Blood Pressure 103/61 Pulse Oximetry 98 98 Oxygen Delivery Mechanical Ventilation Fraction of Inspired Oxygen 30 02/26/25 08:06 Temperature Pulse Rate 92 Respiratory Rate Blood Pressure Pulse Oximetry 97 Oxygen Delivery Mechanical Ventilation Fraction of Inspired Oxygen 30 Intake/Output Intake/Output: Intake & Output 02/23/25 02/24/25 02/25/25 02/26/25 23:59 23:59 23:59 23:59 Intake Total 2927.5 4311.2 4570.7 2411.5 Output Total 1750 3600 2800 1075 Balance 1177.5 711.2 1770.7 1336.5 Meds/Results Medications: Active Medications Generic Name Dose Route Start Last Admin Trade Name Freq PRN Reason Stop Dose Admin Acetaminophen 650 mg 02/17/25 20:19 02/26/25 00:28 Acetaminophen 325 Mg Tablet FEED TUBE 650 mg Q4H PRN Administration Mild Pain (1-3) or Fever Alteplase, Recombinant 2 mg 02/21/25 22:45 02/21/25 23:00 Alteplase 2 Mg Vial (Cathflo) IV PUSH 2 mg ONCE PRN Administration Line Occlusion Bisacodyl 10 mg 02/24/25 09:00 02/25/25 08:13 Bisacodyl 10 Mg Suppository RECTAL 10 mg QAM KENNETH Administration Dextrose 12.5 gm 02/17/25 21:35 Dextrose 50% 25 Gm/50 Ml Syringe IV PUSH PRN PRN Hypoglycemia Protocol Folic Acid 1 mg 02/19/25 09:00 02/25/25 08:13 Folic Acid 1 Mg/0.2 Ml Inj IV PUSH 1 mg QAM KENNETH Administration Furosemide 80 mg 02/26/25 14:00 Furosemide Inj 100 Mg/10 Ml Vial IV PUSH 02/26/25 14:01 ONCE ONE Glucagon 1 mg 02/17/25 21:35 Glucagon For Inj 1 Mg Vial IM PRN PRN Hypoglycemia Protocol Glucose 15 gm 02/17/25 21:35 Glucose Oral Gel 15 Gm Of Glucse In 37.5 Gm Tube PO PRN PRN Hypoglycemia Protocol Heparin Sodium (Porcine) 5,000 units 02/18/25 14:00 02/26/25 06:34 Heparin Sodium 5,000 Units/Ml Vial SUB-Q 5,000 units Q8HR KENNETH Administration Hydralazine HCl 10 mg 02/21/25 19:36 02/22/25 00:00 Hydralazine Hcl 20 Mg/Ml Vial IV PUSH 10 mg Q6H PRN Administration Blood Pressure - High Hyoscyamine 0.125 mg 02/25/25 22:25 02/25/25 22:40 Hyoscyamine Sulfate Soln 0.125 Mg/Ml Oral Syringe PO 0.125 mg Q4H PRN Administration Abdominal Cramping Cefepime HCl 2 gm/ Sodium 50 mls @ 100 mls/hr 02/18/25 06:00 02/26/25 06:34 Chloride IVPB 02/27/25 06:29 100 mls/hr Q12H KENNETH Administration Dextrose 1,000 mls @ 100 mls/hr 02/17/25 21:35 Dextrose 5% 1,000 Ml IVPB PRN PRN Hypoglycemia Protocol Vancomycin HCl 2,000 mg in 500 mls @ 250 mls/hr 02/22/25 00:00 02/26/25 02:15 Vancomycin 2,000 Mg/Ns 500 Ml IVPB 02/26/25 23:59 Infused Q12H KENNETH Infusion Dexmedetomidine HCl 400 mcg in 100 mls @ 6.57 mls/hr 02/22/25 07:40 02/26/25 06:00 Precedex 400 Mcg/100 Ml IV CONT 0.4 mcg/kg/hr .[id number] KENNETH 6.57 mls/hr Protocol Titration 0.4 MCG/KG/HR Calcium Gluconate 2,000 mg in 100 mls @ 100 mls/hr 02/26/25 08:00 Calcium Gluc 2,000 Mg/Ns 100ml IVPB 02/26/25 08:59 ONCE ONE Insulin Aspart 3 - 6 units 02/18/25 00:00 02/26/25 05:38 Insulin Aspart (*Bkc) 100 Units/Ml SUB-Q 3 units Q4HR KENNETH Administration Protocol Insulin Glargine 10 units 02/24/25 09:00 02/25/25 08:13 Insulin Glargine (*Bkc) 100 Units/Ml SUB-Q 10 units QAM KENNETH Administration Ipratropium [place] 0.5 mg 02/22/25 07:33 Ipratropium Br 0.02% Inh Soln 0.5 Mg/2.5 Ml Vial INHALATION Q6HRT PRN Wheezing Levalbuterol HCl 0.63 mg 02/22/25 07:33 Levalbuterol Neb 1.25 Mg/3 Ml INHALATION Q6HRT PRN Wheezing Metoclopramide HCl 10 mg 02/19/25 12:00 02/26/25 06:34 Metoclopramide Hcl Inj 10 Mg/2 Ml Vial IV PUSH 10 mg Q6HR KENNETH Administration Multi-Ingred Cream/Lotion/Oil/Oint 1 applic 02/17/25 21:00 02/25/25 20:06 Mineral Oil/White Petrolatum Ointment EACH EYE 1 applic Q12HR KENNETH Administration Multivitamins Therapeutic 1 tablet 02/23/25 10:00 02/25/25 08:13 Multivitamins Therapeutic Tab (*Bkc) FEED TUBE 1 tablet QAM KENNETH Administration Pantoprazole Sodium 40 mg 02/18/25 09:00 02/25/25 20:05 Pantoprazole Sodium Iv 40 Mg Vial IV PUSH 40 mg Q12HR KENNETH Administration Polyethylene Glycol 17 gm 02/21/25 09:00 02/25/25 08:13 Polyethylene Glycol 3350 17 Gm Powd.Pack PO 17 gm QAM KENNETH Administration Potassium Bicarbonate 50 meq 02/26/25 08:00 Potassium Bicarbonate 25 Meq Tabef PO 02/26/25 12:01 Q4H KENNETH Senna/Docusate Sodium 1 tab 02/17/25 21:00 02/25/25 20:06 Senna/Docusate Sodium Tablet FEED TUBE 1 tab HS KENNETH Administration Sodium Chloride 10 ml 02/18/25 22:00 02/26/25 05:39 Central Line Flush IV PUSH 10 ml Q8HR KENNETH Administration Sodium Chloride 20 ml 02/18/25 16:07 02/20/25 05:33 Central Line Flush IV PUSH 20 ml PRN PRN Administration after blood draws Thiamine HCl 100 mg 02/19/25 09:00 02/25/25 08:13 Thiamine Hcl 200 Mg/2 Ml Vial IV PUSH 100 mg QAM KENNETH Administration Radiology Results: ITS Impressions Head CT 02/17/25 16:55 IMPRESSION: 1. No acute intracranial hemorrhage. No mass effect. 2. Probable chronic ischemic white matter change. Chest/Abdomen/Pelvis CT 02/17/25 17:11 IMPRESSION: 1. Moderate sized groundglass opacities scattered throughout both lungs most prominent in the lower lobes. In addition, there are small to moderate sized patchy consolidations scattered throughout both lungs most prominent in the lower lobes. The findings are concerning for multilobar pneumonia. Other etiologies are possible but are felt to be less likely. Recommend follow-up to resolution. 2.There is a Daniels catheter in the bladder. Mild concentric thickening of the calvo of the bladder. Small amount of nondependent air in the bladder which may be due to recent instrumentation or cystitis. 3. Large amount of stool in the rectum. 4. The stomach is distended and filled with air. 5. Small amount of fat stranding with a few locules of air about the posterior aspect of the mid and distal sacrum. No obvious loculated fluid collection identified. No convincing CT evidence for sacral osteomyelitis at this time. Abdomen Ultrasound 02/19/25 13:00 Impression: Limited study. No acute process Abdomen X-Ray 02/20/25 10:54 IMPRESSION: 1. No acute abdominal abnormality. 2: Bibasilar infiltrates may represent edema or pneumonia. Renal Ultrasound 02/20/25 17:18 IMPRESSION: 1. Normal kidneys without hydronephrosis. 2. Diffuse trabeculated bladder wall thickening suggestive of sequela of chronic outlet obstruction. Labs Labs: Laboratory Results - last 24 hr 02/23/25 02/25/25 02/25/25 05:24 10:52 11:56 WBC RBC Hgb Hct MCV MCH MCHC RDW Plt Count MPV Puncture Site ABG pH ABG pCO2 ABG pO2 ABG PO2/FiO2 Ratio ABG HCO3 ABG O2 Saturation ABG O2 Content ABG Base Excess A-a Gradient Oxyhemoglobin Carboxyhemoglobin Methemoglobin Reduced Hemoglobin Total Hemoglobin O2 Delivery Device O2 Liters/Min Minute Volume Not Reportable Vent Rate Vent Mode FiO2 Tidal Volume 450 PEEP Peak Inspir Pressure Pressure Support Not Reportable Sodium Potassium Chloride Carbon Dioxide Anion Gap BUN Creatinine Estim Creat Clear Calc Estimated GFR Glucose POC Capillary Glucose 166 H Calcium Phosphorus Magnesium Total Bilirubin AST ALT Alkaline Phosphatase Total Protein Albumin Vancomycin Trough 18.4 02/25/25 02/25/25 02/25/25 13:50 16:41 19:42 WBC RBC Hgb Hct MCV MCH MCHC RDW Plt Count MPV Puncture Site ABG pH ABG pCO2 ABG pO2 ABG PO2/FiO2 Ratio ABG HCO3 ABG O2 Saturation ABG O2 Content ABG Base Excess A-a Gradient Oxyhemoglobin Carboxyhemoglobin Methemoglobin Reduced Hemoglobin Total Hemoglobin O2 Delivery Device O2 Liters/Min Minute Volume Vent Rate Vent Mode FiO2 Tidal Volume PEEP Peak Inspir Pressure Pressure Support Sodium 148 H Potassium 3.4 Chloride 116 H Carbon Dioxide 31 H Anion Gap 1 L BUN 22 H Creatinine 0.36 L Estim Creat Clear Calc 161 Estimated GFR > 60 Glucose 207 H POC Capillary Glucose 173 H 170 H Calcium 7.8 L Phosphorus Magnesium Total Bilirubin AST ALT Alkaline Phosphatase Total Protein Albumin Vancomycin Trough 02/26/25 02/26/25 02/26/25 00:36 04:58 05:00 WBC 9.6 RBC 2.88 L Hgb 7.6 L Hct 24.7 L MCV 85.8 MCH 26.4 MCHC 30.8 L RDW 16.4 H Plt Count 176 MPV 10.3 Puncture Site ABG pH ABG pCO2 ABG pO2 ABG PO2/FiO2 Ratio ABG HCO3 ABG O2 Saturation ABG O2 Content ABG Base Excess A-a Gradient Oxyhemoglobin Carboxyhemoglobin Methemoglobin Reduced Hemoglobin Total Hemoglobin O2 Delivery Device O2 Liters/Min Minute Volume Vent Rate Vent Mode FiO2 Tidal Volume PEEP Peak Inspir Pressure Pressure Support Sodium 145 Potassium 3.1 L Chloride 115 H Carbon Dioxide 30 Anion Gap 0 L BUN 22 H Creatinine 0.31 L Estim Creat Clear Calc 183 Estimated GFR > 60 Glucose 223 H POC Capillary Glucose 208 H Calcium 7.8 L Phosphorus 2.6 Magnesium 1.9 Total Bilirubin 0.3 AST 42 ALT 54 H Alkaline Phosphatase 168 H Total Protein 5.2 L Albumin 2.1 L Vancomycin Trough 02/26/25 02/26/25 05:01 07:59 WBC RBC Hgb Hct MCV MCH MCHC RDW Plt Count MPV Puncture Site Right brachial ABG pH 7.489 H ABG pCO2 35.7 ABG pO2 85.7 ABG PO2/FiO2 Ratio 2.86 ABG HCO3 26.5 H ABG O2 Saturation 97.2 ABG O2 Content 11.1 L ABG Base Excess 3.1 A-a Gradient 86.3 Oxyhemoglobin 95.1 Carboxyhemoglobin 1.1 Methemoglobin 0.1 Reduced Hemoglobin 3.7 Total Hemoglobin 8.2 L O2 Delivery Device Ventilator O2 Liters/Min Not Reportable Minute Volume Not Reportable Vent Rate 16 Vent Mode Cmv FiO2 30 Tidal Volume 400 PEEP 5 Peak Inspir Pressure Not Reportable Pressure Support Not Reportable Sodium Potassium Chloride Carbon Dioxide Anion Gap BUN Creatinine Estim Creat Clear Calc Estimated GFR Glucose POC Capillary Glucose 205 H Calcium Phosphorus Magnesium Total Bilirubin AST ALT Alkaline Phosphatase Total Protein Albumin Vancomycin Trough Quality VTE Prophylaxis VTE prophylaxis: pharmacologic ordered
[2025-02-26] MEDS: FUROSEMIDE INJ 100 MG/10 ML VIAL 80 MG IV PUSH (14:26)
--- NOTE | 2025-02-26 15:39 | PM.IMPN ---
Progress Note: A&P Assessment and Plan (1) Severe protein-calorie malnutrition: Code(s): E43 - Unspecified severe protein-calorie malnutrition Status: Acute (2) Septic shock: Code(s): A41.9 - Sepsis, unspecified organism; R65.21 - Severe sepsis with septic shock Status: Acute (3) Pneumonia: Code(s): J18.9 - Pneumonia, unspecified organism Status: Acute (4) Acute respiratory failure: Code(s): J96.00 - Acute respiratory failure, unspecified whether with hypoxia or hypercapnia Status: Acute (5) Acute UTI: Code(s): N39.0 - Urinary tract infection, site not specified Status: Acute Plan Patient presented with altered mental status shortness of breath. Initially had leukocytosis received IV fluid resuscitation and was transferred to IMU however immediately upon arrival to IMU rapid response was called due to hypoxia tachypnea tachycardia was transferred to ICU. Septic shock requiring vasopressors which now off. Preliminary blood cultures negative x2. Urine culture grew use superficial organisms. Sputum culture grew Klebsiella MRSA and Dolores tropicalis. Nasal MRSA was positive. On cefepime and vancomycin since 02/17. Completed course of doxycycline Acute respiratory failure emergently intubated likely secondary to multifocal pneumonia. 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 Small to moderate-sized patchy consultation scattered throughout both lungs most prominent in the lower lobes. Finding concerning for multi low over pneumonia. Multifocal pneumonia as noted above UTI Type 2 diabetes SSI Sacral decubitus ulcer continue wound care. CT negative for osteomyelitis Metabolic acidosis Protein calorie mild nutrition on tube feeds MVI thiamine folic acid Electrolyte imbalance continue to monitor Constipation large amount of stool in rectal vault S in the CT of the abdomen pelvis. Needed enema now resolved Generalized weakness History of cervical myelopathy DVT prophylaxis heparin subQ Nutrition tube feed Code status full code Subjective Date/time seen: 02/26/25 15:39 Interval history: Patient went on SBT trial this a.m.. Did not tolerate much and back on full support now. Tolerating tube feeds. On low-dose Precedex. Awake and alert on vent Review of Systems Review of Systems: ROS unobtainable: Yes unobtainable due to endotracheal tube Exam Narrative: General: intubated, in no acute distress HEENT:? Pupils equal and reactive, sclera is clear, ETT in place Neck:? Supple Respiratory:? Coarse breath sounds bilaterally, decreased at bases, no wheezing, adequate air entry Cardiac:? S1-S2 is normal, Abdomen:? Scaphoid abdomen, soft, nontender, hypoactive bowel sounds, patient cachectic and malnourished, patient has a sacral decubitus ulcer Extremities:? No edema, decreased pedal pulses Neuro:? Patient is intubated, off sedation, opens his eyes to name and follows simple commands with all 4 extremities but appears to be very weak, PERRL Skin:? old healing ulcers on the feet bilaterally Psych:? Unable to assess at this time Objective Data Vital Signs Vital Signs: Vital Signs - 24 hr 02/25/25 16:00 02/25/25 16:00 02/25/25 16:00 Temperature 99 F Pulse Rate 86 86 Respiratory Rate 19 22 H Blood Pressure 98/61 L Pulse Oximetry 97 97 Oxygen Delivery Mechanical Ventilation Fraction of Inspired Oxygen 30 30 02/25/25 16:00 02/25/25 17:29 02/25/25 18:00 Temperature Pulse Rate 84 89 87 Respiratory Rate 19 Blood Pressure Pulse Oximetry 97 Oxygen Delivery Mechanical Ventilation Fraction of Inspired Oxygen 30 02/25/25 18:00 02/25/25 18:00 02/25/25 19:44 Temperature 98.2 F Pulse Rate 87 87 83 Respiratory Rate 21 H 15 Blood Pressure 129/65 132/72 Pulse Oximetry 97 96 Oxygen Delivery Fraction of Inspired Oxygen 02/25/25 20:00 02/25/25 20:00 02/25/25 20:00 Temperature Pulse Rate 83 87 Respiratory Rate 17 Blood Pressure Pulse Oximetry Oxygen Delivery Fraction of Inspired Oxygen 30 02/25/25 20:08 02/25/25 22:00 02/25/25 22:00 Temperature 98.0 F Pulse Rate 86 89 89 Respiratory Rate 22 H 23 H Blood Pressure 109/59 L Pulse Oximetry 97 98 Oxygen Delivery Mechanical Ventilation Fraction of Inspired Oxygen 30 02/25/25 22:00 02/25/25 23:25 02/26/25 00:00 Temperature Pulse Rate 89 89 85 Respiratory Rate 25 H Blood Pressure Pulse Oximetry 98 Oxygen Delivery Mechanical Ventilation Fraction of Inspired Oxygen 30 02/26/25 00:00 02/26/25 00:00 02/26/25 00:00 Temperature 99 F Pulse Rate 85 84 Respiratory Rate 25 H Blood Pressure 110/61 Pulse Oximetry 96 Oxygen Delivery Fraction of Inspired Oxygen 30 02/26/25 00:28 02/26/25 02:00 02/26/25 02:00 Temperature 99 F 98.4 F Pulse Rate 81 81 Respiratory Rate 24 H Blood Pressure 112/63 Pulse Oximetry 98 Oxygen Delivery Fraction of Inspired Oxygen 02/26/25 02:00 02/26/25 02:16 02/26/25 02:16 Temperature Pulse Rate 81 85 85 Respiratory Rate 24 H 24 H 24 H Blood Pressure Pulse Oximetry Oxygen Delivery Fraction of Inspired Oxygen 02/26/25 02:24 02/26/25 02:30 02/26/25 04:00 Temperature Pulse Rate 84 Respiratory Rate Blood Pressure Pulse Oximetry 99 Oxygen Delivery Mechanical Ventilation Fraction of Inspired Oxygen 30 30 30 02/26/25 04:00 02/26/25 04:00 02/26/25 04:00 Temperature 98.6 F Pulse Rate 76 76 76 Respiratory Rate 24 H 24 H Blood Pressure 106/61 Pulse Oximetry 98 Oxygen Delivery Fraction of Inspired Oxygen 02/26/25 05:05 02/26/25 06:00 02/26/25 06:00 Temperature 98.3 F Pulse Rate 81 81 81 Respiratory Rate 22 H Blood Pressure 103/61 Pulse Oximetry 97 98 Oxygen Delivery Mechanical Ventilation Fraction of Inspired Oxygen 30 02/26/25 06:00 02/26/25 07:22 02/26/25 08:00 Temperature Pulse Rate 81 83 90 Respiratory Rate 22 H 29 H Blood Pressure Pulse Oximetry 98 97 Oxygen Delivery Mechanical Ventilation Mechanical Ventilation Fraction of Inspired Oxygen 30 30 02/26/25 08:00 02/26/25 08:00 02/26/25 08:00 Temperature 98.6 F Pulse Rate 90 90 Respiratory Rate 29 H Blood Pressure 129/71 Pulse Oximetry 97 Oxygen Delivery Fraction of Inspired Oxygen 30 02/26/25 08:00 02/26/25 08:06 02/26/25 10:00 Temperature Pulse Rate 79 92 97 Respiratory Rate 23 H Blood Pressure Pulse Oximetry 97 Oxygen Delivery Mechanical Ventilation Fraction of Inspired Oxygen 30 02/26/25 10:00 02/26/25 10:00 02/26/25 10:30 Temperature Pulse Rate 97 83 Respiratory Rate 24 H 26 H Blood Pressure 161/95 H Pulse Oximetry 96 Oxygen Delivery Mechanical Ventilation Fraction of Inspired Oxygen 02/26/25 11:19 02/26/25 12:00 02/26/25 12:00 Temperature Pulse Rate 89 100 88 Respiratory Rate 24 H Blood Pressure Pulse Oximetry 97 98 Oxygen Delivery Mechanical Ventilation Mechanical Ventilation Fraction of Inspired Oxygen 30 30 02/26/25 12:00 02/26/25 12:00 02/26/25 12:00 Temperature 98.3 F Pulse Rate 88 81 Respiratory Rate 26 H 24 H Blood Pressure 112/69 Pulse Oximetry 97 Oxygen Delivery Fraction of Inspired Oxygen 30 02/26/25 14:00 02/26/25 14:00 02/26/25 14:00 Temperature Pulse Rate 80 80 79 Respiratory Rate 23 H 20 Blood Pressure 97/59 L Pulse Oximetry 97 Oxygen Delivery Fraction of Inspired Oxygen 02/26/25 14:32 Temperature Pulse Rate 83 Respiratory Rate Blood Pressure Pulse Oximetry 98 Oxygen Delivery Mechanical Ventilation Fraction of Inspired Oxygen 30 Intake/Output Intake/Output: Intake & Output 02/23/25 02/24/25 02/25/25 02/26/25 23:59 23:59 23:59 23:59 Intake Total 2927.5 4311.2 4570.7 2513.9 Output Total 1750 3600 2800 2175 Balance 1177.5 711.2 1770.7 338.9 Meds/Results Medications: Active Medications Generic Name Dose Route Start Last Admin Trade Name Freq PRN Reason Stop Dose Admin Acetaminophen 650 mg 02/17/25 20:19 02/26/25 00:28 Acetaminophen 325 Mg Tablet FEED TUBE 650 mg Q4H PRN Administration Mild Pain (1-3) or Fever Alteplase, Recombinant 2 mg 02/21/25 22:45 02/21/25 23:00 Alteplase 2 Mg Vial (Cathflo) IV PUSH 2 mg ONCE PRN Administration Line Occlusion Bisacodyl 10 mg 02/24/25 09:00 02/26/25 08:15 Bisacodyl 10 Mg Suppository RECTAL 10 mg QAM KENNETH Administration Dextrose 12.5 gm 02/17/25 21:35 Dextrose 50% 25 Gm/50 Ml Syringe IV PUSH PRN PRN Hypoglycemia Protocol Folic Acid 1 mg 02/19/25 09:00 02/26/25 08:15 Folic Acid 1 Mg/0.2 Ml Inj IV PUSH 1 mg QAM KENNETH Administration Glucagon 1 mg 02/17/25 21:35 Glucagon For Inj 1 Mg Vial IM PRN PRN Hypoglycemia Protocol Glucose 15 gm 02/17/25 21:35 Glucose Oral Gel 15 Gm Of Glucse In 37.5 Gm Tube PO PRN PRN Hypoglycemia Protocol Heparin Sodium (Porcine) 5,000 units 02/18/25 14:00 02/26/25 14:26 Heparin Sodium 5,000 Units/Ml Vial SUB-Q 5,000 units Q8HR KENNETH Administration Hydralazine HCl 10 mg 02/21/25 19:36 02/22/25 00:00 Hydralazine Hcl 20 Mg/Ml Vial IV PUSH 10 mg Q6H PRN Administration Blood Pressure - High Hyoscyamine 0.125 mg 02/25/25 22:25 02/25/25 22:40 Hyoscyamine Sulfate Soln 0.125 Mg/Ml Oral Syringe PO 0.125 mg Q4H PRN Administration Abdominal Cramping Cefepime HCl 2 gm/ Sodium 50 mls @ 100 mls/hr 02/18/25 06:00 02/26/25 07:04 Chloride IVPB 02/27/25 06:29 Infused Q12H KENNETH Infusion Dextrose 1,000 mls @ 100 mls/hr 02/17/25 21:35 Dextrose 5% 1,000 Ml IVPB PRN PRN Hypoglycemia Protocol Vancomycin HCl 2,000 mg in 500 mls @ 250 mls/hr 02/22/25 00:00 02/26/25 12:44 Vancomycin 2,000 Mg/Ns 500 Ml IVPB 02/26/25 23:59 250 mls/hr Q12H KENNETH Administration Dexmedetomidine HCl 400 mcg in 100 mls @ 6.57 mls/hr 02/22/25 07:40 02/26/25 14:00 Precedex 400 Mcg/100 Ml IV CONT 0.4 mcg/kg/hr .[id number] KENNETH 6.57 mls/hr Protocol Titration 0.4 MCG/KG/HR Insulin Aspart 3 - 6 units 02/18/25 00:00 02/26/25 12:43 Insulin Aspart (*Bkc) 100 Units/Ml SUB-Q Not Given Q4HR KENNETH Protocol Insulin Glargine 10 units 02/24/25 09:00 02/26/25 08:18 Insulin Glargine (*Bkc) 100 Units/Ml SUB-Q 10 units QAM KENNETH Administration Ipratropium [place] 0.5 mg 02/22/25 07:33 Ipratropium Br 0.02% Inh Soln 0.5 Mg/2.5 Ml Vial INHALATION Q6HRT PRN Wheezing Levalbuterol HCl 0.63 mg 02/22/25 07:33 Levalbuterol Neb 1.25 Mg/3 Ml INHALATION Q6HRT PRN Wheezing Metoclopramide HCl 10 mg 02/19/25 12:00 02/26/25 12:43 Metoclopramide Hcl Inj 10 Mg/2 Ml Vial IV PUSH 10 mg Q6HR KENNETH Administration Multi-Ingred Cream/Lotion/Oil/Oint 1 applic 02/17/25 21:00 02/26/25 08:16 Mineral Oil/White Petrolatum Ointment EACH EYE Not Given Q12HR KENNETH Multivitamins Therapeutic 1 tablet 02/23/25 10:00 02/26/25 08:16 Multivitamins Therapeutic Tab (*Bkc) FEED TUBE 1 tablet QAM KENNETH Administration Pantoprazole Sodium 40 mg 02/18/25 09:00 02/26/25 08:16 Pantoprazole Sodium Iv 40 Mg Vial IV PUSH 40 mg Q12HR KENNETH Administration Polyethylene Glycol 17 gm 02/21/25 09:00 02/26/25 08:16 Polyethylene Glycol 3350 17 Gm Powd.Pack PO 17 gm QAM KENNETH Administration Senna/Docusate Sodium 1 tab 02/17/25 21:00 02/25/25 20:06 Senna/Docusate Sodium Tablet FEED TUBE 1 tab HS KENNETH Administration Sodium Chloride 10 ml 02/18/25 22:00 02/26/25 14:26 Central Line Flush IV PUSH 10 ml Q8HR KENNETH Administration Sodium Chloride 20 ml 02/18/25 16:07 02/20/25 05:33 Central Line Flush IV PUSH 20 ml PRN PRN Administration after blood draws Thiamine HCl 100 mg 02/19/25 09:00 02/26/25 08:16 Thiamine Hcl 200 Mg/2 Ml Vial IV PUSH 100 mg QAM KENNETH Administration Radiology Results: ITS Impressions Head CT 02/17/25 16:55 IMPRESSION: 1. No acute intracranial hemorrhage. No mass effect. 2. Probable chronic ischemic white matter change. Chest/Abdomen/Pelvis CT 02/17/25 17:11 IMPRESSION: 1. Moderate sized groundglass opacities scattered throughout both lungs most prominent in the lower lobes. In addition, there are small to moderate sized patchy consolidations scattered throughout both lungs most prominent in the lower lobes. The findings are concerning for multilobar pneumonia. Other etiologies are possible but are felt to be less likely. Recommend follow-up to resolution. 2.There is a Daniels catheter in the bladder. Mild concentric thickening of the calvo of the bladder. Small amount of nondependent air in the bladder which may be due to recent instrumentation or cystitis. 3. Large amount of stool in the rectum. 4. The stomach is distended and filled with air. 5. Small amount of fat stranding with a few locules of air about the posterior aspect of the mid and distal sacrum. No obvious loculated fluid collection identified. No convincing CT evidence for sacral osteomyelitis at this time. Abdomen Ultrasound 02/19/25 13:00 Impression: Limited study. No acute process Abdomen X-Ray 02/20/25 10:54 IMPRESSION: 1. No acute abdominal abnormality. 2: Bibasilar infiltrates may represent edema or pneumonia. Renal Ultrasound 02/20/25 17:18 IMPRESSION: 1. Normal kidneys without hydronephrosis. 2. Diffuse trabeculated bladder wall thickening suggestive of sequela of chronic outlet obstruction. Chest X-Ray 02/26/25 08:41 IMPRESSION: 1. Persistent opacity left lower lung zone which could represent atelectasis and/or pneumonia. 2. Endotracheal tube tip 6.0 cm above the jacobo. Consider advancement by 4 cm. Labs Labs: Laboratory Results - last 24 hr 02/25/25 02/25/25 02/26/25 16:41 19:42 00:36 WBC RBC Hgb Hct MCV MCH MCHC RDW Plt Count MPV Puncture Site ABG pH ABG pCO2 ABG pO2 ABG PO2/FiO2 Ratio ABG HCO3 ABG O2 Saturation ABG O2 Content ABG Base Excess A-a Gradient Oxyhemoglobin Carboxyhemoglobin Methemoglobin Reduced Hemoglobin Total Hemoglobin O2 Delivery Device O2 Liters/Min Minute Volume Vent Rate Vent Mode FiO2 Tidal Volume PEEP Peak Inspir Pressure Pressure Support Sodium Potassium Chloride Carbon Dioxide Anion Gap BUN Creatinine Estim Creat Clear Calc Estimated GFR Glucose POC Capillary Glucose 173 H 170 H 208 H Calcium Phosphorus Magnesium Total Bilirubin AST ALT Alkaline Phosphatase Total Protein Albumin 02/26/25 02/26/25 02/26/25 04:58 05:00 05:01 WBC 9.6 RBC 2.88 L Hgb 7.6 L Hct 24.7 L MCV 85.8 MCH 26.4 MCHC 30.8 L RDW 16.4 H Plt Count 176 MPV 10.3 Puncture Site Right brachial ABG pH 7.489 H ABG pCO2 35.7 ABG pO2 85.7 ABG PO2/FiO2 Ratio 2.86 ABG HCO3 26.5 H ABG O2 Saturation 97.2 ABG O2 Content 11.1 L ABG Base Excess 3.1 A-a Gradient 86.3 Oxyhemoglobin 95.1 Carboxyhemoglobin 1.1 Methemoglobin 0.1 Reduced Hemoglobin 3.7 Total Hemoglobin 8.2 L O2 Delivery Device Ventilator O2 Liters/Min Not Reportable Minute Volume Not Reportable Vent Rate 16 Vent Mode Cmv FiO2 30 Tidal Volume 400 PEEP 5 Peak Inspir Pressure Not Reportable Pressure Support Not Reportable Sodium 145 Potassium 3.1 L Chloride 115 H Carbon Dioxide 30 Anion Gap 0 L BUN 22 H Creatinine 0.31 L Estim Creat Clear Calc 183 Estimated GFR > 60 Glucose 223 H POC Capillary Glucose Calcium 7.8 L Phosphorus 2.6 Magnesium 1.9 Total Bilirubin 0.3 AST 42 ALT 54 H Alkaline Phosphatase 168 H Total Protein 5.2 L Albumin 2.1 L 02/26/25 02/26/25 07:59 12:32 WBC RBC Hgb Hct MCV MCH MCHC RDW Plt Count MPV Puncture Site ABG pH ABG pCO2 ABG pO2 ABG PO2/FiO2 Ratio ABG HCO3 ABG O2 Saturation ABG O2 Content ABG Base Excess A-a Gradient Oxyhemoglobin Carboxyhemoglobin Methemoglobin Reduced Hemoglobin Total Hemoglobin O2 Delivery Device O2 Liters/Min Minute Volume Vent Rate Vent Mode FiO2 Tidal Volume PEEP Peak Inspir Pressure Pressure Support Sodium Potassium Chloride Carbon Dioxide Anion Gap BUN Creatinine Estim Creat Clear Calc Estimated GFR Glucose POC Capillary Glucose 205 H 191 H Calcium Phosphorus Magnesium Total Bilirubin AST ALT Alkaline Phosphatase Total Protein Albumin
[2025-02-26 18:08] LABS: Anion Gap -1 mmol/L (4-12); Blood Urea Nitrogen 21 mg/dL (9-20); Calcium 8.1 mg/dL (8.4-10.2); Carbon Dioxide 34 mmol/L (22-30); Chloride 112 mmol/L (98-107); Estimated CRCL calculation 183 ml/min; Estimated Glomerular Filt Rate > 60; Glucose 205 mg/dL (65-110); Potassium 3.4 mmol/L (3.4-5.0); Sodium 145 mmol/L (137-145)
[2025-02-26] MEDS: MINERAL OIL/WHITE PETROLATUM OINTMENT 1 APPLIC EACH EYE (20:53)
[2025-02-26] MEDS: SENNA/DOCUSATE SODIUM TABLET 1 TAB FEED TUBE (20:53)
[2025-02-26] MEDS: HYOSCYAMINE SULFATE SOLN 0.125 MG/ML ORAL SYRINGE PO (22:16)
[2025-02-27] VITALS (26 sets, daily range): BP systolic 90–121; BP diastolic 52–68; PULSE 75–98; RESP 20–28; TEMP 36.5–37.7; O2SAT 93–98
[2025-02-27] MEDS: INSULIN ASPART (*BKC) 100 UNITS/ML SUB-Q ×5 (00:01→20:10)
[2025-02-27] MEDS: ACETAMINOPHEN 325 MG TABLET 650 MG FEED TUBE ×2 (00:06→20:09)
[2025-02-27 05:02] LABS: Hematocrit 26.0 % (42.0-52.0); Hemoglobin 7.9 g/dL (14.0-18.0); Mean Corpuscular HGB Conc 30.4 g/dl (32-36); Mean Corpuscular Hemoglobin 26.4 pg (26-34); Mean Corpuscular Volume 87.0 fl (80-100); Platelet Count Result 217 k/mm3 (150-375); Red Blood Count 2.99 M/mm3 (4.6-6.20); White Blood Count 11.3 K/mm3 (4.5-10.0)
[2025-02-27 05:17] LABS: Alanine Aminotransferase 47 U/L (6-50); Albumin Level 2.3 g/dL (3.5-5.1); Alkaline Phosphatase 175 U/L (38-126); Anion Gap 0 mmol/L (4-12); Aspartate Amino Transferase 36 U/L (17-59); Bilirubin,Total 0.2 mg/dL (0.2-1.3); Blood Urea Nitrogen 22 mg/dL (9-20); Calcium 8.2 mg/dL (8.4-10.2); Carbon Dioxide 33 mmol/L (22-30); Chloride 110 mmol/L (98-107); Estimated CRCL calculation 193 ml/min; Estimated Glomerular Filt Rate > 60; Glucose 240 mg/dL (65-110); Magnesium 1.8 mg/dL (1.6-2.3); Potassium 3.2 mmol/L (3.4-5.0); Sodium 143 mmol/L (137-145); Total Protein 5.3 g/dL (6.3-8.2)
[2025-02-27 05:18] LABS: Alveolar/Arterial O2 Gradient 101.5 mmHg; Carboxyhemoglobin 0.8 % THb (0-2.0); Fractional Inspired Oxygen 30 %; HCO3 ABG 27.9 mEq/l (22.0-26.0); Methemoglobin ABG 0.3 %THb (0-1.5); Oxygen Content ABG 12.0 %vol (16.0-22.0); Oxygen Saturation ABG 95.5 % (95.0-100.0); PCO2 ABG 36.0 mmHg (35.0-45.0); PO2 ABG 70.1 mmHg (80.0-100.0); PO2 FiO2 Ratio Arterial Blood 2.34 %; Reduced Hemoglobin 6.5 %THb (0-5.0)
[2025-02-27 05:22] LABS: Modified Allen's Test Pass; Site Drawn RIGHT RADIAL
[2025-02-27 05:23] LABS: Arterial Blood Gas Ventilator rate 16 /MIN
[2025-02-27] MEDS: dexmedeTOMIDine 400 MCG/100 ML 400 MCG/100 ML BAG 6.57 MCG IV CONT ×2 (05:26→19:16)
[2025-02-27 05:27] LABS: Arterial Blood Gas Tidal Volume 350 ml
--- NOTE | 2025-02-27 05:43 | PC.NURSE ---
Patient's suprapubic cath leaked a large volume of urine overnight. Balloon was checked & 20cc of saline was irrigated and pulled back out. Urine flowed well to cath bag after.
[2025-02-27] MEDS: METOCLOPRAMIDE HCL INJ 10 MG/2 ML VIAL IV PUSH ×3 (05:47→17:22)
[2025-02-27] MEDS: CENTRAL LINE FLUSH 10 ML IV PUSH ×3 (05:47→22:06)
[2025-02-27] MEDS: IPRATROPIUM BR 0.02% INH SOLN 0.5 MG/2.5 ML VIAL INHALATION ×2 (08:32→14:47)
--- NOTE | 2025-02-27 08:43 | P.PNINT_ITS ---
Progress Note: A&P Assessment and Plan (1) Septic shock: Code(s): A41.9 - Sepsis, unspecified organism; R65.21 - Severe sepsis with septic shock Status: Acute Assessment and Plan: 02/17: Patient presented from a skilled nursing with altered mental status, shortness of breath. Initially had Leukocytosis. Patient did receive 2 L IV fluid bolus in the ER, was transferred to the intermediate Unit and immediately upon arrival to the IMU, rapid response was called due to hypoxia, tachypnea, tachycardia. Patient was transferred to of the ICU -likely etiology pneumonia and UTI -lactic acid normalized in patient is now off of vasopressors -adequately fluid-resuscitated in the ICU -02/17: Preliminary blood cultures are negative x2 -02/17: Urine cultures grew superficial organisms -02/18: Sputum culture growing Klebsiella friend, MRSA and Dolores tropicalis 02/17: Nasal MRSA screen was positive Continue cefepime and vancomycin (02/17), completed course of doxycycline Off IV fluids (2) Acute respiratory failure: Code(s): J96.00 - Acute respiratory failure, unspecified whether with hypoxia or hypercapnia Status: Acute Assessment and Plan: 02/17: Patient was transferred to the ICU from intermediate Unit. He was emergently intubated by ER physician likely cause multifocal pneumonia Patient is on CMV mode of ventilation, peep of 10, 40% FiO2. Decrease PEEP to 8 Chest x-ray and ABGs reviewed, Continue bronchodilators - Xopenex and Atrovent but change to p.r.n. 02/22 Patient awake and following commands but tachypneic with rate in high 30s. When I placed patient on PSV 01/28 patient's respiratory rate was up to 40s. Patient was started on Precedex infusion for anxiolysis and given Lasix 02/238 PSV done again today. RSBI borderline. Patient with increased work of breathing. Will increase pressure support and continue as long as patient tolerates. Will give another dose of Lasix today 02/24 PSV weaning trial was again attempted this morning. High RSBI and re spiratory rate. Patient needed pressure support of 15/8 for adequate RSBI. Patient was then placed on ASV at 80%. It was continued through the day. Patient appears very weak and debilitated. Weaning is going to be difficult and long. Patient may very well need tracheostomy. Will continue working with him daily 02/26 patient placed on PSV again. His tidal volumes are in 200s. She is debilitated and weak. Patient has history of high cervical myelopathy they could be component of diaphragmatic weakness. Even if he is extubated he will not be able to use BiPAP considering he can not even lift his hands off the bed. I anticipate patient will need tracheostomy. Will continue working through the weekend and revisit this with patient's family. 02/27 will try PSV again today. I will discuss with family with regard to option of tracheostomy and PEG tube placement Continue daily assessment for SBT Treatment of pneumonia as above 02/17: CT chest, abdomen and pelvis IMPRESSION: 1. Moderate sized groundglass opacities scattered throughout both lungs most prominent in the lower lobes. In addition, there are small to moderate sized patchy consolidations scattered throughout both lungs most prominent in the lower lobes. The findings are concerning for multilobar pneumonia. Other etiologies are possible but are felt to be less likely. Recommend follow-up to resolution. 2.There is a Daniels catheter in the bladder. Mild concentric thickening of the calvo of the bladder. Small amount of nondependent air in the bladder which may be due to recent instrumentation or cystitis. 3. Large amount of stool in the rectum. 4. The stomach is distended and filled with air. 5. Small amount of fat stranding with a few locules of air about the posterior aspect of the mid and distal sacrum. No obvious loculated fluid collection identified. No convincing CT evidence for sacral osteomyelitis at this time. (3) Multifocal pneumonia: Code(s): J18.8 - Other pneumonia, unspecified organism Status: Acute Assessment and Plan: Multifocal pneumonia Continue treatment as above (4) Acute UTI: Code(s): N39.0 - Urinary tract infection, site not specified Status: Acute Assessment and Plan: UA was positive for UTI, -continue antibiotics as above (5) Diabetes: Code(s): E11.9 - Type 2 diabetes mellitus without complications Status: Acute Assessment and Plan: Accu-Cheks and sliding scale insulin (6) Sacral ulcer: Code(s): L98.429 - Non-pressure chronic ulcer of back with unspecified severity Status: Acute Assessment and Plan: Patient has a sacral ulcer -appreciate wound care evaluation and recommendations 02/17: CT abdomen and pelvis: Small amount of fat stranding with a few locules of air about the posterior aspect of the mid and distal sacrum. No obvious locul ated fluid collection identified. No convincing CT evidence for sacral osteomyelitis at this time. (7) Metabolic acidosis: Code(s): E87.20 - Acidosis, unspecified Status: Acute Assessment and Plan: Patient with metabolic acidosis, hypernatremia, hypophosphatemia, hypokalemia -elevated beta hydroxybutyrate, urine positive for protein, glucose and ketones -most likely related to starvation ketoacidosis causing metabolic acidosis -improved (8) Severe protein-calorie malnutrition: Code(s): E43 - Unspecified severe protein-calorie malnutrition Status: Acute Assessment and Plan: According to the niece patient has lost lot of weight since August 2024, initially she stated he unable to feed himself due to his neuropathy and was not being adequately fed at the skilled nursing, after this surgery and when he was able to move his arms he stated he was not eating well because he was not h ungry. -patient's BMI is 18.3, given his height, age, gender he does classify into severe protein calorie malnutrition -appreciate dietitian evaluation recommendations -continue tube feeds. Advance to goal today -continue thiamine and folic acid. Contain MVI -continue Reglan (9) Electrolyte imbalance: Code(s): E87.8 - Other disorders of electrolyte and fluid balance, not elsewhere classified Status: Acute Assessment and Plan: Hypernatremia improved. Off D5 water. Continue increased free water flushes Replace low potassium Nephrology following (10) Constipation: Code(s): K59.00 - Constipation, unspecified Status: Acute Assessment and Plan: Large amount of stool in the rectal vault as seen on the CT scan of the abdomen and pelvis -patient has not had a bowel movement -02/20: Soapsuds enema was given without much improved -patient was given lactulose enema -continue MiraLax, bisacodyl and senna S -patient is having bowel movements now (11) Weakness: Code(s): R53.1 - Weakness Status: Acute Assessment and Plan: Patient had cervical myelopathy and had some ankle surgery with fusion and instrumentation early this year since then patient has been mostly bedbound. Family states the patient was already seen in skilled nursing in the bed and few times a wheelchair. He has significant weakness in both arms and legs. They also state that he had poor p.o. intake and had trouble and difficulty with the eating. Plan DVT prophylaxis: Heparin subQ Stress ulcer prophylaxis: Protonix Nutrition: Continue tube feeds at goal of 70 mL/hour Code Status: Full code Critical Care Time Spent: 30 minutes Due to a high probability of clinically significant, life threatening deteri oration, the patient required my highest level of preparedness to intervene emergently and I personally spent this critical care time directly and personally managing the patient. This critical care time included obtaining a history; examining the patient; pulse oximetry; ordering and review of studies; arranging urgent treatment with development of a management plan; evaluation of patient's response to treatment; frequent reassessment; and discussions with other providers. It was exclusive of separately billable procedures and treating other patients and teaching time. Please see Assessment and Plan section and the rest of the note for further information on patient assessment and treatment This dictation may have been done utilizing a voice recognition system. Attempts have been made to correct errors. However, there may be uncorrected grammatical, spelling, and recognitions errors present. Subjective Date/time seen: 02/27/25 Overnight events reviewed. Afebrile Continues to be on mechanical ventilation Tolerating tube feed Continues to be sedated with low-dose Precedex Good urine output Other Vitals acceptable Interval history: Reason for consult: Septic shock, acute respiratory failure, pneumonia, UTI, lactic acidosis, altered mental status 64yo male with HLD, DM and Asthma who presents with altered mental status and hypoxia from his skilled nursing. Rapid response called once patient arrived to IMU for being hypoxic. Transferred to the ICU and emergently intubated by ER physician Review of Systems Review of Systems: ROS unobtainable: Yes unobtainable due to endotracheal tube, unobtainable due to medical condition and unobtainable due to mental status Exam Narrative: General: intubated and sedated, in no acute distress HEENT:? Pupils equal and reactive, sclera is clear, ETT in place Neck:? Supple Respiratory:? Coarse breath sounds bilaterally, decreased at bases, no wheezing, adequate air entry Cardiac:? S1-S2 is normal, sinus tachycardia Abdomen:? Scaphoid abdomen, soft, nontender, hypoactive bowel sounds, patient cachectic and malnourished, patient has a sacral decubitus ulcer Extremities:? No edema, decreased pedal pulses Neuro:? Patient is intubated, off sedation, opens his eyes to name and follows simple commands with all 4 extremities but appears to be very weak, PERRL Skin:? old healing ulcers on the feet bilaterally Psych:? Unable to assess at this time Objective Data Vital Signs Vital Signs: Vital Signs - 24 hr 02/26/25 10:00 02/26/25 10:00 02/26/25 10:00 Temperature Pulse Rate 97 97 83 Respiratory Rate 24 H 26 H Blood Pressure 161/95 H Pulse Oximetry 96 Oxygen Delivery Fraction of Inspired Oxygen 02/26/25 10:30 02/26/25 11:19 02/26/25 12:00 Temperature Pulse Rate 89 100 Respiratory Rate 24 H Blood Pressure Pulse Oximetry 97 98 Oxygen Delivery Mechanical Ventilation Mechanical Ventilation Mechanical Ventilation Fraction of Inspired Oxygen 30 30 02/26/25 12:00 02/26/25 12:00 02/26/25 12:00 Temperature 36.8 C Pulse Rate 88 88 Respiratory Rate 26 H Blood Pressure 112/69 Pulse Oximetry 97 Oxygen Delivery Fraction of Inspired Oxygen 30 02/26/25 12:00 02/26/25 14:00 02/26/25 14:00 Temperature Pulse Rate 81 80 80 Respiratory Rate 24 H 23 H Blood Pressure 97/59 L Pulse Oximetry 97 Oxygen Delivery Fraction of Inspired Oxygen 02/26/25 14:00 02/26/25 14:32 02/26/25 16:00 Temperature Pulse Rate 79 83 87 Respiratory Rate 20 Blood Pressure Pulse Oximetry 98 Oxygen Delivery Mechanical Ventilation Fraction of Inspired Oxygen 30 02/26/25 16:00 02/26/25 16:00 02/26/25 16:00 Temperature 36.9 C Pulse Rate 91 107 H Respiratory Rate 28 H 21 H Blood Pressure 108/62 Pulse Oximetry 93 98 Oxygen Delivery Mechanical Ventilation Fraction of Inspired Oxygen 30 30 02/26/25 16:22 02/26/25 16:22 02/26/25 17:34 Temperature Pulse Rate 88 88 81 Respiratory Rate 25 H 25 H Blood Pressure Pulse Oximetry 100 Oxygen Delivery Mechanical Ventilation Fraction of Inspired Oxygen 30 02/26/25 18:00 02/26/25 18:00 02/26/25 20:00 Temperature 37.3 C Pulse Rate 78 78 79 Respiratory Rate 20 23 H Blood Pressure 90/49 L 95/55 L Pulse Oximetry 80 L 97 Oxygen Delivery Fraction of Inspired Oxygen 02/26/25 20:00 02/26/25 20:00 02/26/25 20:00 Temperature Pulse Rate 75 78 Respiratory Rate 23 H Blood Pressure Pulse Oximetry Oxygen Delivery Fraction of Inspired Oxygen 30 02/26/25 20:09 02/26/25 21:57 02/26/25 22:00 Temperature Pulse Rate 75 84 81 Respiratory Rate 22 H Blood Pressure 115/62 Pulse Oximetry 95 97 96 Oxygen Delivery Mechanical Ventilation Mechanical Ventilation Fraction of Inspired Oxygen 30 30 02/26/25 22:00 02/26/25 22:00 02/27/25 00:00 Temperature Pulse Rate 83 83 85 Respiratory Rate 22 H 24 H Blood Pressure Pulse Oximetry Oxygen Delivery Fraction of Inspired Oxygen 02/27/25 00:00 02/27/25 00:00 02/27/25 00:00 Temperature 37.4 C Pulse Rate 85 82 Respiratory Rate 24 H Blood Pressure 121/63 Pulse Oximetry 98 Oxygen Delivery Fraction of Inspired Oxygen 30 02/27/25 01:20 02/27/25 02:00 02/27/25 02:00 Temperature Pulse Rate 81 81 81 Respiratory Rate 23 H Blood Pressure Pulse Oximetry 97 Oxygen Delivery Mechanical Ventilation Fraction of Inspired Oxygen 30 02/27/25 02:00 02/27/25 03:59 02/27/25 04:00 Temperature 37.3 C 37.6 C Pulse Rate 79 81 82 Respiratory Rate 25 H 24 H 24 H Blood Pressure 107/60 117/67 Pulse Oximetry 98 98 Oxygen Delivery Fraction of Inspired Oxygen 02/27/25 04:00 02/27/25 04:00 02/27/25 05:26 Temperature Pulse Rate 80 76 Respiratory Rate 21 H Blood Pressure Pulse Oximetry Oxygen Delivery Fraction of Inspired Oxygen 30 02/27/25 05:26 02/27/25 05:29 02/27/25 06:00 Temperature Pulse Rate 76 81 77 Respiratory Rate 21 H Blood Pressure Pulse Oximetry 97 Oxygen Delivery Mechanical Ventilation Fraction of Inspired Oxygen 30 02/27/25 06:00 02/27/25 06:00 02/27/25 07:33 Temperature 37.4 C 36.5 C Pulse Rate 77 76 75 Respiratory Rate 21 H 24 H 24 H Blood Pressure 103/62 95/55 L Pulse Oximetry 98 95 Oxygen Delivery Fraction of Inspired Oxygen Intake/Output Intake/Output: Intake & Output 02/24/25 02/25/25 02/26/25 02/27/25 23:59 23:59 23:59 23:59 Intake Total 4311.2 4570.7 2746.4 1781.4 Output Total 3600 2800 4075 50 Balance 711.2 1770.7 -1328.6 1731.4 Meds/Results Medications: Active Medications Generic Name Dose Route Start Last Admin Trade Name Freq PRN Reason Stop Dose Admin Acetaminophen 650 mg 02/17/25 20:19 02/27/25 00:06 Acetaminophen 325 Mg Tablet FEED TUBE 650 mg Q4H PRN Administration Mild Pain (1-3) or Fever Alteplase, Recombinant 2 mg 02/21/25 22:45 02/21/25 23:00 Alteplase 2 Mg Vial (Cathflo) IV PUSH 2 mg ONCE PRN Administration Line Occlusion Bisacodyl 10 mg 02/24/25 09:00 02/26/25 08:15 Bisacodyl 10 Mg Suppository RECTAL 10 mg QAM KENNETH Administration Dextrose 12.5 gm 02/17/25 21:35 Dextrose 50% 25 Gm/50 Ml Syringe IV PUSH PRN PRN Hypoglycemia Protocol Folic Acid 1 mg 02/19/25 09:00 02/26/25 08:15 Folic Acid 1 Mg/0.2 Ml Inj IV PUSH 1 mg QAM KENNETH Administration Furosemide 80 mg 02/27/25 12:00 Furosemide Inj 100 Mg/10 Ml Vial IV PUSH 02/27/25 12:01 ONCE ONE Glucagon 1 mg 02/17/25 21:35 Glucagon For Inj 1 Mg Vial IM PRN PRN Hypoglycemia Protocol Glucose 15 gm 02/17/25 21:35 Glucose Oral Gel 15 Gm Of Glucse In 37.5 Gm Tube PO PRN PRN Hypoglycemia Protocol Heparin Sodium (Porcine) 5,000 units 02/18/25 14:00 02/27/25 05:47 Heparin Sodium 5,000 Units/Ml Vial SUB-Q 5,000 units Q8HR KENNETH Administration Hydralazine HCl 10 mg 02/21/25 19:36 02/22/25 00:00 Hydralazine Hcl 20 Mg/Ml Vial IV PUSH 10 mg Q6H PRN Administration Blood Pressure - High Hyoscyamine 0.125 mg 02/25/25 22:25 02/26/25 22:16 Hyoscyamine Sulfate Soln 0.125 Mg/Ml Oral Syringe PO 0.125 mg Q4H PRN Administration Abdominal Cramping Dextrose 1,000 mls @ 100 mls/hr 02/17/25 21:35 Dextrose 5% 1,000 Ml IVPB PRN PRN Hypoglycemia Protocol Dexmedetomidine HCl 400 mcg in 100 mls @ 6.57 mls/hr 02/22/25 07:40 02/27/25 06:00 Precedex 400 Mcg/100 Ml IV CONT 0.4 mcg/kg/hr .[id number] KENNETH 6.57 mls/hr Protocol Titration 0.4 MCG/KG/HR Potassium Chloride 100 mls @ 25 mls/hr 02/27/25 08:00 Kcl 40 Meq/Water 100 Ml IVPB 02/27/25 11:59 ONCE ONE Insulin Aspart 3 - 6 units 02/18/25 00:00 02/27/25 05:47 Insulin Aspart (*Bkc) 100 Units/Ml SUB-Q 3 units Q4HR KENNETH Administration Protocol Insulin Glargine 10 units 02/24/25 09:00 02/26/25 08:18 Insulin Glargine (*Bkc) 100 Units/Ml SUB-Q 10 units QAM KENNETH Administration Ipratropium [place] 0.5 mg 02/22/25 07:33 02/27/25 08:32 Ipratropium Br 0.02% Inh Soln 0.5 Mg/2.5 Ml Vial INHALATION 0.5 mg Q6HRT PRN Administration Wheezing Levalbuterol HCl 0.63 mg 02/22/25 07:33 02/27/25 08:33 Levalbuterol Neb 1.25 Mg/3 Ml INHALATION 0.63 mg Q6HRT PRN Administration Wheezing Metoclopramide HCl 10 mg 02/19/25 12:00 02/27/25 05:47 Metoclopramide Hcl Inj 10 Mg/2 Ml Vial IV PUSH 10 mg Q6HR KENNETH Administration Multi-Ingred Cream/Lotion/Oil/Oint 1 applic 02/17/25 21:00 02/26/25 20:53 Mineral Oil/White Petrolatum Ointment EACH EYE 1 applic Q12HR KENNETH Administration Multivitamins Therapeutic 1 tablet 02/23/25 10:00 02/26/25 08:16 Multivitamins Therapeutic Tab (*Bkc) FEED TUBE 1 tablet QAM KENNETH Administration Pantoprazole Sodium 40 mg 02/18/25 09:00 02/26/25 20:52 Pantoprazole Sodium Iv 40 Mg Vial IV PUSH 40 mg Q12HR KENNETH Administration Polyethylene Glycol 17 gm 02/21/25 09:00 02/26/25 08:16 Polyethylene Glycol 3350 17 Gm Powd.Pack PO 17 gm QAM KENNETH Administration Senna/Docusate Sodium 1 tab 02/17/25 21:00 02/26/25 20:53 Senna/Docusate Sodium Tablet FEED TUBE 1 tab HS KENNETH Administration Sodium Chloride 10 ml 02/18/25 22:00 02/27/25 05:47 Central Line Flush IV PUSH 10 ml Q8HR KENNETH Administration Sodium Chloride 20 ml 02/18/25 16:07 02/20/25 05:33 Central Line Flush IV PUSH 20 ml PRN PRN Administration after blood draws Thiamine HCl 100 mg 02/19/25 09:00 02/26/25 08:16 Thiamine Hcl 200 Mg/2 Ml Vial IV PUSH 100 mg QAM KENNETH Administration Radiology Results: ITS Impressions Head CT 02/17/25 16:55 IMPRESSION: 1. No acute intracranial hemorrhage. No mass effect. 2. Probable chronic ischemic white matter change. Chest/Abdomen/Pelvis CT 02/17/25 17:11 IMPRESSION: 1. Moderate sized groundglass opacities scattered throughout both lungs most prominent in the lower lobes. In addition, there are small to moderate sized patchy consolidations scattered throughout both lungs most prominent in the lower lobes. The findings are concerning for multilobar pneumonia. Other etiologies are possible but are felt to be less likely. Recommend follow-up to resolution. 2.There is a Daniels catheter in the bladder. Mild concentric thickening of the calvo of the bladder. Small amount of nondependent air in the bladder which may be due to recent instrumentation or cystitis. 3. Large amount of stool in the rectum. 4. The stomach is distended and filled with air. 5. Small amount of fat stranding with a few locules of air about the posterior aspect of the mid and distal sacrum. No obvious loculated fluid collection identified. No convincing CT evidence for sacral osteomyelitis at this time. Abdomen Ultrasound 02/19/25 13:00 Impression: Limited study. No acute process Abdomen X-Ray 02/20/25 10:54 IMPRESSION: 1. No acute abdominal abnormality. 2: Bibasilar infiltrates may represent edema or pneumonia. Renal Ultrasound 02/20/25 17:18 IMPRESSION: 1. Normal kidneys without hydronephrosis. 2. Diffuse trabeculated bladder wall thickening suggestive of sequela of chronic outlet obstruction. Labs Labs: Laboratory Results - last 24 hr 02/26/25 02/26/25 02/26/25 12:32 16:50 17:53 WBC RBC Hgb Hct MCV MCH MCHC RDW Plt Count MPV Puncture Site ABG pH ABG pCO2 ABG pO2 ABG PO2/FiO2 Ratio ABG HCO3 ABG O2 Saturation ABG O2 Content ABG Base Excess A-a Gradient Oxyhemoglobin Carboxyhemoglobin Methemoglobin Reduced Hemoglobin Total Hemoglobin O2 Delivery Device O2 Liters/Min Minute Volume Vent Rate Vent Mode FiO2 Tidal Volume PEEP Peak Inspir Pressure Pressure Support Sodium 145 Potassium 3.4 Chloride 112 H Carbon Dioxide 34 H Anion Gap -1 L BUN 21 H Creatinine 0.31 L Estim Creat Clear Calc 183 Estimated GFR > 60 Glucose 205 H POC Capillary Glucose 191 H 205 H Calcium 8.1 L Phosphorus Magnesium Total Bilirubin AST ALT Alkaline Phosphatase Total Protein Albumin 02/26/25 02/26/25 02/27/25 20:01 23:48 03:58 WBC RBC Hgb Hct MCV MCH MCHC RDW Plt Count MPV Puncture Site ABG pH ABG pCO2 ABG pO2 ABG PO2/FiO2 Ratio ABG HCO3 ABG O2 Saturation ABG O2 Content ABG Base Excess A-a Gradient Oxyhemoglobin Carboxyhemoglobin Methemoglobin Reduced Hemoglobin Total Hemoglobin O2 Delivery Device O2 Liters/Min Minute Volume Vent Rate Vent Mode FiO2 Tidal Volume PEEP Peak Inspir Pressure Pressure Support Sodium Potassium Chloride Carbon Dioxide Anion Gap BUN Creatinine Estim Creat Clear Calc Estimated GFR Glucose POC Capillary Glucose 174 H 216 H 219 H Calcium Phosphorus Magnesium Total Bilirubin AST ALT Alkaline Phosphatase Total Protein Albumin 02/27/25 02/27/25 02/27/25 04:41 05:10 07:02 WBC 11.3 H RBC 2.99 L Hgb 7.9 L Hct 26.0 L MCV 87.0 MCH 26.4 MCHC 30.4 L RDW 16.8 H Plt Count 217 MPV 10.1 Puncture Site Right radial ABG pH 7.507 H* ABG pCO2 36.0 ABG pO2 70.1 L ABG PO2/FiO2 Ratio 2.34 ABG HCO3 27.9 H ABG O2 Saturation 95.5 ABG O2 Content 12.0 L ABG Base Excess 4.6 A-a Gradient 101.5 Oxyhemoglobin 92.4 Carboxyhemoglobin 0.8 Methemoglobin 0.3 Reduced Hemoglobin 6.5 H Total Hemoglobin 9.2 L O2 Delivery Device Ventilator O2 Liters/Min Not Reportable Minute Volume Not Reportable Vent Rate 16 Vent Mode Cmv FiO2 30 Tidal Volume 350 PEEP 5 Peak Inspir Pressure Not Reportable Pressure Support Not Reportable Sodium 143 Potassium 3.2 L Chloride 110 H Carbon Dioxide 33 H Anion Gap 0 L BUN 22 H Creatinine 0.29 L Estim Creat Clear Calc 193 Estimated GFR > 60 Glucose 240 H POC Capillary Glucose 228 H Calcium 8.2 L Phosphorus 2.7 Magnesium 1.8 Total Bilirubin 0.2 AST 36 ALT 47 Alkaline Phosphatase 175 H Total Protein 5.3 L Albumin 2.3 L Quality VTE Prophylaxis VTE prophylaxis: pharmacologic ordered
[2025-02-27] MEDS: KCL 40 MEQ/WATER 100 ML 100 ML 25 ML IVPB (09:03)
[2025-02-27] MEDS: POTASSIUM BICARBONATE 25 MEQ TABEF 50 MEQ FEED TUBE (09:03)
[2025-02-27] MEDS: INSULIN GLARGINE (*BKC) 100 UNITS/ML 10 UNITS SUB-Q (09:04)
[2025-02-27] MEDS: BISACODYL 10 MG SUPPOSITORY RECTAL (09:04)
[2025-02-27] MEDS: THIAMINE HCL 200 MG/2 ML VIAL 100 MG IV PUSH (09:05)
[2025-02-27] MEDS: MULTIVITAMINS THERAPEUTIC TAB (*BKC) 1 TABLET FEED TUBE (09:05)
[2025-02-27] MEDS: PANTOPRAZOLE SODIUM IV 40 MG VIAL IV PUSH ×2 (09:05→20:09)
[2025-02-27] MEDS: FOLIC ACID 1 MG/0.2 ML INJ IV PUSH (09:05)
[2025-02-27] MEDS: FUROSEMIDE INJ 100 MG/10 ML VIAL 80 MG IV PUSH (12:34)
--- NOTE | 2025-02-27 15:57 | PM.IMPN ---
Progress Note: A&P Assessment and Plan (1) Severe protein-calorie malnutrition: Code(s): E43 - Unspecified severe protein-calorie malnutrition Status: Acute (2) Septic shock: Code(s): A41.9 - Sepsis, unspecified organism; R65.21 - Severe sepsis with septic shock Status: Acute (3) Pneumonia: Code(s): J18.9 - Pneumonia, unspecified organism Status: Acute (4) Acute respiratory failure: Code(s): J96.00 - Acute respiratory failure, unspecified whether with hypoxia or hypercapnia Status: Acute (5) Acute UTI: Code(s): N39.0 - Urinary tract infection, site not specified Status: Acute Plan Patient presented with altered mental status shortness of breath. Initially had leukocytosis received IV fluid resuscitation and was transferred to IMU however immediately upon arrival to IMU rapid response was called due to hypoxia tachypnea tachycardia was transferred to ICU. Septic shock requiring vasopressors which now off. Preliminary blood cultures negative x2. Urine culture grew use superficial organisms. Sputum culture grew Klebsiella MRSA and Dolores tropicalis. Nasal MRSA was positive. On cefepime and vancomycin since 02/17. Completed course of doxycycline Acute respiratory failure emergently intubated likely secondary to multifocal pneumonia. Daily SBT trial as per systems requirements planner CT chest abdomen pelvis with moderate size ground-glass opacities scattered throughout both lungs prominent in lower lobes. Small to moderate-sized patchy consultation scattered throughout both lungs most prominent in the lower lobes. Finding concerning for multi low over pneumonia. Multifocal pneumonia as noted above UTI Type 2 diabetes SSI Sacral decubitus ulcer continue wound care. CT negative for osteomyelitis Metabolic acidosis Protein calorie mild nutrition on tube feeds MVI thiamine folic acid Electrolyte imbalance continue to monitor Constipation large amount of stool in rectal vault S in the CT of the abdomen pelvis. Needed enema now resolved Generalized weakness History of cervical myelopathy DVT prophylaxis heparin subQ Nutrition tube feed Code status full code Subjective Date/time seen: 02/27/25 15:57 Interval history: No overnight events. Remains on Precedex drip. On SB at trial earlier. Back on full support. Review of Systems Review of Systems: ROS unobtainable: Yes unobtainable due to endotracheal tube Exam Narrative: General: intubated, in no acute distress HEENT:? Pupils equal and reactive, sclera is clear, ETT in place Neck:? Supple Respiratory:? Coarse breath sounds bilaterally, decreased at bases, no wheezing, adequate air entry Cardiac:? S1-S2 is normal, Abdomen:? Scaphoid abdomen, soft, nontender, hypoactive bowel sounds, patient cachectic and malnourished, patient has a sacral decubitus ulcer Extremities:? No edema, decreased pedal pulses Neuro:? Patient is intubated, off sedation, opens his eyes to name and follows simple commands with all 4 extremities but appears to be very weak, PERRL Skin:? old healing ulcers on the feet bilaterally Psych:? Unable to assess at this time Objective Data Vital Signs Vital Signs: Vital Signs - 24 hr 02/26/25 16:00 02/26/25 16:00 02/26/25 16:00 Temperature 98.4 F Pulse Rate 87 91 Respiratory Rate 28 H Blood Pressure 108/62 Pulse Oximetry 93 Oxygen Delivery Fraction of Inspired Oxygen 30 02/26/25 16:00 02/26/25 16:22 02/26/25 16:22 Temperature Pulse Rate 107 H 88 88 Respiratory Rate 21 H 25 H 25 H Blood Pressure Pulse Oximetry 98 Oxygen Delivery Mechanical Ventilation Fraction of Inspired Oxygen 30 02/26/25 17:34 02/26/25 18:00 02/26/25 18:00 Temperature Pulse Rate 81 78 78 Respiratory Rate 20 Blood Pressure 90/49 L Pulse Oximetry 100 80 L Oxygen Delivery Mechanical Ventilation Fraction of Inspired Oxygen 30 02/26/25 20:00 02/26/25 20:00 02/26/25 20:00 Temperature 99.1 F Pulse Rate 79 75 Respiratory Rate 23 H 23 H Blood Pressure 95/55 L Pulse Oximetry 97 Oxygen Delivery Fraction of Inspired Oxygen 30 02/26/25 20:00 02/26/25 20:09 02/26/25 21:57 Temperature Pulse Rate 78 75 84 Respiratory Rate Blood Pressure Pulse Oximetry 95 97 Oxygen Delivery Mechanical Ventilation Mechanical Ventilation Fraction of Inspired Oxygen 30 30 02/26/25 22:00 02/26/25 22:00 02/26/25 22:00 Temperature Pulse Rate 81 83 83 Respiratory Rate 22 H 22 H Blood Pressure 115/62 Pulse Oximetry 96 Oxygen Delivery Fraction of Inspired Oxygen 02/27/25 00:00 02/27/25 00:00 02/27/25 00:00 Temperature 99.3 F Pulse Rate 85 85 Respiratory Rate 24 H 24 H Blood Pressure 121/63 Pulse Oximetry 98 Oxygen Delivery Fraction of Inspired Oxygen 30 02/27/25 00:00 02/27/25 01:20 02/27/25 02:00 Temperature Pulse Rate 82 81 81 Respiratory Rate 23 H Blood Pressure Pulse Oximetry 97 Oxygen Delivery Mechanical Ventilation Fraction of Inspired Oxygen 30 02/27/25 02:00 02/27/25 02:00 02/27/25 03:59 Temperature 99.2 F 99.6 F Pulse Rate 81 79 81 Respiratory Rate 25 H 24 H Blood Pressure 107/60 117/67 Pulse Oximetry 98 98 Oxygen Delivery Fraction of Inspired Oxygen 02/27/25 04:00 02/27/25 04:00 02/27/25 04:00 Temperature Pulse Rate 82 80 Respiratory Rate 24 H Blood Pressure Pulse Oximetry Oxygen Delivery Fraction of Inspired Oxygen 30 02/27/25 05:26 02/27/25 05:26 02/27/25 05:29 Temperature Pulse Rate 76 76 81 Respiratory Rate 21 H 21 H Blood Pressure Pulse Oximetry 97 Oxygen Delivery Mechanical Ventilation Fraction of Inspired Oxygen 30 02/27/25 06:00 02/27/25 06:00 02/27/25 06:00 Temperature 99.3 F Pulse Rate 77 77 76 Respiratory Rate 21 H 24 H Blood Pressure 103/62 Pulse Oximetry 98 Oxygen Delivery Fraction of Inspired Oxygen 02/27/25 07:33 02/27/25 08:00 02/27/25 08:00 Temperature 97.7 F Pulse Rate 75 81 Respiratory Rate 24 H Blood Pressure 95/55 L Pulse Oximetry 95 Oxygen Delivery Fraction of Inspired Oxygen 30 02/27/25 08:00 02/27/25 08:00 02/27/25 08:33 Temperature Pulse Rate 90 80 80 Respiratory Rate 21 H 21 H Blood Pressure Pulse Oximetry 98 96 Oxygen Delivery Mechanical Ventilation Mechanical Ventilation Fraction of Inspired Oxygen 30 30 02/27/25 08:33 02/27/25 08:55 02/27/25 10:00 Temperature 99.8 F H Pulse Rate 80 76 95 Respiratory Rate 24 H 22 H Blood Pressure 92/57 L Pulse Oximetry 94 93 Oxygen Delivery Mechanical Ventilation Fraction of Inspired Oxygen 30 02/27/25 10:00 02/27/25 10:00 02/27/25 11:45 Temperature Pulse Rate 95 95 79 Respiratory Rate 22 H Blood Pressure Pulse Oximetry 93 Oxygen Delivery Mechanical Ventilation Fraction of Inspired Oxygen 30 02/27/25 11:50 02/27/25 12:00 02/27/25 12:00 Temperature 99.5 F Pulse Rate 82 82 Respiratory Rate 23 H Blood Pressure 96/58 L Pulse Oximetry 95 95 Oxygen Delivery Mechanical Ventilation Fraction of Inspired Oxygen 30 30 02/27/25 12:00 02/27/25 12:00 02/27/25 12:00 Temperature Pulse Rate 82 83 95 Respiratory Rate 23 H 25 H Blood Pressure Pulse Oximetry 95 Oxygen Delivery Mechanical Ventilation Fraction of Inspired Oxygen 30 02/27/25 14:00 02/27/25 14:00 02/27/25 14:00 Temperature 99.1 F Pulse Rate 92 92 92 Respiratory Rate 24 H 24 H Blood Pressure 99/55 L Pulse Oximetry 93 Oxygen Delivery Fraction of Inspired Oxygen Intake/Output Intake/Output: Intake & Output 02/24/25 02/25/25 02/26/25 02/27/25 23:59 23:59 23:59 23:59 Intake Total 4311.2 4570.7 2746.4 1833.8 Output Total 3600 2800 4075 800 Balance 711.2 1770.7 -1328.6 1033.8 Meds/Results Medications: Active Medications Generic Name Dose Route Start Last Admin Trade Name Freq PRN Reason Stop Dose Admin Acetaminophen 650 mg 02/17/25 20:19 02/27/25 00:06 Acetaminophen 325 Mg Tablet FEED TUBE 650 mg Q4H PRN Administration Mild Pain (1-3) or Fever Alteplase, Recombinant 2 mg 02/21/25 22:45 02/21/25 23:00 Alteplase 2 Mg Vial (Cathflo) IV PUSH 2 mg ONCE PRN Administration Line Occlusion Bisacodyl 10 mg 02/24/25 09:00 02/27/25 09:04 Bisacodyl 10 Mg Suppository RECTAL 10 mg QAM KENNETH Administration Dextrose 12.5 gm 02/17/25 21:35 Dextrose 50% 25 Gm/50 Ml Syringe IV PUSH PRN PRN Hypoglycemia Protocol Folic Acid 1 mg 02/19/25 09:00 02/27/25 09:05 Folic Acid 1 Mg/0.2 Ml Inj IV PUSH 1 mg QAM KENNETH Administration Glucagon 1 mg 02/17/25 21:35 Glucagon For Inj 1 Mg Vial IM PRN PRN Hypoglycemia Protocol Glucose 15 gm 02/17/25 21:35 Glucose Oral Gel 15 Gm Of Glucse In 37.5 Gm Tube PO PRN PRN Hypoglycemia Protocol Heparin Sodium (Porcine) 5,000 units 02/18/25 14:00 02/27/25 13:07 Heparin Sodium 5,000 Units/Ml Vial SUB-Q 5,000 units Q8HR KENNETH Administration Hydralazine HCl 10 mg 02/21/25 19:36 02/22/25 00:00 Hydralazine Hcl 20 Mg/Ml Vial IV PUSH 10 mg Q6H PRN Administration Blood Pressure - High Hyoscyamine 0.125 mg 02/25/25 22:25 02/26/25 22:16 Hyoscyamine Sulfate Soln 0.125 Mg/Ml Oral Syringe PO 0.125 mg Q4H PRN Administration Abdominal Cramping Dextrose 1,000 mls @ 100 mls/hr 02/17/25 21:35 Dextrose 5% 1,000 Ml IVPB PRN PRN Hypoglycemia Protocol Dexmedetomidine HCl 400 mcg in 100 mls @ 6.57 mls/hr 02/22/25 07:40 02/27/25 14:00 Precedex 400 Mcg/100 Ml IV CONT 0.4 mcg/kg/hr .[id number] KENNETH 6.57 mls/hr Protocol Titration 0.4 MCG/KG/HR Insulin Aspart 3 - 6 units 02/18/25 00:00 02/27/25 12:37 Insulin Aspart (*Bkc) 100 Units/Ml SUB-Q Not Given Q4HR [facility] Protocol Insulin Glargine 10 units 02/24/25 09:00 02/27/25 09:04 Insulin Glargine (*Bkc) 100 Units/Ml SUB-Q 10 units QAM KENNETH Administration Ipratropium [place] 0.5 mg 02/22/25 07:33 02/27/25 14:47 Ipratropium Br 0.02% Inh Soln 0.5 Mg/2.5 Ml Vial INHALATION 0.5 mg Q6HRT PRN Administration Wheezing Levalbuterol HCl 0.63 mg 02/22/25 07:33 02/27/25 14:48 Levalbuterol Neb 1.25 Mg/3 Ml INHALATION 0.63 mg Q6HRT PRN Administration Wheezing Metoclopramide HCl 10 mg 02/19/25 12:00 02/27/25 12:34 Metoclopramide Hcl Inj 10 Mg/2 Ml Vial IV PUSH 10 mg Q6HR KENNETH Administration Multi-Ingred Cream/Lotion/Oil/Oint 1 applic 02/17/25 21:00 02/27/25 09:13 Mineral Oil/White Petrolatum Ointment EACH EYE Not Given Q12HR KENNETH Multivitamins Therapeutic 1 tablet 02/23/25 10:00 02/27/25 09:05 Multivitamins Therapeutic Tab (*Bkc) FEED TUBE 1 tablet QAM KENNETH Administration Pantoprazole Sodium 40 mg 02/18/25 09:00 02/27/25 09:05 Pantoprazole Sodium Iv 40 Mg Vial IV PUSH 40 mg Q12HR KENNETH Administration Polyethylene Glycol 17 gm 02/21/25 09:00 02/27/25 09:04 Polyethylene Glycol 3350 17 Gm Powd.Pack PO 17 gm QAM KENNETH Administration Senna/Docusate Sodium 1 tab 02/17/25 21:00 02/26/25 20:53 Senna/Docusate Sodium Tablet FEED TUBE 1 tab HS KENNETH Administration Sodium Chloride 10 ml 02/18/25 22:00 02/27/25 12:40 Central Line Flush IV PUSH 10 ml Q8HR KENNETH Administration Sodium Chloride 20 ml 02/18/25 16:07 02/20/25 05:33 Central Line Flush IV PUSH 20 ml PRN PRN Administration after blood draws Thiamine HCl 100 mg 02/19/25 09:00 02/27/25 09:05 Thiamine Hcl 200 Mg/2 Ml Vial IV PUSH 100 mg QAM KENNETH Administration Radiology Results: ITS Impressions Head CT 02/17/25 16:55 IMPRESSION: 1. No acute intracranial hemorrhage. No mass effect. 2. Probable chronic ischemic white matter change. Chest/Abdomen/Pelvis CT 02/17/25 17:11 IMPRESSION: 1. Moderate sized groundglass opacities scattered throughout both lungs most prominent in the lower lobes. In addition, there are small to moderate sized patchy consolidations scattered throughout both lungs most prominent in the lower lobes. The findings are concerning for multilobar pneumonia. Other etiologies are possible but are felt to be less likely. Recommend follow-up to resolution. 2.There is a Daniels catheter in the bladder. Mild concentric thickening of the calvo of the bladder. Small amount of nondependent air in the bladder which may be due to recent instrumentation or cystitis. 3. Large amount of stool in the rectum. 4. The stomach is distended and filled with air. 5. Small amount of fat stranding with a few locules of air about the posterior aspect of the mid and distal sacrum. No obvious loculated fluid collection identified. No convincing CT evidence for sacral osteomyelitis at this time. Abdomen Ultrasound 02/19/25 13:00 Impression: Limited study. No acute process Abdomen X-Ray 02/20/25 10:54 IMPRESSION: 1. No acute abdominal abnormality. 2: Bibasilar infiltrates may represent edema or pneumonia. Renal Ultrasound 02/20/25 17:18 IMPRESSION: 1. Normal kidneys without hydronephrosis. 2. Diffuse trabeculated bladder wall thickening suggestive of sequela of chronic outlet obstruction. Labs Labs: Laboratory Results - last 24 hr 02/26/25 02/26/25 02/26/25 16:50 17:53 20:01 WBC RBC Hgb Hct MCV MCH MCHC RDW Plt Count MPV Puncture Site ABG pH ABG pCO2 ABG pO2 ABG PO2/FiO2 Ratio ABG HCO3 ABG O2 Saturation ABG O2 Content ABG Base Excess A-a Gradient Oxyhemoglobin Carboxyhemoglobin Methemoglobin Reduced Hemoglobin Total Hemoglobin O2 Delivery Device O2 Liters/Min Minute Volume Vent Rate Vent Mode FiO2 Tidal Volume PEEP Peak Inspir Pressure Pressure Support Sodium 145 Potassium 3.4 Chloride 112 H Carbon Dioxide 34 H Anion Gap -1 L BUN 21 H Creatinine 0.31 L Estim Creat Clear Calc 183 Estimated GFR > 60 Glucose 205 H POC Capillary Glucose 205 H 174 H Calcium 8.1 L Phosphorus Magnesium Total Bilirubin AST ALT Alkaline Phosphatase Total Protein Albumin 02/26/25 02/27/25 02/27/25 23:48 03:58 04:41 WBC 11.3 H RBC 2.99 L Hgb 7.9 L Hct 26.0 L MCV 87.0 MCH 26.4 MCHC 30.4 L RDW 16.8 H Plt Count 217 MPV 10.1 Puncture Site ABG pH ABG pCO2 ABG pO2 ABG PO2/FiO2 Ratio ABG HCO3 ABG O2 Saturation ABG O2 Content ABG Base Excess A-a Gradient Oxyhemoglobin Carboxyhemoglobin Methemoglobin Reduced Hemoglobin Total Hemoglobin O2 Delivery Device O2 Liters/Min Minute Volume Vent Rate Vent Mode FiO2 Tidal Volume PEEP Peak Inspir Pressure Pressure Support Sodium 143 Potassium 3.2 L Chloride 110 H Carbon Dioxide 33 H Anion Gap 0 L BUN 22 H Creatinine 0.29 L Estim Creat Clear Calc 193 Estimated GFR > 60 Glucose 240 H POC Capillary Glucose 216 H 219 H Calcium 8.2 L Phosphorus 2.7 Magnesium 1.8 Total Bilirubin 0.2 AST 36 ALT 47 Alkaline Phosphatase 175 H Total Protein 5.3 L Albumin 2.3 L 02/27/25 02/27/25 02/27/25 05:10 07:02 12:36 WBC RBC Hgb Hct MCV MCH MCHC RDW Plt Count MPV Puncture Site Right radial ABG pH 7.507 H* ABG pCO2 36.0 ABG pO2 70.1 L ABG PO2/FiO2 Ratio 2.34 ABG HCO3 27.9 H ABG O2 Saturation 95.5 ABG O2 Content 12.0 L ABG Base Excess 4.6 A-a Gradient 101.5 Oxyhemoglobin 92.4 Carboxyhemoglobin 0.8 Methemoglobin 0.3 Reduced Hemoglobin 6.5 H Total Hemoglobin 9.2 L O2 Delivery Device Ventilator O2 Liters/Min Not Reportable Minute Volume Not Reportable Vent Rate 16 Vent Mode Cmv FiO2 30 Tidal Volume 350 PEEP 5 Peak Inspir Pressure Not Reportable Pressure Support Not Reportable Sodium Potassium Chloride Carbon Dioxide Anion Gap BUN Creatinine Estim Creat Clear Calc Estimated GFR Glucose POC Capillary Glucose 228 H 196 H Calcium Phosphorus Magnesium Total Bilirubin AST ALT Alkaline Phosphatase Total Protein Albumin
[2025-02-27] MEDS: SENNA/DOCUSATE SODIUM TABLET 1 TAB FEED TUBE (20:09)
[2025-02-27] MEDS: HYOSCYAMINE SULFATE SOLN 0.125 MG/ML ORAL SYRINGE PO (20:09)
[2025-02-27] MEDS: MINERAL OIL/WHITE PETROLATUM OINTMENT 1 APPLIC EACH EYE (20:11)
[2025-02-28] VITALS (23 sets, daily range): BP systolic 113–146; BP diastolic 53–77; PULSE 83–96; RESP 17–33; TEMP 36.6–37.3; O2SAT 92–100
[2025-02-28] MEDS: METOCLOPRAMIDE HCL INJ 10 MG/2 ML VIAL IV PUSH ×4 (00:14→18:03)
[2025-02-28] MEDS: INSULIN ASPART (*BKC) 100 UNITS/ML SUB-Q ×3 (00:16→08:08)
[2025-02-28 04:37] LABS: Hematocrit 24.0 % (42.0-52.0); Hemoglobin 7.3 g/dL (14.0-18.0); Mean Corpuscular HGB Conc 30.4 g/dl (32-36); Mean Corpuscular Hemoglobin 26.4 pg (26-34); Mean Corpuscular Volume 87.0 fl (80-100); Platelet Count Result 247 k/mm3 (150-375); Red Blood Count 2.76 M/mm3 (4.6-6.20); White Blood Count 13.7 K/mm3 (4.5-10.0)
[2025-02-28 04:52] LABS: Alanine Aminotransferase 36 U/L (6-50); Albumin Level 2.3 g/dL (3.5-5.1); Alkaline Phosphatase 148 U/L (38-126); Anion Gap 0 mmol/L (4-12); Aspartate Amino Transferase 26 U/L (17-59); Bilirubin,Total 0.3 mg/dL (0.2-1.3); Blood Urea Nitrogen 22 mg/dL (9-20); Calcium 8.0 mg/dL (8.4-10.2); Carbon Dioxide 33 mmol/L (22-30); Chloride 109 mmol/L (98-107); Estimated CRCL calculation 191 ml/min; Estimated Glomerular Filt Rate > 60; Glucose 239 mg/dL (65-110); Magnesium 1.9 mg/dL (1.6-2.3); Potassium 3.4 mmol/L (3.4-5.0); Sodium 142 mmol/L (137-145); Total Protein 5.3 g/dL (6.3-8.2)
[2025-02-28 04:53] LABS: Alveolar/Arterial O2 Gradient 94.3 mmHg; Carboxyhemoglobin 0.9 % THb (0-2.0); Fractional Inspired Oxygen 30 %; HCO3 ABG 30.0 mEq/l (22.0-26.0); Methemoglobin ABG 0.3 %THb (0-1.5); Oxygen Content ABG 11.2 %vol (16.0-22.0); Oxygen Saturation ABG 96.6 % (95.0-100.0); PCO2 ABG 36.6 mmHg (35.0-45.0); PO2 ABG 76.6 mmHg (80.0-100.0); PO2 FiO2 Ratio Arterial Blood 2.55 %; Reduced Hemoglobin 4.6 %THb (0-5.0)
[2025-02-28 04:55] LABS: Modified Allen's Test Pass; Site Drawn RIGHT RADIAL
[2025-02-28 04:56] LABS: Arterial Blood Gas Tidal Volume 350 ml; Arterial Blood Gas Ventilator rate 12 /MIN
[2025-02-28] MEDS: CENTRAL LINE FLUSH 10 ML IV PUSH ×3 (05:55→21:49)
[2025-02-28] MEDS: KCL 40 MEQ/WATER 100 ML 100 ML 25 ML IVPB (08:00)
[2025-02-28] MEDS: POTASSIUM BICARBONATE 25 MEQ TABEF 50 MEQ FEED TUBE (08:03)
[2025-02-28] MEDS: MULTIVITAMINS THERAPEUTIC TAB (*BKC) 1 TABLET FEED TUBE (08:08)
[2025-02-28] MEDS: PANTOPRAZOLE SODIUM IV 40 MG VIAL IV PUSH ×2 (08:09→20:33)
[2025-02-28] MEDS: THIAMINE HCL 200 MG/2 ML VIAL 100 MG IV PUSH (08:09)
[2025-02-28] MEDS: INSULIN GLARGINE (*BKC) 100 UNITS/ML 20 UNITS SUB-Q (08:09)
[2025-02-28] MEDS: dexmedeTOMIDine 400 MCG/100 ML 400 MCG/100 ML BAG 6.57 MCG IV CONT (08:11)
[2025-02-28] MEDS: BISACODYL 10 MG SUPPOSITORY RECTAL (08:11)
[2025-02-28] MEDS: FOLIC ACID 1 MG/0.2 ML INJ IV PUSH (08:21)
--- NOTE | 2025-02-28 08:49 | WPDINTPN ---
Progress Note: A&P Assessment and Plan (1) Septic shock: Code(s): A41.9 - Sepsis, unspecified organism; R65.21 - Severe sepsis with septic shock Status: Acute Assessment and Plan: 02/17: Patient [facility] from a prison with altered mental status, shortness of breath. Initially had Leukocytosis. Patient did receive 2 L IV fluid bolus in the ER, was transferred to the intermediate Unit and immediately upon arrival to the IMU, rapid response was called due to hypoxia, tachypnea, tachycardia. Patient was transferred to of the ICU -likely etiology pneumonia and UTI -lactic acid normalized in patient is now off of vasopressors -adequately fluid-resuscitated in the ICU -02/17: Preliminary blood cultures are negative x2 -02/17: Urine cultures grew superficial organisms -02/18: Sputum culture growing Klebsiella friend, MRSA and Dolores tropicalis 02/17: Nasal MRSA screen was positive Continue cefepime and vancomycin (02/17), completed course of doxycycline Off IV fluids (2) Acute respiratory failure: Code(s): J96.00 - Acute respiratory failure, unspecified whether with hypoxia or hypercapnia Status: Acute Assessment and Plan: 02/17: Patient was transferred to the ICU from intermediate Unit. He was emergently intubated by ER physician likely cause multifocal pneumonia Patient is on CMV mode of ventilation, peep of 10, 40% FiO2. Decrease PEEP to 8 Chest x-ray and ABGs reviewed, Continue bronchodilators - Xopenex and Atrovent but change to p.r.n. 02/22 Patient awake and following commands but tachypneic with rate in high 30s. When I placed patient on PSV 01/28 patient's respiratory rate was up to 40s. Patient was started on Precedex infusion for anxiolysis and given Lasix 02/238 PSV done again today. RSBI borderline. Patient with increased work of breathing. Will increase pressure support and continue as long as patient tolerates. Will give another dose of Lasix today 02/24 PSV weaning trial was again attempted this morning. High RSBI and respiratory rate. Patient needed pressure support of 15/8 for adequate RSBI. Patient was then placed on ASV at 80%. It was continued through the day. Patient appears very weak and debilitated. Weaning is going to be difficult and long. Patient may very well need tracheostomy. Will continue working with him daily 02/26 patient placed on PSV again. His tidal volumes are in 200s. She is debilitated and weak. Patient has history of high cervical myelopathy they could be component of diaphragmatic weakness. Even if he is extubated he will not be able to use BiPAP considering he can not even lift his hands off the bed. I anticipate patient will need tracheostomy. Will continue working through the weekend and revisit this with patient's family. 02/27 will try PSV again today. I will discuss with family with regard to option of tracheostomy and PEG tube placement 02/28 patient was placed on PSV again his tidal volumes are less than 200 mL and rate consistently above 30. Patient was placed on higher pressure support of 10 which provides acceptable RSBI. I will discuss with patient's family regarding proceeding with tracheostomy and PEG tube placement. ABG reviewed. Decrease tidal volume to 300 Continue daily assessment for SBT Treatment of pneumonia as above 02/17: CT chest, abdomen and pelvis IMPRESSION: 1. Moderate sized groundglass opacities scattered throughout both lungs most prominent in the lower lobes. In addition, there are small to moderate sized patchy consolidations scattered throughout both lungs most prominent in the lower lobes. The findings are concerning for multilobar pneumonia. Other etiologies are possible but are felt to be less likely. Recommend follow-up to resolution. 2.There is a Daniels catheter in the bladder. Mild concentric thickening of the calvo of the bladder. Small amount of nondependent air in the bladder which may be due to recent instrumentation or cystitis. 3. Large amount of stool in the rectum. 4. The stomach is distended and filled with air. 5. Small amount of fat stranding with a few locules of air about the posterior aspect of the mid and distal sacrum. No obvious loculated fluid collection identified. No convincing CT evidence for sacral osteomyelitis at this time. (3) Multifocal pneumonia: Code(s): J18.8 - Other pneumonia, unspecified organism Status: Acute Assessment and Plan: Multifocal pneumonia Continue treatment as above (4) Acute UTI: Code(s): N39.0 - Urinary tract infection, site not specified Status: Acute Assessment and Plan: UA was positive for UTI, -continue antibiotics as above (5) Diabetes: Code(s): E11.9 - Type 2 diabetes mellitus without complications Status: Acute Assessment and Plan: Accu-Cheks and sliding scale insulin Increase Lantus (6) Sacral ulcer: Code(s): L98.429 - Non-pressure chronic ulcer of back with unspecified severity Status: Acute Assessment and Plan: Patient has a sacral ulcer -appreciate wound care evaluation and recommendations 02/17: CT abdomen and pelvis: Small amount of fat stranding with a few locules of air about the posterior aspect of the mid and distal sacrum. No obvious loculated fluid collection identified. No convincing CT evidence for sacral osteomyelitis at this time. (7) Severe protein-calorie malnutrition: Code(s): E43 - Unspecified severe protein-calorie malnutrition Status: Acute Assessment and Plan: According to the niece patient has lost lot of weight since August 2024, initially she stated he unable to feed himself due to his neuropathy and was not being adequately fed at the prison, after this surgery and when he was able to move his arms he stated he was not eating well because he was not hungry. -patient's BMI is 18.3, given his height, age, gender he does classify into severe protein calorie malnutrition -appreciate dietitian evaluation recommendations -continue tube feeds. Advance to goal today -continue thiamine and folic acid. Contain MVI -continue Reglan (8) Electrolyte imbalance: Code(s): E87.8 - Other disorders of electrolyte and fluid balance, not elsewhere classified Status: Acute Assessment and Plan: Hypernatremia improved. Off D5 water. Continue increased free water flushes Replace low potassium Diamox IV for mixed alkalosis Nephrology following (9) Constipation: Code(s): K59.00 - Constipation, unspecified Status: Acute Assessment and Plan: Large amount of stool in the rectal vault as seen on the CT scan of the abdomen and pelvis -patient has not had a bowel movement -02/20: Soapsuds enema was given without much improved -patient was given lactulose enema -continue MiraLax, bisacodyl and senna S -patient is having bowel movements now (10) Weakness: Code(s): R53.1 - Weakness Status: Acute Assessment and Plan: Patient had cervical myelopathy and had some ankle surgery with fusion and instrumentation early this year since then patient has been mostly bedbound. Family states the patient was already seen in prison in the bed and few times a wheelchair. He has significant weakness in both arms and legs. They also state that he had poor p.o. intake and had trouble and difficulty with the eating. Plan DVT prophylaxis: Heparin subQ Stress ulcer prophylaxis: Protonix Nutrition: Continue tube feeds at goal of 70 mL/hour I spoke to patient's niece at bedside and updated her with patient's current status. I discussed option of tracheostomy and PEG tube placement. She spoke to patient and her other family members and wants to proceed with trach and PEG. I have consulted ENT and GI. Code Status: Full code Critical Care Time Spent: 30 minutes Due to a high probability of clinically significant, life threatening deterioration, the patient required my highest level of preparedness to intervene emergently and I personally spent this critical care time directly and personally managing the patient. This critical care time included obtaining a history; examining the patient; pulse oximetry; ordering and review of studies; arranging urgent treatment with development of a management plan; evaluation of patient's response to treatment; frequent reassessment; and discussions with other providers. It was exclusive of separately billable procedures and treating other patients and teaching time. Please see Assessment and Plan section and the rest of the note for further information on patient assessment and treatment This dictation may have been done utilizing a voice recognition system. Attempts have been made to correct errors. However, there may be uncorrected grammatical, spelling, and recognitions errors present. Subjective Date/time seen: 02/28/25 Overnight events reviewed. Afebrile Continues to be on mechanical ventilation 30% FiO2 Tolerating tube feeds at goal. Good urine output. Continues to be sedated with low-dose Precedex Other Vitals acceptable Interval history: Reason for consult: Septic shock, acute respiratory failure, pneumonia, UTI, lactic acidosis, altered mental status 64yo male with HLD, DM and Asthma who presents with altered mental status and hypoxia from his prison. Rapid response called once patient arrived to IMU for being hypoxic. Transferred to the ICU and emergently intubated by ER physician Review of Systems Review of Systems: ROS unobtainable: Yes unobtainable due to endotracheal tube, unobtainable due to medical condition and unobtainable due to mental status Exam Narrative: General: intubated and sedated, in no acute distress HEENT:? Pupils equal and reactive, sclera is clear, ETT in place Neck:? Supple Respiratory:? Coarse breath sounds bilaterally, decreased at bases, no wheezing, adequate air entry Cardiac:? S1-S2 is normal, sinus tachycardia Abdomen:? Scaphoid abdomen, soft, nontender, hypoactive bowel sounds, patient cachectic and malnourished, patient has a sacral decubitus ulcer Extremities:? No edema, decreased pedal pulses Neuro:? Patient is intubated, off sedation, opens his eyes to name and follows simple commands with all 4 extremities but appears to be very weak, PERRL Skin:? old healing ulcers on the feet bilaterally Psych:? Unable to assess at this time Objective Data Vital Signs Vital Signs: Vital Signs - 24 hr 02/27/25 08:55 02/27/25 10:00 02/27/25 10:00 Temperature 37.7 C H Pulse Rate 76 95 95 Respiratory Rate 22 H Blood Pressure 92/57 L Pulse Oximetry 94 93 Oxygen Delivery Mechanical Ventilation Fraction of Inspired Oxygen 30 02/27/25 10:00 02/27/25 11:45 02/27/25 11:50 Temperature Pulse Rate 95 79 82 Respiratory Rate 22 H Blood Pressure Pulse Oximetry 93 95 Oxygen Delivery Mechanical Ventilation Mechanical Ventilation Fraction of Inspired Oxygen 30 30 02/27/25 12:00 02/27/25 12:00 02/27/25 12:00 Temperature 37.5 C Pulse Rate 82 82 Respiratory Rate 23 H 23 H Blood Pressure 96/58 L Pulse Oximetry 95 Oxygen Delivery Fraction of Inspired Oxygen 30 02/27/25 12:00 02/27/25 12:00 02/27/25 14:00 Temperature 37.3 C Pulse Rate 83 95 92 Respiratory Rate 25 H 24 H Blood Pressure 99/55 L Pulse Oximetry 95 93 Oxygen Delivery Mechanical Ventilation Fraction of Inspired Oxygen 30 02/27/25 14:00 02/27/25 14:00 02/27/25 14:47 Temperature Pulse Rate 92 92 93 Respiratory Rate 24 H Blood Pressure Pulse Oximetry 94 Oxygen Delivery Mechanical Ventilation Fraction of Inspired Oxygen 40 02/27/25 14:47 02/27/25 16:00 02/27/25 16:00 Temperature 37.6 C Pulse Rate 93 98 98 Respiratory Rate 20 24 H 24 H Blood Pressure 98/52 L Pulse Oximetry 95 Oxygen Delivery Fraction of Inspired Oxygen 02/27/25 16:00 02/27/25 16:00 02/27/25 16:00 Temperature Pulse Rate 96 83 Respiratory Rate 28 H Blood Pressure Pulse Oximetry 95 Oxygen Delivery Mechanical Ventilation Fraction of Inspired Oxygen 40 30 02/27/25 17:30 02/27/25 18:00 02/27/25 18:00 Temperature 37.1 C Pulse Rate 98 92 92 Respiratory Rate 23 H Blood Pressure 90/54 L Pulse Oximetry 95 96 Oxygen Delivery Mechanical Ventilation Fraction of Inspired Oxygen 40 02/27/25 18:00 02/27/25 19:16 02/27/25 19:16 Temperature Pulse Rate 92 89 89 Respiratory Rate 23 H 28 H 28 H Blood Pressure Pulse Oximetry Oxygen Delivery Fraction of Inspired Oxygen 02/27/25 20:00 02/27/25 20:00 02/27/25 20:00 Temperature 36.8 C Pulse Rate 92 91 92 Respiratory Rate 27 H 27 H Blood Pressure 98/64 L Pulse Oximetry 98 Oxygen Delivery Fraction of Inspired Oxygen 02/27/25 20:00 02/27/25 20:18 02/27/25 22:00 Temperature Pulse Rate 91 93 Respiratory Rate 28 H Blood Pressure Pulse Oximetry 98 Oxygen Delivery Mechanical Ventilation Fraction of Inspired Oxygen 30 30 02/27/25 22:00 02/27/25 22:00 02/27/25 22:56 Temperature Pulse Rate 93 93 93 Respiratory Rate 28 H Blood Pressure 117/68 Pulse Oximetry 94 93 Oxygen Delivery Mechanical Ventilation Fraction of Inspired Oxygen 30 02/28/25 00:00 02/28/25 00:00 02/28/25 00:00 Temperature 37.2 C Pulse Rate 96 96 Respiratory Rate 24 H 24 H Blood Pressure 126/73 Pulse Oximetry 95 Oxygen Delivery Fraction of Inspired Oxygen 30 02/28/25 00:00 02/28/25 02:00 02/28/25 02:00 Temperature Pulse Rate 96 92 92 Respiratory Rate 27 H Blood Pressure 124/76 Pulse Oximetry 94 Oxygen Delivery Fraction of Inspired Oxygen 02/28/25 02:00 02/28/25 02:15 02/28/25 04:00 Temperature 37.3 C Pulse Rate 92 95 91 Respiratory Rate 27 H 17 Blood Pressure 128/77 Pulse Oximetry 92 94 Oxygen Delivery Mechanical Ventilation Fraction of Inspired Oxygen 30 02/28/25 04:00 02/28/25 04:00 02/28/25 04:00 Temperature Pulse Rate 95 91 Respiratory Rate 17 Blood Pressure Pulse Oximetry Oxygen Delivery Fraction of Inspired Oxygen 30 02/28/25 04:52 02/28/25 06:00 02/28/25 06:00 Temperature Pulse Rate 93 86 86 Respiratory Rate 23 H Blood Pressure 117/63 Pulse Oximetry 93 96 Oxygen Delivery Mechanical Ventilation Fraction of Inspired Oxygen 30 02/28/25 06:00 02/28/25 06:13 02/28/25 07:26 Temperature Pulse Rate 86 95 90 Respiratory Rate 23 H Blood Pressure Pulse Oximetry 92 100 Oxygen Delivery Mechanical Ventilation Mechanical Ventilation Fraction of Inspired Oxygen 30 30 02/28/25 07:48 02/28/25 08:00 02/28/25 08:00 Temperature 36.8 C Pulse Rate 86 90 90 Respiratory Rate 26 H 27 H Blood Pressure 146/74 H Pulse Oximetry 94 94 Oxygen Delivery Mechanical Ventilation Fraction of Inspired Oxygen 30 02/28/25 08:11 02/28/25 08:11 Temperature Pulse Rate 93 93 Respiratory Rate 33 H 33 H Blood Pressure Pulse Oximetry Oxygen Delivery Fraction of Inspired Oxygen Intake/Output Intake/Output: Intake & Output 02/25/25 02/26/25 02/27/25 02/28/25 23:59 23:59 23:59 23:59 Intake Total 4570.7 2746.4 1886.2 3118.7 Output Total 2800 4075 2300 1000 Balance 1770.7 -1328.6 -413.8 2118.7 Meds/Results Medications: Active Medications Generic Name Dose Route Start Last Admin Trade Name Freq PRN Reason Stop Dose Admin Acetaminophen 650 mg 02/17/25 20:19 02/27/25 20:09 Acetaminophen 325 Mg Tablet FEED TUBE 650 mg Q4H PRN Administration Mild Pain (1-3) or Fever Acetazolamide Sodium 250 mg 02/28/25 12:00 Acetazolamide Sodium For Inj 500 Mg Vial IV PUSH 02/28/25 12:01 ONCE ONE Alteplase, Recombinant 2 mg 02/21/25 22:45 02/21/25 23:00 Alteplase 2 Mg Vial (Cathflo) IV PUSH 2 mg ONCE PRN Administration Line Occlusion Bisacodyl 10 mg 02/24/25 09:00 02/28/25 08:11 Bisacodyl 10 Mg Suppository RECTAL 10 mg QAM KENNETH Administration Dextrose 12.5 gm 02/17/25 21:35 Dextrose 50% 25 Gm/50 Ml Syringe IV PUSH PRN PRN Hypoglycemia Protocol Folic Acid 1 mg 02/19/25 09:00 02/28/25 08:21 Folic Acid 1 Mg/0.2 Ml Inj IV PUSH 1 mg QAM KENNETH Administration Glucagon 1 mg 02/17/25 21:35 Glucagon For Inj 1 Mg Vial IM PRN PRN Hypoglycemia Protocol Glucose 15 gm 02/17/25 21:35 Glucose Oral Gel 15 Gm Of Glucse In 37.5 Gm Tube PO PRN PRN Hypoglycemia Protocol Heparin Sodium (Porcine) 5,000 units 02/18/25 14:00 02/28/25 05:54 Heparin Sodium 5,000 Units/Ml Vial SUB-Q 5,000 units Q8HR KENNETH Administration Hydralazine HCl 10 mg 02/21/25 19:36 02/22/25 00:00 Hydralazine Hcl 20 Mg/Ml Vial IV PUSH 10 mg Q6H PRN Administration Blood Pressure - High Hyoscyamine 0.125 mg 02/25/25 22:25 02/27/25 20:09 Hyoscyamine Sulfate Soln 0.125 Mg/Ml Oral Syringe PO 0.125 mg Q4H PRN Administration Abdominal Cramping Dextrose 1,000 mls @ 100 mls/hr 02/17/25 21:35 Dextrose 5% 1,000 Ml IVPB PRN PRN Hypoglycemia Protocol Dexmedetomidine HCl 400 mcg in 100 mls @ 6.57 mls/hr 02/22/25 07:40 02/28/25 08:11 Precedex 400 Mcg/100 Ml IV CONT 0.4 mcg/kg/hr .[id number] KENNETH 6.57 mls/hr Protocol Administration 0.4 MCG/KG/HR Potassium Chloride 100 mls @ 25 mls/hr 02/28/25 08:00 02/28/25 08:00 Kcl 40 Meq/Water 100 Ml IVPB 02/28/25 11:59 25 mls/hr ONCE ONE Administration Insulin Aspart 3 - 6 units 02/18/25 00:00 02/28/25 08:08 Insulin Aspart (*Bkc) 100 Units/Ml SUB-Q 3 units Q4HR KENNETH Administration Protocol Insulin Glargine 20 units 02/28/25 09:00 02/28/25 08:09 Insulin Glargine (*Bkc) 100 Units/Ml SUB-Q 20 units QAM KENNETH Administration Ipratropium [place] 0.5 mg 02/22/25 07:33 02/27/25 14:47 Ipratropium Br 0.02% Inh Soln 0.5 Mg/2.5 Ml Vial INHALATION 0.5 mg Q6HRT PRN Administration Wheezing Levalbuterol HCl 0.63 mg 02/22/25 07:33 02/27/25 14:48 Levalbuterol Neb 1.25 Mg/3 Ml INHALATION 0.63 mg Q6HRT PRN Administration Wheezing Metoclopramide HCl 10 mg 02/19/25 12:00 02/28/25 05:55 Metoclopramide Hcl Inj 10 Mg/2 Ml Vial IV PUSH 10 mg Q6HR KENNETH Administration Miscellaneous Information 1 each 02/28/25 00:01 02/28/25 07:59 Please Renew Dexmedetomidine . Per [employer] Procedure, It Will Discontinue If Not Renewed XX 03/30/25 00:00 Not Given CLARIFY KENNETH Multi-Ingred Cream/Lotion/Oil/Oint 1 applic 02/17/25 21:00 02/28/25 08:11 Mineral Oil/White Petrolatum Ointment EACH EYE Not Given Q12HR KENNETH Multivitamins Therapeutic 1 tablet 02/23/25 10:00 02/28/25 08:08 Multivitamins Therapeutic Tab (*Bkc) FEED TUBE 1 tablet QAM KENNETH Administration Pantoprazole Sodium 40 mg 02/18/25 09:00 02/28/25 08:09 Pantoprazole Sodium Iv 40 Mg Vial IV PUSH 40 mg Q12HR KENNETH Administration Polyethylene Glycol 17 gm 02/21/25 09:00 02/28/25 08:08 Polyethylene Glycol 3350 17 Gm Powd.Pack PO 17 gm QAM KENNETH Administration Senna/Docusate Sodium 1 tab 02/17/25 21:00 02/27/25 20:09 Senna/Docusate Sodium Tablet FEED TUBE 1 tab HS KENNETH Administration Sodium Chloride 10 ml 02/18/25 22:00 02/28/25 05:55 Central Line Flush IV PUSH 10 ml Q8HR KENNETH Administration Sodium Chloride 20 ml 02/18/25 16:07 02/20/25 05:33 Central Line Flush IV PUSH 20 ml PRN PRN Administration after blood draws Thiamine HCl 100 mg 02/19/25 09:00 02/28/25 08:09 Thiamine Hcl 200 Mg/2 Ml Vial IV PUSH 100 mg QAM KENNETH Administration Radiology Results: ITS Impressions Head CT 02/17/25 16:55 IMPRESSION: 1. No acute intracranial hemorrhage. No mass effect. 2. Probable chronic ischemic white matter change. Chest/Abdomen/Pelvis CT 02/17/25 17:11 IMPRESSION: 1. Moderate sized groundglass opacities scattered throughout both lungs most prominent in the lower lobes. In addition, there are small to moderate sized patchy consolidations scattered throughout both lungs most prominent in the lower lobes. The findings are concerning for multilobar pneumonia. Other etiologies are possible but are felt to be less likely. Recommend follow-up to resolution. 2.There is a Daniels catheter in the bladder. Mild concentric thickening of the calvo of the bladder. Small amount of nondependent air in the bladder which may be due to recent instrumentation or cystitis. 3. Large amount of stool in the rectum. 4. The stomach is distended and filled with air. 5. Small amount of fat stranding with a few locules of air about the posterior aspect of the mid and distal sacrum. No obvious loculated fluid collection identified. No convincing CT evidence for sacral osteomyelitis at this time. Abdomen Ultrasound 02/19/25 13:00 Impression: Limited study. No acute process Abdomen X-Ray 02/20/25 10:54 IMPRESSION: 1. No acute abdominal abnormality. 2: Bibasilar infiltrates may represent edema or pneumonia. Renal Ultrasound 02/20/25 17:18 IMPRESSION: 1. Normal kidneys without hydronephrosis. 2. Diffuse trabeculated bladder wall thickening suggestive of sequela of chronic outlet obstruction. Chest X-Ray 02/28/25 07:21 IMPRESSION: 1. Endotracheal tube tip 6.4 cm above the jacobo. Recommend 4 cm advancement. 2. No change in airspace opacity left lower lung zone which could represent atelectasis or pneumonia. Labs Labs: Laboratory Results - last 24 hr 02/27/25 02/27/25 02/27/25 12:36 17:24 19:54 WBC RBC Hgb Hct MCV MCH MCHC RDW Plt Count MPV Puncture Site ABG pH ABG pCO2 ABG pO2 ABG PO2/FiO2 Ratio ABG HCO3 ABG O2 Saturation ABG O2 Content ABG Base Excess A-a Gradient Oxyhemoglobin Carboxyhemoglobin Methemoglobin Reduced Hemoglobin Total Hemoglobin O2 Delivery Device O2 Liters/Min Minute Volume Vent Rate Vent Mode FiO2 Tidal Volume PEEP Peak Inspir Pressure Pressure Support Sodium Potassium Chloride Carbon Dioxide Anion Gap BUN Creatinine Estim Creat Clear Calc Estimated GFR Glucose POC Capillary Glucose 196 H 242 H 225 H Calcium Phosphorus Magnesium Total Bilirubin AST ALT Alkaline Phosphatase Total Protein Albumin 02/28/25 02/28/25 02/28/25 00:08 04:26 04:26 WBC 13.7 H RBC 2.76 L Hgb 7.3 L Hct 24.0 L MCV 87.0 MCH 26.4 MCHC 30.4 L RDW 17.1 H Plt Count 247 MPV 10.0 Puncture Site ABG pH ABG pCO2 ABG pO2 ABG PO2/FiO2 Ratio ABG HCO3 ABG O2 Saturation ABG O2 Content ABG Base Excess A-a Gradient Oxyhemoglobin Carboxyhemoglobin Methemoglobin Reduced Hemoglobin Total Hemoglobin O2 Delivery Device O2 Liters/Min Minute Volume Vent Rate Vent Mode FiO2 Tidal Volume PEEP Peak Inspir Pressure Pressure Support Sodium 142 Potassium 3.4 Chloride 109 H Carbon Dioxide 33 H Anion Gap 0 L BUN 22 H Creatinine 0.30 L Estim Creat Clear Calc 191 Estimated GFR > 60 Glucose 239 H POC Capillary Glucose 258 H Calcium 8.0 L Phosphorus 2.9 Cancelled Magnesium 1.9 Total Bilirubin 0.3 AST 26 ALT 36 Alkaline Phosphatase 148 H Total Protein 5.3 L Albumin 2.3 L 02/28/25 02/28/25 04:45 07:55 WBC RBC Hgb Hct MCV MCH MCHC RDW Plt Count MPV Puncture Site Right radial ABG pH 7.532 H* ABG pCO2 36.6 ABG pO2 76.6 L ABG PO2/FiO2 Ratio 2.55 ABG HCO3 30.0 H ABG O2 Saturation 96.6 ABG O2 Content 11.2 L ABG Base Excess 6.9 A-a Gradient 94.3 Oxyhemoglobin 94.2 Carboxyhemoglobin 0.9 Methemoglobin 0.3 Reduced Hemoglobin 4.6 Total Hemoglobin 8.4 L O2 Delivery Device Ventilator O2 Liters/Min Not Reportable Minute Volume Not Reportable Vent Rate 12 Vent Mode Cmv FiO2 30 Tidal Volume 350 PEEP 5 Peak Inspir Pressure Not Reportable Pressure Support Not Reportable Sodium Potassium Chloride Carbon Dioxide Anion Gap BUN Creatinine Estim Creat Clear Calc Estimated GFR Glucose POC Capillary Glucose 211 H Calcium Phosphorus Magnesium Total Bilirubin AST ALT Alkaline Phosphatase Total Protein Albumin Quality VTE Prophylaxis VTE prophylaxis: pharmacologic ordered
--- NOTE | 2025-02-28 10:25 | PCFNICU ---
ICU Rounding Note: Pt current nutrition is Vital AF 1.2 @ goal rate 70 ml/h with flushes 200 ml q 4 h. Nutrition recommendation: No new recommendations. Continue current nutrition care plan and orders. Last recorded weight is 71.6 kg. Improved - up +34 lbs since admission. Pt was very thin and malnourished upon admission, was not getting fed at NH per family Bowel Motility: BM +1 02/28. Bowel regimen in place Labs Reviewed: Hgb 7.3, Hct 24, Alb 2.3, BUN 22, Cre 0.3, Glu 239 Meds Noted: Senna, Reglan, MVI, thiamine, folic acid, prededex, miralax Skin: Stage 3 pressure injury to sacrum Additional Notes: Continues on vent at goal rate Vital AF 1.2 @ 70 ml/h to provide 1848 kcal, 115 g protein, 1249 ml free water. Meets needs @ 26 kcal/kg, 1.6 g protein/kg. Adequate for needs. Flushes 200 ml q 4 h per MD. Adequate for needs. Agree with current orders. Following daily in ICU rounds. Will monitor weight, labs, skin, diet orders, meds every Friday and Friday. .
--- NOTE | 2025-02-28 11:16 | WPDGICN ---
Assessment and Plan Assessment and plan (1) Severe protein-calorie malnutrition: Code(s): E43 - Unspecified severe protein-calorie malnutrition Status: Acute (2) Diabetes: Qualifiers: Diabetes mellitus complication detail: with other skin ulcer Diabetes mellitus complication status: with skin complications Diabetes mellitus half-way insulin use: with manager terminal use Diabetes mellitus type: other specified (including JODEE) Qualified Code(s): E13.622 - Other specified diabetes mellitus with other skin ulcer; Z79.4 - detention (current) use of insulin Code(s): E11.9 - Type 2 diabetes mellitus without complications Status: Acute (3) Constipation: Qualifiers: Constipation type: other constipation type Qualified Code(s): K59.09 - Other constipation Code(s): K59.00 - Constipation, unspecified Status: Acute (4) Weight loss: Code(s): R63.4 - Abnormal weight loss Status: Acute (5) Sacral ulcer: Qualifiers: Non-pressure ulcer stage: unspecified non-pressure ulcer stage Qualified Code(s): L98.429 - Non-pressure chronic ulcer of back with unspecified severity Code(s): L98.429 - Non-pressure chronic ulcer of back with unspecified severity Status: Acute Plan 1. Severe protein calorie malnutrition/PEG tube placement/weight loss/diabetes/pressure ulcer: CT showed the stomach is distended and filled with air. Patient needs increased protein intake to help with wound repair and stable PO intake given diabetes. Per molder machine tender note the patient's niece states that he has been losing weight since August 2024 due to inability to feed himself and poor appetite. BMI @ 18.3. Patient is currently receiving Vital 1.2 70 ml/hr. Plan for PEG placement tomorrow NPO and hold tube feedings after midnight 2. Constipation: CT showed large amount of stool in the rectum. Patient was given lactulose enema and is on Miralax, Bisacodyl and Senna. Patient is now having BM's Continue bowel regimen Thank you very much for allowing me to share in the care of this very nice patient. This report may have been done utilizing a voice recognition system. Attempts have been made to correct errors. However, there may be uncorrected grammatical, spelling, and recognition errors present. GI Consult Note Consult date/time: 09/08/25 11:16 Reason for consult: PEG placement HPI: Toni Gates is a 64 year old male with history of asthma, diabetes, Hx of cardiac catheterization and lumbosacral spine surgery who presented to the ER 02/17/2025 from [facility] for AMS and hypoxia. Patient was admitted for acute respiratory distress, pneumonia and UTI. GI has been consulted for PEG tube placement. Patient is intubated but alert and unable to provide subjective information or past medical history. ENDOSCOPY HISTORY: EGD and colonoscopy history unknown LABS AND STOOL STUDIES: Labs 02/28/2025: Sodium 142, potassium 3.4, BUN 22, creatinine 0.30, GFR >60, calcium 8.0 WBC 14, Hgb 7, Hct 24, MCV 87, platelets 247, INR 1.7 (02/19/2025) Total bilirubin 0.3, AST 26, ALT 36, Alkaline Phos 148, albumin 2.3 IMAGING: Chest Xray 02/28/2025: IMPRESSION: 1. Lines and tubes in expected positions. 2. Persistent opacity left lower lung zone which could represent atelectasis or pneumonia. Abdominal Ultrasound 02/19/2025: Findings: LIVER: Liver limited by bowel gas. . GALLBLADDER/BILIARY: Gallbladder not visualized. CBD 3.2 mm. PANCREAS: Pancreas limited by bowel gas. Right Kidney: The right kidney was not demonstrated. Impression: Limited study. No acute process CT chest/abdomen/pelvis w/contrast 02/17/2025: IMPRESSION: 1. Moderate sized groundglass opacities scattered throughout both lungs most prominent in the lower lobes. In addition, there are small to moderate sized patchy consolidations scattered throughout both lungs most prominent in the lower lobes. The findings are concerning for multilobar pneumonia. Other etiologies are possible but are felt to be less likely. Recommend follow-up to resolution. 2.There is a Daniels catheter in the bladder. Mild concentric thickening of the calvo of the bladder. Small amount of nondependent air in the bladder which may be due to recent instrumentation or cystitis. 3. Large amount of stool in the rectum. 4. The stomach is distended and filled with air. 5. Small amount of fat stranding with a few locules of air about the posterior aspect of the mid and distal sacrum. No obvious loculated fluid collection identified. No convincing CT evidence for sacral osteomyelitis at this time. Review of Systems Review of Systems: ROS unobtainable: Yes unobtainable due to endotracheal tube, unobtainable due to medical condition and unobtainable due to mental status PMFSH Past Medical History Medical History (Updated 02/28/25 @ 11:31 by Patricia Del Valle APRN) Elevated alkaline phosphatase measurement History of left heart catheterization Elevated lipids Diabetes Asthma Arthritis Surgical History Surgical History History of lumbosacral spine surgery Family History Family History Mother Family history of primary malignant neoplasm of liver, Onset Age: 69 Social History Social History Smoking status: Former smoker Alcohol intake: never Substance use: never Lack of Transportation: No Lack of Food: Never True Current Housing: I Have Housing Concerned About Future Housing: No Difficulty Paying Gas/Electric Bills: No Difficulty Paying for Meds: No Currently Unemployed: No Education: Grade School Difficulty w/ Childcare or Family Care: No Spiritual care concerns: No Meds Home Medications and Allergies Home Medications ?Medication ?Instructions ?Recorded ?Confirmed ?Type aspirin 81 mg tablet,delayed 81 mg PO DAILY 06/01/19 02/18/25 History release cyclobenzaprine 10 mg tablet 10 mg PO Q8H 06/01/19 02/18/25 History metformin 1,000 mg tablet 1,000 mg PO BID 06/01/19 02/18/25 History insulin glargine 100 unit/mL (3 20 unit subcut HS 01/05/20 02/18/25 History mL) subcutaneous pen (Lantus Solostar U-100 Insulin) acetaminophen 500 mg tablet 1,000 mg PO Q6H PRN pain 02/18/25 02/18/25 History albuterol sulfate 90 mcg/actuation 2 inh inhalation Q6H PRN shortness 02/18/25 02/18/25 History breath activated powder of breath inhaler,sensor (Proair Digihaler) ascorbic acid (vitamin C) 500 mg 500 mg PO DAILY 02/18/25 02/18/25 History tablet docusate sodium 100 mg tablet 100 mg PO BID 02/18/25 02/18/25 History docusate sodium 100 mg tablet 100 mg PO Q12H PRN constipation 02/18/25 02/18/25 History empagliflozin 25 mg tablet 25 mg PO DAILY 02/18/25 02/18/25 History (Jardiance) ergocalciferol (vitamin D2) 50 mcg 50 mcg PO DAILY 02/18/25 02/18/25 History (2,000 unit) tablet ferrous sulfate 325 mg (65 mg 325 mg PO DAILY 02/18/25 02/18/25 History iron) tablet (Xiomy-Time) fluticasone propionate 50 2 spray intranasal DAILY 02/18/25 02/18/25 History mcg/actuation nasal spray,suspension melatonin 3 mg tablet 3 mg PO HS PRN insomnia 02/18/25 02/18/25 History multivitamin with iron-mineral 1 tablet PO DAILY 02/18/25 02/18/25 History nifedipine 30 mg tablet,extended 30 mg PO .qday 02/18/25 02/18/25 History release 24 hr ropinirole 1 mg tablet 1 mg PO DAILY 02/18/25 02/18/25 History Allergies Allergy/AdvReac Type Severity Reaction Status Date / Time codeine Allergy Unknown Unknown Verified 12/16/24 18:40 Vital Signs Vital Signs - 24 hr 02/27/25 11:45 02/27/25 11:50 02/27/25 12:00 Temperature 99.5 F Pulse Rate 79 82 82 Respiratory Rate 23 H Blood Pressure 96/58 L Pulse Oximetry 93 95 95 Oxygen Delivery Mechanical Ventilation Mechanical Ventilation Fraction of Inspired Oxygen 30 02/27/25 12:00 02/27/25 12:00 02/27/25 12:00 Temperature Pulse Rate 82 83 Respiratory Rate 23 H Blood Pressure Pulse Oximetry Oxygen Delivery Fraction of Inspired Oxygen 02/27/25 12:00 02/27/25 14:00 02/27/25 14:00 Temperature 99.1 F Pulse Rate 95 92 92 Respiratory Rate 25 H 24 H 24 H Blood Pressure 99/55 L Pulse Oximetry 95 93 Oxygen Delivery Mechanical Ventilation Fraction of Inspired Oxygen 30 02/27/25 14:00 02/27/25 14:47 02/27/25 14:47 Temperature Pulse Rate 92 93 93 Respiratory Rate 20 Blood Pressure Pulse Oximetry 94 Oxygen Delivery Mechanical Ventilation Fraction of Inspired Oxygen 40 02/27/25 16:00 02/27/25 16:00 02/27/25 16:00 Temperature 99.6 F Pulse Rate 98 98 Respiratory Rate 24 H 24 H Blood Pressure 98/52 L Pulse Oximetry 95 Oxygen Delivery Fraction of Inspired Oxygen 40 02/27/25 16:00 02/27/25 16:00 02/27/25 17:30 Temperature Pulse Rate 96 83 98 Respiratory Rate 28 H Blood Pressure Pulse Oximetry 95 95 Oxygen Delivery Mechanical Ventilation Mechanical Ventilation Fraction of Inspired Oxygen 30 40 02/27/25 18:00 02/27/25 18:00 02/27/25 18:00 Temperature 98.8 F Pulse Rate 92 92 92 Respiratory Rate 23 H 23 H Blood Pressure 90/54 L Pulse Oximetry 96 Oxygen Delivery Fraction of Inspired Oxygen 02/27/25 19:16 02/27/25 19:16 02/27/25 20:00 Temperature Pulse Rate 89 89 92 Respiratory Rate 28 H 28 H 27 H Blood Pressure Pulse Oximetry Oxygen Delivery Fraction of Inspired Oxygen 02/27/25 20:00 02/27/25 20:00 02/27/25 20:00 Temperature 98.2 F Pulse Rate 91 92 Respiratory Rate 27 H Blood Pressure 98/64 L Pulse Oximetry 98 Oxygen Delivery Fraction of Inspired Oxygen 30 02/27/25 20:18 02/27/25 22:00 02/27/25 22:00 Temperature Pulse Rate 91 93 93 Respiratory Rate 28 H 28 H Blood Pressure 117/68 Pulse Oximetry 98 94 Oxygen Delivery Mechanical Ventilation Fraction of Inspired Oxygen 30 02/27/25 22:00 02/27/25 22:56 02/28/25 00:00 Temperature Pulse Rate 93 93 96 Respiratory Rate 24 H Blood Pressure Pulse Oximetry 93 Oxygen Delivery Mechanical Ventilation Fraction of Inspired Oxygen 30 02/28/25 00:00 02/28/25 00:00 02/28/25 00:00 Temperature 99 F Pulse Rate 96 96 Respiratory Rate 24 H Blood Pressure 126/73 Pulse Oximetry 95 Oxygen Delivery Fraction of Inspired Oxygen 30 02/28/25 02:00 02/28/25 02:00 02/28/25 02:00 Temperature Pulse Rate 92 92 92 Respiratory Rate 27 H 27 H Blood Pressure 124/76 Pulse Oximetry 94 Oxygen Delivery Fraction of Inspired Oxygen 02/28/25 02:15 02/28/25 04:00 02/28/25 04:00 Temperature 99.2 F Pulse Rate 95 91 Respiratory Rate 17 Blood Pressure 128/77 Pulse Oximetry 92 94 Oxygen Delivery Mechanical Ventilation Fraction of Inspired Oxygen 30 30 02/28/25 04:00 02/28/25 04:00 02/28/25 04:52 Temperature Pulse Rate 95 91 93 Respiratory Rate 17 Blood Pressure Pulse Oximetry 93 Oxygen Delivery Mechanical Ventilation Fraction of Inspired Oxygen 30 02/28/25 06:00 02/28/25 06:00 02/28/25 06:00 Temperature Pulse Rate 86 86 86 Respiratory Rate 23 H 23 H Blood Pressure 117/63 Pulse Oximetry 96 Oxygen Delivery Fraction of Inspired Oxygen 02/28/25 06:13 02/28/25 07:26 02/28/25 07:48 Temperature Pulse Rate 95 90 86 Respiratory Rate Blood Pressure Pulse Oximetry 92 100 94 Oxygen Delivery Mechanical Ventilation Mechanical Ventilation Mechanical Ventilation Fraction of Inspired Oxygen 30 30 30 02/28/25 08:00 02/28/25 08:00 02/28/25 08:00 Temperature 98.2 F Pulse Rate 90 90 Respiratory Rate 26 H 27 H Blood Pressure 146/74 H Pulse Oximetry 94 Oxygen Delivery Mechanical Ventilation Fraction of Inspired Oxygen 02/28/25 08:00 02/28/25 08:00 02/28/25 08:11 Temperature Pulse Rate 89 93 Respiratory Rate 33 H Blood Pressure Pulse Oximetry Oxygen Delivery Fraction of Inspired Oxygen 30 02/28/25 08:11 02/28/25 10:00 02/28/25 10:00 Temperature 98.9 F Pulse Rate 93 84 83 Respiratory Rate 33 H 25 H 26 H Blood Pressure 119/62 Pulse Oximetry 96 Oxygen Delivery Fraction of Inspired Oxygen 02/28/25 10:00 Temperature Pulse Rate 83 Respiratory Rate Blood Pressure Pulse Oximetry Oxygen Delivery Fraction of Inspired Oxygen Exam Const: General: comfortable and no acute distress HENMT: Face/Nose/Sinus: Normal nares present Mouth: Yes moist mucous membranes Eyes: Sclera: sclerae normal Pupils: Equal, round and reactive pupils present Neck: Neck: supple and no JVD Resp: Effort & Inspection: normal respiratory effort (on vent) Cardio: Rate: regular rate Rhythm: regular rhythm GI: Inspection: distended GI Palp: Yes Soft to palpation Auscultation: normal bowel sounds Urinary Catheter: Urinary Catheter: patent and draining (suprapubic) Skin: Wounds: wounds noted Results Labs 03/01/25 05:11 03/01/25 05:11 Labs: Short CBC 02/28/25 Range/Units 04:26 WBC 13.7 H (4.5-10.0) K/mm3 Hgb 7.3 L (14.0-18.0) g/dL Hct 24.0 L (42.0-52.0) % Plt Count 247 (150-375) k/mm3 [facility] 02/28/25 04:26 Sodium 142 Potassium 3.4 Chloride 109 H Carbon Dioxide 33 H BUN 22 H Creatinine 0.30 L Glucose 239 H Calcium 8.0 L Liver Function 02/28/25 Range/Units 04:26 Total Bilirubin 0.3 (0.2-1.3) mg/dL AST 26 (17-59) U/L ALT 36 (6-50) U/L Alkaline Phosphatase 148 H (38-126) U/L Albumin 2.3 L (3.5-5.1) g/dL
[2025-02-28] MEDS: acetaZOLAMIDE SODIUM FOR INJ 500 MG VIAL 250 MG IV PUSH (12:13)
--- NOTE | 2025-02-28 12:47 | P.PNIM_ITS ---
Progress Note: A&P Assessment and Plan (1) Severe protein-calorie malnutrition: Code(s): E43 - Unspecified severe protein-calorie malnutrition Status: Acute (2) Septic shock: Code(s): A41.9 - Sepsis, unspecified organism; R65.21 - Severe sepsis with septic shock Status: Acute (3) Pneumonia: Code(s): J18.9 - Pneumonia, unspecified organism Status: Acute (4) Acute respiratory failure: Code(s): J96.00 - Acute respiratory failure, unspecified whether with hypoxia or hypercapnia Status: Acute (5) Acute UTI: Code(s): N39.0 - Urinary tract infection, site not specified Status: Acute Plan Patient presented with altered mental status shortness of breath. Initially had leukocytosis received IV fluid resuscitation and was transferred to IMU however immediately upon arrival to IMU rapid response was called due to hypoxia tachypnea tachycardia was transferred to ICU. Septic shock requiring vasopressors which now off. Preliminary blood cultures negative x2. Urine culture grew use superficial organisms. Sputum culture grew Klebsiella MRSA and Dolores tropicalis. Nasal MRSA was positive. On cefepime and vancomycin since 02/17. Completed course of doxycycline Acute respiratory failure emergently intubated likely secondary to multifocal pneumonia. Daily SBT trial as per senior consultant. Failed weaning. Plan for tracheostomy and PEG tube placement per senior consultant. CT chest abdomen pelvis with moderate size ground-glass opacities scattered throughout both lungs prominent in lower lobes. Small to moderate-sized patchy consultation scattered throughout both lungs most prominent in the lower lobes. Finding concerning for multi focal pneumonia. Multifocal pneumonia as noted above UTI Type 2 diabetes SSI Sacral decubitus ulcer continue wound care. CT negative for osteomyelitis Metabolic acidosis Protein calorie mild nutrition on tube feeds MVI thiamine folic acid Electrolyte imbalance continue to monitor Constipation large amount of stool in rectal vault S in the CT of the abdomen pelvis. Needed enema now resolved Generalized weakness History of cervical myelopathy DVT prophylaxis heparin subQ Nutrition tube feed Code status full code Subjective Date/time seen: 02/28/25 12:47 Interval history: No overnight events reported. Patient has been and currently on SBT trial. Plans for trach and PEG tube placement been made. Review of Systems Review of Systems: ROS unobtainable: Yes unobtainable due to endotracheal tube Exam Narrative: General: intubated and sedated, in no acute distress HEENT:? Pupils equal and reactive, sclera is clear, ETT in place Neck:? Supple Respiratory:? Coarse breath sounds bilaterally, decreased at bases, no wheezing, adequate air entry Cardiac:? S1-S2 is normal, sinus tachycardia Abdomen:? Scaphoid abdomen, soft, nontender, hypoactive bowel sounds, patient cachectic and malnourished, patient has a sacral decubitus ulcer Extremities:? No edema, decreased pedal pulses Neuro:? Patient is intubated, off sedation, opens his eyes to name and follows simple commands with all 4 extremities but appears to be very weak, PERRL Skin:? old healing ulcers on the feet bilaterally Psych:? Unable to assess at this time Objective Data Vital Signs Vital Signs: Vital Signs - 24 hr 02/27/25 14:00 02/27/25 14:00 02/27/25 14:00 Temperature 99.1 F Pulse Rate 92 92 92 Respiratory Rate 24 H 24 H Blood Pressure 99/55 L Pulse Oximetry 93 Oxygen Delivery Fraction of Inspired Oxygen 02/27/25 14:47 02/27/25 14:47 02/27/25 16:00 Temperature 99.6 F Pulse Rate 93 93 98 Respiratory Rate 20 24 H Blood Pressure 98/52 L Pulse Oximetry 94 95 Oxygen Delivery Mechanical Ventilation Fraction of Inspired Oxygen 40 02/27/25 16:00 02/27/25 16:00 02/27/25 16:00 Temperature Pulse Rate 98 96 Respiratory Rate 24 H 28 H Blood Pressure Pulse Oximetry 95 Oxygen Delivery Mechanical Ventilation Fraction of Inspired Oxygen 40 30 02/27/25 16:00 02/27/25 17:30 02/27/25 18:00 Temperature 98.8 F Pulse Rate 83 98 92 Respiratory Rate 23 H Blood Pressure 90/54 L Pulse Oximetry 95 96 Oxygen Delivery Mechanical Ventilation Fraction of Inspired Oxygen 40 02/27/25 18:00 02/27/25 18:00 02/27/25 19:16 Temperature Pulse Rate 92 92 89 Respiratory Rate 23 H 28 H Blood Pressure Pulse Oximetry Oxygen Delivery Fraction of Inspired Oxygen 02/27/25 19:16 02/27/25 20:00 02/27/25 20:00 Temperature 98.2 F Pulse Rate 89 92 91 Respiratory Rate 28 H 27 H 27 H Blood Pressure 98/64 L Pulse Oximetry 98 Oxygen Delivery Fraction of Inspired Oxygen 02/27/25 20:00 02/27/25 20:00 02/27/25 20:18 Temperature Pulse Rate 92 91 Respiratory Rate Blood Pressure Pulse Oximetry 98 Oxygen Delivery Mechanical Ventilation Fraction of Inspired Oxygen 30 30 02/27/25 22:00 02/27/25 22:00 02/27/25 22:00 Temperature Pulse Rate 93 93 93 Respiratory Rate 28 H 28 H Blood Pressure 117/68 Pulse Oximetry 94 Oxygen Delivery Fraction of Inspired Oxygen 02/27/25 22:56 02/28/25 00:00 02/28/25 00:00 Temperature 99 F Pulse Rate 93 96 96 Respiratory Rate 24 H 24 H Blood Pressure 126/73 Pulse Oximetry 93 95 Oxygen Delivery Mechanical Ventilation Fraction of Inspired Oxygen 30 02/28/25 00:00 02/28/25 00:00 02/28/25 02:00 Temperature Pulse Rate 96 92 Respiratory Rate Blood Pressure Pulse Oximetry Oxygen Delivery Fraction of Inspired Oxygen 30 02/28/25 02:00 02/28/25 02:00 02/28/25 02:15 Temperature Pulse Rate 92 92 95 Respiratory Rate 27 H 27 H Blood Pressure 124/76 Pulse Oximetry 94 92 Oxygen Delivery Mechanical Ventilation Fraction of Inspired Oxygen 30 02/28/25 04:00 02/28/25 04:00 02/28/25 04:00 Temperature 99.2 F Pulse Rate 91 95 Respiratory Rate 17 Blood Pressure 128/77 Pulse Oximetry 94 Oxygen Delivery Fraction of Inspired Oxygen 30 02/28/25 04:00 02/28/25 04:52 02/28/25 06:00 Temperature Pulse Rate 91 93 86 Respiratory Rate 17 Blood Pressure Pulse Oximetry 93 Oxygen Delivery Mechanical Ventilation Fraction of Inspired Oxygen 30 02/28/25 06:00 02/28/25 06:00 02/28/25 06:13 Temperature Pulse Rate 86 86 95 Respiratory Rate 23 H 23 H Blood Pressure 117/63 Pulse Oximetry 96 92 Oxygen Delivery Mechanical Ventilation Fraction of Inspired Oxygen 30 02/28/25 07:26 02/28/25 07:48 02/28/25 08:00 Temperature 98.2 F Pulse Rate 90 86 90 Respiratory Rate 26 H Blood Pressure 146/74 H Pulse Oximetry 100 94 94 Oxygen Delivery Mechanical Ventilation Mechanical Ventilation Fraction of Inspired Oxygen 30 30 02/28/25 08:00 02/28/25 08:00 02/28/25 08:00 Temperature Pulse Rate 90 Respiratory Rate 27 H Blood Pressure Pulse Oximetry Oxygen Delivery Mechanical Ventilation Fraction of Inspired Oxygen 30 02/28/25 08:00 02/28/25 08:11 02/28/25 08:11 Temperature Pulse Rate 89 93 93 Respiratory Rate 33 H 33 H Blood Pressure Pulse Oximetry Oxygen Delivery Fraction of Inspired Oxygen 02/28/25 10:00 02/28/25 10:00 02/28/25 10:00 Temperature 98.9 F Pulse Rate 84 83 83 Respiratory Rate 25 H 26 H Blood Pressure 119/62 Pulse Oximetry 96 Oxygen Delivery Fraction of Inspired Oxygen 02/28/25 11:33 02/28/25 12:00 Temperature 98.4 F Pulse Rate 85 86 Respiratory Rate 29 H Blood Pressure 121/67 Pulse Oximetry 96 97 Oxygen Delivery Mechanical Ventilation Fraction of Inspired Oxygen 30 Intake/Output Intake/Output: Intake & Output 02/25/25 02/26/25 02/27/25 02/28/25 23:59 23:59 23:59 23:59 Intake Total 4570.7 2746.4 1886.2 3130.6 Output Total 2800 4075 2300 1000 Balance 1770.7 -1328.6 -413.8 2130.6 Meds/Results Medications: Active Medications Generic Name Dose Route Start Last Admin Trade Name Freq PRN Reason Stop Dose Admin Acetaminophen 650 mg 02/17/25 20:19 02/27/25 20:09 Acetaminophen 325 Mg Tablet FEED TUBE 650 mg Q4H PRN Administration Mild Pain (1-3) or Fever Alteplase, Recombinant 2 mg 02/21/25 22:45 02/21/25 23:00 Alteplase 2 Mg Vial (Cathflo) IV PUSH 2 mg ONCE PRN Administration Line Occlusion Bisacodyl 10 mg 02/24/25 09:00 02/28/25 08:11 Bisacodyl 10 Mg Suppository RECTAL 10 mg QAM KENNETH Administration Dextrose 12.5 gm 02/17/25 21:35 Dextrose 50% 25 Gm/50 Ml Syringe IV PUSH PRN PRN Hypoglycemia Protocol Folic Acid 1 mg 02/19/25 09:00 02/28/25 08:21 Folic Acid 1 Mg/0.2 Ml Inj IV PUSH 1 mg QAM KENNETH Administration Glucagon 1 mg 02/17/25 21:35 Glucagon For Inj 1 Mg Vial IM PRN PRN Hypoglycemia Protocol Glucose 15 gm 02/17/25 21:35 Glucose Oral Gel 15 Gm Of Glucse In 37.5 Gm Tube PO PRN PRN Hypoglycemia Protocol Heparin Sodium (Porcine) 5,000 units 02/18/25 14:00 02/28/25 05:54 Heparin Sodium 5,000 Units/Ml Vial SUB-Q 5,000 units Q8HR KENNETH Administration Hydralazine HCl 10 mg 02/21/25 19:36 02/22/25 00:00 Hydralazine Hcl 20 Mg/Ml Vial IV PUSH 10 mg Q6H PRN Administration Blood Pressure - High Hyoscyamine 0.125 mg 02/25/25 22:25 02/27/25 20:09 Hyoscyamine Sulfate Soln 0.125 Mg/Ml Oral Syringe PO 0.125 mg Q4H PRN Administration Abdominal Cramping Dextrose 1,000 mls @ 100 mls/hr 02/17/25 21:35 Dextrose 5% 1,000 Ml IVPB PRN PRN Hypoglycemia Protocol Dexmedetomidine HCl 400 mcg in 100 mls @ 6.57 mls/hr 02/22/25 07:40 02/28/25 10:00 Precedex 400 Mcg/100 Ml IV CONT 0.4 mcg/kg/hr .[id number] KENNETH 6.57 mls/hr Protocol Titration 0.4 MCG/KG/HR Insulin Aspart 3 - 6 units 02/18/25 00:00 02/28/25 12:13 Insulin Aspart (*Bkc) 100 Units/Ml SUB-Q Not Given Q4HR [facility] Protocol Insulin Glargine 20 units 02/28/25 09:00 02/28/25 08:09 Insulin Glargine (*Bkc) 100 Units/Ml SUB-Q 20 units QAM KENNETH Administration Ipratropium Delmar 0.5 mg 02/22/25 07:33 02/27/25 14:47 Ipratropium Br 0.02% Inh Soln 0.5 Mg/2.5 Ml Vial INHALATION 0.5 mg Q6HRT PRN Administration Wheezing Levalbuterol HCl 0.63 mg 02/22/25 07:33 02/27/25 14:48 Levalbuterol Neb 1.25 Mg/3 Ml INHALATION 0.63 mg Q6HRT PRN Administration Wheezing Metoclopramide HCl 10 mg 02/19/25 12:00 02/28/25 12:13 Metoclopramide Hcl Inj 10 Mg/2 Ml Vial IV PUSH 10 mg Q6HR KENNETH Administration Miscellaneous Information 1 each 02/28/25 00:01 02/28/25 07:59 Please Renew Dexmedetomidine . Per [employer] Procedure, It Will Discontinue If Not Renewed XX 03/30/25 00:00 Not Given CLARIFY KENNETH Multi-Ingred Cream/Lotion/Oil/Oint 1 applic 02/17/25 21:00 02/28/25 08:11 Mineral Oil/White Petrolatum Ointment EACH EYE Not Given Q12HR KENNETH Multivitamins Therapeutic 1 tablet 02/23/25 10:00 02/28/25 08:08 Multivitamins Therapeutic Tab (*Bk) FEED TUBE 1 tablet QAM KENNETH Administration Pantoprazole Sodium 40 mg 02/18/25 09:00 02/28/25 08:09 Pantoprazole Sodium Iv 40 Mg Vial IV PUSH 40 mg Q12HR KENNETH Administration Polyethylene Glycol 17 gm 02/21/25 09:00 02/28/25 08:08 Polyethylene Glycol 3350 17 Gm Powd.Pack PO 17 gm QAM KENNETH Administration Senna/Docusate Sodium 1 tab 02/17/25 21:00 02/27/25 20:09 Senna/Docusate Sodium Tablet FEED TUBE 1 tab HS KENNETH Administration Sodium Chloride 10 ml 02/18/25 22:00 02/28/25 05:55 Central Line Flush IV PUSH 10 ml Q8HR KENNETH Administration Sodium Chloride 20 ml 02/18/25 16:07 02/20/25 05:33 Central Line Flush IV PUSH 20 ml PRN PRN Administration after blood draws Thiamine HCl 100 mg 02/19/25 09:00 02/28/25 08:09 Thiamine Hcl 200 Mg/2 Ml Vial IV PUSH 100 mg QAM KENNETH Administration Radiology Results: ITS Impressions Head CT 02/17/25 16:55 IMPRESSION: 1. No acute intracranial hemorrhage. No mass effect. 2. Probable chronic ischemic white matter change. Chest/Abdomen/Pelvis CT 02/17/25 17:11 IMPRESSION: 1. Moderate sized groundglass opacities scattered throughout both lungs most prominent in the lower lobes. In addition, there are small to moderate sized patchy consolidations scattered throughout both lungs most prominent in the lower lobes. The findings are concerning for multilobar pneumonia. Other etiologies are possible but are felt to be less likely. Recommend follow-up to resolution. 2.There is a Daniels catheter in the bladder. Mild concentric thickening of the calvo of the bladder. Small amount of nondependent air in the bladder which may be due to recent instrumentation or cystitis. 3. Large amount of stool in the rectum. 4. The stomach is distended and filled with air. 5. Small amount of fat stranding with a few locules of air about the posterior aspect of the mid and distal sacrum. No obvious loculated fluid collection identified. No convincing CT evidence for sacral osteomyelitis at this time. Abdomen Ultrasound 02/19/25 13:00 Impression: Limited study. No acute process Abdomen X-Ray 02/20/25 10:54 IMPRESSION: 1. No acute abdominal abnormality. 2: Bibasilar infiltrates may represent edema or pneumonia. Renal Ultrasound 02/20/25 17:18 IMPRESSION: 1. Normal kidneys without hydronephrosis. 2. Diffuse trabeculated bladder wall thickening suggestive of sequela of chronic outlet obstruction. Chest X-Ray 02/28/25 09:25 IMPRESSION: 1. Lines and tubes in expected positions. 2. Persistent opacity left lower lung zone which could represent atelectasis or pneumonia. Labs Labs: Laboratory Results - last 24 hr 02/27/25 02/27/25 02/27/25 12:36 17:24 19:54 WBC RBC Hgb Hct MCV MCH MCHC RDW Plt Count MPV Puncture Site ABG pH ABG pCO2 ABG pO2 ABG PO2/FiO2 Ratio ABG HCO3 ABG O2 Saturation ABG O2 Content ABG Base Excess A-a Gradient Oxyhemoglobin Carboxyhemoglobin Methemoglobin Reduced Hemoglobin Total Hemoglobin O2 Delivery Device O2 Liters/Min Minute Volume Vent Rate Vent Mode FiO2 Tidal Volume PEEP Peak Inspir Pressure Pressure Support Sodium Potassium Chloride Carbon Dioxide Anion Gap BUN Creatinine Estim Creat Clear Calc Estimated GFR Glucose POC Capillary Glucose 196 H 242 H 225 H Calcium Phosphorus Magnesium Total Bilirubin AST ALT Alkaline Phosphatase Total Protein Albumin 02/28/25 02/28/25 02/28/25 00:08 04:26 04:26 WBC 13.7 H RBC 2.76 L Hgb 7.3 L Hct 24.0 L MCV 87.0 MCH 26.4 MCHC 30.4 L RDW 17.1 H Plt Count 247 MPV 10.0 Puncture Site ABG pH ABG pCO2 ABG pO2 ABG PO2/FiO2 Ratio ABG HCO3 ABG O2 Saturation ABG O2 Content ABG Base Excess A-a Gradient Oxyhemoglobin Carboxyhemoglobin Methemoglobin Reduced Hemoglobin Total Hemoglobin O2 Delivery Device O2 Liters/Min Minute Volume Vent Rate Vent Mode FiO2 Tidal Volume PEEP Peak Inspir Pressure Pressure Support Sodium 142 Potassium 3.4 Chloride 109 H Carbon Dioxide 33 H Anion Gap 0 L BUN 22 H Creatinine 0.30 L Estim Creat Clear Calc 191 Estimated GFR > 60 Glucose 239 H POC Capillary Glucose 258 H Calcium 8.0 L Phosphorus 2.9 Cancelled Magnesium 1.9 Total Bilirubin 0.3 AST 26 ALT 36 Alkaline Phosphatase 148 H Total Protein 5.3 L Albumin 2.3 L 02/28/25 02/28/25 02/28/25 04:45 07:55 12:07 WBC RBC Hgb Hct MCV MCH MCHC RDW Plt Count MPV Puncture Site Right radial ABG pH 7.532 H* ABG pCO2 36.6 ABG pO2 76.6 L ABG PO2/FiO2 Ratio 2.55 ABG HCO3 30.0 H ABG O2 Saturation 96.6 ABG O2 Content 11.2 L ABG Base Excess 6.9 A-a Gradient 94.3 Oxyhemoglobin 94.2 Carboxyhemoglobin 0.9 Methemoglobin 0.3 Reduced Hemoglobin 4.6 Total Hemoglobin 8.4 L O2 Delivery Device Ventilator O2 Liters/Min Not Reportable Minute Volume Not Reportable Vent Rate 12 Vent Mode Cmv FiO2 30 Tidal Volume 350 PEEP 5 Peak Inspir Pressure Not Reportable Pressure Support Not Reportable Sodium Potassium Chloride Carbon Dioxide Anion Gap BUN Creatinine Estim Creat Clear Calc Estimated GFR Glucose POC Capillary Glucose 211 H 178 H Calcium Phosphorus Magnesium Total Bilirubin AST ALT Alkaline Phosphatase Total Protein Albumin
[2025-02-28] MEDS: SENNA/DOCUSATE SODIUM TABLET 1 TAB FEED TUBE (20:33)
[2025-02-28] MEDS: MINERAL OIL/WHITE PETROLATUM OINTMENT 1 APPLIC EACH EYE (20:33)
--- NOTE | 2025-02-28 20:49 | WPDCN ---
Assessment and Plan Assessment and plan (1) Acute respiratory failure: Code(s): J96.00 - Acute respiratory failure, unspecified whether with hypoxia or hypercapnia Status: Acute (2) Acute respiratory distress: Code(s): R06.03 - Acute respiratory distress Status: Acute (3) Pneumonia: Code(s): J18.9 - Pneumonia, unspecified organism Status: Acute Plan Plan operating room for tracheostomy. Please make NPO at midnight. Please hold anticoagulation after midnight. Please consent patient for tracheostomy. Call number listed in the chart discussed risks with the family. Please discuss the risks of tracheocutaneous fistula. . Bleeding. Infection at the surgical site. Need for further procedures. Need for procedures to close a persistent stoma. Surgery planned 03/01/2025 HPI Data of Consult Date/Time: 02/28/25 20:49 Requesting Physician: Remington Peterson MD Primary Care Provider: UNKNOWN,DOCTOR Consult Narrative Reason for consult: Respiratory failure Narrative: Toni Gates is a 64 year old male with respiratory failure and respiratory insufficiency. ENT consult for tracheostomy Review of Systems Review of Systems: All systems reviewed & are unremarkable except as noted in HPI and below PMFSH Past Medical History Medical History (Updated 02/28/25 @ 11:31 by Patricia Del Valle APRN) Elevated alkaline phosphatase measurement History of left heart catheterization Elevated lipids Diabetes Asthma Arthritis Surgical History Surgical History History of lumbosacral spine surgery Family History Family History Mother Family history of primary malignant neoplasm of liver, Onset Age: 69 Social History Social History Smoking status: Former smoker Alcohol intake: never Substance use: never Lack of Transportation: No Lack of Food: Never True Current Housing: I Have Housing Concerned About Future Housing: No Difficulty Paying Gas/Electric Bills: No Difficulty Paying for Meds: No Currently Unemployed: No Education: Grade School Difficulty w/ Childcare or Family Care: No Spiritual care concerns: No Meds Home Medications and Allergies Home Medications ?Medication ?Instructions ?Recorded ?Confirmed ?Type aspirin 81 mg tablet,delayed 81 mg PO DAILY 06/01/19 02/18/25 History release cyclobenzaprine 10 mg tablet 10 mg PO Q8H 06/01/19 02/18/25 History metformin 1,000 mg tablet 1,000 mg PO BID 06/01/19 02/18/25 History insulin glargine 100 unit/mL (3 20 unit subcut HS 01/05/20 02/18/25 History mL) subcutaneous pen (Lantus Solostar U-100 Insulin) acetaminophen 500 mg tablet 1,000 mg PO Q6H PRN pain 02/18/25 02/18/25 History albuterol sulfate 90 mcg/actuation 2 inh inhalation Q6H PRN shortness 02/18/25 02/18/25 History breath activated powder of breath inhaler,sensor (Proair Digihaler) ascorbic acid (vitamin C) 500 mg 500 mg PO DAILY 02/18/25 02/18/25 History tablet docusate sodium 100 mg tablet 100 mg PO BID 02/18/25 02/18/25 History docusate sodium 100 mg tablet 100 mg PO Q12H PRN constipation 02/18/25 02/18/25 History empagliflozin 25 mg tablet 25 mg PO DAILY 02/18/25 02/18/25 History (Jardiance) ergocalciferol (vitamin D2) 50 mcg 50 mcg PO DAILY 02/18/25 02/18/25 History (2,000 unit) tablet ferrous sulfate 325 mg (65 mg 325 mg PO DAILY 02/18/25 02/18/25 History iron) tablet (Xiomy-Time) fluticasone propionate 50 2 spray intranasal DAILY 02/18/25 02/18/25 History mcg/actuation nasal spray,suspension melatonin 3 mg tablet 3 mg PO HS PRN insomnia 02/18/25 02/18/25 History multivitamin with iron-mineral 1 tablet PO DAILY 02/18/25 02/18/25 History nifedipine 30 mg tablet,extended 30 mg PO .qday 02/18/25 02/18/25 History release 24 hr ropinirole 1 mg tablet 1 mg PO DAILY 02/18/25 02/18/25 History Allergies Allergy/AdvReac Type Severity Reaction Status Date / Time codeine Allergy Unknown Unknown Verified 12/16/24 18:40 Vital Signs Vital Signs - 24 hr 02/27/25 22:00 02/27/25 22:00 02/27/25 22:00 Temperature Pulse Rate 93 93 93 Respiratory Rate 28 H 28 H Blood Pressure 117/68 Pulse Oximetry 94 Oxygen Delivery Fraction of Inspired Oxygen 02/27/25 22:56 02/28/25 00:00 02/28/25 00:00 Temperature 37.2 C Pulse Rate 93 96 96 Respiratory Rate 24 H 24 H Blood Pressure 126/73 Pulse Oximetry 93 95 Oxygen Delivery Mechanical Ventilation Fraction of Inspired Oxygen 30 02/28/25 00:00 02/28/25 00:00 02/28/25 02:00 Temperature Pulse Rate 96 92 Respiratory Rate Blood Pressure Pulse Oximetry Oxygen Delivery Fraction of Inspired Oxygen 30 02/28/25 02:00 02/28/25 02:00 02/28/25 02:15 Temperature Pulse Rate 92 92 95 Respiratory Rate 27 H 27 H Blood Pressure 124/76 Pulse Oximetry 94 92 Oxygen Delivery Mechanical Ventilation Fraction of Inspired Oxygen 30 02/28/25 04:00 02/28/25 04:00 02/28/25 04:00 Temperature 37.3 C Pulse Rate 91 95 Respiratory Rate 17 Blood Pressure 128/77 Pulse Oximetry 94 Oxygen Delivery Fraction of Inspired Oxygen 30 02/28/25 04:00 02/28/25 04:52 02/28/25 06:00 Temperature Pulse Rate 91 93 86 Respiratory Rate 17 Blood Pressure Pulse Oximetry 93 Oxygen Delivery Mechanical Ventilation Fraction of Inspired Oxygen 30 02/28/25 06:00 02/28/25 06:00 02/28/25 06:13 Temperature Pulse Rate 86 86 95 Respiratory Rate 23 H 23 H Blood Pressure 117/63 Pulse Oximetry 96 92 Oxygen Delivery Mechanical Ventilation Fraction of Inspired Oxygen 30 02/28/25 07:26 02/28/25 07:48 02/28/25 08:00 Temperature 36.8 C Pulse Rate 90 86 90 Respiratory Rate 26 H Blood Pressure 146/74 H Pulse Oximetry 100 94 94 Oxygen Delivery Mechanical Ventilation Mechanical Ventilation Fraction of Inspired Oxygen 30 30 02/28/25 08:00 02/28/25 08:00 02/28/25 08:00 Temperature Pulse Rate 90 Respiratory Rate 27 H Blood Pressure Pulse Oximetry Oxygen Delivery Mechanical Ventilation Fraction of Inspired Oxygen 30 02/28/25 08:00 02/28/25 08:11 02/28/25 08:11 Temperature Pulse Rate 89 93 93 Respiratory Rate 33 H 33 H Blood Pressure Pulse Oximetry Oxygen Delivery Fraction of Inspired Oxygen 02/28/25 10:00 02/28/25 10:00 02/28/25 10:00 Temperature 37.2 C Pulse Rate 84 83 83 Respiratory Rate 25 H 26 H Blood Pressure 119/62 Pulse Oximetry 96 Oxygen Delivery Fraction of Inspired Oxygen 02/28/25 11:33 02/28/25 12:00 02/28/25 12:00 Temperature 36.9 C Pulse Rate 85 86 86 Respiratory Rate 29 H Blood Pressure 121/67 Pulse Oximetry 96 97 Oxygen Delivery Mechanical Ventilation Fraction of Inspired Oxygen 30 02/28/25 12:00 02/28/25 12:00 02/28/25 12:00 Temperature Pulse Rate 88 Respiratory Rate 29 H Blood Pressure Pulse Oximetry Oxygen Delivery Mechanical Ventilation Fraction of Inspired Oxygen 30 02/28/25 14:00 02/28/25 14:00 02/28/25 14:00 Temperature 36.8 C Pulse Rate 85 85 83 Respiratory Rate 27 H 26 H Blood Pressure 113/70 Pulse Oximetry 97 Oxygen Delivery Fraction of Inspired Oxygen 02/28/25 14:51 02/28/25 16:00 02/28/25 16:00 Temperature 36.9 C Pulse Rate 85 89 89 Respiratory Rate 31 H 31 H Blood Pressure 138/74 Pulse Oximetry 96 96 Oxygen Delivery Mechanical Ventilation Fraction of Inspired Oxygen 30 02/28/25 16:00 02/28/25 16:00 02/28/25 16:00 Temperature Pulse Rate 90 Respiratory Rate Blood Pressure Pulse Oximetry Oxygen Delivery Mechanical Ventilation Fraction of Inspired Oxygen 30 02/28/25 17:07 02/28/25 18:00 02/28/25 18:00 Temperature Pulse Rate 95 90 90 Respiratory Rate 27 H Blood Pressure Pulse Oximetry 96 Oxygen Delivery Mechanical Ventilation Fraction of Inspired Oxygen 30 02/28/25 18:00 02/28/25 19:58 Temperature 36.6 C Pulse Rate 90 86 Respiratory Rate 27 H Blood Pressure 116/66 Pulse Oximetry 96 98 Oxygen Delivery Mechanical Ventilation Fraction of Inspired Oxygen 30 Exam Narrative: palpable landmarks. FiO2 30% pressure is acceptable. Results Labs 02/28/25 04:26 02/28/25 04:26 Labs: Short CBC 02/28/25 Range/Units 04:26 WBC 13.7 H (4.5-10.0) K/mm3 Hgb 7.3 L (14.0-18.0) g/dL Hct 24.0 L (42.0-52.0) % Plt Count 247 (150-375) k/mm3 BMP 02/28/25 04:26 Sodium 142 Potassium 3.4 Chloride 109 H Carbon Dioxide 33 H BUN 22 H Creatinine 0.30 L Glucose 239 H Calcium 8.0 L Liver Function 02/28/25 Range/Units 04:26 Total Bilirubin 0.3 (0.2-1.3) mg/dL AST 26 (17-59) U/L ALT 36 (6-50) U/L Alkaline Phosphatase 148 H (38-126) U/L Albumin 2.3 L (3.5-5.1) g/dL
[2025-03-01] VITALS (28 sets, daily range): BP systolic 90–135; BP diastolic 56–85; PULSE 68–95; RESP 14–30; TEMP 27.2–36.9; O2SAT 92–100
[2025-03-01] MEDS: dexmedeTOMIDine 400 MCG/100 ML 400 MCG/100 ML BAG 6.57 MCG IV CONT (00:10)
[2025-03-01] MEDS: METOCLOPRAMIDE HCL INJ 10 MG/2 ML VIAL IV PUSH ×2 (00:11→05:18)
[2025-03-01 04:35] LABS: Alveolar/Arterial O2 Gradient 87.6 mmHg; Carboxyhemoglobin 0.9 % THb (0-2.0); Fractional Inspired Oxygen 30 %; HCO3 ABG 25.4 mEq/l (22.0-26.0); Methemoglobin ABG 0.3 %THb (0-1.5); Oxygen Content ABG 10.9 %vol (16.0-22.0); Oxygen Saturation ABG 97.0 % (95.0-100.0); PCO2 ABG 35.5 mmHg (35.0-45.0); PO2 ABG 84.6 mmHg (80.0-100.0); PO2 FiO2 Ratio Arterial Blood 2.82 %; Reduced Hemoglobin 4.5 %THb (0-5.0)
[2025-03-01 04:36] LABS: Modified Allen's Test Pass; Site Drawn RIGHT RADIAL
[2025-03-01 04:37] LABS: Arterial Blood Gas Tidal Volume 300 ml; Arterial Blood Gas Ventilator rate 12 /MIN
[2025-03-01 05:17] LABS: Hematocrit 24.3 % (42.0-52.0); Hemoglobin 7.2 g/dL (14.0-18.0); Immature Granulocyte Percent A 0.9 % (0-0.5); Lymphocytes Absolute Auto 0.94 K/mm3 (0.9-3.2); Mean Corpuscular HGB Conc 29.6 g/dl (32-36); Mean Corpuscular Hemoglobin 26.7 pg (26-34); Mean Corpuscular Volume 90.0 fl (80-100); Nucleated Red Blood Cells Absolute Auto 0.000 K/mm3 (0.0-0.012); Nucleated Red Blood Cells Perc 0.0 % (0.0-0.2); Platelet Count Result 247 k/mm3 (150-375); Red Blood Count 2.70 M/mm3 (4.6-6.20); White Blood Count 11.6 K/mm3 (4.5-10.0)
[2025-03-01] MEDS: CENTRAL LINE FLUSH 10 ML IV PUSH ×3 (05:18→20:38)
[2025-03-01 05:56] LABS: Magnesium 2.0 mg/dL (1.6-2.3)
[2025-03-01 06:29] LABS: Alanine Aminotransferase 30 U/L (6-50); Albumin Level 2.3 g/dL (3.5-5.1); Alkaline Phosphatase 133 U/L (38-126); Anion Gap 1 mmol/L (4-12); Aspartate Amino Transferase 24 U/L (17-59); Bilirubin,Total 0.3 mg/dL (0.2-1.3); Blood Urea Nitrogen 19 mg/dL (9-20); Calcium 8.3 mg/dL (8.4-10.2); Carbon Dioxide 27 mmol/L (22-30); Chloride 113 mmol/L (98-107); Estimated CRCL calculation 181 ml/min; Estimated Glomerular Filt Rate > 60; Glucose 176 mg/dL (65-110); Potassium 3.5 mmol/L (3.4-5.0); Sodium 141 mmol/L (137-145); Total Protein 5.5 g/dL (6.3-8.2)
[2025-03-01 06:36] LABS: Anisocytosis 1+; Hypochromasia 1+; Schistocytes None Seen
[2025-03-01] MEDS: THIAMINE HCL 200 MG/2 ML VIAL 100 MG IV PUSH (08:44)
[2025-03-01] MEDS: KCL 40 MEQ/WATER 100 ML 100 ML 25 ML IVPB (08:44)
[2025-03-01] MEDS: FOLIC ACID 1 MG/0.2 ML INJ IV PUSH (08:44)
[2025-03-01] MEDS: PANTOPRAZOLE SODIUM IV 40 MG VIAL IV PUSH ×2 (08:44→20:37)
--- NOTE | 2025-03-01 08:46 | P.PNINT_ITS ---
Progress Note: A&P Assessment and Plan (1) Septic shock: Code(s): A41.9 - Sepsis, unspecified organism; R65.21 - Severe sepsis with septic shock Status: Acute Assessment and Plan: 02/17: Patient presented from a snf with altered mental status, shortness of breath. Initially had Leukocytosis. Patient did receive 2 L IV fluid bolus in the ER, was transferred to the intermediate Unit and immediately upon arrival to the IMU, rapid response was called due to hypoxia, tachypnea, tachycardia. Patient was transferred to of the ICU -likely etiology pneumonia and UTI -lactic acid normalized in patient is now off of vasopressors -adequately fluid-resuscitated in the ICU -02/17: Preliminary blood cultures are negative x2 -02/17: Urine cultures grew superficial organisms -02/18: Sputum culture growing Klebsiella friend, MRSA and Dolores tropicalis 02/17: Nasal MRSA screen was positive Completed full course off cefepime, doxycycline and vancomycin Off IV fluids (2) Acute respiratory failure: Code(s): J96.00 - Acute respiratory failure, unspecified whether with hypoxia or hypercapnia Status: Acute Assessment and Plan: 02/17: Patient was transferred to the ICU from intermediate Unit. He was emergently intubated by ER physician likely cause multifocal pneumonia Patient is on CMV mode of ventilation, peep of 10, 40% FiO2. Decrease PEEP to 8 Continue bronchodilators - Xopenex and Atrovent but change to p.r.n. 02/22 Patient awake and following commands but tachypneic with rate in high 30s. When I placed patient on PSV 01/28 patient's respiratory rate was up to 40s. Patient was started on Precedex infusion for anxiolysis and given Lasix 02/23 5/8 PSV done again today. RSBI borderline. Patient with increased work of breathing. Will increase pressure support and continue as long as patient tolerates. Will give another dose of Lasix today 02/24 PSV weaning trial was again attempted this morning. High RSBI and respiratory rate. Patient needed pressure support of 15/8 for adequate RSBI. Patient was then placed on ASV at 80%. It was continued through the day. Patient appears very weak and debilitated. Weaning is going to be difficult and long. Patient may very well need tracheostomy. Will continue working with him daily 02/26 patient placed on PSV again. His tidal volumes are in 200s. She is debilitated and weak. Patient has history of high cervical myelopathy they could be component of diaphragmatic weakness. Even if he is extubated he will not be able to use BiPAP considering he can not even lift his hands off the bed. I anticipate patient will need tracheostomy. Will continue working through the weekend and revisit this with patient's family. 02/27 will try PSV again today. I will discuss with family with regard to option of tracheostomy and PEG tube placement 02/28 patient was placed on PSV again his tidal volumes are less than 200 mL and rate consistently above 30. Patient was placed on higher pressure support of 10 which provides acceptable RSBI. I will discuss with patient's family regarding proceeding with tracheostomy and PEG tube placement. 03/01: Plan for tracheostomy today. Placed patient on ASV mode, still requiring high pressure support but mostly spontaneous breaths Chest x-ray and ABG reviewed. Decrease tidal volume to 300 Continue daily assessment for SBT, Status post antibiotics ammonia 02/17: CT chest, abdomen and pelvis IMPRESSION: 1. Moderate sized groundglass opacities scattered throughout both lungs most prominent in the lower lobes. In addition, there are small to moderate sized patchy consolidations scattered throughout both lungs most prominent in the lower lobes. The findings are concerning for multilobar pneumonia. Other etiologies are possible but are felt to be less likely. Recommend follow-up to resolution. 2.There is a Daniels catheter in the bladder. Mild concentric thickening of the calvo of the bladder. Small amount of nondependent air in the bladder which may be due to recent instrumentation or cystitis. 3. Large amount of stool in the rectum. 4. The stomach is distended and filled with air. 5. Small amount of fat stranding with a few locules of air about the posterior aspect of the mid and distal sacrum. No obvious loculated fluid collection identified. No convincing CT evidence for sacral osteomyelitis at this time. (3) Multifocal pneumonia: Code(s): J18.8 - Other pneumonia, unspecified organism Status: Acute Assessment and Plan: Multifocal pneumonia Completed antibiotics (4) Acute UTI: Code(s): N39.0 - Urinary tract infection, site not specified Status: Acute Assessment and Plan: UA was positive for UTI, -completed antibiotics (5) Diabetes: Qualifiers: Diabetes mellitus type: other specified (including JODEE) Diabetes mellitus [facility] insulin use: with [facility] use Diabetes mellitus complication status: with skin complications Diabetes mellitus complication detail: with other skin ulcer Qualified Code(s): E13.622 - Other specified diabetes mellitus with other skin ulcer; Z79.4 - nursing home (current) use of insulin Code(s): E11.9 - Type 2 diabetes mellitus without complications Status: Acute Assessment and Plan: Accu-Cheks and sliding scale insulin Increase Lantus, hold Lantus for this morning as patient is NPO for PEG tube and tracheostomy (6) Sacral ulcer: Qualifiers: Non-pressure ulcer stage: unspecified non-pressure ulcer stage Qual ified Code(s): L98.429 - Non-pressure chronic ulcer of back with unspecified severity Code(s): L98.429 - Non-pressure chronic ulcer of back with unspecified severity Status: Acute Assessment and Plan: Patient has a sacral ulcer -appreciate wound care evaluation and recommendations 02/17: CT abdomen and pelvis: Small amount of fat stranding with a few locules of air about the posterior aspect of the mid and distal sacrum. No obvious loculated fluid collection identified. No convincing CT evidence for sacral osteomyelitis at this time. (7) Severe protein-calorie malnutrition: Code(s): E43 - Unspecified severe protein-calorie malnutrition Status: Acute Assessment and Plan: According to the niece patient has lost lot of weight since August 2024, initially she stated he unable to feed himself due to his neuropathy and was not being adequately fed at the snf, after this surgery and when he was able to move his arms he stated he was not eating well because he was not hungry. -patient's BMI is 18.3, given his height, age, gender he does classify into severe protein calorie malnutrition -appreciate dietitian evaluation recommendations -continue tube feeds. Advance to goal today -continue thiamine and folic acid. Contain MVI -discontinue Reglan as patient having adequate bowel movements and tolerating tube feeds which currently on hold for PEG tube placement today (8) Electrolyte imbalance: Code(s): E87.8 - Other disorders of electrolyte and fluid balance, not elsewhere classified Status: Acute Assessment and Plan: Hypernatremia improved. Off D5 water. Continue increased free water flushes Replace low potassium Diamox IV for mixed alkalosis Nephrology following (9) Constipation: Qualifiers: Constipation type: other constipation type Qualified Code(s): K59.09 - Other constipation Code(s): K59.00 - Constipation, unspecified Status: Acute Assessment and Plan: Large amount of stool in the rectal vault as seen on the CT scan of the abdomen and pelvis -patient has not had a bowel movement -02/20: Soapsuds enema was given without much improved -patient was given lactulose enema -continue p.r.n. MiraLax bisacodyl and senna S -patient is having bowel movements now (10) Weakness: Code(s): R53.1 - Weakness Status: Acute Assessment and Plan: Patient had cervical myelopathy and had some ankle surgery with fusion and instrumentation early this year since then patient has been mostly bedbound. Family states the patient has been in the snf in the bed and few times in a wheelchair. He has significant weakness in both arms and legs. They also state that he had poor p.o. intake and had trouble and difficulty with the eating. Plan DVT prophylaxis: Heparin subQ, currently on hold for PEG tube and tracheostomy Stress ulcer prophylaxis: Protonix Nutrition: Tube feeds on hold for PEG tube and tracheostomy Dr Marques spoke to patient's niece at bedside and updated her with patient's current status. He discussed options of tracheostomy and PEG tube placement. She spoke to patient and her other family members and wants to proceed with trach and PEG. Code Status: Full code Critical Care Time Spent: 33 minutes Due to a high probability of clinically significant, life threatening deterioration, the patient required my highest level of preparedness to intervene emergently and I personally spent this critical care time directly and personally managing the patient. This critical care time included obtaining a history; examining the patient; pulse oximetry; ordering and review of studies; arranging urgent treatment with development of a management plan; evaluation of patient's response to treatment; frequent reassessment; and discussions with other providers. It was exclusive of separately billable procedures and treating other patients and teaching time. Please see Assessment and Plan section and the rest of the note for further information on patient assessment and treatment This dictation may have been done utilizing a voice recognition system. Attempts have been made to correct errors. However, there may be uncorrected grammatical, spelling, and recognitions errors present. Subjective Date/time seen: 03/01/25 08:46 Interval history: Reason for consult: Septic shock, acute respiratory failure, pneumonia, UTI, lactic acidosis, altered mental status 64yo male with HLD, DM and Asthma who presents with altered mental status and hypoxia from his snf. Rapid response called once patient arrived to IMU for being hypoxic. Transferred to the ICU and emergently intubated by ER physician 03/01/2025: Patient seen and examined the ICU, remains intubated on CMV mode of ventilation, peep of 5, 30% FiO2. On Precedex infusion, is awake, alert, follows simple commands in all extremities. Afebrile, good urine output in response to Diamox on 02/28. Hemodynamically stable, denies any pain or difficulty breathing by nodding his head Review of Systems Review of Systems: ROS unobtainable: Yes unobtainable due to endotracheal tube, unobtainable due to medical condition and unobtainable due to mental status Exam Narrative: General: intubated and sedated, in no acute distress HEENT:? Pupils equal and reactive, sclera is clear, ETT in place Neck:? Supple Respiratory:? Coarse breath sounds bilaterally Lt > Rt, decreased at bases, no wheezing, adequate air entry Cardiac:? S1-S2 is normal, sinus tachycardia Abdomen:? Scaphoid abdomen, soft, nontender, hypoactive bowel sounds, patient cachectic and malnourished, patient has a sacral decubitus ulcer Extremities:? Bilateral upper and lower extremity puffiness noted decreased pedal pulses Neuro:? Patient is intubated, on Precedex infusion, opens his eyes to name and follows simple commands with all 4 extremities but appears to be very weak Skin:? old healing ulcers on the feet bilaterally Psych:? Unable to assess at this time Objective Data Vital Signs Vital Signs: Vital Signs - 24 hr 02/28/25 10:00 02/28/25 10:00 02/28/25 10:00 Temperature 98.9 F Pulse Rate 84 83 83 Respiratory Rate 25 H 26 H Blood Pressure 119/62 Pulse Oximetry 96 Oxygen Delivery Fraction of Inspired Oxygen 02/28/25 11:33 02/28/25 12:00 02/28/25 12:00 Temperature 98.4 F Pulse Rate 85 86 86 Respiratory Rate 29 H Blood Pressure 121/67 Pulse Oximetry 96 97 Oxygen Delivery Mechanical Ventilation Fraction of Inspired Oxygen 30 02/28/25 12:00 02/28/25 12:00 02/28/25 12:00 Temperature Pulse Rate 88 Respiratory Rate 29 H Blood Pressure Pulse Oximetry Oxygen Delivery Mechanical Ventilation Fraction of Inspired Oxygen 30 02/28/25 14:00 02/28/25 14:00 02/28/25 14:00 Temperature 98.3 F Pulse Rate 85 85 83 Respiratory Rate 27 H 26 H Blood Pressure 113/70 Pulse Oximetry 97 Oxygen Delivery Fraction of Inspired Oxygen 02/28/25 14:51 02/28/25 16:00 02/28/25 16:00 Temperature 98.4 F Pulse Rate 85 89 89 Respiratory Rate 31 H 31 H Blood Pressure 138/74 Pulse Oximetry 96 96 Oxygen Delivery Mechanical Ventilation Fraction of Inspired Oxygen 30 02/28/25 16:00 02/28/25 16:00 02/28/25 16:00 Temperature Pulse Rate 90 Respiratory Rate Blood Pressure Pulse Oximetry Oxygen Delivery Mechanical Ventilation Fraction of Inspired Oxygen 30 02/28/25 17:07 02/28/25 18:00 02/28/25 18:00 Temperature Pulse Rate 95 90 90 Respiratory Rate 27 H Blood Pressure Pulse Oximetry 96 Oxygen Delivery Mechanical Ventilation Fraction of Inspired Oxygen 30 02/28/25 18:00 02/28/25 19:58 02/28/25 20:00 Temperature 97.9 F Pulse Rate 90 86 87 Respiratory Rate 27 H Blood Pressure 116/66 Pulse Oximetry 96 98 Oxygen Delivery Mechanical Ventilation Fraction of Inspired Oxygen 30 02/28/25 20:00 02/28/25 20:00 02/28/25 20:00 Temperature Pulse Rate 84 84 Respiratory Rate 27 H 27 H Blood Pressure Pulse Oximetry 98 Oxygen Delivery Mechanical Ventilation Fraction of Inspired Oxygen 30 30 02/28/25 20:00 02/28/25 22:00 02/28/25 22:00 Temperature 97.9 F Pulse Rate 84 85 85 Respiratory Rate 27 H 17 Blood Pressure 127/74 120/53 L Pulse Oximetry 98 95 Oxygen Delivery Fraction of Inspired Oxygen 02/28/25 22:00 02/28/25 22:14 03/01/25 00:00 Temperature Pulse Rate 85 85 87 Respiratory Rate 17 30 H Blood Pressure Pulse Oximetry 96 97 Oxygen Delivery Mechanical Ventilation Mechanical Ventilation Fraction of Inspired Oxygen 30 30 03/01/25 00:00 03/01/25 00:00 03/01/25 00:00 Temperature 98.0 F Pulse Rate 87 87 Respiratory Rate 30 H 30 H Blood Pressure 123/69 Pulse Oximetry 97 Oxygen Delivery Fraction of Inspired Oxygen 30 03/01/25 00:00 03/01/25 00:10 03/01/25 00:10 Temperature Pulse Rate 89 87 87 Respiratory Rate 30 H 30 H Blood Pressure Pulse Oximetry Oxygen Delivery Fraction of Inspired Oxygen 03/01/25 01:51 03/01/25 02:00 03/01/25 02:00 Temperature Pulse Rate 82 80 80 Respiratory Rate 25 H Blood Pressure 105/59 L Pulse Oximetry 97 98 Oxygen Delivery Mechanical Ventilation Fraction of Inspired Oxygen 30 03/01/25 02:00 03/01/25 04:00 03/01/25 04:00 Temperature Pulse Rate 80 80 77 Respiratory Rate 25 H 16 Blood Pressure Pulse Oximetry 95 Oxygen Delivery Mechanical Ventilation Fraction of Inspired Oxygen 30 03/01/25 04:00 03/01/25 04:00 03/01/25 04:00 Temperature 98.4 F Pulse Rate 82 82 Respiratory Rate 18 18 Blood Pressure 102/67 Pulse Oximetry 96 Oxygen Delivery Fraction of Inspired Oxygen 30 03/01/25 04:39 03/01/25 06:00 03/01/25 06:00 Temperature Pulse Rate 73 76 76 Respiratory Rate 22 H Blood Pressure 104/67 Pulse Oximetry 96 97 Oxygen Delivery Mechanical Ventilation Fraction of Inspired Oxygen 30 03/01/25 06:00 03/01/25 07:56 03/01/25 08:31 Temperature Pulse Rate 76 73 71 Respiratory Rate 22 H Blood Pressure Pulse Oximetry 97 96 Oxygen Delivery Mechanical Ventilation Mechanical Ventilation Fraction of Inspired Oxygen 30 30 Intake/Output Intake/Output: Intake & Output 02/26/25 02/27/25 02/28/25 03/01/25 23:59 23:59 23:59 23:59 Intake Total 2746.4 1886.2 4246.2 793.8 Output Total 4075 2300 2350 1050 Balance -1328.6 -413.8 1896.2 -256.2 Meds/Results Medications: Active Medications Generic Name Dose Route Start Last Admin Trade Name Freq PRN Reason Stop Dose Admin Acetaminophen 650 mg 02/17/25 20:19 02/27/25 20:09 Acetaminophen 325 Mg Tablet FEED TUBE 650 mg Q4H PRN Administration Mild Pain (1-3) or Fever Alteplase, Recombinant 2 mg 02/21/25 22:45 02/21/25 23:00 Alteplase 2 Mg Vial (Cathflo) IV PUSH 2 mg ONCE PRN Administration Line Occlusion Bisacodyl 10 mg 02/24/25 09:00 03/01/25 08:38 Bisacodyl 10 Mg Suppository RECTAL Not Given QAM KENNETH Dextrose 12.5 gm 02/17/25 21:35 Dextrose 50% 25 Gm/50 Ml Syringe IV PUSH PRN PRN Hypoglycemia Protocol Folic Acid 1 mg 02/19/25 09:00 02/28/25 08:21 Folic Acid 1 Mg/0.2 Ml Inj IV PUSH 1 mg QAM KENNETH Administration Glucagon 1 mg 02/17/25 21:35 Glucagon For Inj 1 Mg Vial IM PRN PRN Hypoglycemia Protocol Glucose 15 gm 02/17/25 21:35 Glucose Oral Gel 15 Gm Of Glucse In 37.5 Gm Tube PO PRN PRN Hypoglycemia Protocol Heparin Sodium (Porcine) 5,000 units 02/18/25 14:00 03/01/25 03:00 Heparin Sodium 5,000 Units/Ml Vial SUB-Q Not Given On Hold: 03/01/25 07:34 Q8HR [facility] Hydralazine HCl 10 mg 02/21/25 19:36 02/22/25 00:00 Hydralazine Hcl 20 Mg/Ml Vial IV PUSH 10 mg Q6H PRN Administration Blood Pressure - High Hyoscyamine 0.125 mg 02/25/25 22:25 02/27/25 20:09 Hyoscyamine Sulfate Soln 0.125 Mg/Ml Oral Syringe PO 0.125 mg Q4H PRN Administration Abdominal Cramping Dextrose 1,000 mls @ 100 mls/hr 02/17/25 21:35 Dextrose 5% 1,000 Ml IVPB PRN PRN Hypoglycemia Protocol Dexmedetomidine HCl 400 mcg in 100 mls @ 6.57 mls/hr 02/22/25 07:40 03/01/25 06:00 Precedex 400 Mcg/100 Ml IV CONT 0.4 mcg/kg/hr .[id number] KENNETH 6.57 mls/hr Protocol Titration 0.4 MCG/KG/HR Potassium Chloride 100 mls @ 25 mls/hr 03/01/25 07:32 Kcl 40 Meq/Water 100 Ml IVPB 03/01/25 11:31 ONCE ONE Insulin Aspart 3 - 6 units 02/18/25 00:00 03/01/25 08:39 Insulin Aspart (*Bkc) 100 Units/Ml SUB-Q Not Given Q4HR [facility] Protocol Insulin Glargine 20 units 02/28/25 09:00 02/28/25 08:09 Insulin Glargine (*Bkc) 100 Units/Ml SUB-Q 20 units On Hold: 03/01/25 07:33 QAM KENNETH Administration Ipratropium [place] 0.5 mg 02/22/25 07:33 02/27/25 14:47 Ipratropium Br 0.02% Inh Soln 0.5 Mg/2.5 Ml Vial INHALATION 0.5 mg Q6HRT PRN Administration Wheezing Levalbuterol HCl 0.63 mg 02/22/25 07:33 02/27/25 14:48 Levalbuterol Neb 1.25 Mg/3 Ml INHALATION 0.63 mg Q6HRT PRN Administration Wheezing Multi-Ingred Cream/Lotion/Oil/Oint 1 applic 02/17/25 21:00 03/01/25 08:40 Mineral Oil/White Petrolatum Ointment EACH EYE Not Given Q12HR KENNETH Multivitamins Therapeutic 1 tablet 02/23/25 10:00 03/01/25 08:40 Multivitamins Therapeutic Tab (*Bkc) FEED TUBE Not Given QAM KENNETH Pantoprazole Sodium 40 mg 02/18/25 09:00 02/28/25 20:33 Pantoprazole Sodium Iv 40 Mg Vial IV PUSH 40 mg Q12HR KENNETH Administration Polyethylene Glycol 17 gm 03/01/25 07:34 Polyethylene Glycol 3350 17 Gm Powd.Pack PO QAM PRN Constipation Senna/Docusate Sodium 1 tab 02/17/25 21:00 02/28/25 20:33 Senna/Docusate Sodium Tablet FEED TUBE 1 tab HS KENNETH Administration Sodium Chloride 10 ml 02/18/25 22:00 03/01/25 05:18 Central Line Flush IV PUSH 10 ml Q8HR KENNETH Administration Sodium Chloride 20 ml 02/18/25 16:07 02/20/25 05:33 Central Line Flush IV PUSH 20 ml PRN PRN Administration after blood draws Thiamine HCl 100 mg 02/19/25 09:00 02/28/25 08:09 Thiamine Hcl 200 Mg/2 Ml Vial IV PUSH 100 mg QAM KENNETH Administration Radiology Results: ITS Impressions Head CT 02/17/25 16:55 IMPRESSION: 1. No acute intracranial hemorrhage. No mass effect. 2. Probable chronic ischemic white matter change. Chest/Abdomen/Pelvis CT 02/17/25 17:11 IMPRESSION: 1. Moderate sized groundglass opacities scattered throughout both lungs most prominent in the lower lobes. In addition, there are small to moderate sized patchy consolidations scattered throughout both lungs most prominent in the lower lobes. The findings are concerning for multilobar pneumonia. Other etiologies are possible but are felt to be less likely. Recommend follow-up to resolution. 2.There is a Daniels catheter in the bladder. Mild concentric thickening of the calvo of the bladder. Small amount of nondependent air in the bladder which may be due to recent instrumentation or cystitis. 3. Large amount of stool in the rectum. 4. The stomach is distended and filled with air. 5. Small amount of fat stranding with a few locules of air about the posterior aspect of the mid and distal sacrum. No obvious loculated fluid collection identified. No convincing CT evidence for sacral osteomyelitis at this time. Abdomen Ultrasound 02/19/25 13:00 Impression: Limited study. No acute process Abdomen X-Ray 02/20/25 10:54 IMPRESSION: 1. No acute abdominal abnormality. 2: Bibasilar infiltrates may represent edema or pneumonia. Renal Ultrasound 02/20/25 17:18 IMPRESSION: 1. Normal kidneys without hydronephrosis. 2. Diffuse trabeculated bladder wall thickening suggestive of sequela of chronic outlet obstruction. Chest X-Ray 02/28/25 09:25 IMPRESSION: 1. Lines and tubes in expected positions. 2. Persistent opacity left lower lung zone which could represent atelectasis or pneumonia. Labs Labs: Laboratory Results - last 24 hr 02/28/25 02/28/25 02/28/25 12:07 16:54 20:32 WBC RBC Hgb Hct MCV MCH MCHC RDW Plt Count MPV Immature Gran % (Auto) Neut % (Auto) Lymph % (Auto) [place] % (Auto) Eos % (Auto) Baso % (Auto) Lymph # (Auto) [place] # (Auto) Eos # (Auto) Baso # (Auto) Abs Immat Gran (auto) Absolute Neuts (auto) Absolute Nucleated RBC Band Neutrophils % Nucleated RBC % Platelet Estimate Hypochromasia Anisocytosis Schistocytes Puncture Site ABG pH ABG pCO2 ABG pO2 ABG PO2/FiO2 Ratio ABG HCO3 ABG O2 Saturation ABG O2 Content ABG Base Excess A-a Gradient Oxyhemoglobin Carboxyhemoglobin Methemoglobin Reduced Hemoglobin Total Hemoglobin O2 Delivery Device O2 Liters/Min Minute Volume Vent Rate Vent Mode FiO2 Tidal Volume PEEP Peak Inspir Pressure Pressure Support Sodium Potassium Chloride Carbon Dioxide Anion Gap BUN Creatinine Estim Creat Clear Calc Estimated GFR Glucose POC Capillary Glucose 178 H 161 H 176 H Calcium Phosphorus Magnesium Total Bilirubin AST ALT Alkaline Phosphatase Total Protein Albumin 03/01/25 03/01/25 03/01/25 01:36 04:25 05:11 WBC 11.6 H RBC 2.70 L Hgb 7.2 L Hct 24.3 L MCV 90.0 MCH 26.7 MCHC 29.6 L RDW 17.2 H Plt Count 247 MPV 10.2 Immature Gran % (Auto) 0.9 H Neut % (Auto) 84.2 H Lymph % (Auto) 8.1 L [place] % (Auto) 5.8 Eos % (Auto) 0.7 Baso % (Auto) 0.3 Lymph # (Auto) 0.94 [place] # (Auto) 0.7 H Eos # (Auto) 0.1 Baso # (Auto) 0.0 Abs Immat Gran (auto) 0.11 H Absolute Neuts (auto) 9.8 H Absolute Nucleated RBC 0.000 Band Neutrophils % Not Reportable Nucleated RBC % 0.0 Platelet Estimate Adequate Hypochromasia 1+ Anisocytosis 1+ Schistocytes None seen Puncture Site Right radial ABG pH 7.473 H ABG pCO2 35.5 ABG pO2 84.6 ABG PO2/FiO2 Ratio 2.82 ABG HCO3 25.4 ABG O2 Saturation 97.0 ABG O2 Content 10.9 L ABG Base Excess 1.8 A-a Gradient 87.6 Oxyhemoglobin 94.3 Carboxyhemoglobin 0.9 Methemoglobin 0.3 Reduced Hemoglobin 4.5 Total Hemoglobin 8.1 L O2 Delivery Device Ventilator O2 Liters/Min Not Reportable Minute Volume Not Reportable Vent Rate 12 Vent Mode Cmv FiO2 30 Tidal Volume 300 PEEP 5 Peak Inspir Pressure Not Reportable Pressure Support Not Reportable Sodium 141 Potassium 3.5 Chloride 113 H Carbon Dioxide 27 Anion Gap 1 L BUN 19 Creatinine 0.32 L Estim Creat Clear Calc 181 Estimated GFR > 60 Glucose 176 H POC Capillary Glucose 199 H Calcium 8.3 L Phosphorus 2.8 Magnesium 2.0 Total Bilirubin 0.3 AST 24 ALT 30 Alkaline Phosphatase 133 H Total Protein 5.5 L Albumin 2.3 L 03/01/25 06:25 WBC RBC Hgb Hct MCV MCH MCHC RDW Plt Count MPV Immature Gran % (Auto) Neut % (Auto) Lymph % (Auto) [place] % (Auto) Eos % (Auto) Baso % (Auto) Lymph # (Auto) [place] # (Auto) Eos # (Auto) Baso # (Auto) Abs Immat Gran (auto) Absolute Neuts (auto) Absolute Nucleated RBC Band Neutrophils % Nucleated RBC % Platelet Estimate Hypochromasia Anisocytosis Schistocytes Puncture Site ABG pH ABG pCO2 ABG pO2 ABG PO2/FiO2 Ratio ABG HCO3 ABG O2 Saturation ABG O2 Content ABG Base Excess A-a Gradient Oxyhemoglobin Carboxyhemoglobin Methemoglobin Reduced Hemoglobin Total Hemoglobin O2 Delivery Device O2 Liters/Min Minute Volume Vent Rate Vent Mode FiO2 Tidal Volume PEEP Peak Inspir Pressure Pressure Support Sodium Potassium Chloride Carbon Dioxide Anion Gap BUN Creatinine Estim Creat Clear Calc Estimated GFR Glucose POC Capillary Glucose 163 H Calcium Phosphorus Magnesium Total Bilirubin AST ALT Alkaline Phosphatase Total Protein Albumin Quality VTE Prophylaxis VTE prophylaxis: pharmacologic ordered
--- NOTE | 2025-03-01 10:10 | WPDANESEPPF ---
Anes - Initial Pre Proc Eval Procedure: Operation Date: 03/01/25 10:30 Proposed Procedures p Tracheostomy - Shawn Menendez MD Date/Time: 03/01/25 10:10 Surgeon: Remington Peterson MD Pre Op Diagnosis: Multifocal Pneumonia Patient Data Age: 64 Gender: M Height: 1.75 m Weight: 72.4 kg Last Vital Signs Temp 36.9 C 03/01/25 04:00 Pulse 68 03/01/25 08:47 Resp 15 03/01/25 08:47 BP 104/67 03/01/25 06:00 Pulse Ox 96 03/01/25 08:31 O2 Del Method Mechanical Ventilation 03/01/25 08:31 O2 Flow Rate 6 02/17/25 19:05 FiO2 30 03/01/25 08:31 Allergies Allergy/AdvReac Type Severity Reaction Status Date / Time codeine Allergy Unknown Unknown Verified 12/16/24 18:40 Home Medications ?Medication ?Instructions ?Recorded ?Confirmed ?Type aspirin 81 mg tablet,delayed 81 mg PO DAILY 06/01/19 02/18/25 History release cyclobenzaprine 10 mg tablet 10 mg PO Q8H 06/01/19 02/18/25 History metformin 1,000 mg tablet 1,000 mg PO BID 06/01/19 02/18/25 History insulin glargine 100 unit/mL (3 20 unit subcut HS 01/05/20 02/18/25 History mL) subcutaneous pen (Lantus Solostar U-100 Insulin) acetaminophen 500 mg tablet 1,000 mg PO Q6H PRN pain 02/18/25 02/18/25 History albuterol sulfate 90 mcg/actuation 2 inh inhalation Q6H PRN shortness 02/18/25 02/18/25 History breath activated powder of breath inhaler,sensor (Proair Digihaler) ascorbic acid (vitamin C) 500 mg 500 mg PO DAILY 02/18/25 02/18/25 History tablet docusate sodium 100 mg tablet 100 mg PO BID 02/18/25 02/18/25 History docusate sodium 100 mg tablet 100 mg PO Q12H PRN constipation 02/18/25 02/18/25 History empagliflozin 25 mg tablet 25 mg PO DAILY 02/18/25 02/18/25 History (Jardiance) ergocalciferol (vitamin D2) 50 mcg 50 mcg PO DAILY 02/18/25 02/18/25 History (2,000 unit) tablet ferrous sulfate 325 mg (65 mg 325 mg PO DAILY 02/18/25 02/18/25 History iron) tablet (Xiomy-Time) fluticasone propionate 50 2 spray intranasal DAILY 02/18/25 02/18/25 History mcg/actuation nasal spray,suspension melatonin 3 mg tablet 3 mg PO HS PRN insomnia 02/18/25 02/18/25 History multivitamin with iron-mineral 1 tablet PO DAILY 02/18/25 02/18/25 History nifedipine 30 mg tablet,extended 30 mg PO .qday 02/18/25 02/18/25 History release 24 hr ropinirole 1 mg tablet 1 mg PO DAILY 02/18/25 02/18/25 History Laboratory Tests 02/28/25 02/28/25 02/28/25 12:07 16:54 20:32 WBC RBC Hgb Hct MCV MCH MCHC RDW Plt Count MPV Immature Gran % (Auto) Neut % (Auto) Lymph % (Auto) [place] % (Auto) Eos % (Auto) Baso % (Auto) Lymph # (Auto) [place] # (Auto) Eos # (Auto) Baso # (Auto) Abs Immat Gran (auto) Absolute Neuts (auto) Absolute Nucleated RBC Band Neutrophils % Nucleated RBC % Platelet Estimate Hypochromasia Anisocytosis Schistocytes Puncture Site ABG pH ABG pCO2 ABG pO2 ABG PO2/FiO2 Ratio ABG HCO3 ABG O2 Saturation ABG O2 Content ABG Base Excess A-a Gradient Oxyhemoglobin Carboxyhemoglobin Methemoglobin Reduced Hemoglobin Total Hemoglobin O2 Delivery Device O2 Liters/Min Minute Volume Vent Rate Vent Mode FiO2 Tidal Volume PEEP Peak Inspir Pressure Pressure Support Sodium Potassium Chloride Carbon Dioxide Anion Gap BUN Creatinine Estim Creat Clear Calc Estimated GFR Glucose POC Capillary Glucose 178 H mg/dl 161 H mg/dl 176 H mg/dl (65-105) (65-105) (65-105) Calcium Phosphorus Magnesium Total Bilirubin AST ALT Alkaline Phosphatase Total Protein Albumin 03/01/25 03/01/25 03/01/25 01:36 04:25 05:11 WBC 11.6 H K/mm3 (4.5-10.0) RBC 2.70 L M/mm3 (4.6-6.20) Hgb 7.2 L g/dL (14.0-18.0) Hct 24.3 L % (42.0-52.0) MCV 90.0 fl (80-100) MCH 26.7 pg (26-34) MCHC 29.6 L g/dl (32-36) RDW 17.2 H % (11.5-14.5) Plt Count 247 k/mm3 (150-375) MPV 10.2 fl (7.4-10.4) Immature Gran % (Auto) 0.9 H % (0-0.5) Neut % (Auto) 84.2 H % (45.5-73.1) Lymph % (Auto) 8.1 L % (18.3-44.2) [place] % (Auto) 5.8 % (2.6-8.5) Eos % (Auto) 0.7 % (0-4.4) Baso % (Auto) 0.3 % (0.2-1.2) Lymph # (Auto) 0.94 K/mm3 (0.9-3.2) [place] # (Auto) 0.7 H K/mm3 (0.1-0.6) Eos # (Auto) 0.1 K/mm3 (0-0.3) Baso # (Auto) 0.0 K/mm3 (0.0-0.1) Abs Immat Gran (auto) 0.11 H K/mm3 (0.00-0.031) Absolute Neuts (auto) 9.8 H K/mm3 (1.3-6.7) Absolute Nucleated RBC 0.000 K/mm3 (0.0-0.012) Band Neutrophils % Not Reportable Nucleated RBC % 0.0 % (0.0-0.2) Platelet Estimate Adequate (Adequate) Hypochromasia 1+ Anisocytosis 1+ Schistocytes None seen Puncture Site Right radial ABG pH 7.473 H (7.350-7.450) ABG pCO2 35.5 mmHg (35.0-45.0) ABG pO2 84.6 mmHg (80.0-100.0) ABG PO2/FiO2 Ratio 2.82 % ABG HCO3 25.4 mEq/l (22.0-26.0) ABG O2 Saturation 97.0 % (95.0-100.0) ABG O2 Content 10.9 L %vol (16.0-22.0) ABG Base Excess 1.8 mEq/l (+/-2.0) A-a Gradient 87.6 mmHg Oxyhemoglobin 94.3 % THb (90.0-100.0) Carboxyhemoglobin 0.9 % THb (0-2.0) Methemoglobin 0.3 %THb (0-1.5) Reduced Hemoglobin 4.5 %THb (0-5.0) Total Hemoglobin 8.1 L g/dL (12.0-18.0) O2 Delivery Device Ventilator O2 Liters/Min Not Reportable Minute Volume Not Reportable Vent Rate 12 /MIN Vent Mode Cmv FiO2 30 % Tidal Volume 300 ml PEEP 5 cmH2O Peak Inspir Pressure Not Reportable Pressure Support Not Reportable Sodium 141 mmol/L (137-145) Potassium 3.5 mmol/L (3.4-5.0) Chloride 113 H mmol/L (98-107) Carbon Dioxide 27 mmol/L (22-30) Anion Gap 1 L mmol/L (4-12) BUN 19 mg/dL (9-20) Creatinine 0.32 L mg/dL (0.7-1.3) Estim Creat Clear Calc 181 ml/min Estimated GFR > 60 (59 - ) Glucose 176 H mg/dL (65-110) POC Capillary Glucose 199 H mg/dl (65-105) Calcium 8.3 L mg/dL (8.4-10.2) Phosphorus 2.8 mg/dL (2.5-4.5) Magnesium 2.0 mg/dL (1.6-2.3) Total Bilirubin 0.3 mg/dL (0.2-1.3) AST 24 U/L (17-59) ALT 30 U/L (6-50) Alkaline Phosphatase 133 H U/L (38-126) Total Protein 5.5 L g/dL (6.3-8.2) Albumin 2.3 L g/dL (3.5-5.1) 03/01/25 03/01/25 06:25 09:19 WBC RBC Hgb Hct MCV MCH MCHC RDW Plt Count MPV Immature Gran % (Auto) Neut % (Auto) Lymph % (Auto) [place] % (Auto) Eos % (Auto) Baso % (Auto) Lymph # (Auto) [place] # (Auto) Eos # (Auto) Baso # (Auto) Abs Immat Gran (auto) Absolute Neuts (auto) Absolute Nucleated RBC Band Neutrophils % Nucleated RBC % Platelet Estimate Hypochromasia Anisocytosis Schistocytes Puncture Site ABG pH ABG pCO2 ABG pO2 ABG PO2/FiO2 Ratio ABG HCO3 ABG O2 Saturation ABG O2 Content ABG Base Excess A-a Gradient Oxyhemoglobin Carboxyhemoglobin Methemoglobin Reduced Hemoglobin Total Hemoglobin O2 Delivery Device O2 Liters/Min Minute Volume Vent Rate Vent Mode FiO2 Tidal Volume PEEP Peak Inspir Pressure Pressure Support Sodium Potassium Chloride Carbon Dioxide Anion Gap BUN Creatinine Estim Creat Clear Calc Estimated GFR Glucose POC Capillary Glucose 163 H mg/dl 144 H mg/dl (65-105) (65-105) Calcium Phosphorus Magnesium Total Bilirubin AST ALT Alkaline Phosphatase Total Protein Albumin Patient hx anesthesia problems: none Family hx anesthesia problems: none Results Review: All pre-operative results and documents have been reviewed as part of the pre-operative evaluation. [facility] Past Medical History Medical History (Updated 02/28/25 @ 11:31 by Patricia Del Valle APRN) Elevated alkaline phosphatase measurement History of left heart catheterization Elevated lipids Diabetes Asthma Arthritis Surgical History Surgical History History of lumbosacral spine surgery Family History Family History Mother Family history of primary malignant neoplasm of liver, Onset Age: 69 Social History Social History Smoking status: Former smoker Alcohol intake: never Substance use: never Lack of Transportation: No Lack of Food: Never True Current Housing: I Have Housing Concerned About Future Housing: No Difficulty Paying Gas/Electric Bills: No Difficulty Paying for Meds: No Currently Unemployed: No Education: Grade School Difficulty w/ Childcare or Family Care: No Spiritual care concerns: No Anes - Eval Final PreProcedure Day of Procedure 03/01/25 10:10 Patient weight: normal Heart: regular rate and rhythm Lungs: clear to auscultation and decreased breath sounds Airway: Mallampati scale ((intubated)) Neurological: alert and oriented Last oral intake: >/= 8 hours ASA classification: IV Emergent: no Anesthetic plan: proceed Anesthesia type and monitoring: general ETT and standard monitoring Results Review: All pre-operative results and documents have been reviewed as part of the pre-operative evaluation. Informed Consent: The patient's anesthetic plan and its attendant risks and benefits were discussed with the patient/family/POA. Questions were solicited and answers provided to the satisfaction of the patient/family/POA.
--- NOTE | 2025-03-01 10:46 | WPDHPUPDATE1 ---
History and Physical Update Update Date/Time: 03/01/25 10:46 History and Physical has been reviewed, including an updated exam of the patient. There are NO changes in the patient's condition. Risks, benefits, and alternatives have been discussed and questions answered. Patient agrees to proceed with procedure.
[2025-03-01] MEDS: LIDO 1%/EPINEPHRINE 1:100,000 20 ML VIAL 10 ML INFILTRATE (11:09)
--- NOTE | 2025-03-01 11:10 | PC.NURSE ---
To OR per patient bed, Central Line for IV. Report given to MICHAEL Reaves and PORFIRIO Higgins hunting sales leader
--- NOTE | 2025-03-01 11:15 | PCRCNOTE ---
Pt was taken off of vent at 1100 and bagged to OR for trach placement
[2025-03-01] MEDS: ceFAZolin 1 GM in SODIUM CHLORIDE 0.9% IV 50 ML 100 ML IVPB (11:30)
--- NOTE | 2025-03-01 11:34 | PCNFU ---
Nutrition Follow-Up Complete: Severe Protein Calorie Malnutrition as related to inadequate protein-energy intake with increased protein-energy needs in setting of chronic disease as evidenced by minimal oral intake for > 1-2 months; severe muscle wasting (temporalis/clavicile) and severe subcutaneous fat loss (orbital fat pads). Goal:Meet estimated nutritional needs Patient will continue current goal. Pt current nutrition is NPO. Nutrition recommendation: Vital AF 1.2 goal rate at 70 ml/hr. Last recorded weight is 72.4 kg, up from 54 kg on admit. Bowel Motility: Last reported BM 03/01 Labs Reviewed: Glu 176, Cr 0.32, Alb 2.3 Meds Noted: MVI, Thiamine, Folic Acid, Reglan, Senokot, Miralax, Precedex. Skin:Stage III-sacrum Additional Notes: Patient is currently NPO for Trach/PEG today. Recommend Vital AF 1.2 when restarting tube feedings. Goal rate being 70 ml/hr. Also recommending Jason BID for wound healing providing an additional 160 kcal, 5 gm protein, 14 gm glutamine and 14 gm arginine. Will monitor weight, labs, skin, diet orders, meds every Friday and Friday.
--- NOTE | 2025-03-01 12:12 | PC.NURSE ---
Returned from OR per patient bed. Report received from MICHAEL Reaves and PORFIRIO Higgins
--- NOTE | 2025-03-01 12:20 | W.PM.PROC2 ---
Procedure Note - Detailed Date of Procedure 03/01/25 Pre-op Diagnosis Multifocal Pneumonia, respiratory failure Post-op Diagnosis Same Procedure Performed Tracheostomy with 6 Shiley cuffed Surgeon Shawn Menendez MD Anesthesia General Indications See above Findings Difficulty inserting an 8 Shiley. Really osteotomy cut thick cartilage. Almost like it was bone. Difficulty performing actually making actual tracheotomy minimal blood loss no complications. Description of Procedure Patient identified consent verified in the ICU.. Patient brought to the operating room. Time-out performed. General anesthesia was deepened is the patient was already intubated. Patient prepped draped positioned 2nd time-out performed. Total of 0.5 cc 1% lidocaine 1 100,000 parts epinephrine injected deep to pre drawn surgical incision over the patient's cricoid. Fifteen blade utilized to cut through the skin as well as subcutaneous fat. Bovie dissection continued through the platysma. Great care was taken to not injure the anterior jugular veins. Anterior jugular veins were split vertically strap muscle dissection continued down to the cricoid cartilage. The cricoid cartilage in 1 through 2 tracheal ring sorry 1st 3 tracheal rings were skeletonized. Thyroid isthmus cauterize through on coag the entire procedures done a coag setting of 10. Cricoid hook was placed elevating the larynx and proximal trachea. At this time anesthesia expertly lowered there balloon and a tracheotomy was made between tracheal rings 1 and 2 S2 and 3 was quite low tracheal tracheotomy was dilated with tracheal dilator. An attempt was made to insert an 8 which did not pass a 6 Shiley easily passed. End-tidal CO2 was confirmed. Cricoid removed. [place] retractors removed. For quarter trach plate sutures were placed there 3-0 silk. Trach ties placed as well very tightly. Patient tolerated the procedure well minimal blood loss about 1 cc. Care the patient given back to Anesthesiology. Patient taken back to ICU. Estimated Blood Loss 1 Urine Output 1,350 Drains No Packing No Pathology None sent Complications No immediate complications Condition Stable Disposition PACU [facility] Billing Surgery - Charge Forward: Surgery Billing
--- NOTE | 2025-03-01 14:38 | WPDGIPROGNO ---
Progress Note: A&P Assessment and Plan (1) Severe protein-calorie malnutrition: Code(s): E43 - Unspecified severe protein-calorie malnutrition Status: Acute Assessment and Plan: See EGD/ peg placement report. Procedure performed with no complications. The tube can be used from now on for medication and nutrition. Will sign off for now but please let us know if there is any other issue relating to a specialty. Thank you. Subjective Date/time seen: 03/01/25 14:38 Objective Data Vital Signs Vital Signs: Vital Signs - 24 hr 02/28/25 14:51 02/28/25 16:00 02/28/25 16:00 Temperature 98.4 F Pulse Rate 85 89 89 Respiratory Rate 31 H 31 H Blood Pressure 138/74 Pulse Oximetry 96 96 Oxygen Delivery Mechanical Ventilation Fraction of Inspired Oxygen 30 02/28/25 16:00 02/28/25 16:00 02/28/25 16:00 Temperature Pulse Rate 90 Respiratory Rate Blood Pressure Pulse Oximetry Oxygen Delivery Mechanical Ventilation Fraction of Inspired Oxygen 30 02/28/25 17:07 02/28/25 18:00 02/28/25 18:00 Temperature Pulse Rate 95 90 90 Respiratory Rate 27 H Blood Pressure Pulse Oximetry 96 Oxygen Delivery Mechanical Ventilation Fraction of Inspired Oxygen 30 02/28/25 18:00 02/28/25 19:58 02/28/25 20:00 Temperature 97.9 F Pulse Rate 90 86 87 Respiratory Rate 27 H Blood Pressure 116/66 Pulse Oximetry 96 98 Oxygen Delivery Mechanical Ventilation Fraction of Inspired Oxygen 30 02/28/25 20:00 02/28/25 20:00 02/28/25 20:00 Temperature Pulse Rate 84 84 Respiratory Rate 27 H 27 H Blood Pressure Pulse Oximetry 98 Oxygen Delivery Mechanical Ventilation Fraction of Inspired Oxygen 30 30 02/28/25 20:00 02/28/25 22:00 02/28/25 22:00 Temperature 97.9 F Pulse Rate 84 85 85 Respiratory Rate 27 H 17 Blood Pressure 127/74 120/53 L Pulse Oximetry 98 95 Oxygen Delivery Fraction of Inspired Oxygen 02/28/25 22:00 02/28/25 22:14 03/01/25 00:00 Temperature Pulse Rate 85 85 87 Respiratory Rate 17 30 H Blood Pressure Pulse Oximetry 96 97 Oxygen Delivery Mechanical Ventilation Mechanical Ventilation Fraction of Inspired Oxygen 30 30 03/01/25 00:00 03/01/25 00:00 03/01/25 00:00 Temperature 98.0 F Pulse Rate 87 87 Respiratory Rate 30 H 30 H Blood Pressure 123/69 Pulse Oximetry 97 Oxygen Delivery Fraction of Inspired Oxygen 30 03/01/25 00:00 03/01/25 00:10 03/01/25 00:10 Temperature Pulse Rate 89 87 87 Respiratory Rate 30 H 30 H Blood Pressure Pulse Oximetry Oxygen Delivery Fraction of Inspired Oxygen 03/01/25 01:51 03/01/25 02:00 03/01/25 02:00 Temperature Pulse Rate 82 80 80 Respiratory Rate 25 H Blood Pressure 105/59 L Pulse Oximetry 97 98 Oxygen Delivery Mechanical Ventilation Fraction of Inspired Oxygen 30 03/01/25 02:00 03/01/25 04:00 03/01/25 04:00 Temperature Pulse Rate 80 80 77 Respiratory Rate 25 H 16 Blood Pressure Pulse Oximetry 95 Oxygen Delivery Mechanical Ventilation Fraction of Inspired Oxygen 30 03/01/25 04:00 03/01/25 04:00 03/01/25 04:00 Temperature 98.4 F Pulse Rate 82 82 Respiratory Rate 18 18 Blood Pressure 102/67 Pulse Oximetry 96 Oxygen Delivery Fraction of Inspired Oxygen 30 03/01/25 04:39 03/01/25 06:00 03/01/25 06:00 Temperature Pulse Rate 73 76 76 Respiratory Rate 22 H Blood Pressure 104/67 Pulse Oximetry 96 97 Oxygen Delivery Mechanical Ventilation Fraction of Inspired Oxygen 30 03/01/25 06:00 03/01/25 07:56 03/01/25 08:00 Temperature Pulse Rate 76 73 71 Respiratory Rate 22 H 17 Blood Pressure Pulse Oximetry 97 97 Oxygen Delivery Mechanical Ventilation Mechanical Ventilation Fraction of Inspired Oxygen 30 30 03/01/25 08:00 03/01/25 08:00 03/01/25 08:00 Temperature Pulse Rate 72 72 Respiratory Rate 16 Blood Pressure 97/67 L Pulse Oximetry 96 Oxygen Delivery Fraction of Inspired Oxygen 30 03/01/25 08:00 03/01/25 08:31 03/01/25 08:47 Temperature Pulse Rate 78 71 68 Respiratory Rate 16 15 Blood Pressure Pulse Oximetry 96 Oxygen Delivery Mechanical Ventilation Fraction of Inspired Oxygen 30 03/01/25 10:00 03/01/25 10:00 03/01/25 10:00 Temperature 98.5 F Pulse Rate 75 75 72 Respiratory Rate 15 18 Blood Pressure 97/67 L Pulse Oximetry 97 Oxygen Delivery Fraction of Inspired Oxygen 03/01/25 11:00 03/01/25 12:00 03/01/25 12:00 Temperature Pulse Rate 74 86 Respiratory Rate 17 20 Blood Pressure Pulse Oximetry 95 Oxygen Delivery Mechanical Ventilation Fraction of Inspired Oxygen 30 30 03/01/25 12:00 03/01/25 12:00 03/01/25 12:00 Temperature 81 F L Pulse Rate 86 82 86 Respiratory Rate 14 18 Blood Pressure 103/65 Pulse Oximetry 97 Oxygen Delivery Fraction of Inspired Oxygen 03/01/25 12:06 03/01/25 13:53 03/01/25 14:10 Temperature Pulse Rate 85 85 92 Respiratory Rate 15 26 H Blood Pressure 103/65 107/70 Pulse Oximetry 92 97 100 Oxygen Delivery Mechanical Ventilation Fraction of Inspired Oxygen 30 03/01/25 14:20 Temperature Pulse Rate 88 Respiratory Rate 17 Blood Pressure 135/85 Pulse Oximetry 100 Oxygen Delivery Fraction of Inspired Oxygen Intake/Output Intake/Output: Intake & Output 02/26/25 02/27/25 02/28/25 03/01/25 23:59 23:59 23:59 23:59 Intake Total 2746.4 1886.2 4246.2 819.3 Output Total 4075 2300 2350 2400 Balance -1328.6 -413.8 1896.2 -1580.7 Meds/Results Medications: Active Medications Generic Name Dose Route Start Last Admin Trade Name Freq PRN Reason Stop Dose Admin Acetaminophen 650 mg 02/17/25 20:19 02/27/25 20:09 Acetaminophen 325 Mg Tablet FEED TUBE 650 mg Q4H PRN Administration Mild Pain (1-3) or Fever Alteplase, Recombinant 2 mg 02/21/25 22:45 02/21/25 23:00 Alteplase 2 Mg Vial (Cathflo) IV PUSH 2 mg ONCE PRN Administration Line Occlusion Bisacodyl 10 mg 02/24/25 09:00 03/01/25 08:38 Bisacodyl 10 Mg Suppository RECTAL Not Given QAM [facility] Dextrose 12.5 gm 02/17/25 21:35 Dextrose 50% 25 Gm/50 Ml Syringe IV PUSH PRN PRN Hypoglycemia Protocol Fentanyl Citrate 100 mcg 03/01/25 14:27 Fentanyl Citrate Inj (*Crx) 100 Mcg/2 Ml Vial IV PUSH 03/01/25 14:28 ONCE ONE Folic Acid 1 mg 02/19/25 09:00 03/01/25 08:44 Folic Acid 1 Mg/0.2 Ml Inj IV PUSH 1 mg QAM KENNETH Administration Glucagon 1 mg 02/17/25 21:35 Glucagon For Inj 1 Mg Vial IM PRN PRN Hypoglycemia Protocol Glucose 15 gm 02/17/25 21:35 Glucose Oral Gel 15 Gm Of Glucse In 37.5 Gm Tube PO PRN PRN Hypoglycemia Protocol Heparin Sodium (Porcine) 5,000 units 02/18/25 14:00 03/01/25 03:00 Heparin Sodium 5,000 Units/Ml Vial SUB-Q Not Given On Hold: 03/01/25 07:34 Q8HR KENNETH Hydralazine HCl 10 mg 02/21/25 19:36 02/22/25 00:00 Hydralazine Hcl 20 Mg/Ml Vial IV PUSH 10 mg Q6H PRN Administration Blood Pressure - High Hyoscyamine 0.125 mg 02/25/25 22:25 02/27/25 20:09 Hyoscyamine Sulfate Soln 0.125 Mg/Ml Oral Syringe PO 0.125 mg Q4H PRN Administration Abdominal Cramping Dextrose 1,000 mls @ 100 mls/hr 02/17/25 21:35 Dextrose 5% 1,000 Ml IVPB PRN PRN Hypoglycemia Protocol Dexmedetomidine HCl 400 mcg in 100 mls @ 0 mls/hr 02/22/25 07:40 03/01/25 12:00 Precedex 400 Mcg/100 Ml IV CONT 0 mcg/kg/hr .Q0M KENNETH 0 mls/hr Protocol Titration 0 MCG/KG/HR Insulin Aspart 3 - 6 units 02/18/25 00:00 03/01/25 13:52 Insulin Aspart (*Bkc) 100 Units/Ml SUB-Q Not Given Q4HR KENNETH Protocol Insulin Glargine 20 units 02/28/25 09:00 02/28/25 08:09 Insulin Glargine (*Bkc) 100 Units/Ml SUB-Q 20 units On Hold: 03/01/25 07:33 QAM [facility]NETH Administration Ipratropium [place] 0.5 mg 02/22/25 07:33 02/27/25 14:47 Ipratropium Br 0.02% Inh Soln 0.5 Mg/2.5 Ml Vial INHALATION 0.5 mg Q6HRT PRN Administration Wheezing Levalbuterol HCl 0.63 mg 02/22/25 07:33 02/27/25 14:48 Levalbuterol Neb 1.25 Mg/3 Ml INHALATION 0.63 mg Q6HRT PRN Administration Wheezing Multi-Ingred Cream/Lotion/Oil/Oint 1 applic 02/17/25 21:00 03/01/25 08:40 Mineral Oil/White Petrolatum Ointment EACH EYE Not Given Q12HR KENNETH Multivitamins Therapeutic 1 tablet 02/23/25 10:00 03/01/25 08:40 Multivitamins Therapeutic Tab (*Bkc) FEED TUBE Not Given QAM KENNETH Pantoprazole Sodium 40 mg 02/18/25 09:00 03/01/25 08:44 Pantoprazole Sodium Iv 40 Mg Vial IV PUSH 40 mg Q12HR KENNETH Administration Polyethylene Glycol 17 gm 03/01/25 07:34 Polyethylene Glycol 3350 17 Gm Powd.Pack PO QAM PRN Constipation Propofol 60 mg 03/01/25 14:27 Propofol Iv Emulsion 200 Mg/20 Ml Vial IV PUSH 03/01/25 14:28 ONCE ONE Senna/Docusate Sodium 1 tab 02/17/25 21:00 02/28/25 20:33 Senna/Docusate Sodium Tablet FEED TUBE 1 tab HS KENNETH Administration Sodium Chloride 10 ml 02/18/25 22:00 03/01/25 13:53 Central Line Flush IV PUSH 10 ml Q8HR KENNETH Administration Sodium Chloride 20 ml 02/18/25 16:07 02/20/25 05:33 Central Line Flush IV PUSH 20 ml PRN PRN Administration after blood draws Thiamine HCl 100 mg 02/19/25 09:00 03/01/25 08:44 Thiamine Hcl 200 Mg/2 Ml Vial IV PUSH 100 mg QAM KENNETH Administration Radiology Results: ITS Impressions Head CT 02/17/25 16:55 IMPRESSION: 1. No acute intracranial hemorrhage. No mass effect. 2. Probable chronic ischemic white matter change. Chest/Abdomen/Pelvis CT 02/17/25 17:11 IMPRESSION: 1. Moderate sized groundglass opacities scattered throughout both lungs most prominent in the lower lobes. In addition, there are small to moderate sized patchy consolidations scattered throughout both lungs most prominent in the lower lobes. The findings are concerning for multilobar pneumonia. Other etiologies are possible but are felt to be less likely. Recommend follow-up to resolution. 2.There is a Daniels catheter in the bladder. Mild concentric thickening of the calvo of the bladder. Small amount of nondependent air in the bladder which may be due to recent instrumentation or cystitis. 3. Large amount of stool in the rectum. 4. The stomach is distended and filled with air. 5. Small amount of fat stranding with a few locules of air about the posterior aspect of the mid and distal sacrum. No obvious loculated fluid collection identified. No convincing CT evidence for sacral osteomyelitis at this time. Abdomen Ultrasound 02/19/25 13:00 Impression: Limited study. No acute process Abdomen X-Ray 02/20/25 10:54 IMPRESSION: 1. No acute abdominal abnormality. 2: Bibasilar infiltrates may represent edema or pneumonia. Renal Ultrasound 02/20/25 17:18 IMPRESSION: 1. Normal kidneys without hydronephrosis. 2. Diffuse trabeculated bladder wall thickening suggestive of sequela of chronic outlet obstruction. Chest X-Ray 02/28/25 09:25 IMPRESSION: 1. Lines and tubes in expected positions. 2. Persistent opacity left lower lung zone which could represent atelectasis or pneumonia. Labs Labs: Laboratory Results - last 24 hr 02/28/25 02/28/25 03/01/25 16:54 20:32 01:36 WBC RBC Hgb Hct MCV MCH MCHC RDW Plt Count MPV Immature Gran % (Auto) Neut % (Auto) Lymph % (Auto) [place] % (Auto) Eos % (Auto) Baso % (Auto) Lymph # (Auto) [place] # (Auto) Eos # (Auto) Baso # (Auto) Abs Immat Gran (auto) Absolute Neuts (auto) Absolute Nucleated RBC Band Neutrophils % Nucleated RBC % Platelet Estimate Hypochromasia Anisocytosis Schistocytes Puncture Site ABG pH ABG pCO2 ABG pO2 ABG PO2/FiO2 Ratio ABG HCO3 ABG O2 Saturation ABG O2 Content ABG Base Excess A-a Gradient Oxyhemoglobin Carboxyhemoglobin Methemoglobin Reduced Hemoglobin Total Hemoglobin O2 Delivery Device O2 Liters/Min Minute Volume Vent Rate Vent Mode FiO2 Tidal Volume PEEP Peak Inspir Pressure Pressure Support Sodium Potassium Chloride Carbon Dioxide Anion Gap BUN Creatinine Estim Creat Clear Calc Estimated GFR Glucose POC Capillary Glucose 161 H 176 H 199 H Calcium Phosphorus Magnesium Total Bilirubin AST ALT Alkaline Phosphatase Total Protein Albumin 03/01/25 03/01/25 03/01/25 04:25 05:11 06:25 WBC 11.6 H RBC 2.70 L Hgb 7.2 L Hct 24.3 L MCV 90.0 MCH 26.7 MCHC 29.6 L RDW 17.2 H Plt Count 247 MPV 10.2 Immature Gran % (Auto) 0.9 H Neut % (Auto) 84.2 H Lymph % (Auto) 8.1 L [place] % (Auto) 5.8 Eos % (Auto) 0.7 Baso % (Auto) 0.3 Lymph # (Auto) 0.94 [place] # (Auto) 0.7 H Eos # (Auto) 0.1 Baso # (Auto) 0.0 Abs Immat Gran (auto) 0.11 H Absolute Neuts (auto) 9.8 H Absolute Nucleated RBC 0.000 Band Neutrophils % Not Reportable Nucleated RBC % 0.0 Platelet Estimate Adequate Hypochromasia 1+ Anisocytosis 1+ Schistocytes None seen Puncture Site Right radial ABG pH 7.473 H ABG pCO2 35.5 ABG pO2 84.6 ABG PO2/FiO2 Ratio 2.82 ABG HCO3 25.4 ABG O2 Saturation 97.0 ABG O2 Content 10.9 L ABG Base Excess 1.8 A-a Gradient 87.6 Oxyhemoglobin 94.3 Carboxyhemoglobin 0.9 Methemoglobin 0.3 Reduced Hemoglobin 4.5 Total Hemoglobin 8.1 L O2 Delivery Device Ventilator O2 Liters/Min Not Reportable Minute Volume Not Reportable Vent Rate 12 Vent Mode Cmv FiO2 30 Tidal Volume 300 PEEP 5 Peak Inspir Pressure Not Reportable Pressure Support Not Reportable Sodium 141 Potassium 3.5 Chloride 113 H Carbon Dioxide 27 Anion Gap 1 L BUN 19 Creatinine 0.32 L Estim Creat Clear Calc 181 Estimated GFR > 60 Glucose 176 H POC Capillary Glucose 163 H Calcium 8.3 L Phosphorus 2.8 Magnesium 2.0 Total Bilirubin 0.3 AST 24 ALT 30 Alkaline Phosphatase 133 H Total Protein 5.5 L Albumin 2.3 L 03/01/25 03/01/25 09:19 13:50 WBC RBC Hgb Hct MCV MCH MCHC RDW Plt Count MPV Immature Gran % (Auto) Neut % (Auto) Lymph % (Auto) [place] % (Auto) Eos % (Auto) Baso % (Auto) Lymph # (Auto) [place] # (Auto) Eos # (Auto) Baso # (Auto) Abs Immat Gran (auto) Absolute Neuts (auto) Absolute Nucleated RBC Band Neutrophils % Nucleated RBC % Platelet Estimate Hypochromasia Anisocytosis Schistocytes Puncture Site ABG pH ABG pCO2 ABG pO2 ABG PO2/FiO2 Ratio ABG HCO3 ABG O2 Saturation ABG O2 Content ABG Base Excess A-a Gradient Oxyhemoglobin Carboxyhemoglobin Methemoglobin Reduced Hemoglobin Total Hemoglobin O2 Delivery Device O2 Liters/Min Minute Volume Vent Rate Vent Mode FiO2 Tidal Volume PEEP Peak Inspir Pressure Pressure Support Sodium Potassium Chloride Carbon Dioxide Anion Gap BUN Creatinine Estim Creat Clear Calc Estimated GFR Glucose POC Capillary Glucose 144 H 141 H Calcium Phosphorus Magnesium Total Bilirubin AST ALT Alkaline Phosphatase Total Protein Albumin
[2025-03-01] MEDS: fentaNYL CITRATE INJ (*CRX) 100 MCG/2 ML VIAL IV PUSH (15:04)
[2025-03-01] MEDS: PROPOFOL IV EMULSION 200 MG/20 ML VIAL 60 MG IV PUSH (15:05)
--- NOTE | 2025-03-01 17:01 | PCRCNOTE ---
Pt placed back in [facility] at 1646
[2025-03-01] MEDS: MINERAL OIL/WHITE PETROLATUM OINTMENT 1 APPLIC EACH EYE (20:37)
[2025-03-01] MEDS: SENNA/DOCUSATE SODIUM TABLET 1 TAB FEED TUBE (20:37)
[2025-03-02] VITALS (20 sets, daily range): BP systolic 99–135; BP diastolic 66–84; PULSE 94–108; RESP 18–29; TEMP 36.5–37.1; O2SAT 92–100
[2025-03-02] MEDS: CENTRAL LINE FLUSH 10 ML IV PUSH ×3 (04:08→20:38)
[2025-03-02 04:10] LABS: Hematocrit 25.8 % (42.0-52.0); Hemoglobin 7.9 g/dL (14.0-18.0); Immature Granulocyte Percent A 0.9 % (0-0.5); Lymphocytes Absolute Auto 0.85 K/mm3 (0.9-3.2); Mean Corpuscular HGB Conc 30.6 g/dl (32-36); Mean Corpuscular Hemoglobin 26.8 pg (26-34); Mean Corpuscular Volume 87.5 fl (80-100); Nucleated Red Blood Cells Absolute Auto 0.000 K/mm3 (0.0-0.012); Nucleated Red Blood Cells Perc 0.0 % (0.0-0.2); Platelet Count Result 306 k/mm3 (150-375); Red Blood Count 2.95 M/mm3 (4.6-6.20); White Blood Count 13.3 K/mm3 (4.5-10.0)
[2025-03-02 04:41] LABS: Alanine Aminotransferase 27 U/L (6-50); Albumin Level 2.4 g/dL (3.5-5.1); Alkaline Phosphatase 135 U/L (38-126); Anion Gap 8 mmol/L (4-12); Aspartate Amino Transferase 25 U/L (17-59); Bilirubin,Total 0.5 mg/dL (0.2-1.3); Blood Urea Nitrogen 26 mg/dL (9-20); Calcium 8.5 mg/dL (8.4-10.2); Carbon Dioxide 22 mmol/L (22-30); Chloride 112 mmol/L (98-107); Estimated CRCL calculation 140 ml/min; Estimated Glomerular Filt Rate > 60; Glucose 163 mg/dL (65-110); Magnesium 2.1 mg/dL (1.6-2.3); Potassium 3.7 mmol/L (3.4-5.0); Sodium 142 mmol/L (137-145); Total Protein 5.8 g/dL (6.3-8.2)
[2025-03-02] MEDS: ALTEPLASE 2 MG VIAL (CATHFLO) IV PUSH (04:53)
[2025-03-02 05:16] LABS: Alveolar/Arterial O2 Gradient 93.4 mmHg; Carboxyhemoglobin 1.2 % THb (0-2.0); Fractional Inspired Oxygen 30 %; HCO3 ABG 17.5 mEq/l (22.0-26.0); Methemoglobin ABG 0.3 %THb (0-1.5); Oxygen Content ABG 14.7 %vol (16.0-22.0); Oxygen Saturation ABG 97.5 % (95.0-100.0); PCO2 ABG 24.8 mmHg (35.0-45.0); PO2 ABG 91.4 mmHg (80.0-100.0); PO2 FiO2 Ratio Arterial Blood 3.05 %; Reduced Hemoglobin 3.1 %THb (0-5.0)
[2025-03-02 05:17] LABS: Modified Allen's Test Pass; Site Drawn LEFT RADIAL
[2025-03-02] MEDS: ALBUMIN HUMAN 25% 25 GM/100 ML 100 ML IVPB (07:22)
--- NOTE | 2025-03-02 07:42 | P.PNINT_ITS ---
Progress Note: A&P Assessment and Plan (1) Septic shock: Code(s): A41.9 - Sepsis, unspecified organism; R65.21 - Severe sepsis with septic shock Status: Acute Assessment and Plan: 02/17: Patient presented from a [facility] with altered mental status, shortness of breath. Initially had Leukocytosis. Patient did receive 2 L IV fluid bolus in the ER, was transferred to the intermediate Unit and immediately upon arrival to the IMU, rapid response was called due to hypoxia, tachypnea, tachycardia. Patient was transferred to of the ICU -likely etiology pneumonia and UTI -lactic acid normalized in patient is now off of vasopressors -adequately fluid-resuscitated in the ICU -02/17: Preliminary blood cultures are negative x2 -02/17: Urine cultures grew superficial organisms -02/18: Sputum culture growing Klebsiella friend, MRSA and Dolores tropicalis 02/17: Nasal MRSA screen was positive Completed full course off cefepime, doxycycline and vancomycin Off IV fluids (2) Acute respiratory failure: Code(s): J96.00 - Acute respiratory failure, unspecified whether with hypoxia or hypercapnia Status: Acute Assessment and Plan: 02/17: Patient was transferred to the ICU from intermediate Unit. He was emergently intubated by ER physician likely cause multifocal pneumonia Patient is on CMV mode of ventilation, peep of 10, 40% FiO2. Decrease PEEP to 8 Continue bronchodilators - Xopenex and Atrovent but change to p.r.n. 02/22 Patient awake and following commands but tachypneic with rate in high 30s. When I placed patient on PSV 01/28 patient's respiratory rate was up to 40s. Patient was started on Precedex infusion for anxiolysis and given Lasix 02/23 5/8 PSV done again today. RSBI borderline. Patient with increased work of breathing. Will increase pressure support and continue as long as patient tolerates. Will give another dose of Lasix today 02/24 PSV weaning trial was again attempted this morning. High RSBI and respiratory rate. Patient needed pressure support of 15/8 for adequate RSBI. Patient was then placed on ASV at 80%. It was continued through the day. Patient appears very weak and debilitated. Weaning is going to be difficult and long. Patient may very well need tracheostomy. Will continue working with him daily 02/26 patient placed on PSV again. His tidal volumes are in 200s. She is debilitated and weak. Patient has history of high cervical myelopathy they could be component of diaphragmatic weakness. Even if he is extubated he will not be able to use BiPAP considering he can not even lift his hands off the bed. I anticipate patient will need tracheostomy. Will continue working through the weekend and revisit this with patient's family. 02/27 will try PSV again today. I will discuss with family with regard to option of tracheostomy and PEG tube placement 02/28 patient was placed on PSV again his tidal volumes are less than 200 mL and rate consistently above 30. Patient was placed on higher pressure support of 10 which provides acceptable RSBI. I will discuss with patient's family regarding proceeding with tracheostomy and PEG tube placement. 03/01: Status post tracheostomy and PEG tube placed. Patient tolerated ASV post tracheostomy with spontaneous breathing but requiring higher pressure support 03/02: Placed on PSV 1205, tolerating for now, will switch to ASV if patient tires out or is tachypneic/tachycardic. Lasix with albumin will be given today Chest x-ray and ABG reviewed. Decrease tidal volume to 300 Continue daily assessment for SBT, Status post antibiotics ammonia 02/17: CT chest, abdomen and pelvis IMPRESSION: 1. Moderate sized groundglass opacities scattered throughout both lungs most prominent in the lower lobes. In addition, there are small to moderate sized patchy consolidations scattered throughout both lungs most prominent in the lower lobes. The findings are concerning for multilobar pneumonia. Other etiologies are possible but are felt to be less likely. Recommend follow-up to resolution. 2.There is a Daniels catheter in the bladder. Mild concentric thickening of the calvo of the bladder. Small amount of nondependent air in the bladder which may be due to recent instrumentation or cystitis. 3. Large amount of stool in the rectum. 4. The stomach is distended and filled with air. 5. Small amount of fat stranding with a few locules of air about the posterior aspect of the mid and distal sacrum. No obvious loculated fluid collection identified. No convincing CT evidence for sacral osteomyelitis at this time. 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 now that patient is back on tube feeds which are being increased to goal (6) Sacral ulcer: Qualifiers: Non-pressure ulcer stage: unspecified non-pressure ulcer stage Qualified Code(s): L98.429 - Non-pressure chronic ulcer of back with unspecified severity Code(s): L98.429 - Non-pressure chronic ulcer of back with unspecified severity Status: Acute Assessment and Plan: Patient has a sacral ulcer -appreciate wound care evaluation and recommendations 02/17: CT abdomen and pelvis: Small amount of fat stranding with a few locules of air about the posterior aspect of the mid and distal sacrum. No obvious loculated fluid collection identified. No convincing CT evidence for sacral osteomyelitis at this time. (7) Severe protein-calorie malnutrition: Code(s): E43 - Unspecified severe protein-calorie malnutrition Status: Acute Assessment and Plan: According to the niece patient has lost lot of weight since August 2024, initially she stated he unable to feed himself due to his neuropathy and was not being adequately fed at the [facility], after this surgery and when he was able to move his arms he stated he was not eating well because he was not hungry. -patient's BMI is 18.3, given his height, age, gender he does classify into severe protein calorie malnutrition -appreciate dietitian evaluation recommendations -continue tube feeds. Advance to goal today -continue thiamine and folic acid. Contain MVI -discontinue Reglan as patient having adequate bowel movements and tolerating tube feeds (8) Electrolyte imbalance: Code(s): E87.8 - Other disorders of electrolyte and fluid balance, not elsewhere classified Status: Acute Assessment and Plan: Hypernatremia improved. Off D5 water. Continue increased free water flushes Replace low potassium Nephrology following (9) Constipation: Qualifiers: Constipation type: other constipation type Qualified Code(s): K59.09 - Other constipation Code(s): K59.00 - Constipation, unspecified Status: Acute Assessment and Plan: Large amount of stool in the rectal vault as seen on the CT scan of the abdomen and pelvis -patient has not had a bowel movement -02/20: Soapsuds enema was given without much improved -status post lactulose enema -continue p.r.n. MiraLax bisacodyl and senna S -patient is having bowel movements now (10) Weakness: Code(s): R53.1 - Weakness Status: Acute Assessment and Plan: Patient had cervical myelopathy and had some ankle surgery with fusion and instrumentation early this year since then patient has been mostly bedbound. Family states the patient has been in the [facility] in the bed and few times in a wheelchair. He has significant weakness in both arms and legs. They also state that he had poor p.o. intake and had trouble and difficulty with the eating. Plan DVT prophylaxis: Heparin subQ, Stress ulcer prophylaxis: Protonix Nutrition: Tube feeds via PEG tube Code Status: Full code Critical Care Time Spent: 32 minutes Due to a high probability of clinically significant, life threatening deterioration, the patient required my highest level of preparedness to intervene emergently and I personally spent this critical care time directly and personally managing the patient. This critical care time included obtaining a history; examining the patient; pulse oximetry; ordering and review of studies; arranging urgent treatment with development of a management plan; evaluation of patient's response to treatment; frequent reassessment; and discussions with other providers. It was exclusive of separately billable procedures and treating other patients and teaching time. Please see Assessment and Plan section and the rest of the note for further information on patient assessment and treatment This dictation may have been done utilizing a voice recognition system. Attempts have been made to correct errors. However, there may be uncorrected grammatical, spelling, and recognitions errors present. Subjective Date/time seen: 03/02/25 07:42 Interval history: Reason for consult: Septic shock, acute respiratory failure, pneumonia, UTI, lactic acidosis, altered mental status 64yo male with HLD, DM and Asthma who presents with altered mental status and hypoxia from his [facility]. Rapid response called once patient arrived to IMU for being hypoxic. Transferred to the ICU and emergently intubated by ER physician 03/01: Tracheostomy and PEG tube placement 03/02/2025: Patient seen and examined the ICU, remains intubated on ASV mode of ventilation, peep of 5, 30% FiO2. Has been off Precedex, is awake, alert, nods to questions. Urine output has been adequate, positive bowel movements, tolerating tube feeds via PEG tube. Afebrile and hemodynamically stable Review of Systems Review of Systems: ROS unobtainable: Yes unobtainable due to endotracheal tube, unobtainable due to medical condition and unobtainable due to mental status Exam Narrative: General: Status post tracheostomy, not on any sedation, in no acute distress HEENT:? Pupils equal and reactive, sclera is clear, tracheostomy in place Neck:? Supple Respiratory:? Coarse breath sounds bilaterally Lt > Rt, decreased at bases, no wheezing, adequate air entry Cardiac:? S1-S2 is normal, normal sinus rhythm Abdomen:? Scaphoid abdomen, soft, nontender, hypoactive bowel sounds, patient c achectic and malnourished, patient has a sacral decubitus ulcer. PEG tube in place Extremities:? Bilateral upper and lower extremity puffiness noted, decreased pedal pulses Neuro:? Status post tracheostomy, on ventilator. Not on any sedation, is awake, nods to questions, follows simple commands in upper extremities, extremely weak and lower extremities, barely able to move his lower extremities Skin:? old healing ulcers on the feet bilaterally Psych:? Unable to assess at this time Objective Data Vital Signs Vital Signs: Vital Signs - 24 hr 03/01/25 07:56 03/01/25 08:00 03/01/25 08:00 Temperature Pulse Rate 73 71 72 Respiratory Rate 17 Blood Pressure Pulse Oximetry 97 97 Oxygen Delivery Mechanical Ventilation Mechanical Ventilation Fraction of Inspired Oxygen 30 30 03/01/25 08:00 03/01/25 08:00 03/01/25 08:00 Temperature Pulse Rate 72 78 Respiratory Rate 16 16 Blood Pressure 97/67 L Pulse Oximetry 96 Oxygen Delivery Fraction of Inspired Oxygen 30 03/01/25 08:31 03/01/25 08:47 03/01/25 10:00 Temperature Pulse Rate 71 68 75 Respiratory Rate 15 Blood Pressure Pulse Oximetry 96 Oxygen Delivery Mechanical Ventilation Fraction of Inspired Oxygen 30 03/01/25 10:00 03/01/25 10:00 03/01/25 11:00 Temperature 98.5 F Pulse Rate 75 72 74 Respiratory Rate 15 18 17 Blood Pressure 97/67 L Pulse Oximetry 97 Oxygen Delivery Fraction of Inspired Oxygen 03/01/25 12:00 03/01/25 12:00 03/01/25 12:00 Temperature Pulse Rate 86 86 Respiratory Rate 20 Blood Pressure Pulse Oximetry 95 Oxygen Delivery Mechanical Ventilation Fraction of Inspired Oxygen 30 30 03/01/25 12:00 03/01/25 12:00 03/01/25 12:06 Temperature 81 F L Pulse Rate 82 86 85 Respiratory Rate 14 18 Blood Pressure 103/65 Pulse Oximetry 97 92 Oxygen Delivery Mechanical Ventilation Fraction of Inspired Oxygen 30 03/01/25 13:53 03/01/25 14:00 03/01/25 14:00 Temperature Pulse Rate 85 79 88 Respiratory Rate 15 19 Blood Pressure 103/65 Pulse Oximetry 97 Oxygen Delivery Fraction of Inspired Oxygen 03/01/25 14:10 03/01/25 14:20 03/01/25 14:32 Temperature Pulse Rate 92 88 80 Respiratory Rate 26 H 17 Blood Pressure 107/70 135/85 Pulse Oximetry 100 100 100 Oxygen Delivery Mechanical Ventilation Fraction of Inspired Oxygen 100 03/01/25 16:00 03/01/25 16:00 03/01/25 16:00 Temperature 98.3 F Pulse Rate 92 92 92 Respiratory Rate 23 H 20 22 H Blood Pressure 123/77 Pulse Oximetry 97 93 Oxygen Delivery Mechanical Ventilation Fraction of Inspired Oxygen 30 03/01/25 16:00 03/01/25 16:00 03/01/25 16:46 Temperature Pulse Rate 92 95 Respiratory Rate Blood Pressure Pulse Oximetry 93 Oxygen Delivery Mechanical Ventilation Fraction of Inspired Oxygen 30 30 03/01/25 17:59 03/01/25 17:59 03/01/25 18:00 Temperature Pulse Rate 91 91 91 Respiratory Rate 22 H 18 Blood Pressure 102/64 Pulse Oximetry 97 Oxygen Delivery Fraction of Inspired Oxygen 03/01/25 20:00 03/01/25 20:00 03/01/25 20:00 Temperature Pulse Rate 94 93 Respiratory Rate Blood Pressure Pulse Oximetry 97 Oxygen Delivery Mechanical Ventilation Fraction of Inspired Oxygen 30 30 03/01/25 20:00 03/01/25 20:03 03/01/25 21:59 Temperature Pulse Rate 93 93 94 Respiratory Rate 14 Blood Pressure 90/56 L Pulse Oximetry 97 96 Oxygen Delivery Mechanical Ventilation Fraction of Inspired Oxygen 30 03/01/25 21:59 03/01/25 23:10 03/02/25 00:00 Temperature 97.9 F Pulse Rate 94 94 Respiratory Rate 20 Blood Pressure 95/67 L Pulse Oximetry 98 95 97 Oxygen Delivery Mechanical Ventilation Mechanical Ventilation Fraction of Inspired Oxygen 30 30 03/02/25 00:00 03/02/25 00:00 03/02/25 00:00 Temperature 98.4 F Pulse Rate 95 95 Respiratory Rate 18 Blood Pressure 104/67 Pulse Oximetry 96 Oxygen Delivery Fraction of Inspired Oxygen 30 03/02/25 02:00 03/02/25 02:00 03/02/25 02:20 Temperature 98.4 F Pulse Rate 97 97 96 Respiratory Rate 20 Blood Pressure 99/67 L Pulse Oximetry 100 99 Oxygen Delivery Mechanical Ventilation Fraction of Inspired Oxygen 30 03/02/25 03:24 03/02/25 04:00 03/02/25 04:00 Temperature Pulse Rate 102 H 95 Respiratory Rate Blood Pressure Pulse Oximetry 98 Oxygen Delivery Mechanical Ventilation Fraction of Inspired Oxygen 30 30 03/02/25 04:00 03/02/25 04:49 03/02/25 06:00 Temperature 98.6 F Pulse Rate 95 101 H 94 Respiratory Rate 18 Blood Pressure 104/66 Pulse Oximetry 99 97 Oxygen Delivery Mechanical Ventilation Fraction of Inspired Oxygen 30 03/02/25 06:00 Temperature 97.8 F Pulse Rate 98 Respiratory Rate 18 Blood Pressure 101/70 Pulse Oximetry 100 Oxygen Delivery Fraction of Inspired Oxygen Intake/Output Intake/Output: Intake & Output 02/27/25 02/28/25 03/01/25 03/02/25 23:59 23:59 23:59 23:59 Intake Total 1886.2 4246.2 819.3 628 Output Total 2300 2350 2700 450 Balance -413.8 1896.2 -1880.7 178 Meds/Results Medications: Active Medications Generic Name Dose Route Start Last Admin Trade Name Freq PRN Reason Stop Dose Admin Acetaminophen 650 mg 02/17/25 20:19 02/27/25 20:09 Acetaminophen 325 Mg Tablet FEED TUBE 650 mg Q4H PRN Administration Mild Pain (1-3) or Fever Alteplase, Recombinant 2 mg 02/21/25 22:45 03/02/25 04:53 Alteplase 2 Mg Vial (Cathflo) IV PUSH 2 mg ONCE PRN Administration Line Occlusion Bisacodyl 10 mg 02/24/25 09:00 03/01/25 08:38 Bisacodyl 10 Mg Suppository RECTAL Not Given QAM KENNETH Dextrose 12.5 gm 02/17/25 21:35 Dextrose 50% 25 Gm/50 Ml Syringe IV PUSH PRN PRN Hypoglycemia Protocol Folic Acid 1 mg 02/19/25 09:00 03/01/25 08:44 Folic Acid 1 Mg/0.2 Ml Inj IV PUSH 1 mg QAM KENNETH Administration Glucagon 1 mg 02/17/25 21:35 Glucagon For Inj 1 Mg Vial IM PRN PRN Hypoglycemia Protocol Glucose 15 gm 02/17/25 21:35 Glucose Oral Gel 15 Gm Of Glucse In 37.5 Gm Tube PO PRN PRN Hypoglycemia Protocol Heparin Sodium (Porcine) 5,000 units 02/18/25 14:00 03/01/25 03:00 Heparin Sodium 5,000 Units/Ml Vial SUB-Q Not Given Q8HR [facility] Hydralazine HCl 10 mg 02/21/25 19:36 02/22/25 00:00 Hydralazine Hcl 20 Mg/Ml Vial IV PUSH 10 mg Q6H PRN Administration Blood Pressure - High Hyoscyamine 0.125 mg 02/25/25 22:25 02/27/25 20:09 Hyoscyamine Sulfate Soln 0.125 Mg/Ml Oral Syringe PO 0.125 mg Q4H PRN Administration Abdominal Cramping Dextrose 1,000 mls @ 100 mls/hr 02/17/25 21:35 Dextrose 5% 1,000 Ml IVPB PRN PRN Hypoglycemia Protocol Albumin Human 100 mls @ 60 mls/hr 03/02/25 06:58 03/02/25 07:22 Albutein IVPB 03/02/25 08:37 60 mls/hr ONCE ONE Administration Insulin Aspart 3 - 6 units 02/18/25 00:00 03/02/25 05:31 Insulin Aspart (*Bkc) 100 Units/Ml SUB-Q Not Given Q4HR [facility] Protocol Insulin Glargine 10 units 03/02/25 21:00 Insulin Glargine (*Bkc) 100 Units/Ml SUB-Q HS KENNETH Ipratropium [place] 0.5 mg 02/22/25 07:33 02/27/25 14:47 Ipratropium Br 0.02% Inh Soln 0.5 Mg/2.5 Ml Vial INHALATION 0.5 mg Q6HRT PRN Administration Wheezing Levalbuterol HCl 0.63 mg 02/22/25 07:33 02/27/25 14:48 Levalbuterol Neb 1.25 Mg/3 Ml INHALATION 0.63 mg Q6HRT PRN Administration Wheezing Multi-Ingred Cream/Lotion/Oil/Oint 1 applic 02/17/25 21:00 03/01/25 20:37 Mineral Oil/White Petrolatum Ointment EACH EYE 1 applic Q12HR KENNETH Administration Multivitamins Therapeutic 1 tablet 02/23/25 10:00 03/01/25 08:40 Multivitamins Therapeutic Tab (*Bkc) FEED TUBE Not Given QAM KENNETH Pantoprazole Sodium 40 mg 02/18/25 09:00 03/01/25 20:37 Pantoprazole Sodium Iv 40 Mg Vial IV PUSH 40 mg Q12HR KENNETH Administration Polyethylene Glycol 17 gm 03/01/25 07:34 Polyethylene Glycol 3350 17 Gm Powd.Pack PO QAM PRN Constipation Senna/Docusate Sodium 1 tab 02/17/25 21:00 03/01/25 20:37 Senna/Docusate Sodium Tablet FEED TUBE 1 tab HS KENNETH Administration Sodium Chloride 10 ml 02/18/25 22:00 03/02/25 04:08 Central Line Flush IV PUSH 10 ml Q8HR KENNETH Administration Sodium Chloride 20 ml 02/18/25 16:07 02/20/25 05:33 Central Line Flush IV PUSH 20 ml PRN PRN Administration after blood draws Thiamine HCl 100 mg 02/19/25 09:00 03/01/25 08:44 Thiamine Hcl 200 Mg/2 Ml Vial IV PUSH 100 mg QAM KENNETH Administration Radiology Results: ITS Impressions Head CT 02/17/25 16:55 IMPRESSION: 1. No acute intracranial hemorrhage. No mass effect. 2. Probable chronic ischemic white matter change. Chest/Abdomen/Pelvis CT 02/17/25 17:11 IMPRESSION: 1. Moderate sized groundglass opacities scattered throughout both lungs most prominent in the lower lobes. In addition, there are small to moderate sized patchy consolidations scattered throughout both lungs most prominent in the lower lobes. The findings are concerning for multilobar pneumonia. Other etiologies are possible but are felt to be less likely. Recommend follow-up to resolution. 2.There is a Daniels catheter in the bladder. Mild concentric thickening of the calvo of the bladder. Small amount of nondependent air in the bladder which may be due to recent instrumentation or cystitis. 3. Large amount of stool in the rectum. 4. The stomach is distended and filled with air. 5. Small amount of fat stranding with a few locules of air about the posterior aspect of the mid and distal sacrum. No obvious loculated fluid collection identified. No convincing CT evidence for sacral osteomyelitis at this time. Abdomen Ultrasound 02/19/25 13:00 Impression: Limited study. No acute process Abdomen X-Ray 02/20/25 10:54 IMPRESSION: 1. No acute abdominal abnormality. 2: Bibasilar infiltrates may represent edema or pneumonia. Renal Ultrasound 02/20/25 17:18 IMPRESSION: 1. Normal kidneys without hydronephrosis. 2. Diffuse trabeculated bladder wall thickening suggestive of sequela of chronic outlet obstruction. Chest X-Ray 02/28/25 09:25 IMPRESSION: 1. Lines and tubes in expected positions. 2. Persistent opacity left lower lung zone which could represent atelectasis or pneumonia. Labs Labs: Laboratory Results - last 24 hr 03/01/25 03/01/25 03/01/25 09:19 13:50 16:40 WBC RBC Hgb Hct MCV MCH MCHC RDW Plt Count MPV Immature Gran % (Auto) Neut % (Auto) Lymph % (Auto) [place] % (Auto) Eos % (Auto) Baso % (Auto) Lymph # (Auto) [place] # (Auto) Eos # (Auto) Baso # (Auto) Abs Immat Gran (auto) Absolute Neuts (auto) Absolute Nucleated RBC Nucleated RBC % Puncture Site ABG pH ABG pCO2 ABG pO2 ABG PO2/FiO2 Ratio ABG HCO3 ABG O2 Saturation ABG O2 Content ABG Base Excess A-a Gradient Oxyhemoglobin Carboxyhemoglobin Methemoglobin Reduced Hemoglobin Total Hemoglobin O2 Delivery Device O2 Liters/Min Minute Volume Vent Rate Vent Mode FiO2 Tidal Volume PEEP Peak Inspir Pressure Pressure Support Sodium Potassium Chloride Carbon Dioxide Anion Gap BUN Creatinine Estim Creat Clear Calc Estimated GFR Glucose POC Capillary Glucose 144 H 141 H 133 H Calcium Phosphorus Magnesium Total Bilirubin AST ALT Alkaline Phosphatase Total Protein Albumin 03/01/25 03/02/25 03/02/25 20:37 00:20 04:05 WBC 13.3 H RBC 2.95 L Hgb 7.9 L Hct 25.8 L MCV 87.5 MCH 26.8 MCHC 30.6 L RDW 17.1 H Plt Count 306 MPV 9.8 Immature Gran % (Auto) 0.9 H Neut % (Auto) 87.0 H Lymph % (Auto) 6.4 L [place] % (Auto) 5.3 Eos % (Auto) 0.2 Baso % (Auto) 0.2 Lymph # (Auto) 0.85 L [place] # (Auto) 0.7 H Eos # (Auto) 0.0 Baso # (Auto) 0.0 Abs Immat Gran (auto) 0.12 H Absolute Neuts (auto) 11.6 H Absolute Nucleated RBC 0.000 Nucleated RBC % 0.0 Puncture Site ABG pH ABG pCO2 ABG pO2 ABG PO2/FiO2 Ratio ABG HCO3 ABG O2 Saturation ABG O2 Content ABG Base Excess A-a Gradient Oxyhemoglobin Carboxyhemoglobin Methemoglobin Reduced Hemoglobin Total Hemoglobin O2 Delivery Device O2 Liters/Min Minute Volume Vent Rate Vent Mode FiO2 Tidal Volume PEEP Peak Inspir Pressure Pressure Support Sodium 142 Potassium 3.7 Chloride 112 H Carbon Dioxide 22 Anion Gap 8 BUN 26 H Creatinine 0.43 L Estim Creat Clear Calc 140 Estimated GFR > 60 Glucose 163 H POC Capillary Glucose 142 H 140 H Calcium 8.5 Phosphorus 3.2 Magnesium 2.1 Total Bilirubin 0.5 AST 25 ALT 27 Alkaline Phosphatase 135 H Total Protein 5.8 L Albumin 2.4 L 03/02/25 04:52 WBC RBC Hgb Hct MCV MCH MCHC RDW Plt Count MPV Immature Gran % (Auto) Neut % (Auto) Lymph % (Auto) [place] % (Auto) Eos % (Auto) Baso % (Auto) Lymph # (Auto) [place] # (Auto) Eos # (Auto) Baso # (Auto) Abs Immat Gran (auto) Absolute Neuts (auto) Absolute Nucleated RBC Nucleated RBC % Puncture Site Left radial ABG pH 7.466 H ABG pCO2 24.8 L ABG pO2 91.4 ABG PO2/FiO2 Ratio 3.05 ABG HCO3 17.5 L ABG O2 Saturation 97.5 ABG O2 Content 14.7 L ABG Base Excess -4.9 A-a Gradient 93.4 Oxyhemoglobin 95.4 Carboxyhemoglobin 1.2 Methemoglobin 0.3 Reduced Hemoglobin 3.1 Total Hemoglobin 10.9 L O2 Delivery Device Ventilator O2 Liters/Min Not Reportable Minute Volume Not Reportable Vent Rate Not Reportable Vent Mode Asv FiO2 30 Tidal Volume Not Reportable PEEP 5 Peak Inspir Pressure Not Reportable Pressure Support Not Reportable Sodium Potassium Chloride Carbon Dioxide Anion Gap BUN Creatinine Estim Creat Clear Calc Estimated GFR Glucose POC Capillary Glucose Calcium Phosphorus Magnesium Total Bilirubin AST ALT Alkaline Phosphatase Total Protein Albumin Quality VTE Prophylaxis VTE prophylaxis: pharmacologic ordered
[2025-03-02] MEDS: THIAMINE HCL 200 MG/2 ML VIAL 100 MG IV PUSH (08:35)
[2025-03-02] MEDS: MULTIVITAMINS THERAPEUTIC TAB (*BKC) 1 TABLET FEED TUBE (08:35)
[2025-03-02] MEDS: PANTOPRAZOLE SODIUM IV 40 MG VIAL IV PUSH ×2 (08:35→20:37)
[2025-03-02] MEDS: MINERAL OIL/WHITE PETROLATUM OINTMENT 1 APPLIC EACH EYE ×2 (08:36→20:37)
[2025-03-02] MEDS: POTASSIUM CHLORIDE 20 MEQ PACKET (FOR LIQUID) 40 MEQ PO (08:36)
[2025-03-02] MEDS: FOLIC ACID 1 MG/0.2 ML INJ IV PUSH (08:36)
[2025-03-02] MEDS: FUROSEMIDE INJ 40 MG/4 ML VIAL IV PUSH (08:51)
--- NOTE | 2025-03-02 11:58 | PCFNICU ---
ICU Rounding Note: Pt current nutrition is Vital AF 1.2 at 50 ml/hr. Nutrition recommendation: goal rate at 70 ml/hr. Also recommending Jason BID for wound healing. Last recorded weight is 67 kg., up from 56.1 kg on admit. Bowel Motility: Last reported BM 03/01 Labs Reviewed:Glu 163, BUN 26, Cr 0.43, Alb 2.4 Meds Noted:MVI, Folic Acid, Miralax, Reglan, Senokot. Skin: stage III-pressure ulcer saccum Additional Notes: Patient is current with Trach/PEG. Tube feedings are being tolerated of Vital AF 1.2 at 50 ml/hr with plans to get to goal rate today of 70 ml/hr. Jason BID starting for additional wound healing. Total Nutrition: 2008 kcal/121 gm protein/1249 ml water. Flush 200 ml q 4 hours. Plans for LTAC at discharge. Following daily in ICU rounds. Will monitor weight, labs, skin, diet orders, meds every Friday and Friday.
[2025-03-02] MEDS: INSULIN ASPART (*BKC) 100 UNITS/ML SUB-Q ×2 (12:13→18:32)
--- NOTE | 2025-03-02 14:39 | WPDANESPN ---
Anes - Prog Note Post-Op Date/Time: 03/02/25 14:39 Cardiovascular status: normal Respiratory status: normal Airway patency: baseline Mental status: baseline Post-Op hydration status: normal Vital Signs: Last Vital Signs Temp 36.5 C 03/02/25 12:00 Pulse 96 03/02/25 14:00 Resp 25 H 03/02/25 14:00 BP 116/71 03/02/25 14:00 Pulse Ox 100 03/02/25 14:00 O2 Del Method Mechanical Ventilation 03/02/25 13:54 O2 Flow Rate 6 02/17/25 19:05 FiO2 30 03/02/25 13:54 Pain Score (VAS): 0 I/O: Intake & Output 03/01/25 03/02/25 03/02/25 23:59 07:59 15:59 Intake Total 0 628 100 Output Total 300 450 975 Balance -300 178 -875 Laboratory Tests 03/02/25 04:05 03/02/25 04:05 03/01/25 03/01/25 03/02/25 16:40 20:37 00:20 WBC RBC Hgb Hct MCV MCH MCHC RDW Plt Count MPV Immature Gran % (Auto) Neut % (Auto) Lymph % (Auto) [place] % (Auto) Eos % (Auto) Baso % (Auto) Lymph # (Auto) [place] # (Auto) Eos # (Auto) Baso # (Auto) Abs Immat Gran (auto) Absolute Neuts (auto) Absolute Nucleated RBC Nucleated RBC % Puncture Site ABG pH ABG pCO2 ABG pO2 ABG PO2/FiO2 Ratio ABG HCO3 ABG O2 Saturation ABG O2 Content ABG Base Excess A-a Gradient Oxyhemoglobin Carboxyhemoglobin Methemoglobin Reduced Hemoglobin Total Hemoglobin O2 Delivery Device O2 Liters/Min Minute Volume Vent Rate Vent Mode FiO2 Tidal Volume PEEP Peak Inspir Pressure Pressure Support Sodium Potassium Chloride Carbon Dioxide Anion Gap BUN Creatinine Estim Creat Clear Calc Estimated GFR Glucose POC Capillary Glucose 133 H 142 H 140 H Calcium Phosphorus Magnesium Total Bilirubin AST ALT Alkaline Phosphatase Total Protein Albumin 03/02/25 03/02/25 03/02/25 04:05 04:52 08:38 WBC 13.3 H RBC 2.95 L Hgb 7.9 L Hct 25.8 L MCV 87.5 MCH 26.8 MCHC 30.6 L RDW 17.1 H Plt Count 306 MPV 9.8 Immature Gran % (Auto) 0.9 H Neut % (Auto) 87.0 H Lymph % (Auto) 6.4 L [place] % (Auto) 5.3 Eos % (Auto) 0.2 Baso % (Auto) 0.2 Lymph # (Auto) 0.85 L [place] # (Auto) 0.7 H Eos # (Auto) 0.0 Baso # (Auto) 0.0 Abs Immat Gran (auto) 0.12 H Absolute Neuts (auto) 11.6 H Absolute Nucleated RBC 0.000 Nucleated RBC % 0.0 Puncture Site Left radial ABG pH 7.466 H ABG pCO2 24.8 L ABG pO2 91.4 ABG PO2/FiO2 Ratio 3.05 ABG HCO3 17.5 L ABG O2 Saturation 97.5 ABG O2 Content 14.7 L ABG Base Excess -4.9 A-a Gradient 93.4 Oxyhemoglobin 95.4 Carboxyhemoglobin 1.2 Methemoglobin 0.3 Reduced Hemoglobin 3.1 Total Hemoglobin 10.9 L O2 Delivery Device Ventilator O2 Liters/Min Not Reportable Minute Volume Not Reportable Vent Rate Not Reportable Vent Mode Asv FiO2 30 Tidal Volume Not Reportable PEEP 5 Peak Inspir Pressure Not Reportable Pressure Support Not Reportable Sodium 142 Potassium 3.7 Chloride 112 H Carbon Dioxide 22 Anion Gap 8 BUN 26 H Creatinine 0.43 L Estim Creat Clear Calc 140 Estimated GFR > 60 Glucose 163 H POC Capillary Glucose 166 H Calcium 8.5 Phosphorus 3.2 Magnesium 2.1 Total Bilirubin 0.5 AST 25 ALT 27 Alkaline Phosphatase 135 H Total Protein 5.8 L Albumin 2.4 L 03/02/25 12:03 WBC RBC Hgb Hct MCV MCH MCHC RDW Plt Count MPV Immature Gran % (Auto) Neut % (Auto) Lymph % (Auto) [place] % (Auto) Eos % (Auto) Baso % (Auto) Lymph # (Auto) [place] # (Auto) Eos # (Auto) Baso # (Auto) Abs Immat Gran (auto) Absolute Neuts (auto) Absolute Nucleated RBC Nucleated RBC % Puncture Site ABG pH ABG pCO2 ABG pO2 ABG PO2/FiO2 Ratio ABG HCO3 ABG O2 Saturation ABG O2 Content ABG Base Excess A-a Gradient Oxyhemoglobin Carboxyhemoglobin Methemoglobin Reduced Hemoglobin Total Hemoglobin O2 Delivery Device O2 Liters/Min Minute Volume Vent Rate Vent Mode FiO2 Tidal Volume PEEP Peak Inspir Pressure Pressure Support Sodium Potassium Chloride Carbon Dioxide Anion Gap BUN Creatinine Estim Creat Clear Calc Estimated GFR Glucose POC Capillary Glucose 213 H Calcium Phosphorus Magnesium Total Bilirubin AST ALT Alkaline Phosphatase Total Protein Albumin Post-procedural complaints: none Patient Feedback: Patient satisfied with anesthetic care.
[2025-03-02] MEDS: INSULIN GLARGINE (*BKC) 100 UNITS/ML 10 UNITS SUB-Q (20:35)
[2025-03-02] MEDS: SENNA/DOCUSATE SODIUM TABLET 1 TAB FEED TUBE (20:38)
[2025-03-03] VITALS (13 sets, daily range): BP systolic 118–138; BP diastolic 67–81; PULSE 99–113; RESP 16–32; TEMP 36.4–37.2; O2SAT 95–97
[2025-03-03 04:05] LABS: Alveolar/Arterial O2 Gradient 102.5 mmHg; Carboxyhemoglobin 0.8 % THb (0-2.0); Fractional Inspired Oxygen 30 %; HCO3 ABG 24.5 mEq/l (22.0-26.0); Methemoglobin ABG 0.3 %THb (0-1.5); Oxygen Content ABG 11.5 %vol (16.0-22.0); Oxygen Saturation ABG 96.5 % (95.0-100.0); PCO2 ABG 30.5 mmHg (35.0-45.0); PO2 ABG 75.6 mmHg (80.0-100.0); PO2 FiO2 Ratio Arterial Blood 2.52 %; Reduced Hemoglobin 4.3 %THb (0-5.0)
[2025-03-03 04:07] LABS: Modified Allen's Test Pass; Site Drawn RIGHT RADIAL
[2025-03-03 04:26] LABS: Alanine Aminotransferase 22 U/L (6-50); Albumin Level 2.5 g/dL (3.5-5.1); Alkaline Phosphatase 158 U/L (38-126); Anion Gap 3 mmol/L (4-12); Aspartate Amino Transferase 34 U/L (17-59); Bilirubin,Total 0.3 mg/dL (0.2-1.3); Blood Urea Nitrogen 25 mg/dL (9-20); Calcium 8.3 mg/dL (8.4-10.2); Carbon Dioxide 27 mmol/L (22-30); Chloride 113 mmol/L (98-107); Estimated CRCL calculation 167 ml/min; Estimated Glomerular Filt Rate > 60; Glucose 242 mg/dL (65-110); Magnesium 2.1 mg/dL (1.6-2.3); Potassium 3.4 mmol/L (3.4-5.0); Sodium 143 mmol/L (137-145); Total Protein 5.8 g/dL (6.3-8.2)
[2025-03-03 04:30] LABS: Hematocrit 23.9 % (42.0-52.0); Hemoglobin 7.2 g/dL (14.0-18.0); Mean Corpuscular HGB Conc 30.1 g/dl (32-36); Mean Corpuscular Hemoglobin 26.4 pg (26-34); Mean Corpuscular Volume 87.5 fl (80-100); Platelet Count Result 274 k/mm3 (150-375); Red Blood Count 2.73 M/mm3 (4.6-6.20); White Blood Count 14.7 K/mm3 (4.5-10.0)
[2025-03-03 04:54] LABS: Band Neutrophils Percent 9 % (0-6); Lymphocytes Absolute Manual 0.88 K/mm3 (1.1-4.5); Lymphocytes Percent Manual 6.0 % (18-44); Monocytes Absolute Manual 0.14 K/mm3 (0.1-0.90); Monocytes Percent Manual 1 % (3-9); Neutrophils Absolute Manual 13.67 K/mm3 (1.3-6.7); Neutrophils Percent Manual 84 % (46-73); Total Cells Counted 100
[2025-03-03 04:55] LABS: Anisocytosis 1+; Schistocytes None Seen
[2025-03-03] MEDS: CENTRAL LINE FLUSH 10 ML IV PUSH (05:37)
[2025-03-03] MEDS: INSULIN ASPART (*BKC) 100 UNITS/ML SUB-Q ×2 (05:44→11:36)
[2025-03-03] MEDS: THIAMINE HCL 200 MG/2 ML VIAL 100 MG IV PUSH (08:12)
[2025-03-03] MEDS: MINERAL OIL/WHITE PETROLATUM OINTMENT 1 APPLIC EACH EYE (08:12)
[2025-03-03] MEDS: PANTOPRAZOLE SODIUM IV 40 MG VIAL IV PUSH (08:12)
[2025-03-03] MEDS: POTASSIUM CHLORIDE 20 MEQ PACKET (FOR LIQUID) 40 MEQ PO ×2 (08:13)
[2025-03-03] MEDS: ALBUMIN HUMAN 25% 25 GM/100 ML 100 ML IVPB (08:13)
[2025-03-03] MEDS: MULTIVITAMINS THERAPEUTIC TAB (*BKC) 1 TABLET FEED TUBE (08:13)
[2025-03-03] MEDS: CHLOROTHIAZIDE 500 MG VIAL IV PUSH (08:14)
[2025-03-03] MEDS: INSULIN GLARGINE (*BKC) 100 UNITS/ML 10 UNITS SUB-Q (08:31)
[2025-03-03] MEDS: FOLIC ACID 1 MG/0.2 ML INJ IV PUSH (08:31)
--- NOTE | 2025-03-03 10:36 | P.DS_ITS ---
DS: Admitting Diagnosis Discharge Date 03/03/2025 Admitting Diagnosis Septic shock, UTI, encephalopathy, severe protein calorie malnutrition DS: Discharge Diagnosis Discharge Diagnosis (1) Septic shock: Code(s): A41.9 - Sepsis, unspecified organism; R65.21 - Severe sepsis with septic shock Status: Acute Assessment and Plan: 02/17: Patient presented from a residential with altered mental status, shortness of breath. Initially had Leukocytosis. Patient did receive 2 L IV fluid bolus in the ER, was transferred to the intermediate Unit and immediately upon arrival to the IMU, rapid response was called due to hypoxia, tachypnea, tachycardia. Patient was transferred to of the ICU -likely etiology pneumonia and UTI -lactic acid normalized in patient is now off of vasopressors -adequately fluid-resuscitated in the ICU -02/17: Preliminary blood cultures are negative x2 -02/17: Urine cultures grew superficial organisms -02/18: Sputum culture growing Klebsiella friend, MRSA and Dolores tropicalis 02/17: Nasal MRSA screen was positive Completed full course off cefepime, doxycycline and vancomycin Off IV fluids (2) Acute respiratory failure: Code(s): J96.00 - Acute respiratory failure, unspecified whether with hypoxia or hypercapnia Status: Acute Assessment and Plan: 02/17: Patient was transferred to the ICU from intermediate Unit. He was emergently intubated by ER physician likely cause multifocal pneumonia Patient is on CMV mode of ventilation, peep of 10, 40% FiO2. Decrease PEEP to 8 Continue bronchodilators - Xopenex and Atrovent but change to p.r.n. 02/22 Patient awake and following commands but tachypneic with rate in high 30s. When I placed patient on PSV 8 patient's respiratory rate was up to 40s. Patient was started on Precedex infusion for anxiolysis and given Lasix 02/23 5/8 PSV done again today. RSBI borderline. Patient with increased work of breathing. Will increase pressure support and continue as long as patient tolerates. Will give another dose of Lasix today 02/24 PSV weaning trial was again attempted this morning. High RSBI and respiratory rate. Patient needed pressure support of 15/8 for adequate RSBI. Patient was then placed on ASV at 80%. It was continued through the day. Patient appears very weak and debilitated. Weaning is going to be difficult and long. Patient may very well need tracheostomy. Will continue working with him daily 02/26 patient placed on PSV again. His tidal volumes are in 200s. She is debilitated and weak. Patient has history of high cervical myelopathy they could be component of diaphragmatic weakness. Even if he is extubated he will not be able to use BiPAP considering he can not even lift his hands off the bed. I anticipate patient will need tracheostomy. Will continue working through the weekend and revisit this with patient's family. 02/27 will try PSV again today. I will discuss with family with regard to option of tracheostomy and PEG tube placement 02/28 patient was placed on PSV again his tidal volumes are less than 200 mL and rate consistently above 30. Patient was placed on higher pressure support of 10 which provides acceptable RSBI. I will discuss with patient's family regarding proceeding with tracheostomy and PEG tube placement. 03/01: Status post tracheostomy and PEG tube placed. Patient tolerated ASV post tracheostomy with spontaneous breathing but requiring higher pressure s upport 03/02: Placed on PSV 1205, tolerating for now, will switch to ASV if patient tires out or is tachypneic/tachycardic. Lasix with albumin will be given today Chest x-ray and ABG reviewed. Decrease tidal volume to 300 Continue daily assessment for SBT, Status post antibiotics ammonia 02/17: CT chest, abdomen and pelvis IMPRESSION: 1. Moderate sized groundglass opacities scattered throughout both lungs most prominent in the lower lobes. In addition, there are small to moderate sized patchy consolidations scattered throughout both lungs most prominent in the lower lobes. The findings are concerning for multilobar pneumonia. Other etiologies are possible but are felt to be less likely. Recommend follow-up to resolution. 2.There is a Daniels catheter in the bladder. Mild concentric thickening of the calvo of the bladder. Small amount of nondependent air in the bladder which may be due to recent instrumentation or cystitis. 3. Large amount of stool in the rectum. 4. The stomach is distended and filled with air. 5. Small amount of fat stranding with a few locules of air about the posterior aspect of the mid and distal sacrum. No obvious loculated fluid collection silas ntified. No convincing CT evidence for sacral osteomyelitis at this time. (3) Multifocal pneumonia: Code(s): J18.8 - Other pneumonia, unspecified organism Status: Acute Assessment and Plan: Multifocal pneumonia Completed antibiotics (4) Acute UTI: Code(s): N39.0 - Urinary tract infection, site not specified Status: Acute Assessment and Plan: UA was positive for UTI, -completed antibiotics (5) Diabetes: Qualifiers: Diabetes mellitus type: other specified (including JODEE) Diabetes mellitus chcf insulin use: with computer terminal operator use Diabetes mellitus co mplication status: with skin complications Diabetes mellitus complication detail: with other skin ulcer Qualified Code(s): E13.622 - Other specified diabetes mellitus with other skin ulcer; Z79.4 - retirement (current) use of insulin Code(s): E11.9 - Type 2 diabetes mellitus without complications Status: Acute Assessment and Plan: Accu-Cheks and sliding scale insulin Will restart Lantus and 10 units q.h.s. now that patient is back on tube feeds which are being increased to goal (6) Sacral ulcer: Qualifiers: Non-pressure ulcer stage: unspecified non-pressure ulcer stage Qualified Code(s): L98.429 - Non-pressure chronic ulcer of back with unspecified severity Code(s): L98.429 - Non-pressure chronic ulcer of back with unspecified severity Status: Acute Assessment and Plan: Patient has a sacral ulcer -appreciate wound care evaluation and recommendations 02/17: CT abdomen and pelvis: Small amount of fat stranding with a few locules of air about the posterior aspect of the mid and distal sacrum. No obvious loculated fluid collection identified. No convincing CT evidence for sacral osteomyelitis at this time. (7) Severe protein-calorie malnutrition: Code(s): E43 - Unspecified severe protein-calorie malnutrition Status: Acute Assessment and Plan: According to the niece patient has lost lot of weight since August 2024, initially she stated he unable to feed himself due to his neuropathy and was not being adequately fed at the residential, after this surgery and when he was able to move his arms he stated he was not eating well because he was not hungry. -patient's BMI is 18.3, given his height, age, gender he does classify into severe protein calorie malnutrition -appreciate dietitian evaluation recommendations -continue tube feeds. Advance to goal today -continue thiamine and folic acid. Contain MVI -discontinue Reglan as patient having adequate bowel movements and tolerating tube feeds (8) Electrolyte imbalance: Code(s): E87.8 - Other disorders of electrolyte and fluid balance, not elsewhere classified Status: Acute Assessment and Plan: Hypernatremia improved. Off D5 water. Continue increased free water flushes Replace low potassium Nephrology following (9) Constipation: Qualifiers: Constipation type: other constipation type Qualified Code(s): K59.09 - Other constipation Code(s): K59.00 - Constipation, unspecified Status: Acute Assessment and Plan: Large amount of stool in the rectal vault as seen on the CT scan of the abdomen and pelvis -patient has not had a bowel movement -02/20: Soapsuds enema was given without much improved -status post lactulose enema -continue p.r.n. MiraLax bisacodyl and senna S -patient is having bowel movements now (10) Weakness: Code(s): R53.1 - Weakness Status: Acute Assessment and Plan: Patient had cervical myelopathy and had some ankle surgery with fusion and instrumentation early this year since then patient has been mostly bedbound. Family states the patient has been in the residential in the bed and few times in a wheelchair. He has significant weakness in both arms and legs. They also state that he had poor p.o. intake and had trouble and difficulty with the eating. Plan DVT prophylaxis: Heparin subQ, Stress ulcer prophylaxis: Protonix Nutrition: Tube feeds via PEG tube Code Status: Full code Critical Care Time Spent: 32 minutes Due to a high probability of clinically significant, life threatening deterioration, the patient required my highest level of preparedness to intervene emergently and I personally spent this critical care time directly and personally managing the patient. This critical care time included obtaining a history; examining the patient; pulse oximetry; ordering and review of studies; arranging urgent treatment with development of a management plan; evaluation of patient's response to treatment; frequent reassessment; and discussions with other providers. It was exclusive of separately billable procedures and treating other patients and teaching time. Please see Assessment and Plan section and the rest of the note for further information on patient assessment and treatment This dictation may have been done utilizing a voice recognition system. Attempts have been made to correct errors. However, there may be uncorrected grammatical, spelling, and recognitions errors present. DS: Summary Hospital Course Reason for hospitalization: Interval history: Reason for consult: Septic shock, acute respiratory failure, pneumonia, UTI, lactic acidosis, altered mental status 64yo male with HLD, DM and Asthma who presents with altered mental status and hypoxia from his residential. Rapid response called once patient arrived to IMU for being hypoxic. Transferred to the ICU and emergently intubated by ER physician 03/01: Tracheostomy and PEG tube placement 03/03/2025: Patient seen and examined the ICU, remains intubated on ASV mode of ventilation, peep of 5, 30% FiO2. Has been off Precedex > 48 hrs. , is awake, alert, nods to questions, follows simple commands in upper extremities, significantly weak in lower extremities. 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 Patient was awake when he arrived to the ER, was denying any headaches, chest pain, abdominal pain. According the records and nursing staff at the residential stated that the patient was alert on the morning of admission but when they went to check in the afternoon he was found to be altered and was having difficulty breathing. In the ED patient was given 2 L IV fluid bolus of normal saline, started on cefepime and vancomycin and was transferred to the intermediate Unit for further management. Upon arrival to the intermediate unit patient was tachypneic, tachycardic, hypoxic in the 80s on 15 L non-rebreather mask, rapid response was called and patient was emergently intubated by ER physician. Sedated with fentanyl and Versed infusion. Overnight patient's blood pressures dropped, started him on peripheral Toan-Synephrine. Centralized was inserted by myself morning of 02/18/2025. Patient was significantly dry upon placing the central line, I have ordered 1 L LR bolus. Patient has been maxed out on Toan-Synephrine at 180 mcg/min. Have ordered Levophed to be started to maintain a MAP> 65 mmHg. Patient this morning is on 60% FiO2 and hypoxic on the ABGs. White count dropped to 3.8 from 17.2 yesterday. Hemoglobin remains stable, potassium of 2.9 and sodium of 149. BUN is 47 creatinine 0.83. CO2 21, patient remains on sodium bicarb infusion. Lactic acid was 2.8 and repeat was 2.1. UA was positive, patient was positive for MRSA screen CT brain on admission did not show any acute intracranial hemorrhage or mass effect. Possible chronic ischemic white matter changes CT T chest abdomen and pelvis on admission: Moderate-sized down denies opacities scattered throughout both lungs most prominent lower lobes patchy consolidation scattered throughout both lungs most prominent in the lower lobe, findings are concerning for multilobar pneumonia. Large amount of stool in the rectum, Daniels catheterization and a bladder, mild concentric thickening of the calvo of the bladder small amount of nondependent air in the bladder which may be due to recent instrumentation or cystitis. The stomach is distended and filled with air. Small amount of fat stranding with few locules of a around the posterior aspect of mid and distal sacrum no obvious loculated fluid collection identified no convincing CT evidence of sacral osteomyelitis at this time During the course of hospital stay patient developed Klebsiella and MRSA pneumonia, blood cultures and urine cultures were negative. Patient completed a full course of doxycycline, cefepime and vancomycin. Tube feeds were started very gradually due to increase risk of refeeding syndrome. Patient's phosphorus level was significantly low upon admission, which were aggressively repleted with slow increase in his tube feeds. Currently he is at goal at 70 mL/hour and tolerating. Patient also had a large stool ball on admission, received multiple enemas and suppositories along with lactulose, MiraLax. Patient cleared stool ball and now is been having regular bowel movements. Respiratory standpoint patient was intubated, received his trach and PEG on 03/01/2025. Has been tolerating pressure support ventilation 12/5 for few hours, then gets tachypneic and tachycardic and has to be placed back on ASV mode which he is tolerating well, mostly all spontaneous breaths with higher pressure support. Patient initially had some elevated creatinine acute kidney injury, adequately fluid-resuscitated, maintained mean arterial pressures greater than 65 mmHg, urine output has been adequate, patient is being diuresed and creatinine and BUN has stabilized and and within normal limits 03/03/2025: Patient being transferred to [facility] in [email or web address] Status at Discharge Cognitive/behavioral status at discharge: Stable Functional status at discharge: bed bound Overall status at discharge: patient is progressing back to baseline Time Spent with Patient Time attestation: Total time spent providing and/or coordinating discharge services: Time spent: Greater than 30 minutes Exam Narrative: General: Status post tracheostomy, not on any sedation, in no acute distress HEENT:? Pupils equal and reactive, sclera is clear, tracheostomy in place Neck:? Supple Respiratory:? Coarse breath sounds bilaterally Lt > Rt, decreased at bases, no wheezing, adequate air entry Cardiac:? S1-S2 is normal, normal sinus rhythm Abdomen:? Scaphoid abdomen, soft, nontender, hypoactive bowel sounds, patient cachectic and malnourished, patient has a sacral decubitus ulcer. PEG tube in place Extremities:? Bilateral upper and lower extremity puffiness noted, decreased pedal pulses Neuro:? Status post tracheostomy, on ventilator. Not on any sedation, is awake, nods to questions, follows simple commands in upper extremities, extremely weak and lower extremities, barely able to move his lower extremities Skin:? old healing ulcers on the feet bilaterally Psych:? Unable to assess at this time DS: Data Data Completed and Pending Labs on day of discharge: Labs from last 24 hours 03/03/25 03/03/25 03/03/25 05:36 04:04 03:55 WBC 14.7 H RBC 2.73 L Hgb 7.2 L Hct 23.9 L MCV 87.5 MCH 26.4 MCHC 30.1 L RDW 17.4 H Plt Count 274 MPV 9.9 Immature Gran % (Auto) Not Reportable Neut % (Auto) Not Reportable Lymph % (Auto) Not Reportable Republic % (Auto) Not Reportable Eos % (Auto) Not Reportable Baso % (Auto) Not Reportable Lymph # (Auto) Not Reportable Republic # (Auto) Not Reportable Eos # (Auto) Not Reportable Baso # (Auto) Not Reportable Abs Immat Gran (auto) Not Reportable Absolute Neuts (auto) Not Reportable Absolute Nucleated RBC Not Reportable Total Counted 100 Neutrophils % (Manual) 84 H Band Neutrophils % 9 H Lymphocytes % (Manual) 6.0 L Monocytes % (Manual) 1 L Nucleated RBC % Not Reportable Abs Neuts (Manual) 13.67 H Abs Lymphs (Manual) 0.88 L Abs Monocytes (Manual) 0.14 Platelet Estimate Adequate Anisocytosis 1+ Schistocytes None seen Puncture Site Right radial ABG pH 7.520 H* ABG pCO2 30.5 L ABG pO2 75.6 L ABG PO2/FiO2 Ratio 2.52 ABG HCO3 24.5 ABG O2 Saturation 96.5 ABG O2 Content 11.5 L ABG Base Excess 1.8 A-a Gradient 102.5 Oxyhemoglobin 94.6 Carboxyhemoglobin 0.8 Methemoglobin 0.3 Reduced Hemoglobin 4.3 Total Hemoglobin 8.6 L O2 Delivery Device Ventilator O2 Liters/Min Not Reportable Minute Volume Not Reportable Vent Rate Not Reportable Vent Mode Asv FiO2 30 Tidal Volume Not Reportable PEEP 5 Peak Inspir Pressure Not Reportable Pressure Support Not Reportable Sodium 143 Potassium 3.4 Chloride 113 H Carbon Dioxide 27 Anion Gap 3 L BUN 25 H Creatinine 0.33 L Estim Creat Clear Calc 167 Estimated GFR > 60 Glucose 242 H POC Capillary Glucose 232 H Calcium 8.3 L Phosphorus 2.4 L Magnesium 2.1 Total Bilirubin 0.3 AST 34 ALT 22 Alkaline Phosphatase 158 H Total Protein 5.8 L Albumin 2.5 L 03/02/25 03/02/25 03/02/25 23:55 20:35 18:23 WBC RBC Hgb Hct MCV MCH MCHC RDW Plt Count MPV Immature Gran % (Auto) Neut % (Auto) Lymph % (Auto) Republic % (Auto) Eos % (Auto) Baso % (Auto) Lymph # (Auto) Republic # (Auto) Eos # (Auto) Baso # (Auto) Abs Immat Gran (auto) Absolute Neuts (auto) Absolute Nucleated RBC Total Counted Neutrophils % (Manual) Band Neutrophils % Lymphocytes % (Manual) Monocytes % (Manual) Nucleated RBC % Abs Neuts (Manual) Abs Lymphs (Manual) Abs Monocytes (Manual) Platelet Estimate Anisocytosis Schistocytes Puncture Site ABG pH ABG pCO2 ABG pO2 ABG PO2/FiO2 Ratio ABG HCO3 ABG O2 Saturation ABG O2 Content ABG Base Excess A-a Gradient Oxyhemoglobin Carboxyhemoglobin Methemoglobin Reduced Hemoglobin Total Hemoglobin O2 Delivery Device O2 Liters/Min Minute Volume Vent Rate Vent Mode FiO2 Tidal Volume PEEP Peak Inspir Pressure Pressure Support Sodium Potassium Chloride Carbon Dioxide Anion Gap BUN Creatinine Estim Creat Clear Calc Estimated GFR Glucose POC Capillary Glucose 196 H 211 H 214 H Calcium Phosphorus Magnesium Total Bilirubin AST ALT Alkaline Phosphatase Total Protein Albumin 03/02/25 12:03 WBC RBC Hgb Hct MCV MCH MCHC RDW Plt Count MPV Immature Gran % (Auto) Neut % (Auto) Lymph % (Auto) Republic % (Auto) Eos % (Auto) Baso % (Auto) Lymph # (Auto) Republic # (Auto) Eos # (Auto) Baso # (Auto) Abs Immat Gran (auto) Absolute Neuts (auto) Absolute Nucleated RBC Total Counted Neutrophils % (Manual) Band Neutrophils % Lymphocytes % (Manual) Monocytes % (Manual) Nucleated RBC % Abs Neuts (Manual) Abs Lymphs (Manual) Abs Monocytes (Manual) Platelet Estimate Anisocytosis Schistocytes Puncture Site ABG pH ABG pCO2 ABG pO2 ABG PO2/FiO2 Ratio ABG HCO3 ABG O2 Saturation ABG O2 Content ABG Base Excess A-a Gradient Oxyhemoglobin Carboxyhemoglobin Methemoglobin Reduced Hemoglobin Total Hemoglobin O2 Delivery Device O2 Liters/Min Minute Volume Vent Rate Vent Mode FiO2 Tidal Volume PEEP Peak Inspir Pressure Pressure Support Sodium Potassium Chloride Carbon Dioxide Anion Gap BUN Creatinine Estim Creat Clear Calc Estimated GFR Glucose POC Capillary Glucose 213 H Calcium Phosphorus Magnesium Total Bilirubin AST ALT Alkaline Phosphatase Total Protein Albumin Discharge Plan Discharge Attending physician on discharge: David Naylor Consulting providers: David Naylor; Rashad Hassan; José Miguel Eaton; Shawn Menendez Discharging Clinician: David Naylor Anticipated Discharge Date/Time: 03/03/25 10:43 Patient Disposition: [facility] Hospital Activity: other - see discharge instructions Diet: other - see discharge instructions Wound Care Instructions: follow printed instructions and other - see discharge instructions Patient Instructions: Pneumonia (GEN), Nasogastric Tube (GEN), Endotracheal Tube (GEN), Ventilator (GEN) Patient Language: Niuean Stand Alone Forms: General Discharge Information Discharge Medications: New acetaminophen 325 mg Tablet 650 mg feeding tube Q4H PRN (Reason: Mild Pain (1-3) Or Fever) Qty: 14 0RF thiamine HCl (vitamin B1) 100 mg/mL Solution 100 mg IV PUSH QAM Qty: 50 0RF insulin glargine [Lantus U-100 Insulin] 100 unit/mL Solution 20 unit subcut HS Qty: 10 0RF pantoprazole [Protonix] 40 mg Recon Soln 40 mg IV PUSH Q12HR Qty: 10 0RF heparin (porcine) 5,000 unit/mL Solution 5,000 unit subcut Q8HR Qty: 25 0RF folic acid 5 mg/mL Solution 1 mg IV PUSH QAM Qty: 10 0RF polyethylene glycol 3350 [Miralax] 17 gram Powder In Packet 17 g PO QAM PRN (Reason: Constipation) Qty: 14 0RF Discontinued metformin 1,000 mg tablet 1,000 mg PO BID cyclobenzaprine 10 mg tablet 10 mg PO Q8H aspirin 81 mg tablet,delayed release (DR/EC) 81 mg PO DAILY insulin glargine [Lantus Solostar U-100 Insulin] 100 unit/mL (3 mL) insulin pen 20 unit SUB-Q HS nifedipine 30 mg tablet extended release 24hr 30 mg PO .qday docusate sodium 100 mg tablet 100 mg PO Q12H PRN (Reason: constipation) docusate sodium 100 mg tablet 100 mg PO BID fluticasone propionate 50 mcg/actuation spray,suspension 2 spray INTRANASAL DAILY ergocalciferol (vitamin D2) 50 mcg (2,000 unit) tablet 50 mcg PO DAILY ropinirole 1 mg tablet 1 mg PO DAILY ferrous sulfate [Xiomy-Time] 325 mg (65 mg iron) tablet 325 mg PO DAILY ascorbic acid (vitamin C) 500 mg tablet 500 mg PO DAILY Jardiance 25 mg tablet 25 mg PO DAILY multivitamin with iron-mineral Tablet 1 tablet PO DAILY melatonin 3 mg tablet 3 mg PO HS PRN (Reason: insomnia) Proair Digihaler 90 mcg/actuation aero powdr breath act w/sensor 2 inh inhalation Q6H PRN (Reason: shortness of breath) acetaminophen 500 mg tablet 1,000 mg PO Q6H PRN (Reason: pain) Date of admission: 02/17/25 17:46 Primary Care Provider: UNKNOWN,DOCTOR Admitting Provider: Omari Peterson Attending physician on admission: Omari Peterson Condition: Stable Quality VTE Prophylaxis VTE prophylaxis: pharmacologic ordered
== END 2025-03-03 14:52 | DRG 4 ==
LOC: ANHED 17:45 → ANHIMU 18:34 → ANHICU 19:48
PROVIDERS: General Practice; Internal Medicine; Internal Medicine Gastroenterology; Internal Medicine Nephrology; Nurse Practitioner Gerontology; Otolaryngology; Admitting Provider Internal Medicine; Emergency Provider Family Medicine; Visit Provider Internal Medicine
PROC: 0B110F4 Bypass Trachea to Cutaneous with Tracheostomy Device, Open Approach (ICD-10-PCS; principal; 2025-03-01 10:30)
PROC: 0DH63UZ Insertion of Feeding Device into Stomach, Percutaneous Approach (ICD-10-PCS; CPT 43246; principal; 2025-03-01 14:30)
DX: A41.9 Sepsis, unspecified organism (principal); R65.21 Severe sepsis with septic shock; J15.0 Pneumonia due to Klebsiella pneumoniae; E43 Unspecified severe protein-calorie malnutrition; L89.153 Pressure ulcer of sacral region, stage 3; J96.01 Acute respiratory failure with hypoxia; K72.00 Acute and subacute hepatic failure without coma; G93.41 Metabolic encephalopathy; N39.0 Urinary tract infection, site not specified; E87.21 Acute metabolic acidosis; Z68.1 Body mass index [BMI] 19.9 or less, adult; N17.9 Acute kidney failure, unspecified; E87.0 Hyperosmolality and hypernatremia; T83.030A Leakage of cystostomy catheter, initial encounter; B37.89 Other sites of candidiasis; E88.A Wasting disease (syndrome) due to underlying condition; J45.909 Unspecified asthma, uncomplicated; B95.62 Methicillin resistant Staphylococcus aureus infection as the cause of diseases classified elsewhere; E11.42 Type 2 diabetes mellitus with diabetic polyneuropathy; R35.89 Other polyuria; E87.6 Hypokalemia; E83.39 Other disorders of phosphorus metabolism; D64.9 Anemia, unspecified; G25.81 Restless legs syndrome; E78.5 Hyperlipidemia, unspecified; K56.41 Fecal impaction; M19.90 Unspecified osteoarthritis, unspecified site; I25.10 Atherosclerotic heart disease of native coronary artery without angina pectoris; F17.210 Nicotine dependence, cigarettes, uncomplicated; R81 Glycosuria; Z98.1 Arthrodesis status
CPT/HCPCS: 31500; 36415; 36600; 43246; 70450; 71045; 71260; 74019; 74177; 76705; 76770; 80048; 80053; 80069; 80074; 80202; 81001; 81050; 82010; 82375; 82550; 82570; 82805; 82948; 83050; 83605; 83690; 83735; 83930; 83935; 84100; 84133; 84300; 85018; 85025; 85027; 85610; 85730; 85999; 87040; 87070; 87086; 87205; 87637; 87641; 93005; 93306; 94002; 94003; 94640; 96361; 96365; 99291; A4629; A9270; C1751; J0282; J0330; J0360; J0613; J0690; J0692; J1120; J1205; J1644; J1815; J1938; J2004; J2250; J2371; J2470; J2704; J2765; J2997; J3010; J3373; J3411; J3475; J3480; J7030; J7040; J7050; J7070; J7120; P9047; Q9967